=== PATIENT | male | born 1950 | race Caucasian/White ===

== ENCOUNTER 2017-12-15 16:32 | Inpatient (IN) | payer MEDICARE ==
--- NOTE | 2017-12-15 16:55 | Emergency Department Report ---
ED Shortness of Breath HPI - General Stated Complaint: YAW Time Seen by Provider: 12/15/17 16:33 Source: patient, EMS Mode of arrival: Stretcher Limitations: No Limitations - History of Present Illness Initial Comments: Patient is a 67 year-old mellitus emergency room with complaints of shortness of breath and cough that started 2 weeks ago. Patient states that over the last 24 hours the cough sputum production and shortness of breath have worsened. Patient states he's had a productive cough for one week with yellow sputum Patient was brought in by EMS. When EMS arrived at the patient's house they noted his sat was 89% placed him on 100% patient was 99% on his 100% nonrebreather. Patient has increased work to breathe. Patient denies fever chills. Patient denies chest pain. Patient denies diaphoresis. MD Complaint: shortness of breath, cough -: Sudden Consistency: constant Improves With: oxygen, rest, bronchodilators, upright position Worsens With: lying flat, exertion, movement Known History Of: diabetes Context: recent URI Associated Symptoms: cough, sputum production Treatments Prior to Arrival: oxygen, bronchodilator - Related Data Home Oxygen Therapy: No Allergies Allergy/AdvReac Type Severity Reaction Status Date / Time No Known Allergies Allergy Verified 12/15/17 17:22 ED Review of Systems ROS: Stated complaint: YAW Other details as noted in HPI Constitutional: denies: chills, fever Eyes: denies: eye pain, eye discharge, vision change ENT: denies: ear pain, throat pain Respiratory: cough, shortness of breath, wheezing Cardiovascular: denies: chest pain, palpitations Endocrine: no symptoms reported Gastrointestinal: denies: abdominal pain, nausea, diarrhea Genitourinary: denies: urgency, dysuria Musculoskeletal: denies: back pain, joint swelling, arthralgia Skin: denies: rash, lesions Neurological: denies: headache, weakness, paresthesias Psychiatric: denies: anxiety, depression Hematological/Lymphatic: denies: easy bleeding, easy bruising ED Past Medical Hx - Past Medical History Previous Medical History?: Yes Hx Diabetes: Yes Hx Asthma: No Hx COPD: No - Surgical History Past Surgical History?: No - Family History Family history: no significant - Social History Smoking Status: Never Smoker Substance Use Type: None ED Physical Exam - General Limitations: No Limitations General appearance: alert, in distress - Head Head exam: Present: atraumatic, normocephalic - Eye Eye exam: Present: normal appearance - ENT ENT exam: Present: mucous membranes moist - Neck Neck exam: Present: normal inspection - Respiratory Respiratory exam: Present: respiratory distress, wheezes, rhonchi, accessory muscle use, decreased breath sounds - Cardiovascular Cardiovascular Exam: Present: regular rate, normal rhythm. Absent: systolic murmur, diastolic murmur, rubs, gallop - GI/Abdominal GI/Abdominal exam: Present: soft, normal bowel sounds - Rectal Rectal exam: Present: deferred - Extremities Exam Extremities exam: Present: normal inspection - Back Exam Back exam: Present: normal inspection - Neurological Exam Neurological exam: Present: alert, oriented X3 - Psychiatric Psychiatric exam: Present: normal affect, normal mood - Skin Skin exam: Present: warm, dry, intact, other (jaundice appearance). Absent: rash ED Course Vital Signs 12/15/17 12/15/17 12/15/17 17:04 17:09 17:16 Temperature 97.5 F L Pulse Rate 97 H 96 H Pulse Rate [ Anterior Bilateral Throughout] Respiratory 24 22 Rate Respiratory Rate [Anterior Bilateral Throughout] Blood Pressure 152/79 Blood Pressure 152/79 [Right] O2 Sat by Pulse 100 100 Oximetry 12/15/17 12/15/17 12/15/17 17:30 17:43 17:46 Temperature Pulse Rate 95 H 92 H 89 Pulse Rate [ Anterior Bilateral Throughout] Respiratory 20 22 20 Rate Respiratory Rate [Anterior Bilateral Throughout] Blood Pressure 159/88 159/88 159/88 Blood Pressure [Right] O2 Sat by Pulse 100 100 100 Oximetry 12/15/17 12/15/17 12/15/17 17:49 17:56 18:34 Temperature Pulse Rate 96 H Pulse Rate [ 91 H 96 H Anterior Bilateral Throughout] Respiratory 22 Rate Respiratory 21 21 Rate [Anterior Bilateral Throughout] Blood Pressure 165/38 Blood Pressure [Right] O2 Sat by Pulse 100 Oximetry 12/15/17 18:37 Temperature Pulse Rate Pulse Rate [ Anterior Bilateral Throughout] Respiratory Rate Respiratory Rate [Anterior Bilateral Throughout] Blood Pressure Blood Pressure [Right] O2 Sat by Pulse 100 Oximetry - Reevaluation(s) Reevaluation #1: She is currently on BiPAP. 12/15/17 18:29 Is on BiPAP. Gas is improved. PH is 7.32. Patient work to breathe has decreased 12/15/17 18:51 - Consultations Consultation #1: Lennie consulted for admission. Hospitalist to admit patient to ICU. Dr. Best to assume care 12/15/17 18:40 ED Medical Decision Making - Lab Data Result diagrams: 12/15/17 17:16 12/15/17 17:16 - EKG Data -: EKG Interpreted by Me EKG shows normal: sinus rhythm, axis, intervals, QRS complexes, ST-T waves Rate: tachycardia - Radiology Data Radiology results: report reviewed FINAL REPORT EXAM: XR CHEST 1V AP HISTORY: Dyspnea TECHNIQUE: Frontal portable examination of the chest PRIORS: None FINDINGS: Nonspecific pleural thickening may be scar or effusion. Slight left lung base opacity may be pleural effusion or atelectasis. Patchy and interstitial opacities in both lungs may be edema and/or pneumonitis.. Cardiac silhouette size moderately enlarged. No acute displaced fracture. No pneumothorax IMPRESSION: Nonspecific pleural thickening may be scar or effusion. Slight left lung base opacity may be pleural effusion or atelectasis. Patchy and interstitial opacities in both lungs may be edema and/or pneumonitis. Cardiomegaly Transcribed By: BAL Dictated By: MAYTE RIZO MD Electronically Authenticated By: MAYTE RIZO MD Signed Date/Time: 12/15/17 180 - Medical Decision Making This 67-year-old male presents emergency room with shortness of breath 2 weeks. Patient also had cough and sputum production. Symptoms worsening over the last 24 hours. Patient is critically ill with admitted into the ICU and admitted to the hospitalist service for further evaluation and treatment. Patient's labs remarkable for elevated creatinine and elevated d-dimer, elevated troponin, anemia and elevated Wbc. Patient on chest x-ray found to have bilateral pneumonia. Patient will be treated accordingly and given packed red blood cells and antibiotics. Also noted to have cardiomegaly on x-ray. ABG and PH has improved on BiPAP. Lung sounds have improved after nebulizer., - Differential Diagnosis pna. chf. arf. hypoxia. sepsis. bronchitis, anemia. abd labs. Critical Care Time: Yes Critical care attestation.: If time is entered above; I have spent that time in minutes in the direct care of this critically ill patient, excluding procedure time. Critical Care Time: 45 minutes for cc time. ED Disposition Clinical Impression: Hypoxia, Metabolic acidosis, SOB (shortness of breath), Cough Respiratory failure Qualifiers: Chronicity: acute Respiratory failure complication: hypoxia Qualified Code(s): J96.01 - Acute respiratory failure with hypoxia Acute renal failure (ARF) Qualifiers: Acute renal failure type: unspecified Qualified Code(s): N17.9 - Acute kidney failure, unspecified Anemia Qualifiers: Anemia type: unspecified type Qualified Code(s): D64.9 - Anemia, unspecified Pneumonia Qualifiers: Pneumonia type: due to unspecified organism Laterality: unspecified laterality Lung location: unspecified part of lung Qualified Code(s): J18.9 - Pneumonia, unspecified organism Disposition: 09 OP ADMIT IP TO THIS HOSP Is pt being admited?: Yes Does the pt Need Aspirin: No Condition: Critical Time of Disposition: 18:36
[2017-12-15 17:30] LABS: Basophils # (Auto) 0.1 K/mm3 (0.0-0.1); Basophils % (Auto) 0.4 % (0.0-1.8); Eosinophils # (Auto) 0.1 K/mm3 (0.0-0.4); Eosinophils % (Auto) 0.7 % (0.0-4.3); Lymphocytes # (Auto) 1.9 K/mm3 (1.2-5.4); Lymphocytes % (Auto) 11.3 % (13.4-35.0); Mean Corpuscular HGB Conc 30 % (32-34); Mean Corpuscular Volume 76 fl (84-94); Monocytes # (Auto) 1.2 K/mm3 (0.0-0.8); Monocytes % (Auto) 7.4 % (0.0-7.3); Platelet Count 445 K/mm3 (140-440); Red Blood Count 2.12 M/mm3 (3.65-5.03); Red Cell Distribution Width 17.3 % (13.2-15.2)
[2017-12-15 17:33] LABS: Hemoglobin 4.9 gm/dl (11.8-15.2); Mean Corpuscular Hemoglobin 23 pg (28-32)
[2017-12-15] MEDS ORDERED: DUONEB *Not for PRN Use IH ONE ×2 (17:46→17:51)
--- NOTE | 2017-12-15 18:07 | XRay Report ---
FINAL REPORT EXAM: XR CHEST 1V AP HISTORY: Dyspnea TECHNIQUE: Frontal portable examination of the chest PRIORS: None FINDINGS: Nonspecific pleural thickening may be scar or effusion. Slight left lung base opacity may be pleural effusion or atelectasis. Patchy and interstitial opacities in both lungs may be edema and/or pneumonitis.. Cardiac silhouette size moderately enlarged. No acute displaced fracture. No pneumothorax IMPRESSION: Nonspecific pleural thickening may be scar or effusion. Slight left lung base opacity may be pleural effusion or atelectasis. Patchy and interstitial opacities in both lungs may be edema and/or pneumonitis. Cardiomegaly
[2017-12-15 18:20] LABS: Creatine Kinase MB 7.7 ng/mL (0.0-4.0)
[2017-12-15 18:22] LABS: Alanine Aminotransferase 13 units/L (7-56); Albumin 4.2 g/dL (3.9-5); BUN/Creatinine Ratio 11; Blood Urea Nitrogen 76 mg/dL (9-20); Calcium 8.2 mg/dL (8.4-10.2); Hemolysis Index 0
[2017-12-15 18:33] LABS: Chol/HDL Ratio 5.62 %; HDL Cholesterol 29 mg/dL (40-59); LDL Cholesterol,Direct 102 mg/dL (50-130)
[2017-12-15] MEDS ORDERED: NACL 0.9% 500 ML 500 ML IV ONE (18:52)
[2017-12-15] MEDS: ROCEPHIN/NS 1 GM/50 ML 1 GM/50 ML BAG IV ONE ×2 (19:30→20:00)
[2017-12-15] MEDS ORDERED: NACL 0.9% 1000 ML 1,000 ML ONE (20:19)
[2017-12-15] MEDS ORDERED: SODIUM CHLORIDE FLUSH SYRINGE 10 ML IV PRN (21:05)
[2017-12-15] MEDS ORDERED: ZOFRAN IV PRN (21:05)
[2017-12-15] MEDS ORDERED: MORPHINE IV PRN (21:05)
[2017-12-15] MEDS ORDERED: TYLENOL PO PRN (21:05)
--- NOTE | 2017-12-15 21:05 | History and Physical Report ---
History of Present Illness Date of examination: 12/15/17 Date of admission: 12/15/17 18:47 Chief complaint: CC Increasing SOB for 2 weeks History of present illness: History of Present Illness: 67 y/o male with Hx od Diabetes has been coughing and SOB for 2 weeks.Cough productive of Yellow sputum.Getting progressively SOB.EMS was called.His sats were low in 89 percent.patient was put on 100 percent NRB.No fever or chills. No fu with PCP. No hx of Renal disease. Worsening gradually over 2 weeks.No exacerbating or relieving factors. Past Medical History Previous Medical History?: Yes Diabetes: Yes Surgical History Past Surgical History?: No Family History Family history: no significant Social History Smoking Status: Never Smoker Substance Use Type: None Review of Systems ROS: Stated complaint: YAW Other details as noted in HPI Constitutional: denies: chills, fever Eyes: denies: eye pain, eye discharge, vision change ENT: denies: ear pain, throat pain Respiratory: cough, shortness of breath, wheezing Cardiovascular: denies: chest pain, palpitations Endocrine: no symptoms reported Gastrointestinal: denies: abdominal pain, nausea, diarrhea Genitourinary: denies: urgency, dysuria Musculoskeletal: denies: back pain, joint swelling, arthralgia Skin: denies: rash, lesions Neurological: denies: headache, weakness, paresthesias Psychiatric: denies: anxiety, depression Hematological/Lymphatic: denies: easy bleeding, easy bruising Medications and Allergies Allergies Allergy/AdvReac Type Severity Reaction Status Date / Time No Known Allergies Allergy Verified 12/15/17 17:22 Exam - Physical Exam Narrative exam: Severe Resp distress on Bipap - Constitutional Vitals: Temp Pulse Resp BP Pulse Ox 97.5 F L 99 H 16 162/86 100 12/15/17 17:09 12/15/17 20:00 12/15/17 20:00 12/15/17 20:00 12/15/17 20:00 General appearance: Present: no acute distress, severe distress, well-nourished - EENT Eyes: Present: PERRL ENT: hearing intact, clear oral mucosa - Neck Neck: Present: supple, normal ROM - Respiratory Respiratory effort: normal Respiratory: bilateral: CTA, rhonchi, wheezing - Cardiovascular Heart rate: 103 Rhythm: regular Heart Sounds: Present: S1 & S2. Absent: rub, click - Extremities Extremities: no ischemia, pulses intact, pulses symmetrical, No edema Peripheral Pulses: within normal limits - Abdominal General gastrointestinal: Present: soft, non-tender, non-distended, normal bowel sounds Male genitourinary: Present: normal - Rectal Rectal Exam: deferred - Integumentary Integumentary: Present: clear, warm, dry - Musculoskeletal Musculoskeletal: gait normal, strength equal bilaterally - Psychiatric Psychiatric: appropriate mood/affect, intact judgment & insight - Neurologic Neurologic: CNII-XII intact, moves all extremities - Allied Health Allied health notes reviewed: nursing, case management Results - Labs CBC & Chem 7: 12/16/17 03:43 12/16/17 03:43 Labs: Laboratory Last Values WBC 16.7 K/mm3 (4.5-11.0) H 12/15/17 17:16 RBC 2.12 M/mm3 (3.65-5.03) L 12/15/17 17:16 Hgb 4.9 gm/dl (11.8-15.2) L* 12/15/17 17:16 Hct 16.0 % (35.5-45.6) L* 12/15/17 17:16 MCV 76 fl (84-94) L 12/15/17 17:16 MCH 23 pg (28-32) L 12/15/17 17:16 MCHC 30 % (32-34) L 12/15/17 17:16 RDW 17.3 % (13.2-15.2) H 12/15/17 17:16 Plt Count 445 K/mm3 (140-440) H 12/15/17 17:16 Lymph % (Auto) 11.3 % (13.4-35.0) L 12/15/17 17:16 Ponce % (Auto) 7.4 % (0.0-7.3) H 12/15/17 17:16 Eos % (Auto) 0.7 % (0.0-4.3) 12/15/17 17:16 Baso % (Auto) 0.4 % (0.0-1.8) 12/15/17 17:16 Lymph # 1.9 K/mm3 (1.2-5.4) 12/15/17 17:16 Ponce # 1.2 K/mm3 (0.0-0.8) H 12/15/17 17:16 Eos # 0.1 K/mm3 (0.0-0.4) 12/15/17 17:16 Baso # 0.1 K/mm3 (0.0-0.1) 12/15/17 17:16 Seg Neutrophils % 80.2 % (40.0-70.0) H 12/15/17 17:16 Seg Neutrophils # 13.4 K/mm3 (1.8-7.7) H 12/15/17 17:16 D-Dimer 1108.83 ng/mlDDU (0-234) H 12/15/17 17:16 POC ABG pH 7.324 (7.35-7.45) L 12/15/17 18:32 POC ABG pCO2 33.6 (35-45) L 12/15/17 18:32 POC ABG pO2 110 (80-105) H 12/15/17 18:32 POC ABG HCO3 17.5 12/15/17 18:32 POC ABG Total CO2 19 12/15/17 18:32 POC ABG O2 Sat 98 12/15/17 18:32 POC ABG Base Excess -9 12/15/17 18:32 VBG pH 7.204 (7.320-7.420) L 12/15/17 18:01 FiO2 40 % 12/15/17 18:32 Sodium 138 mmol/L (137-145) 12/15/17 17:16 Potassium 5.1 mmol/L (3.6-5.0) H 12/15/17 17:16 Chloride 101.1 mmol/L (98-107) 12/15/17 17:16 Carbon Dioxide 18 mmol/L (22-30) L 12/15/17 17:16 Anion Gap 24 mmol/L 12/15/17 17:16 BUN 76 mg/dL (9-20) H 12/15/17 17:16 Creatinine 7.1 mg/dL (0.8-1.5) H 12/15/17 17:16 Estimated GFR 8 ml/min 12/15/17 17:16 BUN/Creatinine Ratio 11 % 12/15/17 17:16 Glucose 148 mg/dL (75-100) H 12/15/17 17:16 Lactic Acid 1.40 mmol/L (0.7-2.0) 12/15/17 17:16 Calcium 8.2 mg/dL (8.4-10.2) L 12/15/17 17:16 Total Bilirubin < 0.20 mg/dL (0.1-1.2) 12/15/17 17:16 AST 9 units/L (5-40) 12/15/17 17:16 ALT 13 units/L (7-56) 12/15/17 17:16 Alkaline Phosphatase 55 units/L (35-129) 12/15/17 17:16 Total Creatine Kinase 736 units/L (55-170) H 12/15/17 17:16 CK-MB (CK-2) 7.7 ng/mL (0.0-4.0) H 12/15/17 17:16 CK-MB (CK-2) Rel Index 1.0 (0-4) 12/15/17 17:16 Troponin T 0.067 ng/mL (0.00-0.029) H 12/15/17 17:16 NT-Pro-B Natriuret Pep 50795 pg/mL (0-900) H 12/15/17 17:16 Total Protein 7.4 g/dL (6.3-8.2) 12/15/17 17:16 Albumin 4.2 g/dL (3.9-5) 12/15/17 17:16 Albumin/Globulin Ratio 1.3 % 12/15/17 17:16 Triglycerides 206 mg/dL (2-149) H 12/15/17 17:16 Cholesterol 163 mg/dL (50-199) 12/15/17 17:16 LDL Cholesterol Direct 102 mg/dL (50-130) 12/15/17 17:16 HDL Cholesterol 29 mg/dL (40-59) L 12/15/17 17:16 Cholesterol/HDL Ratio 5.62 % 12/15/17 17:16 Blood Type A POSITIVE 12/15/17 17:45 Antibody Screen Negative 12/15/17 17:45 Crossmatch See Detail 12/15/17 17:45 Short CBC 12/15/17 12/16/17 Range/Units 17:16 03:43 WBC 16.7 H 16.3 H (4.5-11.0) K/mm3 Hgb 4.9 L* 7.5 L (11.8-15.2) gm/dl Hct 16.0 L* 24.3 L D (35.5-45.6) % Plt Count 445 H 399 (140-440) K/mm3 BMP 12/15/17 12/16/17 17:16 03:43 Sodium 138 140 Potassium 5.1 H 5.3 H Chloride 101.1 100.5 Carbon Dioxide 18 L 16 L BUN 76 H 76 H Creatinine 7.1 H 7.5 H Glucose 148 H 121 H Calcium 8.2 L 7.9 L Cardiac Enzymes 12/15/17 Range/Units 17:16 Total Creatine Kinase 736 H (55-170) units/L CK-MB (CK-2) 7.7 H (0.0-4.0) ng/mL Troponin T 0.067 H (0.00-0.029) ng/mL Liver Function 12/15/17 12/16/17 Range/Units 17:16 03:43 Total Bilirubin < 0.20 0.20 (0.1-1.2) mg/dL AST 9 20 (5-40) units/L ALT 13 15 (7-56) units/L Alkaline Phosphatase 55 51 (35-129) units/L Albumin 4.2 3.6 L (3.9-5) g/dL - Imaging and Cardiology EKG: report reviewed (Sinus Tachycardia) Imaging and Cardiology: CXR FINDINGS: Nonspecific pleural thickening may be scar or effusion. Slight left lung base opacity may be pleural effusion or atelectasis. Patchy and interstitial opacities in both lungs may be edema and/or pneumonitis.. Cardiac silhouette size moderately enlarged. No acute displaced fracture. No pneumothorax IMPRESSION: Nonspecific pleural thickening may be scar or effusion. Slight left lung base opacity may be pleural effusion or atelectasis. Patchy and interstitial opacities in both lungs may be edema and/or pneumonitis. Cardiomegaly Assessment and Plan Assessment and plan: Critical care Statement: The high probability of a clinically significant, sudden or life threatening deterioration of the [Pulmonary, cadiac, renal] system(s) required my full and direct attention, intervention and personal management. The aggregate critical care time was [45] minutes. This time is in addition to time spent performing reported procedures but includes the following: [x] Data Review and interpretation [x] Patient assessment and monitoring of vital signs [x] Documentation [x] Medication orders and management Advance Directives: Yes (Full code) VTE prophylaxis?: Chemical Plan of care discussed with patient/family: Yes - Patient Problems (1) Acute respiratory failure with hypoxia Current Visit: Yes Status: Acute Plan to address problem: Patientinitiated on BIPAP Duonebs and Albuterol Also IV solumedrol and IV Zosyn/Vanc Intubate if necessary (2) Bilateral pneumonia Current Visit: Yes Status: Acute Qualifiers: Lung location: lower lobe of lung Plan to address problem: OV Zosyn and Vanco (3) Sepsis Current Visit: Yes Status: Acute Qualifiers: Sepsis type: sepsis due to unspecified organism Qualified Code(s): A41.9 - Sepsis, unspecified organism Plan to address problem: Patient meets Sepsis criteria IV abx pressor support if necessary (4) BALDO (acute kidney injury) Current Visit: Yes Status: Acute Plan to address problem: Patients Kidney status is not known Possible BALDO on CKD Needs Emergent HD Neprology and Vascular surgery consulted (5) Severe anemia Current Visit: Yes Status: Chronic Plan to address problem: No active GI Bleed Probably sec to CKD/ESRD transfuse 2 to 4 units of PRBC (6) Acute exacerbation of CHF (congestive heart failure) Current Visit: Yes Status: Acute Qualifiers: Heart failure type: combined systolic and diastolic Qualified Code(s): I50.43 - Acute on chronic combined systolic (congestive) and diastolic ( congestive) heart failure Plan to address problem: Elevated BNP Check ECHO VOlume removal by increased Ultrafiltration (7) DVT prophylaxis Current Visit: Yes Status: Acute Plan to address problem: On Heparin GI prophylaxis initiated
[2017-12-15] MEDS ORDERED: VANCOMYCIN 1,500 MG in NACL 0.9% 500 ML 500 ML IV ONE (22:00)
[2017-12-15] MEDS ORDERED: NACL 0.9% 1000 ML 1,000 ML IV SCH (22:00)
[2017-12-15] MEDS ORDERED: VANCOMYCIN PHARMACY TO DOSE IV SCH (22:00)
[2017-12-15] MEDS ORDERED: PEPCID IV SCH (22:00)
[2017-12-15] MEDS: PROVENTIL IH PRN (22:09)
[2017-12-15] MEDS ORDERED: ATIVAN ONE (22:12)
[2017-12-15] MEDS ORDERED: LASIX ONE (22:12)
[2017-12-15] MEDS ORDERED: LASIX IV ONE (22:13)
[2017-12-15] MEDS: ATIVAN IV PRN (22:21)
[2017-12-15] MEDS ORDERED: PROVENTIL IH ONE (22:22)
[2017-12-15] MEDS ORDERED: DIPRIVAN 10 MG/ML 1,000 MG/100 ML BOTTLE IV ONE (22:53)
--- NOTE | 2017-12-15 22:56 | Emergency Department Report ---
HPI - General Chief Complaint: Dyspnea/Respdistress Time Seen by Provider: 12/15/17 16:33 - HPI HPI: I came to bedside. Patient was in distress. Patient was agitated and would not tolerate BiPAP. I was familiar with patient who has acute renal failure and pulmonary edema with discussion with my colleague Dr. Brody. ABG did improved on BiPAP. Patient was comfortable until he obtained blood products and IVF without urine output according to nurse. Patient immediately had severe desaturation to 45% without BIpap. He became foaming at the mouth. Nurse began chest compressions briefly. Patient did have strong pulse. With the assistance of respiratory therapist and nursing staff, we were able to ventilate patient using [id number]. Without induction medications, I was able intubate patient with 4-0 Izzy blade and 7.5 ETT to intubate the patient. I did see the tube pass through the vocal cords with positive color change with CO2 detector. Pulse ox was 96% after successful intubation. I reviewed CXR after intubation. ED Past Medical Hx - Past Medical History Previous Medical History?: Yes Hx Diabetes: Yes Hx Asthma: No Hx COPD: No - Surgical History Past Surgical History?: No - Social History Smoking Status: Never Smoker Substance Use Type: None ED Review of Systems ROS: Stated complaint: YAW Other details as noted in HPI Constitutional: denies: chills, fever Eyes: denies: eye pain, eye discharge, vision change ENT: denies: ear pain, throat pain Respiratory: cough, shortness of breath, wheezing Cardiovascular: denies: chest pain, palpitations Endocrine: no symptoms reported Gastrointestinal: denies: abdominal pain, nausea, diarrhea Genitourinary: denies: urgency, dysuria Musculoskeletal: denies: back pain, joint swelling, arthralgia Skin: denies: rash, lesions Neurological: denies: headache, weakness, paresthesias Psychiatric: denies: anxiety, depression Hematological/Lymphatic: denies: easy bleeding, easy bruising Physical Exam - Physical Exam Vital Signs: Vital Signs 12/15/17 12/15/17 12/15/17 17:04 17:09 17:16 Temperature 97.5 F L Pulse Rate 97 H 96 H Pulse Rate [ Anterior Bilateral Throughout] Respiratory 24 22 Rate Respiratory Rate [Anterior Bilateral Throughout] Blood Pressure 152/79 Blood Pressure 152/79 [Right] O2 Sat by Pulse 100 100 Oximetry 12/15/17 12/15/17 12/15/17 17:30 17:43 17:46 Temperature Pulse Rate 95 H 92 H 89 Pulse Rate [ Anterior Bilateral Throughout] Respiratory 20 22 20 Rate Respiratory Rate [Anterior Bilateral Throughout] Blood Pressure 159/88 159/88 159/88 Blood Pressure [Right] O2 Sat by Pulse 100 100 100 Oximetry 12/15/17 12/15/17 12/15/17 17:49 17:56 18:00 Temperature Pulse Rate 88 Pulse Rate [ 91 H 96 H Anterior Bilateral Throughout] Respiratory 19 Rate Respiratory 21 21 Rate [Anterior Bilateral Throughout] Blood Pressure 156/86 Blood Pressure [Right] O2 Sat by Pulse 100 Oximetry 12/15/17 12/15/17 12/15/17 18:10 18:20 18:30 Temperature Pulse Rate 88 95 H 94 H Pulse Rate [ Anterior Bilateral Throughout] Respiratory 18 20 21 Rate Respiratory Rate [Anterior Bilateral Throughout] Blood Pressure 156/86 156/86 163/88 Blood Pressure [Right] O2 Sat by Pulse 100 100 100 Oximetry 12/15/17 12/15/17 12/15/17 18:34 18:37 18:40 Temperature Pulse Rate 96 H 98 H Pulse Rate [ Anterior Bilateral Throughout] Respiratory 22 21 Rate Respiratory Rate [Anterior Bilateral Throughout] Blood Pressure 165/38 163/88 Blood Pressure [Right] O2 Sat by Pulse 100 100 100 Oximetry 12/15/17 12/15/17 12/15/17 18:50 19:00 19:10 Temperature Pulse Rate 91 H 96 H 102 H Pulse Rate [ Anterior Bilateral Throughout] Respiratory 19 19 21 Rate Respiratory Rate [Anterior Bilateral Throughout] Blood Pressure 163/88 163/88 163/88 Blood Pressure [Right] O2 Sat by Pulse Oximetry 12/15/17 12/15/17 12/15/17 19:20 19:30 19:40 Temperature Pulse Rate 92 H 93 H 100 H Pulse Rate [ Anterior Bilateral Throughout] Respiratory 14 16 17 Rate Respiratory Rate [Anterior Bilateral Throughout] Blood Pressure 163/88 162/86 162/86 Blood Pressure [Right] O2 Sat by Pulse Oximetry 12/15/17 12/15/17 12/15/17 19:45 19:50 20:00 Temperature Pulse Rate 98 H 99 H 99 H Pulse Rate [ Anterior Bilateral Throughout] Respiratory 25 H 17 16 Rate Respiratory Rate [Anterior Bilateral Throughout] Blood Pressure 162/86 162/86 Blood Pressure [Right] O2 Sat by Pulse 100 100 Oximetry 12/15/17 12/15/17 12/15/17 20:35 20:50 21:00 Temperature Pulse Rate 100 H 115 H 102 H Pulse Rate [ Anterior Bilateral Throughout] Respiratory 18 26 H 16 Rate Respiratory Rate [Anterior Bilateral Throughout] Blood Pressure 184/101 156/75 Blood Pressure [Right] O2 Sat by Pulse 100 92 100 Oximetry 12/15/17 12/15/17 12/15/17 21:20 21:30 21:40 Temperature Pulse Rate 100 H 99 H 98 H Pulse Rate [ Anterior Bilateral Throughout] Respiratory 20 19 20 Rate Respiratory Rate [Anterior Bilateral Throughout] Blood Pressure 181/100 180/101 180/101 Blood Pressure [Right] O2 Sat by Pulse 99 100 99 Oximetry 12/15/17 12/15/17 22:00 22:11 Temperature Pulse Rate Pulse Rate [ 110 H 112 H Anterior Bilateral Throughout] Respiratory Rate Respiratory 28 H 24 Rate [Anterior Bilateral Throughout] Blood Pressure Blood Pressure [Right] O2 Sat by Pulse Oximetry ED Course Vital Signs 12/15/17 12/15/17 12/15/17 17:04 17:09 17:16 Temperature 97.5 F L Pulse Rate 97 H 96 H Pulse Rate [ Anterior Bilateral Throughout] Respiratory 24 22 Rate Respiratory Rate [Anterior Bilateral Throughout] Blood Pressure 152/79 Blood Pressure 152/79 [Right] O2 Sat by Pulse 100 100 Oximetry 12/15/17 12/15/17 12/15/17 17:30 17:43 17:46 Temperature Pulse Rate 95 H 92 H 89 Pulse Rate [ Anterior Bilateral Throughout] Respiratory 20 22 20 Rate Respiratory Rate [Anterior Bilateral Throughout] Blood Pressure 159/88 159/88 159/88 Blood Pressure [Right] O2 Sat by Pulse 100 100 100 Oximetry 12/15/17 12/15/17 12/15/17 17:49 17:56 18:00 Temperature Pulse Rate 88 Pulse Rate [ 91 H 96 H Anterior Bilateral Throughout] Respiratory 19 Rate Respiratory 21 21 Rate [Anterior Bilateral Throughout] Blood Pressure 156/86 Blood Pressure [Right] O2 Sat by Pulse 100 Oximetry 12/15/17 12/15/17 12/15/17 18:10 18:20 18:30 Temperature Pulse Rate 88 95 H 94 H Pulse Rate [ Anterior Bilateral Throughout] Respiratory 18 20 21 Rate Respiratory Rate [Anterior Bilateral Throughout] Blood Pressure 156/86 156/86 163/88 Blood Pressure [Right] O2 Sat by Pulse 100 100 100 Oximetry 12/15/17 12/15/17 12/15/17 18:34 18:37 18:40 Temperature Pulse Rate 96 H 98 H Pulse Rate [ Anterior Bilateral Throughout] Respiratory 22 21 Rate Respiratory Rate [Anterior Bilateral Throughout] Blood Pressure 165/38 163/88 Blood Pressure [Right] O2 Sat by Pulse 100 100 100 Oximetry 12/15/17 12/15/17 12/15/17 18:50 19:00 19:10 Temperature Pulse Rate 91 H 96 H 102 H Pulse Rate [ Anterior Bilateral Throughout] Respiratory 19 19 21 Rate Respiratory Rate [Anterior Bilateral Throughout] Blood Pressure 163/88 163/88 163/88 Blood Pressure [Right] O2 Sat by Pulse Oximetry 12/15/17 12/15/17 12/15/17 19:20 19:30 19:40 Temperature Pulse Rate 92 H 93 H 100 H Pulse Rate [ Anterior Bilateral Throughout] Respiratory 14 16 17 Rate Respiratory Rate [Anterior Bilateral Throughout] Blood Pressure 163/88 162/86 162/86 Blood Pressure [Right] O2 Sat by Pulse Oximetry 12/15/17 12/15/17 12/15/17 19:45 19:50 20:00 Temperature Pulse Rate 98 H 99 H 99 H Pulse Rate [ Anterior Bilateral Throughout] Respiratory 25 H 17 16 Rate Respiratory Rate [Anterior Bilateral Throughout] Blood Pressure 162/86 162/86 Blood Pressure [Right] O2 Sat by Pulse 100 100 Oximetry 12/15/17 12/15/17 12/15/17 20:35 20:50 21:00 Temperature Pulse Rate 100 H 115 H 102 H Pulse Rate [ Anterior Bilateral Throughout] Respiratory 18 26 H 16 Rate Respiratory Rate [Anterior Bilateral Throughout] Blood Pressure 184/101 156/75 Blood Pressure [Right] O2 Sat by Pulse 100 92 100 Oximetry 12/15/17 12/15/17 12/15/17 21:20 21:30 21:40 Temperature Pulse Rate 100 H 99 H 98 H Pulse Rate [ Anterior Bilateral Throughout] Respiratory 20 19 20 Rate Respiratory Rate [Anterior Bilateral Throughout] Blood Pressure 181/100 180/101 180/101 Blood Pressure [Right] O2 Sat by Pulse 99 100 99 Oximetry 12/15/17 12/15/17 22:00 22:11 Temperature Pulse Rate Pulse Rate [ 110 H 112 H Anterior Bilateral Throughout] Respiratory Rate Respiratory 28 H 24 Rate [Anterior Bilateral Throughout] Blood Pressure Blood Pressure [Right] O2 Sat by Pulse Oximetry ED Medical Decision Making - Lab Data Result diagrams: 12/15/17 17:16 12/15/17 17:16 Critical care attestation.: If time is entered above; I have spent that time in minutes in the direct care of this critically ill patient, excluding procedure time. ED Disposition Clinical Impression: Metabolic acidosis, Hypoxia Respiratory failure Qualifiers: Chronicity: acute Respiratory failure complication: hypoxia Qualified Code(s): J96.01 - Acute respiratory failure with hypoxia Disposition: DC-09 OP ADMIT IP TO THIS HOSP Is pt being admited?: Yes Does the pt Need Aspirin: No Condition: Critical
[2017-12-15] MEDS ORDERED: ARTIFICIAL TEARS OPHTH OINT OU PRN (22:58)
[2017-12-15] MEDS ORDERED: VASELINE LIP THERAPY TP PRN (22:58)
[2017-12-15] MEDS: DIPRIVAN 10 MG/ML 1,000 MG/100 ML BOTTLE IV SCH (23:00)
--- NOTE | 2017-12-15 23:21 | XRay Report ---
FINAL REPORT PROCEDURE: XR CHEST 1V AP TECHNIQUE: Chest radiograph anteroposterior view. CPT 50896 HISTORY: ETT placement COMPARISON: 12/15/2017 FINDINGS: Heart: The heart size is slightly prominent but stable. Mediastinum/Vessels: Normal. Lungs/Pleural space: Mild vascular congestion with bilateral lower lung atelectasis. No effusion or pneumothorax. Bony thorax: No acute osseous abnormality. Life support devices: The endotracheal tube ends 5 centimeters above the tricia. A nasogastric tube ends below the hemidiaphragms. IMPRESSION: Vascular congestion with bilateral lower lung atelectasis. Mild cardiomegaly unchanged. The endotracheal tube and nasogastric tube are properly positioned..
[2017-12-15] MEDS: SODIUM CHLORIDE FLUSH SYRINGE 10 ML IV SCH (23:29)
[2017-12-15] MEDS: ZOSYN/NS 2.25 GM/50ML 2.25 GM/50 ML BAG IV SCH (23:30)
[2017-12-15] MEDS: SOLU-Medrol IV SCH (23:32)
[2017-12-15] MEDS: PEPCID IV SCH (23:32)
[2017-12-15] MEDS ORDERED: SOLU-Medrol ONE (23:35)
[2017-12-15] MEDS ORDERED: PEPCID IV ONE (23:36)
[2017-12-15] MEDS ORDERED: NACL 0.9% 100 ML IV PRN (23:58)
[2017-12-16] MEDS: PROVENTIL IH PRN (01:10)
[2017-12-16] MEDS ORDERED: PROVENTIL IH ONE (01:19)
--- NOTE | 2017-12-16 03:03 | Operative Report ---
Operative Report Operative Report: Exam: Ultrasound-guided placement of vas cath Clinical indication: Patient presenting with renal failure with volume overload requiring intubation Date: 12/16/2017 Procedure: Given the fact that the patient had no family members present and required emergency access, emergency consent was obtained. The procedure was performed at bedside in the ER. Initial ultrasound evaluation of the right groin demonstrated a patent right common femoral vein. The patient's right groin was prepped and draped in the usual sterile fashion. 1% lidocaine was used for anesthesia. Under ultrasound guidance, the right common femoral vein was cannulated with a 7 cm 18-gauge needle. A 0.035 guidewire was advanced centrally easily. The needle was removed and following serial dilation, a 30 cm dialysis catheter was placed over the guidewire and advanced centrally easily. Nonpulsatile blood return from all 3 ports. The ports were flushed and aspirated and locked with sterile saline. The catheter was securely fasten the skin surface using 2-0 nylon suture and a sterile dressing applied. The patient tolerated the procedure well. There were no immediate post procedure complications. Impression: Ultrasound guided placement of vas cath via the right common femoral vein.
[2017-12-16 03:14] LABS: Iron 37 ug/dL (49-181); Total Iron Binding Capacity 416 mcg/dL (250-450)
[2017-12-16] MEDS: DIPRIVAN 10 MG/ML 1,000 MG/100 ML BOTTLE IV SCH ×3 (03:57→19:20)
[2017-12-16 03:58] LABS: Basophils # (Auto) 0.1 K/mm3 (0.0-0.1); Basophils % (Auto) 0.5 % (0.0-1.8); Eosinophils % (Auto) 0.1 % (0.0-4.3); Hematocrit 24.3 % (35.5-45.6); Hemoglobin 7.5 gm/dl (11.8-15.2); Lymphocytes # (Auto) 1.3 K/mm3 (1.2-5.4); Lymphocytes % (Auto) 7.9 % (13.4-35.0); Mean Corpuscular HGB Conc 31 % (32-34); Mean Corpuscular Volume 81 fl (84-94); Monocytes # (Auto) 1.3 K/mm3 (0.0-0.8); Monocytes % (Auto) 7.8 % (0.0-7.3); Platelet Count 399 K/mm3 (140-440); Red Blood Count 3.01 M/mm3 (3.65-5.03); Red Cell Distribution Width 17.7 % (13.2-15.2)
[2017-12-16 04:02] LABS: Mean Corpuscular Hemoglobin 25 pg (28-32)
[2017-12-16] MEDS ORDERED: NACL 0.9% 100 ML IV PRN (04:33)
[2017-12-16 05:50] LABS: Albumin 3.6 g/dL (3.9-5); Calcium 7.9 mg/dL (8.4-10.2)
[2017-12-16 05:57] LABS: Hepatitis B Core IgM Non-Reactive (NonReactive); Hepatitis B Surface Antigen Non-Reactive (Negative); Hepatitis C Virus Antibody Non-Reactive (NonReactive)
--- NOTE | 2017-12-16 06:17 | Ultrasound Report ---
FINAL REPORT PROCEDURE: US RENAL BILAT TECHNIQUE: Real-time sonography in multiple planes of the kidneys, ureters and urinary bladder was performed with image documentation. CPT 25960 HISTORY: BALDO COMPARISON: No prior studies are available for comparison. FINDINGS: RIGHT kidney: There are few small cysts identified in the right renal cortex. These measure 14 and 13 millimeters. No hydronephrosis. Slightly echogenic renal parenchyma.. Length: 7.8 cm. LEFT kidney: There is slightly echogenic renal parenchyma. No hydronephrosis. No renal cysts are stones.. Length: 8.8cm. Bladder: Normal. IMPRESSION: There are few small cysts identified in the right renal cortex measuring up to 14 millimeters. No hydronephrosis is seen. Both kidneys have slightly echogenic renal parenchyma..
[2017-12-16] MEDS ORDERED: NACL 0.9% 500 ML 500 ML IV ONE ×2 (07:12→22:26)
[2017-12-16] MEDS: DUONEB *Not for PRN Use IH SCH ×3 (07:16→21:26)
[2017-12-16] MEDS: ZOSYN/NS 2.25 GM/50ML 2.25 GM/50 ML BAG IV SCH ×3 (07:54→22:48)
[2017-12-16] MEDS: SOLU-Medrol IV SCH (07:54)
[2017-12-16] MEDS: HumaLOG SUB-Q SCH ×2 (07:55→12:00)
[2017-12-16 10:28] LABS: Basophils # (Auto) 0.1 K/mm3 (0.0-0.1); Basophils % (Auto) 0.3 % (0.0-1.8); Eosinophils % (Auto) 0.1 % (0.0-4.3); Hematocrit 24.5 % (35.5-45.6); Hemoglobin 7.9 gm/dl (11.8-15.2); Lymphocytes # (Auto) 1.5 K/mm3 (1.2-5.4); Lymphocytes % (Auto) 8.6 % (13.4-35.0); Mean Corpuscular HGB Conc 32 % (32-34); Mean Corpuscular Volume 78 fl (84-94); Monocytes # (Auto) 1.3 K/mm3 (0.0-0.8); Monocytes % (Auto) 7.3 % (0.0-7.3); Platelet Count 393 K/mm3 (140-440); Red Blood Count 3.16 M/mm3 (3.65-5.03); Red Cell Distribution Width 17.7 % (13.2-15.2)
--- NOTE | 2017-12-16 10:39 | Consultation ---
History of Present Illness - Reason for Consult Consult date: 12/16/17 acute renal failure, chronic renal failure Requesting physician: DAVID RIVAS - History of Present Illness This is a 67 yo M with unknown past medical history, who was brought in to ER by EMS for progressive shortness of breath, associated with productive cough. As per EMS reports, when they arrived at patient's house O2sat was noted to be 89%, pt was placed on 100% nonrebreather and brought to the ER. CXR showed evidence of cardiomegaly and pulmonary edema, and since pt developed worsening respiratory failure with hypercapnia/hypoxia pt required intubation. Labs showed elevated WBC > 17, severe anemia with Hb as low as 4.9, elevated BUN /Cr at 76/7.1mg/dl along with hyperkalemia and metabolic acidosis. renal consult requested for management of Acute renal failure with volume overload, and for HD evaluation since pt required further blood transfusion. attempted to reach family members however all listed Tel Nrs not associated with Mr BURKETT's family. history obtained by chart review and by night attending Past History Past Medical History: hypertension, renal failure Past Surgical History: No surgical history Social history: no significant social history Family history: no significant family history Medications and Allergies Allergies Allergy/AdvReac Type Severity Reaction Status Date / Time No Known Allergies Allergy Verified 12/15/17 17:22 Active Meds: Active Medications Acetaminophen (Tylenol) 650 mg PO Q4H PRN PRN Reason: Pain MILD(1-3)/Fever >100.5/[place]AL[place] Albuterol (Proventil) 2.5 mg IH Q4HRT PRN PRN Reason: Shortness Of Breath Last Admin: 12/16/17 01:10 Dose: 2.5 mg Albuterol/Ipratropium (Duoneb *Not For Prn Use*) 1 ampul IH QIDRT [facility] Last Admin: 12/16/17 07:16 Dose: 1 ampul Famotidine (Pepcid) 20 mg IV QDAY [facility] Last Admin: 12/15/17 23:32 Dose: 20 mg Heparin Sodium (Porcine) (Heparin) 5,000 unit SUB-Q Q12HR [facility] Hydrophilic Ointment (Vaseline Lip Therapy) 1 applic TP Q2HR PRN PRN Reason: Dry Lips Sodium Chloride (Nacl 0.9% 1000 Ml) 1,000 mls @ 75 mls/hr IV DIRECT NIYA Piperacillin Sod/Tazobactam Sod (Zosyn/Ns 2.25 Gm/50ml) 2.25 gm in 50 mls @ 100 mls/hr IV Q8HR [facility]; Protocol Last Admin: 12/16/17 07:54 Dose: Not Given Propofol (Diprivan 10 Mg/Ml) 1,000 mg in 100 mls @ 2.313 mls/hr IV TITR [facility]; Protocol Last Admin: 12/16/17 08:38 Dose: 50 mcg/kg/min, 23.133 mls/hr Sodium Chloride (Nacl 0.9%) 100 mls @ 999 mls/hr IV MICHAELA PRN PRN Reason: Hypotension Insulin Human Lispro (Humalog) 0 unit SUB-Q ACHS [facility]; Protocol Last Admin: 12/16/17 07:55 Dose: Not Given Lorazepam (Ativan) 1 mg IV Q4H PRN PRN Reason: Agitation Last Admin: 12/15/17 22:21 Dose: 1 mg Methylprednisolone Sodium Succinate (Solu-Medrol) 125 mg IV Q8HR [facility] Last Admin: 12/16/17 07:54 Dose: Not Given Morphine Sulfate (Morphine) 2 mg IV Q4H PRN PRN Reason: Pain, Moderate (4-6) Multi-Ingred Cream/Lotion/Oil/Oint (Artificial Tears Ophth Oint) 1 applic OU Q4HR PRN PRN Reason: Dry Eye(s) Ondansetron HCl (Zofran) 4 mg IV Q8H PRN PRN Reason: Nausea And Vomiting Sodium Chloride (Sodium Chloride Flush Syringe 10 Ml) 10 ml IV BID [facility] Last Admin: 12/15/17 23:29 Dose: 10 ml Sodium Chloride (Sodium Chloride Flush Syringe 10 Ml) 10 ml IV PRN PRN PRN Reason: LINE FLUSH Review of Systems ROS unobtainable: due to endotracheal tube Exam - Vital Signs Vital signs: Vital Signs Pulse Ox 100 12/15/17 17:04 - General Appearance General appearance: well-developed, well-nourished, appears stated age, sedated on ventilator, intubated EENT: ATNC, PERRL, mucous membranes moist Neck: Present: neck supple Respiratory: Decreased Breath Sounds Heart: regular, S1S2 Gastrointestinal: Present: normoactive bowel sounds Integumentary: no rash, other (no edema ) Neurologic: other (intubated, sedated ) Results - Lab Results 12/16/17 10:11 12/16/17 03:43 Most recent lab results Calcium 7.9 mg/dL (8.4-10.2) L 12/16/17 03:43 Laboratory Tests 12/15/17 12/15/17 12/15/17 17:16 17:16 17:16 POC ABG pH POC ABG pCO2 POC ABG pO2 POC ABG HCO3 POC ABG Total CO2 POC ABG O2 Sat POC ABG Base Excess FiO2 Hemoglobin A1c Lactic Acid 1.40 Calcium Iron TIBC Ferritin Total Bilirubin AST ALT Alkaline Phosphatase Total Creatine Kinase 736 H CK-MB (CK-2) 7.7 H CK-MB (CK-2) Rel Index 1.0 Troponin T 0.067 H NT-Pro-B Natriuret Pep 96291 H Total Protein 7.4 Albumin 4.2 Albumin/Globulin Ratio 1.3 Triglycerides 206 H Cholesterol 163 LDL Cholesterol Direct 102 HDL Cholesterol 29 L Cholesterol/HDL Ratio 5.62 Vitamin B12 Folate Hepatitis A IgM Ab Hep Bs Antigen Hep B Core IgM Ab Hepatitis C Antibody 12/15/17 12/16/17 12/16/17 17:16 00:24 00:24 POC ABG pH POC ABG pCO2 POC ABG pO2 POC ABG HCO3 POC ABG Total CO2 POC ABG O2 Sat POC ABG Base Excess FiO2 Hemoglobin A1c < 4.2 Lactic Acid Calcium Iron 37 L TIBC 416 Ferritin 16.1 Total Bilirubin AST ALT Alkaline Phosphatase Total Creatine Kinase CK-MB (CK-2) CK-MB (CK-2) Rel Index Troponin T NT-Pro-B Natriuret Pep Total Protein Albumin Albumin/Globulin Ratio Triglycerides Cholesterol LDL Cholesterol Direct HDL Cholesterol Cholesterol/HDL Ratio Vitamin B12 Folate Hepatitis A IgM Ab Hep Bs Antigen Hep B Core IgM Ab Hepatitis C Antibody 12/16/17 12/16/17 12/16/17 00:24 00:24 03:41 POC ABG pH 7.211 L POC ABG pCO2 45.3 H POC ABG pO2 123 H POC ABG HCO3 18.2 POC ABG Total CO2 20 POC ABG O2 Sat 98 POC ABG Base Excess -10 FiO2 50 Hemoglobin A1c Lactic Acid Calcium Iron TIBC Ferritin Total Bilirubin AST ALT Alkaline Phosphatase Total Creatine Kinase CK-MB (CK-2) CK-MB (CK-2) Rel Index Troponin T NT-Pro-B Natriuret Pep Total Protein Albumin Albumin/Globulin Ratio Triglycerides Cholesterol LDL Cholesterol Direct HDL Cholesterol Cholesterol/HDL Ratio Vitamin B12 221.6 Folate 14.63 Hepatitis A IgM Ab Hep Bs Antigen Hep B Core IgM Ab Hepatitis C Antibody 12/16/17 12/16/17 03:43 04:47 POC ABG pH POC ABG pCO2 POC ABG pO2 POC ABG HCO3 POC ABG Total CO2 POC ABG O2 Sat POC ABG Base Excess FiO2 Hemoglobin A1c Lactic Acid Calcium 7.9 L Iron TIBC Ferritin Total Bilirubin 0.20 AST 20 ALT 15 Alkaline Phosphatase 51 Total Creatine Kinase CK-MB (CK-2) CK-MB (CK-2) Rel Index Troponin T NT-Pro-B Natriuret Pep Total Protein 6.4 Albumin 3.6 L Albumin/Globulin Ratio 1.3 Triglycerides Cholesterol LDL Cholesterol Direct HDL Cholesterol Cholesterol/HDL Ratio Vitamin B12 Folate Hepatitis A IgM Ab Pending Hep Bs Antigen Non-reactive Hep B Core IgM Ab Non-reactive Hepatitis C Antibody Non-reactive Assessment and Plan - Patient Problems (1) Acute renal failure (ARF) Current Visit: Yes Status: Acute Plan to address problem: etiology of BALDO is uncertain at present, possible acute on chronic cardio renal syndrome, ischemic ATN in the setting of severe anemia and sepsis may contribute to BALDO. Given echogenic kidneys on renal US suspect underlying CKD. Emergent HD initiated early this AM for volume control, correction of hyperkalemia/met acidosis. cont supportive care for BALDO/ATN avoid nephrotoxins, NSAIDs, IV contrast strict I/Os will monitor lytes renal parameters closely and make further recommendations. Total CCM time spent 51 min (2) Hyperkalemia Current Visit: Yes Status: Acute Plan to address problem: expect to correct with HD. cont 2g K renal diet. (3) Acute pulmonary edema Current Visit: Yes Status: Acute Plan to address problem: s/p HD with target UF 2Kg. will monitor volume status, i/Os and assess indications for further renal replacement therapy on a daily basis (4) Bilateral pneumonia Current Visit: Yes Status: Acute Qualifiers: Lung location: lower lobe of lung Plan to address problem: empiric ABXs started, dose renally adjusted (5) Acute respiratory failure with hypoxia Current Visit: Yes Status: Acute Plan to address problem: vent management as per pulm/CCM (6) Anemia Current Visit: Yes Status: Acute Plan to address problem: s/p 2PRBC transfusion. start EPO with HD. (7) Metabolic acidosis Current Visit: Yes Status: Acute Plan to address problem: combined respiratory/metabolic acidosis. expect to improve s/p intubation and on HD
[2017-12-16 10:40] LABS: Mean Corpuscular Hemoglobin 25 pg (28-32)
--- NOTE | 2017-12-16 11:27 | Progress Note ---
Assessment and Plan /Acute respiratory failure with hypoxia -s/p intubation -cont IV solumedrol and IV Zosyn/Vanc /Bilateral pneumonia - OV Zosyn and Vanco, follow Cx /Sepsis - likely from PNA, cont IV abx / BALDO (acute kidney injury) Patients Kidney status is not known Possible BALDO on CKD Needs Emergent HD Neprology and Vascular surgery consulted s/p vascath placement / Severe anemia No active GI Bleed Probably sec to CKD/ESRD transfused 2 out of 4 units of PRBC /Acute exacerbation of CHF (congestive heart failure), suspected Elevated BNP ordered 2d ECHO VOlume removal by increased Ultrafiltration / DVT prophylaxis On Heparin GI prophylaxis initiated Brief history: This is a 67 yo M with unknown past medical history, who was brought in to ER by EMS for progressive shortness of breath, associated with productive cough. As per EMS reports, Pt was placed on 100% nonrebreather and brought to the ER. CXR showed evidence of cardiomegaly and pulmonary edema, and since pt developed worsening respiratory failure with hypercapnia/hypoxia pt required intubation. Labs showed elevated WBC > 17, severe anemia with Hb as low as 4.9, elevated BUN/Cr at 76/7.1mg/dl along with hyperkalemia and metabolic acidosis. He was transfused and vascath placed for HD per renal. Hospitalist Physical exam: GENERAL: elderly male lying on bed, sedated. HEENT: Normocephalic. Atraumatic. No conjunctival congestion or icterus. Patient has moist mucous membranes. NECK: Supple. Trachea midline. CHEST/LUNGS: Clear to auscultated bilaterally, Intubated HEART/CARDIOVASCULAR: Regular in rate and rhythm. S1 and S2 positive. ABDOMEN: Abdomen is soft, nontender. Patient has normal bowel sounds. SKIN: There is no rash. Warm and dry. NEURO: seadted MUSCULOSKELETAL: No joint effusion or tenderness. EXTRIMITY: No edema, no cyanosis or clubbing. PSYCH: unable to assess Subjective Date of service: 12/16/17 Interval history: Patient seen and examined. Medical records and medication list reviewed. No acute event overnight noted by the RN. Patient currently intubated and sedated Objective - Constitutional Vitals: Vital Signs - 12hr 12/15/17 12/15/17 12/15/17 23:30 23:36 23:45 Temperature Pulse Rate 91 H 92 H 94 H Pulse Rate [ Anterior Bilateral Throughout] Respiratory 19 17 15 Rate Respiratory Rate [Anterior Bilateral Throughout] Blood Pressure 148/80 148/80 155/77 O2 Sat by Pulse 98 97 97 Oximetry O2 Sat by Pulse Oximetry [ Anterior Bilateral Throughout] 12/16/17 12/16/17 12/16/17 00:00 00:15 00:30 Temperature Pulse Rate 90 98 H 103 H Pulse Rate [ Anterior Bilateral Throughout] Respiratory 17 16 17 Rate Respiratory Rate [Anterior Bilateral Throughout] Blood Pressure 145/88 131/83 131/83 O2 Sat by Pulse 98 100 97 Oximetry O2 Sat by Pulse Oximetry [ Anterior Bilateral Throughout] 12/16/17 12/16/17 12/16/17 00:45 01:00 01:11 Temperature Pulse Rate 89 86 Pulse Rate [ 80 79 Anterior Bilateral Throughout] Respiratory 17 15 Rate Respiratory 22 20 Rate [Anterior Bilateral Throughout] Blood Pressure 137/78 140/86 O2 Sat by Pulse 99 94 Oximetry O2 Sat by Pulse Oximetry [ Anterior Bilateral Throughout] 12/16/17 12/16/17 12/16/17 01:15 01:30 01:46 Temperature Pulse Rate 80 82 83 Pulse Rate [ Anterior Bilateral Throughout] Respiratory 18 18 18 Rate Respiratory Rate [Anterior Bilateral Throughout] Blood Pressure 141/78 138/78 139/78 O2 Sat by Pulse 100 99 99 Oximetry O2 Sat by Pulse Oximetry [ Anterior Bilateral Throughout] 12/16/17 12/16/17 12/16/17 02:00 02:15 02:30 Temperature Pulse Rate 83 86 85 Pulse Rate [ Anterior Bilateral Throughout] Respiratory 19 21 21 Rate Respiratory Rate [Anterior Bilateral Throughout] Blood Pressure 139/78 153/89 146/80 O2 Sat by Pulse 98 97 99 Oximetry O2 Sat by Pulse Oximetry [ Anterior Bilateral Throughout] 12/16/17 12/16/17 12/16/17 02:45 03:00 03:15 Temperature Pulse Rate 85 84 84 Pulse Rate [ Anterior Bilateral Throughout] Respiratory 14 15 15 Rate Respiratory Rate [Anterior Bilateral Throughout] Blood Pressure 136/82 138/81 130/86 O2 Sat by Pulse 100 100 100 Oximetry O2 Sat by Pulse Oximetry [ Anterior Bilateral Throughout] 12/16/17 12/16/17 12/16/17 03:30 03:45 03:46 Temperature Pulse Rate 96 H 91 H 93 H Pulse Rate [ Anterior Bilateral Throughout] Respiratory 24 20 Rate Respiratory Rate [Anterior Bilateral Throughout] Blood Pressure 130/86 154/86 O2 Sat by Pulse 98 100 100 Oximetry O2 Sat by Pulse Oximetry [ Anterior Bilateral Throughout] 12/16/17 12/16/17 12/16/17 04:00 04:15 04:30 Temperature Pulse Rate 89 85 84 Pulse Rate [ Anterior Bilateral Throughout] Respiratory 19 20 22 Rate Respiratory Rate [Anterior Bilateral Throughout] Blood Pressure 127/78 119/77 141/76 O2 Sat by Pulse 97 99 98 Oximetry O2 Sat by Pulse Oximetry [ Anterior Bilateral Throughout] 12/16/17 12/16/17 12/16/17 04:45 05:00 05:15 Temperature Pulse Rate 80 84 85 Pulse Rate [ Anterior Bilateral Throughout] Respiratory 22 16 15 Rate Respiratory Rate [Anterior Bilateral Throughout] Blood Pressure 136/76 147/79 138/79 O2 Sat by Pulse 98 99 98 Oximetry O2 Sat by Pulse Oximetry [ Anterior Bilateral Throughout] 12/16/17 12/16/17 12/16/17 05:30 05:45 06:00 Temperature 98.8 F Pulse Rate 83 82 83 Pulse Rate [ Anterior Bilateral Throughout] Respiratory 22 22 Rate Respiratory Rate [Anterior Bilateral Throughout] Blood Pressure 141/80 136/77 139/80 O2 Sat by Pulse 99 Oximetry O2 Sat by Pulse 100 Oximetry [ Anterior Bilateral Throughout] 12/16/17 12/16/17 12/16/17 06:15 06:30 06:45 Temperature Pulse Rate 81 84 80 Pulse Rate [ Anterior Bilateral Throughout] Respiratory Rate Respiratory Rate [Anterior Bilateral Throughout] Blood Pressure 141/78 131/78 125/75 O2 Sat by Pulse Oximetry O2 Sat by Pulse Oximetry [ Anterior Bilateral Throughout] 12/16/17 12/16/17 12/16/17 07:00 07:07 07:15 Temperature Pulse Rate 76 83 84 Pulse Rate [ Anterior Bilateral Throughout] Respiratory Rate Respiratory Rate [Anterior Bilateral Throughout] Blood Pressure 128/73 128/73 113/68 O2 Sat by Pulse 99 Oximetry O2 Sat by Pulse Oximetry [ Anterior Bilateral Throughout] 12/16/17 12/16/17 12/16/17 07:16 07:30 07:45 Temperature Pulse Rate 78 80 Pulse Rate [ 89 Anterior Bilateral Throughout] Respiratory Rate Respiratory 23 Rate [Anterior Bilateral Throughout] Blood Pressure 119/73 121/74 O2 Sat by Pulse Oximetry O2 Sat by Pulse Oximetry [ Anterior Bilateral Throughout] 12/16/17 12/16/17 12/16/17 08:00 08:15 08:30 Temperature Pulse Rate 83 80 84 Pulse Rate [ Anterior Bilateral Throughout] Respiratory Rate Respiratory Rate [Anterior Bilateral Throughout] Blood Pressure 122/72 124/70 136/84 O2 Sat by Pulse Oximetry O2 Sat by Pulse Oximetry [ Anterior Bilateral Throughout] 12/16/17 12/16/17 12/16/17 08:45 09:00 11:10 Temperature 97.2 F L Pulse Rate 92 H 82 101 H Pulse Rate [ Anterior Bilateral Throughout] Respiratory 22 Rate Respiratory Rate [Anterior Bilateral Throughout] Blood Pressure 143/73 126/81 140/77 O2 Sat by Pulse 97 Oximetry O2 Sat by Pulse 99 Oximetry [ Anterior Bilateral Throughout] 12/16/17 11:19 Temperature Pulse Rate Pulse Rate [ 93 H Anterior Bilateral Throughout] Respiratory Rate Respiratory 22 Rate [Anterior Bilateral Throughout] Blood Pressure O2 Sat by Pulse Oximetry O2 Sat by Pulse Oximetry [ Anterior Bilateral Throughout] - Labs CBC & Chem 7: 12/17/17 00:11 12/16/17 03:43 Labs: Abnormal lab results 12/15/17 12/15/17 12/15/17 Range/Units 17:16 17:16 17:16 WBC 16.7 H (4.5-11.0) K/mm3 RBC 2.12 L (3.65-5.03) M/mm3 Hgb 4.9 L* (11.8-15.2) gm/dl Hct 16.0 L* (35.5-45.6) % MCV 76 L (84-94) fl MCH 23 L (28-32) pg MCHC 30 L (32-34) % RDW 17.3 H (13.2-15.2) % Plt Count 445 H (140-440) K/mm3 Lymph % (Auto) 11.3 L (13.4-35.0) % [place] % (Auto) 7.4 H (0.0-7.3) % [place] # 1.2 H (0.0-0.8) K/mm3 Seg Neutrophils % 80.2 H (40.0-70.0) % Seg Neutrophils # 13.4 H (1.8-7.7) K/mm3 D-Dimer 1108.83 H (0-234) ng/mlDDU POC ABG pH (7.35-7.45) POC ABG pCO2 (35-45) POC ABG pO2 (80-105) VBG pH (7.320-7.420) Potassium 5.1 H (3.6-5.0) mmol/L Carbon Dioxide 18 L (22-30) mmol/L BUN 76 H (9-20) mg/dL Creatinine 7.1 H (0.8-1.5) mg/dL Glucose 148 H (75-100) mg/dL Calcium 8.2 L (8.4-10.2) mg/dL Iron (49-181) ug/dL Total Creatine Kinase 736 H (55-170) units/L CK-MB (CK-2) 7.7 H (0.0-4.0) ng/mL Troponin T 0.067 H (0.00-0.029) ng/mL NT-Pro-B Natriuret Pep (0-900) pg/mL Albumin (3.9-5) g/dL Triglycerides 206 H (2-149) mg/dL HDL Cholesterol 29 L (40-59) mg/dL Crossmatch 12/15/17 12/15/17 12/15/17 Range/Units 17:16 17:45 18:01 WBC (4.5-11.0) K/mm3 RBC (3.65-5.03) M/mm3 Hgb (11.8-15.2) gm/dl Hct (35.5-45.6) % MCV (84-94) fl MCH (28-32) pg MCHC (32-34) % RDW (13.2-15.2) % Plt Count (140-440) K/mm3 Lymph % (Auto) (13.4-35.0) % [place] % (Auto) (0.0-7.3) % [place] # (0.0-0.8) K/mm3 Seg Neutrophils % (40.0-70.0) % Seg Neutrophils # (1.8-7.7) K/mm3 D-Dimer (0-234) ng/mlDDU POC ABG pH (7.35-7.45) POC ABG pCO2 (35-45) POC ABG pO2 (80-105) VBG pH 7.204 L (7.320-7.420) Potassium (3.6-5.0) mmol/L Carbon Dioxide (22-30) mmol/L BUN (9-20) mg/dL Creatinine (0.8-1.5) mg/dL Glucose (75-100) mg/dL Calcium (8.4-10.2) mg/dL Iron (49-181) ug/dL Total Creatine Kinase (55-170) units/L CK-MB (CK-2) (0.0-4.0) ng/mL Troponin T (0.00-0.029) ng/mL NT-Pro-B Natriuret Pep 89752 H (0-900) pg/mL Albumin (3.9-5) g/dL Triglycerides (2-149) mg/dL HDL Cholesterol (40-59) mg/dL Crossmatch See Detail 12/15/17 12/15/17 12/16/17 Range/Units 18:32 23:26 00:24 WBC (4.5-11.0) K/mm3 RBC (3.65-5.03) M/mm3 Hgb (11.8-15.2) gm/dl Hct (35.5-45.6) % MCV (84-94) fl MCH (28-32) pg MCHC (32-34) % RDW (13.2-15.2) % Plt Count (140-440) K/mm3 Lymph % (Auto) (13.4-35.0) % [place] % (Auto) (0.0-7.3) % [place] # (0.0-0.8) K/mm3 Seg Neutrophils % (40.0-70.0) % Seg Neutrophils # (1.8-7.7) K/mm3 D-Dimer (0-234) ng/mlDDU POC ABG pH 7.324 L 7.142 L (7.35-7.45) POC ABG pCO2 33.6 L 50.4 H (35-45) POC ABG pO2 110 H 107 H (80-105) VBG pH (7.320-7.420) Potassium (3.6-5.0) mmol/L Carbon Dioxide (22-30) mmol/L BUN (9-20) mg/dL Creatinine (0.8-1.5) mg/dL Glucose (75-100) mg/dL Calcium (8.4-10.2) mg/dL Iron 37 L (49-181) ug/dL Total Creatine Kinase (55-170) units/L CK-MB (CK-2) (0.0-4.0) ng/mL Troponin T (0.00-0.029) ng/mL NT-Pro-B Natriuret Pep (0-900) pg/mL Albumin (3.9-5) g/dL Triglycerides (2-149) mg/dL HDL Cholesterol (40-59) mg/dL Crossmatch 12/16/17 12/16/17 12/16/17 Range/Units 03:41 03:43 03:43 WBC 16.3 H (4.5-11.0) K/mm3 RBC 3.01 L (3.65-5.03) M/mm3 Hgb 7.5 L (11.8-15.2) gm/dl Hct 24.3 L D (35.5-45.6) % MCV 81 L (84-94) fl MCH 25 L (28-32) pg MCHC 31 L (32-34) % RDW 17.7 H (13.2-15.2) % Plt Count (140-440) K/mm3 Lymph % (Auto) 7.9 L (13.4-35.0) % [place] % (Auto) 7.8 H (0.0-7.3) % [place] # 1.3 H (0.0-0.8) K/mm3 Seg Neutrophils % 83.7 H (40.0-70.0) % Seg Neutrophils # 13.7 H (1.8-7.7) K/mm3 D-Dimer (0-234) ng/mlDDU POC ABG pH 7.211 L (7.35-7.45) POC ABG pCO2 45.3 H (35-45) POC ABG pO2 123 H (80-105) VBG pH (7.320-7.420) Potassium 5.3 H (3.6-5.0) mmol/L Carbon Dioxide 16 L (22-30) mmol/L BUN 76 H (9-20) mg/dL Creatinine 7.5 H (0.8-1.5) mg/dL Glucose 121 H (75-100) mg/dL Calcium 7.9 L (8.4-10.2) mg/dL Iron (49-181) ug/dL Total Creatine Kinase (55-170) units/L CK-MB (CK-2) (0.0-4.0) ng/mL Troponin T (0.00-0.029) ng/mL NT-Pro-B Natriuret Pep (0-900) pg/mL Albumin 3.6 L (3.9-5) g/dL Triglycerides (2-149) mg/dL HDL Cholesterol (40-59) mg/dL Crossmatch 12/16/17 Range/Units 10:11 WBC 17.6 H (4.5-11.0) K/mm3 RBC 3.16 L (3.65-5.03) M/mm3 Hgb 7.9 L (11.8-15.2) gm/dl Hct 24.5 L (35.5-45.6) % MCV 78 L (84-94) fl MCH 25 L (28-32) pg MCHC (32-34) % RDW 17.7 H (13.2-15.2) % Plt Count (140-440) K/mm3 Lymph % (Auto) 8.6 L (13.4-35.0) % [place] % (Auto) (0.0-7.3) % [place] # 1.3 H (0.0-0.8) K/mm3 Seg Neutrophils % 83.7 H (40.0-70.0) % Seg Neutrophils # 14.7 H (1.8-7.7) K/mm3 D-Dimer (0-234) ng/mlDDU POC ABG pH (7.35-7.45) POC ABG pCO2 (35-45) POC ABG pO2 (80-105) VBG pH (7.320-7.420) Potassium (3.6-5.0) mmol/L Carbon Dioxide (22-30) mmol/L BUN (9-20) mg/dL Creatinine (0.8-1.5) mg/dL Glucose (75-100) mg/dL Calcium (8.4-10.2) mg/dL Iron (49-181) ug/dL Total Creatine Kinase (55-170) units/L CK-MB (CK-2) (0.0-4.0) ng/mL Troponin T (0.00-0.029) ng/mL NT-Pro-B Natriuret Pep (0-900) pg/mL Albumin (3.9-5) g/dL Triglycerides (2-149) mg/dL HDL Cholesterol (40-59) mg/dL Crossmatch
--- NOTE | 2017-12-16 11:31 | Consultation ---
History of Present Illness Consult date: 12/16/17 Requesting physician: PAOLA JAY Reason for consult: hypoxemia History of present illness: 67 y/o male admitted with shortness of breath. Found to be in pulmonary edema and acute renal failure requiring emergent dialysis. Patient was also anemic and required blood transfusion. Patient was initially placed on bipap therapy and had some intitial improvement. During transfusion, per report patient became agitated and not tolerating bipap. Intubated by ED physician and placed on propofol. HD catheter placed last night and HD done emergently. Currently in unit, sedated on PEEP of 10 and FiO2 of 40%. No CXR done post HD. No family at bedside. Past History Past Medical History: hypertension, renal failure Past Surgical History: No surgical history Social history: no significant social history Family history: no significant family history Medications and Allergies Allergies Allergy/AdvReac Type Severity Reaction Status Date / Time No Known Allergies Allergy Verified 12/15/17 17:22 Active Meds: Active Medications Acetaminophen (Tylenol) 650 mg PO Q4H PRN PRN Reason: Pain MILD(1-3)/Fever >100.5/[place] Albuterol (Proventil) 2.5 mg IH Q4HRT PRN PRN Reason: Shortness Of Breath Last Admin: 12/16/17 01:10 Dose: 2.5 mg Albuterol/Ipratropium (Duoneb *Not For Prn Use*) 1 ampul IH TIDRT [facility] Famotidine (Pepcid) 20 mg IV QDAY NIYA Last Admin: 12/15/17 23:32 Dose: 20 mg Heparin Sodium (Porcine) (Heparin) 5,000 unit SUB-Q Q12HR NIYA Hydrophilic Ointment (Vaseline Lip Therapy) 1 applic TP Q2HR PRN PRN Reason: Dry Lips Sodium Chloride (Nacl 0.9% 1000 Ml) 1,000 mls @ 75 mls/hr IV DIRECT NIYA Piperacillin Sod/Tazobactam Sod (Zosyn/Ns 2.25 Gm/50ml) 2.25 gm in 50 mls @ 100 mls/hr IV Q8HR NIYA; Protocol Last Admin: 12/16/17 07:54 Dose: Not Given Propofol (Diprivan 10 Mg/Ml) 1,000 mg in 100 mls @ 2.313 mls/hr IV TITR NIYA; Protocol Last Admin: 12/16/17 08:38 Dose: 50 mcg/kg/min, 23.133 mls/hr Sodium Chloride (Nacl 0.9%) 100 mls @ 999 mls/hr IV MICHAELA PRN PRN Reason: Hypotension Insulin Human Lispro (Humalog) 0 unit SUB-Q ACHS [facility]; Protocol Last Admin: 12/16/17 07:55 Dose: Not Given Lorazepam (Ativan) 1 mg IV Q4H PRN PRN Reason: Agitation Last Admin: 12/15/17 22:21 Dose: 1 mg Methylprednisolone Sodium Succinate (Solu-Medrol) 125 mg IV Q8HR [facility] Last Admin: 12/16/17 07:54 Dose: Not Given Morphine Sulfate (Morphine) 2 mg IV Q4H PRN PRN Reason: Pain, Moderate (4-6) Multi-Ingred Cream/Lotion/Oil/Oint (Artificial Tears Ophth Oint) 1 applic OU Q4HR PRN PRN Reason: Dry Eye(s) Ondansetron HCl (Zofran) 4 mg IV Q8H PRN PRN Reason: Nausea And Vomiting Sodium Chloride (Sodium Chloride Flush Syringe 10 Ml) 10 ml IV BID [facility] Last Admin: 12/15/17 23:29 Dose: 10 ml Sodium Chloride (Sodium Chloride Flush Syringe 10 Ml) 10 ml IV PRN PRN PRN Reason: LINE FLUSH Review of Systems ROS unobtainable: due to endotracheal tube, due to mental status Physical Examination Vital signs: Vital Signs Pulse Ox 100 12/15/17 17:04 General appearance: no acute distress, other (sedated on Diprovan but will respond to tactile stimuli, does not follow commands) ENT: other (orally intubated and sedated, critically ill) Neck: supple Effort: normal Ascultation: Bilateral: diminished breath sounds, rales (right greater than left ) Percussion: Bilateral: not dull Cardiovascular: regular rate and rhythm Gastrointestinal: normoactive bowel sounds, soft, non-tender Integumentary: normal Extremities: no edema, pink and warm, pulses normal unable to assess Results - Laboratory Findings CBC and BMP: 12/16/17 10:11 12/16/17 03:43 ABG POC ABG pH 7.211 (7.35-7.45) L 12/16/17 03:41 POC ABG pCO2 45.3 (35-45) H 12/16/17 03:41 POC ABG pO2 123 (80-105) H 12/16/17 03:41 POC ABG HCO3 18.2 12/16/17 03:41 POC ABG Total CO2 20 12/16/17 03:41 POC ABG O2 Sat 98 12/16/17 03:41 PT/INR, D-dimer D-Dimer 1108.83 ng/mlDDU (0-234) H 12/15/17 17:16 Abnormal lab findings: Abnormal Labs 12/15/17 12/15/17 12/15/17 17:16 17:16 17:16 WBC 16.7 H RBC 2.12 L Hgb 4.9 L* Hct 16.0 L* MCV 76 L MCH 23 L MCHC 30 L RDW 17.3 H Plt Count 445 H Lymph % (Auto) 11.3 L [place] % (Auto) 7.4 H [place] # 1.2 H Seg Neutrophils % 80.2 H Seg Neutrophils # 13.4 H D-Dimer 1108.83 H POC ABG pH POC ABG pCO2 POC ABG pO2 VBG pH Potassium 5.1 H Carbon Dioxide 18 L BUN 76 H Creatinine 7.1 H Glucose 148 H Calcium 8.2 L Iron Total Creatine Kinase 736 H CK-MB (CK-2) 7.7 H Troponin T 0.067 H NT-Pro-B Natriuret Pep Albumin Triglycerides 206 H HDL Cholesterol 29 L Crossmatch 12/15/17 12/15/17 12/15/17 17:16 17:45 18:01 WBC RBC Hgb Hct MCV MCH MCHC RDW Plt Count Lymph % (Auto) [place] % (Auto) [place] # Seg Neutrophils % Seg Neutrophils # D-Dimer POC ABG pH POC ABG pCO2 POC ABG pO2 VBG pH 7.204 L Potassium Carbon Dioxide BUN Creatinine Glucose Calcium Iron Total Creatine Kinase CK-MB (CK-2) Troponin T NT-Pro-B Natriuret Pep 16784 H Albumin Triglycerides HDL Cholesterol Crossmatch See Detail 12/15/17 12/15/17 12/16/17 18:32 23:26 00:24 WBC RBC Hgb Hct MCV MCH MCHC RDW Plt Count Lymph % (Auto) [place] % (Auto) [place] # Seg Neutrophils % Seg Neutrophils # D-Dimer POC ABG pH 7.324 L 7.142 L POC ABG pCO2 33.6 L 50.4 H POC ABG pO2 110 H 107 H VBG pH Potassium Carbon Dioxide BUN Creatinine Glucose Calcium Iron 37 L Total Creatine Kinase CK-MB (CK-2) Troponin T NT-Pro-B Natriuret Pep Albumin Triglycerides HDL Cholesterol Crossmatch 12/16/17 12/16/17 12/16/17 03:41 03:43 03:43 WBC 16.3 H RBC 3.01 L Hgb 7.5 L Hct 24.3 L D MCV 81 L MCH 25 L MCHC 31 L RDW 17.7 H Plt Count Lymph % (Auto) 7.9 L [place] % (Auto) 7.8 H [place] # 1.3 H Seg Neutrophils % 83.7 H Seg Neutrophils # 13.7 H D-Dimer POC ABG pH 7.211 L POC ABG pCO2 45.3 H POC ABG pO2 123 H VBG pH Potassium 5.3 H Carbon Dioxide 16 L BUN 76 H Creatinine 7.5 H Glucose 121 H Calcium 7.9 L Iron Total Creatine Kinase CK-MB (CK-2) Troponin T NT-Pro-B Natriuret Pep Albumin 3.6 L Triglycerides HDL Cholesterol Crossmatch 12/16/17 10:11 WBC 17.6 H RBC 3.16 L Hgb 7.9 L Hct 24.5 L MCV 78 L MCH 25 L MCHC RDW 17.7 H Plt Count Lymph % (Auto) 8.6 L [place] % (Auto) [place] # 1.3 H Seg Neutrophils % 83.7 H Seg Neutrophils # 14.7 H D-Dimer POC ABG pH POC ABG pCO2 POC ABG pO2 VBG pH Potassium Carbon Dioxide BUN Creatinine Glucose Calcium Iron Total Creatine Kinase CK-MB (CK-2) Troponin T NT-Pro-B Natriuret Pep Albumin Triglycerides HDL Cholesterol Crossmatch - Diagnostic Findings Chest x-ray: image reviewed (From 12/15, bilateral alveolar filling, given history, most compatible with pulmonary edema, doubt alevolar hemorrhage or infection but they are on the differential) Assessment and Plan 67 y/o male with acute respiratory failure secondary to pulmonary edema, likely from acute renal failure and found to be profoundly anemic on admission. 1. Pulm- Continue increased levels of PEEP. Most recent PaO2 is at 56 with a sat of 97 on 40%. Continue PEEP for now. May have suffered from TRALI or TACO as his CXR did not show bilateral alveolar infiltrates on admission. There was only mild vascular congestion. Will monitor and continue supportive care. 2. Renal- HD per them, pending on review of CXR from today and tomorrow, may need more HD purely for volume removal to help wean ventilator if lasix cannot be given 3. Anemia-Etiology is unclear. Responded somewhat appropriate to 2 units transfused. Will check H/H every 6 hours for the next 24 hours. Transfuse for less than 7. Consider GI consult 4. Neuro- currently on Diprovan 20, continue Diprovan given renal failure. Could given some PRN fentanyl if pain is felt to be present 5. Will stop steroids, do not feel this is COPD exacerbation Overall prognosis is guarded. CCT 31 minutes.
[2017-12-16] MEDS: HEPARIN SUB-Q SCH ×2 (11:34→22:50)
[2017-12-16] MEDS: PEPCID IV SCH (11:34)
[2017-12-16 12:22] LABS: Amphetamine Screen,Urine PRESUMPTIVE NEGATIVE; Cannabinoid Screen,Urine PRESUMPTIVE NEGATIVE; Cocaine Screen,Urine PRESUMPTIVE NEGATIVE; Methadone Screen,Urine PRESUMPTIVE NEGATIVE; Opiate Screen,Urine PRESUMPTIVE NEGATIVE
[2017-12-16 12:25] LABS: Creatinine,Urine 81.7 mg/dL (0.1-20.0)
--- NOTE | 2017-12-16 12:32 | Consultation ---
History of Present Illness Consult date: 12/16/17 Consult reason: congestive heart failure History of present illness: 67 year old male presenting with a two-week history of shortness of breath. Patient's noticed to be hypoxemic and currently at the time of my evaluation is intubated on a mechanical ventilator. No foreign history is obtainable at this time Past History Past Medical History: hypertension, renal failure Past Surgical History: No surgical history Social history: no significant social history Family history: no significant family history Medications and Allergies Allergies Allergy/AdvReac Type Severity Reaction Status Date / Time No Known Allergies Allergy Verified 12/15/17 17:22 Active Meds: Active Medications Acetaminophen (Tylenol) 650 mg PO Q4H PRN PRN Reason: Pain MILD(1-3)/Fever >100.5/[place] Albuterol (Proventil) 2.5 mg IH Q4HRT PRN PRN Reason: Shortness Of Breath Last Admin: 12/16/17 01:10 Dose: 2.5 mg Albuterol/Ipratropium (Duoneb *Not For Prn Use*) 1 ampul IH TIDRT [facility] Famotidine (Pepcid) 20 mg IV QDAY NIYA Last Admin: 12/16/17 11:34 Dose: 20 mg Heparin Sodium (Porcine) (Heparin) 5,000 unit SUB-Q Q12HR NIYA Last Admin: 12/16/17 11:34 Dose: 5,000 unit Hydrophilic Ointment (Vaseline Lip Therapy) 1 applic TP Q2HR PRN PRN Reason: Dry Lips Sodium Chloride (Nacl 0.9% 1000 Ml) 1,000 mls @ 75 mls/hr IV DIRECT NIYA Piperacillin Sod/Tazobactam Sod (Zosyn/Ns 2.25 Gm/50ml) 2.25 gm in 50 mls @ 100 mls/hr IV Q8HR NIYA; Protocol Last Admin: 12/16/17 07:54 Dose: Not Given Propofol (Diprivan 10 Mg/Ml) 1,000 mg in 100 mls @ 2.313 mls/hr IV TITR NIYA; Protocol Last Admin: 12/16/17 08:38 Dose: 50 mcg/kg/min, 23.133 mls/hr Sodium Chloride (Nacl 0.9%) 100 mls @ 999 mls/hr IV MICHAELA PRN PRN Reason: Hypotension Insulin Human Lispro (Humalog) 0 unit SUB-Q ACHS [facility]; Protocol Last Admin: 12/16/17 07:55 Dose: Not Given Lorazepam (Ativan) 1 mg IV Q4H PRN PRN Reason: Agitation Last Admin: 12/15/17 22:21 Dose: 1 mg Morphine Sulfate (Morphine) 2 mg IV Q4H PRN PRN Reason: Pain, Moderate (4-6) Multi-Ingred Cream/Lotion/Oil/Oint (Artificial Tears Ophth Oint) 1 applic OU Q4HR PRN PRN Reason: Dry Eye(s) Ondansetron HCl (Zofran) 4 mg IV Q8H PRN PRN Reason: Nausea And Vomiting Sodium Chloride (Sodium Chloride Flush Syringe 10 Ml) 10 ml IV BID [facility] Last Admin: 12/15/17 23:29 Dose: 10 ml Sodium Chloride (Sodium Chloride Flush Syringe 10 Ml) 10 ml IV PRN PRN PRN Reason: LINE FLUSH Review of Systems ROS unobtainable: due to endotracheal tube Physical Examination Vital Signs Pulse Ox 100 12/15/17 17:04 General appearance: no acute distress HEENT: Positive: PERRL, Normocephaly, Mucus Membranes Moist. Negative: Jaundice Neck: Positive: neck supple, trachea midline, JVD/HJR Cardiac: Positive: Regular Rate, Regular Rhythm, S1/S2, S4, Laterally Displaced Lungs: Positive: clear to auscultation, No Wheeze, Rales, Rhonchi Neuro: Positive: Grossly Intact Abdomen: Positive: Unremarkable, Active Bowel Sounds Male genitourinary: Positive: normal Extremities: Present: edema Results 12/16/17 10:11 12/16/17 03:43 Cardiac Enzymes 12/15/17 12/16/17 Range/Units 17:16 03:43 AST 9 20 (5-40) units/L CK-MB (CK-2) 7.7 H (0.0-4.0) ng/mL Lipids 12/15/17 Range/Units 17:16 Triglycerides 206 H (2-149) mg/dL Cholesterol 163 (50-199) mg/dL HDL Cholesterol 29 L (40-59) mg/dL Cholesterol/HDL Ratio 5.62 % CBC 12/15/17 12/16/17 12/16/17 Range/Units 17:16 03:43 10:11 WBC 16.7 H 16.3 H 17.6 H (4.5-11.0) K/mm3 RBC 2.12 L 3.01 L 3.16 L (3.65-5.03) M/mm3 Hgb 4.9 L* 7.5 L 7.9 L (11.8-15.2) gm/dl Hct 16.0 L* 24.3 L D 24.5 L (35.5-45.6) % Plt Count 445 H 399 393 (140-440) K/mm3 Lymph # 1.9 1.3 1.5 (1.2-5.4) K/mm3 [place] # 1.2 H 1.3 H 1.3 H (0.0-0.8) K/mm3 Eos # 0.1 0.0 0.0 (0.0-0.4) K/mm3 Baso # 0.1 0.1 0.1 (0.0-0.1) K/mm3 Comprehensive Metabolic Panel 12/15/17 12/16/17 Range/Units 17:16 03:43 Sodium 138 140 (137-145) mmol/L Potassium 5.1 H 5.3 H (3.6-5.0) mmol/L Chloride 101.1 100.5 (98-107) mmol/L Carbon Dioxide 18 L 16 L (22-30) mmol/L BUN 76 H 76 H (9-20) mg/dL Creatinine 7.1 H 7.5 H (0.8-1.5) mg/dL Glucose 148 H 121 H (75-100) mg/dL Calcium 8.2 L 7.9 L (8.4-10.2) mg/dL AST 9 20 (5-40) units/L ALT 13 15 (7-56) units/L Alkaline Phosphatase 55 51 (35-129) units/L Total Protein 7.4 6.4 (6.3-8.2) g/dL Albumin 4.2 3.6 L (3.9-5) g/dL EKG interpretations - Telemetry EKG Rhythm: Sinus Rhythm Assessment and Plan 1. Congestive heart failure probably precipitated by end-stage renal disease 2. Bilateral interstitial infiltrates on CXR rule out comminuty acquired pneumonitis 2. End-stage renal disease 3. Respiratory failure currently intubated on mechanical ventilator 4. Essential hypertension Plan. Patient is currently intubated we shall start nitro paste for pre-and afterload reduction of the left ventricle. Fluid management would be aspirin hemodialysis initiated by nephrology. Echocardiogram will be done to assess global and regional LV function.
[2017-12-16 12:41] LABS: Benzodiazepines Screen,Urine PRESUMPTIVE POSITIVE
[2017-12-16 12:45] LABS: Bacteria,Urine 1+ /HPF (Negative); Bilirubin,Urine NEG (Negative); Blood,Urine MOD (Negative); Color,Urine Yellow (Yellow); Mucus,Urine 1+ /HPF; Urobilinogen,Urine < 2.0 mg/dL (<2.0)
[2017-12-16 12:49] LABS: Protein,Urine >500 mg/dL (Negative); WBC,Urine > 182.0 /HPF (0.0-6.0)
[2017-12-16 13:08] LABS: Hematocrit 22.8 % (35.5-45.6); Hemoglobin 7.4 gm/dl (11.8-15.2)
[2017-12-16] MEDS ORDERED: SIMPLE SYRUP FEEDTUBE PRN ×2 (17:32)
[2017-12-16] MEDS ORDERED: SODIUM BICARBONATE FEEDTUBE PRN (17:32)
[2017-12-16] MEDS ORDERED: PANCREAZE DR 10,500 UNIT FEEDTUBE PRN (17:32)
[2017-12-16 18:39] LABS: Hematocrit 20.6 % (35.5-45.6); Hemoglobin 6.6 gm/dl (11.8-15.2)
[2017-12-16] MEDS: SODIUM CHLORIDE FLUSH SYRINGE 10 ML IV SCH (22:50)
[2017-12-17 00:33] LABS: Hematocrit 20.8 % (35.5-45.6); Hemoglobin 6.9 gm/dl (11.8-15.2)
[2017-12-17] MEDS ORDERED: NACL 0.9% 500 ML 500 ML ONE (01:24)
--- NOTE | 2017-12-17 04:38 | XRay Report ---
FINAL REPORT PROCEDURE: XR CHEST 1V AP TECHNIQUE: Chest radiograph anteroposterior view. CPT 99393 HISTORY: follow up respiratory failure COMPARISON: 12/15/2017 FINDINGS: Heart: Normal. Mediastinum/Vessels: Normal. Lungs/Pleural space: Improved vascular congestion and lower lung atelectasis.. Bony thorax: No acute osseous abnormality. Life support devices: The endotracheal tube ends 4 centimeters above the tricia. A nasogastric tube ends below the hemidiaphragms.. IMPRESSION: Slightly improved vascular congestion and bilateral lower lung atelectasis..
[2017-12-17] MEDS: DUONEB *Not for PRN Use IH SCH ×3 (07:43→20:35)
[2017-12-17] MEDS ORDERED: NACL 0.9% 500 ML 500 ML IV ONE (08:00)
--- NOTE | 2017-12-17 08:11 | Progress Note ---
Assessment and Plan 67 y/o male with acute respiratory failure secondary to pulmonary edema, likely from acute renal failure and found to be profoundly anemic on admission. 1. Pulm- Continue increased levels of PEEP. PaO2 up to 90 now on 40% and sat is 100. needs more blood today and as stated on yesterday, unsure if patient suffered from TRALI or TACO as his CXR on admission was clear and did not show pulmonary edema until blood products were introduced. Spoke with Renal and given that we are giving blood they will dialyze again today. 2. Renal- HD again today. 3. Anemia-H/H continues to drop with distended abdomen. Stop tube feeds, place OG tube to suction and consult GI for possible GI bleed. Started BID PPI. Stopped heparin. 4. Neuro- currently on Diprovan 20, continue Diprovan given renal failure. Could given some PRN fentanyl if pain is felt to be present 5. Will stop steroids, do not feel this is COPD exacerbation Overall prognosis is guarded. CCT 31 minutes. Subjective Date of service: 12/17/17 Interval history: h/H dropped again to 6.6. No evidence of active bleeding. Abdomen is more distended today. No family at bedside. Remains on Diprovan. CXR done but unable to see the picture. Per report vascular congestion/edema has improved. Objective Vital Signs - 12hr 12/16/17 12/16/17 12/16/17 20:10 20:20 20:30 Temperature Pulse Rate 86 93 H 87 Pulse Rate [ Anterior Bilateral Throughout] Respiratory 22 22 22 Rate Respiratory Rate [Anterior Bilateral Throughout] Blood Pressure 102/78 102/78 102/78 O2 Sat by Pulse 100 100 98 Oximetry 12/16/17 12/16/17 12/16/17 20:40 20:50 21:00 Temperature Pulse Rate 88 85 87 Pulse Rate [ Anterior Bilateral Throughout] Respiratory 22 22 22 Rate Respiratory Rate [Anterior Bilateral Throughout] Blood Pressure 102/78 102/78 155/77 O2 Sat by Pulse 100 99 99 Oximetry 12/16/17 12/16/17 12/16/17 21:10 21:20 21:22 Temperature Pulse Rate 89 88 93 H Pulse Rate [ 86 Anterior Bilateral Throughout] Respiratory 22 22 Rate Respiratory 22 Rate [Anterior Bilateral Throughout] Blood Pressure 155/77 155/77 155/77 O2 Sat by Pulse 100 99 99 Oximetry 12/16/17 12/16/17 12/16/17 21:30 21:40 21:50 Temperature Pulse Rate 100 H 95 H 95 H Pulse Rate [ Anterior Bilateral Throughout] Respiratory 17 20 17 Rate Respiratory Rate [Anterior Bilateral Throughout] Blood Pressure 155/77 155/77 155/77 O2 Sat by Pulse 99 99 99 Oximetry 12/16/17 12/16/17 12/16/17 22:00 22:10 22:20 Temperature Pulse Rate 94 H 88 98 H Pulse Rate [ Anterior Bilateral Throughout] Respiratory 17 18 20 Rate Respiratory Rate [Anterior Bilateral Throughout] Blood Pressure 155/77 151/72 151/72 O2 Sat by Pulse 99 100 100 Oximetry 12/16/17 12/16/17 12/16/17 22:30 22:40 22:50 Temperature Pulse Rate 96 H 102 H 95 H Pulse Rate [ Anterior Bilateral Throughout] Respiratory 23 26 H 20 Rate Respiratory Rate [Anterior Bilateral Throughout] Blood Pressure 151/72 151/72 151/72 O2 Sat by Pulse 100 99 99 Oximetry 12/16/17 12/16/17 12/16/17 23:00 23:10 23:20 Temperature Pulse Rate 93 H 88 96 H Pulse Rate [ Anterior Bilateral Throughout] Respiratory 22 22 22 Rate Respiratory Rate [Anterior Bilateral Throughout] Blood Pressure 135/72 135/72 135/72 O2 Sat by Pulse 99 99 99 Oximetry 12/16/17 12/16/17 12/16/17 23:30 23:40 23:50 Temperature Pulse Rate 88 89 95 H Pulse Rate [ Anterior Bilateral Throughout] Respiratory 22 22 22 Rate Respiratory Rate [Anterior Bilateral Throughout] Blood Pressure 135/72 135/72 135/72 O2 Sat by Pulse 100 99 99 Oximetry 12/17/17 12/17/17 12/17/17 00:00 00:10 00:20 Temperature 99.5 F Pulse Rate 97 H 98 H 98 H Pulse Rate [ Anterior Bilateral Throughout] Respiratory 22 19 21 Rate Respiratory Rate [Anterior Bilateral Throughout] Blood Pressure 143/77 143/77 135/72 O2 Sat by Pulse 100 100 100 Oximetry 12/17/17 12/17/17 12/17/17 00:30 00:40 00:50 Temperature Pulse Rate 106 H 99 H 97 H Pulse Rate [ Anterior Bilateral Throughout] Respiratory 21 20 22 Rate Respiratory Rate [Anterior Bilateral Throughout] Blood Pressure 135/72 135/72 143/77 O2 Sat by Pulse 100 100 100 Oximetry 12/17/17 12/17/17 12/17/17 01:00 01:10 01:20 Temperature Pulse Rate 91 H 91 H 94 H Pulse Rate [ Anterior Bilateral Throughout] Respiratory 22 22 19 Rate Respiratory Rate [Anterior Bilateral Throughout] Blood Pressure 143/77 143/77 143/77 O2 Sat by Pulse 100 100 99 Oximetry 12/17/17 12/17/17 12/17/17 01:30 01:40 01:46 Temperature 99.8 F H Pulse Rate 95 H 90 87 Pulse Rate [ Anterior Bilateral Throughout] Respiratory 22 22 22 Rate Respiratory Rate [Anterior Bilateral Throughout] Blood Pressure 155/110 152/75 149/69 O2 Sat by Pulse 100 100 100 Oximetry 12/17/17 12/17/17 12/17/17 01:50 02:00 03:54 Temperature Pulse Rate 83 90 87 Pulse Rate [ Anterior Bilateral Throughout] Respiratory 22 22 Rate Respiratory Rate [Anterior Bilateral Throughout] Blood Pressure 149/69 149/69 142/83 O2 Sat by Pulse 100 100 100 Oximetry 12/17/17 12/17/17 12/17/17 07:09 07:44 07:52 Temperature Pulse Rate 95 H Pulse Rate [ 94 H 96 H Anterior Bilateral Throughout] Respiratory Rate Respiratory 18 23 Rate [Anterior Bilateral Throughout] Blood Pressure 78/64 O2 Sat by Pulse 100 Oximetry Constitutional: no acute distress, other (sedated on Diprovan but will respond to tactile stimuli, does not follow commands) ENT: other (orally intubated and sedated, critically ill) Neck: supple Effort: normal Ascultation: Bilateral: diminished breath sounds, rales (right greater than left ) Percussion: Bilateral: not dull Cardiovascular: regular rate and rhythm Gastrointestinal: normoactive bowel sounds, soft, non-tender Integumentary: normal Extremities: no edema, pink and warm, pulses normal Neurologic: unable to assess CBC and BMP: 12/17/17 00:11 12/16/17 03:43 ABG, PT/INR, D-dimer: ABG POC ABG pH 7.453 (7.35-7.45) H 12/17/17 04:03 POC ABG pCO2 33.6 (35-45) L 12/17/17 04:03 POC ABG pO2 90 (80-105) 12/17/17 04:03 POC ABG HCO3 23.5 12/17/17 04:03 POC ABG Total CO2 25 12/17/17 04:03 POC ABG O2 Sat 97 12/17/17 04:03 PT/INR, D-dimer D-Dimer 1108.83 ng/mlDDU (0-234) H 12/15/17 17:16 Abnormal lab findings: Abnormal Labs 12/15/17 12/15/17 12/15/17 17:16 17:16 17:16 WBC 16.7 H RBC 2.12 L Hgb 4.9 L* Hct 16.0 L* MCV 76 L MCH 23 L MCHC 30 L RDW 17.3 H Plt Count 445 H Lymph % (Auto) 11.3 L Page % (Auto) 7.4 H Page # 1.2 H Seg Neutrophils % 80.2 H Seg Neutrophils # 13.4 H D-Dimer 1108.83 H POC ABG pH POC ABG pCO2 POC ABG pO2 VBG pH Potassium 5.1 H Carbon Dioxide 18 L BUN 76 H Creatinine 7.1 H Glucose 148 H POC Glucose Calcium 8.2 L Iron Total Creatine Kinase 736 H CK-MB (CK-2) 7.7 H Troponin T 0.067 H NT-Pro-B Natriuret Pep Albumin Triglycerides 206 H HDL Cholesterol 29 L Urine WBC (Auto) Urine Creatinine Urine Total Protein Crossmatch 12/15/17 12/15/17 12/15/17 17:16 17:45 18:01 WBC RBC Hgb Hct MCV MCH MCHC RDW Plt Count Lymph % (Auto) Page % (Auto) Page # Seg Neutrophils % Seg Neutrophils # D-Dimer POC ABG pH POC ABG pCO2 POC ABG pO2 VBG pH 7.204 L Potassium Carbon Dioxide BUN Creatinine Glucose POC Glucose Calcium Iron Total Creatine Kinase CK-MB (CK-2) Troponin T NT-Pro-B Natriuret Pep 08057 H Albumin Triglycerides HDL Cholesterol Urine WBC (Auto) Urine Creatinine Urine Total Protein Crossmatch See Detail 12/15/17 12/15/17 12/16/17 18:32 23:26 00:24 WBC RBC Hgb Hct MCV MCH MCHC RDW Plt Count Lymph % (Auto) Page % (Auto) Page # Seg Neutrophils % Seg Neutrophils # D-Dimer POC ABG pH 7.324 L 7.142 L POC ABG pCO2 33.6 L 50.4 H POC ABG pO2 110 H 107 H VBG pH Potassium Carbon Dioxide BUN Creatinine Glucose POC Glucose Calcium Iron 37 L Total Creatine Kinase CK-MB (CK-2) Troponin T NT-Pro-B Natriuret Pep Albumin Triglycerides HDL Cholesterol Urine WBC (Auto) Urine Creatinine Urine Total Protein Crossmatch 12/16/17 12/16/17 12/16/17 03:41 03:43 03:43 WBC 16.3 H RBC 3.01 L Hgb 7.5 L Hct 24.3 L D MCV 81 L MCH 25 L MCHC 31 L RDW 17.7 H Plt Count Lymph % (Auto) 7.9 L Page % (Auto) 7.8 H Page # 1.3 H Seg Neutrophils % 83.7 H Seg Neutrophils # 13.7 H D-Dimer POC ABG pH 7.211 L POC ABG pCO2 45.3 H POC ABG pO2 123 H VBG pH Potassium 5.3 H Carbon Dioxide 16 L BUN 76 H Creatinine 7.5 H Glucose 121 H POC Glucose Calcium 7.9 L Iron Total Creatine Kinase CK-MB (CK-2) Troponin T NT-Pro-B Natriuret Pep Albumin 3.6 L Triglycerides HDL Cholesterol Urine WBC (Auto) Urine Creatinine Urine Total Protein Crossmatch 12/16/17 12/16/17 12/16/17 10:11 11:10 11:41 WBC 17.6 H RBC 3.16 L Hgb 7.9 L Hct 24.5 L MCV 78 L MCH 25 L MCHC RDW 17.7 H Plt Count Lymph % (Auto) 8.6 L Page % (Auto) Page # 1.3 H Seg Neutrophils % 83.7 H Seg Neutrophils # 14.7 H D-Dimer POC ABG pH 7.491 H POC ABG pCO2 POC ABG pO2 56 L VBG pH Potassium Carbon Dioxide BUN Creatinine Glucose POC Glucose 127 H Calcium Iron Total Creatine Kinase CK-MB (CK-2) Troponin T NT-Pro-B Natriuret Pep Albumin Triglycerides HDL Cholesterol Urine WBC (Auto) Urine Creatinine Urine Total Protein Crossmatch 12/16/17 12/16/17 12/16/17 12:05 12:05 12:15 WBC RBC Hgb 7.4 L Hct 22.8 L MCV MCH MCHC RDW Plt Count Lymph % (Auto) Page % (Auto) Page # Seg Neutrophils % Seg Neutrophils # D-Dimer POC ABG pH POC ABG pCO2 POC ABG pO2 VBG pH Potassium Carbon Dioxide BUN Creatinine Glucose POC Glucose Calcium Iron Total Creatine Kinase CK-MB (CK-2) Troponin T NT-Pro-B Natriuret Pep Albumin Triglycerides HDL Cholesterol Urine WBC (Auto) > 182.0 H Urine Creatinine 81.7 H Urine Total Protein 493 H Crossmatch 12/16/17 12/16/17 12/17/17 17:52 18:08 00:11 WBC RBC Hgb 6.6 L 6.9 L Hct 20.6 L 20.8 L MCV MCH MCHC RDW Plt Count Lymph % (Auto) Page % (Auto) Page # Seg Neutrophils % Seg Neutrophils # D-Dimer POC ABG pH POC ABG pCO2 POC ABG pO2 VBG pH Potassium Carbon Dioxide BUN Creatinine Glucose POC Glucose 127 H Calcium Iron Total Creatine Kinase CK-MB (CK-2) Troponin T NT-Pro-B Natriuret Pep Albumin Triglycerides HDL Cholesterol Urine WBC (Auto) Urine Creatinine Urine Total Protein Crossmatch 12/17/17 12/17/17 00:24 04:03 WBC RBC Hgb Hct MCV MCH MCHC RDW Plt Count Lymph % (Auto) Page % (Auto) Page # Seg Neutrophils % Seg Neutrophils # D-Dimer POC ABG pH 7.453 H POC ABG pCO2 33.6 L POC ABG pO2 VBG pH Potassium Carbon Dioxide BUN Creatinine Glucose POC Glucose 126 H Calcium Iron Total Creatine Kinase CK-MB (CK-2) Troponin T NT-Pro-B Natriuret Pep Albumin Triglycerides HDL Cholesterol Urine WBC (Auto) Urine Creatinine Urine Total Protein Crossmatch
--- NOTE | 2017-12-17 08:23 | Progress Note ---
Assessment and Plan - Patient Problems (1) Acute renal failure (ARF) Current Visit: Yes Status: Acute Plan to address problem: BALDO possibly 2/2 acute on chronic cardio renal syndrome, ischemic ATN in the setting of severe anemia and sepsis may contribute to BALDO. Given echogenic kidneys on renal US and significant proteinuria with urine protein/cr ratio of > 6g/g suspect underlying CKD. Pt with persistent anemia with Hb<7, awaiting 2 more PRBC transfusion. will arrange another HD today for volume control cont supportive care for BALDO/ATN avoid nephrotoxins, NSAIDs, IV contrast strict I/Os will monitor lytes renal parameters closely and make further recommendations. D/ w Dr Duarn (2) Hyperkalemia Current Visit: Yes Status: Acute Plan to address problem: expect to improve with HD. cont 2g K renal diet (3) Acute pulmonary edema Current Visit: Yes Status: Acute Plan to address problem: another HD with target UF 2L as tolerated (4) Bilateral pneumonia Current Visit: Yes Status: Acute Qualifiers: Lung location: lower lobe of lung Plan to address problem: empiric ABXs started, dose renally adjusted (5) Acute respiratory failure with hypoxia Current Visit: Yes Status: Acute Plan to address problem: vent management as per pulm/CCM (6) Anemia Current Visit: Yes Status: Acute Plan to address problem: awaiting additional 2PRBC transfusion. start EPO with HD. (7) Metabolic acidosis Current Visit: Yes Status: Acute Plan to address problem: combined respiratory/metabolic acidosis. improved s/p intubation and on HD Subjective Date of service: 12/17/17 Principal diagnosis: BALDO on CKD Interval history: Pt remains intubated, opening eyes on verbal stimuli, following simple commands. Objective - Vital Signs Vital signs: Vital Signs - 12hr 12/16/17 12/16/17 12/16/17 20:20 20:30 20:40 Temperature Pulse Rate 93 H 87 88 Pulse Rate [ Anterior Bilateral Throughout] Respiratory 22 22 22 Rate Respiratory Rate [Anterior Bilateral Throughout] Blood Pressure 102/78 102/78 102/78 O2 Sat by Pulse 100 98 100 Oximetry 12/16/17 12/16/17 12/16/17 20:50 21:00 21:10 Temperature Pulse Rate 85 87 89 Pulse Rate [ Anterior Bilateral Throughout] Respiratory 22 22 22 Rate Respiratory Rate [Anterior Bilateral Throughout] Blood Pressure 102/78 155/77 155/77 O2 Sat by Pulse 99 99 100 Oximetry 12/16/17 12/16/17 12/16/17 21:20 21:22 21:30 Temperature Pulse Rate 88 93 H 100 H Pulse Rate [ 86 Anterior Bilateral Throughout] Respiratory 22 17 Rate Respiratory 22 Rate [Anterior Bilateral Throughout] Blood Pressure 155/77 155/77 155/77 O2 Sat by Pulse 99 99 99 Oximetry 12/16/17 12/16/17 12/16/17 21:40 21:50 22:00 Temperature Pulse Rate 95 H 95 H 94 H Pulse Rate [ Anterior Bilateral Throughout] Respiratory 20 17 17 Rate Respiratory Rate [Anterior Bilateral Throughout] Blood Pressure 155/77 155/77 155/77 O2 Sat by Pulse 99 99 99 Oximetry 12/16/17 12/16/17 12/16/17 22:10 22:20 22:30 Temperature Pulse Rate 88 98 H 96 H Pulse Rate [ Anterior Bilateral Throughout] Respiratory 18 20 23 Rate Respiratory Rate [Anterior Bilateral Throughout] Blood Pressure 151/72 151/72 151/72 O2 Sat by Pulse 100 100 100 Oximetry 12/16/17 12/16/17 12/16/17 22:40 22:50 23:00 Temperature Pulse Rate 102 H 95 H 93 H Pulse Rate [ Anterior Bilateral Throughout] Respiratory 26 H 20 22 Rate Respiratory Rate [Anterior Bilateral Throughout] Blood Pressure 151/72 151/72 135/72 O2 Sat by Pulse 99 99 99 Oximetry 12/16/17 12/16/17 12/16/17 23:10 23:20 23:30 Temperature Pulse Rate 88 96 H 88 Pulse Rate [ Anterior Bilateral Throughout] Respiratory 22 22 22 Rate Respiratory Rate [Anterior Bilateral Throughout] Blood Pressure 135/72 135/72 135/72 O2 Sat by Pulse 99 99 100 Oximetry 12/16/17 12/16/17 12/17/17 23:40 23:50 00:00 Temperature 99.5 F Pulse Rate 89 95 H 97 H Pulse Rate [ Anterior Bilateral Throughout] Respiratory 22 22 22 Rate Respiratory Rate [Anterior Bilateral Throughout] Blood Pressure 135/72 135/72 143/77 O2 Sat by Pulse 99 99 100 Oximetry 12/17/17 12/17/17 12/17/17 00:10 00:20 00:30 Temperature Pulse Rate 98 H 98 H 106 H Pulse Rate [ Anterior Bilateral Throughout] Respiratory 19 21 21 Rate Respiratory Rate [Anterior Bilateral Throughout] Blood Pressure 143/77 135/72 135/72 O2 Sat by Pulse 100 100 100 Oximetry 12/17/17 12/17/17 12/17/17 00:40 00:50 01:00 Temperature Pulse Rate 99 H 97 H 91 H Pulse Rate [ Anterior Bilateral Throughout] Respiratory 20 22 22 Rate Respiratory Rate [Anterior Bilateral Throughout] Blood Pressure 135/72 143/77 143/77 O2 Sat by Pulse 100 100 100 Oximetry 12/17/17 12/17/17 12/17/17 01:10 01:20 01:30 Temperature Pulse Rate 91 H 94 H 95 H Pulse Rate [ Anterior Bilateral Throughout] Respiratory 22 19 22 Rate Respiratory Rate [Anterior Bilateral Throughout] Blood Pressure 143/77 143/77 155/110 O2 Sat by Pulse 100 99 100 Oximetry 12/17/17 12/17/17 12/17/17 01:40 01:46 01:50 Temperature 99.8 F H Pulse Rate 90 87 83 Pulse Rate [ Anterior Bilateral Throughout] Respiratory 22 22 22 Rate Respiratory Rate [Anterior Bilateral Throughout] Blood Pressure 152/75 149/69 149/69 O2 Sat by Pulse 100 100 100 Oximetry 12/17/17 12/17/17 12/17/17 02:00 03:54 07:09 Temperature Pulse Rate 90 87 95 H Pulse Rate [ Anterior Bilateral Throughout] Respiratory 22 Rate Respiratory Rate [Anterior Bilateral Throughout] Blood Pressure 149/69 142/83 78/64 O2 Sat by Pulse 100 100 100 Oximetry 12/17/17 12/17/17 07:44 07:52 Temperature Pulse Rate Pulse Rate [ 94 H 96 H Anterior Bilateral Throughout] Respiratory Rate Respiratory 18 23 Rate [Anterior Bilateral Throughout] Blood Pressure O2 Sat by Pulse Oximetry - General Appearance General appearance: well-developed, appears stated age, intubated EENT: ATNC, PERRL, mucous membranes moist Neck: no JVD Respiratory: Present: Decreased Breath Sounds Cardiology: regular, S1S2 Gastrointestinal: normoactive bowel sounds, distended Integumentary: no rash, other (no edema ) Neurologic: other (intubated ) - Lab 12/17/17 00:11 12/16/17 03:43 Most recent lab results Calcium 7.9 mg/dL (8.4-10.2) L 12/16/17 03:43 Urine Creatinine 81.7 mg/dL (0.1-20.0) H 12/16/17 12:05 Urine Sodium 62 mmol/L 12/16/17 12:05 Urine Total Protein 493 mg/dL (5-11.8) H 12/16/17 12:05
[2017-12-17 08:25] LABS: Basophils # (Auto) 0.1 K/mm3 (0.0-0.1); Basophils % (Auto) 0.5 % (0.0-1.8); Eosinophils # (Auto) 0.1 K/mm3 (0.0-0.4); Eosinophils % (Auto) 1.1 % (0.0-4.3); Hematocrit 24.3 % (35.5-45.6); Hemoglobin 8.1 gm/dl (11.8-15.2); Lymphocytes # (Auto) 1.6 K/mm3 (1.2-5.4); Lymphocytes % (Auto) 11.9 % (13.4-35.0); Mean Corpuscular HGB Conc 33 % (32-34); Mean Corpuscular Hemoglobin 26 pg (28-32); Mean Corpuscular Volume 79 fl (84-94); Monocytes # (Auto) 1.1 K/mm3 (0.0-0.8); Monocytes % (Auto) 8.6 % (0.0-7.3); Platelet Count 353 K/mm3 (140-440); Red Blood Count 3.06 M/mm3 (3.65-5.03); Red Cell Distribution Width 18.6 % (13.2-15.2)
[2017-12-17] MEDS: HumaLOG SUB-Q SCH ×5 (08:30→17:40)
[2017-12-17 08:33] LABS: Calcium 8.7 mg/dL (8.4-10.2)
[2017-12-17] MEDS: ZOSYN/NS 2.25 GM/50ML 2.25 GM/50 ML BAG IV SCH ×3 (09:46→22:39)
--- NOTE | 2017-12-17 09:55 | Progress Note ---
Assessment and Plan 1. Congestive heart failure probably precipitated by end-stage renal disease 2. Bilateral interstitial infiltrates on CXR rule out comminuty acquired pneumonitis 3. End-stage renal disease 4. Respiratory failure currently intubated on mechanical ventilator 5. Essential hypertension 6. Anemia Plan. Patient is currently intubated. Nitro paste for pre-and afterload reduction of the left ventricle. Fluid management would be as per hemodialysis initiated by Nephrology. Echocardiogram will be done to assess global and regional LV function. Subjective Date of service: 12/17/17 Principal diagnosis: BALDO on CKD Interval history: Intubated but alert responds to verbal commands Objective Vital Signs Temp Pulse Pulse Pulse Resp Resp BP 12/17/17 09:30 92 H 17 172/76 12/17/17 09:15 89 21 162/84 12/17/17 09:10 98.6 F 93 H 16 162/84 12/17/17 09:00 89 20 156/84 12/17/17 08:46 85 20 160/84 12/17/17 08:37 98.5 F 94 H 20 156/84 12/17/17 08:30 89 22 156/84 12/17/17 08:20 96 H 21 171/88 12/17/17 08:10 95 H 25 H 184/91 12/17/17 08:00 90 22 243/171 12/17/17 07:52 96 H 23 12/17/17 07:50 90 17 243/171 12/17/17 07:44 94 H 18 12/17/17 07:40 91 H 15 157/64 12/17/17 07:30 95 H 15 157/64 12/17/17 07:20 97 H 20 157/64 12/17/17 07:10 99 H 19 78/64 12/17/17 07:09 95 H 78/64 12/17/17 07:00 90 21 173/78 12/17/17 06:50 95 H 23 159/76 12/17/17 06:40 95 H 18 162/69 12/17/17 06:30 95 H 22 162/69 12/17/17 06:20 91 H 22 167/64 12/17/17 06:10 86 22 177/71 12/17/17 06:00 85 22 177/71 12/17/17 05:50 95 H 21 164/72 09/16/18 05:40 87 22 180/50 18 05:30 92 H 15 180/50 12/17/17 05:20 90 21 167/68 12/17/17 05:10 91 H 19 178/70 12/17/17 05:00 92 H 17 178/70 12/17/17 04:50 92 H 18 169/65 12/17/17 04:40 92 H 22 180/102 12/17/17 04:30 86 22 180/102 12/17/17 04:20 84 22 161/83 12/17/17 04:10 85 22 142/83 12/17/17 04:05 99.6 F 12/17/17 04:00 99.5 F 80 95 H 21 142/83 12/17/17 03:54 87 142/83 12/17/17 03:50 87 22 158/74 12/17/17 03:40 88 22 154/73 18 03:30 96 H 22 154/73 12/17/17 03:20 93 H 20 148/77 12/17/17 03:10 93 H 22 152/68 18 03:05 99.5 F 12/17/17 03:00 90 21 152/68 12/17/17 02:50 94 H 22 152/72 12/17/17 02:40 88 22 144/70 12/17/17 02:35 997 F H 12/17/17 02:30 97 H 21 144/70 12/17/17 02:20 102 H 19 149/69 12/17/17 02:10 85 22 155/78 12/17/17 02:05 99.5 F 12/17/17 02:00 90 22 149/69 12/17/17 01:50 83 22 149/69 12/17/17 01:46 99.8 F H 87 22 149/69 12/17/17 01:40 90 22 152/75 12/17/17 01:30 95 H 22 155/110 12/17/17 01:24 98.5 F 93 H 19 151/76 18 01:20 94 H 19 143/77 18 01:10 91 H 22 143/77 12/17/17 01:00 91 H 22 143/77 12/17/17 00:50 97 H 22 143/77 09/16/18 00:40 99 H 20 135/72 18 00:30 106 H 21 135/72 18 00:20 98 H 21 135/72 18 00:10 98 H 19 143/77 18 00:00 99.5 F 97 H 89 22 143/77 18 23:50 95 H 22 135/72 18 23:40 89 22 135/72 18 23:30 88 22 135/72 18 23:20 96 H 22 135/72 18 23:10 88 22 135/72 18 23:00 93 H 22 135/72 18 22:50 95 H 20 151/72 18 22:40 102 H 26 H 151/72 18 22:30 96 H 23 151/72 18 22:20 98 H 20 151/72 18 22:10 88 18 151/72 18 22:00 94 H 17 155/77 18 21:50 95 H 17 155/77 18 21:40 95 H 20 155/77 18 21:30 100 H 17 155/77 18 21:22 93 H 86 22 155/77 18 21:20 88 22 155/77 18 21:10 89 22 155/77 18 21:00 87 22 155/77 12/16/17 20:50 85 22 102/78 18 20:40 88 22 102/78 18 20:30 87 22 102/78 18 20:20 93 H 22 102/78 18 20:10 86 22 102/78 12/16/17 20:00 99.5 F 87 84 22 102/78 18 19:50 85 22 124/70 18 19:40 88 22 124/70 18 19:34 89 22 124/70 18 19:30 88 22 124/70 18 19:20 95 H 22 124/70 18 19:16 105 H 17 124/70 09/15/18 19:10 88 22 124/70 /15/18 19:03 85 22 124/70 //18 19:00 82 22 124/70 /15/18 18:50 90 21 137/75 /15/18 18:40 86 22 137/75 /15/18 18:30 87 20 137/75 //18 18:20 86 18 137/75 /18 18:10 87 22 137/75 /18 18:00 81 81 22 137/75 /15/18 17:50 87 18 149/72 18 17:40 85 22 149/72 18 17:30 83 22 149/72 18 17:20 86 22 149/72 18 17:10 84 22 149/72 18 17:00 85 22 149/72 18 16:50 89 22 135/70 18 16:40 87 22 135/70 18 16:38 83 138/72 18 16:30 88 23 135/70 18 16:20 90 23 135/70 18 16:10 86 22 135/70 18 16:00 99.6 F 90 90 22 135/70 18 15:50 99 H 21 141/71 18 15:40 89 22 141/71 15/18 15:30 84 22 141/71 18 15:20 85 22 141/71 18 15:10 79 22 141/71 18 15:00 83 22 135/70 18 14:50 82 22 141/71 18 14:40 81 22 141/71 18 14:30 90 21 141/71 18 14:20 80 21 141/71 18 14:10 85 22 141/71 18 14:00 79 79 22 141/71 18 13:50 82 22 125/73 1518 13:40 80 22 125/73 1518 13:30 84 22 125/73 09/15/18 13:20 89 22 125/73 /15/18 13:10 87 21 125/73 /15/18 13:00 88 23 125/73 15/18 12:50 85 21 142/79 12/16/18 12:40 92 H 22 142/79 15/18 12:30 90 20 142/79 15/18 12:20 98 H 27 H 142/79 15/18 12:10 88 22 142/79 18 12:00 98.4 F 89 89 22 142/79 12/16/18 11:50 90 22 134/76 18 11:40 91 H 23 134/76 12/16/18 11:30 94 H 26 H 134/76 18 11:28 93 H 23 18 11:20 92 H 22 140/77 18 11:19 93 H 22 18 11:10 99 H 19 140/77 18 11:00 86 22 140/77 12/16/17 10:50 88 22 18 10:47 87 22 134/76 18 10:00 87 22 Pulse Ox 12/17/17 09:30 100 12/17/17 09:15 100 12/17/17 09:10 100 12/17/17 09:00 99 12/17/17 08:46 99 12/17/17 08:37 99 12/17/17 08:30 99 18 08:20 98 12/17/17 08:10 99 12/17/17 08:00 99 12/17/17 07:52 12/17/17 07:50 100 12/17/17 07:44 12/17/17 07:40 100 18 07:30 100 18 07:20 99 12/17/17 07:10 99 12/17/17 07:09 100 12/17/17 07:00 99 12/17/17 06:50 100 18 06:40 100 18 06:30 99 18 06:20 99 12/17/17 06:10 100 12/17/17 06:00 100 12/17/17 05:50 100 12/17/17 05:40 100 12/17/17 05:30 100 12/17/17 05:20 100 12/17/17 05:10 100 12/17/17 05:00 99 12/17/17 04:50 98 12/17/17 04:40 100 12/17/17 04:30 99 12/17/17 04:20 99 12/17/17 04:10 100 12/17/17 04:05 12/17/17 04:00 100 12/17/17 03:54 100 12/17/17 03:50 100 12/17/17 03:40 100 12/17/17 03:30 99 12/17/17 03:20 100 12/17/17 03:10 100 12/17/17 03:05 12/17/17 03:00 100 12/17/17 02:50 99 12/17/17 02:40 100 12/17/17 02:35 12/17/17 02:30 100 12/17/17 02:20 98 12/17/17 02:10 99 12/17/17 02:05 12/17/17 02:00 100 12/17/17 01:50 100 12/17/17 01:46 100 12/17/17 01:40 100 12/17/17 01:30 100 12/17/17 01:24 99 12/17/17 01:20 99 12/17/17 01:10 100 12/17/17 01:00 100 12/17/17 00:50 100 12/17/17 00:40 100 12/17/17 00:30 100 12/17/17 00:20 100 12/17/17 00:10 100 12/17/17 00:00 99 12/16/17 23:50 99 12/16/17 23:40 99 12/16/17 23:30 100 12/16/17 23:20 99 12/16/17 23:10 99 12/16/17 23:00 99 12/16/17 22:50 99 12/16/17 22:40 99 12/16/17 22:30 100 12/16/17 22:20 100 12/16/17 22:10 100 12/16/17 22:00 99 12/16/17 21:50 99 12/16/17 21:40 99 12/16/17 21:30 99 09/15/18 21:22 99 12/16/17 21:20 99 18 21:10 100 12/16/17 21:00 99 18 20:50 99 18 20:40 100 18 20:30 98 18 20:20 100 12/16/17 20:10 100 18 20:00 99 12/16/17 19:50 100 18 19:40 100 12/16/17 19:34 100 12/16/17 19:30 100 12/16/17 19:20 100 12/16/17 19:16 99 12/16/17 19:10 100 12/16/17 19:03 99 12/16/17 19:00 98 12/16/17 18:50 99 12/16/17 18:40 99 12/16/17 18:30 100 12/16/17 18:20 98 12/16/17 18:10 99 12/16/17 18:00 99 12/16/17 17:50 98 12/16/17 17:40 100 12/16/17 17:30 99 12/16/17 17:20 100 12/16/17 17:10 99 12/16/17 17:00 99 12/16/17 16:50 99 12/16/17 16:40 100 12/16/17 16:38 100 18 16:30 100 12/16/17 16:20 100 18 16:10 99 12/16/17 16:00 100 18 15:50 99 18 15:40 98 18 15:30 100 18 15:20 100 18 15:10 100 18 15:00 100 18 14:50 100 18 14:40 100 18 14:30 98 12/16/17 14:20 100 12/16/17 14:10 100 12/16/17 14:00 100 12/16/17 13:50 100 18 13:40 99 18 13:30 99 12/16/17 13:20 99 12/16/17 13:10 99 12/16/17 13:00 98 12/16/17 12:50 100 12/16/17 12:40 99 12/16/17 12:30 99 12/16/17 12:20 97 12/16/17 12:10 100 12/16/17 12:00 99 12/16/17 11:50 100 12/16/17 11:40 96 12/16/17 11:30 98 12/16/17 11:28 12/16/17 11:20 99 12/16/17 11:19 12/16/17 11:10 99 12/16/17 11:00 100 12/16/17 10:50 100 12/16/17 10:47 100 12/16/17 10:00 98 - Physical Examination General: Other (intubtaed on mechanical ventilator) HEENT: Positive: PERRL, Normocephaly, Mucus Membranes Moist. Negative: Jaundice Neck: Positive: neck supple, trachea midline, JVD/HJR Cardiac: Positive: Reg Rate and Rhythm, S1/S2, S3, PMI, Laterally Displaced Lungs: Positive: clear to auscultation, No Wheeze, Rales, Rhonchi Neuro: Positive: Grossly Intact Abdomen: Positive: Unremarkable, Active Bowel Sounds Extremities: Present: edema - Labs and Meds CBC 12/16/17 12/16/17 12/16/17 Range/Units 10:11 12:15 18:08 WBC 17.6 H (4.5-11.0) K/mm3 RBC 3.16 L (3.65-5.03) M/mm3 Hgb 7.9 L 7.4 L 6.6 L (11.8-15.2) gm/dl Hct 24.5 L 22.8 L 20.6 L (35.5-45.6) % Plt Count 393 (140-440) K/mm3 Lymph # 1.5 (1.2-5.4) K/mm3 [place] # 1.3 H (0.0-0.8) K/mm3 Eos # 0.0 (0.0-0.4) K/mm3 Baso # 0.1 (0.0-0.1) K/mm3 12/17/17 12/17/17 Range/Units 00:11 07:54 WBC 13.1 H (4.5-11.0) K/mm3 RBC 3.06 L (3.65-5.03) M/mm3 Hgb 6.9 L 8.1 L (11.8-15.2) gm/dl Hct 20.8 L 24.3 L (35.5-45.6) % Plt Count 353 (140-440) K/mm3 Lymph # 1.6 (1.2-5.4) K/mm3 [place] # 1.1 H (0.0-0.8) K/mm3 Eos # 0.1 (0.0-0.4) K/mm3 Baso # 0.1 (0.0-0.1) K/mm3 Comprehensive Metabolic Panel 12/17/17 Range/Units 07:54 Sodium 142 (137-145) mmol/L Potassium 3.4 L D (3.6-5.0) mmol/L Chloride 99.8 (98-107) mmol/L Carbon Dioxide 21 L (22-30) mmol/L BUN 65 H (9-20) mg/dL Creatinine 6.4 H (0.8-1.5) mg/dL Glucose 133 H (75-100) mg/dL Calcium 8.7 (8.4-10.2) mg/dL - Imaging and Cardiology EKG: report reviewed (Sinus Tachycardia) - Telemetry EKG Rhythm: Sinus Rhythm
[2017-12-17] MEDS ORDERED: PANCREAZE DR 10,500 UNIT FEEDTUBE PRN (09:59)
[2017-12-17] MEDS ORDERED: SIMPLE SYRUP FEEDTUBE PRN ×2 (09:59)
[2017-12-17] MEDS ORDERED: SODIUM BICARBONATE FEEDTUBE PRN (09:59)
[2017-12-17] MEDS: PROTONIX IV SCH ×2 (10:03→22:39)
[2017-12-17] MEDS: SODIUM CHLORIDE FLUSH SYRINGE 10 ML IV SCH ×2 (10:03→22:40)
--- NOTE | 2017-12-17 12:24 | Progress Note ---
Assessment and Plan Assessment and plan: Acute respiratory failure with hypoxia -s/p intubation, on MV -Off steroids -ABG improved -pulmonology following Sepsis likely from PNA -cont IV abx -blood cultures negative so far Bilateral pneumonia -on IV Zosyn and Vanco -blood and sputum culture neg BALDO 2/2 acute on chronic cardio renal syndrome, ischemic ATN in the setting of severe anemia and sepsis -H/O CKD suspected -on HD s/p vascath placement -Neprology following Severe anemia, probably sec to CKD/ESRD -s/p blood transfusion with 2 units of PRBC -Patient is to receive additional 2u of PRBC today -will do CT abdomen and pelvis to assess for acute bleed -We will monitor posttransfusion H&H Acute exacerbation of CHF (congestive heart failure), suspected -2d ECHO report pending -cont volume removal by increased Ultrafiltration Elevated troponin probably secondary to demand ischemia -Echocardiogram report pending -Cardiology following DVT prophylaxis on Heparin and GI prophylaxis on Protonix Disposition: Patient remains in critical condition, continue current management History Interval history: pt able to follow commands but still intubated. Per his nurse, his H/H trended down again overnight and he is receiving additional 2 units of packed red blood cells Hospitalist Physical - Constitutional Vitals: Temp Pulse Resp BP Pulse Ox 99.1 F 92 H 22 153/83 99 12/17/17 10:13 12/17/17 11:04 12/17/17 10:13 12/17/17 11:04 12/17/17 11:04 General appearance: Present: no acute distress - EENT Eyes: Present: PERRL, EOM intact ENT: hearing intact, other (the patient is intubated and sedated but awake) - Neck Neck: Present: supple, normal ROM - Respiratory Respiratory effort: normal Respiratory: right: rales, left: CTA - Cardiovascular Rhythm: regular Heart Sounds: Present: S1 & S2 - Extremities Extremities: pulses symmetrical, No edema - Abdominal General gastrointestinal: soft, non-tender, distended, normal bowel sounds - Neurologic Neurologic: other (the patient is intubated and sedated but awake) Results - Labs CBC & Chem 7: 12/17/17 07:54 12/17/17 07:54 Labs: Laboratory Last Values WBC 13.1 K/mm3 (4.5-11.0) H 12/17/17 07:54 RBC 3.06 M/mm3 (3.65-5.03) L 12/17/17 07:54 Hgb 8.1 gm/dl (11.8-15.2) L 12/17/17 07:54 Hct 24.3 % (35.5-45.6) L 12/17/17 07:54 MCV 79 fl (84-94) L 12/17/17 07:54 MCH 26 pg (28-32) L 12/17/17 07:54 MCHC 33 % (32-34) 12/17/17 07:54 RDW 18.6 % (13.2-15.2) H 12/17/17 07:54 Plt Count 353 K/mm3 (140-440) 12/17/17 07:54 Lymph % (Auto) 11.9 % (13.4-35.0) L 12/17/17 07:54 [place] % (Auto) 8.6 % (0.0-7.3) H 12/17/17 07:54 Eos % (Auto) 1.1 % (0.0-4.3) 12/17/17 07:54 Baso % (Auto) 0.5 % (0.0-1.8) 12/17/17 07:54 Lymph # 1.6 K/mm3 (1.2-5.4) 12/17/17 07:54 [place] # 1.1 K/mm3 (0.0-0.8) H 12/17/17 07:54 Eos # 0.1 K/mm3 (0.0-0.4) 12/17/17 07:54 Baso # 0.1 K/mm3 (0.0-0.1) 12/17/17 07:54 Seg Neutrophils % 77.9 % (40.0-70.0) H 12/17/17 07:54 Seg Neutrophils # 10.2 K/mm3 (1.8-7.7) H 12/17/17 07:54 D-Dimer 1108.83 ng/mlDDU (0-234) H 12/15/17 17:16 POC ABG pH 7.453 (7.35-7.45) H 12/17/17 04:03 POC ABG pCO2 33.6 (35-45) L 12/17/17 04:03 POC ABG pO2 90 (80-105) 12/17/17 04:03 POC ABG HCO3 23.5 12/17/17 04:03 POC ABG Total CO2 25 12/17/17 04:03 POC ABG O2 Sat 97 12/17/17 04:03 POC ABG Base Excess 0 12/17/17 04:03 VBG pH 7.204 (7.320-7.420) L 12/15/17 18:01 FiO2 40 % 12/17/17 04:03 Sodium 142 mmol/L (137-145) 12/17/17 07:54 Potassium 3.4 mmol/L (3.6-5.0) L D 12/17/17 07:54 Chloride 99.8 mmol/L (98-107) 12/17/17 07:54 Carbon Dioxide 21 mmol/L (22-30) L 12/17/17 07:54 Anion Gap 25 mmol/L 12/17/17 07:54 BUN 65 mg/dL (9-20) H 12/17/17 07:54 Creatinine 6.4 mg/dL (0.8-1.5) H 12/17/17 07:54 Estimated GFR 9 ml/min 12/17/17 07:54 BUN/Creatinine Ratio 10 % 12/17/17 07:54 Glucose 133 mg/dL (75-100) H 12/17/17 07:54 POC Glucose 119 (70-105) H 12/17/17 11:55 Hemoglobin A1c < 4.2 % (4-6) 12/15/17 17:16 Lactic Acid 1.40 mmol/L (0.7-2.0) 12/15/17 17:16 Calcium 8.7 mg/dL (8.4-10.2) 12/17/17 07:54 Iron 37 ug/dL (49-181) L 12/16/17 00:24 TIBC 416 mcg/dL (250-450) 12/16/17 00:24 Ferritin 16.1 ng/mL (13.0-400.0) 12/16/17 00:24 Total Bilirubin 0.20 mg/dL (0.1-1.2) 12/16/17 03:43 AST 20 units/L (5-40) 12/16/17 03:43 ALT 15 units/L (7-56) 12/16/17 03:43 Alkaline Phosphatase 51 units/L (35-129) 12/16/17 03:43 Total Creatine Kinase 736 units/L (55-170) H 12/15/17 17:16 CK-MB (CK-2) 7.7 ng/mL (0.0-4.0) H 12/15/17 17:16 CK-MB (CK-2) Rel Index 1.0 (0-4) 12/15/17 17:16 Troponin T 0.067 ng/mL (0.00-0.029) H 12/15/17 17:16 NT-Pro-B Natriuret Pep 06296 pg/mL (0-900) H 12/15/17 17:16 Total Protein 6.4 g/dL (6.3-8.2) 12/16/17 03:43 Albumin 3.6 g/dL (3.9-5) L 12/16/17 03:43 Albumin/Globulin Ratio 1.3 % 12/16/17 03:43 Triglycerides 206 mg/dL (2-149) H 12/15/17 17:16 Cholesterol 163 mg/dL (50-199) 12/15/17 17:16 LDL Cholesterol Direct 102 mg/dL (50-130) 12/15/17 17:16 HDL Cholesterol 29 mg/dL (40-59) L 12/15/17 17:16 Cholesterol/HDL Ratio 5.62 % 12/15/17 17:16 Vitamin B12 221.6 pg/mL (211-911) 12/16/17 00:24 Folate 14.63 ng/mL (7.3-26.0) 12/16/17 00:24 Urine Color Yellow (Yellow) 12/16/17 12:05 Urine Turbidity Cloudy (Clear) 12/16/17 12:05 Urine pH 5.0 (5.0-7.0) 12/16/17 12:05 Ur Specific [place] 1.012 (1.003-1.030) 12/16/17 12:05 Urine Protein >500 mg/dL (Negative) 12/16/17 12:05 Urine Glucose (UA) 50 mg/dL (Negative) 12/16/17 12:05 Urine Ketones Neg mg/dL (Negative) 12/16/17 12:05 Urine Blood Mod (Negative) 12/16/17 12:05 Urine Nitrite Neg (Negative) 12/16/17 12:05 Urine Bilirubin Neg (Negative) 12/16/17 12:05 Urine Urobilinogen < 2.0 mg/dL (<2.0) 12/16/17 12:05 Ur Leukocyte Esterase Lg (Negative) 12/16/17 12:05 Urine WBC (Auto) > 182.0 /HPF (0.0-6.0) H 12/16/17 12:05 Urine RBC (Auto) 30.0 /HPF (0.0-6.0) 12/16/17 12:05 U Epithel Cells (Auto) 1.0 /HPF (0-13.0) 12/16/17 12:05 Urine Bacteria (Auto) 1+ /HPF (Negative) 12/16/17 12:05 Urine WBC Clumps 3+ /HPF 12/16/17 12:05 Urine Mucus 1+ /HPF 12/16/17 12:05 Urine Creatinine 81.7 mg/dL (0.1-20.0) H 12/16/17 12:05 Urine Sodium 62 mmol/L 12/16/17 12:05 Urine Total Protein 493 mg/dL (5-11.8) H 12/16/17 12:05 Urine Opiates Screen Presumptive negative 12/16/17 12:05 Urine Methadone Screen Presumptive negative 12/16/17 12:05 Ur Barbiturates Screen Presumptive negative 12/16/17 12:05 Ur Phencyclidine Scrn Presumptive negative 12/16/17 12:05 Ur Amphetamines Screen Presumptive negative 12/16/17 12:05 U Benzodiazepines Scrn Presumptive positive 12/16/17 12:05 Urine Cocaine Screen Presumptive negative 12/16/17 12:05 U Marijuana (THC) Screen Presumptive negative 12/16/17 12:05 Drugs of Abuse Note Disclamer 12/16/17 12:05 Hep Bs Antigen Non-reactive (Negative) 12/16/17 04:47 Hep B Core IgM Ab Non-reactive (NonReactive) 12/16/17 04:47 Hepatitis C Antibody Non-reactive (NonReactive) 12/16/17 04:47 Blood Type A POSITIVE 12/15/17 17:45 Antibody Screen Negative 12/15/17 17:45 Crossmatch See Detail 12/15/17 17:45
[2017-12-17 13:27] LABS: Hematocrit 27.9 % (35.5-45.6); Hemoglobin 9.3 gm/dl (11.8-15.2)
--- NOTE | 2017-12-17 13:36 | Cat Scan Report ---
FINAL REPORT EXAM: CT ABDOMEN PELVIS WO CON HISTORY: ACUTE ANEMIA, ASSESS FOR BLEED COMPARISON: None. TECHNIQUE: Multiple contiguous axial images were obtained from the lung bases to the pubic symphysis without administration of IV contrast. Reformatted sagittal and coronal images were available for review. FINDINGS: Lung bases: Small bilateral pleural effusions of low-density. Associated atelectasis at the bilateral lung bases. Visualized heart and mediastinum: Mild cardiomegaly. Liver: 1 centimeter low-density lesion in the medial left hepatic lobe (series 3, image 40), incompletely characterized on this noncontrast study but may represent a cyst. Spleen: Normal noncontrast appearance. Pancreas: Normal noncontrast appearance. Gallbladder and Biliary Tree: No calcified gallstones. No biliary ductal dilatation. Adrenal glands: Normal. Kidneys: Small bilateral kidneys. No hydronephrosis. Simple appearing cysts of the bilateral kidneys measuring up to 1.3 centimeters on the right and 1.2 centimeters on the left. Bladder: Membreno catheter within a decompressed bladder. Pelvic organs: Mild enlargement of the prostate gland, which measures approximately 4.9 x 4.4 centimeters. Bowel: Enteric tube with tip in the stomach. No focal wall thickening. No evidence of obstruction. The appendix is not clearly identified, but there are no pericecal inflammatory changes. Peritoneum: No significant mesenteric adenopathy. No free air or free fluid. Vasculature: Abdominal aorta is normal in caliber without evidence of aneurysm. Scattered atherosclerotic calcifications. There is a right femoral PICC line with its tip in the inferior vena cava. Normal noncontrast appearance of the portal venous system . Bones and soft tissues: No suspicious osseous lesions. No acute fracture or dislocation. Soft tissues are normal. IMPRESSION: 1. No intra-abdominal bleed. 2. Small bilateral pleural effusions with associated atelectasis at the lung bases. 3. 1 centimeter low-density lesion in the medial left hepatic lobe, incompletely characterized on this noncontrast study, but may represent a cyst. 4. Small atrophic kidneys with simple appearing cysts.
[2017-12-17] MEDS: NITRO-BID 2% TP SCH (14:36)
[2017-12-17] MEDS: APRESOLINE IV PRN (14:43)
[2017-12-17] MEDS: COREG PO SCH ×2 (14:44→22:39)
[2017-12-17] MEDS ORDERED: NACL 0.9% 100 ML IV PRN (17:02)
[2017-12-17] MEDS: DIPRIVAN 10 MG/ML 1,000 MG/100 ML BOTTLE IV SCH (17:38)
[2017-12-17 17:42] LABS: Hematocrit 29.8 % (35.5-45.6); Hemoglobin 9.8 gm/dl (11.8-15.2)
[2017-12-17] MEDS: ATIVAN IV PRN (19:41)
[2017-12-18 00:50] LABS: Hematocrit 29.9 % (35.5-45.6); Hemoglobin 9.9 gm/dl (11.8-15.2)
--- NOTE | 2017-12-18 02:56 | XRay Report ---
FINAL REPORT PROCEDURE: XR CHEST 1V AP TECHNIQUE: Chest radiograph anteroposterior view. CPT 13756 HISTORY: follow up respiratory failure COMPARISON: 12/17/2017 FINDINGS: Heart: The heart size is slightly prominent. Mediastinum/Vessels: Normal. Lungs/Pleural space: Mild vascular congestion. Slight atelectasis left lower lung. Bony thorax: No acute osseous abnormality. Life support devices: The endotracheal tube ends 5 centimeter above the tricia. A nasogastric tube ends below the hemidiaphragms.. IMPRESSION: Mild vascular congestion with slight atelectasis left lower lung. Mild cardiomegaly..
[2017-12-18 05:43] LABS: Basophils # (Auto) 0.1 K/mm3 (0.0-0.1); Basophils % (Auto) 0.5 % (0.0-1.8); Eosinophils # (Auto) 0.3 K/mm3 (0.0-0.4); Eosinophils % (Auto) 2.3 % (0.0-4.3); Hematocrit 29.7 % (35.5-45.6); Hemoglobin 9.8 gm/dl (11.8-15.2); Lymphocytes # (Auto) 1.7 K/mm3 (1.2-5.4); Lymphocytes % (Auto) 12.3 % (13.4-35.0); Mean Corpuscular HGB Conc 33 % (32-34); Mean Corpuscular Hemoglobin 27 pg (28-32); Mean Corpuscular Volume 81 fl (84-94); Monocytes # (Auto) 1.3 K/mm3 (0.0-0.8); Monocytes % (Auto) 9.4 % (0.0-7.3); Platelet Count 357 K/mm3 (140-440); Red Blood Count 3.67 M/mm3 (3.65-5.03); Red Cell Distribution Width 18.8 % (13.2-15.2)
[2017-12-18 05:57] LABS: Calcium 9.3 mg/dL (8.4-10.2)
[2017-12-18] MEDS: ZOSYN/NS 2.25 GM/50ML 2.25 GM/50 ML BAG IV SCH (06:35)
[2017-12-18] MEDS: HumaLOG SUB-Q SCH ×5 (06:36→21:58)
[2017-12-18] MEDS: NITRO-BID 2% TP SCH ×2 (06:50→13:55)
[2017-12-18] MEDS: DUONEB *Not for PRN Use IH SCH ×3 (08:05→20:53)
[2017-12-18] MEDS: SODIUM CHLORIDE FLUSH SYRINGE 10 ML IV SCH ×2 (08:18→11:48)
[2017-12-18] MEDS: HEPARIN SUB-Q SCH (08:19)
[2017-12-18] MEDS: DIPRIVAN 10 MG/ML 1,000 MG/100 ML BOTTLE IV SCH ×2 (08:42→17:59)
--- NOTE | 2017-12-18 09:13 | Progress Note ---
Assessment and Plan Acute respiratory failure secondary to pulmonary edema. Controlled per last chest x-ray Pulmonary edema likely from acute renal failure Endstage renal disease Hyperkalemia Anemia. Currently off heparin pending GI reevaluation Recommendations GI evaluation, monitor abdominal findings closely No bleeding clinically, H&H appears to be stable. Off heparin pending GI evaluation Monitor electrolytes SBT if appropriate in the morning DVT prophylaxis. Currently off heparin Renal care, hemodialysis per nephrology. Critical care time was 31 minutes of [id number] evaluation and coordination of care Subjective Date of service: 12/18/17 Principal diagnosis: BALDO on CKD Interval history: Sedated and intubated Objective Vital Signs - 12hr 12/17/17 12/17/17 12/17/17 21:15 21:31 21:45 Temperature Pulse Rate 96 H 99 H 98 H Pulse Rate [ Anterior Bilateral Throughout] Pulse Rate [ From Monitor] Respiratory 22 22 22 Rate Respiratory Rate [Anterior Bilateral Throughout] Blood Pressure 149/89 128/57 128/57 O2 Sat by Pulse 99 99 98 Oximetry 12/17/17 12/17/17 12/17/17 22:00 22:15 22:31 Temperature Pulse Rate 100 H 97 H 97 H Pulse Rate [ Anterior Bilateral Throughout] Pulse Rate [ From Monitor] Respiratory 22 22 22 Rate Respiratory Rate [Anterior Bilateral Throughout] Blood Pressure 137/74 130/73 129/77 O2 Sat by Pulse 99 99 99 Oximetry 12/17/17 12/17/17 12/17/17 22:39 22:45 23:00 Temperature Pulse Rate 95 H 94 H 95 H Pulse Rate [ Anterior Bilateral Throughout] Pulse Rate [ From Monitor] Respiratory 22 22 Rate Respiratory Rate [Anterior Bilateral Throughout] Blood Pressure 129/77 133/83 133/83 O2 Sat by Pulse 99 99 Oximetry 12/17/17 12/17/17 12/17/17 23:15 23:19 23:31 Temperature Pulse Rate 97 H 96 H 98 H Pulse Rate [ Anterior Bilateral Throughout] Pulse Rate [ From Monitor] Respiratory 26 H 22 18 Rate Respiratory Rate [Anterior Bilateral Throughout] Blood Pressure 132/72 103/62 104/56 O2 Sat by Pulse 100 100 100 Oximetry 12/17/17 12/17/17 12/18/17 23:40 23:45 00:01 Temperature 98.9 F Pulse Rate 98 H 95 H Pulse Rate [ Anterior Bilateral Throughout] Pulse Rate [ From Monitor] Respiratory 22 22 Rate Respiratory Rate [Anterior Bilateral Throughout] Blood Pressure 100/64 108/48 O2 Sat by Pulse 99 99 Oximetry 12/18/17 12/18/17 12/18/17 00:06 00:15 00:30 Temperature Pulse Rate 97 H 97 H 92 H Pulse Rate [ Anterior Bilateral Throughout] Pulse Rate [ From Monitor] Respiratory 22 22 Rate Respiratory Rate [Anterior Bilateral Throughout] Blood Pressure 108/48 119/66 138/83 O2 Sat by Pulse 98 99 99 Oximetry 12/18/17 12/18/17 12/18/17 00:45 00:49 01:00 Temperature Pulse Rate 91 H 95 H Pulse Rate [ Anterior Bilateral Throughout] Pulse Rate [ 95 H From Monitor] Respiratory 22 22 22 Rate Respiratory Rate [Anterior Bilateral Throughout] Blood Pressure 135/75 120/68 O2 Sat by Pulse 98 100 98 Oximetry 12/18/17 12/18/17 12/18/17 01:15 01:30 01:45 Temperature Pulse Rate 96 H 93 H 92 H Pulse Rate [ Anterior Bilateral Throughout] Pulse Rate [ From Monitor] Respiratory 22 22 22 Rate Respiratory Rate [Anterior Bilateral Throughout] Blood Pressure 127/75 131/79 113/64 O2 Sat by Pulse 98 99 98 Oximetry 12/18/17 12/18/17 12/18/17 02:00 02:15 02:30 Temperature Pulse Rate 93 H 91 H 93 H Pulse Rate [ Anterior Bilateral Throughout] Pulse Rate [ From Monitor] Respiratory 22 22 22 Rate Respiratory Rate [Anterior Bilateral Throughout] Blood Pressure 133/70 122/80 126/68 O2 Sat by Pulse 99 99 98 Oximetry 12/18/17 12/18/17 12/18/17 02:45 03:00 03:10 Temperature 98.7 F Pulse Rate 96 H 91 H Pulse Rate [ Anterior Bilateral Throughout] Pulse Rate [ From Monitor] Respiratory 22 22 Rate Respiratory Rate [Anterior Bilateral Throughout] Blood Pressure 121/70 115/80 O2 Sat by Pulse 99 99 Oximetry 12/18/17 12/18/17 12/18/17 03:15 03:30 03:45 Temperature Pulse Rate 90 91 H 91 H Pulse Rate [ Anterior Bilateral Throughout] Pulse Rate [ From Monitor] Respiratory 22 22 22 Rate Respiratory Rate [Anterior Bilateral Throughout] Blood Pressure 120/73 112/67 120/65 O2 Sat by Pulse 99 99 99 Oximetry 12/18/17 12/18/17 12/18/17 04:00 04:15 04:30 Temperature Pulse Rate 85 90 91 H Pulse Rate [ Anterior Bilateral Throughout] Pulse Rate [ From Monitor] Respiratory 22 22 22 Rate Respiratory Rate [Anterior Bilateral Throughout] Blood Pressure 121/58 115/76 123/77 O2 Sat by Pulse 99 99 99 Oximetry 12/18/17 12/18/17 12/18/17 04:44 04:45 05:00 Temperature Pulse Rate 87 85 88 Pulse Rate [ Anterior Bilateral Throughout] Pulse Rate [ From Monitor] Respiratory 22 22 Rate Respiratory Rate [Anterior Bilateral Throughout] Blood Pressure 135/73 135/73 121/76 O2 Sat by Pulse 99 99 99 Oximetry 12/18/17 12/18/17 12/18/17 05:15 05:31 05:45 Temperature Pulse Rate 84 85 88 Pulse Rate [ Anterior Bilateral Throughout] Pulse Rate [ From Monitor] Respiratory 22 22 22 Rate Respiratory Rate [Anterior Bilateral Throughout] Blood Pressure 146/84 130/68 116/68 O2 Sat by Pulse 100 100 100 Oximetry 12/18/17 12/18/17 12/18/17 06:00 06:15 06:30 Temperature Pulse Rate 87 88 87 Pulse Rate [ Anterior Bilateral Throughout] Pulse Rate [ From Monitor] Respiratory 22 22 22 Rate Respiratory Rate [Anterior Bilateral Throughout] Blood Pressure 120/74 123/71 141/87 O2 Sat by Pulse 100 99 Oximetry 12/18/17 12/18/17 12/18/17 06:45 06:50 07:00 Temperature Pulse Rate 87 87 87 Pulse Rate [ Anterior Bilateral Throughout] Pulse Rate [ From Monitor] Respiratory 22 22 Rate Respiratory Rate [Anterior Bilateral Throughout] Blood Pressure 125/74 125/74 124/83 O2 Sat by Pulse Oximetry 12/18/17 12/18/17 12/18/17 07:10 07:15 07:30 Temperature Pulse Rate 86 93 H 86 Pulse Rate [ Anterior Bilateral Throughout] Pulse Rate [ From Monitor] Respiratory 21 22 Rate Respiratory Rate [Anterior Bilateral Throughout] Blood Pressure 116/74 116/74 136/71 O2 Sat by Pulse 99 99 Oximetry 12/18/17 12/18/17 12/18/17 07:45 08:00 08:15 Temperature 99.1 F Pulse Rate 81 84 85 Pulse Rate [ 83 Anterior Bilateral Throughout] Pulse Rate [ 99 H From Monitor] Respiratory 22 22 22 Rate Respiratory 22 Rate [Anterior Bilateral Throughout] Blood Pressure 133/77 129/84 142/86 O2 Sat by Pulse 99 99 99 Oximetry 12/18/17 08:20 Temperature Pulse Rate Pulse Rate [ 88 Anterior Bilateral Throughout] Pulse Rate [ From Monitor] Respiratory Rate Respiratory 22 Rate [Anterior Bilateral Throughout] Blood Pressure O2 Sat by Pulse Oximetry Constitutional: no acute distress, other (sedated ) ENT: other (orally intubated and sedated, critically ill. Right central in position) Neck: supple Effort: normal Ascultation: Bilateral: clear, diminished breath sounds Percussion: Bilateral: not dull Cardiovascular: regular rate and rhythm Gastrointestinal: normoactive bowel sounds, soft, tender, other (no rebound tenderness, bowel sounds present) Integumentary: normal Extremities: no edema, pink and warm, pulses normal Neurologic: other (sedated but responsive with stimulated. ROS -2) CBC and BMP: 12/18/17 05:12 12/18/17 05:12 ABG, PT/INR, D-dimer: ABG POC ABG pH 7.497 (7.35-7.45) H 12/18/17 04:44 POC ABG pCO2 27.0 (35-45) L 12/18/17 04:44 POC ABG pO2 136 (80-105) H 12/18/17 04:44 POC ABG HCO3 20.9 12/18/17 04:44 POC ABG Total CO2 22 12/18/17 04:44 POC ABG O2 Sat 99 12/18/17 04:44 PT/INR, D-dimer D-Dimer 1108.83 ng/mlDDU (0-234) H 12/15/17 17:16 Abnormal lab findings: Abnormal Labs 12/15/17 12/15/17 12/15/17 17:16 17:16 17:16 WBC 16.7 H RBC 2.12 L Hgb 4.9 L* Hct 16.0 L* MCV 76 L MCH 23 L MCHC 30 L RDW 17.3 H Plt Count 445 H Lymph % (Auto) 11.3 L [place] % (Auto) 7.4 H [place] # 1.2 H Seg Neutrophils % 80.2 H Seg Neutrophils # 13.4 H D-Dimer 1108.83 H POC ABG pH POC ABG pCO2 POC ABG pO2 VBG pH Potassium 5.1 H Carbon Dioxide 18 L BUN 76 H Creatinine 7.1 H Glucose 148 H POC Glucose Calcium 8.2 L Iron Total Creatine Kinase 736 H CK-MB (CK-2) 7.7 H Troponin T 0.067 H NT-Pro-B Natriuret Pep Albumin Triglycerides 206 H HDL Cholesterol 29 L Urine WBC (Auto) Urine Creatinine Urine Total Protein Crossmatch 12/15/17 12/15/17 12/15/17 17:16 17:45 18:01 WBC RBC Hgb Hct MCV MCH MCHC RDW Plt Count Lymph % (Auto) [place] % (Auto) [place] # Seg Neutrophils % Seg Neutrophils # D-Dimer POC ABG pH POC ABG pCO2 POC ABG pO2 VBG pH 7.204 L Potassium Carbon Dioxide BUN Creatinine Glucose POC Glucose Calcium Iron Total Creatine Kinase CK-MB (CK-2) Troponin T NT-Pro-B Natriuret Pep 99151 H Albumin Triglycerides HDL Cholesterol Urine WBC (Auto) Urine Creatinine Urine Total Protein Crossmatch See Detail 12/15/17 12/15/17 12/16/17 18:32 23:26 00:24 WBC RBC Hgb Hct MCV MCH MCHC RDW Plt Count Lymph % (Auto) [place] % (Auto) [place] # Seg Neutrophils % Seg Neutrophils # D-Dimer POC ABG pH 7.324 L 7.142 L POC ABG pCO2 33.6 L 50.4 H POC ABG pO2 110 H 107 H VBG pH Potassium Carbon Dioxide BUN Creatinine Glucose POC Glucose Calcium Iron 37 L Total Creatine Kinase CK-MB (CK-2) Troponin T NT-Pro-B Natriuret Pep Albumin Triglycerides HDL Cholesterol Urine WBC (Auto) Urine Creatinine Urine Total Protein Crossmatch 12/16/17 12/16/17 12/16/17 03:41 03:43 03:43 WBC 16.3 H RBC 3.01 L Hgb 7.5 L Hct 24.3 L D MCV 81 L MCH 25 L MCHC 31 L RDW 17.7 H Plt Count Lymph % (Auto) 7.9 L [place] % (Auto) 7.8 H [place] # 1.3 H Seg Neutrophils % 83.7 H Seg Neutrophils # 13.7 H D-Dimer POC ABG pH 7.211 L POC ABG pCO2 45.3 H POC ABG pO2 123 H VBG pH Potassium 5.3 H Carbon Dioxide 16 L BUN 76 H Creatinine 7.5 H Glucose 121 H POC Glucose Calcium 7.9 L Iron Total Creatine Kinase CK-MB (CK-2) Troponin T NT-Pro-B Natriuret Pep Albumin 3.6 L Triglycerides HDL Cholesterol Urine WBC (Auto) Urine Creatinine Urine Total Protein Crossmatch 12/16/17 12/16/17 12/16/17 10:11 11:10 11:41 WBC 17.6 H RBC 3.16 L Hgb 7.9 L Hct 24.5 L MCV 78 L MCH 25 L MCHC RDW 17.7 H Plt Count Lymph % (Auto) 8.6 L [place] % (Auto) [place] # 1.3 H Seg Neutrophils % 83.7 H Seg Neutrophils # 14.7 H D-Dimer POC ABG pH 7.491 H POC ABG pCO2 POC ABG pO2 56 L VBG pH Potassium Carbon Dioxide BUN Creatinine Glucose POC Glucose 127 H Calcium Iron Total Creatine Kinase CK-MB (CK-2) Troponin T NT-Pro-B Natriuret Pep Albumin Triglycerides HDL Cholesterol Urine WBC (Auto) Urine Creatinine Urine Total Protein Crossmatch 12/16/17 12/16/17 12/16/17 12:05 12:05 12:15 WBC RBC Hgb 7.4 L Hct 22.8 L MCV MCH MCHC RDW Plt Count Lymph % (Auto) [place] % (Auto) [place] # Seg Neutrophils % Seg Neutrophils # D-Dimer POC ABG pH POC ABG pCO2 POC ABG pO2 VBG pH Potassium Carbon Dioxide BUN Creatinine Glucose POC Glucose Calcium Iron Total Creatine Kinase CK-MB (CK-2) Troponin T NT-Pro-B Natriuret Pep Albumin Triglycerides HDL Cholesterol Urine WBC (Auto) > 182.0 H Urine Creatinine 81.7 H Urine Total Protein 493 H Crossmatch 12/16/17 12/16/17 12/17/17 17:52 18:08 00:11 WBC RBC Hgb 6.6 L 6.9 L Hct 20.6 L 20.8 L MCV MCH MCHC RDW Plt Count Lymph % (Auto) [place] % (Auto) [place] # Seg Neutrophils % Seg Neutrophils # D-Dimer POC ABG pH POC ABG pCO2 POC ABG pO2 VBG pH Potassium Carbon Dioxide BUN Creatinine Glucose POC Glucose 127 H Calcium Iron Total Creatine Kinase CK-MB (CK-2) Troponin T NT-Pro-B Natriuret Pep Albumin Triglycerides HDL Cholesterol Urine WBC (Auto) Urine Creatinine Urine Total Protein Crossmatch 12/17/17 12/17/17 12/17/17 00:24 04:03 07:54 WBC 13.1 H RBC 3.06 L Hgb 8.1 L Hct 24.3 L MCV 79 L MCH 26 L MCHC RDW 18.6 H Plt Count Lymph % (Auto) 11.9 L [place] % (Auto) 8.6 H [place] # 1.1 H Seg Neutrophils % 77.9 H Seg Neutrophils # 10.2 H D-Dimer POC ABG pH 7.453 H POC ABG pCO2 33.6 L POC ABG pO2 VBG pH Potassium Carbon Dioxide BUN Creatinine Glucose POC Glucose 126 H Calcium Iron Total Creatine Kinase CK-MB (CK-2) Troponin T NT-Pro-B Natriuret Pep Albumin Triglycerides HDL Cholesterol Urine WBC (Auto) Urine Creatinine Urine Total Protein Crossmatch 12/17/17 12/17/17 12/17/17 07:54 09:22 11:55 WBC RBC Hgb Hct MCV MCH MCHC RDW Plt Count Lymph % (Auto) [place] % (Auto) [place] # Seg Neutrophils % Seg Neutrophils # D-Dimer POC ABG pH POC ABG pCO2 POC ABG pO2 VBG pH Potassium 3.4 L D Carbon Dioxide 21 L BUN 65 H Creatinine 6.4 H Glucose 133 H POC Glucose 112 H 119 H Calcium Iron Total Creatine Kinase CK-MB (CK-2) Troponin T NT-Pro-B Natriuret Pep Albumin Triglycerides HDL Cholesterol Urine WBC (Auto) Urine Creatinine Urine Total Protein Crossmatch 12/17/17 12/17/17 12/17/17 13:07 17:15 17:29 WBC RBC Hgb 9.3 L 9.8 L Hct 27.9 L 29.8 L MCV MCH MCHC RDW Plt Count Lymph % (Auto) [place] % (Auto) [place] # Seg Neutrophils % Seg Neutrophils # D-Dimer POC ABG pH POC ABG pCO2 POC ABG pO2 VBG pH Potassium Carbon Dioxide BUN Creatinine Glucose POC Glucose 158 H Calcium Iron Total Creatine Kinase CK-MB (CK-2) Troponin T NT-Pro-B Natriuret Pep Albumin Triglycerides HDL Cholesterol Urine WBC (Auto) Urine Creatinine Urine Total Protein Crossmatch 12/18/17 12/18/17 12/18/17 00:03 00:28 04:44 WBC RBC Hgb 9.9 L Hct 29.9 L MCV MCH MCHC RDW Plt Count Lymph % (Auto) [place] % (Auto) [place] # Seg Neutrophils % Seg Neutrophils # D-Dimer POC ABG pH 7.497 H POC ABG pCO2 27.0 L POC ABG pO2 136 H VBG pH Potassium Carbon Dioxide BUN Creatinine Glucose POC Glucose 109 H Calcium Iron Total Creatine Kinase CK-MB (CK-2) Troponin T NT-Pro-B Natriuret Pep Albumin Triglycerides HDL Cholesterol Urine WBC (Auto) Urine Creatinine Urine Total Protein Crossmatch 12/18/17 12/18/17 05:12 05:12 WBC 14.2 H RBC Hgb 9.8 L Hct 29.7 L MCV 81 L MCH 27 L MCHC RDW 18.8 H Plt Count Lymph % (Auto) 12.3 L [place] % (Auto) 9.4 H [place] # 1.3 H Seg Neutrophils % 75.5 H Seg Neutrophils # 10.7 H D-Dimer POC ABG pH POC ABG pCO2 POC ABG pO2 VBG pH Potassium Carbon Dioxide 19 L BUN 55 H Creatinine 6.0 H Glucose 112 H POC Glucose Calcium Iron Total Creatine Kinase CK-MB (CK-2) Troponin T NT-Pro-B Natriuret Pep Albumin Triglycerides HDL Cholesterol Urine WBC (Auto) Urine Creatinine Urine Total Protein Crossmatch
--- NOTE | 2017-12-18 09:15 | Progress Note ---
Assessment and Plan - Patient Problems (1) Acute kidney injury superimposed on chronic kidney disease Current Visit: Yes Status: Acute Plan to address problem: Patient presumably has chronic kidney disease given the echogenic kidneys and nephrotic range proteinuria. Question chronic Glomerulonephritis. Acute kidney injury probably acute tubular necrosis versus acute on chronic cardiorenal syndrome. Patient tolerated dialysis with improvement in volume status. Hold dialysis today and reevaluate need for dialysis tomorrow. Start making arrangements for outpatient dialysis (2) Acute heart failure Current Visit: Yes Status: Acute Plan to address problem: Volume status improved with dialysis. Follow 2-D echo (3) Hypertensive chronic kidney disease with stage 5 chronic kidney disease or end stage renal disease Current Visit: Yes Status: Acute Plan to address problem: Follow-up blood pressure on current medications (4) Acidosis, metabolic Current Visit: Yes Status: Acute Plan to address problem: Improving with dialysis (5) Severe anemia Current Visit: Yes Status: Chronic Plan to address problem: Hemoglobin improved with packed Red blood cell transfusions. Follow-up hemoglobin (6) Acute respiratory failure with hypoxia Current Visit: Yes Status: Acute Plan to address problem: Weaning per pulmonary. Subjective Date of service: 12/18/17 Principal diagnosis: BALDO on CKD Interval history: Patient seen lying in bed in intensive care unit. He is intubated on ventilator. He is not on any vasopressors. Objective - Exam Narrative Exam: Elderly male lying in bed intubated on ventilator HEENT: NCAT, endotracheal tube intact Neck: Supple, no venous distention CVS: S1S2 RRR with no murmur, rub or gallop Chest: Clear to auscultation Abdomen: Protuberant, soft, nontender, no organomegaly, bowel sounds are present Extremities: No edema Skin warm and dry, no rash Neuro: Sedated, intubated - Vital Signs Vital signs: Vital Signs - 12hr 12/17/17 12/17/17 12/17/17 21:15 21:31 21:45 Temperature Pulse Rate 96 H 99 H 98 H Pulse Rate [ Anterior Bilateral Throughout] Pulse Rate [ From Monitor] Respiratory 22 22 22 Rate Respiratory Rate [Anterior Bilateral Throughout] Blood Pressure 149/89 128/57 128/57 O2 Sat by Pulse 99 99 98 Oximetry 12/17/17 12/17/17 12/17/17 22:00 22:15 22:31 Temperature Pulse Rate 100 H 97 H 97 H Pulse Rate [ Anterior Bilateral Throughout] Pulse Rate [ From Monitor] Respiratory 22 22 22 Rate Respiratory Rate [Anterior Bilateral Throughout] Blood Pressure 137/74 130/73 129/77 O2 Sat by Pulse 99 99 99 Oximetry 12/17/17 12/17/17 12/17/17 22:39 22:45 23:00 Temperature Pulse Rate 95 H 94 H 95 H Pulse Rate [ Anterior Bilateral Throughout] Pulse Rate [ From Monitor] Respiratory 22 22 Rate Respiratory Rate [Anterior Bilateral Throughout] Blood Pressure 129/77 133/83 133/83 O2 Sat by Pulse 99 99 Oximetry 12/17/17 12/17/17 12/17/17 23:15 23:19 23:31 Temperature Pulse Rate 97 H 96 H 98 H Pulse Rate [ Anterior Bilateral Throughout] Pulse Rate [ From Monitor] Respiratory 26 H 22 18 Rate Respiratory Rate [Anterior Bilateral Throughout] Blood Pressure 132/72 103/62 104/56 O2 Sat by Pulse 100 100 100 Oximetry 12/17/17 12/17/17 12/18/17 23:40 23:45 00:01 Temperature 98.9 F Pulse Rate 98 H 95 H Pulse Rate [ Anterior Bilateral Throughout] Pulse Rate [ From Monitor] Respiratory 22 22 Rate Respiratory Rate [Anterior Bilateral Throughout] Blood Pressure 100/64 108/48 O2 Sat by Pulse 99 99 Oximetry 12/18/17 12/18/17 12/18/17 00:06 00:15 00:30 Temperature Pulse Rate 97 H 97 H 92 H Pulse Rate [ Anterior Bilateral Throughout] Pulse Rate [ From Monitor] Respiratory 22 22 Rate Respiratory Rate [Anterior Bilateral Throughout] Blood Pressure 108/48 119/66 138/83 O2 Sat by Pulse 98 99 99 Oximetry 12/18/17 12/18/17 12/18/17 00:45 00:49 01:00 Temperature Pulse Rate 91 H 95 H Pulse Rate [ Anterior Bilateral Throughout] Pulse Rate [ 95 H From Monitor] Respiratory 22 22 22 Rate Respiratory Rate [Anterior Bilateral Throughout] Blood Pressure 135/75 120/68 O2 Sat by Pulse 98 100 98 Oximetry 12/18/17 12/18/17 12/18/17 01:15 01:30 01:45 Temperature Pulse Rate 96 H 93 H 92 H Pulse Rate [ Anterior Bilateral Throughout] Pulse Rate [ From Monitor] Respiratory 22 22 22 Rate Respiratory Rate [Anterior Bilateral Throughout] Blood Pressure 127/75 131/79 113/64 O2 Sat by Pulse 98 99 98 Oximetry 12/18/17 12/18/17 12/18/17 02:00 02:15 02:30 Temperature Pulse Rate 93 H 91 H 93 H Pulse Rate [ Anterior Bilateral Throughout] Pulse Rate [ From Monitor] Respiratory 22 22 Rate Respiratory Rate [Anterior Bilateral Throughout] Blood Pressure 133/70 122/80 126/68 O2 Sat by Pulse 99 99 98 Oximetry 12/18/17 12/18/17 12/18/17 02:45 03:00 03:10 Temperature 98.7 F Pulse Rate 96 H 91 H Pulse Rate [ Anterior Bilateral Throughout] Pulse Rate [ From Monitor] Respiratory 22 22 Rate Respiratory Rate [Anterior Bilateral Throughout] Blood Pressure 121/70 115/80 O2 Sat by Pulse 99 99 Oximetry 12/18/17 12/18/17 12/18/17 03:15 03:30 03:45 Temperature Pulse Rate 90 91 H 91 H Pulse Rate [ Anterior Bilateral Throughout] Pulse Rate [ From Monitor] Respiratory 22 22 Rate Respiratory Rate [Anterior Bilateral Throughout] Blood Pressure 120/73 112/67 120/65 O2 Sat by Pulse 99 99 99 Oximetry 12/18/17 12/18/17 12/18/17 04:00 04:15 04:30 Temperature Pulse Rate 85 90 91 H Pulse Rate [ Anterior Bilateral Throughout] Pulse Rate [ From Monitor] Respiratory 22 22 Rate Respiratory Rate [Anterior Bilateral Throughout] Blood Pressure 121/58 115/76 123/77 O2 Sat by Pulse 99 99 99 Oximetry 12/18/17 12/18/17 12/18/17 04:44 04:45 05:00 Temperature Pulse Rate 87 85 88 Pulse Rate [ Anterior Bilateral Throughout] Pulse Rate [ From Monitor] Respiratory 22 22 Rate Respiratory Rate [Anterior Bilateral Throughout] Blood Pressure 135/73 135/73 121/76 O2 Sat by Pulse 99 99 99 Oximetry 12/18/17 12/18/17 12/18/17 05:15 05:31 05:45 Temperature Pulse Rate 84 85 88 Pulse Rate [ Anterior Bilateral Throughout] Pulse Rate [ From Monitor] Respiratory 22 22 22 Rate Respiratory Rate [Anterior Bilateral Throughout] Blood Pressure 146/84 130/68 116/68 O2 Sat by Pulse 100 100 100 Oximetry 12/18/17 12/18/17 12/18/17 06:00 06:15 06:30 Temperature Pulse Rate 87 88 87 Pulse Rate [ Anterior Bilateral Throughout] Pulse Rate [ From Monitor] Respiratory 22 22 22 Rate Respiratory Rate [Anterior Bilateral Throughout] Blood Pressure 120/74 123/71 141/87 O2 Sat by Pulse 100 99 Oximetry 12/18/17 12/18/17 12/18/17 06:45 06:50 07:00 Temperature Pulse Rate 87 87 87 Pulse Rate [ Anterior Bilateral Throughout] Pulse Rate [ From Monitor] Respiratory 22 22 Rate Respiratory Rate [Anterior Bilateral Throughout] Blood Pressure 125/74 125/74 124/83 O2 Sat by Pulse Oximetry 12/18/17 12/18/17 12/18/17 07:10 07:15 07:30 Temperature Pulse Rate 86 93 H 86 Pulse Rate [ Anterior Bilateral Throughout] Pulse Rate [ From Monitor] Respiratory 21 22 Rate Respiratory Rate [Anterior Bilateral Throughout] Blood Pressure 116/74 116/74 136/71 O2 Sat by Pulse 99 99 Oximetry 12/18/17 12/18/17 12/18/17 07:45 08:00 08:15 Temperature 99.1 F Pulse Rate 81 84 85 Pulse Rate [ 83 Anterior Bilateral Throughout] Pulse Rate [ 99 H From Monitor] Respiratory 22 22 22 Rate Respiratory 22 Rate [Anterior Bilateral Throughout] Blood Pressure 133/77 129/84 142/86 O2 Sat by Pulse 99 99 99 Oximetry 12/18/17 08:20 Temperature Pulse Rate Pulse Rate [ 88 Anterior Bilateral Throughout] Pulse Rate [ From Monitor] Respiratory Rate Respiratory 22 Rate [Anterior Bilateral Throughout] Blood Pressure O2 Sat by Pulse Oximetry - Lab 12/18/17 05:12 12/18/17 05:12 Most recent lab results Calcium 9.3 mg/dL (8.4-10.2) 12/18/17 05:12 Urine Creatinine 81.7 mg/dL (0.1-20.0) H 12/16/17 12:05 Urine Sodium 62 mmol/L 12/16/17 12:05 Urine Total Protein 493 mg/dL (5-11.8) H 12/16/17 12:05
[2017-12-18] MEDS: COREG PO SCH ×2 (11:47→21:57)
[2017-12-18] MEDS: PROTONIX IV SCH ×2 (11:47→21:58)
--- NOTE | 2017-12-18 12:20 | Progress Note ---
Assessment and Plan - Patient Problems (1) Acute exacerbation of CHF (congestive heart failure) Current Visit: Yes Status: Acute Qualifiers: Heart failure type: combined systolic and diastolic Qualified Code(s): I50.43 - Acute on chronic combined systolic (congestive) and diastolic ( congestive) heart failure (2) Acute kidney injury superimposed on chronic kidney disease Current Visit: Yes Status: Acute (3) Acute pulmonary edema Current Visit: Yes Status: Acute (4) Acute renal failure (ARF) Current Visit: Yes Status: Acute (5) Anemia Current Visit: Yes Status: Acute (6) Respiratory failure Current Visit: Yes Status: Acute Qualifiers: Chronicity: acute Respiratory failure complication: hypoxia Qualified Code(s): J96.01 - Acute respiratory failure with hypoxia (7) Severe anemia Current Visit: Yes Status: Chronic Subjective Date of service: 12/18/17 Principal diagnosis: BALDO on CKD Interval history: VENT' Objective Vital Signs Temp Pulse Pulse Pulse Resp Resp BP 12/18/17 12:00 97.7 F 92 H 92 H 22 108/70 12/18/17 11:47 93 H 140/89 12/18/17 11:45 93 H 22 140/89 12/18/17 11:30 93 H 22 125/90 12/18/17 11:15 92 H 22 117/87 12/18/17 11:00 92 H 22 122/85 12/18/17 10:45 95 H 22 128/87 12/18/17 10:30 95 H 22 106/67 12/18/17 10:15 95 H 22 117/75 12/18/17 10:00 97 H 22 115/74 12/18/17 09:45 96 H 22 119/78 12/18/17 09:30 97 H 22 117/76 12/18/17 09:15 96 H 22 120/76 12/18/17 09:00 93 H 21 132/86 12/18/17 08:45 91 H 22 132/86 12/18/17 08:30 91 H 21 145/89 12/18/17 08:20 88 22 12/18/17 08:15 85 22 142/86 12/18/17 08:00 99.1 F 84 83 99 H 22 22 129/84 12/18/17 07:45 81 22 133/77 12/18/17 07:30 86 22 136/71 09/17/18 07:15 93 H 21 116/74 17/18 07:10 86 116/74 18 07:00 87 22 124/83 18 06:50 87 125/74 18 06:45 87 22 125/74 18 06:30 87 22 141/87 18 06:15 88 22 123/71 18 06:00 87 22 120/74 18 05:45 88 22 116/68 18 05:31 85 22 130/68 18 05:15 84 22 146/84 12/18/17 05:00 88 22 121/76 12/18/17 04:45 85 22 135/73 18 04:44 87 135/73 18 04:30 91 H 22 123/77 18 04:15 90 22 115/76 18 04:00 85 22 121/58 18 03:45 91 H 22 120/65 18 03:30 91 H 22 112/67 18 03:15 90 22 120/73 12/18/18 03:10 98.7 F 12/18/17 03:00 91 H 22 115/80 18 02:45 96 H 22 121/70 18 02:30 93 H 22 126/68 18 02:15 91 H 22 122/80 18 02:00 93 H 22 133/70 18 01:45 92 H 22 113/64 18 01:30 93 H 22 131/79 18 01:15 96 H 22 127/75 18 01:00 95 H 22 120/68 18 00:49 95 H 22 18 00:45 91 H 22 135/75 18 00:30 92 H 22 138/83 18 00:15 97 H 22 119/66 18 00:06 97 H 108/48 18 00:01 95 H 22 108/48 18 23:45 98 H 22 100/64 18 23:40 98.9 F 09/16/18 23:31 98 H 18 104/56 12/17/17 23:19 96 H 22 103/62 12/17/17 23:15 97 H 26 H 132/72 12/17/17 23:00 95 H 22 133/83 12/17/17 22:45 94 H 22 133/83 12/17/17 22:39 95 H 129/77 12/17/17 22:31 97 H 22 129/77 12/17/17 22:15 97 H 22 130/73 12/17/17 22:00 100 H 22 137/74 12/17/17 21:45 98 H 22 128/57 12/17/17 21:31 99 H 22 128/57 12/17/17 21:15 96 H 22 149/89 12/17/17 21:01 103 H 26 H 149/89 12/17/17 21:00 102 H 23 12/17/17 20:45 100 H 22 130/59 12/17/17 20:37 103 H 94 H 19 130/59 12/17/17 20:30 105 H 92 H 22 130/74 12/17/17 20:20 98.8 F 95 H 21 125/83 12/17/17 20:15 96 H 22 130/74 12/17/17 20:01 109 H 25 H 104/54 12/17/17 20:00 103 H 104/54 12/17/17 19:54 99.6 F 12/17/17 19:45 98 H 24 121/79 12/17/17 19:30 100 H 23 119/73 12/17/17 19:15 102 H 19 125/73 12/17/17 19:00 97 H 22 146/95 12/17/17 18:46 91 H 21 146/95 12/17/17 18:45 96 H 146/95 12/17/17 18:30 88 22 147/86 12/17/17 18:15 84 22 138/80 12/17/17 18:00 89 89 22 147/62 12/17/17 17:45 89 22 159/84 12/17/17 17:30 88 19 160/73 12/17/17 17:15 82 19 159/75 12/17/17 17:00 86 23 151/68 12/17/17 16:55 98.6 F 77 19 151/70 12/17/17 16:46 147/71 12/17/17 16:40 80 176/81 12/17/17 16:30 176/81 12/17/17 16:16 84 17 156/85 12/17/17 16:00 98.6 F 85 85 22 160/67 12/17/17 15:46 90 22 145/79 12/17/17 15:30 90 22 146/84 12/17/17 15:24 88 22 12/17/17 15:16 93 H 94 H 21 22 173/86 12/17/17 15:15 94 H 154/83 12/17/17 15:00 88 22 154/83 12/17/17 14:46 84 22 168/92 12/17/17 14:44 91 H 173/86 12/17/17 14:43 95 H 173/86 12/17/17 14:36 81 173/86 12/17/17 14:30 86 22 173/85 12/17/17 14:16 89 22 177/95 12/17/17 14:00 88 88 23 164/88 12/17/17 13:46 81 25 H 164/88 12/17/17 13:30 87 21 171/83 12/17/17 13:16 88 22 171/78 12/17/17 13:00 94 H 22 173/91 12/17/17 12:52 95 H 22 167/75 Pulse Ox Pulse Ox 12/18/17 12:00 98 12/18/17 11:47 12/18/17 11:45 99 12/18/17 11:30 100 12/18/17 11:15 99 12/18/17 11:00 99 12/18/17 10:45 99 12/18/17 10:30 98 12/18/17 10:15 99 12/18/17 10:00 99 12/18/17 09:45 99 12/18/17 09:30 99 12/18/17 09:15 99 12/18/17 09:00 100 12/18/17 08:45 99 12/18/17 08:30 99 12/18/17 08:20 12/18/17 08:15 99 12/18/17 08:00 99 12/18/17 07:45 99 12/18/17 07:30 99 18 07:15 18 07:10 99 18 07:00 18 06:50 12/18/17 06:45 12/18/17 06:30 18 06:15 99 18 06:00 100 18 05:45 100 18 05:31 100 18 05:15 100 18 05:00 99 18 04:45 99 18 04:44 99 18 04:30 99 18 04:15 99 18 04:00 99 12/18/17 03:45 99 18 03:30 99 18 03:15 99 18 03:10 12/18/17 03:00 99 12/18/17 02:45 99 18 02:30 98 18 02:15 99 18 02:00 99 18 01:45 98 18 01:30 99 18 01:15 98 18 01:00 98 18 00:49 100 18 00:45 98 18 00:30 99 18 00:15 99 18 00:06 98 18 00:01 99 18 23:45 99 18 23:40 18 23:31 100 18 23:19 100 18 23:15 100 18 23:00 99 18 22:45 99 18 22:39 18 22:31 99 18 22:15 99 18 22:00 99 18 21:45 98 18 21:31 99 1618 21:15 99 18 21:01 97 18 21:00 18 20:45 97 18 20:37 97 18 20:30 99 18 20:20 98 09/16/18 20:15 99 12/17/17 20:01 94 12/17/17 20:00 12/17/17 19:54 12/17/17 19:45 98 12/17/17 19:30 98 12/17/17 19:15 99 12/17/17 19:00 100 12/17/17 18:46 98 12/17/17 18:45 12/17/17 18:30 99 12/17/17 18:15 100 12/17/17 18:00 99 12/17/17 17:45 99 12/17/17 17:30 99 12/17/17 17:15 99 12/17/17 17:00 99 12/17/17 16:55 99 12/17/17 16:46 99 12/17/17 16:40 99 12/17/17 16:30 99 12/17/17 16:16 99 12/17/17 16:00 99 12/17/17 15:46 99 12/17/17 15:30 99 12/17/17 15:24 12/17/17 15:16 100 12/17/17 15:15 100 12/17/17 15:00 99 12/17/17 14:46 100 12/17/17 14:44 12/17/17 14:43 12/17/17 14:36 12/17/17 14:30 100 12/17/17 14:16 99 12/17/17 14:00 99 12/17/17 13:46 99 12/17/17 13:30 100 12/17/17 13:16 100 12/17/17 13:00 100 12/17/17 12:52 100 - Physical Examination General: Other (intubtaed on mechanical ventilator) HEENT: Positive: PERRL, Normocephaly, Mucus Membranes Moist. Negative: Jaundice Neck: Positive: neck supple, trachea midline, JVD/HJR Cardiac: Positive: Reg Rate and Rhythm Lungs: Positive: Rhonchi (MILD) Neuro: Positive: Grossly Intact Abdomen: Positive: Unremarkable, Active Bowel Sounds Extremities: Present: edema (TR) - Labs and Meds CBC 12/17/17 12/17/17 12/18/17 Range/Units 13:07 17:29 00:28 WBC (4.5-11.0) K/mm3 RBC (3.65-5.03) M/mm3 Hgb 9.3 L 9.8 L 9.9 L (11.8-15.2) gm/dl Hct 27.9 L 29.8 L 29.9 L (35.5-45.6) % Plt Count (140-440) K/mm3 Lymph # (1.2-5.4) K/mm3 [place] # (0.0-0.8) K/mm3 Eos # (0.0-0.4) K/mm3 Baso # (0.0-0.1) K/mm3 12/18/17 Range/Units 05:12 WBC 14.2 H (4.5-11.0) K/mm3 RBC 3.67 (3.65-5.03) M/mm3 Hgb 9.8 L (11.8-15.2) gm/dl Hct 29.7 L (35.5-45.6) % Plt Count 357 (140-440) K/mm3 Lymph # 1.7 (1.2-5.4) K/mm3 [place] # 1.3 H (0.0-0.8) K/mm3 Eos # 0.3 (0.0-0.4) K/mm3 Baso # 0.1 (0.0-0.1) K/mm3 Comprehensive Metabolic Panel 12/18/17 Range/Units 05:12 Sodium 145 (137-145) mmol/L Potassium 4.1 D (3.6-5.0) mmol/L Chloride 102.8 (98-107) mmol/L Carbon Dioxide 19 L (22-30) mmol/L BUN 55 H (9-20) mg/dL Creatinine 6.0 H (0.8-1.5) mg/dL Glucose 112 H (75-100) mg/dL Calcium 9.3 (8.4-10.2) mg/dL - Imaging and Cardiology EKG: report reviewed (Sinus Tachycardia)
--- NOTE | 2017-12-18 13:42 | Gastroenterology Consultation ---
History of Present Illness - Reason for Consult Consult date: 12/18/17 anemia Requesting physician: PAOLA JAY - History of Present Illness Patient is a 67 y/o male with PMH of DM who was brought to ED by EMS for progressive SOB with associated cough. Upon admission he was found to have respiratory failure, cardiomegaly, pulmonary edema, sepsis 2/2 pneumonia, acute renal failure, and severe anemia. He was intubated, transfused with PRBCs, transferred to ICU, and underwent a vascath placement for HD. GI has been consulted for anemia. This morning, patient remains intubated and sedated on vent. Unable to provide history and no family at bedside. History obtained via chart review. No active signs of bleeding per nursing with no hematemesis, melena, or hematochezia. OG tube with non-bloody bilious drainage. Abd CT negative for intra-abdominal bleed. No evidence of abd pain or N/V. Previous GI hx unknown. Past History Past Medical History: diabetes, hypertension, renal failure Past Surgical History: No surgical history Social history: no significant social history Family history: no significant family history Medications and Allergies Allergies Allergy/AdvReac Type Severity Reaction Status Date / Time No Known Allergies Allergy Verified 12/15/17 17:22 Active Meds: Active Medications Acetaminophen (Tylenol) 650 mg PO Q4H PRN PRN Reason: Pain MILD(1-3)/Fever >100.5/[place]ALDAÑA Albuterol (Proventil) 2.5 mg IH Q4HRT PRN PRN Reason: Shortness Of Breath Last Admin: 12/16/17 01:10 Dose: 2.5 mg Albuterol/Ipratropium (Duoneb *Not For Prn Use*) 1 ampul IH TIDRT [facility] Last Admin: 12/18/17 13:37 Dose: 1 ampul Lipase/Protease/Amylase (Pancreaze Dr 10,500 Unit) 1 each FEEDTUBE PRN PRN PRN Reason: For Clogged Feeding Tube Carvedilol (Coreg) 25 mg PO BID [facility] Last Admin: 12/18/17 11:47 Dose: Not Given Hydralazine HCl (Apresoline) 10 mg IV Q6HR PRN PRN Reason: Blood Pressure Last Admin: 12/17/17 14:43 Dose: 10 mg Hydrophilic Ointment (Vaseline Lip Therapy) 1 applic TP Q2HR PRN PRN Reason: Dry Lips Sodium Chloride (Nacl 0.9% 1000 Ml) 1,000 mls @ 75 mls/hr IV DIRECT NIYA Propofol (Diprivan 10 Mg/Ml) 1,000 mg in 100 mls @ 2.313 mls/hr IV TITR [facility]; Protocol Last Admin: 12/18/17 08:42 Dose: 30 mcg/kg/min, 13.88 mls/hr Sodium Chloride (Nacl 0.9%) 100 mls @ 999 mls/hr IV MICHAELA PRN PRN Reason: Hypotension Sodium Chloride (Nacl 0.9%) 100 mls @ 999 mls/hr IV MICHAELA PRN PRN Reason: Hypotension during HD Insulin Human Lispro (Humalog) 0 unit SUB-Q ACHS [facility]; Protocol Last Admin: 12/18/17 11:49 Dose: Not Given Lorazepam (Ativan) 1 mg IV Q4H PRN PRN Reason: Agitation Last Admin: 12/17/17 19:41 Dose: 1 mg Morphine Sulfate (Morphine) 2 mg IV Q4H PRN PRN Reason: Pain, Moderate (4-6) Multi-Ingred Cream/Lotion/Oil/Oint (Artificial Tears Ophth Oint) 1 applic OU Q4HR PRN PRN Reason: Dry Eye(s) Nitroglycerin (Nitro-Bid 2%) 0.5 inch TP BIDNTG [facility]; Protocol Last Admin: 12/18/17 06:50 Dose: 0.5 inch Ondansetron HCl (Zofran) 4 mg IV Q8H PRN PRN Reason: Nausea And Vomiting Pantoprazole Sodium (Protonix) 40 mg IV BID [facility] Last Admin: 12/18/17 11:47 Dose: 40 mg Simple Syrup (Simple Syrup) 15 ml FEEDTUBE PRN PRN PRN Reason: Hypoglycemia Simple Syrup (Simple Syrup) 30 ml FEEDTUBE PRN PRN PRN Reason: Hypoglycemia Sodium Bicarbonate (Sodium Bicarbonate) 325 mg FEEDTUBE PRN PRN PRN Reason: For Clogged Feeding Tube Sodium Chloride (Sodium Chloride Flush Syringe 10 Ml) 10 ml IV BID [facility] Last Admin: 12/18/17 11:48 Dose: 10 ml Sodium Chloride (Sodium Chloride Flush Syringe 10 Ml) 10 ml IV PRN PRN PRN Reason: LINE FLUSH Review of Systems - Review of Systems ROS unobtainable: due to endotracheal tube, due to mental status Exam - Constitutional Vital Signs: Temp Pulse Resp BP Pulse Ox 97.7 F 91 H 22 108/70 99 12/18/17 12:00 12/18/17 13:37 12/18/17 13:37 12/18/17 12:00 12/18/17 12:00 General appearance: no acute distress, other (intubated and sedated on vent) - EENT ENT: other (+OG tube (bilious drainage)) - Respiratory Respiratory: bilateral: diminished - Cardiovascular Rhythm: regular Heart Sounds: Present: S1 & S2 - Gastrointestinal General gastrointestinal: Present: soft, distended (slightly), normal bowel sounds - Labs CBC & Chem 7: 12/18/17 05:12 12/18/17 05:12 Lab Results: Laboratory Results - last 24 hr 12/17/1718 12/18/17 17:15 17:29 00:03 WBC RBC Hgb 9.8 L Hct 29.8 L MCV MCH MCHC RDW Plt Count Lymph % (Auto) [place] % (Auto) Eos % (Auto) Baso % (Auto) Lymph # [place] # Eos # Baso # Seg Neutrophils % Seg Neutrophils # POC ABG pH POC ABG pCO2 POC ABG pO2 POC ABG HCO3 POC ABG Total CO2 POC ABG O2 Sat POC ABG Base Excess FiO2 Sodium Potassium Chloride Carbon Dioxide Anion Gap BUN Creatinine Estimated GFR BUN/Creatinine Ratio Glucose POC Glucose 158 H 109 H Calcium 12/18/17 12/18/17 12/18/17 00:28 04:44 05:12 WBC 14.2 H RBC 3.67 Hgb 9.9 L 9.8 L Hct 29.9 L 29.7 L MCV 81 L MCH 27 L MCHC 33 RDW 18.8 H Plt Count 357 Lymph % (Auto) 12.3 L [place] % (Auto) 9.4 H Eos % (Auto) 2.3 Baso % (Auto) 0.5 Lymph # 1.7 [place] # 1.3 H Eos # 0.3 Baso # 0.1 Seg Neutrophils % 75.5 H Seg Neutrophils # 10.7 H POC ABG pH 7.497 H POC ABG pCO2 27.0 L POC ABG pO2 136 H POC ABG HCO3 20.9 POC ABG Total CO2 22 POC ABG O2 Sat 99 POC ABG Base Excess -2 FiO2 40 Sodium Potassium Chloride Carbon Dioxide Anion Gap BUN Creatinine Estimated GFR BUN/Creatinine Ratio Glucose POC Glucose Calcium 12/18/17 12/18/17 05:12 05:15 WBC RBC Hgb Hct MCV MCH MCHC RDW Plt Count Lymph % (Auto) [place] % (Auto) Eos % (Auto) Baso % (Auto) Lymph # [place] # Eos # Baso # Seg Neutrophils % Seg Neutrophils # POC ABG pH POC ABG pCO2 POC ABG pO2 POC ABG HCO3 POC ABG Total CO2 POC ABG O2 Sat POC ABG Base Excess FiO2 Sodium 145 Potassium 4.1 D Chloride 102.8 Carbon Dioxide 19 L Anion Gap 27 BUN 55 H Creatinine 6.0 H Estimated GFR 9 BUN/Creatinine Ratio 9 Glucose 112 H POC Glucose 100 Calcium 9.3 Assessment and Plan 1.anemia -CT negative for intra-abdominal bleed -iron 37 (TIBC, ferritin, folate, and B12-WNL) -HGB 4.9/16.0 on admission now 9.8/29.7 s/p transfusions- stable -continue to monitor H/H and transfuse as needed -no active signs of bleeding -etiology unclear -will most likely need endoscopic evaluation with EGD/colonoscopy in the future once medically stable (no plans for scope at this time, unless overt bleeding develops) -will order stool for occult blood -continue PPI -avoid NSAIDs -okay to start feedings -continue supportive care -will follow
--- NOTE | 2017-12-18 14:57 | Progress Note ---
Assessment and Plan Acute respiratory failure with hypoxia -s/p intubation, on MV -Off steroids -ABG improved -pulmonology following Sepsis likely from PNA -cont IV abx -blood cultures negative so far Bilateral pneumonia -on IV Zosyn and Vanco -blood and sputum culture neg BALDO 2/2 acute on chronic cardio renal syndrome, ischemic ATN in the setting of severe anemia and sepsis -H/O CKD suspected -on HD s/p vascath placement -Neprology following Hyperkalemia, now hypokalemia -will monitor level and replete as needed Elevated d-dimer -VQ scan pending Severe anemia, probably sec to CKD/ESRD -s/p blood transfusion with 4 units of PRBC -Patient is to receive additional 2u of PRBC today -s/p CT abdomen and pelvis to assess for acute bleed, but no active source per GI -We will cont to monitor posttransfusion H&H Acute exacerbation of CHF (congestive heart failure), suspected -2d ECHO report showed EF 40-45% -cont volume removal by increased Ultrafiltration Elevated troponin probably secondary to demand ischemia -Cardiology following HTN -Coreg and PRN hydralazine started -monitor and adjust med as needed DVT prophylaxis on Heparin and GI prophylaxis on Protonix Disposition: Patient remains in critical condition, continue current management Brief history: This is a 67 yo M with unknown past medical history, who was brought in to ER by EMS for progressive shortness of breath, associated with productive cough. As per EMS reports, Pt was placed on 100% nonrebreather and brought to the ER. CXR showed evidence of cardiomegaly and pulmonary edema, and since pt developed worsening respiratory failure with hypercapnia/hypoxia pt required intubation. Labs showed elevated WBC > 17, severe anemia with Hb as low as 4.9, elevated BUN/Cr at 76/7.1mg/dl along with hyperkalemia and metabolic acidosis. He was transfused and vascath placed for HD per renal. Hospitalist Physical exam: GENERAL: elderly male lying on bed, sedated. HEENT: Normocephalic. Atraumatic. No conjunctival congestion or icterus. Patient has moist mucous membranes. NECK: Supple. Trachea midline. CHEST/LUNGS: Clear to auscultated bilaterally, Intubated HEART/CARDIOVASCULAR: Regular in rate and rhythm. S1 and S2 positive. ABDOMEN: Abdomen is soft, nontender. Patient has normal bowel sounds. SKIN: There is no rash. Warm and dry. NEURO: sedated MUSCULOSKELETAL: No joint effusion or tenderness. EXTRIMITY: No edema, no cyanosis or clubbing. PSYCH: unable to assess Subjective Date of service: 12/18/17 Principal diagnosis: BALDO on CKD Interval history: Patient seen and examined. Medical records and medication list reviewed. No acute event overnight noted by the RN. Patient currently intubated and sedated Objective - Constitutional Vitals: Vital Signs - 12hr 12/18/17 12/18/17 12/18/17 03:00 03:10 03:15 Temperature 98.7 F Pulse Rate 91 H 90 Pulse Rate [ Anterior Bilateral Throughout] Pulse Rate [ From Monitor] Respiratory 22 22 Rate Respiratory Rate [Anterior Bilateral Throughout] Blood Pressure 115/80 120/73 O2 Sat by Pulse 99 99 Oximetry 12/18/17 12/18/17 12/18/17 03:30 03:45 04:00 Temperature Pulse Rate 91 H 91 H 85 Pulse Rate [ Anterior Bilateral Throughout] Pulse Rate [ From Monitor] Respiratory 22 22 22 Rate Respiratory Rate [Anterior Bilateral Throughout] Blood Pressure 112/67 120/65 121/58 O2 Sat by Pulse 99 99 99 Oximetry 12/18/17 12/18/17 12/18/17 04:15 04:30 04:44 Temperature Pulse Rate 90 91 H 87 Pulse Rate [ Anterior Bilateral Throughout] Pulse Rate [ From Monitor] Respiratory 22 22 Rate Respiratory Rate [Anterior Bilateral Throughout] Blood Pressure 115/76 123/77 135/73 O2 Sat by Pulse 99 99 99 Oximetry 12/18/17 12/18/17 12/18/17 04:45 05:00 05:15 Temperature Pulse Rate 85 88 84 Pulse Rate [ Anterior Bilateral Throughout] Pulse Rate [ From Monitor] Respiratory 22 22 22 Rate Respiratory Rate [Anterior Bilateral Throughout] Blood Pressure 135/73 121/76 146/84 O2 Sat by Pulse 99 99 100 Oximetry 12/18/17 12/18/17 12/18/17 05:31 05:45 06:00 Temperature Pulse Rate 85 88 87 Pulse Rate [ Anterior Bilateral Throughout] Pulse Rate [ From Monitor] Respiratory 22 22 22 Rate Respiratory Rate [Anterior Bilateral Throughout] Blood Pressure 130/68 116/68 120/74 O2 Sat by Pulse 100 100 100 Oximetry 12/18/17 12/18/17 12/18/17 06:15 06:30 06:45 Temperature Pulse Rate 88 87 87 Pulse Rate [ Anterior Bilateral Throughout] Pulse Rate [ From Monitor] Respiratory 22 22 22 Rate Respiratory Rate [Anterior Bilateral Throughout] Blood Pressure 123/71 141/87 125/74 O2 Sat by Pulse 99 Oximetry 12/18/17 12/18/17 12/18/17 06:50 07:00 07:10 Temperature Pulse Rate 87 87 86 Pulse Rate [ Anterior Bilateral Throughout] Pulse Rate [ From Monitor] Respiratory 22 Rate Respiratory Rate [Anterior Bilateral Throughout] Blood Pressure 125/74 124/83 116/74 O2 Sat by Pulse 99 Oximetry 12/18/17 12/18/17 12/18/17 07:15 07:30 07:45 Temperature Pulse Rate 93 H 86 81 Pulse Rate [ Anterior Bilateral Throughout] Pulse Rate [ From Monitor] Respiratory 21 22 22 Rate Respiratory Rate [Anterior Bilateral Throughout] Blood Pressure 116/74 136/71 133/77 O2 Sat by Pulse 99 99 Oximetry 12/18/17 12/18/17 12/18/17 08:00 08:15 08:20 Temperature 99.1 F Pulse Rate 84 85 Pulse Rate [ 83 88 Anterior Bilateral Throughout] Pulse Rate [ 99 H From Monitor] Respiratory 22 22 Rate Respiratory 22 22 Rate [Anterior Bilateral Throughout] Blood Pressure 129/84 142/86 O2 Sat by Pulse 99 99 Oximetry 12/18/17 12/18/17 12/18/17 08:30 08:45 09:00 Temperature Pulse Rate 91 H 91 H 93 H Pulse Rate [ Anterior Bilateral Throughout] Pulse Rate [ From Monitor] Respiratory 21 22 21 Rate Respiratory Rate [Anterior Bilateral Throughout] Blood Pressure 145/89 132/86 132/86 O2 Sat by Pulse 99 99 100 Oximetry 12/18/17 12/18/17 12/18/17 09:15 09:30 09:45 Temperature Pulse Rate 96 H 97 H 96 H Pulse Rate [ Anterior Bilateral Throughout] Pulse Rate [ From Monitor] Respiratory 22 22 22 Rate Respiratory Rate [Anterior Bilateral Throughout] Blood Pressure 120/76 117/76 119/78 O2 Sat by Pulse 99 99 99 Oximetry 12/18/17 12/18/17 12/18/17 10:00 10:15 10:30 Temperature Pulse Rate 97 H 95 H 95 H Pulse Rate [ Anterior Bilateral Throughout] Pulse Rate [ From Monitor] Respiratory 22 22 22 Rate Respiratory Rate [Anterior Bilateral Throughout] Blood Pressure 115/74 117/75 106/67 O2 Sat by Pulse 99 99 98 Oximetry 12/18/17 12/18/17 12/18/17 10:45 11:00 11:15 Temperature Pulse Rate 95 H 92 H 92 H Pulse Rate [ Anterior Bilateral Throughout] Pulse Rate [ From Monitor] Respiratory 22 22 22 Rate Respiratory Rate [Anterior Bilateral Throughout] Blood Pressure 128/87 122/85 117/87 O2 Sat by Pulse 99 99 99 Oximetry 12/18/17 12/18/17 12/18/17 11:30 11:45 11:47 Temperature Pulse Rate 93 H 93 H 93 H Pulse Rate [ Anterior Bilateral Throughout] Pulse Rate [ From Monitor] Respiratory 22 22 Rate Respiratory Rate [Anterior Bilateral Throughout] Blood Pressure 125/90 140/89 140/89 O2 Sat by Pulse 100 99 Oximetry 12/18/17 12/18/17 12/18/17 12:00 12:15 12:30 Temperature 97.7 F Pulse Rate 92 H 92 H 87 Pulse Rate [ Anterior Bilateral Throughout] Pulse Rate [ 92 H From Monitor] Respiratory 22 22 18 Rate Respiratory Rate [Anterior Bilateral Throughout] Blood Pressure 108/70 122/77 122/59 O2 Sat by Pulse 98 99 98 Oximetry 12/18/17 12/18/17 12/18/17 12:45 13:00 13:15 Temperature Pulse Rate 90 88 91 H Pulse Rate [ Anterior Bilateral Throughout] Pulse Rate [ From Monitor] Respiratory 22 22 22 Rate Respiratory Rate [Anterior Bilateral Throughout] Blood Pressure 116/77 116/77 132/84 O2 Sat by Pulse 99 99 100 Oximetry 12/18/17 12/18/17 12/18/17 13:30 13:37 13:45 Temperature Pulse Rate 90 91 H Pulse Rate [ 91 H Anterior Bilateral Throughout] Pulse Rate [ From Monitor] Respiratory 22 22 Rate Respiratory 22 Rate [Anterior Bilateral Throughout] Blood Pressure 129/75 129/74 O2 Sat by Pulse 99 99 Oximetry 12/18/17 12/18/17 12/18/17 13:51 13:55 14:00 Temperature Pulse Rate 88 88 Pulse Rate [ 91 H Anterior Bilateral Throughout] Pulse Rate [ From Monitor] Respiratory 22 Rate Respiratory 22 Rate [Anterior Bilateral Throughout] Blood Pressure 129/74 141/84 O2 Sat by Pulse 100 Oximetry - Labs CBC & Chem 7: 12/19/17 05:10 12/19/17 05:10 Labs: Abnormal lab results 12/17/17 12/17/17 12/18/17 Range/Units 17:15 17:29 00:03 WBC (4.5-11.0) K/mm3 Hgb 9.8 L (11.8-15.2) gm/dl Hct 29.8 L (35.5-45.6) % MCV (84-94) fl MCH (28-32) pg RDW (13.2-15.2) % Lymph % (Auto) (13.4-35.0) % [place] % (Auto) (0.0-7.3) % [place] # (0.0-0.8) K/mm3 Seg Neutrophils % (40.0-70.0) % Seg Neutrophils # (1.8-7.7) K/mm3 POC ABG pH (7.35-7.45) POC ABG pCO2 (35-45) POC ABG pO2 (80-105) Carbon Dioxide (22-30) mmol/L BUN (9-20) mg/dL Creatinine (0.8-1.5) mg/dL Glucose (75-100) mg/dL POC Glucose 158 H 109 H (70-105) 12/18/17 12/18/17 12/18/17 Range/Units 00:28 04:44 05:12 WBC 14.2 H (4.5-11.0) K/mm3 Hgb 9.9 L 9.8 L (11.8-15.2) gm/dl Hct 29.9 L 29.7 L (35.5-45.6) % MCV 81 L (84-94) fl MCH 27 L (28-32) pg RDW 18.8 H (13.2-15.2) % Lymph % (Auto) 12.3 L (13.4-35.0) % [place] % (Auto) 9.4 H (0.0-7.3) % [place] # 1.3 H (0.0-0.8) K/mm3 Seg Neutrophils % 75.5 H (40.0-70.0) % Seg Neutrophils # 10.7 H (1.8-7.7) K/mm3 POC ABG pH 7.497 H (7.35-7.45) POC ABG pCO2 27.0 L (35-45) POC ABG pO2 136 H (80-105) Carbon Dioxide (22-30) mmol/L BUN (9-20) mg/dL Creatinine (0.8-1.5) mg/dL Glucose (75-100) mg/dL POC Glucose (70-105) 12/18/17 Range/Units 05:12 WBC (4.5-11.0) K/mm3 Hgb (11.8-15.2) gm/dl Hct (35.5-45.6) % MCV (84-94) fl MCH (28-32) pg RDW (13.2-15.2) % Lymph % (Auto) (13.4-35.0) % [place] % (Auto) (0.0-7.3) % [place] # (0.0-0.8) K/mm3 Seg Neutrophils % (40.0-70.0) % Seg Neutrophils # (1.8-7.7) K/mm3 POC ABG pH (7.35-7.45) POC ABG pCO2 (35-45) POC ABG pO2 (80-105) Carbon Dioxide 19 L (22-30) mmol/L BUN 55 H (9-20) mg/dL Creatinine 6.0 H (0.8-1.5) mg/dL Glucose 112 H (75-100) mg/dL POC Glucose (70-105)
[2017-12-19] MEDS: SODIUM CHLORIDE FLUSH SYRINGE 10 ML IV SCH ×2 (00:58→09:54)
[2017-12-19] MEDS: DIPRIVAN 10 MG/ML 1,000 MG/100 ML BOTTLE IV SCH (01:24)
--- NOTE | 2017-12-19 04:08 | XRay Report ---
FINAL REPORT PROCEDURE: XR CHEST 1V AP TECHNIQUE: Chest radiograph anteroposterior view. CPT 29111 HISTORY: follow up respiratory failure COMPARISON: No prior studies are available for comparison. FINDINGS: Heart: The heart size is normal to slightly enlarged Mediastinum/Vessels: Normal. Lungs/Pleural space: Lungs are expanded. There are no infiltrates, effusions or pneumothoraces.. Bony thorax: No acute osseous abnormality. Life support devices: Endotracheal tube is the mid trachea. NG tube is in the stomach.. IMPRESSION: The heart size is normal to slightly enlarged Lungs are expanded. There are no infiltrates, effusions or pneumothoraces.. Endotracheal tube is the mid trachea. NG tube is in the stomach.. .
[2017-12-19] MEDS: APRESOLINE IV PRN ×2 (04:42→17:01)
[2017-12-19 05:54] LABS: Hematocrit 30.1 % (35.5-45.6); Hemoglobin 9.5 gm/dl (11.8-15.2); Mean Corpuscular HGB Conc 32 % (32-34); Mean Corpuscular Hemoglobin 26 pg (28-32); Mean Corpuscular Volume 82 fl (84-94); Platelet Count 354 K/mm3 (140-440); Red Blood Count 3.66 M/mm3 (3.65-5.03)
[2017-12-19 06:21] LABS: Calcium 9.3 mg/dL (8.4-10.2)
[2017-12-19] MEDS: NITRO-BID 2% TP SCH ×2 (06:47→14:49)
[2017-12-19] MEDS: HumaLOG SUB-Q SCH ×4 (08:04→23:08)
[2017-12-19] MEDS: DUONEB *Not for PRN Use IH SCH ×3 (08:15→20:02)
--- NOTE | 2017-12-19 08:38 | Progress Note ---
Assessment and Plan - Patient Problems (1) Acute kidney injury superimposed on chronic kidney disease Current Visit: Yes Status: Acute Plan to address problem: Patient presumably has chronic kidney disease given the echogenic kidneys and nephrotic range proteinuria. Question chronic Glomerulonephritis. Acute kidney injury probably acute tubular necrosis versus acute on chronic cardiorenal syndrome. Patient tolerated dialysis with improvement in volume status. Hemodialysis today and possibly again tomorrow if azotemia still significant. Arrangements for outpatient dialysis ongoing (2) Acute heart failure Current Visit: Yes Status: Acute Plan to address problem: Volume status improved with dialysis. Ejection fraction 40-45% on 2-D echo (3) Hypertensive chronic kidney disease with stage 5 chronic kidney disease or end stage renal disease Current Visit: Yes Status: Acute Plan to address problem: Follow-up blood pressure on current medications (4) Acidosis, metabolic Current Visit: Yes Status: Acute Plan to address problem: Improving with dialysis (5) Severe anemia Current Visit: Yes Status: Chronic Plan to address problem: Hemoglobin improved with packed Red blood cell transfusions. Follow-up hemoglobin (6) Acute respiratory failure with hypoxia Current Visit: Yes Status: Acute Plan to address problem: Weaning per pulmonary. Subjective Date of service: 12/19/17 Principal diagnosis: BALDO on CKD Interval history: Patient seen lying in bed in intensive care unit. He is intubated on ventilator. He is not on any vasopressors. He is on Diprivan Objective - Exam Narrative Exam: Elderly male lying in bed intubated on ventilator HEENT: NCAT, endotracheal tube intact Neck: Supple, no venous distention CVS: S1S2 RRR with no murmur, rub or gallop Chest: Clear to auscultation Abdomen: Protuberant, soft, nontender, no organomegaly, bowel sounds are present Extremities: No edema Skin warm and dry, no rash Neuro: Sedated, intubated - Vital Signs Vital signs: Vital Signs - 12hr 12/18/17 12/18/17 12/18/17 20:45 21:00 21:15 Temperature Pulse Rate 88 86 85 Pulse Rate [ Anterior Bilateral Throughout] Respiratory 20 22 22 Rate Respiratory Rate [Anterior Bilateral Throughout] Blood Pressure 127/86 133/81 138/86 O2 Sat by Pulse 99 99 99 Oximetry 12/18/17 12/18/17 12/18/17 21:31 21:45 21:57 Temperature Pulse Rate 91 H 90 86 Pulse Rate [ Anterior Bilateral Throughout] Respiratory 22 24 Rate Respiratory Rate [Anterior Bilateral Throughout] Blood Pressure 120/78 133/81 139/86 O2 Sat by Pulse 100 99 Oximetry 12/18/17 12/18/17 12/18/17 22:00 22:15 22:30 Temperature Pulse Rate 82 84 86 Pulse Rate [ Anterior Bilateral Throughout] Respiratory 22 22 22 Rate Respiratory Rate [Anterior Bilateral Throughout] Blood Pressure 143/91 149/82 142/85 O2 Sat by Pulse 99 100 100 Oximetry 12/18/17 12/18/17 12/18/17 22:45 22:58 23:00 Temperature Pulse Rate 87 83 84 Pulse Rate [ Anterior Bilateral Throughout] Respiratory 22 22 22 Rate Respiratory Rate [Anterior Bilateral Throughout] Blood Pressure 133/76 133/76 132/79 O2 Sat by Pulse 100 100 99 Oximetry 12/18/17 12/18/17 12/18/17 23:01 23:08 23:15 Temperature Pulse Rate 85 84 81 Pulse Rate [ Anterior Bilateral Throughout] Respiratory 22 22 Rate Respiratory Rate [Anterior Bilateral Throughout] Blood Pressure 132/79 132/79 132/78 O2 Sat by Pulse 100 100 99 Oximetry 12/18/17 12/18/17 12/19/17 23:30 23:45 00:00 Temperature 97.6 F Pulse Rate 79 77 73 Pulse Rate [ Anterior Bilateral Throughout] Respiratory 22 21 22 Rate Respiratory Rate [Anterior Bilateral Throughout] Blood Pressure 135/79 133/66 120/65 O2 Sat by Pulse 99 99 99 Oximetry 12/19/17 12/19/17 12/19/17 00:15 00:30 00:45 Temperature Pulse Rate 71 72 67 Pulse Rate [ Anterior Bilateral Throughout] Respiratory 22 22 22 Rate Respiratory Rate [Anterior Bilateral Throughout] Blood Pressure 120/71 119/74 116/71 O2 Sat by Pulse 100 100 100 Oximetry 12/19/17 12/19/17 12/19/17 01:00 01:15 01:30 Temperature Pulse Rate 71 72 70 Pulse Rate [ Anterior Bilateral Throughout] Respiratory 22 22 22 Rate Respiratory Rate [Anterior Bilateral Throughout] Blood Pressure 134/67 143/68 133/77 O2 Sat by Pulse 100 99 100 Oximetry 12/19/17 12/19/17 12/19/17 01:45 02:00 02:15 Temperature Pulse Rate 71 70 76 Pulse Rate [ Anterior Bilateral Throughout] Respiratory 22 22 22 Rate Respiratory Rate [Anterior Bilateral Throughout] Blood Pressure 146/84 152/77 136/77 O2 Sat by Pulse 100 99 100 Oximetry 12/19/17 12/19/17 12/19/17 02:30 02:45 03:00 Temperature Pulse Rate 76 72 71 Pulse Rate [ Anterior Bilateral Throughout] Respiratory 22 17 22 Rate Respiratory Rate [Anterior Bilateral Throughout] Blood Pressure 141/74 141/74 148/77 O2 Sat by Pulse 98 100 99 Oximetry 12/19/17 12/19/17 12/19/17 03:15 03:30 03:45 Temperature Pulse Rate 68 73 70 Pulse Rate [ Anterior Bilateral Throughout] Respiratory 22 22 22 Rate Respiratory Rate [Anterior Bilateral Throughout] Blood Pressure 166/76 152/83 154/73 O2 Sat by Pulse 99 98 99 Oximetry 12/19/17 12/19/17 12/19/17 04:00 04:15 04:30 Temperature 98.4 F Pulse Rate 70 68 71 Pulse Rate [ Anterior Bilateral Throughout] Respiratory 22 22 22 Rate Respiratory Rate [Anterior Bilateral Throughout] Blood Pressure 160/83 156/76 161/73 O2 Sat by Pulse 99 100 100 Oximetry 12/19/17 12/19/17 12/19/17 04:45 04:59 05:00 Temperature Pulse Rate 73 73 72 Pulse Rate [ Anterior Bilateral Throughout] Respiratory 22 21 Rate Respiratory Rate [Anterior Bilateral Throughout] Blood Pressure 144/78 138/69 138/68 O2 Sat by Pulse 99 99 99 Oximetry 12/19/17 12/19/17 12/19/17 05:15 05:30 05:45 Temperature Pulse Rate 77 84 84 Pulse Rate [ Anterior Bilateral Throughout] Respiratory 14 21 15 Rate Respiratory Rate [Anterior Bilateral Throughout] Blood Pressure 150/67 146/77 150/69 O2 Sat by Pulse 99 99 100 Oximetry 12/19/17 12/19/17 12/19/17 06:00 06:15 06:30 Temperature Pulse Rate 77 80 82 Pulse Rate [ Anterior Bilateral Throughout] Respiratory 21 23 22 Rate Respiratory Rate [Anterior Bilateral Throughout] Blood Pressure 159/75 159/77 151/71 O2 Sat by Pulse 99 100 99 Oximetry 12/19/17 12/19/17 12/19/17 06:45 06:47 07:00 Temperature Pulse Rate 88 87 90 Pulse Rate [ Anterior Bilateral Throughout] Respiratory 17 15 Rate Respiratory Rate [Anterior Bilateral Throughout] Blood Pressure 144/71 144/71 144/71 O2 Sat by Pulse 99 99 Oximetry 12/19/17 12/19/17 12/19/17 07:15 07:30 07:36 Temperature Pulse Rate 93 H 94 H Pulse Rate [ Anterior Bilateral Throughout] Respiratory 17 17 Rate Respiratory Rate [Anterior Bilateral Throughout] Blood Pressure 145/72 136/75 O2 Sat by Pulse 99 97 99 Oximetry 12/19/17 12/19/17 12/19/17 08:00 08:12 08:16 Temperature 98.7 F Pulse Rate 90 Pulse Rate [ 88 Anterior Bilateral Throughout] Respiratory Rate Respiratory 22 Rate [Anterior Bilateral Throughout] Blood Pressure 108/63 O2 Sat by Pulse 99 Oximetry 12/19/17 08:27 Temperature Pulse Rate Pulse Rate [ 88 Anterior Bilateral Throughout] Respiratory Rate Respiratory 22 Rate [Anterior Bilateral Throughout] Blood Pressure O2 Sat by Pulse Oximetry - Lab 12/19/17 05:10 12/19/17 05:10 Most recent lab results Calcium 9.3 mg/dL (8.4-10.2) 12/19/17 05:10 Phosphorus 11.90 mg/dL (2.5-4.5) H 12/19/17 05:10 Urine Creatinine 81.7 mg/dL (0.1-20.0) H 12/16/17 12:05 Urine Sodium 62 mmol/L 12/16/17 12:05 Urine Total Protein 493 mg/dL (5-11.8) H 12/16/17 12:05
--- NOTE | 2017-12-19 09:13 | Progress Note ---
Assessment and Plan Acute respiratory failure secondary to pulmonary edema. Controlled per last chest x-ray Pulmonary edema likely from acute renal failure Endstage renal disease Hyperkalemia. Controlled Anemia. Currently off heparin, see GI reevaluation Recommendations GI evaluation appreciated, monitor abdominal findings closely. Abdominal scan without major findings PPI therapy Decrease PEEP level as tolerated, consider to move to SBT next Monitor electrolytes DVT prophylaxis. Renal care, hemodialysis as needed per nephrology. Critical care time was 31 minutes of [id number] evaluation and coordination of care Subjective Date of service: 12/19/17 Principal diagnosis: BALDO on CKD Interval history: Sedated and intubated Objective Vital Signs - 12hr 12/18/17 12/18/17 12/18/17 21:15 21:31 21:45 Temperature Pulse Rate 85 91 H 90 Pulse Rate [ Anterior Bilateral Throughout] Respiratory 22 22 24 Rate Respiratory Rate [Anterior Bilateral Throughout] Blood Pressure 138/86 120/78 133/81 O2 Sat by Pulse 99 100 99 Oximetry 12/18/17 12/18/17 12/18/17 21:57 22:00 22:15 Temperature Pulse Rate 86 82 84 Pulse Rate [ Anterior Bilateral Throughout] Respiratory 22 22 Rate Respiratory Rate [Anterior Bilateral Throughout] Blood Pressure 139/86 143/91 149/82 O2 Sat by Pulse 99 100 Oximetry 12/18/17 12/18/17 12/18/17 22:30 22:45 22:58 Temperature Pulse Rate 86 87 83 Pulse Rate [ Anterior Bilateral Throughout] Respiratory 22 22 22 Rate Respiratory Rate [Anterior Bilateral Throughout] Blood Pressure 142/85 133/76 133/76 O2 Sat by Pulse 100 100 100 Oximetry 12/18/17 12/18/17 12/18/17 23:00 23:01 23:08 Temperature Pulse Rate 84 85 84 Pulse Rate [ Anterior Bilateral Throughout] Respiratory 22 22 Rate Respiratory Rate [Anterior Bilateral Throughout] Blood Pressure 132/79 132/79 132/79 O2 Sat by Pulse 99 100 100 Oximetry 12/18/17 12/18/17 12/18/17 23:15 23:30 23:45 Temperature Pulse Rate 81 79 77 Pulse Rate [ Anterior Bilateral Throughout] Respiratory 22 22 21 Rate Respiratory Rate [Anterior Bilateral Throughout] Blood Pressure 132/78 135/79 133/66 O2 Sat by Pulse 99 99 99 Oximetry 12/19/17 12/19/17 12/19/17 00:00 00:15 00:30 Temperature 97.6 F Pulse Rate 73 71 72 Pulse Rate [ Anterior Bilateral Throughout] Respiratory 22 22 22 Rate Respiratory Rate [Anterior Bilateral Throughout] Blood Pressure 120/65 120/71 119/74 O2 Sat by Pulse 99 100 100 Oximetry 12/19/17 12/19/17 12/19/17 00:45 01:00 01:15 Temperature Pulse Rate 67 71 72 Pulse Rate [ Anterior Bilateral Throughout] Respiratory 22 22 22 Rate Respiratory Rate [Anterior Bilateral Throughout] Blood Pressure 116/71 134/67 143/68 O2 Sat by Pulse 100 100 99 Oximetry 12/19/17 12/19/17 12/19/17 01:30 01:45 02:00 Temperature Pulse Rate 70 71 70 Pulse Rate [ Anterior Bilateral Throughout] Respiratory 22 22 22 Rate Respiratory Rate [Anterior Bilateral Throughout] Blood Pressure 133/77 146/84 152/77 O2 Sat by Pulse 100 100 99 Oximetry 12/19/17 12/19/17 12/19/17 02:15 02:30 02:45 Temperature Pulse Rate 76 76 72 Pulse Rate [ Anterior Bilateral Throughout] Respiratory 22 22 17 Rate Respiratory Rate [Anterior Bilateral Throughout] Blood Pressure 136/77 141/74 141/74 O2 Sat by Pulse 100 98 100 Oximetry 12/19/17 12/19/17 12/19/17 03:00 03:15 03:30 Temperature Pulse Rate 71 68 73 Pulse Rate [ Anterior Bilateral Throughout] Respiratory 22 22 22 Rate Respiratory Rate [Anterior Bilateral Throughout] Blood Pressure 148/77 166/76 152/83 O2 Sat by Pulse 99 99 98 Oximetry 12/19/17 12/19/17 12/19/17 03:45 04:00 04:15 Temperature 98.4 F Pulse Rate 70 70 68 Pulse Rate [ Anterior Bilateral Throughout] Respiratory 22 22 22 Rate Respiratory Rate [Anterior Bilateral Throughout] Blood Pressure 154/73 160/83 156/76 O2 Sat by Pulse 99 99 100 Oximetry 12/19/17 12/19/17 12/19/17 04:30 04:45 04:59 Temperature Pulse Rate 71 73 73 Pulse Rate [ Anterior Bilateral Throughout] Respiratory 22 22 Rate Respiratory Rate [Anterior Bilateral Throughout] Blood Pressure 161/73 144/78 138/69 O2 Sat by Pulse 100 99 99 Oximetry 12/19/17 12/19/17 12/19/17 05:00 05:15 05:30 Temperature Pulse Rate 72 77 84 Pulse Rate [ Anterior Bilateral Throughout] Respiratory 21 14 21 Rate Respiratory Rate [Anterior Bilateral Throughout] Blood Pressure 138/68 150/67 146/77 O2 Sat by Pulse 99 99 99 Oximetry 12/19/17 12/19/17 12/19/17 05:45 06:00 06:15 Temperature Pulse Rate 84 77 80 Pulse Rate [ Anterior Bilateral Throughout] Respiratory 15 21 23 Rate Respiratory Rate [Anterior Bilateral Throughout] Blood Pressure 150/69 159/75 159/77 O2 Sat by Pulse 100 99 100 Oximetry 12/19/17 12/19/17 12/19/17 06:30 06:45 06:47 Temperature Pulse Rate 82 88 87 Pulse Rate [ Anterior Bilateral Throughout] Respiratory 22 17 Rate Respiratory Rate [Anterior Bilateral Throughout] Blood Pressure 151/71 144/71 144/71 O2 Sat by Pulse 99 99 Oximetry 12/19/17 12/19/17 12/19/17 07:00 07:15 07:30 Temperature Pulse Rate 90 93 H 94 H Pulse Rate [ Anterior Bilateral Throughout] Respiratory 15 17 17 Rate Respiratory Rate [Anterior Bilateral Throughout] Blood Pressure 144/71 145/72 136/75 O2 Sat by Pulse 99 99 97 Oximetry 12/19/17 12/19/17 12/19/17 07:36 07:45 08:00 Temperature 98.7 F Pulse Rate 93 H Pulse Rate [ Anterior Bilateral Throughout] Respiratory 22 Rate Respiratory Rate [Anterior Bilateral Throughout] Blood Pressure 122/73 O2 Sat by Pulse 99 98 Oximetry 12/19/17 12/19/17 12/19/17 08:01 08:12 08:15 Temperature Pulse Rate 94 H 90 89 Pulse Rate [ Anterior Bilateral Throughout] Respiratory 22 22 Rate Respiratory Rate [Anterior Bilateral Throughout] Blood Pressure 108/63 108/63 119/70 O2 Sat by Pulse 97 99 98 Oximetry 12/19/17 12/19/17 12/19/17 08:16 08:27 08:30 Temperature Pulse Rate 88 Pulse Rate [ 88 88 Anterior Bilateral Throughout] Respiratory 22 Rate Respiratory 22 22 Rate [Anterior Bilateral Throughout] Blood Pressure 116/73 O2 Sat by Pulse 98 Oximetry 12/19/17 08:45 Temperature Pulse Rate 89 Pulse Rate [ Anterior Bilateral Throughout] Respiratory 22 Rate Respiratory Rate [Anterior Bilateral Throughout] Blood Pressure 125/79 O2 Sat by Pulse 98 Oximetry Constitutional: no acute distress, other (sedated ) ENT: other (orally intubated and sedated, critically ill. Right central in position) Neck: supple Effort: normal Ascultation: Bilateral: clear, diminished breath sounds, rales (right greater than left) Percussion: Bilateral: not dull Cardiovascular: regular rate and rhythm Gastrointestinal: normoactive bowel sounds, soft, tender, other (no rebound tenderness, bowel sounds present) Integumentary: normal Extremities: no edema, pink and warm, pulses normal Neurologic: non-focal exam, pupils equal and round, other (sedated but responsive with stimulated. ROSS -1 -2) CBC and BMP: 12/19/17 05:10 12/19/17 05:10 ABG, PT/INR, D-dimer: ABG POC ABG pH 7.433 (7.35-7.45) 12/19/17 05:01 POC ABG pCO2 29.8 (35-45) L 12/19/17 05:01 POC ABG pO2 116 (80-105) H 12/19/17 05:01 POC ABG HCO3 19.9 12/19/17 05:01 POC ABG Total CO2 21 12/19/17 05:01 POC ABG O2 Sat 99 12/19/17 05:01 PT/INR, D-dimer D-Dimer 1108.83 ng/mlDDU (0-234) H 12/15/17 17:16 Abnormal lab findings: Abnormal Labs 12/15/17 12/15/17 12/15/17 17:16 17:16 17:16 WBC 16.7 H RBC 2.12 L Hgb 4.9 L* Hct 16.0 L* MCV 76 L MCH 23 L MCHC 30 L RDW 17.3 H Plt Count 445 H Lymph % (Auto) 11.3 L Garza % (Auto) 7.4 H Garza # 1.2 H Seg Neutrophils % 80.2 H Seg Neutrophils # 13.4 H D-Dimer 1108.83 H POC ABG pH POC ABG pCO2 POC ABG pO2 VBG pH Potassium 5.1 H Chloride Carbon Dioxide 18 L BUN 76 H Creatinine 7.1 H Glucose 148 H POC Glucose Calcium 8.2 L Phosphorus Iron Total Creatine Kinase 736 H CK-MB (CK-2) 7.7 H Troponin T 0.067 H NT-Pro-B Natriuret Pep Albumin Triglycerides 206 H HDL Cholesterol 29 L Urine WBC (Auto) Urine Creatinine Urine Total Protein Crossmatch 12/15/17 12/15/17 12/15/17 17:16 17:45 18:01 WBC RBC Hgb Hct MCV MCH MCHC RDW Plt Count Lymph % (Auto) Garza % (Auto) Garza # Seg Neutrophils % Seg Neutrophils # D-Dimer POC ABG pH POC ABG pCO2 POC ABG pO2 VBG pH 7.204 L Potassium Chloride Carbon Dioxide BUN Creatinine Glucose POC Glucose Calcium Phosphorus Iron Total Creatine Kinase CK-MB (CK-2) Troponin T NT-Pro-B Natriuret Pep 55677 H Albumin Triglycerides HDL Cholesterol Urine WBC (Auto) Urine Creatinine Urine Total Protein Crossmatch See Detail 12/15/17 12/15/17 12/16/17 18:32 23:26 00:24 WBC RBC Hgb Hct MCV MCH MCHC RDW Plt Count Lymph % (Auto) Garza % (Auto) Garza # Seg Neutrophils % Seg Neutrophils # D-Dimer POC ABG pH 7.324 L 7.142 L POC ABG pCO2 33.6 L 50.4 H POC ABG pO2 110 H 107 H VBG pH Potassium Chloride Carbon Dioxide BUN Creatinine Glucose POC Glucose Calcium Phosphorus Iron 37 L Total Creatine Kinase CK-MB (CK-2) Troponin T NT-Pro-B Natriuret Pep Albumin Triglycerides HDL Cholesterol Urine WBC (Auto) Urine Creatinine Urine Total Protein Crossmatch 12/16/17 12/16/17 12/16/17 03:41 03:43 03:43 WBC 16.3 H RBC 3.01 L Hgb 7.5 L Hct 24.3 L D MCV 81 L MCH 25 L MCHC 31 L RDW 17.7 H Plt Count Lymph % (Auto) 7.9 L Garza % (Auto) 7.8 H Garza # 1.3 H Seg Neutrophils % 83.7 H Seg Neutrophils # 13.7 H D-Dimer POC ABG pH 7.211 L POC ABG pCO2 45.3 H POC ABG pO2 123 H VBG pH Potassium 5.3 H Chloride Carbon Dioxide 16 L BUN 76 H Creatinine 7.5 H Glucose 121 H POC Glucose Calcium 7.9 L Phosphorus Iron Total Creatine Kinase CK-MB (CK-2) Troponin T NT-Pro-B Natriuret Pep Albumin 3.6 L Triglycerides HDL Cholesterol Urine WBC (Auto) Urine Creatinine Urine Total Protein Crossmatch 12/16/17 12/16/1718 10:11 11:10 11:41 WBC 17.6 H RBC 3.16 L Hgb 7.9 L Hct 24.5 L MCV 78 L MCH 25 L MCHC RDW 17.7 H Plt Count Lymph % (Auto) 8.6 L Garza % (Auto) Garza # 1.3 H Seg Neutrophils % 83.7 H Seg Neutrophils # 14.7 H D-Dimer POC ABG pH 7.491 H POC ABG pCO2 POC ABG pO2 56 L VBG pH Potassium Chloride Carbon Dioxide BUN Creatinine Glucose POC Glucose 127 H Calcium Phosphorus Iron Total Creatine Kinase CK-MB (CK-2) Troponin T NT-Pro-B Natriuret Pep Albumin Triglycerides HDL Cholesterol Urine WBC (Auto) Urine Creatinine Urine Total Protein Crossmatch 12/16/17 12/16/17 12/16/17 12:05 12:05 12:15 WBC RBC Hgb 7.4 L Hct 22.8 L MCV MCH MCHC RDW Plt Count Lymph % (Auto) Garza % (Auto) Garza # Seg Neutrophils % Seg Neutrophils # D-Dimer POC ABG pH POC ABG pCO2 POC ABG pO2 VBG pH Potassium Chloride Carbon Dioxide BUN Creatinine Glucose POC Glucose Calcium Phosphorus Iron Total Creatine Kinase CK-MB (CK-2) Troponin T NT-Pro-B Natriuret Pep Albumin Triglycerides HDL Cholesterol Urine WBC (Auto) > 182.0 H Urine Creatinine 81.7 H Urine Total Protein 493 H Crossmatch 12/16/17 12/16/17 12/17/17 17:52 18:08 00:11 WBC RBC Hgb 6.6 L 6.9 L Hct 20.6 L 20.8 L MCV MCH MCHC RDW Plt Count Lymph % (Auto) Garza % (Auto) Garza # Seg Neutrophils % Seg Neutrophils # D-Dimer POC ABG pH POC ABG pCO2 POC ABG pO2 VBG pH Potassium Chloride Carbon Dioxide BUN Creatinine Glucose POC Glucose 127 H Calcium Phosphorus Iron Total Creatine Kinase CK-MB (CK-2) Troponin T NT-Pro-B Natriuret Pep Albumin Triglycerides HDL Cholesterol Urine WBC (Auto) Urine Creatinine Urine Total Protein Crossmatch 12/17/17 12/17/17 12/17/17 00:24 04:03 07:54 WBC 13.1 H RBC 3.06 L Hgb 8.1 L Hct 24.3 L MCV 79 L MCH 26 L MCHC RDW 18.6 H Plt Count Lymph % (Auto) 11.9 L Garza % (Auto) 8.6 H Garza # 1.1 H Seg Neutrophils % 77.9 H Seg Neutrophils # 10.2 H D-Dimer POC ABG pH 7.453 H POC ABG pCO2 33.6 L POC ABG pO2 VBG pH Potassium Chloride Carbon Dioxide BUN Creatinine Glucose POC Glucose 126 H Calcium Phosphorus Iron Total Creatine Kinase CK-MB (CK-2) Troponin T NT-Pro-B Natriuret Pep Albumin Triglycerides HDL Cholesterol Urine WBC (Auto) Urine Creatinine Urine Total Protein Crossmatch 12/17/17 12/17/17 12/17/17 07:54 09:22 11:55 WBC RBC Hgb Hct MCV MCH MCHC RDW Plt Count Lymph % (Auto) Garza % (Auto) Garza # Seg Neutrophils % Seg Neutrophils # D-Dimer POC ABG pH POC ABG pCO2 POC ABG pO2 VBG pH Potassium 3.4 L D Chloride Carbon Dioxide 21 L BUN 65 H Creatinine 6.4 H Glucose 133 H POC Glucose 112 H 119 H Calcium Phosphorus Iron Total Creatine Kinase CK-MB (CK-2) Troponin T NT-Pro-B Natriuret Pep Albumin Triglycerides HDL Cholesterol Urine WBC (Auto) Urine Creatinine Urine Total Protein Crossmatch 12/17/17 12/17/17 12/17/17 13:07 17:15 17:29 WBC RBC Hgb 9.3 L 9.8 L Hct 27.9 L 29.8 L MCV MCH MCHC RDW Plt Count Lymph % (Auto) Garza % (Auto) Garza # Seg Neutrophils % Seg Neutrophils # D-Dimer POC ABG pH POC ABG pCO2 POC ABG pO2 VBG pH Potassium Chloride Carbon Dioxide BUN Creatinine Glucose POC Glucose 158 H Calcium Phosphorus Iron Total Creatine Kinase CK-MB (CK-2) Troponin T NT-Pro-B Natriuret Pep Albumin Triglycerides HDL Cholesterol Urine WBC (Auto) Urine Creatinine Urine Total Protein Crossmatch 12/18/17 12/18/17 12/18/17 00:03 00:28 04:44 WBC RBC Hgb 9.9 L Hct 29.9 L MCV MCH MCHC RDW Plt Count Lymph % (Auto) Garza % (Auto) Garza # Seg Neutrophils % Seg Neutrophils # D-Dimer POC ABG pH 7.497 H POC ABG pCO2 27.0 L POC ABG pO2 136 H VBG pH Potassium Chloride Carbon Dioxide BUN Creatinine Glucose POC Glucose 109 H Calcium Phosphorus Iron Total Creatine Kinase CK-MB (CK-2) Troponin T NT-Pro-B Natriuret Pep Albumin Triglycerides HDL Cholesterol Urine WBC (Auto) Urine Creatinine Urine Total Protein Crossmatch 12/18/17 12/18/17 12/18/17 05:12 05:12 11:55 WBC 14.2 H RBC Hgb 9.8 L Hct 29.7 L MCV 81 L MCH 27 L MCHC RDW 18.8 H Plt Count Lymph % (Auto) 12.3 L Garza % (Auto) 9.4 H Garza # 1.3 H Seg Neutrophils % 75.5 H Seg Neutrophils # 10.7 H D-Dimer POC ABG pH POC ABG pCO2 POC ABG pO2 VBG pH Potassium Chloride Carbon Dioxide 19 L BUN 55 H Creatinine 6.0 H Glucose 112 H POC Glucose 126 H Calcium Phosphorus Iron Total Creatine Kinase CK-MB (CK-2) Troponin T NT-Pro-B Natriuret Pep Albumin Triglycerides HDL Cholesterol Urine WBC (Auto) Urine Creatinine Urine Total Protein Crossmatch 12/18/17 12/19/17 12/19/17 21:34 05:01 05:10 WBC 11.9 H RBC Hgb 9.5 L Hct 30.1 L MCV 82 L MCH 26 L MCHC RDW 19.0 H Plt Count Lymph % (Auto) Garza % (Auto) Garza # Seg Neutrophils % Seg Neutrophils # D-Dimer POC ABG pH POC ABG pCO2 29.8 L POC ABG pO2 116 H VBG pH Potassium Chloride Carbon Dioxide BUN Creatinine Glucose POC Glucose 120 H Calcium Phosphorus Iron Total Creatine Kinase CK-MB (CK-2) Troponin T NT-Pro-B Natriuret Pep Albumin Triglycerides HDL Cholesterol Urine WBC (Auto) Urine Creatinine Urine Total Protein Crossmatch 12/19/17 12/19/17 12/19/17 05:10 05:10 07:15 WBC RBC Hgb Hct MCV MCH MCHC RDW Plt Count Lymph % (Auto) Garza % (Auto) Garza # Seg Neutrophils % Seg Neutrophils # D-Dimer POC ABG pH POC ABG pCO2 POC ABG pO2 VBG pH Potassium Chloride 95.9 L Carbon Dioxide 18 L BUN 90 H Creatinine 9.2 H D Glucose 140 H POC Glucose 130 H Calcium Phosphorus 11.90 H Iron Total Creatine Kinase CK-MB (CK-2) Troponin T NT-Pro-B Natriuret Pep Albumin Triglycerides 440 H HDL Cholesterol Urine WBC (Auto) Urine Creatinine Urine Total Protein Crossmatch
[2017-12-19] MEDS: COREG PO SCH ×2 (09:53→23:01)
[2017-12-19] MEDS: PROTONIX IV SCH (09:54)
--- NOTE | 2017-12-19 10:03 | Gastroenterology Progress Note ---
Assessment and Plan 1.iron deficiency anemia -CT negative for intra-abdominal bleed -iron 37 (TIBC, ferritin, folate, and B12-WNL) -stool occult pending -HGB 9.5-stable -continue to monitor H/H and transfuse as needed -no active signs of bleeding -etiology unclear -no plans for scopes at this time unless overt bleeding develops (patient w/ multiple comorbids) -will need endoscopic evaluation with EGD/colonoscopy in the future once medically stable based on renal/cardiac disease -avoid NSAIDs -continue PPI and supportive care -will follow at a distance Subjective Date of service: 12/19/17 Principal diagnosis: anemia Interval history: No active signs of bleeding overnight or this am per nursing. Objective - Constitutional Vitals: Temp Pulse Resp BP Pulse Ox 98.7 F 98 H 19 129/90 96 12/19/17 08:00 12/19/17 09:53 12/19/17 09:31 12/19/17 09:53 12/19/17 09:31 General appearance: no acute distress, other (intubated and sedated on vent) - Respiratory Respiratory: bilateral: CTA (anterior) - Cardiovascular Rhythm: regular Heart Sounds: Present: S1 & S2 - Gastrointestinal General gastrointestinal: Present: soft, distended, normal bowel sounds - Neurologic Neurological: other (unable to assess) - Labs CBC & Chem 7: 12/19/17 05:10 12/19/17 05:10 Labs: Laboratory Results - last 24 hr 12/15/17 12/18/17 12/18/17 17:45 11:55 18:04 WBC RBC Hgb Hct MCV MCH MCHC RDW Plt Count POC ABG pH POC ABG pCO2 POC ABG pO2 POC ABG HCO3 POC ABG Total CO2 POC ABG O2 Sat POC ABG Base Excess FiO2 Sodium Potassium Chloride Carbon Dioxide Anion Gap BUN Creatinine Estimated GFR BUN/Creatinine Ratio Glucose POC Glucose 126 H 103 Calcium Phosphorus Triglycerides Crossmatch See Detail 12/18/17 12/19/17 12/19/17 21:34 05:01 05:10 WBC 11.9 H RBC 3.66 Hgb 9.5 L Hct 30.1 L MCV 82 L MCH 26 L MCHC 32 RDW 19.0 H Plt Count 354 POC ABG pH 7.433 POC ABG pCO2 29.8 L POC ABG pO2 116 H POC ABG HCO3 19.9 POC ABG Total CO2 21 POC ABG O2 Sat 99 POC ABG Base Excess -4 FiO2 40 Sodium Potassium Chloride Carbon Dioxide Anion Gap BUN Creatinine Estimated GFR BUN/Creatinine Ratio Glucose POC Glucose 120 H Calcium Phosphorus Triglycerides Crossmatch 12/19/17 12/19/17 12/19/17 05:10 05:10 07:15 WBC RBC Hgb Hct MCV MCH MCHC RDW Plt Count POC ABG pH POC ABG pCO2 POC ABG pO2 POC ABG HCO3 POC ABG Total CO2 POC ABG O2 Sat POC ABG Base Excess FiO2 Sodium 144 Potassium 4.0 Chloride 95.9 L Carbon Dioxide 18 L Anion Gap 34 BUN 90 H Creatinine 9.2 H D Estimated GFR 6 BUN/Creatinine Ratio 10 Glucose 140 H POC Glucose 130 H Calcium 9.3 Phosphorus 11.90 H Triglycerides 440 H Crossmatch
[2017-12-19] MEDS ORDERED: fentaNYL DRIP Premix 2,000 MCG/100 ML BAG IV SCH (11:00)
--- NOTE | 2017-12-19 11:52 | Progress Note ---
Assessment and Plan Acute respiratory failure intubated on the vent Acute on chronic renal failure s/p urgent dialysis Anemia s/p transfusion of PRBCs Acute systolic heart failure EF 40-45% by echo Hypertension Subjective Date of service: 12/19/17 Principal diagnosis: BALDO on CKD Interval history: Remains intubated on the vent. Objective Vital Signs Temp Pulse Pulse Pulse Resp Resp BP 12/19/17 11:35 91 H 147/87 12/19/17 09:53 98 H 129/90 12/19/17 09:31 97 H 19 154/84 12/19/17 09:15 93 H 23 137/81 12/19/17 09:00 93 H 22 137/81 12/19/17 08:45 89 22 125/79 12/19/17 08:30 88 22 116/73 12/19/17 08:27 88 22 12/19/17 08:16 88 22 12/19/17 08:15 89 22 119/70 12/19/17 08:12 90 108/63 12/19/17 08:01 94 H 22 108/63 12/19/17 08:00 98.7 F 12/19/17 07:45 93 H 22 122/73 12/19/17 07:36 12/19/17 07:30 94 H 17 136/75 12/19/17 07:15 93 H 17 145/72 12/19/17 07:00 90 15 144/71 12/19/17 06:47 87 144/71 12/19/17 06:45 88 17 144/71 12/19/17 06:30 82 22 151/71 12/19/17 06:15 80 23 159/77 12/19/17 06:00 77 21 159/75 12/19/17 05:45 84 15 150/69 12/19/17 05:30 84 21 146/77 12/19/17 05:15 77 14 150/67 12/19/17 05:00 72 21 138/68 12/19/17 04:59 73 138/69 12/19/17 04:45 73 22 144/78 12/19/17 04:30 71 22 161/73 12/19/17 04:15 68 22 156/76 12/19/17 04:00 98.4 F 70 22 160/83 12/19/17 03:45 70 22 154/73 09/18/18 03:30 73 22 152/83 18/18 03:15 68 22 166/76 18/18 03:00 71 22 148/77 1818 02:45 72 17 141/74 18/18 02:30 76 22 141/74 18/18 02:15 76 22 136/77 18/18 02:00 70 22 152/77 18/18 01:45 71 22 146/84 1818 01:30 70 22 133/77 18/18 01:15 72 22 143/68 18 01:00 71 22 134/67 18/18 00:45 67 22 116/71 18 00:30 72 22 119/74 1818 00:15 71 22 120/71 1818 00:00 97.6 F 73 22 120/65 17/18 23:45 77 21 133/66 12/18/18 23:30 79 22 135/79 18 23:15 81 22 132/78 12/18/18 23:08 84 132/79 12/18/18 23:01 85 22 132/79 12/18/18 23:00 84 22 132/79 12/18/18 22:58 83 22 133/76 12/18/18 22:45 87 22 133/76 12/18/18 22:30 86 22 142/85 18 22:15 84 22 149/82 12/18/18 22:00 82 22 143/91 18 21:57 86 139/86 18 21:45 90 24 133/81 17/18 21:31 91 H 22 120/78 12/18/18 21:15 85 22 138/86 12/18/18 21:00 86 22 133/81 12/18/18 20:45 88 20 127/86 18 20:37 87 127/86 12/18/18 20:30 87 22 129/78 17/18 20:15 86 22 122/80 17/18 20:00 98.2 F 85 22 140/87 12/18/18 19:45 87 22 140/87 12/18/18 19:30 85 22 146/87 12/18/17 19:15 86 22 148/90 12/18/17 19:00 88 22 148/89 18 18:45 87 22 139/91 18 18:30 89 22 141/87 18 18:15 89 22 139/88 12/18/17 18:00 88 23 142/81 18 17:45 89 22 120/82 12/18/17 17:31 94 H 21 122/79 12/18/17 17:15 91 H 22 151/82 12/18/17 17:00 90 22 153/90 12/18/17 16:45 91 H 22 129/86 12/18/17 16:30 92 H 22 147/84 12/18/17 16:15 88 22 135/78 12/18/17 16:00 98.0 F 87 94 H 22 135/78 12/18/17 15:45 86 22 139/79 12/18/17 15:30 88 22 146/82 12/18/17 15:28 99 H 142/89 12/18/17 15:15 86 22 142/89 12/18/17 15:01 85 22 164/87 12/18/17 14:45 89 22 127/83 12/18/17 14:30 87 22 141/84 12/18/17 14:15 87 22 137/88 12/18/17 14:00 88 22 141/84 12/18/17 13:55 88 129/74 12/18/17 13:51 91 H 22 12/18/17 13:45 91 H 22 129/74 12/18/17 13:37 91 H 22 12/18/17 13:30 90 22 129/75 12/18/17 13:15 91 H 22 132/84 12/18/17 13:00 88 22 116/77 12/18/17 12:45 90 22 116/77 12/18/17 12:30 87 18 122/59 12/18/17 12:15 92 H 22 122/77 12/18/17 12:00 97.7 F 92 H 92 H 22 108/70 Pulse Ox 12/19/17 11:35 98 12/19/17 09:53 12/19/17 09:31 96 12/19/17 09:15 99 09/18/18 09:00 98 18/18 08:45 98 /18/18 08:30 98 18/18 08:27 18/18 08:16 18/18 08:15 98 18/18 08:12 99 18/18 08:01 97 18/18 08:00 1818 07:45 98 18/18 07:36 99 18/18 07:30 97 1818 07:15 99 1818 07:00 99 18/18 06:47 1818 06:45 99 18/18 06:30 99 18/18 06:15 100 18/18 06:00 99 18/18 05:45 100 1818 05:30 99 18/18 05:15 99 1818 05:00 99 18/18 04:59 99 18/18 04:45 99 18/18 04:30 100 1818 04:15 100 18/18 04:00 99 18/18 03:45 99 18/18 03:30 98 18/18 03:15 99 18/18 03:00 99 18/18 02:45 100 18/18 02:30 98 18/18 02:15 100 18/18 02:00 99 18/18 01:45 100 18/18 01:30 100 18/18 01:15 99 18/18 01:00 100 18/18 00:45 100 18/18 00:30 100 18/18 00:15 100 18/18 00:00 99 17/18 23:45 99 17/18 23:30 99 17/18 23:15 99 17/18 23:08 100 17/18 23:01 100 17/18 23:00 99 17/18 22:58 100 17/18 22:45 100 17/18 22:30 100 17/18 22:15 100 17/18 22:00 99 17/18 21:57 17/18 21:45 99 12/18/17 21:31 100 18 21:15 99 18 21:00 99 18 20:45 99 18 20:37 99 18 20:30 99 18 20:15 100 18 20:00 100 18 19:45 99 18 19:30 99 18 19:15 99 18 19:00 99 18 18:45 99 18 18:30 99 18 18:15 99 18 18:00 98 18 17:45 99 18 17:31 98 18 17:15 99 18 17:00 99 18 16:45 99 18 16:30 99 18 16:15 100 12/18/17 16:00 99 18 15:45 99 18 15:30 99 18 15:28 99 18 15:15 100 18 15:01 100 18 14:45 99 18 14:30 100 18 14:15 100 12/18/17 14:00 100 18 13:55 18 13:51 18 13:45 99 18 13:37 12/18/17 13:30 99 12/18/17 13:15 100 12/18/17 13:00 99 12/18/17 12:45 99 18 12:30 98 12/18/17 12:15 99 12/18/17 12:00 98 - Physical Examination General: Other (intubtaed on mechanical ventilator) Cardiac: Positive: Reg Rate and Rhythm - Labs and Meds Lipids 12/19/17 Range/Units 05:10 Triglycerides 440 H (2-149) mg/dL CBC 12/19/17 Range/Units 05:10 WBC 11.9 H (4.5-11.0) K/mm3 RBC 3.66 (3.65-5.03) M/mm3 Hgb 9.5 L (11.8-15.2) gm/dl Hct 30.1 L (35.5-45.6) % Plt Count 354 (140-440) K/mm3 Comprehensive Metabolic Panel 12/19/17 Range/Units 05:10 Sodium 144 (137-145) mmol/L Potassium 4.0 (3.6-5.0) mmol/L Chloride 95.9 L (98-107) mmol/L Carbon Dioxide 18 L (22-30) mmol/L BUN 90 H (9-20) mg/dL Creatinine 9.2 H D (0.8-1.5) mg/dL Glucose 140 H (75-100) mg/dL Calcium 9.3 (8.4-10.2) mg/dL
[2017-12-19] MEDS: SUBLIMAZE IV PRN ×3 (14:51→22:03)
--- NOTE | 2017-12-19 16:26 | Progress Note ---
Assessment and Plan Right LE DVT -start on heparin drip - monitor h and h Acute respiratory failure with hypoxia -s/p intubation, on MV -Off steroids -ABG improved -pulmonology following Sepsis likely from PNA -cont IV abx -blood cultures negative so far Bilateral pneumonia -on IV Zosyn and Vanco -blood and sputum culture neg BALDO 2/2 acute on chronic cardio renal syndrome, ischemic ATN in the setting of severe anemia and sepsis -H/O CKD suspected -on HD s/p vascath placement -Neprology following Hyperkalemia, now hypokalemia -will monitor level and replete as needed Elevated d-dimer -VQ scan pending Severe anemia, probably sec to CKD/ESRD -s/p blood transfusion with 4 units of PRBC -Patient is to receive additional 2u of PRBC today -s/p CT abdomen and pelvis to assess for acute bleed, but no active source per GI -We will cont to monitor posttransfusion H&H Acute exacerbation of CHF (congestive heart failure), suspected -2d ECHO report showed EF 40-45% -cont volume removal by increased Ultrafiltration Elevated troponin probably secondary to demand ischemia -Cardiology following HTN -Coreg and PRN hydralazine started -monitor and adjust med as needed DVT prophylaxis on Heparin and GI prophylaxis on Protonix Disposition: Patient remains in critical condition, continue current management Brief history: This is a 67 yo M with unknown past medical history, who was brought in to ER by EMS for progressive shortness of breath, associated with productive cough. As per EMS reports, Pt was placed on 100% nonrebreather and brought to the ER. CXR showed evidence of cardiomegaly and pulmonary edema, and since pt developed worsening respiratory failure with hypercapnia/hypoxia pt required intubation. Labs showed elevated WBC > 17, severe anemia with Hb as low as 4.9, elevated BUN/Cr at 76/7.1mg/dl along with hyperkalemia and metabolic acidosis. He was transfused and vascath placed for HD per renal. Hospitalist Physical exam: GENERAL: elderly male lying on bed, sedated. HEENT: Normocephalic. Atraumatic. No conjunctival congestion or icterus. Patient has moist mucous membranes. NECK: Supple. Trachea midline. CHEST/LUNGS: Clear to auscultated bilaterally, Intubated HEART/CARDIOVASCULAR: Regular in rate and rhythm. S1 and S2 positive. ABDOMEN: Abdomen is soft, nontender. Patient has normal bowel sounds. SKIN: There is no rash. Warm and dry. NEURO: sedated MUSCULOSKELETAL: No joint effusion or tenderness. EXTRIMITY: No edema, no cyanosis or clubbing. PSYCH: unable to assess Subjective Date of service: 12/19/17 Principal diagnosis: BALDO on CKD Interval history: Patient seen and examined. Medical records and medication list reviewed. No acute event overnight noted by the RN. Patient currently intubated and sedated RLE doppler positive for acute DVT Objective - Constitutional Vitals: Vital Signs - 12hr 12/19/17 12/19/17 12/19/17 04:30 04:45 04:59 Temperature Pulse Rate 71 73 73 Pulse Rate [ Anterior Bilateral Throughout] Respiratory 22 22 Rate Respiratory Rate [Anterior Bilateral Throughout] Blood Pressure 161/73 144/78 138/69 O2 Sat by Pulse 100 99 99 Oximetry 12/19/17 12/19/17 12/19/17 05:00 05:15 05:30 Temperature Pulse Rate 72 77 84 Pulse Rate [ Anterior Bilateral Throughout] Respiratory 21 14 21 Rate Respiratory Rate [Anterior Bilateral Throughout] Blood Pressure 138/68 150/67 146/77 O2 Sat by Pulse 99 99 99 Oximetry 12/19/17 12/19/17 12/19/17 05:45 06:00 06:15 Temperature Pulse Rate 84 77 80 Pulse Rate [ Anterior Bilateral Throughout] Respiratory 15 21 23 Rate Respiratory Rate [Anterior Bilateral Throughout] Blood Pressure 150/69 159/75 159/77 O2 Sat by Pulse 100 99 100 Oximetry 12/19/17 12/19/17 12/19/17 06:30 06:45 06:47 Temperature Pulse Rate 82 88 87 Pulse Rate [ Anterior Bilateral Throughout] Respiratory 22 17 Rate Respiratory Rate [Anterior Bilateral Throughout] Blood Pressure 151/71 144/71 144/71 O2 Sat by Pulse 99 99 Oximetry 12/19/17 12/19/17 12/19/17 07:00 07:15 07:30 Temperature Pulse Rate 90 93 H 94 H Pulse Rate [ Anterior Bilateral Throughout] Respiratory 15 17 17 Rate Respiratory Rate [Anterior Bilateral Throughout] Blood Pressure 144/71 145/72 136/75 O2 Sat by Pulse 99 99 97 Oximetry 12/19/17 12/19/17 12/19/17 07:36 07:45 08:00 Temperature 98.7 F Pulse Rate 93 H Pulse Rate [ Anterior Bilateral Throughout] Respiratory 22 Rate Respiratory Rate [Anterior Bilateral Throughout] Blood Pressure 122/73 O2 Sat by Pulse 99 98 Oximetry 12/19/17 12/19/17 12/19/17 08:01 08:12 08:15 Temperature Pulse Rate 94 H 90 89 Pulse Rate [ Anterior Bilateral Throughout] Respiratory 22 22 Rate Respiratory Rate [Anterior Bilateral Throughout] Blood Pressure 108/63 108/63 119/70 O2 Sat by Pulse 97 99 98 Oximetry 12/19/17 12/19/17 12/19/17 08:16 08:27 08:30 Temperature Pulse Rate 88 Pulse Rate [ 88 88 Anterior Bilateral Throughout] Respiratory 22 Rate Respiratory 22 22 Rate [Anterior Bilateral Throughout] Blood Pressure 116/73 O2 Sat by Pulse 98 Oximetry 12/19/17 12/19/17 12/19/17 08:45 09:00 09:15 Temperature Pulse Rate 89 93 H 93 H Pulse Rate [ Anterior Bilateral Throughout] Respiratory 22 22 23 Rate Respiratory Rate [Anterior Bilateral Throughout] Blood Pressure 125/79 137/81 137/81 O2 Sat by Pulse 98 98 99 Oximetry 12/19/17 12/19/17 12/19/17 09:31 09:45 09:53 Temperature Pulse Rate 97 H 100 H 98 H Pulse Rate [ Anterior Bilateral Throughout] Respiratory 19 22 Rate Respiratory Rate [Anterior Bilateral Throughout] Blood Pressure 154/84 129/90 129/90 O2 Sat by Pulse 96 Oximetry 12/19/17 12/19/17 12/19/17 10:00 10:15 10:30 Temperature Pulse Rate 96 H 92 H 98 H Pulse Rate [ Anterior Bilateral Throughout] Respiratory 22 22 20 Rate Respiratory Rate [Anterior Bilateral Throughout] Blood Pressure 153/93 154/93 159/94 O2 Sat by Pulse 96 92 95 Oximetry 12/19/17 12/19/17 12/19/17 10:45 11:00 11:15 Temperature Pulse Rate 95 H 93 H 92 H Pulse Rate [ Anterior Bilateral Throughout] Respiratory 22 22 22 Rate Respiratory Rate [Anterior Bilateral Throughout] Blood Pressure 145/83 143/87 135/83 O2 Sat by Pulse 98 94 96 Oximetry 12/19/17 12/19/17 12/19/17 11:30 11:35 11:45 Temperature Pulse Rate 92 H 91 H 93 H Pulse Rate [ Anterior Bilateral Throughout] Respiratory 22 22 Rate Respiratory Rate [Anterior Bilateral Throughout] Blood Pressure 147/87 147/87 147/87 O2 Sat by Pulse 95 98 95 Oximetry 12/19/17 12/19/17 12/19/17 12:00 12:15 12:30 Temperature 98.5 F Pulse Rate 88 89 84 Pulse Rate [ Anterior Bilateral Throughout] Respiratory 22 22 22 Rate Respiratory Rate [Anterior Bilateral Throughout] Blood Pressure 136/93 139/82 132/72 O2 Sat by Pulse 97 95 96 Oximetry 12/19/17 12/19/17 12/19/17 12:45 13:00 13:15 Temperature Pulse Rate 91 H 93 H 90 Pulse Rate [ Anterior Bilateral Throughout] Respiratory 22 22 22 Rate Respiratory Rate [Anterior Bilateral Throughout] Blood Pressure 123/78 125/79 129/80 O2 Sat by Pulse 95 Oximetry 12/19/17 12/19/17 12/19/17 13:30 13:45 14:00 Temperature Pulse Rate 88 81 85 Pulse Rate [ Anterior Bilateral Throughout] Respiratory 22 22 22 Rate Respiratory Rate [Anterior Bilateral Throughout] Blood Pressure 108/71 103/68 111/75 O2 Sat by Pulse 98 100 98 Oximetry 12/19/17 12/19/17 12/19/17 14:10 14:13 14:15 Temperature Pulse Rate 84 84 Pulse Rate [ 86 Anterior Bilateral Throughout] Respiratory 22 18 Rate Respiratory 22 Rate [Anterior Bilateral Throughout] Blood Pressure 111/75 111/75 O2 Sat by Pulse 99 98 Oximetry 12/19/17 12/19/17 12/19/17 14:23 14:31 14:45 Temperature Pulse Rate 99 H 89 Pulse Rate [ 93 H Anterior Bilateral Throughout] Respiratory 17 16 Rate Respiratory 20 Rate [Anterior Bilateral Throughout] Blood Pressure 135/87 135/90 O2 Sat by Pulse 94 Oximetry 12/19/17 12/19/17 12/19/17 14:49 15:00 15:15 Temperature Pulse Rate 89 95 H 91 H Pulse Rate [ Anterior Bilateral Throughout] Respiratory 25 H 12 Rate Respiratory Rate [Anterior Bilateral Throughout] Blood Pressure 135/90 144/90 144/90 O2 Sat by Pulse 97 98 Oximetry 12/19/17 12/19/17 12/19/17 15:30 15:45 15:58 Temperature 98.6 F Pulse Rate 87 88 Pulse Rate [ Anterior Bilateral Throughout] Respiratory 14 12 Rate Respiratory Rate [Anterior Bilateral Throughout] Blood Pressure 140/87 146/90 O2 Sat by Pulse 98 99 Oximetry 12/19/17 12/19/17 16:00 16:15 Temperature Pulse Rate 95 H 91 H Pulse Rate [ Anterior Bilateral Throughout] Respiratory 16 15 Rate Respiratory Rate [Anterior Bilateral Throughout] Blood Pressure 149/99 148/91 O2 Sat by Pulse 99 99 Oximetry - Labs CBC & Chem 7: 12/19/17 19:17 12/19/17 05:10 Labs: Abnormal lab results 12/15/17 12/18/17 12/18/17 Range/Units 17:45 11:55 21:34 WBC (4.5-11.0) K/mm3 Hgb (11.8-15.2) gm/dl Hct (35.5-45.6) % MCV (84-94) fl MCH (28-32) pg RDW (13.2-15.2) % POC ABG pCO2 (35-45) POC ABG pO2 (80-105) Chloride (98-107) mmol/L Carbon Dioxide (22-30) mmol/L BUN (9-20) mg/dL Creatinine (0.8-1.5) mg/dL Glucose (75-100) mg/dL POC Glucose 126 H 120 H (70-105) Phosphorus (2.5-4.5) mg/dL Triglycerides (2-149) mg/dL Crossmatch See Detail 12/19/17 12/19/17 12/19/17 Range/Units 05:01 05:10 05:10 WBC 11.9 H (4.5-11.0) K/mm3 Hgb 9.5 L (11.8-15.2) gm/dl Hct 30.1 L (35.5-45.6) % MCV 82 L (84-94) fl MCH 26 L (28-32) pg RDW 19.0 H (13.2-15.2) % POC ABG pCO2 29.8 L (35-45) POC ABG pO2 116 H (80-105) Chloride 95.9 L (98-107) mmol/L Carbon Dioxide 18 L (22-30) mmol/L BUN 90 H (9-20) mg/dL Creatinine 9.2 H D (0.8-1.5) mg/dL Glucose 140 H (75-100) mg/dL POC Glucose (70-105) Phosphorus 11.90 H (2.5-4.5) mg/dL Triglycerides (2-149) mg/dL Crossmatch 12/19/17 12/19/17 12/19/17 Range/Units 05:10 07:15 11:52 WBC (4.5-11.0) K/mm3 Hgb (11.8-15.2) gm/dl Hct (35.5-45.6) % MCV (84-94) fl MCH (28-32) pg RDW (13.2-15.2) % POC ABG pCO2 (35-45) POC ABG pO2 (80-105) Chloride (98-107) mmol/L Carbon Dioxide (22-30) mmol/L BUN (9-20) mg/dL Creatinine (0.8-1.5) mg/dL Glucose (75-100) mg/dL POC Glucose 130 H 148 H (70-105) Phosphorus (2.5-4.5) mg/dL Triglycerides 440 H (2-149) mg/dL Crossmatch 12/19/17 Range/Units 15:36 WBC (4.5-11.0) K/mm3 Hgb (11.8-15.2) gm/dl Hct (35.5-45.6) % MCV (84-94) fl MCH (28-32) pg RDW (13.2-15.2) % POC ABG pCO2 (35-45) POC ABG pO2 (80-105) Chloride (98-107) mmol/L Carbon Dioxide (22-30) mmol/L BUN (9-20) mg/dL Creatinine (0.8-1.5) mg/dL Glucose (75-100) mg/dL POC Glucose 127 H (70-105) Phosphorus (2.5-4.5) mg/dL Triglycerides (2-149) mg/dL Crossmatch
[2017-12-19] MEDS ORDERED: HEPARIN 10,000 UNITS/10 ML IV ONE (18:30)
[2017-12-19 19:42] LABS: Hematocrit 31.1 % (35.5-45.6); Hemoglobin 10.3 gm/dl (11.8-15.2)
[2017-12-19 19:51] LABS: INR 1.05 (0.87-1.13)
[2017-12-19 19:52] LABS: Partial Thromboplastin Time 27.9 Sec. (24.2-36.6)
[2017-12-19] MEDS: HEPARIN/ 0.45% NACL-25,000 UNIT/500 ML 25,000 UNIT/500 ML BAG IV SCH (20:10)
--- NOTE | 2017-12-19 23:10 | XRay Report ---
FINAL REPORT PROCEDURE: XR ABDOMEN 1V AP TECHNIQUE: Abdominal radiograph, single supine AP view. HISTORY: verification of NG TUBE COMPARISON: No prior studies are available for comparison. FINDINGS: Bowel gas pattern:Nonobstructive. Masses or calcifications:None. Bony structures:No significant abnormality. Other:NG tube is in the stomach.. IMPRESSION: No acute abnormality. The NG tube is in the stomach.
[2017-12-19] MEDS: PROTONIX (nf) FEEDTUBE SCH (23:46)
[2017-12-20] MEDS: APRESOLINE IV PRN ×3 (02:14→13:00)
[2017-12-20] MEDS: HEPARIN/ 0.45% NACL-25,000 UNIT/500 ML 25,000 UNIT/500 ML BAG IV SCH ×2 (02:58→19:25)
[2017-12-20 03:32] LABS: Calcium 9.9 mg/dL (8.4-10.2)
--- NOTE | 2017-12-20 03:58 | XRay Report ---
FINAL REPORT PROCEDURE: XR CHEST 1V AP TECHNIQUE: Chest radiograph anteroposterior view. CPT 35939 HISTORY: follow up respiratory failure COMPARISON: 12/19/2017 FINDINGS: Heart: Heart is enlarged. Mediastinum/Vessels: Normal. Lungs/Pleural space: There is suboptimal inspiration. There are no infiltrates, effusions or pneumothoraces.. Bony thorax: No acute osseous abnormality. Life support devices: Endotracheal tube is the mid trachea. NG tube is in the stomach.. IMPRESSION: Heart is enlarged. There is suboptimal inspiration. There are no infiltrates, effusions or pneumothoraces.. Endotracheal tube is the mid trachea. NG tube is in the stomach.. .
[2017-12-20] MEDS: NITRO-BID 2% TP SCH ×2 (05:51→12:59)
[2017-12-20] MEDS ORDERED: APRESOLINE ONE (06:45)
[2017-12-20] MEDS: DUONEB *Not for PRN Use IH SCH ×3 (07:28→19:41)
--- NOTE | 2017-12-20 08:55 | Progress Note ---
Assessment and Plan Acute respiratory failure secondary to pulmonary edema. Controlled DVT right lower extremity. IV heparin initiated Pulmonary edema likely from acute renal failure End stage renal disease.May need further HD, nephrology following Hyperkalemia. Controlled Anemia. Recommendations Continue SBT. May extubate if tolerated,but acidotic Continue IV heparin Monitor H&H Worsening acidosis and creatinine. We'll refer nephrology input regarding hemodialysis. Also, review if patient will need permanent vascular access for HD Monitor acidosis. No indication for acute bicarbonate at this point, but needs to be followed Monitor electrolytes DVT prophylaxis. Renal care, hemodialysis as needed per nephrology. Critical care time was 31 minutes of [id number] evaluation and coordination of care Subjective Date of service: 12/20/17 Principal diagnosis: BALDO on CKD Interval history: on SBT,intubated.Awake Objective Vital Signs - 12hr 12/19/17 12/19/17 12/19/17 21:00 22:00 23:00 Temperature Pulse Rate 97 H 95 H 96 H Pulse Rate [ Anterior Bilateral Throughout] Respiratory 22 22 22 Rate Respiratory Rate [Anterior Bilateral Throughout] Blood Pressure 127/86 147/89 144/87 O2 Sat by Pulse 99 99 100 Oximetry 12/19/17 12/19/17 12/19/17 23:01 23:27 23:32 Temperature Pulse Rate 95 H 95 H 93 H Pulse Rate [ Anterior Bilateral Throughout] Respiratory 22 Rate Respiratory Rate [Anterior Bilateral Throughout] Blood Pressure 144/87 162/91 157/96 O2 Sat by Pulse 99 99 Oximetry 12/20/17 12/20/17 12/20/17 00:00 01:00 02:00 Temperature 98.9 F Pulse Rate 94 H 100 H 95 H Pulse Rate [ Anterior Bilateral Throughout] Respiratory 22 22 22 Rate Respiratory Rate [Anterior Bilateral Throughout] Blood Pressure 163/91 156/96 172/108 O2 Sat by Pulse 99 99 100 Oximetry 12/20/17 12/20/17 12/20/17 02:14 02:32 03:00 Temperature Pulse Rate 96 H 96 H 103 H Pulse Rate [ Anterior Bilateral Throughout] Respiratory 22 Rate Respiratory Rate [Anterior Bilateral Throughout] Blood Pressure 172/108 156/90 O2 Sat by Pulse 99 Oximetry 12/20/17 12/20/17 12/20/17 04:00 04:02 05:00 Temperature 98.8 F Pulse Rate 105 H 105 H 100 H Pulse Rate [ Anterior Bilateral Throughout] Respiratory 24 22 Rate Respiratory Rate [Anterior Bilateral Throughout] Blood Pressure 170/92 170/92 153/93 O2 Sat by Pulse 99 98 98 Oximetry 12/20/17 12/20/17 12/20/17 05:51 06:00 06:45 Temperature Pulse Rate 101 H 103 H 103 H Pulse Rate [ Anterior Bilateral Throughout] Respiratory 22 Rate Respiratory Rate [Anterior Bilateral Throughout] Blood Pressure 174/95 174/93 187/82 O2 Sat by Pulse 98 Oximetry 12/20/17 12/20/17 12/20/17 07:40 07:55 08:00 Temperature 99.1 F Pulse Rate 110 H Pulse Rate [ 110 H 110 H Anterior Bilateral Throughout] Respiratory 17 Rate Respiratory 16 16 Rate [Anterior Bilateral Throughout] Blood Pressure 150/80 O2 Sat by Pulse 98 Oximetry Constitutional: no acute distress, alert ENT: other (orally intubated .Right central in position) Neck: supple Effort: normal Ascultation: Bilateral: clear, diminished breath sounds, rales (right greater than left) Percussion: Bilateral: not dull Cardiovascular: regular rate and rhythm Gastrointestinal: normoactive bowel sounds, soft, tender, other (no rebound tenderness, bowel sounds present) Integumentary: normal Extremities: no edema, pink and warm, pulses normal Neurologic: normal mental status, non-focal exam, pupils equal and round CBC and BMP: 12/19/17 19:17 12/20/17 02:09 ABG, PT/INR, D-dimer: ABG POC ABG pH 7.308 (7.35-7.45) L 12/20/17 04:03 POC ABG pCO2 31.1 (35-45) L 12/20/17 04:03 POC ABG pO2 133 (80-105) H 12/20/17 04:03 POC ABG HCO3 15.6 12/20/17 04:03 POC ABG Total CO2 17 12/20/17 04:03 POC ABG O2 Sat 99 12/20/17 04:03 PT/INR, D-dimer PT 14.3 Sec. (12.2-14.9) 12/19/17 19:17 INR 1.05 (0.87-1.13) 12/19/17 19:17 D-Dimer 1108.83 ng/mlDDU (0-234) H 12/15/17 17:16 Abnormal lab findings: Abnormal Labs 12/15/17 12/15/17 12/15/17 17:16 17:16 17:16 WBC 16.7 H RBC 2.12 L Hgb 4.9 L* Hct 16.0 L* MCV 76 L MCH 23 L MCHC 30 L RDW 17.3 H Plt Count 445 H Lymph % (Auto) 11.3 L [place] % (Auto) 7.4 H [place] # 1.2 H Seg Neutrophils % 80.2 H Seg Neutrophils # 13.4 H D-Dimer 1108.83 H Heparin Anti-Xa Level POC ABG pH POC ABG pCO2 POC ABG pO2 VBG pH Sodium Potassium 5.1 H Chloride Carbon Dioxide 18 L BUN 76 H Creatinine 7.1 H Glucose 148 H POC Glucose Calcium 8.2 L Phosphorus Iron Total Creatine Kinase 736 H CK-MB (CK-2) 7.7 H Troponin T 0.067 H NT-Pro-B Natriuret Pep Albumin Triglycerides 206 H HDL Cholesterol 29 L Urine WBC (Auto) Urine Creatinine Urine Total Protein Crossmatch 12/15/17 12/15/17 12/15/17 17:16 17:45 18:01 WBC RBC Hgb Hct MCV MCH MCHC RDW Plt Count Lymph % (Auto) [place] % (Auto) [place] # Seg Neutrophils % Seg Neutrophils # D-Dimer Heparin Anti-Xa Level POC ABG pH POC ABG pCO2 POC ABG pO2 VBG pH 7.204 L Sodium Potassium Chloride Carbon Dioxide BUN Creatinine Glucose POC Glucose Calcium Phosphorus Iron Total Creatine Kinase CK-MB (CK-2) Troponin T NT-Pro-B Natriuret Pep 82658 H Albumin Triglycerides HDL Cholesterol Urine WBC (Auto) Urine Creatinine Urine Total Protein Crossmatch See Detail 12/15/17 12/15/17 12/16/17 18:32 23:26 00:24 WBC RBC Hgb Hct MCV MCH MCHC RDW Plt Count Lymph % (Auto) [place] % (Auto) [place] # Seg Neutrophils % Seg Neutrophils # D-Dimer Heparin Anti-Xa Level POC ABG pH 7.324 L 7.142 L POC ABG pCO2 33.6 L 50.4 H POC ABG pO2 110 H 107 H VBG pH Sodium Potassium Chloride Carbon Dioxide BUN Creatinine Glucose POC Glucose Calcium Phosphorus Iron 37 L Total Creatine Kinase CK-MB (CK-2) Troponin T NT-Pro-B Natriuret Pep Albumin Triglycerides HDL Cholesterol Urine WBC (Auto) Urine Creatinine Urine Total Protein Crossmatch 12/16/17 12/16/17 12/16/17 03:41 03:43 03:43 WBC 16.3 H RBC 3.01 L Hgb 7.5 L Hct 24.3 L D MCV 81 L MCH 25 L MCHC 31 L RDW 17.7 H Plt Count Lymph % (Auto) 7.9 L [place] % (Auto) 7.8 H [place] # 1.3 H Seg Neutrophils % 83.7 H Seg Neutrophils # 13.7 H D-Dimer Heparin Anti-Xa Level POC ABG pH 7.211 L POC ABG pCO2 45.3 H POC ABG pO2 123 H VBG pH Sodium Potassium 5.3 H Chloride Carbon Dioxide 16 L BUN 76 H Creatinine 7.5 H Glucose 121 H POC Glucose Calcium 7.9 L Phosphorus Iron Total Creatine Kinase CK-MB (CK-2) Troponin T NT-Pro-B Natriuret Pep Albumin 3.6 L Triglycerides HDL Cholesterol Urine WBC (Auto) Urine Creatinine Urine Total Protein Crossmatch 12/16/17 12/16/17 12/16/17 10:11 11:10 11:41 WBC 17.6 H RBC 3.16 L Hgb 7.9 L Hct 24.5 L MCV 78 L MCH 25 L MCHC RDW 17.7 H Plt Count Lymph % (Auto) 8.6 L [place] % (Auto) [place] # 1.3 H Seg Neutrophils % 83.7 H Seg Neutrophils # 14.7 H D-Dimer Heparin Anti-Xa Level POC ABG pH 7.491 H POC ABG pCO2 POC ABG pO2 56 L VBG pH Sodium Potassium Chloride Carbon Dioxide BUN Creatinine Glucose POC Glucose 127 H Calcium Phosphorus Iron Total Creatine Kinase CK-MB (CK-2) Troponin T NT-Pro-B Natriuret Pep Albumin Triglycerides HDL Cholesterol Urine WBC (Auto) Urine Creatinine Urine Total Protein Crossmatch 12/16/17 12/16/17 12/16/17 12:05 12:05 12:15 WBC RBC Hgb 7.4 L Hct 22.8 L MCV MCH MCHC RDW Plt Count Lymph % (Auto) [place] % (Auto) [place] # Seg Neutrophils % Seg Neutrophils # D-Dimer Heparin Anti-Xa Level POC ABG pH POC ABG pCO2 POC ABG pO2 VBG pH Sodium Potassium Chloride Carbon Dioxide BUN Creatinine Glucose POC Glucose Calcium Phosphorus Iron Total Creatine Kinase CK-MB (CK-2) Troponin T NT-Pro-B Natriuret Pep Albumin Triglycerides HDL Cholesterol Urine WBC (Auto) > 182.0 H Urine Creatinine 81.7 H Urine Total Protein 493 H Crossmatch 12/16/17 12/16/17 12/17/17 17:52 18:08 00:11 WBC RBC Hgb 6.6 L 6.9 L Hct 20.6 L 20.8 L MCV MCH MCHC RDW Plt Count Lymph % (Auto) [place] % (Auto) [place] # Seg Neutrophils % Seg Neutrophils # D-Dimer Heparin Anti-Xa Level POC ABG pH POC ABG pCO2 POC ABG pO2 VBG pH Sodium Potassium Chloride Carbon Dioxide BUN Creatinine Glucose POC Glucose 127 H Calcium Phosphorus Iron Total Creatine Kinase CK-MB (CK-2) Troponin T NT-Pro-B Natriuret Pep Albumin Triglycerides HDL Cholesterol Urine WBC (Auto) Urine Creatinine Urine Total Protein Crossmatch 12/17/17 12/17/17 12/17/17 00:24 04:03 07:54 WBC 13.1 H RBC 3.06 L Hgb 8.1 L Hct 24.3 L MCV 79 L MCH 26 L MCHC RDW 18.6 H Plt Count Lymph % (Auto) 11.9 L [place] % (Auto) 8.6 H [place] # 1.1 H Seg Neutrophils % 77.9 H Seg Neutrophils # 10.2 H D-Dimer Heparin Anti-Xa Level POC ABG pH 7.453 H POC ABG pCO2 33.6 L POC ABG pO2 VBG pH Sodium Potassium Chloride Carbon Dioxide BUN Creatinine Glucose POC Glucose 126 H Calcium Phosphorus Iron Total Creatine Kinase CK-MB (CK-2) Troponin T NT-Pro-B Natriuret Pep Albumin Triglycerides HDL Cholesterol Urine WBC (Auto) Urine Creatinine Urine Total Protein Crossmatch 12/17/17 12/17/17 12/17/17 07:54 09:22 11:55 WBC RBC Hgb Hct MCV MCH MCHC RDW Plt Count Lymph % (Auto) [place] % (Auto) [place] # Seg Neutrophils % Seg Neutrophils # D-Dimer Heparin Anti-Xa Level POC ABG pH POC ABG pCO2 POC ABG pO2 VBG pH Sodium Potassium 3.4 L D Chloride Carbon Dioxide 21 L BUN 65 H Creatinine 6.4 H Glucose 133 H POC Glucose 112 H 119 H Calcium Phosphorus Iron Total Creatine Kinase CK-MB (CK-2) Troponin T NT-Pro-B Natriuret Pep Albumin Triglycerides HDL Cholesterol Urine WBC (Auto) Urine Creatinine Urine Total Protein Crossmatch 12/17/17 12/17/17 12/17/17 13:07 17:15 17:29 WBC RBC Hgb 9.3 L 9.8 L Hct 27.9 L 29.8 L MCV MCH MCHC RDW Plt Count Lymph % (Auto) [place] % (Auto) [place] # Seg Neutrophils % Seg Neutrophils # D-Dimer Heparin Anti-Xa Level POC ABG pH POC ABG pCO2 POC ABG pO2 VBG pH Sodium Potassium Chloride Carbon Dioxide BUN Creatinine Glucose POC Glucose 158 H Calcium Phosphorus Iron Total Creatine Kinase CK-MB (CK-2) Troponin T NT-Pro-B Natriuret Pep Albumin Triglycerides HDL Cholesterol Urine WBC (Auto) Urine Creatinine Urine Total Protein Crossmatch 12/18/17 12/18/17 12/18/17 00:03 00:28 04:44 WBC RBC Hgb 9.9 L Hct 29.9 L MCV MCH MCHC RDW Plt Count Lymph % (Auto) [place] % (Auto) [place] # Seg Neutrophils % Seg Neutrophils # D-Dimer Heparin Anti-Xa Level POC ABG pH 7.497 H POC ABG pCO2 27.0 L POC ABG pO2 136 H VBG pH Sodium Potassium Chloride Carbon Dioxide BUN Creatinine Glucose POC Glucose 109 H Calcium Phosphorus Iron Total Creatine Kinase CK-MB (CK-2) Troponin T NT-Pro-B Natriuret Pep Albumin Triglycerides HDL Cholesterol Urine WBC (Auto) Urine Creatinine Urine Total Protein Crossmatch 12/18/17 12/18/17 12/18/17 05:12 05:12 11:55 WBC 14.2 H RBC Hgb 9.8 L Hct 29.7 L MCV 81 L MCH 27 L MCHC RDW 18.8 H Plt Count Lymph % (Auto) 12.3 L [place] % (Auto) 9.4 H [place] # 1.3 H Seg Neutrophils % 75.5 H Seg Neutrophils # 10.7 H D-Dimer Heparin Anti-Xa Level POC ABG pH POC ABG pCO2 POC ABG pO2 VBG pH Sodium Potassium Chloride Carbon Dioxide 19 L BUN 55 H Creatinine 6.0 H Glucose 112 H POC Glucose 126 H Calcium Phosphorus Iron Total Creatine Kinase CK-MB (CK-2) Troponin T NT-Pro-B Natriuret Pep Albumin Triglycerides HDL Cholesterol Urine WBC (Auto) Urine Creatinine Urine Total Protein Crossmatch 12/18/17 12/19/17 12/19/17 21:34 05:01 05:10 WBC 11.9 H RBC Hgb 9.5 L Hct 30.1 L MCV 82 L MCH 26 L MCHC RDW 19.0 H Plt Count Lymph % (Auto) [place] % (Auto) [place] # Seg Neutrophils % Seg Neutrophils # D-Dimer Heparin Anti-Xa Level POC ABG pH POC ABG pCO2 29.8 L POC ABG pO2 116 H VBG pH Sodium Potassium Chloride Carbon Dioxide BUN Creatinine Glucose POC Glucose 120 H Calcium Phosphorus Iron Total Creatine Kinase CK-MB (CK-2) Troponin T NT-Pro-B Natriuret Pep Albumin Triglycerides HDL Cholesterol Urine WBC (Auto) Urine Creatinine Urine Total Protein Crossmatch 12/19/17 12/19/17 12/19/17 05:10 05:10 07:15 WBC RBC Hgb Hct MCV MCH MCHC RDW Plt Count Lymph % (Auto) [place] % (Auto) [place] # Seg Neutrophils % Seg Neutrophils # D-Dimer Heparin Anti-Xa Level POC ABG pH POC ABG pCO2 POC ABG pO2 VBG pH Sodium Potassium Chloride 95.9 L Carbon Dioxide 18 L BUN 90 H Creatinine 9.2 H D Glucose 140 H POC Glucose 130 H Calcium Phosphorus 11.90 H Iron Total Creatine Kinase CK-MB (CK-2) Troponin T NT-Pro-B Natriuret Pep Albumin Triglycerides 440 H HDL Cholesterol Urine WBC (Auto) Urine Creatinine Urine Total Protein Crossmatch 12/19/17 12/19/17 12/19/17 11:52 15:36 19:17 WBC RBC Hgb 10.3 L Hct 31.1 L MCV MCH MCHC RDW Plt Count Lymph % (Auto) [place] % (Auto) [place] # Seg Neutrophils % Seg Neutrophils # D-Dimer Heparin Anti-Xa Level POC ABG pH POC ABG pCO2 POC ABG pO2 VBG pH Sodium Potassium Chloride Carbon Dioxide BUN Creatinine Glucose POC Glucose 148 H 127 H Calcium Phosphorus Iron Total Creatine Kinase CK-MB (CK-2) Troponin T NT-Pro-B Natriuret Pep Albumin Triglycerides HDL Cholesterol Urine WBC (Auto) Urine Creatinine Urine Total Protein Crossmatch 12/19/17 12/19/17 12/20/17 19:17 23:01 02:07 WBC RBC Hgb Hct MCV MCH MCHC RDW Plt Count Lymph % (Auto) [place] % (Auto) [place] # Seg Neutrophils % Seg Neutrophils # D-Dimer Heparin Anti-Xa Level < 0.10 L 0.77 H POC ABG pH POC ABG pCO2 POC ABG pO2 VBG pH Sodium Potassium Chloride Carbon Dioxide BUN Creatinine Glucose POC Glucose 151 H Calcium Phosphorus Iron Total Creatine Kinase CK-MB (CK-2) Troponin T NT-Pro-B Natriuret Pep Albumin Triglycerides HDL Cholesterol Urine WBC (Auto) Urine Creatinine Urine Total Protein Crossmatch 12/20/17 12/20/17 02:09 04:03 WBC RBC Hgb Hct MCV MCH MCHC RDW Plt Count Lymph % (Auto) [place] % (Auto) [place] # Seg Neutrophils % Seg Neutrophils # D-Dimer Heparin Anti-Xa Level POC ABG pH 7.308 L POC ABG pCO2 31.1 L POC ABG pO2 133 H VBG pH Sodium 147 H Potassium Chloride 96.9 L Carbon Dioxide 14 L BUN 116 H Creatinine 11.6 H Glucose 109 H POC Glucose Calcium Phosphorus Iron Total Creatine Kinase CK-MB (CK-2) Troponin T NT-Pro-B Natriuret Pep Albumin Triglycerides HDL Cholesterol Urine WBC (Auto) Urine Creatinine Urine Total Protein Crossmatch
--- NOTE | 2017-12-20 09:16 | Progress Note ---
Assessment and Plan Acute respiratory failure intubated on the vent Acute on chronic renal failure s/p urgent dialysis Anemia s/p transfusion of PRBCs Acute systolic heart failure EF 40-45% by echo Hypertension Conservative cardiac management. Subjective Date of service: 12/20/17 Principal diagnosis: BALDO on CKD Interval history: Remains intubated on the vent. Objective Vital Signs Temp Pulse Pulse Resp Resp BP Pulse Ox 12/20/17 08:00 99.1 F 12/20/17 07:55 110 H 16 12/20/17 07:40 110 H 110 H 17 16 150/80 98 12/20/17 06:45 103 H 187/82 12/20/17 06:00 103 H 22 174/93 98 12/20/17 05:51 101 H 174/95 12/20/17 05:00 100 H 22 153/93 98 12/20/17 04:02 105 H 170/92 98 12/20/17 04:00 98.8 F 105 H 24 170/92 99 12/20/17 03:00 103 H 22 156/90 99 12/20/17 02:32 96 H 12/20/17 02:14 96 H 172/108 12/20/17 02:00 95 H 22 172/108 100 12/20/17 01:00 100 H 22 156/96 99 12/20/17 00:00 98.9 F 94 H 22 163/91 99 12/19/17 23:32 93 H 22 157/96 99 12/19/17 23:27 95 H 162/91 99 12/19/17 23:01 95 H 144/87 12/19/17 23:00 96 H 22 144/87 100 12/19/17 22:00 95 H 22 147/89 99 12/19/17 21:00 97 H 22 127/86 99 12/19/17 20:18 99 H 21 12/19/17 20:03 100 H 97 H 22 21 131/85 99 12/19/17 20:00 98.5 F 97 H 13 131/85 99 12/19/17 19:00 100 H 12 132/88 99 12/19/17 18:00 98 H 16 123/81 97 12/19/17 17:45 92 H 11 L 123/81 97 12/19/17 17:30 93 H 12 122/72 96 09/18/18 17:15 93 H 14 154/94 96 09/18/18 17:01 91 H 166/92 09/18/18 17:00 91 H 14 166/92 99 /18/18 16:45 92 H 13 166/92 97 18/18 16:30 91 H 17 144/88 98 18/18 16:15 91 H 15 148/91 99 /18/18 16:00 95 H 16 149/99 99 18/18 15:58 98.6 F 1818 15:45 88 12 146/90 99 18/18 15:30 87 14 140/87 98 18/18 15:15 91 H 12 144/90 98 18/18 15:00 95 H 25 H 144/90 97 18/18 14:49 89 135/90 18/18 14:45 89 16 135/90 18/18 14:31 99 H 17 135/87 94 18/18 14:23 93 H 20 18/18 14:15 84 18 111/75 98 18/18 14:13 86 22 18/18 14:10 84 22 111/75 99 /18/18 14:00 85 22 111/75 98 18/18 13:45 81 22 103/68 100 18/18 13:30 88 22 108/71 98 18/18 13:15 90 22 129/80 18/18 13:00 93 H 22 125/79 /18/18 12:45 91 H 22 123/78 95 18/18 12:30 84 22 132/72 96 18/18 12:15 89 22 139/82 95 18/18 12:00 98.5 F 88 22 136/93 97 /18/18 11:45 93 H 22 147/87 95 /18/18 11:35 91 H 147/87 98 /18/18 11:30 92 H 22 147/87 95 /18/18 11:15 92 H 22 135/83 96 18/18 11:00 93 H 22 143/87 94 /18/18 10:45 95 H 22 145/83 98 /18/18 10:30 98 H 20 159/94 95 18/18 10:15 92 H 22 154/93 92 12/19/17 10:00 96 H 22 153/93 96 12/19/17 09:53 98 H 129/90 12/19/17 09:45 100 H 22 129/90 12/19/17 09:31 97 H 19 154/84 96 - Physical Examination General: Other (intubtaed on mechanical ventilator) Cardiac: Positive: Reg Rate and Rhythm - Labs and Meds Coagulation 12/19/17 Range/Units 19:17 PT 14.3 (12.2-14.9) Sec. INR 1.05 (0.87-1.13) APTT 27.9 (24.2-36.6) Sec. CBC 12/19/17 Range/Units 19:17 Hgb 10.3 L (11.8-15.2) gm/dl Hct 31.1 L (35.5-45.6) % Plt Count 382 (140-440) K/mm3 Comprehensive Metabolic Panel 12/20/17 Range/Units 02:09 Sodium 147 H (137-145) mmol/L Potassium 4.4 (3.6-5.0) mmol/L Chloride 96.9 L (98-107) mmol/L Carbon Dioxide 14 L (22-30) mmol/L BUN 116 H (9-20) mg/dL Creatinine 11.6 H (0.8-1.5) mg/dL Glucose 109 H (75-100) mg/dL Calcium 9.9 (8.4-10.2) mg/dL
[2017-12-20] MEDS: COREG PO SCH ×2 (09:22→21:54)
[2017-12-20 09:53] LABS: Hepatitis A Antibody IgM NonReactive (NonReactive)
[2017-12-20] MEDS ORDERED: NACL 0.9% 100 ML IV PRN (11:19)
[2017-12-20] MEDS: HumaLOG SUB-Q SCH ×2 (12:17→18:05)
[2017-12-20] MEDS: PROTONIX (nf) FEEDTUBE SCH ×2 (12:19→21:53)
[2017-12-20] MEDS: SODIUM CHLORIDE FLUSH SYRINGE 10 ML IV SCH (12:21)
--- NOTE | 2017-12-20 12:54 | Gastroenterology Progress Note ---
Assessment and Plan 1.iron deficiency anemia -CT negative for intra-abdominal bleed -KUB negative -HGB 10.3-s/p transfusion -continue to monitor H/H and transfuse as needed -etiology unclear -patient now with right LE DVT on heparin drip w/ no active signs of bleeding overnight or this am -okay to continue anticoagulation as needed -will plan endoscopic evaluation with EGD/colonoscopy electively when stable, unless overt bleeding develops -continue PPI and supportive care -will follow Subjective Date of service: 12/20/17 Principal diagnosis: anemia Interval history: No active signs of bleeding overnight or this am per nursing. Objective - Constitutional Vitals: Temp Pulse Resp BP Pulse Ox 98.7 F 104 H 19 164/95 97 12/20/17 12:00 12/20/17 12:00 12/20/17 12:00 12/20/17 12:00 12/20/17 12:00 General appearance: no acute distress, other (intubaed on vent) - Respiratory Respiratory: bilateral: CTA (anterior) - Cardiovascular Rhythm: other (tachycardia) - Gastrointestinal General gastrointestinal: Present: soft, distended, normal bowel sounds - Labs CBC & Chem 7: 12/19/17 19:17 12/20/17 02:09 Labs: Laboratory Results - last 24 hr 12/16/17 12/19/17 12/19/17 04:47 15:36 19:17 Hgb 10.3 L Hct 31.1 L Plt Count 382 PT INR APTT Heparin Anti-Xa Level POC ABG pH POC ABG pCO2 POC ABG pO2 POC ABG HCO3 POC ABG Total CO2 POC ABG O2 Sat POC ABG Base Excess FiO2 Sodium Potassium Chloride Carbon Dioxide Anion Gap BUN Creatinine Estimated GFR BUN/Creatinine Ratio Glucose POC Glucose 127 H Calcium Hepatitis A IgM Ab Nonreactive 12/19/17 12/19/17 12/19/17 19:17 19:17 23:01 Hgb Hct Plt Count PT 14.3 INR 1.05 APTT 27.9 Heparin Anti-Xa Level < 0.10 L POC ABG pH POC ABG pCO2 POC ABG pO2 POC ABG HCO3 POC ABG Total CO2 POC ABG O2 Sat POC ABG Base Excess FiO2 Sodium Potassium Chloride Carbon Dioxide Anion Gap BUN Creatinine Estimated GFR BUN/Creatinine Ratio Glucose POC Glucose 151 H Calcium Hepatitis A IgM Ab 12/20/17 12/20/17 12/20/17 02:07 02:09 04:03 Hgb Hct Plt Count PT INR APTT Heparin Anti-Xa Level 0.77 H POC ABG pH 7.308 L POC ABG pCO2 31.1 L POC ABG pO2 133 H POC ABG HCO3 15.6 POC ABG Total CO2 17 POC ABG O2 Sat 99 POC ABG Base Excess -11 FiO2 40 Sodium 147 H Potassium 4.4 Chloride 96.9 L Carbon Dioxide 14 L Anion Gap 41 BUN 116 H Creatinine 11.6 H Estimated GFR 4 BUN/Creatinine Ratio 10 Glucose 109 H POC Glucose Calcium 9.9 Hepatitis A IgM Ab 12/20/17 12/20/17 12/20/17 09:55 11:11 11:43 Hgb Hct Plt Count PT INR APTT Heparin Anti-Xa Level 0.48 POC ABG pH 7.266 L POC ABG pCO2 32.6 L POC ABG pO2 99 POC ABG HCO3 14.8 POC ABG Total CO2 16 POC ABG O2 Sat 97 POC ABG Base Excess -12 FiO2 30 Sodium Potassium Chloride Carbon Dioxide Anion Gap BUN Creatinine Estimated GFR BUN/Creatinine Ratio Glucose POC Glucose 143 H Calcium Hepatitis A IgM Ab
--- NOTE | 2017-12-20 14:35 | Progress Note ---
Assessment and Plan - Patient Problems (1) Acute kidney injury superimposed on chronic kidney disease Current Visit: Yes Status: Acute Plan to address problem: Patient presumably has chronic kidney disease given the echogenic kidneys and nephrotic range proteinuria. Question chronic Glomerulonephritis. Acute kidney injury probably acute tubular necrosis versus acute on chronic cardiorenal syndrome. Patient tolerated dialysis with improvement in volume status. Patient did not receive dialysis yesterday. Worsening azotemia and acidosis noted. We'll arrange for dialysis today. Also return to vascular surgeon to change that is currently permacath. We'll dialyze again tomorrow and then follow-up. Arrangements for outpatient dialysis ongoing (2) Acute heart failure Current Visit: Yes Status: Acute Plan to address problem: Volume status improved with dialysis. Ejection fraction 40-45% on 2-D echo (3) Hypertensive chronic kidney disease with stage 5 chronic kidney disease or end stage renal disease Current Visit: Yes Status: Acute Plan to address problem: Follow-up blood pressure on current medications (4) Acidosis, metabolic Current Visit: Yes Status: Acute Plan to address problem: Improving with dialysis (5) Severe anemia Current Visit: Yes Status: Chronic Plan to address problem: Hemoglobin improved with packed Red blood cell transfusions. Follow-up hemoglobin (6) Acute respiratory failure with hypoxia Current Visit: Yes Status: Acute Plan to address problem: Weaning per pulmonary. Subjective Date of service: 12/20/17 Principal diagnosis: anemia Interval history: Patient seen lying in bed in intensive care unit. He is intubated on ventilator. He is not on any vasopressors. He is off of sedation. He opens his eyes to stimuli. Objective - Exam Narrative Exam: Elderly male lying in bed intubated on ventilator HEENT: NCAT, endotracheal tube intact Neck: Supple, no venous distention CVS: S1S2 RRR with no murmur, rub or gallop Chest: Clear to auscultation Abdomen: Protuberant, soft, nontender, no organomegaly, bowel sounds are present Extremities: No edema Skin warm and dry, no rash Neuro: Sedated, intubated - Vital Signs Vital signs: Vital Signs - 12hr 12/20/17 12/20/17 12/20/17 03:00 04:00 04:02 Temperature 98.8 F Pulse Rate 103 H 105 H 105 H Pulse Rate [ Anterior Bilateral Throughout] Respiratory 22 24 Rate Respiratory Rate [Anterior Bilateral Throughout] Blood Pressure 156/90 170/92 170/92 O2 Sat by Pulse 99 99 98 Oximetry O2 Sat by Pulse Oximetry [ Anterior Bilateral Throughout] 12/20/17 12/20/17 12/20/17 05:00 05:51 06:00 Temperature Pulse Rate 100 H 101 H 103 H Pulse Rate [ Anterior Bilateral Throughout] Respiratory 22 22 Rate Respiratory Rate [Anterior Bilateral Throughout] Blood Pressure 153/93 174/95 174/93 O2 Sat by Pulse 98 98 Oximetry O2 Sat by Pulse Oximetry [ Anterior Bilateral Throughout] 12/20/17 12/20/17 12/20/17 06:45 07:00 07:40 Temperature Pulse Rate 103 H 108 H 110 H Pulse Rate [ 110 H Anterior Bilateral Throughout] Respiratory 22 17 Rate Respiratory 16 Rate [Anterior Bilateral Throughout] Blood Pressure 187/82 157/89 150/80 O2 Sat by Pulse 97 98 Oximetry O2 Sat by Pulse Oximetry [ Anterior Bilateral Throughout] 12/20/17 12/20/17 12/20/17 07:55 08:00 09:00 Temperature 99.1 F Pulse Rate 112 H 111 H Pulse Rate [ 110 H Anterior Bilateral Throughout] Respiratory 17 15 Rate Respiratory 16 Rate [Anterior Bilateral Throughout] Blood Pressure 173/85 159/86 O2 Sat by Pulse 97 97 Oximetry O2 Sat by Pulse Oximetry [ Anterior Bilateral Throughout] 12/20/17 12/20/17 12/20/17 09:22 10:00 11:00 Temperature Pulse Rate 111 H 106 H 108 H Pulse Rate [ Anterior Bilateral Throughout] Respiratory 15 14 Rate Respiratory Rate [Anterior Bilateral Throughout] Blood Pressure 154/84 160/78 141/90 O2 Sat by Pulse 97 97 Oximetry O2 Sat by Pulse Oximetry [ Anterior Bilateral Throughout] 12/20/17 12/20/17 12/20/17 11:25 12:00 12:59 Temperature 98.7 F Pulse Rate 107 H 104 H 103 H Pulse Rate [ Anterior Bilateral Throughout] Respiratory 19 Rate Respiratory Rate [Anterior Bilateral Throughout] Blood Pressure 157/93 164/95 173/95 O2 Sat by Pulse 97 97 Oximetry O2 Sat by Pulse Oximetry [ Anterior Bilateral Throughout] 12/20/17 12/20/17 12/20/17 13:00 13:38 13:42 Temperature 98.7 F Pulse Rate 102 H 108 H 109 H Pulse Rate [ Anterior Bilateral Throughout] Respiratory 22 17 Rate Respiratory Rate [Anterior Bilateral Throughout] Blood Pressure 180/91 140/77 140/77 O2 Sat by Pulse 98 Oximetry O2 Sat by Pulse 97 Oximetry [ Anterior Bilateral Throughout] 12/20/17 12/20/17 12/20/17 14:00 14:03 14:15 Temperature Pulse Rate 107 H 115 H Pulse Rate [ 116 H Anterior Bilateral Throughout] Respiratory Rate Respiratory 24 Rate [Anterior Bilateral Throughout] Blood Pressure 129/78 132/77 O2 Sat by Pulse Oximetry O2 Sat by Pulse Oximetry [ Anterior Bilateral Throughout] - Lab 12/19/17 19:17 12/20/17 02:09 Most recent lab results Calcium 9.9 mg/dL (8.4-10.2) 12/20/17 02:09 Phosphorus 11.90 mg/dL (2.5-4.5) H 12/19/17 05:10 Urine Creatinine 81.7 mg/dL (0.1-20.0) H 12/16/17 12:05 Urine Sodium 62 mmol/L 12/16/17 12:05 Urine Total Protein 493 mg/dL (5-11.8) H 12/16/17 12:05
--- NOTE | 2017-12-20 16:17 | Progress Note ---
Assessment and Plan Right LE DVT -cont on heparin drip - monitor h and h Acute respiratory failure with hypoxia -likely due to pulmonary edema from renal failure -s/p intubation, on MV -Off steroids -ABG improved -pulmonology following - plan for extubation soon Sepsis likely from PNA -cont IV abx -blood cultures negative so far Bilateral pneumonia -on IV Zosyn and Vanco -blood and sputum culture neg BALDO 2/2 acute on chronic cardio renal syndrome, ischemic ATN in the setting of severe anemia and sepsis -H/O CKD suspected -on HD s/p vascath placement -Neprology following Hyperkalemia, now hypokalemia -will monitor level and replete as needed Elevated d-dimer -VQ scan pending Severe anemia, probably sec to CKD/ESRD -s/p blood transfusion with 4 units of PRBC -Patient is to receive additional 2u of PRBC today -s/p CT abdomen and pelvis to assess for acute bleed, but no active source per GI -We will cont to monitor posttransfusion H&H Acute exacerbation of CHF (congestive heart failure), suspected -2d ECHO report showed EF 40-45% -cont volume removal by increased Ultrafiltration Elevated troponin probably secondary to demand ischemia -Cardiology following HTN -Coreg and PRN hydralazine started -monitor and adjust med as needed DVT prophylaxis on Heparin and GI prophylaxis on Protonix Disposition: Patient remains in critical condition, continue current management The high probability of a clinically significant, sudden or life threatening deterioration of the [multiple] system(s) required my full and direct attention , intervention and personal management. The aggregate critical care time was [] minutes. This time is in addition to time spent performing reported procedures but includes the following: [x] Data Review and interpretation [x] Patient assessment and monitoring of vital signs [x] Documentation [x] Medication orders and management Brief history: This is a 67 yo M with unknown past medical history, who was brought in to ER by EMS for progressive shortness of breath, associated with productive cough. As per EMS reports, Pt was placed on 100% nonrebreather and brought to the ER. CXR showed evidence of cardiomegaly and pulmonary edema, and since pt developed worsening respiratory failure with hypercapnia/hypoxia pt required intubation. Labs showed elevated WBC > 17, severe anemia with Hb as low as 4.9, elevated BUN/Cr at 76/7.1mg/dl along with hyperkalemia and metabolic acidosis. He was transfused and vascath placed for HD per renal. Hospitalist Physical exam: GENERAL: elderly male lying on bed, sedated. HEENT: Normocephalic. Atraumatic. No conjunctival congestion or icterus. Patient has moist mucous membranes. NECK: Supple. Trachea midline. CHEST/LUNGS: Clear to auscultated bilaterally, Intubated HEART/CARDIOVASCULAR: Regular in rate and rhythm. S1 and S2 positive. ABDOMEN: Abdomen is soft, nontender. Patient has normal bowel sounds. SKIN: There is no rash. Warm and dry. NEURO: sedated MUSCULOSKELETAL: No joint effusion or tenderness. EXTRIMITY: No edema, no cyanosis or clubbing. PSYCH: unable to assess Subjective Date of service: 12/20/17 Principal diagnosis: BALDO on CKD Interval history: Patient seen and examined. Medical records and medication list reviewed. No acute event overnight noted by the RN. getting HD at bedside Patient currently intubated and sedated Objective - Constitutional Vitals: Vital Signs - 12hr 12/20/17 12/20/17 12/20/17 05:00 05:51 06:00 Temperature Pulse Rate 100 H 101 H 103 H Pulse Rate [ Anterior Bilateral Throughout] Respiratory 22 22 Rate Respiratory Rate [Anterior Bilateral Throughout] Blood Pressure 153/93 174/95 174/93 O2 Sat by Pulse 98 98 Oximetry O2 Sat by Pulse Oximetry [ Anterior Bilateral Throughout] 12/20/17 12/20/17 12/20/17 06:45 07:00 07:40 Temperature Pulse Rate 103 H 108 H 110 H Pulse Rate [ 110 H Anterior Bilateral Throughout] Respiratory 22 17 Rate Respiratory 16 Rate [Anterior Bilateral Throughout] Blood Pressure 187/82 157/89 150/80 O2 Sat by Pulse 97 98 Oximetry O2 Sat by Pulse Oximetry [ Anterior Bilateral Throughout] 12/20/17 12/20/17 12/20/17 07:55 08:00 09:00 Temperature 99.1 F Pulse Rate 112 H 111 H Pulse Rate [ 110 H Anterior Bilateral Throughout] Respiratory 17 15 Rate Respiratory 16 Rate [Anterior Bilateral Throughout] Blood Pressure 173/85 159/86 O2 Sat by Pulse 97 97 Oximetry O2 Sat by Pulse Oximetry [ Anterior Bilateral Throughout] 12/20/17 12/20/17 12/20/17 09:22 10:00 11:00 Temperature Pulse Rate 111 H 106 H 108 H Pulse Rate [ Anterior Bilateral Throughout] Respiratory 15 14 Rate Respiratory Rate [Anterior Bilateral Throughout] Blood Pressure 154/84 160/78 141/90 O2 Sat by Pulse 97 97 Oximetry O2 Sat by Pulse Oximetry [ Anterior Bilateral Throughout] 12/20/17 12/20/17 12/20/17 11:25 12:00 12:59 Temperature 98.7 F Pulse Rate 107 H 104 H 103 H Pulse Rate [ Anterior Bilateral Throughout] Respiratory 19 Rate Respiratory Rate [Anterior Bilateral Throughout] Blood Pressure 157/93 164/95 173/95 O2 Sat by Pulse 97 97 Oximetry O2 Sat by Pulse Oximetry [ Anterior Bilateral Throughout] 12/20/17 12/20/17 12/20/17 13:00 13:38 13:42 Temperature 98.7 F Pulse Rate 102 H 108 H 109 H Pulse Rate [ Anterior Bilateral Throughout] Respiratory 22 17 Rate Respiratory Rate [Anterior Bilateral Throughout] Blood Pressure 180/91 140/77 140/77 O2 Sat by Pulse 98 Oximetry O2 Sat by Pulse 97 Oximetry [ Anterior Bilateral Throughout] 12/20/17 12/20/17 12/20/17 14:00 14:03 14:15 Temperature Pulse Rate 107 H 115 H Pulse Rate [ 116 H Anterior Bilateral Throughout] Respiratory Rate Respiratory 24 Rate [Anterior Bilateral Throughout] Blood Pressure 129/78 132/77 O2 Sat by Pulse Oximetry O2 Sat by Pulse Oximetry [ Anterior Bilateral Throughout] 12/20/17 12/20/17 12/20/17 14:30 14:43 14:45 Temperature Pulse Rate 117 H 106 H Pulse Rate [ 111 H Anterior Bilateral Throughout] Respiratory Rate Respiratory 23 Rate [Anterior Bilateral Throughout] Blood Pressure 126/72 119/78 O2 Sat by Pulse Oximetry O2 Sat by Pulse Oximetry [ Anterior Bilateral Throughout] 12/20/17 12/20/17 12/20/17 15:00 15:15 15:30 Temperature Pulse Rate 125 H 115 H 116 H Pulse Rate [ Anterior Bilateral Throughout] Respiratory Rate Respiratory Rate [Anterior Bilateral Throughout] Blood Pressure 128/85 144/76 136/82 O2 Sat by Pulse Oximetry O2 Sat by Pulse Oximetry [ Anterior Bilateral Throughout] 12/20/17 12/20/17 15:45 16:00 Temperature Pulse Rate 122 H 121 H Pulse Rate [ Anterior Bilateral Throughout] Respiratory Rate Respiratory Rate [Anterior Bilateral Throughout] Blood Pressure 127/92 114/78 O2 Sat by Pulse 98 Oximetry O2 Sat by Pulse Oximetry [ Anterior Bilateral Throughout] - Labs CBC & Chem 7: 12/19/17 19:17 12/20/17 02:09 Labs: Abnormal lab results 12/19/17 12/19/17 12/19/17 Range/Units 19:17 19:17 23:01 Hgb 10.3 L (11.8-15.2) gm/dl Hct 31.1 L (35.5-45.6) % Heparin Anti-Xa Level < 0.10 L (0.3-0.7) U.I./ml POC ABG pH (7.35-7.45) POC ABG pCO2 (35-45) POC ABG pO2 (80-105) Sodium (137-145) mmol/L Chloride (98-107) mmol/L Carbon Dioxide (22-30) mmol/L BUN (9-20) mg/dL Creatinine (0.8-1.5) mg/dL Glucose (75-100) mg/dL POC Glucose 151 H (70-105) 12/20/17 12/20/17 12/20/17 Range/Units 02:07 02:09 04:03 Hgb (11.8-15.2) gm/dl Hct (35.5-45.6) % Heparin Anti-Xa Level 0.77 H (0.3-0.7) U.I./ml POC ABG pH 7.308 L (7.35-7.45) POC ABG pCO2 31.1 L (35-45) POC ABG pO2 133 H (80-105) Sodium 147 H (137-145) mmol/L Chloride 96.9 L (98-107) mmol/L Carbon Dioxide 14 L (22-30) mmol/L BUN 116 H (9-20) mg/dL Creatinine 11.6 H (0.8-1.5) mg/dL Glucose 109 H (75-100) mg/dL POC Glucose (70-105) 12/20/17 12/20/17 12/20/17 Range/Units 11:11 11:43 16:08 Hgb (11.8-15.2) gm/dl Hct (35.5-45.6) % Heparin Anti-Xa Level (0.3-0.7) U.I./ml POC ABG pH 7.266 L (7.35-7.45) POC ABG pCO2 32.6 L (35-45) POC ABG pO2 (80-105) Sodium (137-145) mmol/L Chloride (98-107) mmol/L Carbon Dioxide (22-30) mmol/L BUN (9-20) mg/dL Creatinine (0.8-1.5) mg/dL Glucose (75-100) mg/dL POC Glucose 143 H 159 H (70-105)
[2017-12-20] MEDS: ATIVAN IV PRN (21:55)
--- NOTE | 2017-12-21 05:05 | XRay Report ---
FINAL REPORT PROCEDURE: XR CHEST 1V AP TECHNIQUE: Chest radiograph anteroposterior view. CPT 95311 HISTORY: follow up respiratory failure COMPARISON: 12/20/2017 FINDINGS: Heart is enlarged. There are no infiltrates, effusions or pneumothoraces. The endotracheal tube is in the mid trachea. The NG tube is in the stomach. The bony and soft tissue structures are normal. IMPRESSION: Heart is enlarged. There are no infiltrates, effusions or pneumothoraces. The endotracheal tube is in the mid trachea. The NG tube is in the stomach. .
[2017-12-21 05:25] LABS: Hematocrit 33.8 % (35.5-45.6); Hemoglobin 10.8 gm/dl (11.8-15.2); Mean Corpuscular HGB Conc 32 % (32-34); Mean Corpuscular Hemoglobin 26 pg (28-32); Mean Corpuscular Volume 81 fl (84-94); Platelet Count 436 K/mm3 (140-440); Red Blood Count 4.15 M/mm3 (3.65-5.03); Red Cell Distribution Width 19.4 % (13.2-15.2)
[2017-12-21 06:08] LABS: Calcium 8.8 mg/dL (8.4-10.2)
[2017-12-21] MEDS: NITRO-BID 2% TP SCH ×2 (06:15→20:12)
[2017-12-21] MEDS: SUBLIMAZE IV PRN (06:15)
--- NOTE | 2017-12-21 07:07 | Progress Note ---
Assessment and Plan Acute respiratory failure secondary to pulmonary edema. extubated.Stable on [place] oxygen DVT right lower extremity. IV heparin initiated Pulmonary edema likely from acute renal failure End stage renal disease.Had HD, nephrology following Hyperkalemia. Controlled Anemia. Recommendations Continue [place] oxygen. Monitor Continue IV heparin Monitor H&H hemodialysis per nephrology Monitor acidosis. 's adequate IS q 1-2 hr If residual are adequate, consider removal to NGT,laxative trial? No BM's last night Discussed with patient and staff in detail Critical care time was 31 minutes of [id number] evaluation and coordination of care Subjective Date of service: 12/21/17 Principal diagnosis: BALDO on CKD Interval history: Self extubated during SBT,intubated. Awake,following commands. Denies SOB or abdominal pain Objective Vital Signs - 12hr 12/20/17 12/20/17 12/20/17 19:41 19:56 20:00 Temperature 98.0 F Pulse Rate 117 H 117 H Pulse Rate [ 116 H 118 H Anterior Bilateral Throughout] Respiratory 22 Rate Respiratory 23 23 Rate [Anterior Bilateral Throughout] Blood Pressure 117/88 142/88 O2 Sat by Pulse 99 96 Oximetry 12/20/17 12/20/17 12/20/17 21:00 21:32 21:54 Temperature Pulse Rate 118 H 109 H 110 H Pulse Rate [ Anterior Bilateral Throughout] Respiratory 24 21 Rate Respiratory Rate [Anterior Bilateral Throughout] Blood Pressure 161/104 165/96 169/94 O2 Sat by Pulse 95 97 Oximetry 12/20/17 12/20/17 12/20/17 22:00 23:00 23:30 Temperature Pulse Rate 109 H 116 H 106 H Pulse Rate [ Anterior Bilateral Throughout] Respiratory 22 19 Rate Respiratory Rate [Anterior Bilateral Throughout] Blood Pressure 160/96 161/86 156/92 O2 Sat by Pulse 97 94 96 Oximetry 12/21/17 12/21/17 12/21/17 00:00 01:00 02:00 Temperature 98.8 F Pulse Rate 101 H 92 H 92 H Pulse Rate [ Anterior Bilateral Throughout] Respiratory 22 22 22 Rate Respiratory Rate [Anterior Bilateral Throughout] Blood Pressure 157/78 123/75 116/69 O2 Sat by Pulse 96 96 96 Oximetry 12/21/17 12/21/17 12/21/17 03:00 03:43 04:00 Temperature 98.5 F Pulse Rate 87 89 84 Pulse Rate [ Anterior Bilateral Throughout] Respiratory 22 22 Rate Respiratory Rate [Anterior Bilateral Throughout] Blood Pressure 129/80 134/79 144/81 O2 Sat by Pulse 98 98 99 Oximetry 12/21/17 12/21/17 12/21/17 05:00 06:00 06:15 Temperature Pulse Rate 88 83 84 Pulse Rate [ Anterior Bilateral Throughout] Respiratory 22 22 Rate Respiratory Rate [Anterior Bilateral Throughout] Blood Pressure 130/77 131/77 131/77 O2 Sat by Pulse 97 99 Oximetry Constitutional: no acute distress, alert Neck: supple Effort: normal Ascultation: Bilateral: clear, wheezes (faint, otherwise CTA) Percussion: Bilateral: not dull Cardiovascular: regular rate and rhythm Gastrointestinal: normoactive bowel sounds, soft, non-tender, other (no rebound tenderness, bowel sounds present,still looks somewhat distended) Integumentary: normal Extremities: no edema, pink and warm, pulses normal Neurologic: normal mental status, non-focal exam, pupils equal and round CBC and BMP: 12/21/17 04:45 12/21/17 04:45 ABG, PT/INR, D-dimer: ABG POC ABG pH 7.446 (7.35-7.45) 12/21/17 03:44 POC ABG pCO2 27.6 (35-45) L 12/21/17 03:44 POC ABG pO2 90 (80-105) 12/21/17 03:44 POC ABG HCO3 19.0 12/21/17 03:44 POC ABG Total CO2 20 12/21/17 03:44 POC ABG O2 Sat 97 12/21/17 03:44 PT/INR, D-dimer PT 14.3 Sec. (12.2-14.9) 12/19/17 19:17 INR 1.05 (0.87-1.13) 12/19/17 19:17 D-Dimer 1108.83 ng/mlDDU (0-234) H 12/15/17 17:16 Abnormal lab findings: Abnormal Labs 12/15/17 12/15/17 12/15/17 17:16 17:16 17:16 WBC 16.7 H RBC 2.12 L Hgb 4.9 L* Hct 16.0 L* MCV 76 L MCH 23 L MCHC 30 L RDW 17.3 H Plt Count 445 H Lymph % (Auto) 11.3 L Glenn % (Auto) 7.4 H Glenn # 1.2 H Seg Neutrophils % 80.2 H Seg Neutrophils # 13.4 H D-Dimer 1108.83 H Heparin Anti-Xa Level POC ABG pH POC ABG pCO2 POC ABG pO2 VBG pH Sodium Potassium 5.1 H Chloride Carbon Dioxide 18 L BUN 76 H Creatinine 7.1 H Glucose 148 H POC Glucose Calcium 8.2 L Phosphorus Iron Total Creatine Kinase 736 H CK-MB (CK-2) 7.7 H Troponin T 0.067 H NT-Pro-B Natriuret Pep Albumin Triglycerides 206 H HDL Cholesterol 29 L Urine WBC (Auto) Urine Creatinine Urine Total Protein Crossmatch 12/15/17 12/15/17 12/15/17 17:16 17:45 18:01 WBC RBC Hgb Hct MCV MCH MCHC RDW Plt Count Lymph % (Auto) Glenn % (Auto) Glenn # Seg Neutrophils % Seg Neutrophils # D-Dimer Heparin Anti-Xa Level POC ABG pH POC ABG pCO2 POC ABG pO2 VBG pH 7.204 L Sodium Potassium Chloride Carbon Dioxide BUN Creatinine Glucose POC Glucose Calcium Phosphorus Iron Total Creatine Kinase CK-MB (CK-2) Troponin T NT-Pro-B Natriuret Pep 21126 H Albumin Triglycerides HDL Cholesterol Urine WBC (Auto) Urine Creatinine Urine Total Protein Crossmatch See Detail 12/15/17 12/15/17 12/16/17 18:32 23:26 00:24 WBC RBC Hgb Hct MCV MCH MCHC RDW Plt Count Lymph % (Auto) Glenn % (Auto) Glenn # Seg Neutrophils % Seg Neutrophils # D-Dimer Heparin Anti-Xa Level POC ABG pH 7.324 L 7.142 L POC ABG pCO2 33.6 L 50.4 H POC ABG pO2 110 H 107 H VBG pH Sodium Potassium Chloride Carbon Dioxide BUN Creatinine Glucose POC Glucose Calcium Phosphorus Iron 37 L Total Creatine Kinase CK-MB (CK-2) Troponin T NT-Pro-B Natriuret Pep Albumin Triglycerides HDL Cholesterol Urine WBC (Auto) Urine Creatinine Urine Total Protein Crossmatch 12/16/17 12/16/17 12/16/17 03:41 03:43 03:43 WBC 16.3 H RBC 3.01 L Hgb 7.5 L Hct 24.3 L D MCV 81 L MCH 25 L MCHC 31 L RDW 17.7 H Plt Count Lymph % (Auto) 7.9 L Glenn % (Auto) 7.8 H Glenn # 1.3 H Seg Neutrophils % 83.7 H Seg Neutrophils # 13.7 H D-Dimer Heparin Anti-Xa Level POC ABG pH 7.211 L POC ABG pCO2 45.3 H POC ABG pO2 123 H VBG pH Sodium Potassium 5.3 H Chloride Carbon Dioxide 16 L BUN 76 H Creatinine 7.5 H Glucose 121 H POC Glucose Calcium 7.9 L Phosphorus Iron Total Creatine Kinase CK-MB (CK-2) Troponin T NT-Pro-B Natriuret Pep Albumin 3.6 L Triglycerides HDL Cholesterol Urine WBC (Auto) Urine Creatinine Urine Total Protein Crossmatch 12/16/17 12/16/17 12/16/17 10:11 11:10 11:41 WBC 17.6 H RBC 3.16 L Hgb 7.9 L Hct 24.5 L MCV 78 L MCH 25 L MCHC RDW 17.7 H Plt Count Lymph % (Auto) 8.6 L Glenn % (Auto) Glenn # 1.3 H Seg Neutrophils % 83.7 H Seg Neutrophils # 14.7 H D-Dimer Heparin Anti-Xa Level POC ABG pH 7.491 H POC ABG pCO2 POC ABG pO2 56 L VBG pH Sodium Potassium Chloride Carbon Dioxide BUN Creatinine Glucose POC Glucose 127 H Calcium Phosphorus Iron Total Creatine Kinase CK-MB (CK-2) Troponin T NT-Pro-B Natriuret Pep Albumin Triglycerides HDL Cholesterol Urine WBC (Auto) Urine Creatinine Urine Total Protein Crossmatch 12/16/17 12/16/17 12/16/17 12:05 12:05 12:15 WBC RBC Hgb 7.4 L Hct 22.8 L MCV MCH MCHC RDW Plt Count Lymph % (Auto) Glenn % (Auto) Glenn # Seg Neutrophils % Seg Neutrophils # D-Dimer Heparin Anti-Xa Level POC ABG pH POC ABG pCO2 POC ABG pO2 VBG pH Sodium Potassium Chloride Carbon Dioxide BUN Creatinine Glucose POC Glucose Calcium Phosphorus Iron Total Creatine Kinase CK-MB (CK-2) Troponin T NT-Pro-B Natriuret Pep Albumin Triglycerides HDL Cholesterol Urine WBC (Auto) > 182.0 H Urine Creatinine 81.7 H Urine Total Protein 493 H Crossmatch 12/16/17 12/16/17 12/17/17 17:52 18:08 00:11 WBC RBC Hgb 6.6 L 6.9 L Hct 20.6 L 20.8 L MCV MCH MCHC RDW Plt Count Lymph % (Auto) Glenn % (Auto) Glenn # Seg Neutrophils % Seg Neutrophils # D-Dimer Heparin Anti-Xa Level POC ABG pH POC ABG pCO2 POC ABG pO2 VBG pH Sodium Potassium Chloride Carbon Dioxide BUN Creatinine Glucose POC Glucose 127 H Calcium Phosphorus Iron Total Creatine Kinase CK-MB (CK-2) Troponin T NT-Pro-B Natriuret Pep Albumin Triglycerides HDL Cholesterol Urine WBC (Auto) Urine Creatinine Urine Total Protein Crossmatch 12/17/17 12/17/17 12/17/17 00:24 04:03 07:54 WBC 13.1 H RBC 3.06 L Hgb 8.1 L Hct 24.3 L MCV 79 L MCH 26 L MCHC RDW 18.6 H Plt Count Lymph % (Auto) 11.9 L Glenn % (Auto) 8.6 H Glenn # 1.1 H Seg Neutrophils % 77.9 H Seg Neutrophils # 10.2 H D-Dimer Heparin Anti-Xa Level POC ABG pH 7.453 H POC ABG pCO2 33.6 L POC ABG pO2 VBG pH Sodium Potassium Chloride Carbon Dioxide BUN Creatinine Glucose POC Glucose 126 H Calcium Phosphorus Iron Total Creatine Kinase CK-MB (CK-2) Troponin T NT-Pro-B Natriuret Pep Albumin Triglycerides HDL Cholesterol Urine WBC (Auto) Urine Creatinine Urine Total Protein Crossmatch 12/17/17 12/17/17 12/17/17 07:54 09:22 11:55 WBC RBC Hgb Hct MCV MCH MCHC RDW Plt Count Lymph % (Auto) Glenn % (Auto) Glenn # Seg Neutrophils % Seg Neutrophils # D-Dimer Heparin Anti-Xa Level POC ABG pH POC ABG pCO2 POC ABG pO2 VBG pH Sodium Potassium 3.4 L D Chloride Carbon Dioxide 21 L BUN 65 H Creatinine 6.4 H Glucose 133 H POC Glucose 112 H 119 H Calcium Phosphorus Iron Total Creatine Kinase CK-MB (CK-2) Troponin T NT-Pro-B Natriuret Pep Albumin Triglycerides HDL Cholesterol Urine WBC (Auto) Urine Creatinine Urine Total Protein Crossmatch 12/17/17 12/17/17 12/17/17 13:07 17:15 17:29 WBC RBC Hgb 9.3 L 9.8 L Hct 27.9 L 29.8 L MCV MCH MCHC RDW Plt Count Lymph % (Auto) Glenn % (Auto) Glenn # Seg Neutrophils % Seg Neutrophils # D-Dimer Heparin Anti-Xa Level POC ABG pH POC ABG pCO2 POC ABG pO2 VBG pH Sodium Potassium Chloride Carbon Dioxide BUN Creatinine Glucose POC Glucose 158 H Calcium Phosphorus Iron Total Creatine Kinase CK-MB (CK-2) Troponin T NT-Pro-B Natriuret Pep Albumin Triglycerides HDL Cholesterol Urine WBC (Auto) Urine Creatinine Urine Total Protein Crossmatch 12/18/17 12/18/17 12/18/17 00:03 00:28 04:44 WBC RBC Hgb 9.9 L Hct 29.9 L MCV MCH MCHC RDW Plt Count Lymph % (Auto) Glenn % (Auto) Glenn # Seg Neutrophils % Seg Neutrophils # D-Dimer Heparin Anti-Xa Level POC ABG pH 7.497 H POC ABG pCO2 27.0 L POC ABG pO2 136 H VBG pH Sodium Potassium Chloride Carbon Dioxide BUN Creatinine Glucose POC Glucose 109 H Calcium Phosphorus Iron Total Creatine Kinase CK-MB (CK-2) Troponin T NT-Pro-B Natriuret Pep Albumin Triglycerides HDL Cholesterol Urine WBC (Auto) Urine Creatinine Urine Total Protein Crossmatch 12/18/17 12/18/17 12/18/17 05:12 05:12 11:55 WBC 14.2 H RBC Hgb 9.8 L Hct 29.7 L MCV 81 L MCH 27 L MCHC RDW 18.8 H Plt Count Lymph % (Auto) 12.3 L Glenn % (Auto) 9.4 H Glenn # 1.3 H Seg Neutrophils % 75.5 H Seg Neutrophils # 10.7 H D-Dimer Heparin Anti-Xa Level POC ABG pH POC ABG pCO2 POC ABG pO2 VBG pH Sodium Potassium Chloride Carbon Dioxide 19 L BUN 55 H Creatinine 6.0 H Glucose 112 H POC Glucose 126 H Calcium Phosphorus Iron Total Creatine Kinase CK-MB (CK-2) Troponin T NT-Pro-B Natriuret Pep Albumin Triglycerides HDL Cholesterol Urine WBC (Auto) Urine Creatinine Urine Total Protein Crossmatch 12/18/17 12/19/17 12/19/17 21:34 05:01 05:10 WBC 11.9 H RBC Hgb 9.5 L Hct 30.1 L MCV 82 L MCH 26 L MCHC RDW 19.0 H Plt Count Lymph % (Auto) Glenn % (Auto) Glenn # Seg Neutrophils % Seg Neutrophils # D-Dimer Heparin Anti-Xa Level POC ABG pH POC ABG pCO2 29.8 L POC ABG pO2 116 H VBG pH Sodium Potassium Chloride Carbon Dioxide BUN Creatinine Glucose POC Glucose 120 H Calcium Phosphorus Iron Total Creatine Kinase CK-MB (CK-2) Troponin T NT-Pro-B Natriuret Pep Albumin Triglycerides HDL Cholesterol Urine WBC (Auto) Urine Creatinine Urine Total Protein Crossmatch 12/19/17 12/19/17 12/19/17 05:10 05:10 07:15 WBC RBC Hgb Hct MCV MCH MCHC RDW Plt Count Lymph % (Auto) Glenn % (Auto) Glenn # Seg Neutrophils % Seg Neutrophils # D-Dimer Heparin Anti-Xa Level POC ABG pH POC ABG pCO2 POC ABG pO2 VBG pH Sodium Potassium Chloride 95.9 L Carbon Dioxide 18 L BUN 90 H Creatinine 9.2 H D Glucose 140 H POC Glucose 130 H Calcium Phosphorus 11.90 H Iron Total Creatine Kinase CK-MB (CK-2) Troponin T NT-Pro-B Natriuret Pep Albumin Triglycerides 440 H HDL Cholesterol Urine WBC (Auto) Urine Creatinine Urine Total Protein Crossmatch 12/19/17 12/19/17 12/19/17 11:52 15:36 19:17 WBC RBC Hgb 10.3 L Hct 31.1 L MCV MCH MCHC RDW Plt Count Lymph % (Auto) Glenn % (Auto) Glenn # Seg Neutrophils % Seg Neutrophils # D-Dimer Heparin Anti-Xa Level POC ABG pH POC ABG pCO2 POC ABG pO2 VBG pH Sodium Potassium Chloride Carbon Dioxide BUN Creatinine Glucose POC Glucose 148 H 127 H Calcium Phosphorus Iron Total Creatine Kinase CK-MB (CK-2) Troponin T NT-Pro-B Natriuret Pep Albumin Triglycerides HDL Cholesterol Urine WBC (Auto) Urine Creatinine Urine Total Protein Crossmatch 12/19/17 12/19/17 12/20/17 19:17 23:01 02:07 WBC RBC Hgb Hct MCV MCH MCHC RDW Plt Count Lymph % (Auto) Glenn % (Auto) Glenn # Seg Neutrophils % Seg Neutrophils # D-Dimer Heparin Anti-Xa Level < 0.10 L 0.77 H POC ABG pH POC ABG pCO2 POC ABG pO2 VBG pH Sodium Potassium Chloride Carbon Dioxide BUN Creatinine Glucose POC Glucose 151 H Calcium Phosphorus Iron Total Creatine Kinase CK-MB (CK-2) Troponin T NT-Pro-B Natriuret Pep Albumin Triglycerides HDL Cholesterol Urine WBC (Auto) Urine Creatinine Urine Total Protein Crossmatch 12/20/17 12/20/17 12/20/17 02:09 04:03 07:52 WBC RBC Hgb Hct MCV MCH MCHC RDW Plt Count Lymph % (Auto) Glenn % (Auto) Glenn # Seg Neutrophils % Seg Neutrophils # D-Dimer Heparin Anti-Xa Level POC ABG pH 7.308 L POC ABG pCO2 31.1 L POC ABG pO2 133 H VBG pH Sodium 147 H Potassium Chloride 96.9 L Carbon Dioxide 14 L BUN 116 H Creatinine 11.6 H Glucose 109 H POC Glucose 131 H Calcium Phosphorus Iron Total Creatine Kinase CK-MB (CK-2) Troponin T NT-Pro-B Natriuret Pep Albumin Triglycerides HDL Cholesterol Urine WBC (Auto) Urine Creatinine Urine Total Protein Crossmatch 12/20/17 12/20/17 12/20/17 11:11 11:43 16:08 WBC RBC Hgb Hct MCV MCH MCHC RDW Plt Count Lymph % (Auto) Glenn % (Auto) Glenn # Seg Neutrophils % Seg Neutrophils # D-Dimer Heparin Anti-Xa Level POC ABG pH 7.266 L POC ABG pCO2 32.6 L POC ABG pO2 VBG pH Sodium Potassium Chloride Carbon Dioxide BUN Creatinine Glucose POC Glucose 143 H 159 H Calcium Phosphorus Iron Total Creatine Kinase CK-MB (CK-2) Troponin T NT-Pro-B Natriuret Pep Albumin Triglycerides HDL Cholesterol Urine WBC (Auto) Urine Creatinine Urine Total Protein Crossmatch 12/21/17 12/21/17 12/21/17 03:44 04:45 04:45 WBC 13.7 H RBC Hgb 10.8 L Hct 33.8 L MCV 81 L MCH 26 L MCHC RDW 19.4 H Plt Count Lymph % (Auto) Glenn % (Auto) Glenn # Seg Neutrophils % Seg Neutrophils # D-Dimer Heparin Anti-Xa Level POC ABG pH POC ABG pCO2 27.6 L POC ABG pO2 VBG pH Sodium Potassium Chloride 93.9 L Carbon Dioxide 19 L BUN 82 H Creatinine 8.2 H Glucose 113 H POC Glucose Calcium Phosphorus Iron Total Creatine Kinase CK-MB (CK-2) Troponin T NT-Pro-B Natriuret Pep Albumin Triglycerides HDL Cholesterol Urine WBC (Auto) Urine Creatinine Urine Total Protein Crossmatch Chest x-ray: report reviewed, image reviewed
[2017-12-21 07:53] LABS: Basophils % (Manual) 0 % (0.0-1.8); Total Cells Counted 100
[2017-12-21 07:54] LABS: Anisocytosis 2+; Platelet Estimate Consistent w Auto
[2017-12-21 07:56] LABS: Poikilocytosis Few
[2017-12-21] MEDS: DUONEB *Not for PRN Use IH SCH ×3 (08:54→22:06)
[2017-12-21] MEDS: HumaLOG SUB-Q SCH ×5 (09:36→20:17)
--- NOTE | 2017-12-21 09:44 | Progress Note ---
Assessment and Plan Acute respiratory failure intubated on the vent Acute on chronic renal failure s/p urgent dialysis Anemia s/p transfusion of PRBCs Acute systolic heart failure EF 40-45% by echo Hypertension Subjective Date of service: 12/21/17 Principal diagnosis: BALDO on CKD Interval history: Patient is now extubated. No distress noted. Objective Vital Signs Temp Pulse Pulse Pulse Resp Resp BP 12/21/17 09:00 99 H 19 182/87 12/21/17 08:01 97 H 27 H 178/85 12/21/17 08:00 98.3 F 85 18 12/21/17 07:00 83 22 132/76 12/21/17 06:15 84 131/77 12/21/17 06:00 83 22 131/77 12/21/17 05:00 88 22 130/77 12/21/17 04:00 98.5 F 84 22 144/81 12/21/17 03:43 89 134/79 12/21/17 03:00 87 22 129/80 12/21/17 02:00 92 H 22 116/69 12/21/17 01:00 92 H 22 123/75 12/21/17 00:00 98.8 F 101 H 22 157/78 12/20/17 23:30 106 H 156/92 12/20/17 23:00 116 H 19 161/86 12/20/17 22:00 109 H 22 160/96 12/20/17 21:54 110 H 169/94 12/20/17 21:32 109 H 21 165/96 12/20/17 21:00 118 H 24 161/104 12/20/17 20:00 98.0 F 117 H 22 142/88 12/20/17 19:56 118 H 23 12/20/17 19:41 117 H 116 H 23 117/88 12/20/17 19:00 111 H 15 137/90 12/20/17 18:00 109 H 22 129/81 12/20/17 17:36 97.5 F L 112 H 22 154/77 12/20/17 17:30 112 H 154/77 12/20/17 17:14 120 H 126/70 12/20/17 17:00 122 H 20 131/80 12/20/17 16:45 122 H 131/80 12/20/17 16:30 120 H 133/62 12/20/17 16:15 121 H 123/84 12/20/17 16:00 97.5 F L 119 H 23 114/78 12/20/17 15:45 122 H 127/92 12/20/17 15:30 116 H 136/82 12/20/17 15:15 115 H 144/76 12/20/17 15:00 119 H 19 119/78 12/20/17 14:45 106 H 119/78 12/20/17 14:43 111 H 23 12/20/17 14:30 117 H 126/72 12/20/17 14:15 115 H 132/77 12/20/17 14:03 107 H 129/78 12/20/17 14:00 106 H 116 H 22 24 124/76 12/20/17 13:42 109 H 140/77 12/20/17 13:38 98.7 F 108 H 17 140/77 12/20/17 13:00 102 H 22 180/91 12/20/17 12:59 103 H 173/95 12/20/17 12:00 98.7 F 104 H 19 164/95 12/20/17 11:25 107 H 157/93 12/20/17 11:00 108 H 14 141/90 12/20/17 10:00 106 H 15 160/78 Pulse Ox Pulse Ox 12/21/17 09:00 83 L 12/21/17 08:01 98 12/21/17 08:00 99 12/21/17 07:00 100 12/21/17 06:15 12/21/17 06:00 99 12/21/17 05:00 97 12/21/17 04:00 99 12/21/17 03:43 98 12/21/17 03:00 98 12/21/17 02:00 96 12/21/17 01:00 96 12/21/17 00:00 96 12/20/17 23:30 96 12/20/17 23:00 94 12/20/17 22:00 97 12/20/17 21:54 12/20/17 21:32 97 12/20/17 21:00 95 12/20/17 20:00 96 12/20/17 19:56 12/20/17 19:41 99 12/20/17 19:00 98 12/20/17 18:00 99 12/20/17 17:36 98 12/20/17 17:30 12/20/17 17:14 12/20/17 17:00 99 12/20/17 16:45 12/20/17 16:30 12/20/17 16:15 12/20/17 16:00 98 12/20/17 15:45 12/20/17 15:30 12/20/17 15:15 12/20/17 15:00 98 12/20/17 14:45 12/20/17 14:43 12/20/17 14:30 12/20/17 14:15 12/20/17 14:03 12/20/17 14:00 98 12/20/17 13:42 12/20/17 13:38 97 12/20/17 13:00 98 12/20/17 12:59 12/20/17 12:00 97 12/20/17 11:25 97 12/20/17 11:00 97 12/20/17 10:00 97 - Physical Examination General: No Apparent Distress HEENT: Positive: PERRL Neck: Positive: trachea midline Cardiac: Positive: Reg Rate and Rhythm Neuro: Positive: Grossly Intact Extremities: Absent: edema - Labs and Meds CBC 12/21/17 Range/Units 04:45 WBC 13.7 H (4.5-11.0) K/mm3 RBC 4.15 (3.65-5.03) M/mm3 Hgb 10.8 L (11.8-15.2) gm/dl Hct 33.8 L (35.5-45.6) % Plt Count 436 (140-440) K/mm3 Comprehensive Metabolic Panel 12/21/17 Range/Units 04:45 Sodium 142 (137-145) mmol/L Potassium 4.1 (3.6-5.0) mmol/L Chloride 93.9 L (98-107) mmol/L Carbon Dioxide 19 L (22-30) mmol/L BUN 82 H (9-20) mg/dL Creatinine 8.2 H (0.8-1.5) mg/dL Glucose 113 H (75-100) mg/dL Calcium 8.8 (8.4-10.2) mg/dL
[2017-12-21] MEDS ORDERED: NACL 0.9% 100 ML IV PRN (09:48)
[2017-12-21] MEDS: SODIUM CHLORIDE FLUSH SYRINGE 10 ML IV SCH ×4 (10:00→23:32)
[2017-12-21] MEDS: COREG PO SCH ×2 (10:29→23:32)
[2017-12-21] MEDS: PROTONIX (nf) FEEDTUBE SCH (10:29)
[2017-12-21] MEDS: HALDOL IV PRN (10:30)
--- NOTE | 2017-12-21 10:44 | Progress Note ---
Assessment and Plan - Patient Problems (1) Acute kidney injury superimposed on chronic kidney disease Current Visit: Yes Status: Acute Plan to address problem: Patient presumably has chronic kidney disease given the echogenic kidneys and nephrotic range proteinuria. Question chronic Glomerulonephritis. Acute kidney injury probably acute tubular necrosis versus acute on chronic cardiorenal syndrome. Patient tolerated dialysis with improvement in volume status. Patient did receive dialysis yesterday with improved azotemia and acid base status. We'll dialyze again tomorrow and then follow-up. Arrangements for outpatient dialysis ongoing. Awaiting vascular follow-up for permacath placement (2) Acute heart failure Current Visit: Yes Status: Acute Plan to address problem: Volume status improved with dialysis. Ejection fraction 40-45% on 2-D echo (3) Hypertensive chronic kidney disease with stage 5 chronic kidney disease or end stage renal disease Current Visit: Yes Status: Acute Plan to address problem: Follow-up blood pressure on current medications (4) Acidosis, metabolic Current Visit: Yes Status: Acute Plan to address problem: Improving with dialysis (5) Severe anemia Current Visit: Yes Status: Chronic Plan to address problem: Hemoglobin improved with packed Red blood cell transfusions. Follow-up hemoglobin (6) Acute respiratory failure with hypoxia Current Visit: Yes Status: Acute Plan to address problem: Status post extubation. Continue monitoring by pulmonary Subjective Date of service: 12/21/17 Principal diagnosis: BALDO on CKD Interval history: Patient seen lying in bed in intensive care unit. He is extubated. He has no complaints. Denies pain. On oxygen via Ventimask Objective - Exam Narrative Exam: Elderly male lying in bed on oxygen via Ventimask HEENT: NCAT, pink oral mucous membranes Neck: Supple, no venous distention CVS: S1S2 RRR with no murmur, rub or gallop Chest: Clear to auscultation Abdomen: Protuberant, soft, nontender, no organomegaly, bowel sounds are present Extremities: No edema Skin warm and dry, no rash Neuro: Awake, looks dull, moving extremities - Vital Signs Vital signs: Vital Signs - 12hr 12/20/17 12/20/17 12/21/17 23:00 23:30 00:00 Temperature 98.8 F Pulse Rate 116 H 106 H 101 H Pulse Rate [ From Monitor] Respiratory 19 22 Rate Blood Pressure 161/86 156/92 157/78 O2 Sat by Pulse 94 96 96 Oximetry 12/21/17 12/21/17 12/21/17 01:00 02:00 03:00 Temperature Pulse Rate 92 H 92 H 87 Pulse Rate [ From Monitor] Respiratory 22 22 22 Rate Blood Pressure 123/75 116/69 129/80 O2 Sat by Pulse 96 96 98 Oximetry 12/21/17 12/21/17 12/21/17 03:43 04:00 05:00 Temperature 98.5 F Pulse Rate 89 84 88 Pulse Rate [ From Monitor] Respiratory 22 22 Rate Blood Pressure 134/79 144/81 130/77 O2 Sat by Pulse 98 99 97 Oximetry 12/21/17 12/21/17 12/21/17 06:00 06:15 07:00 Temperature Pulse Rate 83 84 83 Pulse Rate [ From Monitor] Respiratory 22 22 Rate Blood Pressure 131/77 131/77 132/76 O2 Sat by Pulse 99 100 Oximetry 12/21/17 12/21/17 12/21/17 08:00 08:01 09:00 Temperature 98.3 F Pulse Rate 97 H 99 H Pulse Rate [ 85 From Monitor] Respiratory 18 27 H 19 Rate Blood Pressure 178/85 182/87 O2 Sat by Pulse 99 98 83 L Oximetry 12/21/17 10:29 Temperature Pulse Rate 91 H Pulse Rate [ From Monitor] Respiratory Rate Blood Pressure 147/86 O2 Sat by Pulse Oximetry - Lab 12/21/17 04:45 12/21/17 04:45 Most recent lab results Calcium 8.8 mg/dL (8.4-10.2) 12/21/17 04:45 Phosphorus 11.90 mg/dL (2.5-4.5) H 12/19/17 05:10 Urine Creatinine 81.7 mg/dL (0.1-20.0) H 12/16/17 12:05 Urine Sodium 62 mmol/L 12/16/17 12:05 Urine Total Protein 493 mg/dL (5-11.8) H 12/16/17 12:05
--- NOTE | 2017-12-21 11:31 | Gastroenterology Progress Note ---
Assessment and Plan - Patient Problems (1) Iron deficiency anemia Current Visit: Yes Status: Acute Plan to address problem: - Will get EGD and colonoscopy when clinically improved (doubt could take prep at present given bowel disetention). (2) Nausea & vomiting Current Visit: Yes Status: Acute Plan to address problem: - Though KUB and CT in last 4 days not impressive, on physical exam, he is distended with a moderate amount of air (without pain). - Will re-check the KUB, and continue NG to LIS for now. Subjective Date of service: 12/21/17 Principal diagnosis: Anemia Interval history: The patient has been extubated. He has had no BM today, but no melena with BM yesterday (by report). He has had no hematemesis, but had poor tolerance of PO feeds, and had to have an NG to LIS for the last 3 days. Objective - Constitutional Vitals: Temp Pulse Resp BP Pulse Ox 98.3 F 91 H 15 147/86 83 L 12/21/17 08:00 12/21/17 11:21 12/21/17 11:21 12/21/17 10:29 12/21/17 09:00 General appearance: no acute distress - EENT ENT: other (NG with minimal brown output/no blood) - Respiratory Respiratory effort: normal Respiratory: bilateral: CTA - Cardiovascular Rhythm: regular Heart Sounds: Present: S1 & S2 - Gastrointestinal General gastrointestinal: Present: soft, non-tender, distended (Moderate air present) - Labs CBC & Chem 7: 12/21/17 04:45 12/21/17 04:45 Labs: Laboratory Results - last 24 hr 12/20/17 12/20/17 12/20/17 07:52 11:43 16:08 WBC RBC Hgb Hct MCV MCH MCHC RDW Plt Count [place] % (Auto) Add Manual Diff Total Counted Seg Neuts % (Manual) Band Neutrophils % Lymphocytes % (Manual) Reactive Lymphs % (Man) Monocytes % (Manual) Eosinophils % (Manual) Basophils % (Manual) Metamyelocytes % Myelocytes % Promyelocytes % Blast Cells % Nucleated RBC % Seg Neutrophils # Man Band Neutrophils # Lymphocytes # (Manual) Abs React Lymphs (Man) Monocytes # (Manual) Eosinophils # (Manual) Basophils # (Manual) Metamyelocytes # Myelocytes # Promyelocytes # Blast Cells # WBC Morphology Hypersegmented Neuts Hyposegmented Neuts Hypogranular Neuts Smudge Cells Toxic Granulation Toxic Vacuolation Dohle Bodies Pelger-Huet Anomaly Td Rods Platelet Estimate Clumped Platelets Plt Clumps, EDTA Large Platelets Giant Platelets Platelet Satelliting Plt Morphology Comment RBC Morphology Dimorphic RBCs Polychromasia Hypochromasia Poikilocytosis Anisocytosis Microcytosis Macrocytosis Spherocytes Pappenheimer Bodies Sickle Cells Target Cells Tear Drop Cells Ovalocytes Helmet Cells [place] Bodies Leggett Rings [place] Cells Bite Cells Crenated Cell Elliptocytes Acanthocytes (Spur) Rouleaux Hemoglobin C Crystals Schistocytes Malaria parasites [place] Bodies Hem Pathologist Commnt Heparin Anti-Xa Level POC ABG pH POC ABG pCO2 POC ABG pO2 POC ABG HCO3 POC ABG Total CO2 POC ABG O2 Sat POC ABG Base Excess FiO2 Sodium Potassium Chloride Carbon Dioxide Anion Gap BUN Creatinine Estimated GFR BUN/Creatinine Ratio Glucose POC Glucose 131 H 143 H 159 H Calcium 12/20/17 12/21/17 12/21/17 21:32 03:44 04:45 WBC 13.7 H RBC 4.15 Hgb 10.8 L Hct 33.8 L MCV 81 L MCH 26 L MCHC 32 RDW 19.4 H Plt Count 436 [place] % (Auto) Associate Producer Add Manual Diff Complete Total Counted 100 Seg Neuts % (Manual) 84.0 H Band Neutrophils % 0 Lymphocytes % (Manual) 6.0 L Reactive Lymphs % (Man) 0 Monocytes % (Manual) 9.0 H Eosinophils % (Manual) 1.0 Basophils % (Manual) 0 Metamyelocytes % 0 Myelocytes % 0 Promyelocytes % 0 Blast Cells % 0 Nucleated RBC % Not Reportable Seg Neutrophils # Man 11.5 H Band Neutrophils # 0.0 Lymphocytes # (Manual) 0.8 L Abs React Lymphs (Man) 0.0 Monocytes # (Manual) 1.2 H Eosinophils # (Manual) 0.1 Basophils # (Manual) 0.0 Metamyelocytes # 0.0 Myelocytes # 0.0 Promyelocytes # 0.0 Blast Cells # 0.0 WBC Morphology Not Reportable Hypersegmented Neuts Not Reportable Hyposegmented Neuts Not Reportable Hypogranular Neuts Not Reportable Smudge Cells Not Reportable Toxic Granulation Not Reportable Toxic Vacuolation Not Reportable Dohle Bodies Not Reportable Pelger-Huet Anomaly Not Reportable Td Rods Not Reportable Platelet Estimate Consistent w auto Clumped Platelets Not Reportable Plt Clumps, EDTA Not Reportable Large Platelets Not Reportable Giant Platelets Not Reportable Platelet Satelliting Not Reportable Plt Morphology Comment Not Reportable RBC Morphology Not Reportable Dimorphic RBCs Not Reportable Polychromasia Not Reportable Hypochromasia Not Reportable Poikilocytosis Few Anisocytosis 2+ Microcytosis 1+ Macrocytosis Not Reportable Spherocytes Not Reportable Pappenheimer Bodies Not Reportable Sickle Cells Not Reportable Target Cells Not Reportable Tear Drop Cells Not Reportable Ovalocytes Not Reportable Helmet Cells Not Reportable [place] Bodies Not Reportable [place] Rings Not Reportable [place] Cells Not Reportable Bite Cells Not Reportable Crenated Cell Not Reportable Elliptocytes Not Reportable Acanthocytes (Spur) Not Reportable Rouleaux Not Reportable Hemoglobin C Crystals Not Reportable Schistocytes Not Reportable Malaria parasites Not Reportable [place] Bodies Not Reportable Hem Pathologist Commnt No Heparin Anti-Xa Level POC ABG pH 7.446 POC ABG pCO2 27.6 L POC ABG pO2 90 POC ABG HCO3 19.0 POC ABG Total CO2 20 POC ABG O2 Sat 97 POC ABG Base Excess -5 FiO2 30 Sodium Potassium Chloride Carbon Dioxide Anion Gap BUN Creatinine Estimated GFR BUN/Creatinine Ratio Glucose POC Glucose 100 Calcium 12/21/17 12/21/17 12/21/17 04:45 08:08 09:35 WBC RBC Hgb Hct MCV MCH MCHC RDW Plt Count [place] % (Auto) Add Manual Diff Total Counted Seg Neuts % (Manual) Band Neutrophils % Lymphocytes % (Manual) Reactive Lymphs % (Man) Monocytes % (Manual) Eosinophils % (Manual) Basophils % (Manual) Metamyelocytes % Myelocytes % Promyelocytes % Blast Cells % Nucleated RBC % Seg Neutrophils # Man Band Neutrophils # Lymphocytes # (Manual) Abs React Lymphs (Man) Monocytes # (Manual) Eosinophils # (Manual) Basophils # (Manual) Metamyelocytes # Myelocytes # Promyelocytes # Blast Cells # WBC Morphology Hypersegmented Neuts Hyposegmented Neuts Hypogranular Neuts Smudge Cells Toxic Granulation Toxic Vacuolation Dohle Bodies Pelger-Huet Anomaly Td Rods Platelet Estimate Clumped Platelets Plt Clumps, EDTA Large Platelets Giant Platelets Platelet Satelliting Plt Morphology Comment RBC Morphology Dimorphic RBCs Polychromasia Hypochromasia Poikilocytosis Anisocytosis Microcytosis Macrocytosis Spherocytes Pappenheimer Bodies Sickle Cells Target Cells Tear Drop Cells Ovalocytes Helmet Cells [place] Bodies [place] Rings [place] Cells Bite Cells Crenated Cell Elliptocytes Acanthocytes (Spur) Rouleaux Hemoglobin C Crystals Schistocytes Malaria parasites [place] Bodies Hem Pathologist Commnt Heparin Anti-Xa Level 0.80 H POC ABG pH POC ABG pCO2 POC ABG pO2 POC ABG HCO3 POC ABG Total CO2 POC ABG O2 Sat POC ABG Base Excess FiO2 Sodium 142 Potassium 4.1 Chloride 93.9 L Carbon Dioxide 19 L Anion Gap 33 BUN 82 H Creatinine 8.2 H Estimated GFR 7 BUN/Creatinine Ratio 10 Glucose 113 H POC Glucose 123 H Calcium 8.8
--- NOTE | 2017-12-21 12:31 | XRay Report ---
AP ABDOMEN: HISTORY: Nausea and vomiting. The nasogastric tube terminates in the distal stomach or just within the duodenum. There is moderate gaseous distention of small and large bowel loops throughout the abdomen. The overall pattern is most consistent with an ileus. No large free air or space occupying mass is identified. Mild cardiomegaly and small pleural effusions are noted. IMPRESSION: Finding suggestive of an ileus.
--- NOTE | 2017-12-21 13:18 | Progress Note ---
Assessment and Plan Right LE DVT -cont on heparin drip - monitor h and h Acute respiratory failure with hypoxia -likely due to pulmonary edema from renal failure - required intubation with MV - Off steroids - ABG improved - pulmonology following - s/p extubation today - cont nebs and supplemental O2 Sepsis likely from PNA -cont IV abx -blood cultures negative so far Bilateral pneumonia -on IV Zosyn and Vanco -blood and sputum culture neg BALDO 2/2 acute on chronic cardio renal syndrome, ischemic ATN in the setting of severe anemia and sepsis -H/O CKD suspected -on HD s/p vascath placement -Neprology following Paralytic ilius - seen on todays abdominal xry - on NG suction, NPO - placed o D5NS @ 30ml/hr Hyperkalemia, now hypokalemia -will monitor level and replete as needed Elevated d-dimer -VQ scan pending Severe anemia, probably sec to CKD/ESRD -s/p blood transfusion with 4 units of PRBC -Patient is to receive additional 2u of PRBC today -s/p CT abdomen and pelvis to assess for acute bleed, but no active source per GI -We will cont to monitor posttransfusion H&H Acute exacerbation of CHF (congestive heart failure), suspected -2d ECHO report showed EF 40-45% -cont volume removal by increased Ultrafiltration Elevated troponin probably secondary to demand ischemia -Cardiology following HTN -Coreg and PRN hydralazine started -monitor and adjust med as needed DVT prophylaxis on Heparin and GI prophylaxis on Protonix Disposition: Patient remains in critical condition, continue current management Brief history: This is a 67 yo M with unknown past medical history, who was brought in to ER by EMS for progressive shortness of breath, associated with productive cough. As per EMS reports, Pt was placed on 100% nonrebreather and brought to the ER. CXR showed evidence of cardiomegaly and pulmonary edema, and since pt developed worsening respiratory failure with hypercapnia/hypoxia pt required intubation. Labs showed elevated WBC > 17, severe anemia with Hb as low as 4.9, elevated BUN/Cr at 76/7.1 mg/dl along with hyperkalemia and metabolic acidosis. He was transfused and vascath placed for HD per renal. Hospitalist Physical exam: GENERAL: elderly male lying on bed, alert awake HEENT: Normocephalic. Atraumatic. No conjunctival congestion or icterus. Patient has moist mucous membranes. NECK: Supple. Trachea midline. CHEST/LUNGS: Clear to auscultated bilaterally, HEART/CARDIOVASCULAR: Regular in rate and rhythm. S1 and S2 positive. ABDOMEN: Abdomen is distended, nontender. Patient has normal bowel sounds. SKIN: There is no rash. Warm and dry. NEURO: AAOx3, no focal deficit MUSCULOSKELETAL: No joint effusion or tenderness. EXTRIMITY: No edema, no cyanosis or clubbing. PSYCH: cooperative Subjective Date of service: 12/21/17 Principal diagnosis: Anemia Interval history: Patient seen and examined. Medical records and medication list reviewed. No acute event overnight noted by the RN. Patient self extubated himself Objective - Constitutional Vitals: Vital Signs - 12hr 12/21/17 12/21/17 12/21/17 02:00 03:00 03:43 Temperature Pulse Rate 92 H 87 89 Pulse Rate [ Anterior Bilateral Throughout] Pulse Rate [ From Monitor] Respiratory 22 22 Rate Respiratory Rate [Anterior Bilateral Throughout] Blood Pressure 116/69 129/80 134/79 O2 Sat by Pulse 96 98 98 Oximetry 12/21/17 12/21/17 12/21/17 04:00 05:00 06:00 Temperature 98.5 F Pulse Rate 84 88 83 Pulse Rate [ Anterior Bilateral Throughout] Pulse Rate [ From Monitor] Respiratory 22 22 22 Rate Respiratory Rate [Anterior Bilateral Throughout] Blood Pressure 144/81 130/77 131/77 O2 Sat by Pulse 99 97 99 Oximetry 12/21/17 12/21/17 12/21/17 06:15 07:00 07:45 Temperature Pulse Rate 84 83 Pulse Rate [ Anterior Bilateral Throughout] Pulse Rate [ From Monitor] Respiratory 22 Rate Respiratory Rate [Anterior Bilateral Throughout] Blood Pressure 131/77 132/76 O2 Sat by Pulse 100 98 Oximetry 12/21/17 12/21/17 12/21/17 08:00 08:01 08:50 Temperature 98.3 F Pulse Rate 97 H Pulse Rate [ 97 H Anterior Bilateral Throughout] Pulse Rate [ 85 From Monitor] Respiratory 18 27 H Rate Respiratory 21 Rate [Anterior Bilateral Throughout] Blood Pressure 178/85 O2 Sat by Pulse 99 98 Oximetry 12/21/17 12/21/17 12/21/17 09:00 10:00 10:29 Temperature Pulse Rate 99 H 96 H 91 H Pulse Rate [ Anterior Bilateral Throughout] Pulse Rate [ From Monitor] Respiratory 19 16 Rate Respiratory Rate [Anterior Bilateral Throughout] Blood Pressure 182/87 147/86 147/86 O2 Sat by Pulse 83 L 98 Oximetry 12/21/17 12/21/17 11:00 11:21 Temperature Pulse Rate 87 Pulse Rate [ 91 H Anterior Bilateral Throughout] Pulse Rate [ From Monitor] Respiratory 12 Rate Respiratory 15 Rate [Anterior Bilateral Throughout] Blood Pressure 118/72 O2 Sat by Pulse 96 Oximetry - Labs CBC & Chem 7: 12/21/17 04:45 12/21/17 04:45 Labs: Abnormal lab results 12/20/17 12/20/17 12/21/17 Range/Units 07:52 16:08 03:44 WBC (4.5-11.0) K/mm3 Hgb (11.8-15.2) gm/dl Hct (35.5-45.6) % MCV (84-94) fl MCH (28-32) pg RDW (13.2-15.2) % Seg Neuts % (Manual) (40.0-70.0) % Lymphocytes % (Manual) (13.4-35.0) % Monocytes % (Manual) (0.0-7.3) % Seg Neutrophils # Man (1.8-7.7) K/mm3 Lymphocytes # (Manual) (1.2-5.4) K/mm3 Monocytes # (Manual) (0.0-0.8) K/mm3 Heparin Anti-Xa Level (0.3-0.7) U.I./ml POC ABG pCO2 27.6 L (35-45) Chloride (98-107) mmol/L Carbon Dioxide (22-30) mmol/L BUN (9-20) mg/dL Creatinine (0.8-1.5) mg/dL Glucose (75-100) mg/dL POC Glucose 131 H 159 H (70-105) 12/21/17 12/21/17 12/21/17 Range/Units 04:45 04:45 08:08 WBC 13.7 H (4.5-11.0) K/mm3 Hgb 10.8 L (11.8-15.2) gm/dl Hct 33.8 L (35.5-45.6) % MCV 81 L (84-94) fl MCH 26 L (28-32) pg RDW 19.4 H (13.2-15.2) % Seg Neuts % (Manual) 84.0 H (40.0-70.0) % Lymphocytes % (Manual) 6.0 L (13.4-35.0) % Monocytes % (Manual) 9.0 H (0.0-7.3) % Seg Neutrophils # Man 11.5 H (1.8-7.7) K/mm3 Lymphocytes # (Manual) 0.8 L (1.2-5.4) K/mm3 Monocytes # (Manual) 1.2 H (0.0-0.8) K/mm3 Heparin Anti-Xa Level (0.3-0.7) U.I./ml POC ABG pCO2 (35-45) Chloride 93.9 L (98-107) mmol/L Carbon Dioxide 19 L (22-30) mmol/L BUN 82 H (9-20) mg/dL Creatinine 8.2 H (0.8-1.5) mg/dL Glucose 113 H (75-100) mg/dL POC Glucose 123 H (70-105) 12/21/17 12/21/17 Range/Units 09:35 12:11 WBC (4.5-11.0) K/mm3 Hgb (11.8-15.2) gm/dl Hct (35.5-45.6) % MCV (84-94) fl MCH (28-32) pg RDW (13.2-15.2) % Seg Neuts % (Manual) (40.0-70.0) % Lymphocytes % (Manual) (13.4-35.0) % Monocytes % (Manual) (0.0-7.3) % Seg Neutrophils # Man (1.8-7.7) K/mm3 Lymphocytes # (Manual) (1.2-5.4) K/mm3 Monocytes # (Manual) (0.0-0.8) K/mm3 Heparin Anti-Xa Level 0.80 H (0.3-0.7) U.I./ml POC ABG pCO2 (35-45) Chloride (98-107) mmol/L Carbon Dioxide (22-30) mmol/L BUN (9-20) mg/dL Creatinine (0.8-1.5) mg/dL Glucose (75-100) mg/dL POC Glucose 139 H (70-105)
--- NOTE | 2017-12-21 17:35 | Event Note ---
Date: 12/21/17 With improved mental status following self extubation. We'll plan on converting patient's right femoral PermCath into a right internal jugular vein tunneled hemodialysis catheter tomorrow area
[2017-12-21] MEDS: HEPARIN/ 0.45% NACL-25,000 UNIT/500 ML 25,000 UNIT/500 ML BAG IV SCH ×2 (18:35→20:28)
[2017-12-21] MEDS: PREVACID SOLUTAB FEEDTUBE SCH (23:32)
[2017-12-22] MEDS: HumaLOG SUB-Q SCH ×3 (00:04→07:26)
--- NOTE | 2017-12-22 03:45 | XRay Report ---
FINAL REPORT EXAM: XR CHEST 1V AP HISTORY: follow up respiratory failure TECHNIQUE: AP portable view of the chest. PRIORS: 12/20/2017 FINDINGS: The endotracheal tube has been removed. There is an NG tube in place which courses below the diaphragm and below the lower margin of the film. The cardiomediastinal silhouette appears normal. The lungs are hypoaerated but clear. The bones and soft tissues are unremarkable. IMPRESSION: Status post extubation. Hypo aerated lungs. No acute findings
[2017-12-22] MEDS: NITRO-BID 2% TP SCH ×2 (07:31→18:57)
[2017-12-22] MEDS ORDERED: ANCEF/STERILE WATER 2 GM/20 ML 2 GM/20 ML SYRINGE IV NR (08:00)
[2017-12-22] MEDS: DUONEB *Not for PRN Use IH SCH ×2 (08:51→15:12)
--- NOTE | 2017-12-22 10:53 | Progress Note ---
Assessment and Plan 67 y/o male with acute respiratory failure secondary to pulmonary edema, likely from acute renal failure and found to be profoundly anemic on admission. 1. Heme-positive DVT in right leg. GI seen and evaluated, ok with heparin so will continue. Once ileus resolves will need to be switched to oral therapy 2. GI-ileus, likely secondary to narcotics and lack of movement. Stopped all narcs and continue NGT with LIS. Daily KUB until resolution. Continue NPO status 3. Wean FiO2 as tolerated 4. Will monitor one more day in ICU, can likely transition out first thing in the am or sooner if bed is needed. Subjective Date of service: 12/22/17 Principal diagnosis: Anemia Interval history: Despite self extubation, patient maintained on Fentanyl drip. Stopped this am. Patient has evidence of ileus on KUB. NG tube to low intermittent suction. No family present. patient sleepy. Per PT, got up to bathroom yesterday and had a large amount of flatus but no stool. Reviewed GI note, they suggested starting heparin for DVT found in right lower ext given stable H/H. Remainder is negative. Objective Vital Signs - 12hr 12/21/17 12/22/17 12/22/17 23:00 00:00 00:07 Temperature 98.7 F Pulse Rate 93 H 96 H 97 H Pulse Rate [ 78 From Monitor] Respiratory 30 H 45 H 35 H Rate Blood Pressure 124/91 138/86 138/86 O2 Sat by Pulse 99 99 98 Oximetry 12/22/17 12/22/17 12/22/17 01:01 02:00 03:01 Temperature Pulse Rate 94 H 86 88 Pulse Rate [ From Monitor] Respiratory 37 H 24 19 Rate Blood Pressure 125/80 134/77 122/77 O2 Sat by Pulse 100 98 97 Oximetry 12/22/17 12/22/17 12/22/17 04:00 05:00 06:00 Temperature 98.7 F Pulse Rate 89 88 92 H Pulse Rate [ 78 From Monitor] Respiratory 34 H 30 H 31 H Rate Blood Pressure 152/96 130/87 153/96 O2 Sat by Pulse 97 98 98 Oximetry 12/22/17 12/22/17 12/22/17 07:00 08:00 09:00 Temperature Pulse Rate 93 H 81 Pulse Rate [ From Monitor] Respiratory Rate Blood Pressure 147/94 155/86 138/93 O2 Sat by Pulse 99 100 Oximetry Constitutional: no acute distress, alert ENT: other (orally intubated .Right central in position) Neck: supple Effort: normal Ascultation: Bilateral: clear, diminished breath sounds Percussion: Bilateral: not dull Cardiovascular: regular rate and rhythm Gastrointestinal: normoactive bowel sounds, soft, non-tender, other (no rebound tenderness, bowel sounds present,still looks somewhat distended) Integumentary: normal Extremities: no edema, pink and warm, pulses normal Neurologic: normal mental status, non-focal exam, pupils equal and round CBC and BMP: 12/21/17 04:45 12/21/17 04:45 ABG, PT/INR, D-dimer: ABG POC ABG pH 7.446 (7.35-7.45) 12/21/17 03:44 POC ABG pCO2 27.6 (35-45) L 12/21/17 03:44 POC ABG pO2 90 (80-105) 12/21/17 03:44 POC ABG HCO3 19.0 12/21/17 03:44 POC ABG Total CO2 20 12/21/17 03:44 POC ABG O2 Sat 97 12/21/17 03:44 PT/INR, D-dimer PT 14.3 Sec. (12.2-14.9) 12/19/17 19:17 INR 1.05 (0.87-1.13) 12/19/17 19:17 D-Dimer 1108.83 ng/mlDDU (0-234) H 12/15/17 17:16 Abnormal lab findings: Abnormal Labs 12/15/17 12/15/17 12/15/17 17:16 17:16 17:16 WBC 16.7 H RBC 2.12 L Hgb 4.9 L* Hct 16.0 L* MCV 76 L MCH 23 L MCHC 30 L RDW 17.3 H Plt Count 445 H Lymph % (Auto) 11.3 L [place] % (Auto) 7.4 H [place] # 1.2 H Seg Neutrophils % 80.2 H Seg Neuts % (Manual) Lymphocytes % (Manual) Monocytes % (Manual) Seg Neutrophils # 13.4 H Seg Neutrophils # Man Lymphocytes # (Manual) Monocytes # (Manual) D-Dimer 1108.83 H Heparin Anti-Xa Level POC ABG pH POC ABG pCO2 POC ABG pO2 VBG pH Sodium Potassium 5.1 H Chloride Carbon Dioxide 18 L BUN 76 H Creatinine 7.1 H Glucose 148 H POC Glucose Calcium 8.2 L Phosphorus Iron Total Creatine Kinase 736 H CK-MB (CK-2) 7.7 H Troponin T 0.067 H NT-Pro-B Natriuret Pep Albumin Triglycerides 206 H HDL Cholesterol 29 L Urine WBC (Auto) Urine Creatinine Urine Total Protein Crossmatch 12/15/17 12/15/17 12/15/17 17:16 17:45 18:01 WBC RBC Hgb Hct MCV MCH MCHC RDW Plt Count Lymph % (Auto) [place] % (Auto) [place] # Seg Neutrophils % Seg Neuts % (Manual) Lymphocytes % (Manual) Monocytes % (Manual) Seg Neutrophils # Seg Neutrophils # Man Lymphocytes # (Manual) Monocytes # (Manual) D-Dimer Heparin Anti-Xa Level POC ABG pH POC ABG pCO2 POC ABG pO2 VBG pH 7.204 L Sodium Potassium Chloride Carbon Dioxide BUN Creatinine Glucose POC Glucose Calcium Phosphorus Iron Total Creatine Kinase CK-MB (CK-2) Troponin T NT-Pro-B Natriuret Pep 73779 H Albumin Triglycerides HDL Cholesterol Urine WBC (Auto) Urine Creatinine Urine Total Protein Crossmatch See Detail 12/15/17 12/15/17 12/16/17 18:32 23:26 00:24 WBC RBC Hgb Hct MCV MCH MCHC RDW Plt Count Lymph % (Auto) [place] % (Auto) [place] # Seg Neutrophils % Seg Neuts % (Manual) Lymphocytes % (Manual) Monocytes % (Manual) Seg Neutrophils # Seg Neutrophils # Man Lymphocytes # (Manual) Monocytes # (Manual) D-Dimer Heparin Anti-Xa Level POC ABG pH 7.324 L 7.142 L POC ABG pCO2 33.6 L 50.4 H POC ABG pO2 110 H 107 H VBG pH Sodium Potassium Chloride Carbon Dioxide BUN Creatinine Glucose POC Glucose Calcium Phosphorus Iron 37 L Total Creatine Kinase CK-MB (CK-2) Troponin T NT-Pro-B Natriuret Pep Albumin Triglycerides HDL Cholesterol Urine WBC (Auto) Urine Creatinine Urine Total Protein Crossmatch 12/16/17 12/16/17 12/16/17 03:41 03:43 03:43 WBC 16.3 H RBC 3.01 L Hgb 7.5 L Hct 24.3 L D MCV 81 L MCH 25 L MCHC 31 L RDW 17.7 H Plt Count Lymph % (Auto) 7.9 L [place] % (Auto) 7.8 H [place] # 1.3 H Seg Neutrophils % 83.7 H Seg Neuts % (Manual) Lymphocytes % (Manual) Monocytes % (Manual) Seg Neutrophils # 13.7 H Seg Neutrophils # Man Lymphocytes # (Manual) Monocytes # (Manual) D-Dimer Heparin Anti-Xa Level POC ABG pH 7.211 L POC ABG pCO2 45.3 H POC ABG pO2 123 H VBG pH Sodium Potassium 5.3 H Chloride Carbon Dioxide 16 L BUN 76 H Creatinine 7.5 H Glucose 121 H POC Glucose Calcium 7.9 L Phosphorus Iron Total Creatine Kinase CK-MB (CK-2) Troponin T NT-Pro-B Natriuret Pep Albumin 3.6 L Triglycerides HDL Cholesterol Urine WBC (Auto) Urine Creatinine Urine Total Protein Crossmatch 12/16/17 12/16/17 12/16/17 10:11 11:10 11:41 WBC 17.6 H RBC 3.16 L Hgb 7.9 L Hct 24.5 L MCV 78 L MCH 25 L MCHC RDW 17.7 H Plt Count Lymph % (Auto) 8.6 L [place] % (Auto) [place] # 1.3 H Seg Neutrophils % 83.7 H Seg Neuts % (Manual) Lymphocytes % (Manual) Monocytes % (Manual) Seg Neutrophils # 14.7 H Seg Neutrophils # Man Lymphocytes # (Manual) Monocytes # (Manual) D-Dimer Heparin Anti-Xa Level POC ABG pH 7.491 H POC ABG pCO2 POC ABG pO2 56 L VBG pH Sodium Potassium Chloride Carbon Dioxide BUN Creatinine Glucose POC Glucose 127 H Calcium Phosphorus Iron Total Creatine Kinase CK-MB (CK-2) Troponin T NT-Pro-B Natriuret Pep Albumin Triglycerides HDL Cholesterol Urine WBC (Auto) Urine Creatinine Urine Total Protein Crossmatch 12/16/17 12/16/17 12/16/17 12:05 12:05 12:15 WBC RBC Hgb 7.4 L Hct 22.8 L MCV MCH MCHC RDW Plt Count Lymph % (Auto) [place] % (Auto) [place] # Seg Neutrophils % Seg Neuts % (Manual) Lymphocytes % (Manual) Monocytes % (Manual) Seg Neutrophils # Seg Neutrophils # Man Lymphocytes # (Manual) Monocytes # (Manual) D-Dimer Heparin Anti-Xa Level POC ABG pH POC ABG pCO2 POC ABG pO2 VBG pH Sodium Potassium Chloride Carbon Dioxide BUN Creatinine Glucose POC Glucose Calcium Phosphorus Iron Total Creatine Kinase CK-MB (CK-2) Troponin T NT-Pro-B Natriuret Pep Albumin Triglycerides HDL Cholesterol Urine WBC (Auto) > 182.0 H Urine Creatinine 81.7 H Urine Total Protein 493 H Crossmatch 12/16/17 12/16/17 12/17/17 17:52 18:08 00:11 WBC RBC Hgb 6.6 L 6.9 L Hct 20.6 L 20.8 L MCV MCH MCHC RDW Plt Count Lymph % (Auto) [place] % (Auto) [place] # Seg Neutrophils % Seg Neuts % (Manual) Lymphocytes % (Manual) Monocytes % (Manual) Seg Neutrophils # Seg Neutrophils # Man Lymphocytes # (Manual) Monocytes # (Manual) D-Dimer Heparin Anti-Xa Level POC ABG pH POC ABG pCO2 POC ABG pO2 VBG pH Sodium Potassium Chloride Carbon Dioxide BUN Creatinine Glucose POC Glucose 127 H Calcium Phosphorus Iron Total Creatine Kinase CK-MB (CK-2) Troponin T NT-Pro-B Natriuret Pep Albumin Triglycerides HDL Cholesterol Urine WBC (Auto) Urine Creatinine Urine Total Protein Crossmatch 12/17/17 12/17/17 12/17/17 00:24 04:03 07:54 WBC 13.1 H RBC 3.06 L Hgb 8.1 L Hct 24.3 L MCV 79 L MCH 26 L MCHC RDW 18.6 H Plt Count Lymph % (Auto) 11.9 L [place] % (Auto) 8.6 H [place] # 1.1 H Seg Neutrophils % 77.9 H Seg Neuts % (Manual) Lymphocytes % (Manual) Monocytes % (Manual) Seg Neutrophils # 10.2 H Seg Neutrophils # Man Lymphocytes # (Manual) Monocytes # (Manual) D-Dimer Heparin Anti-Xa Level POC ABG pH 7.453 H POC ABG pCO2 33.6 L POC ABG pO2 VBG pH Sodium Potassium Chloride Carbon Dioxide BUN Creatinine Glucose POC Glucose 126 H Calcium Phosphorus Iron Total Creatine Kinase CK-MB (CK-2) Troponin T NT-Pro-B Natriuret Pep Albumin Triglycerides HDL Cholesterol Urine WBC (Auto) Urine Creatinine Urine Total Protein Crossmatch 12/17/17 12/17/17 12/17/17 07:54 09:22 11:55 WBC RBC Hgb Hct MCV MCH MCHC RDW Plt Count Lymph % (Auto) [place] % (Auto) [place] # Seg Neutrophils % Seg Neuts % (Manual) Lymphocytes % (Manual) Monocytes % (Manual) Seg Neutrophils # Seg Neutrophils # Man Lymphocytes # (Manual) Monocytes # (Manual) D-Dimer Heparin Anti-Xa Level POC ABG pH POC ABG pCO2 POC ABG pO2 VBG pH Sodium Potassium 3.4 L D Chloride Carbon Dioxide 21 L BUN 65 H Creatinine 6.4 H Glucose 133 H POC Glucose 112 H 119 H Calcium Phosphorus Iron Total Creatine Kinase CK-MB (CK-2) Troponin T NT-Pro-B Natriuret Pep Albumin Triglycerides HDL Cholesterol Urine WBC (Auto) Urine Creatinine Urine Total Protein Crossmatch 12/17/17 12/17/17 12/17/17 13:07 17:15 17:29 WBC RBC Hgb 9.3 L 9.8 L Hct 27.9 L 29.8 L MCV MCH MCHC RDW Plt Count Lymph % (Auto) [place] % (Auto) [place] # Seg Neutrophils % Seg Neuts % (Manual) Lymphocytes % (Manual) Monocytes % (Manual) Seg Neutrophils # Seg Neutrophils # Man Lymphocytes # (Manual) Monocytes # (Manual) D-Dimer Heparin Anti-Xa Level POC ABG pH POC ABG pCO2 POC ABG pO2 VBG pH Sodium Potassium Chloride Carbon Dioxide BUN Creatinine Glucose POC Glucose 158 H Calcium Phosphorus Iron Total Creatine Kinase CK-MB (CK-2) Troponin T NT-Pro-B Natriuret Pep Albumin Triglycerides HDL Cholesterol Urine WBC (Auto) Urine Creatinine Urine Total Protein Crossmatch 12/18/17 12/18/17 12/18/17 00:03 00:28 04:44 WBC RBC Hgb 9.9 L Hct 29.9 L MCV MCH MCHC RDW Plt Count Lymph % (Auto) [place] % (Auto) [place] # Seg Neutrophils % Seg Neuts % (Manual) Lymphocytes % (Manual) Monocytes % (Manual) Seg Neutrophils # Seg Neutrophils # Man Lymphocytes # (Manual) Monocytes # (Manual) D-Dimer Heparin Anti-Xa Level POC ABG pH 7.497 H POC ABG pCO2 27.0 L POC ABG pO2 136 H VBG pH Sodium Potassium Chloride Carbon Dioxide BUN Creatinine Glucose POC Glucose 109 H Calcium Phosphorus Iron Total Creatine Kinase CK-MB (CK-2) Troponin T NT-Pro-B Natriuret Pep Albumin Triglycerides HDL Cholesterol Urine WBC (Auto) Urine Creatinine Urine Total Protein Crossmatch 12/18/17 12/18/17 12/18/17 05:12 05:12 11:55 WBC 14.2 H RBC Hgb 9.8 L Hct 29.7 L MCV 81 L MCH 27 L MCHC RDW 18.8 H Plt Count Lymph % (Auto) 12.3 L [place] % (Auto) 9.4 H [place] # 1.3 H Seg Neutrophils % 75.5 H Seg Neuts % (Manual) Lymphocytes % (Manual) Monocytes % (Manual) Seg Neutrophils # 10.7 H Seg Neutrophils # Man Lymphocytes # (Manual) Monocytes # (Manual) D-Dimer Heparin Anti-Xa Level POC ABG pH POC ABG pCO2 POC ABG pO2 VBG pH Sodium Potassium Chloride Carbon Dioxide 19 L BUN 55 H Creatinine 6.0 H Glucose 112 H POC Glucose 126 H Calcium Phosphorus Iron Total Creatine Kinase CK-MB (CK-2) Troponin T NT-Pro-B Natriuret Pep Albumin Triglycerides HDL Cholesterol Urine WBC (Auto) Urine Creatinine Urine Total Protein Crossmatch 12/18/17 12/19/17 12/19/17 21:34 05:01 05:10 WBC 11.9 H RBC Hgb 9.5 L Hct 30.1 L MCV 82 L MCH 26 L MCHC RDW 19.0 H Plt Count Lymph % (Auto) [place] % (Auto) [place] # Seg Neutrophils % Seg Neuts % (Manual) Lymphocytes % (Manual) Monocytes % (Manual) Seg Neutrophils # Seg Neutrophils # Man Lymphocytes # (Manual) Monocytes # (Manual) D-Dimer Heparin Anti-Xa Level POC ABG pH POC ABG pCO2 29.8 L POC ABG pO2 116 H VBG pH Sodium Potassium Chloride Carbon Dioxide BUN Creatinine Glucose POC Glucose 120 H Calcium Phosphorus Iron Total Creatine Kinase CK-MB (CK-2) Troponin T NT-Pro-B Natriuret Pep Albumin Triglycerides HDL Cholesterol Urine WBC (Auto) Urine Creatinine Urine Total Protein Crossmatch 12/19/17 12/19/17 12/19/17 05:10 05:10 07:15 WBC RBC Hgb Hct MCV MCH MCHC RDW Plt Count Lymph % (Auto) [place] % (Auto) [place] # Seg Neutrophils % Seg Neuts % (Manual) Lymphocytes % (Manual) Monocytes % (Manual) Seg Neutrophils # Seg Neutrophils # Man Lymphocytes # (Manual) Monocytes # (Manual) D-Dimer Heparin Anti-Xa Level POC ABG pH POC ABG pCO2 POC ABG pO2 VBG pH Sodium Potassium Chloride 95.9 L Carbon Dioxide 18 L BUN 90 H Creatinine 9.2 H D Glucose 140 H POC Glucose 130 H Calcium Phosphorus 11.90 H Iron Total Creatine Kinase CK-MB (CK-2) Troponin T NT-Pro-B Natriuret Pep Albumin Triglycerides 440 H HDL Cholesterol Urine WBC (Auto) Urine Creatinine Urine Total Protein Crossmatch 12/19/17 12/19/17 12/19/17 11:52 15:36 19:17 WBC RBC Hgb 10.3 L Hct 31.1 L MCV MCH MCHC RDW Plt Count Lymph % (Auto) [place] % (Auto) [place] # Seg Neutrophils % Seg Neuts % (Manual) Lymphocytes % (Manual) Monocytes % (Manual) Seg Neutrophils # Seg Neutrophils # Man Lymphocytes # (Manual) Monocytes # (Manual) D-Dimer Heparin Anti-Xa Level POC ABG pH POC ABG pCO2 POC ABG pO2 VBG pH Sodium Potassium Chloride Carbon Dioxide BUN Creatinine Glucose POC Glucose 148 H 127 H Calcium Phosphorus Iron Total Creatine Kinase CK-MB (CK-2) Troponin T NT-Pro-B Natriuret Pep Albumin Triglycerides HDL Cholesterol Urine WBC (Auto) Urine Creatinine Urine Total Protein Crossmatch 12/19/17 12/19/17 12/20/17 19:17 23:01 02:07 WBC RBC Hgb Hct MCV MCH MCHC RDW Plt Count Lymph % (Auto) [place] % (Auto) [place] # Seg Neutrophils % Seg Neuts % (Manual) Lymphocytes % (Manual) Monocytes % (Manual) Seg Neutrophils # Seg Neutrophils # Man Lymphocytes # (Manual) Monocytes # (Manual) D-Dimer Heparin Anti-Xa Level < 0.10 L 0.77 H POC ABG pH POC ABG pCO2 POC ABG pO2 VBG pH Sodium Potassium Chloride Carbon Dioxide BUN Creatinine Glucose POC Glucose 151 H Calcium Phosphorus Iron Total Creatine Kinase CK-MB (CK-2) Troponin T NT-Pro-B Natriuret Pep Albumin Triglycerides HDL Cholesterol Urine WBC (Auto) Urine Creatinine Urine Total Protein Crossmatch 12/20/17 12/20/17 12/20/17 02:09 04:03 07:52 WBC RBC Hgb Hct MCV MCH MCHC RDW Plt Count Lymph % (Auto) [place] % (Auto) [place] # Seg Neutrophils % Seg Neuts % (Manual) Lymphocytes % (Manual) Monocytes % (Manual) Seg Neutrophils # Seg Neutrophils # Man Lymphocytes # (Manual) Monocytes # (Manual) D-Dimer Heparin Anti-Xa Level POC ABG pH 7.308 L POC ABG pCO2 31.1 L POC ABG pO2 133 H VBG pH Sodium 147 H Potassium Chloride 96.9 L Carbon Dioxide 14 L BUN 116 H Creatinine 11.6 H Glucose 109 H POC Glucose 131 H Calcium Phosphorus Iron Total Creatine Kinase CK-MB (CK-2) Troponin T NT-Pro-B Natriuret Pep Albumin Triglycerides HDL Cholesterol Urine WBC (Auto) Urine Creatinine Urine Total Protein Crossmatch 12/20/17 12/20/17 12/20/17 11:11 11:43 16:08 WBC RBC Hgb Hct MCV MCH MCHC RDW Plt Count Lymph % (Auto) [place] % (Auto) [place] # Seg Neutrophils % Seg Neuts % (Manual) Lymphocytes % (Manual) Monocytes % (Manual) Seg Neutrophils # Seg Neutrophils # Man Lymphocytes # (Manual) Monocytes # (Manual) D-Dimer Heparin Anti-Xa Level POC ABG pH 7.266 L POC ABG pCO2 32.6 L POC ABG pO2 VBG pH Sodium Potassium Chloride Carbon Dioxide BUN Creatinine Glucose POC Glucose 143 H 159 H Calcium Phosphorus Iron Total Creatine Kinase CK-MB (CK-2) Troponin T NT-Pro-B Natriuret Pep Albumin Triglycerides HDL Cholesterol Urine WBC (Auto) Urine Creatinine Urine Total Protein Crossmatch 12/21/17 12/21/17 12/21/17 03:44 04:45 04:45 WBC 13.7 H RBC Hgb 10.8 L Hct 33.8 L MCV 81 L MCH 26 L MCHC RDW 19.4 H Plt Count Lymph % (Auto) [place] % (Auto) [place] # Seg Neutrophils % Seg Neuts % (Manual) 84.0 H Lymphocytes % (Manual) 6.0 L Monocytes % (Manual) 9.0 H Seg Neutrophils # Seg Neutrophils # Man 11.5 H Lymphocytes # (Manual) 0.8 L Monocytes # (Manual) 1.2 H D-Dimer Heparin Anti-Xa Level POC ABG pH POC ABG pCO2 27.6 L POC ABG pO2 VBG pH Sodium Potassium Chloride 93.9 L Carbon Dioxide 19 L BUN 82 H Creatinine 8.2 H Glucose 113 H POC Glucose Calcium Phosphorus Iron Total Creatine Kinase CK-MB (CK-2) Troponin T NT-Pro-B Natriuret Pep Albumin Triglycerides HDL Cholesterol Urine WBC (Auto) Urine Creatinine Urine Total Protein Crossmatch 12/21/17 12/21/17 12/21/17 08:08 09:35 12:11 WBC RBC Hgb Hct MCV MCH MCHC RDW Plt Count Lymph % (Auto) [place] % (Auto) [place] # Seg Neutrophils % Seg Neuts % (Manual) Lymphocytes % (Manual) Monocytes % (Manual) Seg Neutrophils # Seg Neutrophils # Man Lymphocytes # (Manual) Monocytes # (Manual) D-Dimer Heparin Anti-Xa Level 0.80 H POC ABG pH POC ABG pCO2 POC ABG pO2 VBG pH Sodium Potassium Chloride Carbon Dioxide BUN Creatinine Glucose POC Glucose 123 H 139 H Calcium Phosphorus Iron Total Creatine Kinase CK-MB (CK-2) Troponin T NT-Pro-B Natriuret Pep Albumin Triglycerides HDL Cholesterol Urine WBC (Auto) Urine Creatinine Urine Total Protein Crossmatch 12/21/17 12/21/17 12/21/17 15:51 17:12 23:18 WBC RBC Hgb Hct MCV MCH MCHC RDW Plt Count Lymph % (Auto) [place] % (Auto) [place] # Seg Neutrophils % Seg Neuts % (Manual) Lymphocytes % (Manual) Monocytes % (Manual) Seg Neutrophils # Seg Neutrophils # Man Lymphocytes # (Manual) Monocytes # (Manual) D-Dimer Heparin Anti-Xa Level 1.17 H POC ABG pH POC ABG pCO2 POC ABG pO2 VBG pH Sodium Potassium Chloride Carbon Dioxide BUN Creatinine Glucose POC Glucose 169 H 115 H Calcium Phosphorus Iron Total Creatine Kinase CK-MB (CK-2) Troponin T NT-Pro-B Natriuret Pep Albumin Triglycerides HDL Cholesterol Urine WBC (Auto) Urine Creatinine Urine Total Protein Crossmatch Chest x-ray: image reviewed (improvement in bilateral alveolar filling patterns from the weekend.)
[2017-12-22] MEDS: COREG PO SCH ×2 (11:32→22:25)
[2017-12-22] MEDS: PREVACID SOLUTAB FEEDTUBE SCH ×2 (11:32→22:25)
[2017-12-22] MEDS: SODIUM CHLORIDE FLUSH SYRINGE 10 ML IV SCH ×2 (11:33→22:25)
--- NOTE | 2017-12-22 13:03 | Progress Note ---
Assessment and Plan - Patient Problems (1) Acute renal failure (ARF) Current Visit: Yes Status: Acute Plan to address problem: Patient presumably has chronic kidney disease given the echogenic kidneys and nephrotic range proteinuria.Acute kidney injury probably acute tubular necrosis versus acute on chronic cardiorenal syndrome. HD led to improvement in volume status, cont HD on TTS schedule. Arrangements for outpatient dialysis ongoing. Awaiting vascular follow-up for permacath placement (2) Acute heart failure Current Visit: Yes Status: Acute Plan to address problem: Volume status improved with dialysis. Ejection fraction 40-45% on 2-D echo (3) Acidosis, metabolic Current Visit: Yes Status: Acute Plan to address problem: Improving with dialysis (4) Acute respiratory failure with hypoxia Current Visit: Yes Status: Acute Plan to address problem: Status post extubation. Continue monitoring by pulmonary (5) Anemia Current Visit: Yes Status: Acute Plan to address problem: Hemoglobin improved with packed Red blood cell transfusions. Follow-up hemoglobin Subjective Date of service: 12/22/17 Principal diagnosis: Anemia Interval history: Pt is extubated, in no acute resp distress. Awake, alert, in NAD Objective - Vital Signs Vital signs: Vital Signs - 12hr 12/22/17 12/22/17 12/22/17 01:01 02:00 03:01 Temperature Pulse Rate 94 H 86 88 Pulse Rate [ From Monitor] Respiratory 37 H 24 19 Rate Blood Pressure 125/80 134/77 122/77 O2 Sat by Pulse 100 98 97 Oximetry 12/22/17 12/22/17 12/22/17 04:00 05:00 06:00 Temperature 98.7 F Pulse Rate 89 88 92 H Pulse Rate [ 78 From Monitor] Respiratory 34 H 30 H 31 H Rate Blood Pressure 152/96 130/87 153/96 O2 Sat by Pulse 97 98 98 Oximetry 12/22/17 12/22/17 12/22/17 07:00 08:00 09:00 Temperature Pulse Rate 93 H 81 Pulse Rate [ From Monitor] Respiratory Rate Blood Pressure 147/94 155/86 138/93 O2 Sat by Pulse 99 100 Oximetry 12/22/17 11:32 Temperature Pulse Rate 96 H Pulse Rate [ From Monitor] Respiratory Rate Blood Pressure 145/90 O2 Sat by Pulse Oximetry - General Appearance General appearance: well-developed, well-nourished, appears stated age EENT: ATNC, PERRL, mucous membranes moist Neck: no JVD Respiratory: Present: Clear to Ascultation Cardiology: regular, S1S2 Gastrointestinal: normoactive bowel sounds Integumentary: no rash, other (no edema ) Neurologic: no focal deficit, alert and oriented x3, strength 5/5, CN 3-12 intact Psychiatric: mood/affect appropriate, cooperative - Lab 12/21/17 04:45 12/21/17 04:45 Most recent lab results Calcium 8.8 mg/dL (8.4-10.2) 12/21/17 04:45 Phosphorus 11.90 mg/dL (2.5-4.5) H 12/19/17 05:10 Urine Creatinine 81.7 mg/dL (0.1-20.0) H 12/16/17 12:05 Urine Sodium 62 mmol/L 12/16/17 12:05 Urine Total Protein 493 mg/dL (5-11.8) H 12/16/17 12:05
--- NOTE | 2017-12-22 13:08 | Progress Note ---
Assessment and Plan Acute respiratory failure extubated Acute on chronic renal failure s/p urgent dialysis Anemia s/p transfusion of PRBCs Acute right iliac DVT on IV heparin Acute systolic heart failure EF 40-45% by echo Systemic Hypertension Ileus Recommendations: Continue IV heparin while closely monitoring H/H No further cardiac work-up is planned Subjective Date of service: 12/22/17 Principal diagnosis: Anemia Interval history: Patient is extubated. No distress Objective Vital Signs Temp Pulse Pulse Pulse Resp Resp BP 12/22/17 11:32 96 H 145/90 12/22/17 09:00 138/93 12/22/17 08:00 81 155/86 12/22/17 07:00 93 H 147/94 12/22/17 06:00 92 H 31 H 153/96 12/22/17 05:00 88 30 H 130/87 12/22/17 04:00 98.7 F 89 78 34 H 152/96 12/22/17 03:01 88 19 122/77 12/22/17 02:00 86 24 134/77 12/22/17 01:01 94 H 37 H 125/80 12/22/17 00:07 97 H 35 H 138/86 12/22/17 00:00 98.7 F 96 H 78 45 H 138/86 12/21/17 23:00 93 H 30 H 124/91 12/21/17 22:16 87 18 12/21/17 22:06 91 H 18 12/21/17 22:00 93 H 39 H 143/89 12/21/17 21:00 93 H 14 158/86 12/21/17 20:00 98.9 F 91 H 78 13 155/95 12/21/17 19:00 95 H 14 144/93 12/21/17 18:16 98.1 F 97 H 15 117/93 12/21/17 18:00 103 H 13 121/87 12/21/17 17:45 103 H 132/88 12/21/17 17:30 102 H 133/88 12/21/17 17:15 98 H 131/79 12/21/17 17:00 97 H 13 128/77 12/21/17 16:45 94 H 125/89 12/21/17 16:30 93 H 108/72 12/21/17 16:15 94 H 122/82 12/21/17 16:09 96 H 12/21/17 16:00 98.1 F 96 H 11 L 123/74 12/21/17 15:45 88 115/83 12/21/17 15:30 91 H 106/80 12/21/17 15:15 94 H 99/61 12/21/17 15:01 91 H 14 102/69 12/21/17 15:00 91 H 102/69 12/21/17 14:45 82 120/70 12/21/17 14:30 79 111/81 12/21/17 14:25 98.2 F 79 15 116/76 12/21/17 14:00 77 11 L 116/74 12/21/17 13:46 78 12 12/21/17 13:29 76 12 Pulse Ox 12/22/17 11:32 12/22/17 09:00 100 12/22/17 08:00 99 12/22/17 07:00 12/22/17 06:00 98 12/22/17 05:00 98 12/22/17 04:00 97 12/22/17 03:01 97 12/22/17 02:00 98 12/22/17 01:01 100 12/22/17 00:07 98 12/22/17 00:00 99 12/21/17 23:00 99 12/21/17 22:16 12/21/17 22:06 12/21/17 22:00 99 12/21/17 21:00 100 12/21/17 20:00 98 12/21/17 19:00 99 12/21/17 18:16 12/21/17 18:00 99 12/21/17 17:45 12/21/17 17:30 12/21/17 17:15 12/21/17 17:00 98 12/21/17 16:45 12/21/17 16:30 12/21/17 16:15 12/21/17 16:09 12/21/17 16:00 98 12/21/17 15:45 12/21/17 15:30 12/21/17 15:15 12/21/17 15:01 96 12/21/17 15:00 12/21/17 14:45 12/21/17 14:30 12/21/17 14:25 12/21/17 14:00 98 12/21/17 13:46 12/21/17 13:29 - Physical Examination General: No Apparent Distress HEENT: Positive: PERRL Neck: Positive: trachea midline Cardiac: Positive: Reg Rate and Rhythm Lungs: Positive: Normal Exam Neuro: Positive: Grossly Intact Abdomen: Positive: Unremarkable, Active Bowel Sounds, Distended Extremities: Absent: edema - Imaging and Cardiology EKG: report reviewed (Sinus Tachycardia)
--- NOTE | 2017-12-22 13:55 | Gastroenterology Progress Note ---
Assessment and Plan 1.iron deficiency anemia -CT negative for intra-abdominal bleed -HGB 10.8-stable -continue to monitor H/H and transfuse as needed -currently on heparin drip for right LE DVT-no active signs of bleeding -etiology unclear -will get EGD/colonoscopy for further evaluation prior to discharge once medically stable and able to tolerate colon prep due to need for anticoagulation -continue PPI and supportive care 2.abdominal distention -KUB revealed ileus -clinically, patient's abd remains distended w/o BM or flatus overnight or this am. Denies pain or N/V. -Keep NPO -continue NG tube to LIS -encourage OOB -limit narcotics -repeat KUB in am -continue supportive care -will follow Subjective Date of service: 12/22/17 Principal diagnosis: Anemia Interval history: Patient resting in bed w/o acute distress. Now on venimask. No active signs of bleeding. Abdomen remains distended w/ no BM or flatus overnight. Objective - Constitutional Vitals: Temp Pulse Resp BP Pulse Ox 98.6 F 96 H 17 164/94 98 12/22/17 08:00 12/22/17 13:00 12/22/17 13:00 12/22/17 13:00 12/22/17 13:00 General appearance: no acute distress - Respiratory Respiratory: bilateral: diminished - Cardiovascular Rhythm: regular Heart Sounds: Present: S1 & S2 - Gastrointestinal General gastrointestinal: Present: soft, non-tender, distended, hypoactive bowel sounds - Labs CBC & Chem 7: 12/21/17 04:45 12/21/17 04:45 Labs: Laboratory Results - last 24 hr 12/21/17 12/21/17 12/21/17 15:51 17:12 23:18 Heparin Anti-Xa Level 1.17 H POC Glucose 169 H 115 H 12/22/17 04:52 Heparin Anti-Xa Level 0.56 POC Glucose
[2017-12-22] MEDS ORDERED: HEPARIN 10,000 UNITS/10 ML ONE (15:37)
[2017-12-22] MEDS ORDERED: XYLOCAINE 2% INFILTRATI ONE (15:37)
[2017-12-22] MEDS ORDERED: HEPARIN/NS 5000 UNIT/500ML(CATH LAB) 500 ML IR ONE (15:37)
[2017-12-22] MEDS ORDERED: NACL 0.9% 250ML 250 ML ONE (15:42)
[2017-12-22] MEDS ORDERED: SUBLIMAZE ONE (16:35)
[2017-12-22] MEDS ORDERED: VERSED ONE (16:35)
--- NOTE | 2017-12-22 17:16 | Operative Report ---
Operative Report Operative Report: Operative note: Date: 12/22/2017 Preoperative diagnosis: Renal failure Postoperative diagnosis: Same. Operation: Right internal jugular PermCath insertion Surgeon: Jessica Palomares. Asst.: None Anesthesia: Gen. EBL: Minimal Indications: Renal failure requiring dialysis. Patient was discussed risks and benefits of procedure and chose to proceed, signed informed consent. Operative details: Patient was brought to the operating room and placed in supine position. His right neck was prepped and draped in sterile fashion. Timeout was performed and all team members in agreement. Under ultrasound guidance right IJ was accessed with micropuncture needle, and exchanged to micropuncture catheter. J-wire was inserted under fluoroscopy guidance to SVC proximally. Small yusuf was created with 11 blade around the wire and at the intended exit site for the catheter after infiltrating with 2% lidocaine. Intended tunnel for the catheter was also infiltrated with lidocaine. A clamp was used to dilate tract at the incisions. 23 cm PermCath catheter was tunneled toward the access site positioning the cuff just inside the exit incision. We dilated the access IJ site with 8 Albanian and 12 Albanian dilators followed by the peel-away sheath. Wire and the introducer were removed and catheter was inserted in the peel-away sheath which was removed keeping the catheter in place. Fluoroscopy pictures showed good positioning with smooth turn over the catheter. Ports were flushed with heparinized saline and showed good flow followed by full strength heparin lock with 1.8 mL in each port. Patient tolerated procedure well. The was transferred to PACU in stable condition.
--- NOTE | 2017-12-22 18:26 | Progress Note ---
Assessment and Plan Right LE DVT -cont on heparin drip - monitor h and h Acute respiratory failure with hypoxia -likely due to pulmonary edema from renal failure - required intubation with MV - Off steroids - ABG improved - pulmonology following - s/p extubation 12/21/17 - cont nebs and supplemental O2 Sepsis likely from PNA -treated with IV abx, off abx today -blood cultures negative so far Bilateral pneumonia -treated with abx -blood and sputum culture neg BALDO 2/2 acute on chronic cardio renal syndrome, ischemic ATN in the setting of severe anemia and sepsis -H/O CKD suspected -on HD since admission -Neprology following - s/p perm cath placed today Paralytic ilius - seen on abdominal xry 12/21/17 - on NG suction, NPO - placed o D5NS @ 30ml/hr Hyperkalemia, now hypokalemia -will monitor level and replete as needed Elevated d-dimer -VQ scan pending Severe anemia, probably sec to CKD/ESRD -s/p blood transfusion with 4 units of PRBC -s/p CT abdomen and pelvis to assess for acute bleed, but no active source per GI -stable H&H post transfusion Acute exacerbation of CHF (congestive heart failure), suspected -2d ECHO report showed EF 40-45% -cont volume removal by increased Ultrafiltration Elevated troponin probably secondary to demand ischemia -Cardiology following HTN -Coreg and PRN hydralazine started -monitor and adjust med as needed DVT prophylaxis on Heparin and GI prophylaxis on Protonix Disposition: Patient remains in critical condition, continue current management Brief history: This is a 67 yo M with unknown past medical history, who was brought in to ER by EMS for progressive shortness of breath, associated with productive cough. As per EMS reports, Pt was placed on 100% nonrebreather and brought to the ER. CXR showed evidence of cardiomegaly and pulmonary edema, and since pt developed worsening respiratory failure with hypercapnia/hypoxia pt required intubation. Labs showed elevated WBC > 17, severe anemia with Hb as low as 4.9, elevated BUN/Cr at 76/7.1 mg/dl along with hyperkalemia and metabolic acidosis. He was transfused and vascath placed for HD per renal. Hospitalist Physical exam: GENERAL: elderly male lying on bed, alert awake HEENT: Normocephalic. Atraumatic. No conjunctival congestion or icterus. Patient has moist mucous membranes. NECK: Supple. Trachea midline. CHEST/LUNGS: Clear to auscultated bilaterally, HEART/CARDIOVASCULAR: Regular in rate and rhythm. S1 and S2 positive. ABDOMEN: Abdomen is distended, nontender. Patient has normal bowel sounds. SKIN: There is no rash. Warm and dry. NEURO: AAOx3, no focal deficit MUSCULOSKELETAL: No joint effusion or tenderness. EXTRIMITY: No edema, no cyanosis or clubbing. PSYCH: restraint Subjective Date of service: 12/22/17 Principal diagnosis: Anemia Interval history: Patient seen and examined. Medical records and medication list reviewed. No acute event overnight noted by the RN. on N/c with restraint Objective - Constitutional Vitals: Vital Signs - 12hr 12/22/17 12/22/17 12/22/17 07:00 08:00 09:00 Temperature 98.6 F Pulse Rate 93 H 81 Respiratory Rate Blood Pressure 147/94 155/86 138/93 O2 Sat by Pulse 99 97 Oximetry 12/22/17 12/22/17 12/22/17 10:00 11:00 11:32 Temperature Pulse Rate 96 H 92 H 96 H Respiratory 13 Rate Blood Pressure 151/92 151/85 145/90 O2 Sat by Pulse 94 98 Oximetry 12/22/17 12/22/17 12/22/17 12:00 13:00 14:25 Temperature Pulse Rate 95 H 96 H Respiratory 15 17 Rate Blood Pressure 140/89 164/94 O2 Sat by Pulse 96 98 95 Oximetry - Labs CBC & Chem 7: 12/23/17 04:35 12/23/17 04:35 Labs: Abnormal lab results 12/21/17 12/21/17 Range/Units 17:12 23:18 Heparin Anti-Xa Level 1.17 H (0.3-0.7) U.I./ml POC Glucose 115 H (70-105)
[2017-12-23] MEDS: D5NS 1,000 ML IV SCH ×2 (00:25→22:41)
[2017-12-23] MEDS: HEPARIN/ 0.45% NACL-25,000 UNIT/500 ML 25,000 UNIT/500 ML BAG IV SCH (04:39)
[2017-12-23 05:43] LABS: Basophils # (Auto) 0.1 K/mm3 (0.0-0.1); Basophils % (Auto) 0.6 % (0.0-1.8); Eosinophils # (Auto) 0.2 K/mm3 (0.0-0.4); Eosinophils % (Auto) 1.3 % (0.0-4.3); Hemoglobin 9.8 gm/dl (11.8-15.2); Lymphocytes # (Auto) 1.3 K/mm3 (1.2-5.4); Lymphocytes % (Auto) 10.3 % (13.4-35.0); Mean Corpuscular HGB Conc 33 % (32-34); Mean Corpuscular Hemoglobin 27 pg (28-32); Mean Corpuscular Volume 83 fl (84-94); Monocytes # (Auto) 1.3 K/mm3 (0.0-0.8); Monocytes % (Auto) 10.3 % (0.0-7.3); Platelet Count 418 K/mm3 (140-440); Red Blood Count 3.64 M/mm3 (3.65-5.03); Red Cell Distribution Width 18.9 % (13.2-15.2)
[2017-12-23 05:55] LABS: Calcium 8.9 mg/dL (8.4-10.2)
[2017-12-23] MEDS: HumaLOG SUB-Q SCH (06:31)
[2017-12-23] MEDS: NITRO-BID 2% TP SCH ×2 (06:32→14:26)
--- NOTE | 2017-12-23 09:17 | Progress Note ---
Assessment and Plan - Patient Problems (1) DVT (deep venous thrombosis) Current Visit: Yes Status: Acute (2) BALDO (acute kidney injury) Current Visit: Yes Status: Acute (3) Acidosis, metabolic Current Visit: Yes Status: Acute (4) Acute heart failure Current Visit: Yes Status: Acute (5) Acute pulmonary edema Current Visit: Yes Status: Acute (6) Bilateral pneumonia Current Visit: Yes Status: Acute Qualifiers: Lung location: lower lobe of lung Subjective Principal diagnosis: Anemia Interval history: on o2. Dobhoff noted sp vas cath placement Objective Vital Signs - 12hr 12/22/17 12/22/17 12/22/17 22:01 22:25 22:27 Temperature 97.6 F Pulse Rate 98 H 95 H Pulse Rate [ From Monitor] Respiratory 15 Rate Blood Pressure 140/90 146/92 O2 Sat by Pulse 93 Oximetry 12/22/17 12/23/17 12/23/17 23:00 00:00 00:23 Temperature 98.3 F Pulse Rate 97 H 97 H 95 H Pulse Rate [ From Monitor] Respiratory 14 21 Rate Blood Pressure 149/86 146/83 O2 Sat by Pulse 96 99 Oximetry 12/23/17 12/23/17 12/23/17 01:00 02:00 03:00 Temperature Pulse Rate 92 H 88 92 H Pulse Rate [ From Monitor] Respiratory 14 14 16 Rate Blood Pressure 124/78 127/80 127/76 O2 Sat by Pulse 97 98 97 Oximetry 12/23/17 12/23/17 12/23/17 04:00 05:00 06:00 Temperature 98.0 F Pulse Rate 87 86 86 Pulse Rate [ From Monitor] Respiratory 21 12 17 Rate Blood Pressure 119/87 131/70 130/77 O2 Sat by Pulse 99 97 96 Oximetry 12/23/17 12/23/17 12/23/17 06:32 07:00 08:00 Temperature 98.7 F Pulse Rate 89 89 86 Pulse Rate [ 86 From Monitor] Respiratory 13 14 Rate Blood Pressure 135/88 144/79 139/86 O2 Sat by Pulse 97 97 Oximetry 12/23/17 09:01 Temperature Pulse Rate 89 Pulse Rate [ From Monitor] Respiratory 14 Rate Blood Pressure 150/96 O2 Sat by Pulse 96 Oximetry Constitutional: no acute distress, alert ENT: other (dobhoff noted) Neck: supple Effort: normal Ascultation: Bilateral: diminished breath sounds, rales (right greater than left , mild) Percussion: Bilateral: not dull Cardiovascular: regular rate and rhythm Gastrointestinal: normoactive bowel sounds, soft, non-tender, other (no rebound tenderness, bowel sounds present,still looks somewhat distended) Integumentary: normal Extremities: no edema, pink and warm, pulses normal Neurologic: normal mental status, non-focal exam, pupils equal and round CBC and BMP: 12/23/17 04:35 12/23/17 04:35 ABG, PT/INR, D-dimer: ABG POC ABG pH 7.446 (7.35-7.45) 12/21/17 03:44 POC ABG pCO2 27.6 (35-45) L 12/21/17 03:44 POC ABG pO2 90 (80-105) 12/21/17 03:44 POC ABG HCO3 19.0 12/21/17 03:44 POC ABG Total CO2 20 12/21/17 03:44 POC ABG O2 Sat 97 12/21/17 03:44 PT/INR, D-dimer PT 14.3 Sec. (12.2-14.9) 12/19/17 19:17 INR 1.05 (0.87-1.13) 12/19/17 19:17 D-Dimer 1108.83 ng/mlDDU (0-234) H 12/15/17 17:16 Abnormal lab findings: Abnormal Labs 12/15/17 12/15/17 12/15/17 17:16 17:16 17:16 WBC 16.7 H RBC 2.12 L Hgb 4.9 L* Hct 16.0 L* MCV 76 L MCH 23 L MCHC 30 L RDW 17.3 H Plt Count 445 H Lymph % (Auto) 11.3 L [place] % (Auto) 7.4 H [place] # 1.2 H Seg Neutrophils % 80.2 H Seg Neuts % (Manual) Lymphocytes % (Manual) Monocytes % (Manual) Seg Neutrophils # 13.4 H Seg Neutrophils # Man Lymphocytes # (Manual) Monocytes # (Manual) D-Dimer 1108.83 H Heparin Anti-Xa Level POC ABG pH POC ABG pCO2 POC ABG pO2 VBG pH Sodium Potassium 5.1 H Chloride Carbon Dioxide 18 L BUN 76 H Creatinine 7.1 H Glucose 148 H POC Glucose Calcium 8.2 L Phosphorus Iron Total Creatine Kinase 736 H CK-MB (CK-2) 7.7 H Troponin T 0.067 H NT-Pro-B Natriuret Pep Albumin Triglycerides 206 H HDL Cholesterol 29 L Urine WBC (Auto) Urine Creatinine Urine Total Protein Crossmatch 12/15/17 12/15/17 12/15/17 17:16 17:45 18:01 WBC RBC Hgb Hct MCV MCH MCHC RDW Plt Count Lymph % (Auto) [place] % (Auto) [place] # Seg Neutrophils % Seg Neuts % (Manual) Lymphocytes % (Manual) Monocytes % (Manual) Seg Neutrophils # Seg Neutrophils # Man Lymphocytes # (Manual) Monocytes # (Manual) D-Dimer Heparin Anti-Xa Level POC ABG pH POC ABG pCO2 POC ABG pO2 VBG pH 7.204 L Sodium Potassium Chloride Carbon Dioxide BUN Creatinine Glucose POC Glucose Calcium Phosphorus Iron Total Creatine Kinase CK-MB (CK-2) Troponin T NT-Pro-B Natriuret Pep 21977 H Albumin Triglycerides HDL Cholesterol Urine WBC (Auto) Urine Creatinine Urine Total Protein Crossmatch See Detail 12/15/17 12/15/17 12/16/17 18:32 23:26 00:24 WBC RBC Hgb Hct MCV MCH MCHC RDW Plt Count Lymph % (Auto) [place] % (Auto) [place] # Seg Neutrophils % Seg Neuts % (Manual) Lymphocytes % (Manual) Monocytes % (Manual) Seg Neutrophils # Seg Neutrophils # Man Lymphocytes # (Manual) Monocytes # (Manual) D-Dimer Heparin Anti-Xa Level POC ABG pH 7.324 L 7.142 L POC ABG pCO2 33.6 L 50.4 H POC ABG pO2 110 H 107 H VBG pH Sodium Potassium Chloride Carbon Dioxide BUN Creatinine Glucose POC Glucose Calcium Phosphorus Iron 37 L Total Creatine Kinase CK-MB (CK-2) Troponin T NT-Pro-B Natriuret Pep Albumin Triglycerides HDL Cholesterol Urine WBC (Auto) Urine Creatinine Urine Total Protein Crossmatch 12/16/17 12/16/17 12/16/17 03:41 03:43 03:43 WBC 16.3 H RBC 3.01 L Hgb 7.5 L Hct 24.3 L D MCV 81 L MCH 25 L MCHC 31 L RDW 17.7 H Plt Count Lymph % (Auto) 7.9 L [place] % (Auto) 7.8 H [place] # 1.3 H Seg Neutrophils % 83.7 H Seg Neuts % (Manual) Lymphocytes % (Manual) Monocytes % (Manual) Seg Neutrophils # 13.7 H Seg Neutrophils # Man Lymphocytes # (Manual) Monocytes # (Manual) D-Dimer Heparin Anti-Xa Level POC ABG pH 7.211 L POC ABG pCO2 45.3 H POC ABG pO2 123 H VBG pH Sodium Potassium 5.3 H Chloride Carbon Dioxide 16 L BUN 76 H Creatinine 7.5 H Glucose 121 H POC Glucose Calcium 7.9 L Phosphorus Iron Total Creatine Kinase CK-MB (CK-2) Troponin T NT-Pro-B Natriuret Pep Albumin 3.6 L Triglycerides HDL Cholesterol Urine WBC (Auto) Urine Creatinine Urine Total Protein Crossmatch 12/16/17 12/16/17 12/16/17 10:11 11:10 11:41 WBC 17.6 H RBC 3.16 L Hgb 7.9 L Hct 24.5 L MCV 78 L MCH 25 L MCHC RDW 17.7 H Plt Count Lymph % (Auto) 8.6 L [place] % (Auto) [place] # 1.3 H Seg Neutrophils % 83.7 H Seg Neuts % (Manual) Lymphocytes % (Manual) Monocytes % (Manual) Seg Neutrophils # 14.7 H Seg Neutrophils # Man Lymphocytes # (Manual) Monocytes # (Manual) D-Dimer Heparin Anti-Xa Level POC ABG pH 7.491 H POC ABG pCO2 POC ABG pO2 56 L VBG pH Sodium Potassium Chloride Carbon Dioxide BUN Creatinine Glucose POC Glucose 127 H Calcium Phosphorus Iron Total Creatine Kinase CK-MB (CK-2) Troponin T NT-Pro-B Natriuret Pep Albumin Triglycerides HDL Cholesterol Urine WBC (Auto) Urine Creatinine Urine Total Protein Crossmatch 12/16/17 12/16/17 12/16/17 12:05 12:05 12:15 WBC RBC Hgb 7.4 L Hct 22.8 L MCV MCH MCHC RDW Plt Count Lymph % (Auto) [place] % (Auto) [place] # Seg Neutrophils % Seg Neuts % (Manual) Lymphocytes % (Manual) Monocytes % (Manual) Seg Neutrophils # Seg Neutrophils # Man Lymphocytes # (Manual) Monocytes # (Manual) D-Dimer Heparin Anti-Xa Level POC ABG pH POC ABG pCO2 POC ABG pO2 VBG pH Sodium Potassium Chloride Carbon Dioxide BUN Creatinine Glucose POC Glucose Calcium Phosphorus Iron Total Creatine Kinase CK-MB (CK-2) Troponin T NT-Pro-B Natriuret Pep Albumin Triglycerides HDL Cholesterol Urine WBC (Auto) > 182.0 H Urine Creatinine 81.7 H Urine Total Protein 493 H Crossmatch 12/16/17 12/16/17 12/17/17 17:52 18:08 00:11 WBC RBC Hgb 6.6 L 6.9 L Hct 20.6 L 20.8 L MCV MCH MCHC RDW Plt Count Lymph % (Auto) [place] % (Auto) [place] # Seg Neutrophils % Seg Neuts % (Manual) Lymphocytes % (Manual) Monocytes % (Manual) Seg Neutrophils # Seg Neutrophils # Man Lymphocytes # (Manual) Monocytes # (Manual) D-Dimer Heparin Anti-Xa Level POC ABG pH POC ABG pCO2 POC ABG pO2 VBG pH Sodium Potassium Chloride Carbon Dioxide BUN Creatinine Glucose POC Glucose 127 H Calcium Phosphorus Iron Total Creatine Kinase CK-MB (CK-2) Troponin T NT-Pro-B Natriuret Pep Albumin Triglycerides HDL Cholesterol Urine WBC (Auto) Urine Creatinine Urine Total Protein Crossmatch 12/17/17 12/17/17 12/17/17 00:24 04:03 07:54 WBC 13.1 H RBC 3.06 L Hgb 8.1 L Hct 24.3 L MCV 79 L MCH 26 L MCHC RDW 18.6 H Plt Count Lymph % (Auto) 11.9 L [place] % (Auto) 8.6 H [place] # 1.1 H Seg Neutrophils % 77.9 H Seg Neuts % (Manual) Lymphocytes % (Manual) Monocytes % (Manual) Seg Neutrophils # 10.2 H Seg Neutrophils # Man Lymphocytes # (Manual) Monocytes # (Manual) D-Dimer Heparin Anti-Xa Level POC ABG pH 7.453 H POC ABG pCO2 33.6 L POC ABG pO2 VBG pH Sodium Potassium Chloride Carbon Dioxide BUN Creatinine Glucose POC Glucose 126 H Calcium Phosphorus Iron Total Creatine Kinase CK-MB (CK-2) Troponin T NT-Pro-B Natriuret Pep Albumin Triglycerides HDL Cholesterol Urine WBC (Auto) Urine Creatinine Urine Total Protein Crossmatch 12/17/17 12/17/17 12/17/17 07:54 09:22 11:55 WBC RBC Hgb Hct MCV MCH MCHC RDW Plt Count Lymph % (Auto) [place] % (Auto) [place] # Seg Neutrophils % Seg Neuts % (Manual) Lymphocytes % (Manual) Monocytes % (Manual) Seg Neutrophils # Seg Neutrophils # Man Lymphocytes # (Manual) Monocytes # (Manual) D-Dimer Heparin Anti-Xa Level POC ABG pH POC ABG pCO2 POC ABG pO2 VBG pH Sodium Potassium 3.4 L D Chloride Carbon Dioxide 21 L BUN 65 H Creatinine 6.4 H Glucose 133 H POC Glucose 112 H 119 H Calcium Phosphorus Iron Total Creatine Kinase CK-MB (CK-2) Troponin T NT-Pro-B Natriuret Pep Albumin Triglycerides HDL Cholesterol Urine WBC (Auto) Urine Creatinine Urine Total Protein Crossmatch 12/17/17 12/17/17 12/17/17 13:07 17:15 17:29 WBC RBC Hgb 9.3 L 9.8 L Hct 27.9 L 29.8 L MCV MCH MCHC RDW Plt Count Lymph % (Auto) [place] % (Auto) [place] # Seg Neutrophils % Seg Neuts % (Manual) Lymphocytes % (Manual) Monocytes % (Manual) Seg Neutrophils # Seg Neutrophils # Man Lymphocytes # (Manual) Monocytes # (Manual) D-Dimer Heparin Anti-Xa Level POC ABG pH POC ABG pCO2 POC ABG pO2 VBG pH Sodium Potassium Chloride Carbon Dioxide BUN Creatinine Glucose POC Glucose 158 H Calcium Phosphorus Iron Total Creatine Kinase CK-MB (CK-2) Troponin T NT-Pro-B Natriuret Pep Albumin Triglycerides HDL Cholesterol Urine WBC (Auto) Urine Creatinine Urine Total Protein Crossmatch 12/18/17 12/18/17 12/18/17 00:03 00:28 04:44 WBC RBC Hgb 9.9 L Hct 29.9 L MCV MCH MCHC RDW Plt Count Lymph % (Auto) [place] % (Auto) [place] # Seg Neutrophils % Seg Neuts % (Manual) Lymphocytes % (Manual) Monocytes % (Manual) Seg Neutrophils # Seg Neutrophils # Man Lymphocytes # (Manual) Monocytes # (Manual) D-Dimer Heparin Anti-Xa Level POC ABG pH 7.497 H POC ABG pCO2 27.0 L POC ABG pO2 136 H VBG pH Sodium Potassium Chloride Carbon Dioxide BUN Creatinine Glucose POC Glucose 109 H Calcium Phosphorus Iron Total Creatine Kinase CK-MB (CK-2) Troponin T NT-Pro-B Natriuret Pep Albumin Triglycerides HDL Cholesterol Urine WBC (Auto) Urine Creatinine Urine Total Protein Crossmatch 12/18/17 12/18/17 12/18/17 05:12 05:12 11:55 WBC 14.2 H RBC Hgb 9.8 L Hct 29.7 L MCV 81 L MCH 27 L MCHC RDW 18.8 H Plt Count Lymph % (Auto) 12.3 L [place] % (Auto) 9.4 H [place] # 1.3 H Seg Neutrophils % 75.5 H Seg Neuts % (Manual) Lymphocytes % (Manual) Monocytes % (Manual) Seg Neutrophils # 10.7 H Seg Neutrophils # Man Lymphocytes # (Manual) Monocytes # (Manual) D-Dimer Heparin Anti-Xa Level POC ABG pH POC ABG pCO2 POC ABG pO2 VBG pH Sodium Potassium Chloride Carbon Dioxide 19 L BUN 55 H Creatinine 6.0 H Glucose 112 H POC Glucose 126 H Calcium Phosphorus Iron Total Creatine Kinase CK-MB (CK-2) Troponin T NT-Pro-B Natriuret Pep Albumin Triglycerides HDL Cholesterol Urine WBC (Auto) Urine Creatinine Urine Total Protein Crossmatch 12/18/17 12/19/17 12/19/17 21:34 05:01 05:10 WBC 11.9 H RBC Hgb 9.5 L Hct 30.1 L MCV 82 L MCH 26 L MCHC RDW 19.0 H Plt Count Lymph % (Auto) [place] % (Auto) [place] # Seg Neutrophils % Seg Neuts % (Manual) Lymphocytes % (Manual) Monocytes % (Manual) Seg Neutrophils # Seg Neutrophils # Man Lymphocytes # (Manual) Monocytes # (Manual) D-Dimer Heparin Anti-Xa Level POC ABG pH POC ABG pCO2 29.8 L POC ABG pO2 116 H VBG pH Sodium Potassium Chloride Carbon Dioxide BUN Creatinine Glucose POC Glucose 120 H Calcium Phosphorus Iron Total Creatine Kinase CK-MB (CK-2) Troponin T NT-Pro-B Natriuret Pep Albumin Triglycerides HDL Cholesterol Urine WBC (Auto) Urine Creatinine Urine Total Protein Crossmatch 12/19/17 12/19/17 12/19/17 05:10 05:10 07:15 WBC RBC Hgb Hct MCV MCH MCHC RDW Plt Count Lymph % (Auto) [place] % (Auto) [place] # Seg Neutrophils % Seg Neuts % (Manual) Lymphocytes % (Manual) Monocytes % (Manual) Seg Neutrophils # Seg Neutrophils # Man Lymphocytes # (Manual) Monocytes # (Manual) D-Dimer Heparin Anti-Xa Level POC ABG pH POC ABG pCO2 POC ABG pO2 VBG pH Sodium Potassium Chloride 95.9 L Carbon Dioxide 18 L BUN 90 H Creatinine 9.2 H D Glucose 140 H POC Glucose 130 H Calcium Phosphorus 11.90 H Iron Total Creatine Kinase CK-MB (CK-2) Troponin T NT-Pro-B Natriuret Pep Albumin Triglycerides 440 H HDL Cholesterol Urine WBC (Auto) Urine Creatinine Urine Total Protein Crossmatch 12/19/17 12/19/17 12/19/17 11:52 15:36 19:17 WBC RBC Hgb 10.3 L Hct 31.1 L MCV MCH MCHC RDW Plt Count Lymph % (Auto) [place] % (Auto) [place] # Seg Neutrophils % Seg Neuts % (Manual) Lymphocytes % (Manual) Monocytes % (Manual) Seg Neutrophils # Seg Neutrophils # Man Lymphocytes # (Manual) Monocytes # (Manual) D-Dimer Heparin Anti-Xa Level POC ABG pH POC ABG pCO2 POC ABG pO2 VBG pH Sodium Potassium Chloride Carbon Dioxide BUN Creatinine Glucose POC Glucose 148 H 127 H Calcium Phosphorus Iron Total Creatine Kinase CK-MB (CK-2) Troponin T NT-Pro-B Natriuret Pep Albumin Triglycerides HDL Cholesterol Urine WBC (Auto) Urine Creatinine Urine Total Protein Crossmatch 12/19/17 12/19/17 12/20/17 19:17 23:01 02:07 WBC RBC Hgb Hct MCV MCH MCHC RDW Plt Count Lymph % (Auto) [place] % (Auto) [place] # Seg Neutrophils % Seg Neuts % (Manual) Lymphocytes % (Manual) Monocytes % (Manual) Seg Neutrophils # Seg Neutrophils # Man Lymphocytes # (Manual) Monocytes # (Manual) D-Dimer Heparin Anti-Xa Level < 0.10 L 0.77 H POC ABG pH POC ABG pCO2 POC ABG pO2 VBG pH Sodium Potassium Chloride Carbon Dioxide BUN Creatinine Glucose POC Glucose 151 H Calcium Phosphorus Iron Total Creatine Kinase CK-MB (CK-2) Troponin T NT-Pro-B Natriuret Pep Albumin Triglycerides HDL Cholesterol Urine WBC (Auto) Urine Creatinine Urine Total Protein Crossmatch 12/20/17 12/20/17 12/20/17 02:09 04:03 07:52 WBC RBC Hgb Hct MCV MCH MCHC RDW Plt Count Lymph % (Auto) [place] % (Auto) [place] # Seg Neutrophils % Seg Neuts % (Manual) Lymphocytes % (Manual) Monocytes % (Manual) Seg Neutrophils # Seg Neutrophils # Man Lymphocytes # (Manual) Monocytes # (Manual) D-Dimer Heparin Anti-Xa Level POC ABG pH 7.308 L POC ABG pCO2 31.1 L POC ABG pO2 133 H VBG pH Sodium 147 H Potassium Chloride 96.9 L Carbon Dioxide 14 L BUN 116 H Creatinine 11.6 H Glucose 109 H POC Glucose 131 H Calcium Phosphorus Iron Total Creatine Kinase CK-MB (CK-2) Troponin T NT-Pro-B Natriuret Pep Albumin Triglycerides HDL Cholesterol Urine WBC (Auto) Urine Creatinine Urine Total Protein Crossmatch 12/20/17 12/20/17 12/20/17 11:11 11:43 16:08 WBC RBC Hgb Hct MCV MCH MCHC RDW Plt Count Lymph % (Auto) [place] % (Auto) [place] # Seg Neutrophils % Seg Neuts % (Manual) Lymphocytes % (Manual) Monocytes % (Manual) Seg Neutrophils # Seg Neutrophils # Man Lymphocytes # (Manual) Monocytes # (Manual) D-Dimer Heparin Anti-Xa Level POC ABG pH 7.266 L POC ABG pCO2 32.6 L POC ABG pO2 VBG pH Sodium Potassium Chloride Carbon Dioxide BUN Creatinine Glucose POC Glucose 143 H 159 H Calcium Phosphorus Iron Total Creatine Kinase CK-MB (CK-2) Troponin T NT-Pro-B Natriuret Pep Albumin Triglycerides HDL Cholesterol Urine WBC (Auto) Urine Creatinine Urine Total Protein Crossmatch 12/21/17 12/21/17 12/21/17 03:44 04:45 04:45 WBC 13.7 H RBC Hgb 10.8 L Hct 33.8 L MCV 81 L MCH 26 L MCHC RDW 19.4 H Plt Count Lymph % (Auto) [place] % (Auto) [place] # Seg Neutrophils % Seg Neuts % (Manual) 84.0 H Lymphocytes % (Manual) 6.0 L Monocytes % (Manual) 9.0 H Seg Neutrophils # Seg Neutrophils # Man 11.5 H Lymphocytes # (Manual) 0.8 L Monocytes # (Manual) 1.2 H D-Dimer Heparin Anti-Xa Level POC ABG pH POC ABG pCO2 27.6 L POC ABG pO2 VBG pH Sodium Potassium Chloride 93.9 L Carbon Dioxide 19 L BUN 82 H Creatinine 8.2 H Glucose 113 H POC Glucose Calcium Phosphorus Iron Total Creatine Kinase CK-MB (CK-2) Troponin T NT-Pro-B Natriuret Pep Albumin Triglycerides HDL Cholesterol Urine WBC (Auto) Urine Creatinine Urine Total Protein Crossmatch 12/21/17 12/21/1712/21/18 08:08 09:35 12:11 WBC RBC Hgb Hct MCV MCH MCHC RDW Plt Count Lymph % (Auto) [place] % (Auto) [place] # Seg Neutrophils % Seg Neuts % (Manual) Lymphocytes % (Manual) Monocytes % (Manual) Seg Neutrophils # Seg Neutrophils # Man Lymphocytes # (Manual) Monocytes # (Manual) D-Dimer Heparin Anti-Xa Level 0.80 H POC ABG pH POC ABG pCO2 POC ABG pO2 VBG pH Sodium Potassium Chloride Carbon Dioxide BUN Creatinine Glucose POC Glucose 123 H 139 H Calcium Phosphorus Iron Total Creatine Kinase CK-MB (CK-2) Troponin T NT-Pro-B Natriuret Pep Albumin Triglycerides HDL Cholesterol Urine WBC (Auto) Urine Creatinine Urine Total Protein Crossmatch 12/21/17 12/21/17 12/21/17 15:51 17:12 23:18 WBC RBC Hgb Hct MCV MCH MCHC RDW Plt Count Lymph % (Auto) [place] % (Auto) [place] # Seg Neutrophils % Seg Neuts % (Manual) Lymphocytes % (Manual) Monocytes % (Manual) Seg Neutrophils # Seg Neutrophils # Man Lymphocytes # (Manual) Monocytes # (Manual) D-Dimer Heparin Anti-Xa Level 1.17 H POC ABG pH POC ABG pCO2 POC ABG pO2 VBG pH Sodium Potassium Chloride Carbon Dioxide BUN Creatinine Glucose POC Glucose 169 H 115 H Calcium Phosphorus Iron Total Creatine Kinase CK-MB (CK-2) Troponin T NT-Pro-B Natriuret Pep Albumin Triglycerides HDL Cholesterol Urine WBC (Auto) Urine Creatinine Urine Total Protein Crossmatch 12/22/17 12/23/17 12/23/17 18:55 00:05 04:35 WBC 12.7 H RBC 3.64 L Hgb 9.8 L Hct 30.0 L MCV 83 L MCH 27 L MCHC RDW 18.9 H Plt Count Lymph % (Auto) 10.3 L [place] % (Auto) 10.3 H [place] # 1.3 H Seg Neutrophils % 77.5 H Seg Neuts % (Manual) Lymphocytes % (Manual) Monocytes % (Manual) Seg Neutrophils # 9.9 H Seg Neutrophils # Man Lymphocytes # (Manual) Monocytes # (Manual) D-Dimer Heparin Anti-Xa Level POC ABG pH POC ABG pCO2 POC ABG pO2 VBG pH Sodium Potassium Chloride Carbon Dioxide BUN Creatinine Glucose POC Glucose 120 H 108 H Calcium Phosphorus Iron Total Creatine Kinase CK-MB (CK-2) Troponin T NT-Pro-B Natriuret Pep Albumin Triglycerides HDL Cholesterol Urine WBC (Auto) Urine Creatinine Urine Total Protein Crossmatch 12/23/17 12/23/17 12/23/17 04:35 04:35 06:27 WBC RBC Hgb Hct MCV MCH MCHC RDW Plt Count Lymph % (Auto) [place] % (Auto) [place] # Seg Neutrophils % Seg Neuts % (Manual) Lymphocytes % (Manual) Monocytes % (Manual) Seg Neutrophils # Seg Neutrophils # Man Lymphocytes # (Manual) Monocytes # (Manual) D-Dimer Heparin Anti-Xa Level 0.24 L POC ABG pH POC ABG pCO2 POC ABG pO2 VBG pH Sodium Potassium Chloride 88.9 L Carbon Dioxide 16 L BUN 107 H Creatinine 9.8 H Glucose 140 H POC Glucose 143 H Calcium Phosphorus Iron Total Creatine Kinase CK-MB (CK-2) Troponin T NT-Pro-B Natriuret Pep Albumin Triglycerides HDL Cholesterol Urine WBC (Auto) Urine Creatinine Urine Total Protein Crossmatch
--- NOTE | 2017-12-23 09:42 | Progress Note ---
Assessment and Plan Acute respiratory failure extubated Acute on chronic renal failure s/p urgent dialysis Anemia s/p transfusion of PRBCs Acute right iliac DVT on IV heparin Acute systolic heart failure EF 40-45% by echo Systemic Hypertension Ileus GI planning EGD and colonoscopy once medically stable Recommendations: Continue IV heparin while closely monitoring H/H No further cardiac work-up is planned Subjective Date of service: 12/23/17 Principal diagnosis: Anemia Interval history: Patient lying in bed, lethargic SR on tele Objective Vital Signs Temp Pulse Pulse Pulse Resp Resp BP 12/23/17 09:01 89 14 150/96 12/23/17 08:00 98.7 F 86 86 14 139/86 12/23/17 07:00 89 13 144/79 12/23/17 06:32 89 135/88 12/23/17 06:00 86 17 130/77 12/23/17 05:00 86 12 131/70 12/23/17 04:00 98.0 F 87 21 119/87 12/23/17 03:00 92 H 16 127/76 12/23/17 02:00 88 14 127/80 12/23/17 01:00 92 H 14 124/78 12/23/17 00:23 95 H 12/23/17 00:00 98.3 F 97 H 21 146/83 12/22/17 23:00 97 H 14 149/86 12/22/17 22:27 97.6 F 12/22/17 22:25 95 H 146/92 12/22/17 22:01 98 H 15 140/90 12/22/17 21:00 95 H 16 159/94 12/22/17 20:00 90 14 137/89 12/22/17 19:13 89 14 153/87 12/22/17 19:00 91 H 13 153/87 12/22/17 18:57 92 H 144/86 12/22/17 18:00 89 15 161/89 12/22/17 17:23 89 13 141/82 12/22/17 16:00 99.0 F 87 86 17 141/88 12/22/17 15:25 94 H 20 12/22/17 15:05 98 H 18 12/22/17 15:00 97 H 16 148/88 12/22/17 14:25 12/22/17 14:01 106 H 22 148/89 12/22/17 13:00 96 H 17 164/94 12/22/17 12:00 98.8 F 95 H 88 22 140/89 12/22/17 11:32 96 H 145/90 12/22/17 11:00 92 H 13 151/85 12/22/17 10:00 96 H 151/92 Pulse Ox 12/23/17 09:01 96 12/23/17 08:00 97 12/23/17 07:00 97 12/23/17 06:32 12/23/17 06:00 96 12/23/17 05:00 97 12/23/17 04:00 99 12/23/17 03:00 97 12/23/17 02:00 98 12/23/17 01:00 97 12/23/17 00:23 12/23/17 00:00 99 12/22/17 23:00 96 12/22/17 22:27 12/22/17 22:25 12/22/17 22:01 93 12/22/17 21:00 96 12/22/17 20:00 97 12/22/17 19:13 98 12/22/17 19:00 96 12/22/17 18:57 12/22/17 18:00 97 12/22/17 17:23 96 12/22/17 16:00 95 12/22/17 15:25 12/22/17 15:05 12/22/17 15:00 97 12/22/17 14:25 95 12/22/17 14:01 93 12/22/17 13:00 98 12/22/17 12:00 99 12/22/17 11:32 12/22/17 11:00 98 12/22/17 10:00 94 - Physical Examination General: No Apparent Distress HEENT: Positive: PERRL Neck: Positive: trachea midline Cardiac: Positive: Reg Rate and Rhythm Lungs: Positive: Normal Exam Neuro: Positive: Grossly Intact Abdomen: Positive: Unremarkable, Active Bowel Sounds, Distended Extremities: Absent: edema - Labs and Meds CBC 12/23/17 Range/Units 04:35 WBC 12.7 H (4.5-11.0) K/mm3 RBC 3.64 L (3.65-5.03) M/mm3 Hgb 9.8 L (11.8-15.2) gm/dl Hct 30.0 L (35.5-45.6) % Plt Count 418 (140-440) K/mm3 Lymph # 1.3 (1.2-5.4) K/mm3 [place] # 1.3 H (0.0-0.8) K/mm3 Eos # 0.2 (0.0-0.4) K/mm3 Baso # 0.1 (0.0-0.1) K/mm3 Comprehensive Metabolic Panel 12/23/17 Range/Units 04:35 Sodium 137 (137-145) mmol/L Potassium 4.4 (3.6-5.0) mmol/L Chloride 88.9 L (98-107) mmol/L Carbon Dioxide 16 L (22-30) mmol/L BUN 107 H (9-20) mg/dL Creatinine 9.8 H (0.8-1.5) mg/dL Glucose 140 H (75-100) mg/dL Calcium 8.9 (8.4-10.2) mg/dL - Imaging and Cardiology EKG: report reviewed (Sinus Tachycardia)
--- NOTE | 2017-12-23 10:33 | Progress Note ---
Assessment and Plan - Patient Problems (1) BALDO (acute kidney injury) Current Visit: Yes Status: Acute Plan to address problem: Likely in the setting of acure cardiorenal syndrome. No signs of renal recovery at this time and patient remains on dialysis, on TTS schedule He has had permcath placed and awaiting outpatient dialysis to be set up. Dialysis today, orders written. (2) Acute exacerbation of CHF (congestive heart failure) Current Visit: Yes Status: Acute Qualifiers: Heart failure type: combined systolic and diastolic Qualified Code(s): I50.43 - Acute on chronic combined systolic (congestive) and diastolic ( congestive) heart failure Plan to address problem: Volume status improved with dialysis. (3) Acidosis, metabolic Current Visit: Yes Status: Acute Plan to address problem: Improved with dialysis. Will continue to monitor. (4) Hyperkalemia Current Visit: Yes Status: Acute Plan to address problem: Improved with clearance provided with dialysis. He is NPO at present. He should be on a low K renal diet when not NPO. Will continue to monitor. (5) Respiratory failure Current Visit: Yes Status: Acute Qualifiers: Chronicity: acute Respiratory failure complication: hypoxia Qualified Code(s): J96.01 - Acute respiratory failure with hypoxia Plan to address problem: Tolerating well with adequate O2 sats on O2 via NC. (6) Severe anemia Current Visit: Yes Status: Chronic Plan to address problem: improved with transfusions. Will closely monitor. Per primary notes, possible plan for EGD/colonoscopy when stable. Will follow up. Subjective Date of service: 12/23/17 Principal diagnosis: Anemia Interval history: Had permcath placed. Plan for HD today per his TTS schedule. Will need his femoral shiley removed. Objective - Vital Signs Vital signs: Vital Signs - 12hr 12/22/17 12/23/17 12/23/17 23:00 00:00 00:23 Temperature 98.3 F Pulse Rate 97 H 97 H 95 H Pulse Rate [ From Monitor] Respiratory 14 21 Rate Blood Pressure 149/86 146/83 O2 Sat by Pulse 96 99 Oximetry 12/23/17 12/23/17 12/23/17 01:00 02:00 03:00 Temperature Pulse Rate 92 H 88 92 H Pulse Rate [ From Monitor] Respiratory 14 14 16 Rate Blood Pressure 124/78 127/80 127/76 O2 Sat by Pulse 97 98 97 Oximetry 12/23/17 12/23/17 12/23/17 04:00 05:00 06:00 Temperature 98.0 F Pulse Rate 87 86 86 Pulse Rate [ From Monitor] Respiratory 21 12 17 Rate Blood Pressure 119/87 131/70 130/77 O2 Sat by Pulse 99 97 96 Oximetry 12/23/17 12/23/17 12/23/17 06:32 07:00 08:00 Temperature 98.1 F Pulse Rate 89 89 86 Pulse Rate [ 86 From Monitor] Respiratory 13 14 Rate Blood Pressure 135/88 144/79 139/86 O2 Sat by Pulse 97 97 Oximetry 12/23/17 09:01 Temperature Pulse Rate 89 Pulse Rate [ From Monitor] Respiratory 14 Rate Blood Pressure 150/96 O2 Sat by Pulse 96 Oximetry - General Appearance General appearance: well-nourished, appears stated age EENT: ATNC Neck: no JVD, supple Respiratory: Present: Clear to Ascultation Cardiology: regular, S1S2 Gastrointestinal: normal, normoactive bowel sounds Integumentary: no rash, warm and dry Neurologic: no focal deficit Musculoskeletal: other (-edema) Psychiatric: cooperative - Lab 12/23/17 04:35 12/23/17 04:35 Most recent lab results Calcium 8.9 mg/dL (8.4-10.2) 12/23/17 04:35 Phosphorus 11.90 mg/dL (2.5-4.5) H 12/19/17 05:10 Urine Creatinine 81.7 mg/dL (0.1-20.0) H 12/16/17 12:05 Urine Sodium 62 mmol/L 12/16/17 12:05 Urine Total Protein 493 mg/dL (5-11.8) H 12/16/17 12:05 - Imaging Other: pending - Allied health notes Allied health notes reviewed: nursing
[2017-12-23] MEDS: DUONEB *Not for PRN Use IH SCH ×4 (10:51→20:06)
[2017-12-23] MEDS: PREVACID SOLUTAB FEEDTUBE SCH (11:08)
[2017-12-23] MEDS: COREG PO SCH ×2 (11:08→22:16)
[2017-12-23] MEDS: SODIUM CHLORIDE FLUSH SYRINGE 10 ML IV SCH (11:09)
--- NOTE | 2017-12-23 15:10 | Progress Note ---
Assessment and Plan Right LE DVT -cont on heparin drip - monitor h and h Acute respiratory failure with hypoxia -likely due to pulmonary edema from renal failure - required intubation with MV - Off steroids - ABG improved - pulmonology following - s/p extubation 12/21/17 - cont nebs and supplemental O2 Sepsis likely from PNA, resolved -treated with IV abx, -blood cultures negative so far Bilateral pneumonia -treated with abx -blood and sputum culture neg BALDO 2/2 acute on chronic cardio renal syndrome, ischemic ATN in the setting of severe anemia and sepsis -H/O CKD suspected -on HD since admission -Neprology following - s/p perm cath placed Paralytic ilius - seen on abdominal xry 12/21/17 - s/p NG suction, resolved now - tolerating TF Hyperkalemia, now hypokalemia -will monitor level and replete as needed Elevated d-dimer -VQ scan pending, on heparin drip now Severe anemia, probably sec to CKD/ESRD -s/p blood transfusion with 4 units of PRBC -s/p CT abdomen and pelvis to assess for acute bleed, but no active source per GI -stable H&H post transfusion Acute exacerbation of CHF (congestive heart failure), suspected -2d ECHO report showed EF 40-45% -cont volume removal by increased Ultrafiltration Elevated troponin probably secondary to demand ischemia -Cardiology following HTN -Coreg and PRN hydralazine started -monitor and adjust med as needed DVT prophylaxis on Heparin and GI prophylaxis on Protonix Disposition: Patient remains in critical condition, continue current management Brief history: This is a 67 yo M with unknown past medical history, who was brought in to ER by EMS for progressive shortness of breath, associated with productive cough. As per EMS reports, Pt was placed on 100% nonrebreather and brought to the ER. CXR showed evidence of cardiomegaly and pulmonary edema, and since pt developed worsening respiratory failure with hypercapnia/hypoxia pt required intubation. Labs showed elevated WBC > 17, severe anemia with Hb as low as 4.9, elevated BUN/Cr at 76/7.1 mg/dl along with hyperkalemia and metabolic acidosis. He was transfused and vascath placed for HD per renal. Hospitalist Physical exam: GENERAL: elderly male lying on bed, alert awake HEENT: Normocephalic. Atraumatic. No conjunctival congestion or icterus. Patient has moist mucous membranes. NECK: Supple. Trachea midline. CHEST/LUNGS: Clear to auscultated bilaterally, HEART/CARDIOVASCULAR: Regular in rate and rhythm. S1 and S2 positive. ABDOMEN: Abdomen is remained distended, nontender. Patient has normal bowel sounds. SKIN: There is no rash. Warm and dry. NEURO: AAOx3, no focal deficit MUSCULOSKELETAL: No joint effusion or tenderness. EXTRIMITY: No edema, no cyanosis or clubbing. PSYCH: restraint Subjective Date of service: 12/23/17 Principal diagnosis: Anemia Interval history: Patient seen and examined. Medical records and medication list reviewed. No acute event overnight noted by the RN. on N/c with restraint Started on TF Objective - Constitutional Vitals: Vital Signs - 12hr 12/23/17 12/23/17 12/23/17 04:00 05:00 06:00 Temperature 98.0 F Pulse Rate 87 86 86 Pulse Rate [ Anterior Bilateral Throughout] Pulse Rate [ From Monitor] Respiratory 21 12 17 Rate Respiratory Rate [Anterior Bilateral Throughout] Blood Pressure 119/87 131/70 130/77 O2 Sat by Pulse 99 97 96 Oximetry O2 Sat by Pulse Oximetry [ Anterior Bilateral Throughout] 12/23/17 12/23/17 12/23/17 06:32 07:00 08:00 Temperature 98.1 F Pulse Rate 89 89 86 Pulse Rate [ Anterior Bilateral Throughout] Pulse Rate [ 86 From Monitor] Respiratory 13 14 Rate Respiratory Rate [Anterior Bilateral Throughout] Blood Pressure 135/88 144/79 139/86 O2 Sat by Pulse 97 97 Oximetry O2 Sat by Pulse Oximetry [ Anterior Bilateral Throughout] 12/23/17 12/23/17 12/23/17 09:01 09:15 09:30 Temperature Pulse Rate 89 88 89 Pulse Rate [ Anterior Bilateral Throughout] Pulse Rate [ From Monitor] Respiratory 14 13 13 Rate Respiratory Rate [Anterior Bilateral Throughout] Blood Pressure 150/96 150/97 162/91 O2 Sat by Pulse 96 94 93 Oximetry O2 Sat by Pulse Oximetry [ Anterior Bilateral Throughout] 12/23/17 12/23/17 12/23/17 09:45 10:00 10:15 Temperature Pulse Rate 90 94 H 94 H Pulse Rate [ Anterior Bilateral Throughout] Pulse Rate [ From Monitor] Respiratory 13 20 16 Rate Respiratory Rate [Anterior Bilateral Throughout] Blood Pressure 148/90 146/83 150/90 O2 Sat by Pulse 90 90 89 Oximetry O2 Sat by Pulse Oximetry [ Anterior Bilateral Throughout] 12/23/17 12/23/17 12/23/17 10:31 10:45 10:50 Temperature Pulse Rate 96 H 91 H Pulse Rate [ 89 Anterior Bilateral Throughout] Pulse Rate [ From Monitor] Respiratory 15 14 Rate Respiratory 12 Rate [Anterior Bilateral Throughout] Blood Pressure 146/83 143/80 O2 Sat by Pulse 90 94 Oximetry O2 Sat by Pulse Oximetry [ Anterior Bilateral Throughout] 12/23/17 12/23/17 12/23/17 11:00 11:08 11:15 Temperature Pulse Rate 90 93 H 92 H Pulse Rate [ 79 Anterior Bilateral Throughout] Pulse Rate [ From Monitor] Respiratory 13 14 Rate Respiratory 18 Rate [Anterior Bilateral Throughout] Blood Pressure 145/80 145/80 147/83 O2 Sat by Pulse 93 91 Oximetry O2 Sat by Pulse Oximetry [ Anterior Bilateral Throughout] 12/23/17 12/23/17 12/23/17 11:30 11:45 12:00 Temperature 97.9 F 97.9 F Pulse Rate 89 89 90 Pulse Rate [ Anterior Bilateral Throughout] Pulse Rate [ From Monitor] Respiratory 12 15 12 Rate Respiratory Rate [Anterior Bilateral Throughout] Blood Pressure 144/82 151/80 144/85 O2 Sat by Pulse 91 91 95 Oximetry O2 Sat by Pulse 94 Oximetry [ Anterior Bilateral Throughout] 12/23/17 12/23/17 12/23/17 12:15 12:30 12:45 Temperature Pulse Rate 102 H 106 H 105 H Pulse Rate [ Anterior Bilateral Throughout] Pulse Rate [ From Monitor] Respiratory 14 15 15 Rate Respiratory Rate [Anterior Bilateral Throughout] Blood Pressure 133/78 132/75 122/84 O2 Sat by Pulse 94 97 96 Oximetry O2 Sat by Pulse Oximetry [ Anterior Bilateral Throughout] 12/23/17 12/23/17 12/23/17 13:00 13:01 13:15 Temperature Pulse Rate 110 H 118 H 109 H Pulse Rate [ Anterior Bilateral Throughout] Pulse Rate [ From Monitor] Respiratory 15 15 Rate Respiratory Rate [Anterior Bilateral Throughout] Blood Pressure 112/71 112/71 117/84 O2 Sat by Pulse 90 95 Oximetry O2 Sat by Pulse Oximetry [ Anterior Bilateral Throughout] 12/23/17 12/23/17 12/23/17 13:30 13:45 14:00 Temperature Pulse Rate 108 H 105 H 109 H Pulse Rate [ Anterior Bilateral Throughout] Pulse Rate [ From Monitor] Respiratory 16 15 15 Rate Respiratory Rate [Anterior Bilateral Throughout] Blood Pressure 127/85 138/91 132/89 O2 Sat by Pulse 94 96 97 Oximetry O2 Sat by Pulse Oximetry [ Anterior Bilateral Throughout] 12/23/17 12/23/17 12/23/17 14:15 14:30 14:45 Temperature Pulse Rate 107 H 103 H 109 H Pulse Rate [ Anterior Bilateral Throughout] Pulse Rate [ From Monitor] Respiratory 17 16 16 Rate Respiratory Rate [Anterior Bilateral Throughout] Blood Pressure 139/84 140/93 138/93 O2 Sat by Pulse 97 97 Oximetry O2 Sat by Pulse Oximetry [ Anterior Bilateral Throughout] 12/23/17 12/23/17 14:55 15:00 Temperature Pulse Rate 109 H 110 H Pulse Rate [ Anterior Bilateral Throughout] Pulse Rate [ From Monitor] Respiratory 16 Rate Respiratory Rate [Anterior Bilateral Throughout] Blood Pressure 138/93 127/90 O2 Sat by Pulse 96 Oximetry O2 Sat by Pulse Oximetry [ Anterior Bilateral Throughout] - Labs CBC & Chem 7: 12/24/17 04:40 12/24/17 04:40 Labs: Abnormal lab results 12/22/17 12/23/17 12/23/17 Range/Units 18:55 00:05 04:35 WBC 12.7 H (4.5-11.0) K/mm3 RBC 3.64 L (3.65-5.03) M/mm3 Hgb 9.8 L (11.8-15.2) gm/dl Hct 30.0 L (35.5-45.6) % MCV 83 L (84-94) fl MCH 27 L (28-32) pg RDW 18.9 H (13.2-15.2) % Lymph % (Auto) 10.3 L (13.4-35.0) % Nelson % (Auto) 10.3 H (0.0-7.3) % Nelson # 1.3 H (0.0-0.8) K/mm3 Seg Neutrophils % 77.5 H (40.0-70.0) % Seg Neutrophils # 9.9 H (1.8-7.7) K/mm3 Heparin Anti-Xa Level (0.3-0.7) U.I./ml Chloride (98-107) mmol/L Carbon Dioxide (22-30) mmol/L BUN (9-20) mg/dL Creatinine (0.8-1.5) mg/dL Glucose (75-100) mg/dL POC Glucose 120 H 108 H (70-105) 12/23/17 12/23/17 12/23/17 Range/Units 04:35 04:35 06:27 WBC (4.5-11.0) K/mm3 RBC (3.65-5.03) M/mm3 Hgb (11.8-15.2) gm/dl Hct (35.5-45.6) % MCV (84-94) fl MCH (28-32) pg RDW (13.2-15.2) % Lymph % (Auto) (13.4-35.0) % Nelson % (Auto) (0.0-7.3) % Nelson # (0.0-0.8) K/mm3 Seg Neutrophils % (40.0-70.0) % Seg Neutrophils # (1.8-7.7) K/mm3 Heparin Anti-Xa Level 0.24 L (0.3-0.7) U.I./ml Chloride 88.9 L (98-107) mmol/L Carbon Dioxide 16 L (22-30) mmol/L BUN 107 H (9-20) mg/dL Creatinine 9.8 H (0.8-1.5) mg/dL Glucose 140 H (75-100) mg/dL POC Glucose 143 H (70-105) 12/23/17 Range/Units 11:55 WBC (4.5-11.0) K/mm3 RBC (3.65-5.03) M/mm3 Hgb (11.8-15.2) gm/dl Hct (35.5-45.6) % MCV (84-94) fl MCH (28-32) pg RDW (13.2-15.2) % Lymph % (Auto) (13.4-35.0) % Nelson % (Auto) (0.0-7.3) % Nelson # (0.0-0.8) K/mm3 Seg Neutrophils % (40.0-70.0) % Seg Neutrophils # (1.8-7.7) K/mm3 Heparin Anti-Xa Level (0.3-0.7) U.I./ml Chloride (98-107) mmol/L Carbon Dioxide (22-30) mmol/L BUN (9-20) mg/dL Creatinine (0.8-1.5) mg/dL Glucose (75-100) mg/dL POC Glucose 161 H (70-105)
[2017-12-23] MEDS ORDERED: NACL 0.9 (PRIMING MACHINE ONLY DIALYSIS) MC ONE (16:50)
--- NOTE | 2017-12-23 19:28 | Vascular Lab Report ---
LOWER EXTREMITY VENOUS DUPLEX: REASON FOR EXAM: Elevated d-dimer. COMMENTS ON THE RIGHT: There is acute partially occluding thrombus associated with a catheter in the right femoral vein. The remaining veins visualized are freely compressible without evidence of internal echogenicity. Spontaneous and phasic flow is absent proximally. COMMENTS ON THE LEFT: All veins visualized are freely compressible without evidence of internal echogenicity. Flow is spontaneous and phasic throughout. IMPRESSION: Acute deep venous thrombosis of the right common femoral vein associated with a indwelling catheter. No evidence of acute deep venous thrombosis in the left lower extremity.
[2017-12-23] MEDS: ATIVAN IV PRN (22:15)
[2017-12-24] MEDS: HALDOL IV PRN (00:01)
[2017-12-24] MEDS: SODIUM CHLORIDE FLUSH SYRINGE 10 ML IV SCH ×2 (00:06→09:48)
[2017-12-24] MEDS: HumaLOG SUB-Q SCH ×4 (00:08→16:42)
[2017-12-24 05:14] LABS: Basophils # (Auto) 0.1 K/mm3 (0.0-0.1); Basophils % (Auto) 0.9 % (0.0-1.8); Eosinophils # (Auto) 0.2 K/mm3 (0.0-0.4); Eosinophils % (Auto) 1.2 % (0.0-4.3); Hematocrit 30.4 % (35.5-45.6); Hemoglobin 9.8 gm/dl (11.8-15.2); Lymphocytes # (Auto) 1.5 K/mm3 (1.2-5.4); Lymphocytes % (Auto) 10.7 % (13.4-35.0); Mean Corpuscular HGB Conc 32 % (32-34); Mean Corpuscular Hemoglobin 26 pg (28-32); Mean Corpuscular Volume 81 fl (84-94); Monocytes # (Auto) 1.7 K/mm3 (0.0-0.8); Monocytes % (Auto) 12.2 % (0.0-7.3); Platelet Count 424 K/mm3 (140-440); Red Blood Count 3.76 M/mm3 (3.65-5.03); Red Cell Distribution Width 19.1 % (13.2-15.2)
[2017-12-24 05:39] LABS: Calcium 8.8 mg/dL (8.4-10.2)
[2017-12-24] MEDS: HEPARIN/ 0.45% NACL-25,000 UNIT/500 ML 25,000 UNIT/500 ML BAG IV SCH (05:46)
[2017-12-24] MEDS: PREVACID SOLUTAB FEEDTUBE SCH ×2 (06:13→09:47)
--- NOTE | 2017-12-24 08:04 | Progress Note ---
Assessment and Plan - Patient Problems (1) BALDO (acute kidney injury) Current Visit: Yes Status: Acute Plan to address problem: Likely in the setting of acure cardiorenal syndrome. No signs of renal recovery at this time and patient remains on dialysis, on TTS schedule He has had permcath placed and awaiting outpatient dialysis to be set up. Will need femoral vasc cath removed. Next dialysis Monday, (2) Acute exacerbation of CHF (congestive heart failure) Current Visit: Yes Status: Acute Qualifiers: Heart failure type: combined systolic and diastolic Qualified Code(s): I50.43 - Acute on chronic combined systolic (congestive) and diastolic ( congestive) heart failure Plan to address problem: Volume status improved with dialysis. 1L UF removed with last HD (3) Acidosis, metabolic Current Visit: Yes Status: Acute Plan to address problem: Improved with dialysis. Will continue to monitor. (4) Hyperkalemia Current Visit: Yes Status: Acute Plan to address problem: Improved with clearance provided with dialysis. He is NPO at present. He should be on a low K renal diet when not NPO. Will continue to monitor. (5) Respiratory failure Current Visit: Yes Status: Acute Qualifiers: Chronicity: acute Respiratory failure complication: hypoxia Qualified Code(s): J96.01 - Acute respiratory failure with hypoxia Plan to address problem: Tolerating well with adequate O2 sats on O2 via NC. (6) Severe anemia Current Visit: Yes Status: Chronic Plan to address problem: improved with transfusions. Will closely monitor. Per primary notes, possible plan for EGD/colonoscopy when stable. Will follow up. Subjective Principal diagnosis: Anemia Interval history: No acute events overnight. HD session yesterday per TTS schedule. Next HD session is Monday. Labs noted. Objective - Vital Signs Vital signs: Vital Signs - 12hr 12/23/17 12/23/17 12/23/17 20:00 20:06 20:15 Temperature 97.6 F Pulse Rate 104 H 99 H Pulse Rate [ 104 H Anterior Bilateral Throughout] Pulse Rate [ 86 From Monitor] Respiratory 20 15 Rate Respiratory 18 Rate [Anterior Bilateral Throughout] Blood Pressure 152/90 140/89 O2 Sat by Pulse 97 97 100 Oximetry 12/23/17 12/23/17 12/23/17 20:16 20:30 20:45 Temperature Pulse Rate 100 H 98 H Pulse Rate [ 100 H Anterior Bilateral Throughout] Pulse Rate [ From Monitor] Respiratory 14 15 Rate Respiratory 18 Rate [Anterior Bilateral Throughout] Blood Pressure 141/86 153/86 O2 Sat by Pulse 98 98 Oximetry 12/23/17 12/23/17 12/23/17 20:49 21:00 21:15 Temperature Pulse Rate 105 H 104 H 106 H Pulse Rate [ Anterior Bilateral Throughout] Pulse Rate [ From Monitor] Respiratory 15 15 16 Rate Respiratory Rate [Anterior Bilateral Throughout] Blood Pressure 153/86 152/83 153/93 O2 Sat by Pulse 99 99 96 Oximetry 12/23/17 12/23/17 12/23/17 21:30 21:45 22:00 Temperature Pulse Rate 105 H 106 H 99 H Pulse Rate [ Anterior Bilateral Throughout] Pulse Rate [ From Monitor] Respiratory 17 17 18 Rate Respiratory Rate [Anterior Bilateral Throughout] Blood Pressure 152/84 163/89 142/87 O2 Sat by Pulse 97 97 98 Oximetry 12/23/17 12/23/17 12/23/17 22:15 22:30 22:45 Temperature Pulse Rate 104 H 102 H 106 H Pulse Rate [ Anterior Bilateral Throughout] Pulse Rate [ From Monitor] Respiratory 19 16 26 H Rate Respiratory Rate [Anterior Bilateral Throughout] Blood Pressure 143/89 155/92 155/92 O2 Sat by Pulse 96 97 97 Oximetry 12/23/17 12/23/17 12/23/17 23:01 23:15 23:31 Temperature Pulse Rate 120 H 126 H 113 H Pulse Rate [ Anterior Bilateral Throughout] Pulse Rate [ From Monitor] Respiratory 21 24 17 Rate Respiratory Rate [Anterior Bilateral Throughout] Blood Pressure 146/95 146/95 179/67 O2 Sat by Pulse 97 94 Oximetry 12/23/17 12/24/17 12/24/17 23:45 00:00 00:15 Temperature 98.4 F Pulse Rate 109 H 110 H 114 H Pulse Rate [ Anterior Bilateral Throughout] Pulse Rate [ 86 From Monitor] Respiratory 19 20 22 Rate Respiratory Rate [Anterior Bilateral Throughout] Blood Pressure 179/67 145/88 163/88 O2 Sat by Pulse 96 97 Oximetry 12/24/17 12/24/17 12/24/17 00:31 00:45 01:01 Temperature Pulse Rate 110 H 109 H 107 H Pulse Rate [ Anterior Bilateral Throughout] Pulse Rate [ From Monitor] Respiratory 21 20 17 Rate Respiratory Rate [Anterior Bilateral Throughout] Blood Pressure 149/88 168/104 190/75 O2 Sat by Pulse 96 95 Oximetry 09/23/18 09/23/18 09/23/18 01:15 01:30 01:45 Temperature Pulse Rate 111 H 108 H 107 H Pulse Rate [ Anterior Bilateral Throughout] Pulse Rate [ From Monitor] Respiratory 17 20 19 Rate Respiratory Rate [Anterior Bilateral Throughout] Blood Pressure 180/99 168/91 175/78 O2 Sat by Pulse 95 94 95 Oximetry 12/24/17 12/24/17 12/24/17 02:01 02:15 02:31 Temperature Pulse Rate 104 H 101 H 109 H Pulse Rate [ Anterior Bilateral Throughout] Pulse Rate [ From Monitor] Respiratory 16 15 21 Rate Respiratory Rate [Anterior Bilateral Throughout] Blood Pressure 144/72 149/79 149/79 O2 Sat by Pulse 96 98 94 Oximetry 12/24/17 12/24/17 12/24/17 02:45 03:00 03:15 Temperature Pulse Rate 109 H 110 H 113 H Pulse Rate [ Anterior Bilateral Throughout] Pulse Rate [ From Monitor] Respiratory 21 20 20 Rate Respiratory Rate [Anterior Bilateral Throughout] Blood Pressure 149/79 189/95 192/101 O2 Sat by Pulse 96 96 95 Oximetry 12/24/17 12/24/17 12/24/17 03:31 03:45 04:00 Temperature 97.6 F Pulse Rate 109 H 107 H 108 H Pulse Rate [ Anterior Bilateral Throughout] Pulse Rate [ 86 From Monitor] Respiratory 18 16 21 Rate Respiratory Rate [Anterior Bilateral Throughout] Blood Pressure 158/82 174/87 174/87 O2 Sat by Pulse 95 96 95 Oximetry 12/24/17 12/24/17 12/24/17 04:15 04:30 04:45 Temperature Pulse Rate 105 H 105 H 112 H Pulse Rate [ Anterior Bilateral Throughout] Pulse Rate [ From Monitor] Respiratory 16 17 21 Rate Respiratory Rate [Anterior Bilateral Throughout] Blood Pressure 158/82 154/78 157/79 O2 Sat by Pulse 97 98 98 Oximetry 12/24/17 12/24/17 12/24/17 05:01 05:15 05:30 Temperature Pulse Rate 114 H 106 H 108 H Pulse Rate [ Anterior Bilateral Throughout] Pulse Rate [ From Monitor] Respiratory 21 18 17 Rate Respiratory Rate [Anterior Bilateral Throughout] Blood Pressure 140/69 150/88 154/87 O2 Sat by Pulse 96 95 95 Oximetry 12/24/17 12/24/17 12/24/17 05:45 06:01 06:15 Temperature Pulse Rate 105 H 106 H 99 H Pulse Rate [ Anterior Bilateral Throughout] Pulse Rate [ From Monitor] Respiratory 18 18 15 Rate Respiratory Rate [Anterior Bilateral Throughout] Blood Pressure 140/69 135/93 141/76 O2 Sat by Pulse 97 98 Oximetry 12/24/17 12/24/17 12/24/17 06:31 06:45 07:01 Temperature Pulse Rate 100 H 102 H 102 H Pulse Rate [ Anterior Bilateral Throughout] Pulse Rate [ From Monitor] Respiratory 15 18 19 Rate Respiratory Rate [Anterior Bilateral Throughout] Blood Pressure 141/76 141/76 145/88 O2 Sat by Pulse 92 97 99 Oximetry - General Appearance General appearance: well-developed, well-nourished EENT: ATNC Neck: no JVD, supple Respiratory: Present: Clear to Ascultation Cardiology: regular, other ([facility]J permcath ) Gastrointestinal: normal, normoactive bowel sounds Integumentary: no rash Neurologic: no focal deficit, confused Musculoskeletal: other (-edema ) - Lab 12/24/17 04:40 12/24/17 04:40 Most recent lab results Calcium 8.8 mg/dL (8.4-10.2) 12/24/17 04:40 Phosphorus 11.90 mg/dL (2.5-4.5) H 12/19/17 05:10 Urine Creatinine 81.7 mg/dL (0.1-20.0) H 12/16/17 12:05 Urine Sodium 62 mmol/L 12/16/17 12:05 Urine Total Protein 493 mg/dL (5-11.8) H 12/16/17 12:05 - Allied health notes Allied health notes reviewed: nursing
[2017-12-24] MEDS: DUONEB *Not for PRN Use IH SCH ×4 (08:44→20:19)
[2017-12-24] MEDS: COREG PO SCH (09:47)
--- NOTE | 2017-12-24 09:53 | Progress Note ---
Assessment and Plan - Patient Problems (1) DVT (deep venous thrombosis) Current Visit: Yes Status: Acute (2) BALDO (acute kidney injury) Current Visit: Yes Status: Acute (3) Acidosis, metabolic Current Visit: Yes Status: Acute (4) Acute heart failure Current Visit: Yes Status: Acute (5) Acute pulmonary edema Current Visit: Yes Status: Acute (6) Bilateral pneumonia Current Visit: Yes Status: Acute Qualifiers: Lung location: lower lobe of lung Subjective Principal diagnosis: Anemia Interval history: eyes open, om o2 at 2lpm sat 97% Objective Vital Signs - 12hr 12/23/17 12/23/17 12/23/17 22:00 22:15 22:30 Temperature Pulse Rate 99 H 104 H 102 H Pulse Rate [ Anterior Bilateral Throughout] Pulse Rate [ From Monitor] Respiratory 18 19 16 Rate Respiratory Rate [Anterior Bilateral Throughout] Blood Pressure 142/87 143/89 155/92 O2 Sat by Pulse 98 96 97 Oximetry 12/23/17 12/23/17 12/23/17 22:45 23:01 23:15 Temperature Pulse Rate 106 H 120 H 126 H Pulse Rate [ Anterior Bilateral Throughout] Pulse Rate [ From Monitor] Respiratory 26 H 21 24 Rate Respiratory Rate [Anterior Bilateral Throughout] Blood Pressure 155/92 146/95 146/95 O2 Sat by Pulse 97 97 Oximetry 12/23/17 12/23/17 12/24/17 23:31 23:45 00:00 Temperature 98.4 F Pulse Rate 113 H 109 H 110 H Pulse Rate [ Anterior Bilateral Throughout] Pulse Rate [ 86 From Monitor] Respiratory 17 19 20 Rate Respiratory Rate [Anterior Bilateral Throughout] Blood Pressure 179/67 179/67 145/88 O2 Sat by Pulse 94 96 97 Oximetry 12/24/17 12/24/17 12/24/17 00:15 00:31 00:45 Temperature Pulse Rate 114 H 110 H 109 H Pulse Rate [ Anterior Bilateral Throughout] Pulse Rate [ From Monitor] Respiratory 22 21 20 Rate Respiratory Rate [Anterior Bilateral Throughout] Blood Pressure 163/88 149/88 168/104 O2 Sat by Pulse 96 Oximetry 12/24/17 12/24/17 12/24/17 01:01 01:15 01:30 Temperature Pulse Rate 107 H 111 H 108 H Pulse Rate [ Anterior Bilateral Throughout] Pulse Rate [ From Monitor] Respiratory 17 17 20 Rate Respiratory Rate [Anterior Bilateral Throughout] Blood Pressure 190/75 180/99 168/91 O2 Sat by Pulse 95 95 94 Oximetry 12/24/17 12/24/17 12/24/17 01:45 02:01 02:15 Temperature Pulse Rate 107 H 104 H 101 H Pulse Rate [ Anterior Bilateral Throughout] Pulse Rate [ From Monitor] Respiratory 19 16 15 Rate Respiratory Rate [Anterior Bilateral Throughout] Blood Pressure 175/78 144/72 149/79 O2 Sat by Pulse 95 96 98 Oximetry 12/24/17 12/24/17 12/24/17 02:31 02:45 03:00 Temperature Pulse Rate 109 H 109 H 110 H Pulse Rate [ Anterior Bilateral Throughout] Pulse Rate [ From Monitor] Respiratory 21 21 20 Rate Respiratory Rate [Anterior Bilateral Throughout] Blood Pressure 149/79 149/79 189/95 O2 Sat by Pulse 94 96 96 Oximetry 12/24/17 12/24/17 12/24/17 03:15 03:31 03:45 Temperature Pulse Rate 113 H 109 H 107 H Pulse Rate [ Anterior Bilateral Throughout] Pulse Rate [ From Monitor] Respiratory 20 18 16 Rate Respiratory Rate [Anterior Bilateral Throughout] Blood Pressure 192/101 158/82 174/87 O2 Sat by Pulse 95 95 96 Oximetry 12/24/17 12/24/17 12/24/17 04:00 04:15 04:30 Temperature 97.6 F Pulse Rate 108 H 105 H 105 H Pulse Rate [ Anterior Bilateral Throughout] Pulse Rate [ 86 From Monitor] Respiratory 21 16 17 Rate Respiratory Rate [Anterior Bilateral Throughout] Blood Pressure 174/87 158/82 154/78 O2 Sat by Pulse 95 97 98 Oximetry 12/24/17 12/24/17 12/24/17 04:45 05:01 05:15 Temperature Pulse Rate 112 H 114 H 106 H Pulse Rate [ Anterior Bilateral Throughout] Pulse Rate [ From Monitor] Respiratory 21 21 18 Rate Respiratory Rate [Anterior Bilateral Throughout] Blood Pressure 157/79 140/69 150/88 O2 Sat by Pulse 98 96 95 Oximetry 12/24/17 12/24/17 12/24/17 05:30 05:45 06:01 Temperature Pulse Rate 108 H 105 H 106 H Pulse Rate [ Anterior Bilateral Throughout] Pulse Rate [ From Monitor] Respiratory 17 18 18 Rate Respiratory Rate [Anterior Bilateral Throughout] Blood Pressure 154/87 140/69 135/93 O2 Sat by Pulse 95 97 Oximetry 12/24/17 12/24/17 12/24/17 06:15 06:31 06:45 Temperature Pulse Rate 99 H 100 H 102 H Pulse Rate [ Anterior Bilateral Throughout] Pulse Rate [ From Monitor] Respiratory 15 15 18 Rate Respiratory Rate [Anterior Bilateral Throughout] Blood Pressure 141/76 141/76 141/76 O2 Sat by Pulse 98 92 97 Oximetry 12/24/17 12/24/17 12/24/17 07:01 07:15 07:31 Temperature Pulse Rate 102 H 98 H 96 H Pulse Rate [ Anterior Bilateral Throughout] Pulse Rate [ From Monitor] Respiratory 19 21 14 Rate Respiratory Rate [Anterior Bilateral Throughout] Blood Pressure 145/88 145/88 145/88 O2 Sat by Pulse 99 96 97 Oximetry 12/24/17 12/24/17 12/24/17 07:45 08:00 08:15 Temperature 98.3 F Pulse Rate 103 H 96 H 99 H Pulse Rate [ Anterior Bilateral Throughout] Pulse Rate [ From Monitor] Respiratory 16 15 18 Rate Respiratory Rate [Anterior Bilateral Throughout] Blood Pressure 145/88 139/79 139/79 O2 Sat by Pulse 98 97 99 Oximetry 12/24/17 12/24/17 12/24/17 08:31 08:44 08:45 Temperature Pulse Rate 102 H 106 H Pulse Rate [ 107 H Anterior Bilateral Throughout] Pulse Rate [ From Monitor] Respiratory 31 H 18 Rate Respiratory 16 Rate [Anterior Bilateral Throughout] Blood Pressure 139/79 139/79 O2 Sat by Pulse 98 97 Oximetry 12/24/17 12/24/17 12/24/17 08:50 08:57 09:00 Temperature Pulse Rate 99 H Pulse Rate [ 99 H Anterior Bilateral Throughout] Pulse Rate [ From Monitor] Respiratory 15 Rate Respiratory 16 Rate [Anterior Bilateral Throughout] Blood Pressure 147/69 O2 Sat by Pulse 98 100 Oximetry 12/24/17 12/24/17 09:15 09:47 Temperature Pulse Rate 103 H 97 H Pulse Rate [ Anterior Bilateral Throughout] Pulse Rate [ From Monitor] Respiratory 22 Rate Respiratory Rate [Anterior Bilateral Throughout] Blood Pressure 139/79 147/69 O2 Sat by Pulse 96 Oximetry Constitutional: no acute distress, alert ENT: other (dobhoff noted) Neck: supple Effort: normal Ascultation: Bilateral: rhonchi (rare) Percussion: Bilateral: not dull Cardiovascular: regular rate and rhythm Gastrointestinal: normoactive bowel sounds, soft, non-tender, other (no rebound tenderness, bowel sounds present,still looks somewhat distended) Integumentary: normal Extremities: no edema, pink and warm, pulses normal Neurologic: normal mental status, non-focal exam, pupils equal and round CBC and BMP: 12/24/17 04:40 12/24/17 04:40 ABG, PT/INR, D-dimer: ABG POC ABG pH 7.446 (7.35-7.45) 12/21/17 03:44 POC ABG pCO2 27.6 (35-45) L 12/21/17 03:44 POC ABG pO2 90 (80-105) 12/21/17 03:44 POC ABG HCO3 19.0 12/21/17 03:44 POC ABG Total CO2 20 12/21/17 03:44 POC ABG O2 Sat 97 12/21/17 03:44 PT/INR, D-dimer PT 14.3 Sec. (12.2-14.9) 12/19/17 19:17 INR 1.05 (0.87-1.13) 12/19/17 19:17 D-Dimer 1108.83 ng/mlDDU (0-234) H 12/15/17 17:16 Abnormal lab findings: Abnormal Labs 12/15/17 12/15/17 12/15/17 17:16 17:16 17:16 WBC 16.7 H RBC 2.12 L Hgb 4.9 L* Hct 16.0 L* MCV 76 L MCH 23 L MCHC 30 L RDW 17.3 H Plt Count 445 H Lymph % (Auto) 11.3 L Green % (Auto) 7.4 H Green # 1.2 H Seg Neutrophils % 80.2 H Seg Neuts % (Manual) Lymphocytes % (Manual) Monocytes % (Manual) Seg Neutrophils # 13.4 H Seg Neutrophils # Man Lymphocytes # (Manual) Monocytes # (Manual) D-Dimer 1108.83 H Heparin Anti-Xa Level POC ABG pH POC ABG pCO2 POC ABG pO2 VBG pH Sodium Potassium 5.1 H Chloride Carbon Dioxide 18 L BUN 76 H Creatinine 7.1 H Glucose 148 H POC Glucose Calcium 8.2 L Phosphorus Iron Total Creatine Kinase 736 H CK-MB (CK-2) 7.7 H Troponin T 0.067 H NT-Pro-B Natriuret Pep Albumin Triglycerides 206 H HDL Cholesterol 29 L Urine WBC (Auto) Urine Creatinine Urine Total Protein Crossmatch 12/15/17 12/15/17 12/15/17 17:16 17:45 18:01 WBC RBC Hgb Hct MCV MCH MCHC RDW Plt Count Lymph % (Auto) Green % (Auto) Green # Seg Neutrophils % Seg Neuts % (Manual) Lymphocytes % (Manual) Monocytes % (Manual) Seg Neutrophils # Seg Neutrophils # Man Lymphocytes # (Manual) Monocytes # (Manual) D-Dimer Heparin Anti-Xa Level POC ABG pH POC ABG pCO2 POC ABG pO2 VBG pH 7.204 L Sodium Potassium Chloride Carbon Dioxide BUN Creatinine Glucose POC Glucose Calcium Phosphorus Iron Total Creatine Kinase CK-MB (CK-2) Troponin T NT-Pro-B Natriuret Pep 67845 H Albumin Triglycerides HDL Cholesterol Urine WBC (Auto) Urine Creatinine Urine Total Protein Crossmatch See Detail 12/15/17 12/15/17 12/16/17 18:32 23:26 00:24 WBC RBC Hgb Hct MCV MCH MCHC RDW Plt Count Lymph % (Auto) Green % (Auto) Green # Seg Neutrophils % Seg Neuts % (Manual) Lymphocytes % (Manual) Monocytes % (Manual) Seg Neutrophils # Seg Neutrophils # Man Lymphocytes # (Manual) Monocytes # (Manual) D-Dimer Heparin Anti-Xa Level POC ABG pH 7.324 L 7.142 L POC ABG pCO2 33.6 L 50.4 H POC ABG pO2 110 H 107 H VBG pH Sodium Potassium Chloride Carbon Dioxide BUN Creatinine Glucose POC Glucose Calcium Phosphorus Iron 37 L Total Creatine Kinase CK-MB (CK-2) Troponin T NT-Pro-B Natriuret Pep Albumin Triglycerides HDL Cholesterol Urine WBC (Auto) Urine Creatinine Urine Total Protein Crossmatch 12/16/17 12/16/17 12/16/17 03:41 03:43 03:43 WBC 16.3 H RBC 3.01 L Hgb 7.5 L Hct 24.3 L D MCV 81 L MCH 25 L MCHC 31 L RDW 17.7 H Plt Count Lymph % (Auto) 7.9 L Green % (Auto) 7.8 H Green # 1.3 H Seg Neutrophils % 83.7 H Seg Neuts % (Manual) Lymphocytes % (Manual) Monocytes % (Manual) Seg Neutrophils # 13.7 H Seg Neutrophils # Man Lymphocytes # (Manual) Monocytes # (Manual) D-Dimer Heparin Anti-Xa Level POC ABG pH 7.211 L POC ABG pCO2 45.3 H POC ABG pO2 123 H VBG pH Sodium Potassium 5.3 H Chloride Carbon Dioxide 16 L BUN 76 H Creatinine 7.5 H Glucose 121 H POC Glucose Calcium 7.9 L Phosphorus Iron Total Creatine Kinase CK-MB (CK-2) Troponin T NT-Pro-B Natriuret Pep Albumin 3.6 L Triglycerides HDL Cholesterol Urine WBC (Auto) Urine Creatinine Urine Total Protein Crossmatch 12/16/17 12/16/17 12/16/17 10:11 11:10 11:41 WBC 17.6 H RBC 3.16 L Hgb 7.9 L Hct 24.5 L MCV 78 L MCH 25 L MCHC RDW 17.7 H Plt Count Lymph % (Auto) 8.6 L Green % (Auto) Green # 1.3 H Seg Neutrophils % 83.7 H Seg Neuts % (Manual) Lymphocytes % (Manual) Monocytes % (Manual) Seg Neutrophils # 14.7 H Seg Neutrophils # Man Lymphocytes # (Manual) Monocytes # (Manual) D-Dimer Heparin Anti-Xa Level POC ABG pH 7.491 H POC ABG pCO2 POC ABG pO2 56 L VBG pH Sodium Potassium Chloride Carbon Dioxide BUN Creatinine Glucose POC Glucose 127 H Calcium Phosphorus Iron Total Creatine Kinase CK-MB (CK-2) Troponin T NT-Pro-B Natriuret Pep Albumin Triglycerides HDL Cholesterol Urine WBC (Auto) Urine Creatinine Urine Total Protein Crossmatch 12/16/17 12/16/17 12/16/17 12:05 12:05 12:15 WBC RBC Hgb 7.4 L Hct 22.8 L MCV MCH MCHC RDW Plt Count Lymph % (Auto) Green % (Auto) Green # Seg Neutrophils % Seg Neuts % (Manual) Lymphocytes % (Manual) Monocytes % (Manual) Seg Neutrophils # Seg Neutrophils # Man Lymphocytes # (Manual) Monocytes # (Manual) D-Dimer Heparin Anti-Xa Level POC ABG pH POC ABG pCO2 POC ABG pO2 VBG pH Sodium Potassium Chloride Carbon Dioxide BUN Creatinine Glucose POC Glucose Calcium Phosphorus Iron Total Creatine Kinase CK-MB (CK-2) Troponin T NT-Pro-B Natriuret Pep Albumin Triglycerides HDL Cholesterol Urine WBC (Auto) > 182.0 H Urine Creatinine 81.7 H Urine Total Protein 493 H Crossmatch 0912/16/17 12/17/17 17:52 18:08 00:11 WBC RBC Hgb 6.6 L 6.9 L Hct 20.6 L 20.8 L MCV MCH MCHC RDW Plt Count Lymph % (Auto) Green % (Auto) Green # Seg Neutrophils % Seg Neuts % (Manual) Lymphocytes % (Manual) Monocytes % (Manual) Seg Neutrophils # Seg Neutrophils # Man Lymphocytes # (Manual) Monocytes # (Manual) D-Dimer Heparin Anti-Xa Level POC ABG pH POC ABG pCO2 POC ABG pO2 VBG pH Sodium Potassium Chloride Carbon Dioxide BUN Creatinine Glucose POC Glucose 127 H Calcium Phosphorus Iron Total Creatine Kinase CK-MB (CK-2) Troponin T NT-Pro-B Natriuret Pep Albumin Triglycerides HDL Cholesterol Urine WBC (Auto) Urine Creatinine Urine Total Protein Crossmatch 12/17/17 12/17/17 12/17/17 00:24 04:03 07:54 WBC 13.1 H RBC 3.06 L Hgb 8.1 L Hct 24.3 L MCV 79 L MCH 26 L MCHC RDW 18.6 H Plt Count Lymph % (Auto) 11.9 L Green % (Auto) 8.6 H Green # 1.1 H Seg Neutrophils % 77.9 H Seg Neuts % (Manual) Lymphocytes % (Manual) Monocytes % (Manual) Seg Neutrophils # 10.2 H Seg Neutrophils # Man Lymphocytes # (Manual) Monocytes # (Manual) D-Dimer Heparin Anti-Xa Level POC ABG pH 7.453 H POC ABG pCO2 33.6 L POC ABG pO2 VBG pH Sodium Potassium Chloride Carbon Dioxide BUN Creatinine Glucose POC Glucose 126 H Calcium Phosphorus Iron Total Creatine Kinase CK-MB (CK-2) Troponin T NT-Pro-B Natriuret Pep Albumin Triglycerides HDL Cholesterol Urine WBC (Auto) Urine Creatinine Urine Total Protein Crossmatch 12/17/17 12/17/17 12/17/17 07:54 09:22 11:55 WBC RBC Hgb Hct MCV MCH MCHC RDW Plt Count Lymph % (Auto) Green % (Auto) Green # Seg Neutrophils % Seg Neuts % (Manual) Lymphocytes % (Manual) Monocytes % (Manual) Seg Neutrophils # Seg Neutrophils # Man Lymphocytes # (Manual) Monocytes # (Manual) D-Dimer Heparin Anti-Xa Level POC ABG pH POC ABG pCO2 POC ABG pO2 VBG pH Sodium Potassium 3.4 L D Chloride Carbon Dioxide 21 L BUN 65 H Creatinine 6.4 H Glucose 133 H POC Glucose 112 H 119 H Calcium Phosphorus Iron Total Creatine Kinase CK-MB (CK-2) Troponin T NT-Pro-B Natriuret Pep Albumin Triglycerides HDL Cholesterol Urine WBC (Auto) Urine Creatinine Urine Total Protein Crossmatch 12/17/17 12/17/17 12/17/17 13:07 17:15 17:29 WBC RBC Hgb 9.3 L 9.8 L Hct 27.9 L 29.8 L MCV MCH MCHC RDW Plt Count Lymph % (Auto) Green % (Auto) Green # Seg Neutrophils % Seg Neuts % (Manual) Lymphocytes % (Manual) Monocytes % (Manual) Seg Neutrophils # Seg Neutrophils # Man Lymphocytes # (Manual) Monocytes # (Manual) D-Dimer Heparin Anti-Xa Level POC ABG pH POC ABG pCO2 POC ABG pO2 VBG pH Sodium Potassium Chloride Carbon Dioxide BUN Creatinine Glucose POC Glucose 158 H Calcium Phosphorus Iron Total Creatine Kinase CK-MB (CK-2) Troponin T NT-Pro-B Natriuret Pep Albumin Triglycerides HDL Cholesterol Urine WBC (Auto) Urine Creatinine Urine Total Protein Crossmatch 12/18/17 12/18/17 12/18/17 00:03 00:28 04:44 WBC RBC Hgb 9.9 L Hct 29.9 L MCV MCH MCHC RDW Plt Count Lymph % (Auto) Green % (Auto) Green # Seg Neutrophils % Seg Neuts % (Manual) Lymphocytes % (Manual) Monocytes % (Manual) Seg Neutrophils # Seg Neutrophils # Man Lymphocytes # (Manual) Monocytes # (Manual) D-Dimer Heparin Anti-Xa Level POC ABG pH 7.497 H POC ABG pCO2 27.0 L POC ABG pO2 136 H VBG pH Sodium Potassium Chloride Carbon Dioxide BUN Creatinine Glucose POC Glucose 109 H Calcium Phosphorus Iron Total Creatine Kinase CK-MB (CK-2) Troponin T NT-Pro-B Natriuret Pep Albumin Triglycerides HDL Cholesterol Urine WBC (Auto) Urine Creatinine Urine Total Protein Crossmatch 12/18/17 12/18/17 12/18/17 05:12 05:12 11:55 WBC 14.2 H RBC Hgb 9.8 L Hct 29.7 L MCV 81 L MCH 27 L MCHC RDW 18.8 H Plt Count Lymph % (Auto) 12.3 L Green % (Auto) 9.4 H Green # 1.3 H Seg Neutrophils % 75.5 H Seg Neuts % (Manual) Lymphocytes % (Manual) Monocytes % (Manual) Seg Neutrophils # 10.7 H Seg Neutrophils # Man Lymphocytes # (Manual) Monocytes # (Manual) D-Dimer Heparin Anti-Xa Level POC ABG pH POC ABG pCO2 POC ABG pO2 VBG pH Sodium Potassium Chloride Carbon Dioxide 19 L BUN 55 H Creatinine 6.0 H Glucose 112 H POC Glucose 126 H Calcium Phosphorus Iron Total Creatine Kinase CK-MB (CK-2) Troponin T NT-Pro-B Natriuret Pep Albumin Triglycerides HDL Cholesterol Urine WBC (Auto) Urine Creatinine Urine Total Protein Crossmatch 12/18/17 12/19/17 12/19/17 21:34 05:01 05:10 WBC 11.9 H RBC Hgb 9.5 L Hct 30.1 L MCV 82 L MCH 26 L MCHC RDW 19.0 H Plt Count Lymph % (Auto) Green % (Auto) Green # Seg Neutrophils % Seg Neuts % (Manual) Lymphocytes % (Manual) Monocytes % (Manual) Seg Neutrophils # Seg Neutrophils # Man Lymphocytes # (Manual) Monocytes # (Manual) D-Dimer Heparin Anti-Xa Level POC ABG pH POC ABG pCO2 29.8 L POC ABG pO2 116 H VBG pH Sodium Potassium Chloride Carbon Dioxide BUN Creatinine Glucose POC Glucose 120 H Calcium Phosphorus Iron Total Creatine Kinase CK-MB (CK-2) Troponin T NT-Pro-B Natriuret Pep Albumin Triglycerides HDL Cholesterol Urine WBC (Auto) Urine Creatinine Urine Total Protein Crossmatch 12/19/17 12/19/17 12/19/17 05:10 05:10 07:15 WBC RBC Hgb Hct MCV MCH MCHC RDW Plt Count Lymph % (Auto) Green % (Auto) Green # Seg Neutrophils % Seg Neuts % (Manual) Lymphocytes % (Manual) Monocytes % (Manual) Seg Neutrophils # Seg Neutrophils # Man Lymphocytes # (Manual) Monocytes # (Manual) D-Dimer Heparin Anti-Xa Level POC ABG pH POC ABG pCO2 POC ABG pO2 VBG pH Sodium Potassium Chloride 95.9 L Carbon Dioxide 18 L BUN 90 H Creatinine 9.2 H D Glucose 140 H POC Glucose 130 H Calcium Phosphorus 11.90 H Iron Total Creatine Kinase CK-MB (CK-2) Troponin T NT-Pro-B Natriuret Pep Albumin Triglycerides 440 H HDL Cholesterol Urine WBC (Auto) Urine Creatinine Urine Total Protein Crossmatch 12/19/17 12/19/17 12/19/17 11:52 15:36 19:17 WBC RBC Hgb 10.3 L Hct 31.1 L MCV MCH MCHC RDW Plt Count Lymph % (Auto) Green % (Auto) Green # Seg Neutrophils % Seg Neuts % (Manual) Lymphocytes % (Manual) Monocytes % (Manual) Seg Neutrophils # Seg Neutrophils # Man Lymphocytes # (Manual) Monocytes # (Manual) D-Dimer Heparin Anti-Xa Level POC ABG pH POC ABG pCO2 POC ABG pO2 VBG pH Sodium Potassium Chloride Carbon Dioxide BUN Creatinine Glucose POC Glucose 148 H 127 H Calcium Phosphorus Iron Total Creatine Kinase CK-MB (CK-2) Troponin T NT-Pro-B Natriuret Pep Albumin Triglycerides HDL Cholesterol Urine WBC (Auto) Urine Creatinine Urine Total Protein Crossmatch 12/19/17 12/19/17 12/20/17 19:17 23:01 02:07 WBC RBC Hgb Hct MCV MCH MCHC RDW Plt Count Lymph % (Auto) Green % (Auto) Green # Seg Neutrophils % Seg Neuts % (Manual) Lymphocytes % (Manual) Monocytes % (Manual) Seg Neutrophils # Seg Neutrophils # Man Lymphocytes # (Manual) Monocytes # (Manual) D-Dimer Heparin Anti-Xa Level < 0.10 L 0.77 H POC ABG pH POC ABG pCO2 POC ABG pO2 VBG pH Sodium Potassium Chloride Carbon Dioxide BUN Creatinine Glucose POC Glucose 151 H Calcium Phosphorus Iron Total Creatine Kinase CK-MB (CK-2) Troponin T NT-Pro-B Natriuret Pep Albumin Triglycerides HDL Cholesterol Urine WBC (Auto) Urine Creatinine Urine Total Protein Crossmatch 12/20/17 12/20/17 12/20/17 02:09 04:03 07:52 WBC RBC Hgb Hct MCV MCH MCHC RDW Plt Count Lymph % (Auto) Green % (Auto) Green # Seg Neutrophils % Seg Neuts % (Manual) Lymphocytes % (Manual) Monocytes % (Manual) Seg Neutrophils # Seg Neutrophils # Man Lymphocytes # (Manual) Monocytes # (Manual) D-Dimer Heparin Anti-Xa Level POC ABG pH 7.308 L POC ABG pCO2 31.1 L POC ABG pO2 133 H VBG pH Sodium 147 H Potassium Chloride 96.9 L Carbon Dioxide 14 L BUN 116 H Creatinine 11.6 H Glucose 109 H POC Glucose 131 H Calcium Phosphorus Iron Total Creatine Kinase CK-MB (CK-2) Troponin T NT-Pro-B Natriuret Pep Albumin Triglycerides HDL Cholesterol Urine WBC (Auto) Urine Creatinine Urine Total Protein Crossmatch 12/20/17 12/20/17 12/20/17 11:11 11:43 16:08 WBC RBC Hgb Hct MCV MCH MCHC RDW Plt Count Lymph % (Auto) Green % (Auto) Green # Seg Neutrophils % Seg Neuts % (Manual) Lymphocytes % (Manual) Monocytes % (Manual) Seg Neutrophils # Seg Neutrophils # Man Lymphocytes # (Manual) Monocytes # (Manual) D-Dimer Heparin Anti-Xa Level POC ABG pH 7.266 L POC ABG pCO2 32.6 L POC ABG pO2 VBG pH Sodium Potassium Chloride Carbon Dioxide BUN Creatinine Glucose POC Glucose 143 H 159 H Calcium Phosphorus Iron Total Creatine Kinase CK-MB (CK-2) Troponin T NT-Pro-B Natriuret Pep Albumin Triglycerides HDL Cholesterol Urine WBC (Auto) Urine Creatinine Urine Total Protein Crossmatch 12/21/17 12/21/17 12/21/17 03:44 04:45 04:45 WBC 13.7 H RBC Hgb 10.8 L Hct 33.8 L MCV 81 L MCH 26 L MCHC RDW 19.4 H Plt Count Lymph % (Auto) Green % (Auto) Green # Seg Neutrophils % Seg Neuts % (Manual) 84.0 H Lymphocytes % (Manual) 6.0 L Monocytes % (Manual) 9.0 H Seg Neutrophils # Seg Neutrophils # Man 11.5 H Lymphocytes # (Manual) 0.8 L Monocytes # (Manual) 1.2 H D-Dimer Heparin Anti-Xa Level POC ABG pH POC ABG pCO2 27.6 L POC ABG pO2 VBG pH Sodium Potassium Chloride 93.9 L Carbon Dioxide 19 L BUN 82 H Creatinine 8.2 H Glucose 113 H POC Glucose Calcium Phosphorus Iron Total Creatine Kinase CK-MB (CK-2) Troponin T NT-Pro-B Natriuret Pep Albumin Triglycerides HDL Cholesterol Urine WBC (Auto) Urine Creatinine Urine Total Protein Crossmatch 12/21/17 12/21/17 12/21/17 08:08 09:35 12:11 WBC RBC Hgb Hct MCV MCH MCHC RDW Plt Count Lymph % (Auto) Green % (Auto) Green # Seg Neutrophils % Seg Neuts % (Manual) Lymphocytes % (Manual) Monocytes % (Manual) Seg Neutrophils # Seg Neutrophils # Man Lymphocytes # (Manual) Monocytes # (Manual) D-Dimer Heparin Anti-Xa Level 0.80 H POC ABG pH POC ABG pCO2 POC ABG pO2 VBG pH Sodium Potassium Chloride Carbon Dioxide BUN Creatinine Glucose POC Glucose 123 H 139 H Calcium Phosphorus Iron Total Creatine Kinase CK-MB (CK-2) Troponin T NT-Pro-B Natriuret Pep Albumin Triglycerides HDL Cholesterol Urine WBC (Auto) Urine Creatinine Urine Total Protein Crossmatch 12/21/17 12/21/17 12/21/17 15:51 17:12 23:18 WBC RBC Hgb Hct MCV MCH MCHC RDW Plt Count Lymph % (Auto) Green % (Auto) Green # Seg Neutrophils % Seg Neuts % (Manual) Lymphocytes % (Manual) Monocytes % (Manual) Seg Neutrophils # Seg Neutrophils # Man Lymphocytes # (Manual) Monocytes # (Manual) D-Dimer Heparin Anti-Xa Level 1.17 H POC ABG pH POC ABG pCO2 POC ABG pO2 VBG pH Sodium Potassium Chloride Carbon Dioxide BUN Creatinine Glucose POC Glucose 169 H 115 H Calcium Phosphorus Iron Total Creatine Kinase CK-MB (CK-2) Troponin T NT-Pro-B Natriuret Pep Albumin Triglycerides HDL Cholesterol Urine WBC (Auto) Urine Creatinine Urine Total Protein Crossmatch 12/22/17 12/23/17 12/23/17 18:55 00:05 04:35 WBC 12.7 H RBC 3.64 L Hgb 9.8 L Hct 30.0 L MCV 83 L MCH 27 L MCHC RDW 18.9 H Plt Count Lymph % (Auto) 10.3 L Green % (Auto) 10.3 H Green # 1.3 H Seg Neutrophils % 77.5 H Seg Neuts % (Manual) Lymphocytes % (Manual) Monocytes % (Manual) Seg Neutrophils # 9.9 H Seg Neutrophils # Man Lymphocytes # (Manual) Monocytes # (Manual) D-Dimer Heparin Anti-Xa Level POC ABG pH POC ABG pCO2 POC ABG pO2 VBG pH Sodium Potassium Chloride Carbon Dioxide BUN Creatinine Glucose POC Glucose 120 H 108 H Calcium Phosphorus Iron Total Creatine Kinase CK-MB (CK-2) Troponin T NT-Pro-B Natriuret Pep Albumin Triglycerides HDL Cholesterol Urine WBC (Auto) Urine Creatinine Urine Total Protein Crossmatch 12/23/17 12/23/1718 04:35 04:35 06:27 WBC RBC Hgb Hct MCV MCH MCHC RDW Plt Count Lymph % (Auto) Green % (Auto) Green # Seg Neutrophils % Seg Neuts % (Manual) Lymphocytes % (Manual) Monocytes % (Manual) Seg Neutrophils # Seg Neutrophils # Man Lymphocytes # (Manual) Monocytes # (Manual) D-Dimer Heparin Anti-Xa Level 0.24 L POC ABG pH POC ABG pCO2 POC ABG pO2 VBG pH Sodium Potassium Chloride 88.9 L Carbon Dioxide 16 L BUN 107 H Creatinine 9.8 H Glucose 140 H POC Glucose 143 H Calcium Phosphorus Iron Total Creatine Kinase CK-MB (CK-2) Troponin T NT-Pro-B Natriuret Pep Albumin Triglycerides HDL Cholesterol Urine WBC (Auto) Urine Creatinine Urine Total Protein Crossmatch 12/23/17 12/24/17 12/24/17 11:55 00:00 04:40 WBC 13.7 H RBC Hgb 9.8 L Hct 30.4 L MCV 81 L MCH 26 L MCHC RDW 19.1 H Plt Count Lymph % (Auto) 10.7 L Green % (Auto) 12.2 H Green # 1.7 H Seg Neutrophils % 75.0 H Seg Neuts % (Manual) Lymphocytes % (Manual) Monocytes % (Manual) Seg Neutrophils # 10.3 H Seg Neutrophils # Man Lymphocytes # (Manual) Monocytes # (Manual) D-Dimer Heparin Anti-Xa Level POC ABG pH POC ABG pCO2 POC ABG pO2 VBG pH Sodium Potassium Chloride Carbon Dioxide BUN Creatinine Glucose POC Glucose 161 H 143 H Calcium Phosphorus Iron Total Creatine Kinase CK-MB (CK-2) Troponin T NT-Pro-B Natriuret Pep Albumin Triglycerides HDL Cholesterol Urine WBC (Auto) Urine Creatinine Urine Total Protein Crossmatch 12/24/17 12/24/17 04:40 08:16 WBC RBC Hgb Hct MCV MCH MCHC RDW Plt Count Lymph % (Auto) Green % (Auto) Green # Seg Neutrophils % Seg Neuts % (Manual) Lymphocytes % (Manual) Monocytes % (Manual) Seg Neutrophils # Seg Neutrophils # Man Lymphocytes # (Manual) Monocytes # (Manual) D-Dimer Heparin Anti-Xa Level POC ABG pH POC ABG pCO2 POC ABG pO2 VBG pH Sodium Potassium 3.5 L D Chloride 96.8 L Carbon Dioxide 21 L BUN 52 H Creatinine 6.0 H Glucose 131 H POC Glucose 120 H Calcium Phosphorus Iron Total Creatine Kinase CK-MB (CK-2) Troponin T NT-Pro-B Natriuret Pep Albumin Triglycerides HDL Cholesterol Urine WBC (Auto) Urine Creatinine Urine Total Protein Crossmatch Allied health notes reviewed: nursing
--- NOTE | 2017-12-24 10:39 | Progress Note ---
Assessment and Plan Acute respiratory failure extubated Acute on chronic renal failure s/p urgent dialysis Anemia s/p transfusion of PRBCs Acute right iliac DVT on IV heparin Acute systolic heart failure EF 40-45% by echo Systemic Hypertension Ileus GI planning EGD and colonoscopy once medically stable Recommendations: Continue IV heparin while closely monitoring H/H Change po coreg to IV metoprolol until patient is able gain to take po and absorb meds No further cardiac work-up is planned Subjective Date of service: 12/24/17 Principal diagnosis: Anemia Interval history: No cardiac events overnight RN states that patient has high NG residual and is likely not absorbing his po meds Objective Vital Signs Temp Pulse Pulse Pulse Resp Resp BP 12/24/17 09:47 97 H 147/69 12/24/17 09:15 103 H 22 139/79 12/24/17 09:00 99 H 15 147/69 12/24/17 08:57 99 H 16 12/24/17 08:50 12/24/17 08:45 106 H 18 139/79 12/24/17 08:44 107 H 16 12/24/17 08:31 102 H 31 H 139/79 12/24/17 08:15 99 H 18 139/79 12/24/17 08:00 98.3 F 96 H 15 139/79 12/24/17 07:45 103 H 16 145/88 12/24/17 07:31 96 H 14 145/88 12/24/17 07:15 98 H 21 145/88 12/24/17 07:01 102 H 19 145/88 12/24/17 06:45 102 H 18 141/76 12/24/17 06:31 100 H 15 141/76 12/24/17 06:15 99 H 15 141/76 12/24/17 06:01 106 H 18 135/93 12/24/17 05:45 105 H 18 140/69 12/24/17 05:30 108 H 17 154/87 12/24/17 05:15 106 H 18 150/88 12/24/17 05:01 114 H 21 140/69 12/24/17 04:45 112 H 21 157/79 12/24/17 04:30 105 H 17 154/78 12/24/17 04:15 105 H 16 158/82 12/24/17 04:00 97.6 F 108 H 86 21 174/87 12/24/17 03:45 107 H 16 174/87 18 03:31 109 H 18 158/82 12/24/17 03:15 113 H 20 192/101 12/24/17 03:00 110 H 20 189/95 12/24/17 02:45 109 H 21 149/79 18 02:31 109 H 21 149/79 18 02:15 101 H 15 149/79 12/24/17 02:01 104 H 16 144/72 12/24/17 01:45 107 H 19 175/78 12/24/17 01:30 108 H 20 168/91 12/24/17 01:15 111 H 17 180/99 12/24/17 01:01 107 H 17 190/75 12/24/17 00:45 109 H 20 168/104 12/24/17 00:31 110 H 21 149/88 12/24/17 00:15 114 H 22 163/88 12/24/17 00:00 98.4 F 110 H 86 20 145/88 12/23/17 23:45 109 H 19 179/67 18 23:31 113 H 17 179/67 12/23/17 23:15 126 H 24 146/95 12/23/17 23:01 120 H 21 146/95 12/23/17 22:45 106 H 26 H 155/92 18 22:30 102 H 16 155/92 12/23/17 22:15 104 H 19 143/89 12/23/17 22:00 99 H 18 142/87 12/23/17 21:45 106 H 17 163/89 12/23/17 21:30 105 H 17 152/84 12/23/17 21:15 106 H 16 153/93 12/23/17 21:00 104 H 15 152/83 12/23/17 20:49 105 H 15 153/86 12/23/17 20:45 98 H 15 153/86 12/23/17 20:30 100 H 14 141/86 18 20:16 100 H 18 12/23/17 20:15 99 H 15 140/89 12/23/17 20:06 104 H 18 12/23/17 20:00 97.6 F 104 H 86 20 152/90 12/23/17 19:45 104 H 16 152/90 12/23/17 19:31 107 H 17 159/92 12/23/17 19:15 107 H 22 161/106 12/23/17 19:00 103 H 16 152/93 12/23/17 18:45 109 H 18 158/89 12/23/17 18:30 106 H 18 171/93 12/23/17 18:15 106 H 18 162/98 12/23/17 18:00 107 H 16 163/94 12/23/17 17:45 110 H 17 159/95 12/23/17 17:30 105 H 16 159/96 12/23/17 17:15 112 H 17 147/82 12/23/17 17:00 115 H 16 148/88 12/23/17 16:45 110 H 15 144/86 12/23/17 16:30 112 H 13 144/86 12/23/17 16:15 112 H 15 144/96 12/23/17 16:00 98.9 F 110 H 86 20 158/99 12/23/17 15:45 108 H 17 149/92 12/23/17 15:39 97.9 F 106 H 16 149/89 12/23/17 15:31 106 H 78 13 18 149/89 12/23/17 15:25 75 18 12/23/17 15:15 110 H 16 123/93 12/23/17 15:00 110 H 16 127/90 12/23/17 14:55 109 H 138/93 12/23/17 14:45 109 H 16 138/93 12/23/17 14:30 103 H 16 140/93 12/23/17 14:15 107 H 17 139/84 12/23/17 14:00 109 H 15 132/89 12/23/17 13:45 105 H 15 138/91 12/23/17 13:30 108 H 16 127/85 12/23/17 13:15 109 H 15 117/84 12/23/17 13:01 118 H 15 112/71 12/23/17 13:00 110 H 112/71 12/23/17 12:45 105 H 15 122/84 12/23/17 12:30 106 H 15 132/75 12/23/17 12:15 102 H 14 133/78 12/23/17 12:00 97.9 F 90 86 20 144/85 12/23/17 11:45 89 15 151/80 12/23/17 11:30 97.9 F 89 12 144/82 12/23/17 11:15 92 H 14 147/83 12/23/17 11:08 93 H 145/80 12/23/17 11:00 90 79 13 18 145/80 12/23/17 10:50 89 12 12/23/17 10:45 91 H 14 143/80 Pulse Ox Pulse Ox 12/24/17 09:47 12/24/17 09:15 96 12/24/17 09:00 100 12/24/17 08:57 12/24/17 08:50 98 12/24/17 08:45 97 12/24/17 08:44 12/24/17 08:31 98 12/24/17 08:15 99 12/24/17 08:00 97 12/24/17 07:45 98 12/24/17 07:31 97 12/24/17 07:15 96 12/24/17 07:01 99 12/24/17 06:45 97 12/24/17 06:31 92 12/24/17 06:15 98 12/24/17 06:01 12/24/17 05:45 97 12/24/17 05:30 95 12/24/17 05:15 95 12/24/17 05:01 96 12/24/17 04:45 98 12/24/17 04:30 98 12/24/17 04:15 97 12/24/17 04:00 95 12/24/17 03:45 96 12/24/17 03:31 95 12/24/17 03:15 95 12/24/17 03:00 96 12/24/17 02:45 96 12/24/17 02:31 94 12/24/17 02:15 98 12/24/17 02:01 96 12/24/17 01:45 95 12/24/17 01:30 94 12/24/17 01:15 95 12/24/17 01:01 95 12/24/17 00:45 96 12/24/17 00:31 12/24/17 00:15 12/24/17 00:00 97 12/23/17 23:45 96 12/23/17 23:31 94 12/23/17 23:15 12/23/17 23:01 97 12/23/17 22:45 97 12/23/17 22:30 97 12/23/17 22:15 96 12/23/17 22:00 98 12/23/17 21:45 97 12/23/17 21:30 97 12/23/17 21:15 96 12/23/17 21:00 99 12/23/17 20:49 99 12/23/17 20:45 98 12/23/17 20:30 98 12/23/17 20:16 12/23/17 20:15 100 12/23/17 20:06 97 12/23/17 20:00 97 12/23/17 19:45 96 12/23/17 19:31 12/23/17 19:15 96 12/23/17 19:00 91 12/23/17 18:45 91 12/23/17 18:30 93 12/23/17 18:15 94 12/23/17 18:00 97 12/23/17 17:45 96 12/23/17 17:30 97 12/23/17 17:15 12/23/17 17:00 89 12/23/17 16:45 94 12/23/17 16:30 92 12/23/17 16:15 91 12/23/17 16:00 97 12/23/17 15:45 96 12/23/17 15:39 96 12/23/17 15:31 96 12/23/17 15:25 12/23/17 15:15 97 12/23/17 15:00 96 12/23/17 14:55 12/23/17 14:45 97 12/23/17 14:30 12/23/17 14:15 97 12/23/17 14:00 97 12/23/17 13:45 96 12/23/17 13:30 94 12/23/17 13:15 95 12/23/17 13:01 90 12/23/17 13:00 12/23/17 12:45 96 12/23/17 12:30 97 12/23/17 12:15 94 12/23/17 12:00 97 12/23/17 11:45 91 12/23/17 11:30 91 94 12/23/17 11:15 91 12/23/17 11:08 12/23/17 11:00 93 12/23/17 10:50 12/23/17 10:45 94 - Physical Examination General: No Apparent Distress HEENT: Positive: PERRL Neck: Positive: trachea midline Cardiac: Positive: Reg Rate and Rhythm Lungs: Positive: Normal Exam Neuro: Positive: Grossly Intact Abdomen: Positive: Unremarkable, Active Bowel Sounds, Distended Extremities: Absent: edema - Labs and Meds CBC 12/24/17 Range/Units 04:40 WBC 13.7 H (4.5-11.0) K/mm3 RBC 3.76 (3.65-5.03) M/mm3 Hgb 9.8 L (11.8-15.2) gm/dl Hct 30.4 L (35.5-45.6) % Plt Count 424 (140-440) K/mm3 Lymph # 1.5 (1.2-5.4) K/mm3 [place] # 1.7 H (0.0-0.8) K/mm3 Eos # 0.2 (0.0-0.4) K/mm3 Baso # 0.1 (0.0-0.1) K/mm3 Comprehensive Metabolic Panel 12/24/17 Range/Units 04:40 Sodium 139 (137-145) mmol/L Potassium 3.5 L D (3.6-5.0) mmol/L Chloride 96.8 L (98-107) mmol/L Carbon Dioxide 21 L (22-30) mmol/L BUN 52 H (9-20) mg/dL Creatinine 6.0 H (0.8-1.5) mg/dL Glucose 131 H (75-100) mg/dL Calcium 8.8 (8.4-10.2) mg/dL - Imaging and Cardiology EKG: report reviewed (Sinus Tachycardia) - Allied health notes Allied health notes reviewed: nursing
[2017-12-24] MEDS: NITRO-BID 2% TP SCH ×2 (14:00→15:25)
--- NOTE | 2017-12-24 14:19 | Gastroenterology Progress Note ---
Assessment and Plan 1. Anemia - H/H stable. will need eventual gi work-up, however given events/ mental status and current abdominal exam, will hold off on prep 2. Abdominal distention - ileus on prior imaging; had n/v earlier. will repeat KUB. NG in place Subjective Date of service: 12/24/17 Principal diagnosis: Anemia Interval history: pt seen and examined. pt with ams overnight receiving haldol. currently sedated. ng in place. one bm reported overnight. had n/v this morning with ng currently in place. Objective - Exam Narrative Exam: Gen: sedated, nad Hent: + NG tube CV: tachycardic, s1 and s2 Abd: + mod distention, hypoactive bs Lungs: ctab, mild labored respirations - Constitutional Vitals: Temp Pulse Resp BP Pulse Ox 98.5 F 97 H 14 145/83 93 12/24/17 11:52 12/24/17 11:15 12/24/17 11:15 12/24/17 11:15 12/24/17 11:15 - Labs CBC & Chem 7: 12/24/17 04:40 12/24/17 04:40 Labs: Laboratory Results - last 24 hr 12/23/17 12/24/17 12/24/17 13:39 00:00 04:40 WBC 13.7 H RBC 3.76 Hgb 9.8 L Hct 30.4 L MCV 81 L MCH 26 L MCHC 32 RDW 19.1 H Plt Count 424 Lymph % (Auto) 10.7 L [place] % (Auto) 12.2 H Eos % (Auto) 1.2 Baso % (Auto) 0.9 Lymph # 1.5 [place] # 1.7 H Eos # 0.2 Baso # 0.1 Seg Neutrophils % 75.0 H Seg Neutrophils # 10.3 H Heparin Anti-Xa Level 0.49 Sodium Potassium Chloride Carbon Dioxide Anion Gap BUN Creatinine Estimated GFR BUN/Creatinine Ratio Glucose POC Glucose 143 H Calcium 12/24/17 12/24/17 12/24/17 04:40 08:16 11:11 WBC RBC Hgb Hct MCV MCH MCHC RDW Plt Count Lymph % (Auto) [place] % (Auto) Eos % (Auto) Baso % (Auto) Lymph # [place] # Eos # Baso # Seg Neutrophils % Seg Neutrophils # Heparin Anti-Xa Level Sodium 139 Potassium 3.5 L D Chloride 96.8 L Carbon Dioxide 21 L Anion Gap 25 BUN 52 H Creatinine 6.0 H Estimated GFR 9 BUN/Creatinine Ratio 9 Glucose 131 H POC Glucose 120 H 120 H Calcium 8.8 12/24/17 12/24/17 12:50 13:33 WBC RBC Hgb Hct MCV MCH MCHC RDW Plt Count Lymph % (Auto) [place] % (Auto) Eos % (Auto) Baso % (Auto) Lymph # [place] # Eos # Baso # Seg Neutrophils % Seg Neutrophils # Heparin Anti-Xa Level 0.34 Sodium Potassium Chloride Carbon Dioxide Anion Gap BUN Creatinine Estimated GFR BUN/Creatinine Ratio Glucose POC Glucose 125 H Calcium
[2017-12-24] MEDS: LOPRESSOR IV SCH ×2 (15:24→20:59)
--- NOTE | 2017-12-24 17:10 | XRay Report ---
FINAL REPORT PROCEDURE: XR ABDOMEN 1V AP TECHNIQUE: AP views of the abdomen HISTORY: abdominal distention/DOBHOFF REPOSITIONING COMPARISON: No prior studies are available for comparison. FINDINGS: Small bowel loops are diffusely, up to 3.8 centimeters in caliber. Air is also seen within large bowel loops. Findings are concerning for ileus or early or partial obstruction. Nasogastric tube tip is at the gastroesophageal junction with the side hole in the distal esophagus. Recommend advancement by at least 6 centimeters. There is a catheter in the right lower abdomen. IMPRESSION: Findings are compatible with ileus pattern or early or partial obstruction. Nasogastric tube side-hole is in the distal esophagus. Recommend advancement by at least 6 centimeters
[2017-12-24] MEDS: D5NS 1,000 ML IV SCH (23:03)
[2017-12-25] MEDS: HumaLOG SUB-Q SCH ×4 (00:30→13:20)
[2017-12-25] MEDS: PREVACID SOLUTAB FEEDTUBE SCH ×2 (03:28→09:30)
[2017-12-25] MEDS: SODIUM CHLORIDE FLUSH SYRINGE 10 ML IV SCH ×2 (03:28→13:19)
[2017-12-25 04:40] LABS: Basophils # (Auto) 0.1 K/mm3 (0.0-0.1); Basophils % (Auto) 0.7 % (0.0-1.8); Eosinophils # (Auto) 0.1 K/mm3 (0.0-0.4); Eosinophils % (Auto) 0.9 % (0.0-4.3); Hematocrit 31.2 % (35.5-45.6); Hemoglobin 9.8 gm/dl (11.8-15.2); Lymphocytes # (Auto) 1.3 K/mm3 (1.2-5.4); Lymphocytes % (Auto) 10.5 % (13.4-35.0); Mean Corpuscular HGB Conc 31 % (32-34); Mean Corpuscular Volume 82 fl (84-94); Monocytes # (Auto) 1.5 K/mm3 (0.0-0.8); Monocytes % (Auto) 12.1 % (0.0-7.3); Platelet Count 395 K/mm3 (140-440); Red Blood Count 3.79 M/mm3 (3.65-5.03); Red Cell Distribution Width 19.3 % (13.2-15.2)
[2017-12-25 04:50] LABS: Mean Corpuscular Hemoglobin 26 pg (28-32)
[2017-12-25 05:03] LABS: Calcium 8.7 mg/dL (8.4-10.2)
[2017-12-25] MEDS: HEPARIN/ 0.45% NACL-25,000 UNIT/500 ML 25,000 UNIT/500 ML BAG IV SCH (05:26)
[2017-12-25] MEDS: LOPRESSOR IV SCH ×3 (05:31→22:15)
--- NOTE | 2017-12-25 06:15 | Progress Note ---
Assessment and Plan - Patient Problems (1) BALDO (acute kidney injury) Current Visit: Yes Status: Acute Plan to address problem: Likely in the setting of acure cardiorenal syndrome. No signs of renal recovery at this time and patient remains on dialysis, on TTS schedule He has had permcath placed and awaiting outpatient dialysis to be set up. Will need femoral vasc cath removed. Next dialysis Monday, (2) Acute exacerbation of CHF (congestive heart failure) Current Visit: Yes Status: Acute Qualifiers: Heart failure type: combined systolic and diastolic Qualified Code(s): I50.43 - Acute on chronic combined systolic (congestive) and diastolic ( congestive) heart failure Plan to address problem: Volume status improved with dialysis. 1L UF removed with last HD session on Monday. (3) Acidosis, metabolic Current Visit: Yes Status: Acute Plan to address problem: Improved with dialysis. Will continue to monitor. (4) Hyperkalemia Current Visit: Yes Status: Acute Plan to address problem: Improved with clearance provided with dialysis. He is NPO at present. He should be on a low K renal diet when not NPO. Will continue to monitor. (5) Respiratory failure Current Visit: Yes Status: Acute Qualifiers: Chronicity: acute Respiratory failure complication: hypoxia Qualified Code(s): J96.01 - Acute respiratory failure with hypoxia Plan to address problem: Tolerating well with adequate O2 sats on O2 via NC. Further management per respiratory team. (6) Severe anemia Current Visit: Yes Status: Chronic Plan to address problem: improved with transfusions. Will closely monitor. Per primary notes, possible plan for EGD/colonoscopy when stable. Will follow up. Subjective Date of service: 12/25/17 Principal diagnosis: Anemia Interval history: Events overnight noted. Labs noted. Last HD session on Monday. Objective - Vital Signs Vital signs: Vital Signs - 12hr 12/24/17 12/24/17 12/24/17 18:15 18:30 18:45 Temperature Pulse Rate 97 H 99 H 95 H Pulse Rate [ Anterior Bilateral Throughout] Pulse Rate [ From Monitor] Respiratory 13 13 12 Rate Respiratory Rate [Anterior Bilateral Throughout] Blood Pressure 141/81 140/77 140/77 O2 Sat by Pulse 99 98 97 Oximetry 12/24/17 12/24/17 12/24/17 19:00 19:15 19:30 Temperature Pulse Rate 102 H 101 H 102 H Pulse Rate [ Anterior Bilateral Throughout] Pulse Rate [ From Monitor] Respiratory 17 18 14 Rate Respiratory Rate [Anterior Bilateral Throughout] Blood Pressure 140/77 135/83 146/85 O2 Sat by Pulse 96 97 95 Oximetry 12/24/17 12/24/17 12/24/17 19:45 20:00 20:15 Temperature 97.4 F L Pulse Rate 96 H 97 H 102 H Pulse Rate [ 87 Anterior Bilateral Throughout] Pulse Rate [ 87 From Monitor] Respiratory 13 20 14 Rate Respiratory 20 Rate [Anterior Bilateral Throughout] Blood Pressure 146/85 132/88 132/88 O2 Sat by Pulse 96 98 94 Oximetry 12/24/17 12/24/17 12/24/17 20:19 20:29 20:30 Temperature Pulse Rate 98 H Pulse Rate [ 103 H 97 H Anterior Bilateral Throughout] Pulse Rate [ From Monitor] Respiratory 14 Rate Respiratory 18 18 Rate [Anterior Bilateral Throughout] Blood Pressure 138/84 O2 Sat by Pulse 97 99 Oximetry 12/24/17 12/24/17 12/24/17 20:35 20:45 20:47 Temperature Pulse Rate 95 H 100 H 98 H Pulse Rate [ Anterior Bilateral Throughout] Pulse Rate [ From Monitor] Respiratory 14 14 14 Rate Respiratory Rate [Anterior Bilateral Throughout] Blood Pressure 138/84 138/84 138/84 O2 Sat by Pulse 98 95 94 Oximetry 12/24/17 12/24/17 12/24/17 20:59 21:00 21:15 Temperature Pulse Rate 87 101 H 100 H Pulse Rate [ Anterior Bilateral Throughout] Pulse Rate [ From Monitor] Respiratory 12 10 L Rate Respiratory Rate [Anterior Bilateral Throughout] Blood Pressure 128/76 136/82 136/82 O2 Sat by Pulse 95 96 Oximetry 12/24/17 12/24/17 12/24/17 21:30 21:45 22:00 Temperature Pulse Rate 101 H 98 H 98 H Pulse Rate [ Anterior Bilateral Throughout] Pulse Rate [ From Monitor] Respiratory 12 14 11 L Rate Respiratory Rate [Anterior Bilateral Throughout] Blood Pressure 138/77 138/77 140/80 O2 Sat by Pulse 97 97 97 Oximetry 12/24/17 12/24/17 12/24/17 22:15 22:30 22:45 Temperature Pulse Rate 102 H 105 H 105 H Pulse Rate [ Anterior Bilateral Throughout] Pulse Rate [ From Monitor] Respiratory 14 15 13 Rate Respiratory Rate [Anterior Bilateral Throughout] Blood Pressure 140/80 134/93 134/93 O2 Sat by Pulse 94 97 97 Oximetry 12/24/17 12/24/17 12/24/17 23:00 23:15 23:30 Temperature Pulse Rate 103 H 105 H 103 H Pulse Rate [ Anterior Bilateral Throughout] Pulse Rate [ From Monitor] Respiratory 13 15 14 Rate Respiratory Rate [Anterior Bilateral Throughout] Blood Pressure 140/95 140/95 152/93 O2 Sat by Pulse 98 99 98 Oximetry 12/24/17 12/25/17 12/25/17 23:45 00:00 00:15 Temperature 97.8 F Pulse Rate 101 H 101 H 103 H Pulse Rate [ Anterior Bilateral Throughout] Pulse Rate [ 89 From Monitor] Respiratory 13 12 15 Rate Respiratory Rate [Anterior Bilateral Throughout] Blood Pressure 152/93 135/95 140/95 O2 Sat by Pulse 98 97 99 Oximetry 12/25/17 12/25/17 12/25/17 00:30 00:45 01:00 Temperature Pulse Rate 105 H 107 H 105 H Pulse Rate [ Anterior Bilateral Throughout] Pulse Rate [ From Monitor] Respiratory 17 15 16 Rate Respiratory Rate [Anterior Bilateral Throughout] Blood Pressure 138/87 152/93 138/87 O2 Sat by Pulse 94 97 95 Oximetry 12/25/17 12/25/17 12/25/17 01:15 01:31 01:45 Temperature Pulse Rate 108 H 110 H 110 H Pulse Rate [ Anterior Bilateral Throughout] Pulse Rate [ From Monitor] Respiratory 17 23 16 Rate Respiratory Rate [Anterior Bilateral Throughout] Blood Pressure 138/87 138/87 147/88 O2 Sat by Pulse 95 97 98 Oximetry 12/25/17 12/25/17 12/25/17 02:00 02:15 02:31 Temperature Pulse Rate 103 H 105 H 110 H Pulse Rate [ Anterior Bilateral Throughout] Pulse Rate [ From Monitor] Respiratory 25 H 13 16 Rate Respiratory Rate [Anterior Bilateral Throughout] Blood Pressure 138/91 147/88 147/88 O2 Sat by Pulse 95 97 96 Oximetry 12/25/17 12/25/17 12/25/17 02:45 03:00 03:15 Temperature Pulse Rate 106 H 105 H 102 H Pulse Rate [ Anterior Bilateral Throughout] Pulse Rate [ From Monitor] Respiratory 14 13 14 Rate Respiratory Rate [Anterior Bilateral Throughout] Blood Pressure 138/91 138/91 134/88 O2 Sat by Pulse 96 90 91 Oximetry 12/25/17 12/25/17 12/25/17 03:31 03:45 04:00 Temperature 97.3 F L Pulse Rate 109 H 108 H 106 H Pulse Rate [ Anterior Bilateral Throughout] Pulse Rate [ 92 H From Monitor] Respiratory 15 12 15 Rate Respiratory Rate [Anterior Bilateral Throughout] Blood Pressure 134/88 134/88 129/90 O2 Sat by Pulse 98 95 97 Oximetry 12/25/17 12/25/17 12/25/17 04:15 05:00 05:31 Temperature Pulse Rate 106 H 106 H 89 Pulse Rate [ Anterior Bilateral Throughout] Pulse Rate [ From Monitor] Respiratory 14 13 Rate Respiratory Rate [Anterior Bilateral Throughout] Blood Pressure 134/88 143/95 O2 Sat by Pulse 97 97 Oximetry 12/25/17 06:00 Temperature Pulse Rate 107 H Pulse Rate [ Anterior Bilateral Throughout] Pulse Rate [ From Monitor] Respiratory 23 Rate Respiratory Rate [Anterior Bilateral Throughout] Blood Pressure 146/94 O2 Sat by Pulse 100 Oximetry - General Appearance General appearance: well-developed, well-nourished, appears stated age EENT: ATNC Neck: no JVD, no thyromegaly, supple Respiratory: Present: Clear to Ascultation Cardiology: regular, S1S2 Gastrointestinal: normal Integumentary: no rash, warm and dry Neurologic: no focal deficit Musculoskeletal: other (-edema) Psychiatric: mood/affect appropriate, cooperative - Lab 12/25/17 04:29 12/25/17 04:29 Most recent lab results Calcium 8.7 mg/dL (8.4-10.2) 12/25/17 04:29 Phosphorus 11.90 mg/dL (2.5-4.5) H 12/19/17 05:10 Urine Creatinine 81.7 mg/dL (0.1-20.0) H 12/16/17 12:05 Urine Sodium 62 mmol/L 12/16/17 12:05 Urine Total Protein 493 mg/dL (5-11.8) H 12/16/17 12:05 - Allied health notes Allied health notes reviewed: nursing
[2017-12-25] MEDS: DUONEB *Not for PRN Use IH SCH (07:26)
--- NOTE | 2017-12-25 08:12 | XRay Report ---
AP ABDOMEN: HISTORY: Small bowel obstruction. The nasogastric tube has been advanced and now terminates in the distal stomach or just within the duodenal bulb. No significant change is demonstrated in multiple dilated small bowel loops throughout the abdomen. There appears to be normal gas and stool in the colon. No large free air is identified on supine view. Right femoral catheter is unchanged. IMPRESSION: No significant change in the partial small bowel obstruction pattern since yesterday's exam.
--- NOTE | 2017-12-25 08:41 | Progress Note ---
Assessment and Plan Paralytic ilius vs Partial SBO - seen on abdominal xry Since 12/21/17 - resumed diet following NG suction but developed N/V last night - hold TF now, repeat abdominal xry in the am - if symptom persisted then will consult surgery Right LE DVT -cont on heparin drip - monitor h and h Acute respiratory failure with hypoxia -likely due to pulmonary edema from renal failure - required intubation with MV - Off steroids - ABG improved - pulmonology following - s/p extubation 12/21/17 - cont nebs and supplemental O2 Sepsis likely from PNA, resolved -treated with IV abx, -blood cultures negative so far Bilateral pneumonia -treated with abx -blood and sputum culture neg BALDO 2/2 acute on chronic cardio renal syndrome, ischemic ATN in the setting of severe anemia and sepsis -H/O CKD suspected -on HD since admission -Neprology following - s/p perm cath placed Hyperkalemia, now hypokalemia -will monitor level and replete as needed Elevated d-dimer -VQ scan pending, on heparin drip now Severe anemia, probably sec to CKD/ESRD -s/p blood transfusion with 4 units of PRBC -s/p CT abdomen and pelvis to assess for acute bleed, but no active source per GI -stable H&H post transfusion Acute exacerbation of CHF (congestive heart failure), suspected -2d ECHO report showed EF 40-45% -cont volume removal by increased Ultrafiltration Elevated troponin probably secondary to demand ischemia -Cardiology following HTN -Coreg and PRN hydralazine started -monitor and adjust med as needed DVT prophylaxis on Heparin and GI prophylaxis on Protonix Disposition: Patient remains in critical condition, continue current management Brief history: This is a 67 yo M with unknown past medical history, who was brought in to ER by EMS for progressive shortness of breath, associated with productive cough. As per EMS reports, Pt was placed on 100% nonrebreather and brought to the ER. CXR showed evidence of cardiomegaly and pulmonary edema, and since pt developed worsening respiratory failure with hypercapnia/hypoxia pt required intubation. Labs showed elevated WBC > 17, severe anemia with Hb as low as 4.9, elevated BUN/Cr at 76/7.1 mg/dl along with hyperkalemia and metabolic acidosis. He was transfused and vascath placed for HD per renal. Hospitalist Physical exam: GENERAL: elderly male lying on bed, drowsy HEENT: Normocephalic. Atraumatic. No conjunctival congestion or icterus. Patient has moist mucous membranes. NECK: Supple. Trachea midline. CHEST/LUNGS: Clear to auscultated bilaterally, HEART/CARDIOVASCULAR: Regular in rate and rhythm. S1 and S2 positive. ABDOMEN: Abdomen is remained distended, nontender. Patient has normal bowel sounds. SKIN: There is no rash. Warm and dry. NEURO: no focal deficit MUSCULOSKELETAL: No joint effusion or tenderness. EXTRIMITY: No edema, no cyanosis or clubbing. PSYCH: restraint Subjective Date of service: 12/24/17 Principal diagnosis: Anemia Interval history: Patient seen and examined. Medical records and medication list reviewed. had N/v last night and was agitated given haldol and continued restraint Objective - Constitutional Vitals: Vital Signs - 12hr 12/24/17 12/24/17 12/24/17 20:45 20:47 20:59 Temperature Pulse Rate 100 H 98 H 87 Pulse Rate [ Anterior Bilateral Throughout] Pulse Rate [ From Monitor] Respiratory 14 14 Rate Respiratory Rate [Anterior Bilateral Throughout] Blood Pressure 138/84 138/84 128/76 O2 Sat by Pulse 95 94 Oximetry 12/24/17 12/24/17 12/24/17 21:00 21:15 21:30 Temperature Pulse Rate 101 H 100 H 101 H Pulse Rate [ Anterior Bilateral Throughout] Pulse Rate [ From Monitor] Respiratory 12 10 L 12 Rate Respiratory Rate [Anterior Bilateral Throughout] Blood Pressure 136/82 136/82 138/77 O2 Sat by Pulse 95 96 97 Oximetry 12/24/17 12/24/17 12/24/17 21:45 22:00 22:15 Temperature Pulse Rate 98 H 98 H 102 H Pulse Rate [ Anterior Bilateral Throughout] Pulse Rate [ From Monitor] Respiratory 14 11 L 14 Rate Respiratory Rate [Anterior Bilateral Throughout] Blood Pressure 138/77 140/80 140/80 O2 Sat by Pulse 97 97 94 Oximetry 12/24/17 12/24/17 12/24/17 22:30 22:45 23:00 Temperature Pulse Rate 105 H 105 H 103 H Pulse Rate [ Anterior Bilateral Throughout] Pulse Rate [ From Monitor] Respiratory 15 13 13 Rate Respiratory Rate [Anterior Bilateral Throughout] Blood Pressure 134/93 134/93 140/95 O2 Sat by Pulse 97 97 98 Oximetry 12/24/17 12/24/1712/24/18 23:15 23:30 23:45 Temperature Pulse Rate 105 H 103 H 101 H Pulse Rate [ Anterior Bilateral Throughout] Pulse Rate [ From Monitor] Respiratory 15 14 13 Rate Respiratory Rate [Anterior Bilateral Throughout] Blood Pressure 140/95 152/93 152/93 O2 Sat by Pulse 99 98 98 Oximetry 12/25/17 12/25/17 12/25/17 00:00 00:15 00:30 Temperature 97.8 F Pulse Rate 101 H 103 H 105 H Pulse Rate [ Anterior Bilateral Throughout] Pulse Rate [ 89 From Monitor] Respiratory 12 15 17 Rate Respiratory Rate [Anterior Bilateral Throughout] Blood Pressure 135/95 140/95 138/87 O2 Sat by Pulse 97 99 94 Oximetry 12/25/17 12/25/17 12/25/17 00:45 01:00 01:15 Temperature Pulse Rate 107 H 105 H 108 H Pulse Rate [ Anterior Bilateral Throughout] Pulse Rate [ From Monitor] Respiratory 15 16 17 Rate Respiratory Rate [Anterior Bilateral Throughout] Blood Pressure 152/93 138/87 138/87 O2 Sat by Pulse 97 95 95 Oximetry 12/25/17 12/25/17 12/25/17 01:31 01:45 02:00 Temperature Pulse Rate 110 H 110 H 103 H Pulse Rate [ Anterior Bilateral Throughout] Pulse Rate [ From Monitor] Respiratory 23 16 25 H Rate Respiratory Rate [Anterior Bilateral Throughout] Blood Pressure 138/87 147/88 138/91 O2 Sat by Pulse 97 98 95 Oximetry 12/25/17 12/25/17 12/25/17 02:15 02:31 02:45 Temperature Pulse Rate 105 H 110 H 106 H Pulse Rate [ Anterior Bilateral Throughout] Pulse Rate [ From Monitor] Respiratory 13 16 14 Rate Respiratory Rate [Anterior Bilateral Throughout] Blood Pressure 147/88 147/88 138/91 O2 Sat by Pulse 97 96 96 Oximetry 12/25/17 12/25/17 12/25/17 03:00 03:15 03:31 Temperature Pulse Rate 105 H 102 H 109 H Pulse Rate [ Anterior Bilateral Throughout] Pulse Rate [ From Monitor] Respiratory 13 14 15 Rate Respiratory Rate [Anterior Bilateral Throughout] Blood Pressure 138/91 134/88 134/88 O2 Sat by Pulse 90 91 98 Oximetry 12/25/17 12/25/17 12/25/17 03:45 04:00 04:15 Temperature 97.3 F L Pulse Rate 108 H 106 H 106 H Pulse Rate [ Anterior Bilateral Throughout] Pulse Rate [ 92 H From Monitor] Respiratory 12 15 14 Rate Respiratory Rate [Anterior Bilateral Throughout] Blood Pressure 134/88 129/90 134/88 O2 Sat by Pulse 95 97 97 Oximetry 12/25/17 12/25/17 12/25/17 05:00 05:31 06:00 Temperature Pulse Rate 106 H 89 107 H Pulse Rate [ Anterior Bilateral Throughout] Pulse Rate [ From Monitor] Respiratory 13 23 Rate Respiratory Rate [Anterior Bilateral Throughout] Blood Pressure 143/95 146/94 O2 Sat by Pulse 97 100 Oximetry 12/25/17 12/25/17 07:27 07:50 Temperature Pulse Rate Pulse Rate [ 107 H 101 H Anterior Bilateral Throughout] Pulse Rate [ From Monitor] Respiratory Rate Respiratory 18 18 Rate [Anterior Bilateral Throughout] Blood Pressure O2 Sat by Pulse Oximetry - Labs CBC & Chem 7: 12/25/17 04:29 12/25/17 04:29 Labs: Abnormal lab results 12/24/17 12/24/17 12/24/17 Range/Units 11:11 13:33 16:07 WBC (4.5-11.0) K/mm3 Hgb (11.8-15.2) gm/dl Hct (35.5-45.6) % MCV (84-94) fl MCH (28-32) pg MCHC (32-34) % RDW (13.2-15.2) % Lymph % (Auto) (13.4-35.0) % [place] % (Auto) (0.0-7.3) % [place] # (0.0-0.8) K/mm3 Seg Neutrophils % (40.0-70.0) % Seg Neutrophils # (1.8-7.7) K/mm3 Chloride (98-107) mmol/L Carbon Dioxide (22-30) mmol/L BUN (9-20) mg/dL Creatinine (0.8-1.5) mg/dL Glucose (75-100) mg/dL POC Glucose 120 H 125 H 122 H (70-105) 12/25/17 12/25/17 12/25/17 Range/Units 00:45 04:29 04:29 WBC 12.2 H (4.5-11.0) K/mm3 Hgb 9.8 L (11.8-15.2) gm/dl Hct 31.2 L (35.5-45.6) % MCV 82 L (84-94) fl MCH 26 L (28-32) pg MCHC 31 L (32-34) % RDW 19.3 H (13.2-15.2) % Lymph % (Auto) 10.5 L (13.4-35.0) % [place] % (Auto) 12.1 H (0.0-7.3) % [place] # 1.5 H (0.0-0.8) K/mm3 Seg Neutrophils % 75.8 H (40.0-70.0) % Seg Neutrophils # 9.3 H (1.8-7.7) K/mm3 Chloride 96.1 L (98-107) mmol/L Carbon Dioxide 19 L (22-30) mmol/L BUN 75 H (9-20) mg/dL Creatinine 8.5 H (0.8-1.5) mg/dL Glucose 143 H (75-100) mg/dL POC Glucose 155 H (70-105)
[2017-12-25] MEDS: NITRO-BID 2% TP SCH ×2 (09:07→13:20)
--- NOTE | 2017-12-25 10:20 | Gastroenterology Progress Note ---
<EDUARD RODRIGUEZ - Last Filed: 12/25/17 10:20> Assessment and Plan 1.iron deficiency anemia -H/H stable -no active signs of bleeding (on heparin drip) -will need eventual GI workup once medically stable and able to tolerate colon prep (given current abdominal exam will hold for now) 2.abdominal distention -KUB shows ileus vs partial small bowel obstruction- no improvement this am -will order SBFT for further evaluation -clinically, patient denies abd pain or N/V. BM x 1 this am per nursing -continue NG tube to LIS -limit narcotics -encourage OOB -continue supportive care -will follow Subjective Date of service: 12/25/17 Principal diagnosis: Anemia Interval history: No acute distress. Abdomen remains distended. NG tube to LIS. No active signs of bleeding. Denies abd pain or N/V. Objective - Constitutional Vitals: Temp Pulse Resp BP Pulse Ox 98.4 F 103 H 16 136/79 94 12/25/17 08:00 12/25/17 09:00 12/25/17 09:00 12/25/17 09:00 12/25/17 09:00 General appearance: no acute distress - Respiratory Respiratory: bilateral: CTA (anterior) - Cardiovascular Rhythm: other (tachycardia) - Gastrointestinal General gastrointestinal: Present: soft, distended, normal bowel sounds - Labs CBC & Chem 7: 12/25/17 04:29 12/25/17 04:29 Labs: Laboratory Results - last 24 hr 12/24/17 12/24/17 12/24/17 11:11 12:50 13:33 WBC RBC Hgb Hct MCV MCH MCHC RDW Plt Count Lymph % (Auto) [place] % (Auto) Eos % (Auto) Baso % (Auto) Lymph # [place] # Eos # Baso # Seg Neutrophils % Seg Neutrophils # Heparin Anti-Xa Level 0.34 Sodium Potassium Chloride Carbon Dioxide Anion Gap BUN Creatinine Estimated GFR BUN/Creatinine Ratio Glucose POC Glucose 120 H 125 H Calcium 12/24/17 12/25/17 12/25/17 16:07 00:45 04:29 WBC 12.2 H RBC 3.79 Hgb 9.8 L Hct 31.2 L MCV 82 L MCH 26 L MCHC 31 L RDW 19.3 H Plt Count 395 Lymph % (Auto) 10.5 L [place] % (Auto) 12.1 H Eos % (Auto) 0.9 Baso % (Auto) 0.7 Lymph # 1.3 [place] # 1.5 H Eos # 0.1 Baso # 0.1 Seg Neutrophils % 75.8 H Seg Neutrophils # 9.3 H Heparin Anti-Xa Level Sodium Potassium Chloride Carbon Dioxide Anion Gap BUN Creatinine Estimated GFR BUN/Creatinine Ratio Glucose POC Glucose 122 H 155 H Calcium 12/25/17 04:29 WBC RBC Hgb Hct MCV MCH MCHC RDW Plt Count Lymph % (Auto) [place] % (Auto) Eos % (Auto) Baso % (Auto) Lymph # [place] # Eos # Baso # Seg Neutrophils % Seg Neutrophils # Heparin Anti-Xa Level Sodium 141 Potassium 3.9 Chloride 96.1 L Carbon Dioxide 19 L Anion Gap 30 BUN 75 H Creatinine 8.5 H Estimated GFR 6 BUN/Creatinine Ratio 9 Glucose 143 H POC Glucose Calcium 8.7 <LYSSA LEARY - Last Filed: 12/25/17 15:03> Assessment and Plan Pt seen and examined. Agree with note above. Abdomen still distended. Will obtain UGI with SBFT to rule out SB obstruction or other path. will need eventual egd/colonoscopy for anemia work-up but will hold off on prep given abdominal exam at present time. Objective - Constitutional Vitals: Temp Pulse Resp BP Pulse Ox 98.1 F 104 H 19 127/82 106 H 12/25/17 12:00 12/25/17 13:23 12/25/17 11:00 12/25/17 13:23 12/25/17 12:00 - Labs CBC & Chem 7: 12/25/17 04:29 12/25/17 04:29 Labs: Laboratory Results - last 24 hr 12/24/17 12/25/17 12/25/17 16:07 00:45 04:29 WBC 12.2 H RBC 3.79 Hgb 9.8 L Hct 31.2 L MCV 82 L MCH 26 L MCHC 31 L RDW 19.3 H Plt Count 395 Lymph % (Auto) 10.5 L [place] % (Auto) 12.1 H Eos % (Auto) 0.9 Baso % (Auto) 0.7 Lymph # 1.3 [place] # 1.5 H Eos # 0.1 Baso # 0.1 Seg Neutrophils % 75.8 H Seg Neutrophils # 9.3 H Heparin Anti-Xa Level Sodium Potassium Chloride Carbon Dioxide Anion Gap BUN Creatinine Estimated GFR BUN/Creatinine Ratio Glucose POC Glucose 122 H 155 H Calcium 12/25/17 12/25/17 04:29 13:02 WBC RBC Hgb Hct MCV MCH MCHC RDW Plt Count Lymph % (Auto) [place] % (Auto) Eos % (Auto) Baso % (Auto) Lymph # [place] # Eos # Baso # Seg Neutrophils % Seg Neutrophils # Heparin Anti-Xa Level 0.46 Sodium 141 Potassium 3.9 Chloride 96.1 L Carbon Dioxide 19 L Anion Gap 30 BUN 75 H Creatinine 8.5 H Estimated GFR 6 BUN/Creatinine Ratio 9 Glucose 143 H POC Glucose Calcium 8.7
--- NOTE | 2017-12-25 10:51 | Progress Note ---
Assessment and Plan 67 y/o male with acute respiratory failure secondary to pulmonary edema, likely from acute renal failure and found to be profoundly anemic on admission. 1. Heme-positive DVT in right leg. GI seen and evaluated, ok with heparin so will continue. Once ileus resolves will need to be switched to oral therapy 2. GI-ileus, likely secondary to narcotics and lack of movement. Stopped all narcs and continue NGT with LIS. Now patient is having BM's. Will add scheduled reglan for 48 hours and have speech evaluate. If able, would like to attempt clear liquid diet. Hold suction on NGT for now. Output per report only 300. 3. Wean FiO2 as tolerated 4. Will transfer to [facility] floor today. If ileus/partial SBO does not resolve soon, may need surgical consult. If does not tolerate clears or not cleared by speech, will need nutrition evaluation as well for parental supplements. Subjective Date of service: 12/25/17 Principal diagnosis: Anemia Interval history: Awake and alert, sitting up in chair. ABdomen remains distended, but soft. No pain. Patient states that he is not hungry. documented 2 BM's. KUB still shows partial SBO. Pulm status is stable Objective Vital Signs - 12hr 12/24/17 12/24/17 12/24/17 23:00 23:15 23:30 Temperature Pulse Rate 103 H 105 H 103 H Pulse Rate [ Anterior Bilateral Throughout] Pulse Rate [ From Monitor] Respiratory 13 15 14 Rate Respiratory Rate [Anterior Bilateral Throughout] Blood Pressure 140/95 140/95 152/93 O2 Sat by Pulse 98 99 98 Oximetry 12/24/17 12/25/17 12/25/17 23:45 00:00 00:15 Temperature 97.8 F Pulse Rate 101 H 101 H 103 H Pulse Rate [ Anterior Bilateral Throughout] Pulse Rate [ 89 From Monitor] Respiratory 13 12 15 Rate Respiratory Rate [Anterior Bilateral Throughout] Blood Pressure 152/93 135/95 140/95 O2 Sat by Pulse 98 97 99 Oximetry 12/25/17 12/25/17 12/25/17 00:30 00:45 01:00 Temperature Pulse Rate 105 H 107 H 105 H Pulse Rate [ Anterior Bilateral Throughout] Pulse Rate [ From Monitor] Respiratory 17 15 16 Rate Respiratory Rate [Anterior Bilateral Throughout] Blood Pressure 138/87 152/93 138/87 O2 Sat by Pulse 94 97 95 Oximetry 12/25/17 12/25/17 12/25/17 01:15 01:31 01:45 Temperature Pulse Rate 108 H 110 H 110 H Pulse Rate [ Anterior Bilateral Throughout] Pulse Rate [ From Monitor] Respiratory 17 23 16 Rate Respiratory Rate [Anterior Bilateral Throughout] Blood Pressure 138/87 138/87 147/88 O2 Sat by Pulse 95 97 98 Oximetry 12/25/17 12/25/17 12/25/17 02:00 02:15 02:31 Temperature Pulse Rate 103 H 105 H 110 H Pulse Rate [ Anterior Bilateral Throughout] Pulse Rate [ From Monitor] Respiratory 25 H 13 16 Rate Respiratory Rate [Anterior Bilateral Throughout] Blood Pressure 138/91 147/88 147/88 O2 Sat by Pulse 95 97 96 Oximetry 12/25/17 12/25/17 12/25/17 02:45 03:00 03:15 Temperature Pulse Rate 106 H 105 H 102 H Pulse Rate [ Anterior Bilateral Throughout] Pulse Rate [ From Monitor] Respiratory 14 13 14 Rate Respiratory Rate [Anterior Bilateral Throughout] Blood Pressure 138/91 138/91 134/88 O2 Sat by Pulse 96 90 91 Oximetry 12/25/17 12/25/17 12/25/17 03:31 03:45 04:00 Temperature 97.3 F L Pulse Rate 109 H 108 H 106 H Pulse Rate [ Anterior Bilateral Throughout] Pulse Rate [ 92 H From Monitor] Respiratory 15 12 15 Rate Respiratory Rate [Anterior Bilateral Throughout] Blood Pressure 134/88 134/88 129/90 O2 Sat by Pulse 98 95 97 Oximetry 12/25/17 12/25/17 12/25/17 04:15 05:00 05:31 Temperature Pulse Rate 106 H 106 H 89 Pulse Rate [ Anterior Bilateral Throughout] Pulse Rate [ From Monitor] Respiratory 14 13 Rate Respiratory Rate [Anterior Bilateral Throughout] Blood Pressure 134/88 143/95 O2 Sat by Pulse 97 97 Oximetry 12/25/17 12/25/17 12/25/17 06:00 07:00 07:27 Temperature Pulse Rate 107 H 98 H Pulse Rate [ 107 H Anterior Bilateral Throughout] Pulse Rate [ From Monitor] Respiratory 23 11 L Rate Respiratory 18 Rate [Anterior Bilateral Throughout] Blood Pressure 146/94 146/94 O2 Sat by Pulse 100 98 Oximetry 12/25/17 12/25/17 12/25/17 07:50 08:00 09:00 Temperature 98.4 F Pulse Rate 101 H 103 H Pulse Rate [ 101 H Anterior Bilateral Throughout] Pulse Rate [ From Monitor] Respiratory 13 16 Rate Respiratory 18 Rate [Anterior Bilateral Throughout] Blood Pressure 131/86 136/79 O2 Sat by Pulse 95 94 Oximetry Constitutional: no acute distress, alert ENT: other (NG tube in place) Neck: supple Effort: normal Ascultation: Bilateral: clear, diminished breath sounds Percussion: Bilateral: not dull Cardiovascular: regular rate and rhythm Gastrointestinal: normoactive bowel sounds, soft, non-tender, other (no rebound tenderness, bowel sounds present,still looks somewhat distended) Integumentary: normal Extremities: no edema, pink and warm, pulses normal Neurologic: normal mental status, non-focal exam, pupils equal and round CBC and BMP: 12/25/17 04:29 12/25/17 04:29 ABG, PT/INR, D-dimer: ABG POC ABG pH 7.446 (7.35-7.45) 12/21/17 03:44 POC ABG pCO2 27.6 (35-45) L 12/21/17 03:44 POC ABG pO2 90 (80-105) 12/21/17 03:44 POC ABG HCO3 19.0 12/21/17 03:44 POC ABG Total CO2 20 12/21/17 03:44 POC ABG O2 Sat 97 12/21/17 03:44 PT/INR, D-dimer PT 14.3 Sec. (12.2-14.9) 12/19/17 19:17 INR 1.05 (0.87-1.13) 12/19/17 19:17 D-Dimer 1108.83 ng/mlDDU (0-234) H 12/15/17 17:16 Abnormal lab findings: Abnormal Labs 12/15/17 12/15/17 12/15/17 17:16 17:16 17:16 WBC 16.7 H RBC 2.12 L Hgb 4.9 L* Hct 16.0 L* MCV 76 L MCH 23 L MCHC 30 L RDW 17.3 H Plt Count 445 H Lymph % (Auto) 11.3 L Bee % (Auto) 7.4 H Bee # 1.2 H Seg Neutrophils % 80.2 H Seg Neuts % (Manual) Lymphocytes % (Manual) Monocytes % (Manual) Seg Neutrophils # 13.4 H Seg Neutrophils # Man Lymphocytes # (Manual) Monocytes # (Manual) D-Dimer 1108.83 H Heparin Anti-Xa Level POC ABG pH POC ABG pCO2 POC ABG pO2 VBG pH Sodium Potassium 5.1 H Chloride Carbon Dioxide 18 L BUN 76 H Creatinine 7.1 H Glucose 148 H POC Glucose Calcium 8.2 L Phosphorus Iron Total Creatine Kinase 736 H CK-MB (CK-2) 7.7 H Troponin T 0.067 H NT-Pro-B Natriuret Pep Albumin Triglycerides 206 H HDL Cholesterol 29 L Urine WBC (Auto) Urine Creatinine Urine Total Protein Crossmatch 12/15/17 12/15/17 12/15/17 17:16 17:45 18:01 WBC RBC Hgb Hct MCV MCH MCHC RDW Plt Count Lymph % (Auto) Bee % (Auto) Bee # Seg Neutrophils % Seg Neuts % (Manual) Lymphocytes % (Manual) Monocytes % (Manual) Seg Neutrophils # Seg Neutrophils # Man Lymphocytes # (Manual) Monocytes # (Manual) D-Dimer Heparin Anti-Xa Level POC ABG pH POC ABG pCO2 POC ABG pO2 VBG pH 7.204 L Sodium Potassium Chloride Carbon Dioxide BUN Creatinine Glucose POC Glucose Calcium Phosphorus Iron Total Creatine Kinase CK-MB (CK-2) Troponin T NT-Pro-B Natriuret Pep 33016 H Albumin Triglycerides HDL Cholesterol Urine WBC (Auto) Urine Creatinine Urine Total Protein Crossmatch See Detail 12/15/17 12/15/17 12/16/17 18:32 23:26 00:24 WBC RBC Hgb Hct MCV MCH MCHC RDW Plt Count Lymph % (Auto) Bee % (Auto) Bee # Seg Neutrophils % Seg Neuts % (Manual) Lymphocytes % (Manual) Monocytes % (Manual) Seg Neutrophils # Seg Neutrophils # Man Lymphocytes # (Manual) Monocytes # (Manual) D-Dimer Heparin Anti-Xa Level POC ABG pH 7.324 L 7.142 L POC ABG pCO2 33.6 L 50.4 H POC ABG pO2 110 H 107 H VBG pH Sodium Potassium Chloride Carbon Dioxide BUN Creatinine Glucose POC Glucose Calcium Phosphorus Iron 37 L Total Creatine Kinase CK-MB (CK-2) Troponin T NT-Pro-B Natriuret Pep Albumin Triglycerides HDL Cholesterol Urine WBC (Auto) Urine Creatinine Urine Total Protein Crossmatch 12/16/17 12/16/17 12/16/17 03:41 03:43 03:43 WBC 16.3 H RBC 3.01 L Hgb 7.5 L Hct 24.3 L D MCV 81 L MCH 25 L MCHC 31 L RDW 17.7 H Plt Count Lymph % (Auto) 7.9 L Bee % (Auto) 7.8 H Bee # 1.3 H Seg Neutrophils % 83.7 H Seg Neuts % (Manual) Lymphocytes % (Manual) Monocytes % (Manual) Seg Neutrophils # 13.7 H Seg Neutrophils # Man Lymphocytes # (Manual) Monocytes # (Manual) D-Dimer Heparin Anti-Xa Level POC ABG pH 7.211 L POC ABG pCO2 45.3 H POC ABG pO2 123 H VBG pH Sodium Potassium 5.3 H Chloride Carbon Dioxide 16 L BUN 76 H Creatinine 7.5 H Glucose 121 H POC Glucose Calcium 7.9 L Phosphorus Iron Total Creatine Kinase CK-MB (CK-2) Troponin T NT-Pro-B Natriuret Pep Albumin 3.6 L Triglycerides HDL Cholesterol Urine WBC (Auto) Urine Creatinine Urine Total Protein Crossmatch 12/16/17 12/16/17 12/16/17 10:11 11:10 11:41 WBC 17.6 H RBC 3.16 L Hgb 7.9 L Hct 24.5 L MCV 78 L MCH 25 L MCHC RDW 17.7 H Plt Count Lymph % (Auto) 8.6 L Bee % (Auto) Bee # 1.3 H Seg Neutrophils % 83.7 H Seg Neuts % (Manual) Lymphocytes % (Manual) Monocytes % (Manual) Seg Neutrophils # 14.7 H Seg Neutrophils # Man Lymphocytes # (Manual) Monocytes # (Manual) D-Dimer Heparin Anti-Xa Level POC ABG pH 7.491 H POC ABG pCO2 POC ABG pO2 56 L VBG pH Sodium Potassium Chloride Carbon Dioxide BUN Creatinine Glucose POC Glucose 127 H Calcium Phosphorus Iron Total Creatine Kinase CK-MB (CK-2) Troponin T NT-Pro-B Natriuret Pep Albumin Triglycerides HDL Cholesterol Urine WBC (Auto) Urine Creatinine Urine Total Protein Crossmatch 12/16/17 12/16/17 12/16/17 12:05 12:05 12:15 WBC RBC Hgb 7.4 L Hct 22.8 L MCV MCH MCHC RDW Plt Count Lymph % (Auto) Bee % (Auto) Bee # Seg Neutrophils % Seg Neuts % (Manual) Lymphocytes % (Manual) Monocytes % (Manual) Seg Neutrophils # Seg Neutrophils # Man Lymphocytes # (Manual) Monocytes # (Manual) D-Dimer Heparin Anti-Xa Level POC ABG pH POC ABG pCO2 POC ABG pO2 VBG pH Sodium Potassium Chloride Carbon Dioxide BUN Creatinine Glucose POC Glucose Calcium Phosphorus Iron Total Creatine Kinase CK-MB (CK-2) Troponin T NT-Pro-B Natriuret Pep Albumin Triglycerides HDL Cholesterol Urine WBC (Auto) > 182.0 H Urine Creatinine 81.7 H Urine Total Protein 493 H Crossmatch 12/16/17 12/16/17 12/17/17 17:52 18:08 00:11 WBC RBC Hgb 6.6 L 6.9 L Hct 20.6 L 20.8 L MCV MCH MCHC RDW Plt Count Lymph % (Auto) Bee % (Auto) Bee # Seg Neutrophils % Seg Neuts % (Manual) Lymphocytes % (Manual) Monocytes % (Manual) Seg Neutrophils # Seg Neutrophils # Man Lymphocytes # (Manual) Monocytes # (Manual) D-Dimer Heparin Anti-Xa Level POC ABG pH POC ABG pCO2 POC ABG pO2 VBG pH Sodium Potassium Chloride Carbon Dioxide BUN Creatinine Glucose POC Glucose 127 H Calcium Phosphorus Iron Total Creatine Kinase CK-MB (CK-2) Troponin T NT-Pro-B Natriuret Pep Albumin Triglycerides HDL Cholesterol Urine WBC (Auto) Urine Creatinine Urine Total Protein Crossmatch 12/17/17 12/17/17 12/17/17 00:24 04:03 07:54 WBC 13.1 H RBC 3.06 L Hgb 8.1 L Hct 24.3 L MCV 79 L MCH 26 L MCHC RDW 18.6 H Plt Count Lymph % (Auto) 11.9 L Bee % (Auto) 8.6 H Bee # 1.1 H Seg Neutrophils % 77.9 H Seg Neuts % (Manual) Lymphocytes % (Manual) Monocytes % (Manual) Seg Neutrophils # 10.2 H Seg Neutrophils # Man Lymphocytes # (Manual) Monocytes # (Manual) D-Dimer Heparin Anti-Xa Level POC ABG pH 7.453 H POC ABG pCO2 33.6 L POC ABG pO2 VBG pH Sodium Potassium Chloride Carbon Dioxide BUN Creatinine Glucose POC Glucose 126 H Calcium Phosphorus Iron Total Creatine Kinase CK-MB (CK-2) Troponin T NT-Pro-B Natriuret Pep Albumin Triglycerides HDL Cholesterol Urine WBC (Auto) Urine Creatinine Urine Total Protein Crossmatch 12/17/17 12/17/17 12/17/17 07:54 09:22 11:55 WBC RBC Hgb Hct MCV MCH MCHC RDW Plt Count Lymph % (Auto) Bee % (Auto) Bee # Seg Neutrophils % Seg Neuts % (Manual) Lymphocytes % (Manual) Monocytes % (Manual) Seg Neutrophils # Seg Neutrophils # Man Lymphocytes # (Manual) Monocytes # (Manual) D-Dimer Heparin Anti-Xa Level POC ABG pH POC ABG pCO2 POC ABG pO2 VBG pH Sodium Potassium 3.4 L D Chloride Carbon Dioxide 21 L BUN 65 H Creatinine 6.4 H Glucose 133 H POC Glucose 112 H 119 H Calcium Phosphorus Iron Total Creatine Kinase CK-MB (CK-2) Troponin T NT-Pro-B Natriuret Pep Albumin Triglycerides HDL Cholesterol Urine WBC (Auto) Urine Creatinine Urine Total Protein Crossmatch 12/17/17 12/17/17 12/17/17 13:07 17:15 17:29 WBC RBC Hgb 9.3 L 9.8 L Hct 27.9 L 29.8 L MCV MCH MCHC RDW Plt Count Lymph % (Auto) Bee % (Auto) Bee # Seg Neutrophils % Seg Neuts % (Manual) Lymphocytes % (Manual) Monocytes % (Manual) Seg Neutrophils # Seg Neutrophils # Man Lymphocytes # (Manual) Monocytes # (Manual) D-Dimer Heparin Anti-Xa Level POC ABG pH POC ABG pCO2 POC ABG pO2 VBG pH Sodium Potassium Chloride Carbon Dioxide BUN Creatinine Glucose POC Glucose 158 H Calcium Phosphorus Iron Total Creatine Kinase CK-MB (CK-2) Troponin T NT-Pro-B Natriuret Pep Albumin Triglycerides HDL Cholesterol Urine WBC (Auto) Urine Creatinine Urine Total Protein Crossmatch 12/18/17 12/18/17 12/18/17 00:03 00:28 04:44 WBC RBC Hgb 9.9 L Hct 29.9 L MCV MCH MCHC RDW Plt Count Lymph % (Auto) Bee % (Auto) Bee # Seg Neutrophils % Seg Neuts % (Manual) Lymphocytes % (Manual) Monocytes % (Manual) Seg Neutrophils # Seg Neutrophils # Man Lymphocytes # (Manual) Monocytes # (Manual) D-Dimer Heparin Anti-Xa Level POC ABG pH 7.497 H POC ABG pCO2 27.0 L POC ABG pO2 136 H VBG pH Sodium Potassium Chloride Carbon Dioxide BUN Creatinine Glucose POC Glucose 109 H Calcium Phosphorus Iron Total Creatine Kinase CK-MB (CK-2) Troponin T NT-Pro-B Natriuret Pep Albumin Triglycerides HDL Cholesterol Urine WBC (Auto) Urine Creatinine Urine Total Protein Crossmatch 12/18/17 12/18/17 12/18/17 05:12 05:12 11:55 WBC 14.2 H RBC Hgb 9.8 L Hct 29.7 L MCV 81 L MCH 27 L MCHC RDW 18.8 H Plt Count Lymph % (Auto) 12.3 L Bee % (Auto) 9.4 H Bee # 1.3 H Seg Neutrophils % 75.5 H Seg Neuts % (Manual) Lymphocytes % (Manual) Monocytes % (Manual) Seg Neutrophils # 10.7 H Seg Neutrophils # Man Lymphocytes # (Manual) Monocytes # (Manual) D-Dimer Heparin Anti-Xa Level POC ABG pH POC ABG pCO2 POC ABG pO2 VBG pH Sodium Potassium Chloride Carbon Dioxide 19 L BUN 55 H Creatinine 6.0 H Glucose 112 H POC Glucose 126 H Calcium Phosphorus Iron Total Creatine Kinase CK-MB (CK-2) Troponin T NT-Pro-B Natriuret Pep Albumin Triglycerides HDL Cholesterol Urine WBC (Auto) Urine Creatinine Urine Total Protein Crossmatch 12/18/17 12/19/17 12/19/17 21:34 05:01 05:10 WBC 11.9 H RBC Hgb 9.5 L Hct 30.1 L MCV 82 L MCH 26 L MCHC RDW 19.0 H Plt Count Lymph % (Auto) Bee % (Auto) Bee # Seg Neutrophils % Seg Neuts % (Manual) Lymphocytes % (Manual) Monocytes % (Manual) Seg Neutrophils # Seg Neutrophils # Man Lymphocytes # (Manual) Monocytes # (Manual) D-Dimer Heparin Anti-Xa Level POC ABG pH POC ABG pCO2 29.8 L POC ABG pO2 116 H VBG pH Sodium Potassium Chloride Carbon Dioxide BUN Creatinine Glucose POC Glucose 120 H Calcium Phosphorus Iron Total Creatine Kinase CK-MB (CK-2) Troponin T NT-Pro-B Natriuret Pep Albumin Triglycerides HDL Cholesterol Urine WBC (Auto) Urine Creatinine Urine Total Protein Crossmatch 12/19/17 12/19/17 12/19/17 05:10 05:10 07:15 WBC RBC Hgb Hct MCV MCH MCHC RDW Plt Count Lymph % (Auto) Bee % (Auto) Bee # Seg Neutrophils % Seg Neuts % (Manual) Lymphocytes % (Manual) Monocytes % (Manual) Seg Neutrophils # Seg Neutrophils # Man Lymphocytes # (Manual) Monocytes # (Manual) D-Dimer Heparin Anti-Xa Level POC ABG pH POC ABG pCO2 POC ABG pO2 VBG pH Sodium Potassium Chloride 95.9 L Carbon Dioxide 18 L BUN 90 H Creatinine 9.2 H D Glucose 140 H POC Glucose 130 H Calcium Phosphorus 11.90 H Iron Total Creatine Kinase CK-MB (CK-2) Troponin T NT-Pro-B Natriuret Pep Albumin Triglycerides 440 H HDL Cholesterol Urine WBC (Auto) Urine Creatinine Urine Total Protein Crossmatch 12/19/17 12/19/17 12/19/17 11:52 15:36 19:17 WBC RBC Hgb 10.3 L Hct 31.1 L MCV MCH MCHC RDW Plt Count Lymph % (Auto) Bee % (Auto) Bee # Seg Neutrophils % Seg Neuts % (Manual) Lymphocytes % (Manual) Monocytes % (Manual) Seg Neutrophils # Seg Neutrophils # Man Lymphocytes # (Manual) Monocytes # (Manual) D-Dimer Heparin Anti-Xa Level POC ABG pH POC ABG pCO2 POC ABG pO2 VBG pH Sodium Potassium Chloride Carbon Dioxide BUN Creatinine Glucose POC Glucose 148 H 127 H Calcium Phosphorus Iron Total Creatine Kinase CK-MB (CK-2) Troponin T NT-Pro-B Natriuret Pep Albumin Triglycerides HDL Cholesterol Urine WBC (Auto) Urine Creatinine Urine Total Protein Crossmatch 12/19/17 12/19/17 12/20/17 19:17 23:01 02:07 WBC RBC Hgb Hct MCV MCH MCHC RDW Plt Count Lymph % (Auto) Bee % (Auto) Bee # Seg Neutrophils % Seg Neuts % (Manual) Lymphocytes % (Manual) Monocytes % (Manual) Seg Neutrophils # Seg Neutrophils # Man Lymphocytes # (Manual) Monocytes # (Manual) D-Dimer Heparin Anti-Xa Level < 0.10 L 0.77 H POC ABG pH POC ABG pCO2 POC ABG pO2 VBG pH Sodium Potassium Chloride Carbon Dioxide BUN Creatinine Glucose POC Glucose 151 H Calcium Phosphorus Iron Total Creatine Kinase CK-MB (CK-2) Troponin T NT-Pro-B Natriuret Pep Albumin Triglycerides HDL Cholesterol Urine WBC (Auto) Urine Creatinine Urine Total Protein Crossmatch 12/20/17 12/20/17 12/20/17 02:09 04:03 07:52 WBC RBC Hgb Hct MCV MCH MCHC RDW Plt Count Lymph % (Auto) Bee % (Auto) Bee # Seg Neutrophils % Seg Neuts % (Manual) Lymphocytes % (Manual) Monocytes % (Manual) Seg Neutrophils # Seg Neutrophils # Man Lymphocytes # (Manual) Monocytes # (Manual) D-Dimer Heparin Anti-Xa Level POC ABG pH 7.308 L POC ABG pCO2 31.1 L POC ABG pO2 133 H VBG pH Sodium 147 H Potassium Chloride 96.9 L Carbon Dioxide 14 L BUN 116 H Creatinine 11.6 H Glucose 109 H POC Glucose 131 H Calcium Phosphorus Iron Total Creatine Kinase CK-MB (CK-2) Troponin T NT-Pro-B Natriuret Pep Albumin Triglycerides HDL Cholesterol Urine WBC (Auto) Urine Creatinine Urine Total Protein Crossmatch 12/20/17 12/20/17 12/20/17 11:11 11:43 16:08 WBC RBC Hgb Hct MCV MCH MCHC RDW Plt Count Lymph % (Auto) Bee % (Auto) Bee # Seg Neutrophils % Seg Neuts % (Manual) Lymphocytes % (Manual) Monocytes % (Manual) Seg Neutrophils # Seg Neutrophils # Man Lymphocytes # (Manual) Monocytes # (Manual) D-Dimer Heparin Anti-Xa Level POC ABG pH 7.266 L POC ABG pCO2 32.6 L POC ABG pO2 VBG pH Sodium Potassium Chloride Carbon Dioxide BUN Creatinine Glucose POC Glucose 143 H 159 H Calcium Phosphorus Iron Total Creatine Kinase CK-MB (CK-2) Troponin T NT-Pro-B Natriuret Pep Albumin Triglycerides HDL Cholesterol Urine WBC (Auto) Urine Creatinine Urine Total Protein Crossmatch 12/21/17 12/21/17 12/21/17 03:44 04:45 04:45 WBC 13.7 H RBC Hgb 10.8 L Hct 33.8 L MCV 81 L MCH 26 L MCHC RDW 19.4 H Plt Count Lymph % (Auto) Bee % (Auto) Bee # Seg Neutrophils % Seg Neuts % (Manual) 84.0 H Lymphocytes % (Manual) 6.0 L Monocytes % (Manual) 9.0 H Seg Neutrophils # Seg Neutrophils # Man 11.5 H Lymphocytes # (Manual) 0.8 L Monocytes # (Manual) 1.2 H D-Dimer Heparin Anti-Xa Level POC ABG pH POC ABG pCO2 27.6 L POC ABG pO2 VBG pH Sodium Potassium Chloride 93.9 L Carbon Dioxide 19 L BUN 82 H Creatinine 8.2 H Glucose 113 H POC Glucose Calcium Phosphorus Iron Total Creatine Kinase CK-MB (CK-2) Troponin T NT-Pro-B Natriuret Pep Albumin Triglycerides HDL Cholesterol Urine WBC (Auto) Urine Creatinine Urine Total Protein Crossmatch 12/21/17 12/21/17 12/21/17 08:08 09:35 12:11 WBC RBC Hgb Hct MCV MCH MCHC RDW Plt Count Lymph % (Auto) Bee % (Auto) Bee # Seg Neutrophils % Seg Neuts % (Manual) Lymphocytes % (Manual) Monocytes % (Manual) Seg Neutrophils # Seg Neutrophils # Man Lymphocytes # (Manual) Monocytes # (Manual) D-Dimer Heparin Anti-Xa Level 0.80 H POC ABG pH POC ABG pCO2 POC ABG pO2 VBG pH Sodium Potassium Chloride Carbon Dioxide BUN Creatinine Glucose POC Glucose 123 H 139 H Calcium Phosphorus Iron Total Creatine Kinase CK-MB (CK-2) Troponin T NT-Pro-B Natriuret Pep Albumin Triglycerides HDL Cholesterol Urine WBC (Auto) Urine Creatinine Urine Total Protein Crossmatch 12/21/17 12/21/17 12/21/17 15:51 17:12 23:18 WBC RBC Hgb Hct MCV MCH MCHC RDW Plt Count Lymph % (Auto) Bee % (Auto) Bee # Seg Neutrophils % Seg Neuts % (Manual) Lymphocytes % (Manual) Monocytes % (Manual) Seg Neutrophils # Seg Neutrophils # Man Lymphocytes # (Manual) Monocytes # (Manual) D-Dimer Heparin Anti-Xa Level 1.17 H POC ABG pH POC ABG pCO2 POC ABG pO2 VBG pH Sodium Potassium Chloride Carbon Dioxide BUN Creatinine Glucose POC Glucose 169 H 115 H Calcium Phosphorus Iron Total Creatine Kinase CK-MB (CK-2) Troponin T NT-Pro-B Natriuret Pep Albumin Triglycerides HDL Cholesterol Urine WBC (Auto) Urine Creatinine Urine Total Protein Crossmatch 12/22/17 12/23/17 12/23/17 18:55 00:05 04:35 WBC 12.7 H RBC 3.64 L Hgb 9.8 L Hct 30.0 L MCV 83 L MCH 27 L MCHC RDW 18.9 H Plt Count Lymph % (Auto) 10.3 L Bee % (Auto) 10.3 H Bee # 1.3 H Seg Neutrophils % 77.5 H Seg Neuts % (Manual) Lymphocytes % (Manual) Monocytes % (Manual) Seg Neutrophils # 9.9 H Seg Neutrophils # Man Lymphocytes # (Manual) Monocytes # (Manual) D-Dimer Heparin Anti-Xa Level POC ABG pH POC ABG pCO2 POC ABG pO2 VBG pH Sodium Potassium Chloride Carbon Dioxide BUN Creatinine Glucose POC Glucose 120 H 108 H Calcium Phosphorus Iron Total Creatine Kinase CK-MB (CK-2) Troponin T NT-Pro-B Natriuret Pep Albumin Triglycerides HDL Cholesterol Urine WBC (Auto) Urine Creatinine Urine Total Protein Crossmatch 12/23/17 12/23/17 12/23/17 04:35 04:35 06:27 WBC RBC Hgb Hct MCV MCH MCHC RDW Plt Count Lymph % (Auto) Bee % (Auto) Bee # Seg Neutrophils % Seg Neuts % (Manual) Lymphocytes % (Manual) Monocytes % (Manual) Seg Neutrophils # Seg Neutrophils # Man Lymphocytes # (Manual) Monocytes # (Manual) D-Dimer Heparin Anti-Xa Level 0.24 L POC ABG pH POC ABG pCO2 POC ABG pO2 VBG pH Sodium Potassium Chloride 88.9 L Carbon Dioxide 16 L BUN 107 H Creatinine 9.8 H Glucose 140 H POC Glucose 143 H Calcium Phosphorus Iron Total Creatine Kinase CK-MB (CK-2) Troponin T NT-Pro-B Natriuret Pep Albumin Triglycerides HDL Cholesterol Urine WBC (Auto) Urine Creatinine Urine Total Protein Crossmatch 12/23/17 12/24/17 12/24/17 11:55 00:00 04:40 WBC 13.7 H RBC Hgb 9.8 L Hct 30.4 L MCV 81 L MCH 26 L MCHC RDW 19.1 H Plt Count Lymph % (Auto) 10.7 L Bee % (Auto) 12.2 H Bee # 1.7 H Seg Neutrophils % 75.0 H Seg Neuts % (Manual) Lymphocytes % (Manual) Monocytes % (Manual) Seg Neutrophils # 10.3 H Seg Neutrophils # Man Lymphocytes # (Manual) Monocytes # (Manual) D-Dimer Heparin Anti-Xa Level POC ABG pH POC ABG pCO2 POC ABG pO2 VBG pH Sodium Potassium Chloride Carbon Dioxide BUN Creatinine Glucose POC Glucose 161 H 143 H Calcium Phosphorus Iron Total Creatine Kinase CK-MB (CK-2) Troponin T NT-Pro-B Natriuret Pep Albumin Triglycerides HDL Cholesterol Urine WBC (Auto) Urine Creatinine Urine Total Protein Crossmatch 12/24/17 12/24/17 12/24/17 04:40 08:16 11:11 WBC RBC Hgb Hct MCV MCH MCHC RDW Plt Count Lymph % (Auto) Bee % (Auto) Bee # Seg Neutrophils % Seg Neuts % (Manual) Lymphocytes % (Manual) Monocytes % (Manual) Seg Neutrophils # Seg Neutrophils # Man Lymphocytes # (Manual) Monocytes # (Manual) D-Dimer Heparin Anti-Xa Level POC ABG pH POC ABG pCO2 POC ABG pO2 VBG pH Sodium Potassium 3.5 L D Chloride 96.8 L Carbon Dioxide 21 L BUN 52 H Creatinine 6.0 H Glucose 131 H POC Glucose 120 H 120 H Calcium Phosphorus Iron Total Creatine Kinase CK-MB (CK-2) Troponin T NT-Pro-B Natriuret Pep Albumin Triglycerides HDL Cholesterol Urine WBC (Auto) Urine Creatinine Urine Total Protein Crossmatch 12/24/17 12/24/17 12/25/17 13:33 16:07 00:45 WBC RBC Hgb Hct MCV MCH MCHC RDW Plt Count Lymph % (Auto) Bee % (Auto) Bee # Seg Neutrophils % Seg Neuts % (Manual) Lymphocytes % (Manual) Monocytes % (Manual) Seg Neutrophils # Seg Neutrophils # Man Lymphocytes # (Manual) Monocytes # (Manual) D-Dimer Heparin Anti-Xa Level POC ABG pH POC ABG pCO2 POC ABG pO2 VBG pH Sodium Potassium Chloride Carbon Dioxide BUN Creatinine Glucose POC Glucose 125 H 122 H 155 H Calcium Phosphorus Iron Total Creatine Kinase CK-MB (CK-2) Troponin T NT-Pro-B Natriuret Pep Albumin Triglycerides HDL Cholesterol Urine WBC (Auto) Urine Creatinine Urine Total Protein Crossmatch 12/25/17 12/25/17 04:29 04:29 WBC 12.2 H RBC Hgb 9.8 L Hct 31.2 L MCV 82 L MCH 26 L MCHC 31 L RDW 19.3 H Plt Count Lymph % (Auto) 10.5 L Bee % (Auto) 12.1 H Bee # 1.5 H Seg Neutrophils % 75.8 H Seg Neuts % (Manual) Lymphocytes % (Manual) Monocytes % (Manual) Seg Neutrophils # 9.3 H Seg Neutrophils # Man Lymphocytes # (Manual) Monocytes # (Manual) D-Dimer Heparin Anti-Xa Level POC ABG pH POC ABG pCO2 POC ABG pO2 VBG pH Sodium Potassium Chloride 96.1 L Carbon Dioxide 19 L BUN 75 H Creatinine 8.5 H Glucose 143 H POC Glucose Calcium Phosphorus Iron Total Creatine Kinase CK-MB (CK-2) Troponin T NT-Pro-B Natriuret Pep Albumin Triglycerides HDL Cholesterol Urine WBC (Auto) Urine Creatinine Urine Total Protein Crossmatch Allied health notes reviewed: nursing
--- NOTE | 2017-12-25 11:12 | Progress Note ---
Assessment and Plan Acute respiratory failure now extrubated Acute on chronic renal failure s/p urgent dialysis Anemia s/p transfusion of PRBCs Acute systolic heart failure EF 40-45% by echo Hypertension Acute right iliac DVT on IV heparin Ileus vs partial small bowel obstruction GI is following Conservative cardiac management. Subjective Date of service: 12/25/17 Principal diagnosis: Anemia Interval history: Patient is sitting up in the chair. He has no cardiac complaints. Objective Vital Signs Temp Pulse Pulse Pulse Resp Resp BP 12/25/17 09:00 103 H 16 136/79 12/25/17 08:00 98.4 F 101 H 13 131/86 12/25/17 07:50 101 H 18 12/25/17 07:27 107 H 18 12/25/17 07:00 98 H 11 L 146/94 12/25/17 06:00 107 H 23 146/94 12/25/17 05:31 89 12/25/17 05:00 106 H 13 143/95 12/25/17 04:15 106 H 14 134/88 12/25/17 04:00 97.3 F L 106 H 92 H 15 129/90 12/25/17 03:45 108 H 12 134/88 12/25/17 03:31 109 H 15 134/88 12/25/17 03:15 102 H 14 134/88 12/25/17 03:00 105 H 13 138/91 12/25/17 02:45 106 H 14 138/91 12/25/17 02:31 110 H 16 147/88 12/25/17 02:15 105 H 13 147/88 12/25/17 02:00 103 H 25 H 138/91 12/25/17 01:45 110 H 16 147/88 12/25/17 01:31 110 H 23 138/87 12/25/17 01:15 108 H 17 138/87 12/25/17 01:00 105 H 16 138/87 12/25/17 00:45 107 H 15 152/93 12/25/17 00:30 105 H 17 138/87 12/25/17 00:15 103 H 15 140/95 12/25/17 00:00 97.8 F 101 H 89 12 135/95 12/24/17 23:45 101 H 13 152/93 12/24/17 23:30 103 H 14 152/93 09/23/18 23:15 105 H 15 140/95 09/23/18 23:00 103 H 13 140/95 09//18 22:45 105 H 13 134/93 09/23/18 22:30 105 H 15 134/93 09//18 22:15 102 H 14 140/80 09/18 22:00 98 H 11 L 140/80 12/24/18 21:45 98 H 14 138/77 09//18 21:30 101 H 12 138/77 09//18 21:15 100 H 10 L 136/82 09/23/18 21:00 101 H 12 136/82 09//18 20:59 87 128/76 //18 20:47 98 H 14 138/84 12/24/18 20:45 100 H 14 138/84 12/24/18 20:35 95 H 14 138/84 18 20:30 98 H 14 138/84 12/24/18 20:29 97 H 18 18 20:19 103 H 18 18 20:15 102 H 14 132/88 12/24/18 20:00 97.4 F L 97 H 87 87 20 20 132/88 18 19:45 96 H 13 146/85 12/24/18 19:30 102 H 14 146/85 18 19:15 101 H 18 135/83 18 19:00 102 H 17 140/77 12/24/18 18:45 95 H 12 140/77 12/24/18 18:30 99 H 13 140/77 12/24/18 18:15 97 H 13 141/81 09/18 18:00 108 H 17 141/81 12/24/18 17:45 97 H 13 129/85 09/23/18 17:31 98 H 14 129/85 09/23/18 17:15 99 H 13 134/83 09/18 17:00 93 H 13 134/83 //18 16:45 93 H 14 123/81 //18 16:30 96 H 16 123/81 09/18 16:15 95 H 16 134/84 12/24/18 16:00 98.9 F 93 H 100 H 14 134/84 09/23/18 15:45 86 14 137/78 12/24/17 15:30 83 14 137/78 12/24/17 15:25 101 H 154/86 12/24/17 15:24 101 H 154/86 12/24/17 15:15 97 H 12 154/86 12/24/17 15:00 105 H 12 154/86 12/24/17 14:52 97 H 17 12/24/17 14:45 99 H 15 152/87 12/24/17 14:44 96 H 16 12/24/17 14:30 96 H 14 152/87 12/24/17 14:15 101 H 14 147/85 12/24/17 14:00 94 H 14 147/85 12/24/17 13:45 94 H 20 150/84 12/24/17 13:30 99 H 14 150/84 12/24/17 13:15 103 H 19 152/80 12/24/17 13:00 98 H 16 152/83 12/24/17 12:45 107 H 19 152/80 12/24/17 12:30 94 H 15 152/80 12/24/17 12:15 100 H 14 154/88 12/24/17 12:01 110 H 16 154/88 12/24/17 12:00 100 F H 100 H 22 12/24/17 11:52 98.5 F 12/24/17 11:45 96 H 15 134/89 12/24/17 11:30 100 H 15 134/89 12/24/17 11:15 97 H 14 145/83 Pulse Ox 12/25/17 09:00 94 12/25/17 08:00 95 12/25/17 07:50 12/25/17 07:27 12/25/17 07:00 98 12/25/17 06:00 100 12/25/17 05:31 12/25/17 05:00 97 12/25/17 04:15 97 12/25/17 04:00 97 12/25/17 03:45 95 12/25/17 03:31 98 12/25/17 03:15 91 12/25/17 03:00 90 12/25/17 02:45 96 12/25/17 02:31 96 12/25/17 02:15 97 12/25/17 02:00 95 12/25/17 01:45 98 12/25/17 01:31 97 18 01:15 95 12/25/17 01:00 95 12/25/17 00:45 97 12/25/17 00:30 94 12/25/17 00:15 99 12/25/17 00:00 97 12/24/17 23:45 98 12/24/17 23:30 98 12/24/17 23:15 99 12/24/17 23:00 98 12/24/17 22:45 97 12/24/17 22:30 97 12/24/17 22:15 94 12/24/17 22:00 97 12/24/17 21:45 97 12/24/17 21:30 97 12/24/17 21:15 96 12/24/17 21:00 95 12/24/17 20:59 12/24/17 20:47 94 12/24/17 20:45 95 12/24/17 20:35 98 12/24/17 20:30 99 12/24/17 20:29 12/24/17 20:19 97 12/24/17 20:15 94 12/24/17 20:00 98 12/24/17 19:45 96 12/24/17 19:30 95 12/24/17 19:15 97 12/24/17 19:00 96 12/24/17 18:45 97 12/24/17 18:30 98 12/24/17 18:15 99 12/24/17 18:00 97 12/24/17 17:45 99 12/24/17 17:31 99 12/24/17 17:15 90 12/24/17 17:00 98 12/24/17 16:45 98 12/24/17 16:30 96 12/24/17 16:15 95 12/24/17 16:00 95 12/24/17 15:45 97 12/24/17 15:30 95 12/24/17 15:25 12/24/17 15:24 12/24/17 15:15 97 12/24/17 15:00 97 12/24/17 14:52 12/24/17 14:45 91 12/24/17 14:44 12/24/17 14:30 96 12/24/17 14:15 93 09/23/18 14:00 99 12/24/17 13:45 98 12/24/17 13:30 92 12/24/17 13:15 92 12/24/17 13:00 96 12/24/17 12:45 92 12/24/17 12:30 99 12/24/17 12:15 100 12/24/17 12:01 79 L 12/24/17 12:00 96 12/24/17 11:52 12/24/17 11:45 86 12/24/17 11:30 96 12/24/17 11:15 93 - Physical Examination General: No Apparent Distress HEENT: Positive: PERRL Cardiac: Positive: Tachycardia Neuro: Positive: Grossly Intact Abdomen: Positive: Distended Extremities: Absent: edema - Labs and Meds CBC 12/25/17 Range/Units 04:29 WBC 12.2 H (4.5-11.0) K/mm3 RBC 3.79 (3.65-5.03) M/mm3 Hgb 9.8 L (11.8-15.2) gm/dl Hct 31.2 L (35.5-45.6) % Plt Count 395 (140-440) K/mm3 Lymph # 1.3 (1.2-5.4) K/mm3 [place] # 1.5 H (0.0-0.8) K/mm3 Eos # 0.1 (0.0-0.4) K/mm3 Baso # 0.1 (0.0-0.1) K/mm3 Comprehensive Metabolic Panel 12/25/17 Range/Units 04:29 Sodium 141 (137-145) mmol/L Potassium 3.9 (3.6-5.0) mmol/L Chloride 96.1 L (98-107) mmol/L Carbon Dioxide 19 L (22-30) mmol/L BUN 75 H (9-20) mg/dL Creatinine 8.5 H (0.8-1.5) mg/dL Glucose 143 H (75-100) mg/dL Calcium 8.7 (8.4-10.2) mg/dL - Allied health notes Allied health notes reviewed: nursing
[2017-12-25] MEDS: REGLAN IV SCH ×2 (13:20→22:13)
--- NOTE | 2017-12-25 17:11 | Progress Note ---
Assessment and Plan Paralytic ilius vs Partial SBO - seen on abdominal xry Since 12/21/17 - held TF, had BM today, but abdomen still distended - Consulted surgery, cont to monitor clinically Right LE DVT -cont on heparin drip - monitor h and h Acute respiratory failure with hypoxia -likely due to pulmonary edema from renal failure - required intubation with MV - Off steroids - ABG improved - pulmonology following - s/p extubation 12/21/17 - cont nebs and supplemental O2 Sepsis likely from PNA, resolved -treated with IV abx, -blood cultures negative so far Bilateral pneumonia -treated with abx -blood and sputum culture neg BALDO 2/2 acute on chronic cardio renal syndrome, ischemic ATN in the setting of severe anemia and sepsis -H/O CKD suspected -on HD since admission -Neprology following - s/p perm cath placed Hyperkalemia, now hypokalemia -will monitor level and replete as needed Elevated d-dimer -VQ scan pending, on heparin drip now Severe anemia, probably sec to CKD/ESRD -s/p blood transfusion with 4 units of PRBC -s/p CT abdomen and pelvis to assess for acute bleed, but no active source per GI -stable H&H post transfusion Acute exacerbation of CHF (congestive heart failure), suspected -2d ECHO report showed EF 40-45% -cont volume removal by increased Ultrafiltration Elevated troponin probably secondary to demand ischemia -Cardiology following HTN -Coreg and PRN hydralazine started -monitor and adjust med as needed DVT prophylaxis on Heparin and GI prophylaxis on Protonix Disposition: Patient remains in critical condition, continue current management Brief history: This is a 67 yo M with unknown past medical history, who was brought in to ER by EMS for progressive shortness of breath, associated with productive cough. As per EMS reports, Pt was placed on 100% nonrebreather and brought to the ER. CXR showed evidence of cardiomegaly and pulmonary edema, and since pt developed worsening respiratory failure with hypercapnia/hypoxia pt required intubation. Labs showed elevated WBC > 17, severe anemia with Hb as low as 4.9, elevated BUN/Cr at 76/7.1 mg/dl along with hyperkalemia and metabolic acidosis. He was transfused and vascath placed for HD per renal. Hospitalist Physical exam: GENERAL: elderly male, NAD HEENT: Normocephalic. Atraumatic. No conjunctival congestion or icterus. Patient has moist mucous membranes. NECK: Supple. Trachea midline. CHEST/LUNGS: Clear to auscultated bilaterally, HEART/CARDIOVASCULAR: Regular in rate and rhythm. S1 and S2 positive. ABDOMEN: Abdomen is remained distended, nontender. Patient has normal bowel sounds. SKIN: There is no rash. Warm and dry. NEURO: no focal deficit MUSCULOSKELETAL: No joint effusion or tenderness. EXTRIMITY: No edema, no cyanosis or clubbing. PSYCH: cooperative Subjective Date of service: 12/25/17 Principal diagnosis: Anemia Interval history: Patient seen and examined. Medical records and medication list reviewed. off restraint today, off NG suction transfer to surgical floor today Had BM today, but abdomen still distended Objective - Constitutional Vitals: Vital Signs - 12hr 12/25/17 12/25/17 12/25/17 05:31 06:00 07:00 Temperature Pulse Rate 89 107 H 98 H Pulse Rate [ Anterior Bilateral Throughout] Respiratory 23 11 L Rate Respiratory Rate [Anterior Bilateral Throughout] Blood Pressure 146/94 146/94 O2 Sat by Pulse 100 98 Oximetry 12/25/17 12/25/17 12/25/17 07:27 07:50 08:00 Temperature 98.4 F Pulse Rate 108 H Pulse Rate [ 107 H 101 H Anterior Bilateral Throughout] Respiratory 13 Rate Respiratory 18 18 Rate [Anterior Bilateral Throughout] Blood Pressure 131/86 O2 Sat by Pulse 95 Oximetry 12/25/17 12/25/17 12/25/17 09:00 10:01 11:00 Temperature Pulse Rate 103 H 121 H 109 H Pulse Rate [ Anterior Bilateral Throughout] Respiratory 16 17 19 Rate Respiratory Rate [Anterior Bilateral Throughout] Blood Pressure 136/79 136/79 126/90 O2 Sat by Pulse 94 97 Oximetry 12/25/17 12/25/17 12/25/17 12:00 12:20 12:30 Temperature 98.1 F Pulse Rate 114 H 111 H 108 H Pulse Rate [ Anterior Bilateral Throughout] Respiratory Rate Respiratory Rate [Anterior Bilateral Throughout] Blood Pressure 152/122 123/85 123/85 O2 Sat by Pulse 106 H 98 98 Oximetry 12/25/17 12/25/17 12/25/17 12:40 12:50 13:00 Temperature Pulse Rate 108 H 177 H 103 H Pulse Rate [ Anterior Bilateral Throughout] Respiratory Rate Respiratory Rate [Anterior Bilateral Throughout] Blood Pressure 123/85 123/85 127/82 O2 Sat by Pulse 97 97 99 Oximetry 12/25/17 12/25/17 12/25/17 13:10 13:20 13:23 Temperature Pulse Rate 106 H 108 H 104 H Pulse Rate [ Anterior Bilateral Throughout] Respiratory Rate Respiratory Rate [Anterior Bilateral Throughout] Blood Pressure 127/82 127/82 127/82 O2 Sat by Pulse 98 95 Oximetry 12/25/17 12/25/17 12/25/17 13:30 13:40 13:50 Temperature Pulse Rate 105 H 86 86 Pulse Rate [ Anterior Bilateral Throughout] Respiratory Rate Respiratory Rate [Anterior Bilateral Throughout] Blood Pressure 127/82 123/83 123/83 O2 Sat by Pulse 99 99 Oximetry 12/25/17 12/25/17 12/25/17 14:00 14:10 14:20 Temperature Pulse Rate 88 88 88 Pulse Rate [ Anterior Bilateral Throughout] Respiratory Rate Respiratory Rate [Anterior Bilateral Throughout] Blood Pressure 132/83 132/83 132/83 O2 Sat by Pulse 98 98 99 Oximetry 12/25/17 12/25/17 12/25/17 14:30 14:40 14:50 Temperature Pulse Rate 89 91 H 94 H Pulse Rate [ Anterior Bilateral Throughout] Respiratory Rate Respiratory Rate [Anterior Bilateral Throughout] Blood Pressure 132/83 132/83 132/83 O2 Sat by Pulse 97 99 99 Oximetry 12/25/17 12/25/17 12/25/17 15:00 15:10 15:20 Temperature Pulse Rate 94 H 91 H 90 Pulse Rate [ Anterior Bilateral Throughout] Respiratory Rate Respiratory Rate [Anterior Bilateral Throughout] Blood Pressure 123/102 123/102 123/102 O2 Sat by Pulse 97 99 99 Oximetry 12/25/17 12/25/17 12/25/17 15:30 15:40 15:50 Temperature Pulse Rate 88 87 90 Pulse Rate [ Anterior Bilateral Throughout] Respiratory Rate Respiratory Rate [Anterior Bilateral Throughout] Blood Pressure 123/102 123/102 123/102 O2 Sat by Pulse 99 99 98 Oximetry 12/25/17 16:34 Temperature 98.1 F Pulse Rate 91 H Pulse Rate [ Anterior Bilateral Throughout] Respiratory 18 Rate Respiratory Rate [Anterior Bilateral Throughout] Blood Pressure 131/80 O2 Sat by Pulse 98 Oximetry - Labs CBC & Chem 7: 12/25/17 04:29 12/25/17 04:29 Labs: Abnormal lab results 09/12/25/17 12/25/17 Range/Units 00:45 04:29 04:29 WBC 12.2 H (4.5-11.0) K/mm3 Hgb 9.8 L (11.8-15.2) gm/dl Hct 31.2 L (35.5-45.6) % MCV 82 L (84-94) fl MCH 26 L (28-32) pg MCHC 31 L (32-34) % RDW 19.3 H (13.2-15.2) % Lymph % (Auto) 10.5 L (13.4-35.0) % [place] % (Auto) 12.1 H (0.0-7.3) % [place] # 1.5 H (0.0-0.8) K/mm3 Seg Neutrophils % 75.8 H (40.0-70.0) % Seg Neutrophils # 9.3 H (1.8-7.7) K/mm3 Chloride 96.1 L (98-107) mmol/L Carbon Dioxide 19 L (22-30) mmol/L BUN 75 H (9-20) mg/dL Creatinine 8.5 H (0.8-1.5) mg/dL Glucose 143 H (75-100) mg/dL POC Glucose 155 H (70-105)
--- NOTE | 2017-12-25 17:59 | Consultation ---
History of Present Illness Consult date: 12/25/17 Reason for consult: other (SBO) Requesting physician: PAOLA JAY Chief complaint: abdominal distention - History of present illness History of present illness: 67yo M presented emergency department recently with shortness of breath. He is identified to have bilateral pneumonias. Interviews conducted with the aid of an spanish medical interpreter ([id number]). During this hospitalization, he developed abdominal distention. He reports that has been there for about a week. It is getting better. He has had 2 bowel movements this morning. He has been passing gas. Denies any pain. Denies any nausea vomiting. General surgery has been asked to evaluate for possible bowel obstruction versus ileus. Abdomen is a little larger than normal. Past History Past Medical History: diabetes, hypertension, renal failure Past Surgical History: No surgical history Social history: no significant social history Family history: no significant family history Medications and Allergies Allergies Allergy/AdvReac Type Severity Reaction Status Date / Time No Known Allergies Allergy Verified 12/15/17 17:22 Active Meds: Active Medications Acetaminophen (Tylenol) 650 mg PO Q4H PRN PRN Reason: Pain MILD(1-3)/Fever >100.5/[place] Albuterol (Proventil) 2.5 mg IH Q4HRT PRN PRN Reason: Shortness Of Breath Last Admin: 12/16/17 01:10 Dose: 2.5 mg Albuterol/Ipratropium (Duoneb *Not For Prn Use*) 1 ampul IH TIDRT NIYA Last Admin: 12/25/17 07:26 Dose: 1 ampul Lipase/Protease/Amylase (Char [place] 10,500 Unit) 1 each FEEDTUBE PRN PRN PRN Reason: For Clogged Feeding Tube Haloperidol Lactate (Haldol) 5 mg IV Q6H PRN PRN Reason: Agitation Last Admin: 12/24/17 00:01 Dose: 5 mg Hydralazine HCl (Apresoline) 20 mg IV Q6HR PRN PRN Reason: Hypertension Last Admin: 12/20/17 13:00 Dose: 20 mg Hydrophilic Ointment (Vaseline Lip Therapy) 1 applic TP Q2HR PRN PRN Reason: Dry Lips Heparin Sodium/Sodium Chloride (Heparin/ 0.45% Nacl-25,000 Unit/500 Ml) 25,000 unit in 500 mls @ 23 mls/hr IV TITR [facility]; Protocol Last Titration: 12/25/17 16:39 Dose: 1,050 units/hr, 21 mls/hr Sodium Chloride (Nacl 0.9%) 100 mls @ 999 mls/hr IV MICHAELA PRN PRN Reason: Hypotension Dextrose/Sodium Chloride (D5ns) 1,000 mls @ 42 mls/hr IV DIRECT [facility] Last Admin: 12/24/17 23:03 Dose: 42 mls/hr Insulin Human Lispro (Humalog) 0 unit SUB-Q Q6HR [facility]; Protocol Last Admin: 12/25/17 13:20 Dose: 2 unit Lansoprazole (Prevacid Solutab) 30 mg FEEDTUBE BID [facility] Last Admin: 12/25/17 09:30 Dose: Not Given Metoclopramide HCl (Reglan) 5 mg IV Q6HR [facility] Stop: 12/27/17 06:01 Last Admin: 12/25/17 13:20 Dose: 5 mg Metoprolol Tartrate (Lopressor) 5 mg IV Q8H [facility] Last Admin: 12/25/17 13:23 Dose: 5 mg Multi-Ingred Cream/Lotion/Oil/Oint (Artificial Tears Ophth Oint) 1 applic OU Q4HR PRN PRN Reason: Dry Eye(s) Nitroglycerin (Nitro-Bid 2%) 0.5 inch TP BIDNTG [facility]; Protocol Last Admin: 12/25/17 13:20 Dose: 0.5 inch Ondansetron HCl (Zofran) 4 mg IV Q8H PRN PRN Reason: Nausea And Vomiting Simple Syrup (Simple Syrup) 15 ml FEEDTUBE PRN PRN PRN Reason: Hypoglycemia Simple Syrup (Simple Syrup) 30 ml FEEDTUBE PRN PRN PRN Reason: Hypoglycemia Sodium Bicarbonate (Sodium Bicarbonate) 325 mg FEEDTUBE PRN PRN PRN Reason: For Clogged Feeding Tube Sodium Chloride (Sodium Chloride Flush Syringe 10 Ml) 10 ml IV BID [facility] Last Admin: 12/25/17 13:19 Dose: 10 ml Sodium Chloride (Sodium Chloride Flush Syringe 10 Ml) 10 ml IV PRN PRN PRN Reason: LINE FLUSH Review of Systems - Constitutional no fever, no chills, no chronic pain - Cardiovascular no chest pain - Respiratory no shortness of breath - Gastrointestinal dyspepsia/bloating, no abdominal pain, no nausea, no vomiting, no diarrhea, no constipation, no hematemesis, no coffee ground emesis, no BRBPR, no melena, no hematochezia - Muskuloskeletal no low back pain Exam Vital Signs Pulse Ox 100 12/15/17 17:04 - General physical appearance Positive: no distress, no pain, other (elderly gentleman. NAD. speaks very little. Slight slur in the speech. Appears tired. ) - Respiratory Positive: normal expansion, normal respiratory effort - Cardiovascular Rhythm: regular - Abdomen Abdomen: Present: soft, bowel sounds hypoactive (fluid filled sounds. ), distended. Absent: tender, guarding, rigid, wound, surgical scars - Integumentary no rash, no growths, no abnormal pigmentation - Psychiatric Psychiatric: appropriate mood/affect, intact judgment & insight Results - Labs 12/25/17 04:29 12/25/17 04:29 Abnormal lab results 12/25/17 12/25/17 12/25/17 Range/Units 00:45 04:29 04:29 WBC 12.2 H (4.5-11.0) K/mm3 Hgb 9.8 L (11.8-15.2) gm/dl Hct 31.2 L (35.5-45.6) % MCV 82 L (84-94) fl MCH 26 L (28-32) pg MCHC 31 L (32-34) % RDW 19.3 H (13.2-15.2) % Lymph % (Auto) 10.5 L (13.4-35.0) % [place] % (Auto) 12.1 H (0.0-7.3) % [place] # 1.5 H (0.0-0.8) K/mm3 Seg Neutrophils % 75.8 H (40.0-70.0) % Seg Neutrophils # 9.3 H (1.8-7.7) K/mm3 Chloride 96.1 L (98-107) mmol/L Carbon Dioxide 19 L (22-30) mmol/L BUN 75 H (9-20) mg/dL Creatinine 8.5 H (0.8-1.5) mg/dL Glucose 143 H (75-100) mg/dL POC Glucose 155 H (70-105) Diabetes panel 12/25/17 Range/Units 04:29 Sodium 141 (137-145) mmol/L Potassium 3.9 (3.6-5.0) mmol/L Chloride 96.1 L (98-107) mmol/L Carbon Dioxide 19 L (22-30) mmol/L BUN 75 H (9-20) mg/dL Creatinine 8.5 H (0.8-1.5) mg/dL Glucose 143 H (75-100) mg/dL Calcium 8.7 (8.4-10.2) mg/dL Calcium panel 12/25/17 Range/Units 04:29 Calcium 8.7 (8.4-10.2) mg/dL Pituitary panel 12/25/17 Range/Units 04:29 Sodium 141 (137-145) mmol/L Potassium 3.9 (3.6-5.0) mmol/L Chloride 96.1 L (98-107) mmol/L Carbon Dioxide 19 L (22-30) mmol/L BUN 75 H (9-20) mg/dL Creatinine 8.5 H (0.8-1.5) mg/dL Glucose 143 H (75-100) mg/dL Calcium 8.7 (8.4-10.2) mg/dL Adrenal panel 12/25/17 Range/Units 04:29 Sodium 141 (137-145) mmol/L Potassium 3.9 (3.6-5.0) mmol/L Chloride 96.1 L (98-107) mmol/L Carbon Dioxide 19 L (22-30) mmol/L BUN 75 H (9-20) mg/dL Creatinine 8.5 H (0.8-1.5) mg/dL Glucose 143 H (75-100) mg/dL Calcium 8.7 (8.4-10.2) mg/dL - Imaging Abdominal x-ray: report reviewed, image reviewed CT scan - abdomen: report reviewed, image reviewed CT scan - pelvis: report reviewed, image reviewed Assessment and Plan - Patient Problems (1) Ileus Current Visit: Yes Status: Acute Plan to address problem: Patient is stable. He has no abdominal surgical history. This is most likely reaction to his pneumonias. It appears as though he has been having bowel function and he reports that he is getting better. I agree with the plan for the small bowel follow-through. I would continue with the NG tube decompression. His abdomen is completely benign. We will follow along in his care. Please call if there are any questions. time=40min
[2017-12-26] MEDS: REGLAN IV SCH ×5 (00:49→23:03)
[2017-12-26 04:15] LABS: Hematocrit 28.6 % (35.5-45.6); Hemoglobin 9.3 gm/dl (11.8-15.2); Mean Corpuscular HGB Conc 33 % (32-34); Mean Corpuscular Hemoglobin 27 pg (28-32); Mean Corpuscular Volume 83 fl (84-94); Red Blood Count 3.47 M/mm3 (3.65-5.03); Red Cell Distribution Width 19.5 % (13.2-15.2)
[2017-12-26 04:16] LABS: Basophils # (Auto) 0.1 K/mm3 (0.0-0.1); Eosinophils # (Auto) 0.2 K/mm3 (0.0-0.4); Eosinophils % (Auto) 1.6 % (0.0-4.3); Lymphocytes # (Auto) 1.4 K/mm3 (1.2-5.4); Lymphocytes % (Auto) 11.8 % (13.4-35.0); Monocytes # (Auto) 1.3 K/mm3 (0.0-0.8); Monocytes % (Auto) 10.3 % (0.0-7.3); Platelet Count 380 K/mm3 (140-440)
[2017-12-26] MEDS: LOPRESSOR IV SCH ×3 (05:04→22:58)
[2017-12-26] MEDS: DUONEB *Not for PRN Use IH SCH ×5 (07:05→20:28)
--- NOTE | 2017-12-26 08:42 | Progress Note ---
Assessment and Plan - Patient Problems (1) BALDO (acute kidney injury) Current Visit: Yes Status: Acute Plan to address problem: Likely in the setting of acure cardiorenal syndrome. No signs of renal recovery at this time and patient remains on dialysis, on TTS schedule He has had permcath placed and awaiting outpatient dialysis to be set up. Femoral vascath removed. (2) Acute exacerbation of CHF (congestive heart failure) Current Visit: Yes Status: Acute Qualifiers: Heart failure type: combined systolic and diastolic Qualified Code(s): I50.43 - Acute on chronic combined systolic (congestive) and diastolic ( congestive) heart failure Plan to address problem: Volume status improved with dialysis. 1L UF removed with last HD session on Monday. Plan for HD today. (3) Acidosis, metabolic Current Visit: Yes Status: Acute Plan to address problem: Improved with dialysis. Will continue to monitor. (4) Hyperkalemia Current Visit: Yes Status: Acute Plan to address problem: Improved with clearance provided with dialysis. He is NPO at present. He should be on a low K renal diet when not NPO. Will continue to monitor. (5) Respiratory failure Current Visit: Yes Status: Acute Qualifiers: Chronicity: acute Respiratory failure complication: hypoxia Qualified Code(s): J96.01 - Acute respiratory failure with hypoxia Plan to address problem: Tolerating well with adequate O2 sats on O2 via NC. Further management per respiratory team. (6) Severe anemia Current Visit: Yes Status: Chronic Plan to address problem: improved with transfusions. Will closely monitor. Per primary notes, possible plan for EGD/colonoscopy when stable. Will follow up. Subjective Date of service: 12/26/17 Principal diagnosis: Anemia Interval history: No acute issues overnight. Right femoral cath removed per charts last night. Labs noted. Plan for HD today. Objective - Vital Signs Vital signs: Vital Signs - 12hr 12/25/17 12/26/17 12/26/17 22:15 02:05 05:04 Temperature 97.6 F Pulse Rate 92 H 85 85 Pulse Rate [ Anterior Bilateral Throughout] Respiratory 18 Rate Respiratory Rate [Anterior Bilateral Throughout] Blood Pressure 117/85 160/93 160/93 O2 Sat by Pulse 96 Oximetry 12/26/17 12/26/17 07:07 08:00 Temperature Pulse Rate 88 Pulse Rate [ 94 H Anterior Bilateral Throughout] Respiratory Rate Respiratory 18 Rate [Anterior Bilateral Throughout] Blood Pressure O2 Sat by Pulse 96 Oximetry - General Appearance General appearance: well-developed, well-nourished, appears stated age, chronically ill EENT: ATNC, PERRL Neck: no JVD, no thyromegaly, supple Respiratory: Present: Clear to Ascultation Cardiology: regular, S1S2 Gastrointestinal: normal Integumentary: no rash, warm and dry Neurologic: no focal deficit Musculoskeletal: other (-edema ) Psychiatric: cooperative - Lab 12/26/17 03:29 12/26/17 03:29 Most recent lab results Calcium 9.0 mg/dL (8.4-10.2) 12/26/17 03:29 Phosphorus 11.90 mg/dL (2.5-4.5) H 12/19/17 05:10 Urine Creatinine 81.7 mg/dL (0.1-20.0) H 12/16/17 12:05 Urine Sodium 62 mmol/L 12/16/17 12:05 Urine Total Protein 493 mg/dL (5-11.8) H 12/16/17 12:05 - Allied health notes Allied health notes reviewed: nursing
--- NOTE | 2017-12-26 09:21 | Progress Note ---
Assessment and Plan - Patient Problems (1) Ileus Current Visit: Yes Status: Acute Plan to address problem: Patient is stable. He has no abdominal surgical history. This is most likely reaction to his pneumonias. Await results of SBFT today. I would continue with the NG tube decompression. His abdomen is completely benign. We will follow along in his care. Please call if there are any questions. time=10min Subjective Date of service: 12/26/17 Patient Reports: Positive: no new complaints, no bowel movement, other (Pt denies pain. Staff reports no pain meds given. Scheduled for SBFT this AM. ) Objective Vital Signs - 12hr 12/25/17 12/26/17 12/26/17 22:15 02:05 05:04 Temperature 97.6 F Pulse Rate 92 H 85 85 Pulse Rate [ Anterior Bilateral Throughout] Respiratory 18 Rate Respiratory Rate [Anterior Bilateral Throughout] Blood Pressure 117/85 160/93 160/93 O2 Sat by Pulse 96 Oximetry 12/26/17 12/26/17 12/26/17 07:07 07:59 08:00 Temperature 98.4 F Pulse Rate 87 88 Pulse Rate [ 94 H Anterior Bilateral Throughout] Respiratory 20 Rate Respiratory 18 Rate [Anterior Bilateral Throughout] Blood Pressure 137/84 O2 Sat by Pulse 96 97 Oximetry - General physical appearance no distress, no pain, other (resting comfortably) - Respiratory normal expansion, normal respiratory effort - Abdomen soft, not tender, distended, other (NGT clamped) - Labs 12/26/17 03:29 12/26/17 03:29 Diabetes panel 12/26/17 Range/Units 03:29 Sodium 140 (137-145) mmol/L Potassium 3.7 (3.6-5.0) mmol/L Chloride 92.7 L (98-107) mmol/L Carbon Dioxide 18 L (22-30) mmol/L BUN 90 H (9-20) mg/dL Creatinine 10.2 H (0.8-1.5) mg/dL Glucose 104 H (75-100) mg/dL Calcium 9.0 (8.4-10.2) mg/dL Calcium panel 12/26/17 Range/Units 03:29 Calcium 9.0 (8.4-10.2) mg/dL Pituitary panel 12/26/17 Range/Units 03:29 Sodium 140 (137-145) mmol/L Potassium 3.7 (3.6-5.0) mmol/L Chloride 92.7 L (98-107) mmol/L Carbon Dioxide 18 L (22-30) mmol/L BUN 90 H (9-20) mg/dL Creatinine 10.2 H (0.8-1.5) mg/dL Glucose 104 H (75-100) mg/dL Calcium 9.0 (8.4-10.2) mg/dL Adrenal panel 12/26/17 Range/Units 03:29 Sodium 140 (137-145) mmol/L Potassium 3.7 (3.6-5.0) mmol/L Chloride 92.7 L (98-107) mmol/L Carbon Dioxide 18 L (22-30) mmol/L BUN 90 H (9-20) mg/dL Creatinine 10.2 H (0.8-1.5) mg/dL Glucose 104 H (75-100) mg/dL Calcium 9.0 (8.4-10.2) mg/dL
--- NOTE | 2017-12-26 09:23 | Progress Note ---
Assessment and Plan Acute respiratory failure now extubated Acute on chronic renal failure s/p urgent dialysis Anemia s/p transfusion of PRBCs Acute systolic heart failure EF 40-45% by echo Hypertension Acute right iliac DVT on IV heparin Ileus vs partial small bowel obstruction Conservative cardiac management. Subjective Date of service: 12/26/17 Principal diagnosis: Anemia Interval history: Patient is resting in bed comfortably. He denies chest pain. No distress noted. Objective Vital Signs Temp Pulse Pulse Pulse Resp Resp BP 12/26/17 08:00 88 12/26/17 07:59 98.4 F 87 20 137/84 12/26/17 07:07 94 H 18 12/26/17 05:04 85 160/93 12/26/17 02:05 97.6 F 85 18 160/93 12/25/17 22:15 92 H 117/85 12/25/17 20:00 92 H 92 H 16 12/25/17 19:13 98.3 F 92 H 16 117/85 12/25/17 16:34 98.1 F 91 H 18 131/80 12/25/17 16:00 98.6 F 12/25/17 15:50 90 123/102 12/25/17 15:40 87 123/102 12/25/17 15:30 88 123/102 12/25/17 15:20 90 123/102 12/25/17 15:10 91 H 123/102 12/25/17 15:00 94 H 123/102 12/25/17 14:50 94 H 132/83 12/25/17 14:40 91 H 132/83 12/25/17 14:30 89 132/83 12/25/17 14:20 88 132/83 12/25/17 14:10 88 132/83 12/25/17 14:00 88 132/83 12/25/17 13:50 86 123/83 12/25/17 13:40 86 123/83 12/25/17 13:30 105 H 127/82 12/25/17 13:23 104 H 127/82 12/25/17 13:20 108 H 127/82 12/25/17 13:10 106 H 127/82 12/25/17 13:00 103 H 127/82 12/25/17 12:50 177 H 123/85 12/25/17 12:40 108 H 123/85 12/25/17 12:30 108 H 123/85 12/25/17 12:20 111 H 123/85 12/25/17 12:00 98.1 F 114 H 152/122 12/25/17 11:00 109 H 19 126/90 12/25/17 10:01 121 H 17 136/79 Pulse Ox 12/26/17 08:00 12/26/17 07:59 97 12/26/17 07:07 96 12/26/17 05:04 12/26/17 02:05 96 12/25/17 22:15 12/25/17 20:00 97 12/25/17 19:13 97 12/25/17 16:34 98 12/25/17 16:00 12/25/17 15:50 98 12/25/17 15:40 99 12/25/17 15:30 99 12/25/17 15:20 99 12/25/17 15:10 99 12/25/17 15:00 97 12/25/17 14:50 99 12/25/17 14:40 99 12/25/17 14:30 97 12/25/17 14:20 99 12/25/17 14:10 98 12/25/17 14:00 98 12/25/17 13:50 99 12/25/17 13:40 99 12/25/17 13:30 12/25/17 13:23 12/25/17 13:20 95 12/25/17 13:10 98 12/25/17 13:00 99 12/25/17 12:50 97 12/25/17 12:40 97 12/25/17 12:30 98 12/25/17 12:20 98 12/25/17 12:00 106 H 12/25/17 11:00 97 12/25/17 10:01 - Physical Examination General: No Apparent Distress HEENT: Positive: PERRL Cardiac: Positive: Reg Rate and Rhythm Lungs: Positive: Decreased Breath Sounds Extremities: Absent: edema - Labs and Meds CBC 12/26/17 Range/Units 03:29 WBC 12.2 H (4.5-11.0) K/mm3 RBC 3.47 L (3.65-5.03) M/mm3 Hgb 9.3 L (11.8-15.2) gm/dl Hct 28.6 L (35.5-45.6) % Plt Count 380 (140-440) K/mm3 Lymph # 1.4 (1.2-5.4) K/mm3 [place] # 1.3 H (0.0-0.8) K/mm3 Eos # 0.2 (0.0-0.4) K/mm3 Baso # 0.1 (0.0-0.1) K/mm3 Comprehensive Metabolic Panel 12/26/17 Range/Units 03:29 Sodium 140 (137-145) mmol/L Potassium 3.7 (3.6-5.0) mmol/L Chloride 92.7 L (98-107) mmol/L Carbon Dioxide 18 L (22-30) mmol/L BUN 90 H (9-20) mg/dL Creatinine 10.2 H (0.8-1.5) mg/dL Glucose 104 H (75-100) mg/dL Calcium 9.0 (8.4-10.2) mg/dL - Allied health notes Allied health notes reviewed: nursing
[2017-12-26] MEDS: HEPARIN/ 0.45% NACL-25,000 UNIT/500 ML 25,000 UNIT/500 ML BAG IV SCH (09:46)
--- NOTE | 2017-12-26 14:10 | Gastroenterology Progress Note ---
<EDUARD RODRIGUEZ - Last Filed: 12/26/17 14:12> Assessment and Plan 1.iron deficiency anemia -H/H stable -no active signs of bleeding (on heparin drip) -will need eventual GI workup once medically stable and able to tolerate colon prep (given current abdominal exam will hold for now) 2.abdominal distention -KUB shows ileus vs partial small bowel obstruction -SBFT pending for today for further evaluation -surgery following with no surgical intervention recommended at this time -clinically, patient denies abd pain or N/V. BM x 2 yesterday -continue NG tube to LIS -limit narcotics -encourage OOB -continue supportive care -further recommendations to follow Subjective Date of service: 12/26/17 Principal diagnosis: Anemia Interval history: No acute distress. Abdomen remains distended. NG tube in place. No active signs of bleeding. Denies abd pain or N/V. Objective - Constitutional Vitals: Temp Pulse Resp BP Pulse Ox 98.4 F 88 20 137/84 97 12/26/17 07:59 12/26/17 08:00 12/26/17 07:59 12/26/17 07:59 12/26/17 07:59 General appearance: no acute distress - Respiratory Respiratory: bilateral: diminished - Cardiovascular Rhythm: regular Heart Sounds: Present: S1 & S2 - Gastrointestinal General gastrointestinal: Present: soft, non-tender, distended, hypoactive bowel sounds - Labs CBC & Chem 7: 12/26/17 03:29 12/26/17 03:29 Labs: Laboratory Results - last 24 hr 12/25/17 12/25/17 12/25/17 05:19 12:02 15:54 WBC RBC Hgb Hct MCV MCH MCHC RDW Plt Count Lymph % (Auto) [place] % (Auto) Eos % (Auto) Baso % (Auto) Lymph # [place] # Eos # Baso # Seg Neutrophils % Seg Neutrophils # Heparin Anti-Xa Level 0.30 Sodium Potassium Chloride Carbon Dioxide Anion Gap BUN Creatinine Estimated GFR BUN/Creatinine Ratio Glucose POC Glucose 145 H 189 H Calcium 12/25/17 12/26/17 12/26/17 22:36 00:08 03:29 WBC 12.2 H RBC 3.47 L Hgb 9.3 L Hct 28.6 L MCV 83 L MCH 27 L MCHC 33 RDW 19.5 H Plt Count 380 Lymph % (Auto) 11.8 L [place] % (Auto) 10.3 H Eos % (Auto) 1.6 Baso % (Auto) 1.0 Lymph # 1.4 [place] # 1.3 H Eos # 0.2 Baso # 0.1 Seg Neutrophils % 75.3 H Seg Neutrophils # 9.2 H Heparin Anti-Xa Level 1.29 H Sodium Potassium Chloride Carbon Dioxide Anion Gap BUN Creatinine Estimated GFR BUN/Creatinine Ratio Glucose POC Glucose 115 H Calcium 12/26/17 12/26/17 03:29 07:48 WBC RBC Hgb Hct MCV MCH MCHC RDW Plt Count Lymph % (Auto) [place] % (Auto) Eos % (Auto) Baso % (Auto) Lymph # [place] # Eos # Baso # Seg Neutrophils % Seg Neutrophils # Heparin Anti-Xa Level 0.42 Sodium 140 Potassium 3.7 Chloride 92.7 L Carbon Dioxide 18 L Anion Gap 33 BUN 90 H Creatinine 10.2 H Estimated GFR 5 BUN/Creatinine Ratio 9 Glucose 104 H POC Glucose Calcium 9.0 <LYSSA LEARY - Last Filed: 12/26/17 15:53> Assessment and Plan Pt seen and examined. His abd exam is less distended today. will await SBFT. If no significant findings, restart po trial Objective - Constitutional Vitals: Temp Pulse Resp BP Pulse Ox 97.1 F L 77 20 156/87 98 12/26/17 13:34 12/26/17 13:34 12/26/17 13:34 12/26/17 13:34 12/26/17 13:34 - Labs CBC & Chem 7: 12/26/17 03:29 12/26/17 03:29 Labs: Laboratory Results - last 24 hr 12/25/17 12/25/17 12/25/17 05:19 12:02 15:54 WBC RBC Hgb Hct MCV MCH MCHC RDW Plt Count Lymph % (Auto) [place] % (Auto) Eos % (Auto) Baso % (Auto) Lymph # [place] # Eos # Baso # Seg Neutrophils % Seg Neutrophils # Heparin Anti-Xa Level 0.30 Sodium Potassium Chloride Carbon Dioxide Anion Gap BUN Creatinine Estimated GFR BUN/Creatinine Ratio Glucose POC Glucose 145 H 189 H Calcium 12/25/17 12/26/17 12/26/17 22:36 00:08 03:29 WBC 12.2 H RBC 3.47 L Hgb 9.3 L Hct 28.6 L MCV 83 L MCH 27 L MCHC 33 RDW 19.5 H Plt Count 380 Lymph % (Auto) 11.8 L [place] % (Auto) 10.3 H Eos % (Auto) 1.6 Baso % (Auto) 1.0 Lymph # 1.4 [place] # 1.3 H Eos # 0.2 Baso # 0.1 Seg Neutrophils % 75.3 H Seg Neutrophils # 9.2 H Heparin Anti-Xa Level 1.29 H Sodium Potassium Chloride Carbon Dioxide Anion Gap BUN Creatinine Estimated GFR BUN/Creatinine Ratio Glucose POC Glucose 115 H Calcium 12/26/17 12/26/17 03:29 07:48 WBC RBC Hgb Hct MCV MCH MCHC RDW Plt Count Lymph % (Auto) [place] % (Auto) Eos % (Auto) Baso % (Auto) Lymph # [place] # Eos # Baso # Seg Neutrophils % Seg Neutrophils # Heparin Anti-Xa Level 0.42 Sodium 140 Potassium 3.7 Chloride 92.7 L Carbon Dioxide 18 L Anion Gap 33 BUN 90 H Creatinine 10.2 H Estimated GFR 5 BUN/Creatinine Ratio 9 Glucose 104 H POC Glucose Calcium 9.0
--- NOTE | 2017-12-26 17:49 | Progress Note ---
Assessment and Plan Assessment and plan: Ileus -No surgical intervention per surgery team -We'll monitor clinically Acute Right LE DVT -cont on heparin drip - monitor h and h Acute respiratory failure with hypoxia -likely due to pulmonary edema from renal failure - required intubation with MV - Off steroids - ABG improved - pulmonology following - s/p extubation on 12/21/17 - cont nebs and supplemental O2 Sepsis likely from PNA, resolved -treated with IV abx, -blood cultures negative so far Bilateral pneumonia -treated with abx -blood and sputum culture neg BALDO 2/2 acute on chronic cardio renal syndrome, ischemic ATN in the setting of severe anemia and sepsis -H/O CKD suspected -on HD since admission -Neprology following - s/p perm cath placed Hyperkalemia/hypokalemia -Resolved Severe anemia, probably sec to CKD/ESRD -s/p blood transfusion with 4 units of PRBC -s/p CT abdomen and pelvis to assess for acute bleed, but no active source per GI -stable H&H post transfusion -Small bowel follow through completed, report pending Acute exacerbation of CHF (congestive heart failure), suspected -2d ECHO report showed EF 40-45% -cont volume removal by increased Ultrafiltration Elevated troponin probably secondary to demand ischemia -On medical management -Cardiology following HTN -Controlled on meds. GI prophylaxis on Protonix Disposition: For discharge when medically stable History Interval history: Patient has no complaints. He denied chest pain, shortness of breath or abdominal pain. Hospitalist Physical - Constitutional Vitals: Temp Pulse Resp BP Pulse Ox 97.1 F L 90 18 135/80 98 12/26/17 15:10 12/26/17 16:00 12/26/17 15:10 12/26/17 16:00 12/26/17 13:34 General appearance: Present: no acute distress - EENT Eyes: Present: PERRL, EOM intact ENT: hearing intact, clear oral mucosa - Neck Neck: Present: supple - Respiratory Respiratory effort: normal Respiratory: bilateral: diminished - Cardiovascular Rhythm: regular Heart Sounds: Present: S1 & S2 - Extremities Extremities: No edema - Abdominal General gastrointestinal: soft, non-tender, normal bowel sounds - Neurologic Neurologic: CNII-XII intact Results - Labs CBC & Chem 7: 12/26/17 03:29 12/26/17 03:29 Labs: Laboratory Last Values WBC 12.2 K/mm3 (4.5-11.0) H 12/26/17 03:29 RBC 3.47 M/mm3 (3.65-5.03) L 12/26/17 03:29 Hgb 9.3 gm/dl (11.8-15.2) L 12/26/17 03:29 Hct 28.6 % (35.5-45.6) L 12/26/17 03: MCV 83 fl (84-94) L 12/26/17 03: MCH 27 pg (28-32) L 12/26/17 03: MCHC 33 % (32-34) 12/26/17 03: RDW 19.5 % (13.2-15.2) H 12/26/17 03:29 Plt Count 380 K/mm3 (140-440) 12/26/17 03:29 Lymph % (Auto) 11.8 % (13.4-35.0) L 12/26/17 03: [place] % (Auto) 10.3 % (0.0-7.3) H 12/26/17 03:29 Eos % (Auto) 1.6 % (0.0-4.3) 12/26/17 03: Baso % (Auto) 1.0 % (0.0-1.8) 12/26/17 03: Lymph # 1.4 K/mm3 (1.2-5.4) 12/26/17 03:29 [place] # 1.3 K/mm3 (0.0-0.8) H 12/26/17 03:29 Eos # 0.2 K/mm3 (0.0-0.4) 12/26/17 03:29 Baso # 0.1 K/mm3 (0.0-0.1) 12/26/17 03:29 Add Manual Diff Complete 12/21/17 04:45 Total Counted 100 12/21/17 04:45 Seg Neutrophils % 75.3 % (40.0-70.0) H 12/26/17 03:29 Seg Neuts % (Manual) 84.0 % (40.0-70.0) H 12/21/17 04:45 Band Neutrophils % 0 % 12/21/17 04:45 Lymphocytes % (Manual) 6.0 % (13.4-35.0) L 12/21/17 04:45 Reactive Lymphs % (Man) 0 % 12/21/17 04:45 Monocytes % (Manual) 9.0 % (0.0-7.3) H 12/21/17 04:45 Eosinophils % (Manual) 1.0 % (0.0-4.3) 12/21/17 04:45 Basophils % (Manual) 0 % (0.0-1.8) 12/21/17 04:45 Metamyelocytes % 0 % 12/21/17 04:45 Myelocytes % 0 % 12/21/17 04:45 Promyelocytes % 0 % 12/21/17 04:45 Blast Cells % 0 % 12/21/17 04:45 Nucleated RBC % Not Reportable 12/21/17 04:45 Seg Neutrophils # 9.2 K/mm3 (1.8-7.7) H 12/26/17 03:29 Seg Neutrophils # Man 11.5 K/mm3 (1.8-7.7) H 12/21/17 04:45 Band Neutrophils # 0.0 K/mm3 12/21/17 04:45 Lymphocytes # (Manual) 0.8 K/mm3 (1.2-5.4) L 12/21/17 04:45 Abs React Lymphs (Man) 0.0 K/mm3 12/21/17 04:45 Monocytes # (Manual) 1.2 K/mm3 (0.0-0.8) H 12/21/17 04:45 Eosinophils # (Manual) 0.1 K/mm3 (0.0-0.4) 12/21/17 04:45 Basophils # (Manual) 0.0 K/mm3 (0.0-0.1) 12/21/17 04:45 Metamyelocytes # 0.0 K/mm3 12/21/17 04:45 Myelocytes # 0.0 K/mm3 12/21/17 04:45 Promyelocytes # 0.0 K/mm3 12/21/17 04:45 Blast Cells # 0.0 K/mm3 12/21/17 04:45 WBC Morphology Not Reportable 12/21/17 04:45 Hypersegmented Neuts Not Reportable 12/21/17 04:45 Hyposegmented Neuts Not Reportable 12/21/17 04:45 Hypogranular Neuts Not Reportable 12/21/17 04:45 Smudge Cells Not Reportable 12/21/17 04:45 Toxic Granulation Not Reportable 12/21/17 04:45 Toxic Vacuolation Not Reportable 12/21/17 04:45 Dohle Bodies Not Reportable 12/21/17 04:45 Pelger-Huet Anomaly Not Reportable 12/21/17 04:45 Td Rods Not Reportable 12/21/17 04:45 Platelet Estimate Consistent w auto 12/21/17 04:45 Clumped Platelets Not Reportable 12/21/17 04:45 Plt Clumps, EDTA Not Reportable 12/21/17 04:45 Large Platelets Not Reportable 12/21/17 04:45 Giant Platelets Not Reportable 12/21/17 04:45 Platelet Satelliting Not Reportable 12/21/17 04:45 Plt Morphology Comment Not Reportable 12/21/17 04:45 RBC Morphology Not Reportable 12/21/17 04:45 Dimorphic RBCs Not Reportable 12/21/17 04:45 Polychromasia Not Reportable 12/21/17 04:45 Hypochromasia Not Reportable 12/21/17 04:45 Poikilocytosis Few 12/21/17 04:45 Anisocytosis 2+ 12/21/17 04:45 Microcytosis 1+ 12/21/17 04:45 Macrocytosis Not Reportable 12/21/17 04:45 Spherocytes Not Reportable 12/21/17 04:45 Pappenheimer Bodies Not Reportable 12/21/17 04:45 Sickle Cells Not Reportable 12/21/17 04:45 Target Cells Not Reportable 12/21/17 04:45 Tear Drop Cells Not Reportable 12/21/17 04:45 Ovalocytes Not Reportable 12/21/17 04:45 Helmet Cells Not Reportable 12/21/17 04:45 Araiza-Amo Bodies Not Reportable 12/21/17 04:45 Rippey Rings Not Reportable 12/21/17 04:45 Rudolph Cells Not Reportable 12/21/17 04:45 Bite Cells Not Reportable 12/21/17 04:45 Crenated Cell Not Reportable 12/21/17 04:45 Elliptocytes Not Reportable 12/21/17 04:45 Acanthocytes (Spur) Not Reportable 12/21/17 04:45 Rouleaux Not Reportable 12/21/17 04:45 Hemoglobin C Crystals Not Reportable 12/21/17 04:45 Schistocytes Not Reportable 12/21/17 04:45 Malaria parasites Not Reportable 12/21/17 04:45 [place] Bodies Not Reportable 12/21/17 04:45 Hem Pathologist Commnt No 12/21/17 04:45 PT 14.3 Sec. (12.2-14.9) 12/19/17 19:17 INR 1.05 (0.87-1.13) 12/19/17 19:17 APTT 27.9 Sec. (24.2-36.6) 12/19/17 19:17 D-Dimer 1108.83 ng/mlDDU (0-234) H 12/15/17 17:16 Heparin Anti-Xa Level 0.42 U.I./ml (0.3-0.7) 12/26/17 07:48 POC ABG pH 7.446 (7.35-7.45) 12/21/17 03:44 POC ABG pCO2 27.6 (35-45) L 12/21/17 03:44 POC ABG pO2 90 (80-105) 12/21/17 03:44 POC ABG HCO3 19.0 12/21/17 03:44 POC ABG Total CO2 20 12/21/17 03:44 POC ABG O2 Sat 97 12/21/17 03:44 POC ABG Base Excess -5 12/21/17 03:44 VBG pH 7.204 (7.320-7.420) L 12/15/17 18:01 FiO2 30 % 12/21/17 03:44 Sodium 140 mmol/L (137-145) 12/26/17 03:29 Potassium 3.7 mmol/L (3.6-5.0) 12/26/17 03:29 Chloride 92.7 mmol/L (98-107) L 12/26/17 03:29 Carbon Dioxide 18 mmol/L (22-30) L 12/26/17 03:29 Anion Gap 33 mmol/L 12/26/17 03:29 BUN 90 mg/dL (9-20) H 12/26/17 03:29 Creatinine 10.2 mg/dL (0.8-1.5) H 12/26/17 03:29 Estimated GFR 5 ml/min 12/26/17 03:29 BUN/Creatinine Ratio 9 % 12/26/17 03:29 Glucose 104 mg/dL (75-100) H 12/26/17 03:29 POC Glucose 115 (70-105) H 12/26/17 00:08 Hemoglobin A1c < 4.2 % (4-6) 12/15/17 17:16 Lactic Acid 1.40 mmol/L (0.7-2.0) 12/15/17 17:16 Calcium 9.0 mg/dL (8.4-10.2) 12/26/17 03:29 Phosphorus 11.90 mg/dL (2.5-4.5) H 12/19/17 05:10 Iron 37 ug/dL (49-181) L 12/16/17 00:24 TIBC 416 mcg/dL (250-450) 12/16/17 00:24 Ferritin 16.1 ng/mL (13.0-400.0) 12/16/17 00:24 Total Bilirubin 0.20 mg/dL (0.1-1.2) 12/16/17 03:43 AST 20 units/L (5-40) 12/16/17 03:43 ALT 15 units/L (7-56) 12/16/17 03:43 Alkaline Phosphatase 51 units/L (35-129) 12/16/17 03:43 Total Creatine Kinase 736 units/L (55-170) H 12/15/17 17:16 CK-MB (CK-2) 7.7 ng/mL (0.0-4.0) H 12/15/17 17:16 CK-MB (CK-2) Rel Index 1.0 (0-4) 12/15/17 17:16 Troponin T 0.067 ng/mL (0.00-0.029) H 12/15/17 17:16 NT-Pro-B Natriuret Pep 41800 pg/mL (0-900) H 12/15/17 17:16 Total Protein 6.4 g/dL (6.3-8.2) 12/16/17 03:43 Albumin 3.6 g/dL (3.9-5) L 12/16/17 03:43 Albumin/Globulin Ratio 1.3 % 12/16/17 03:43 Triglycerides 440 mg/dL (2-149) H 12/19/17 05:10 Cholesterol 163 mg/dL (50-199) 12/15/17 17:16 LDL Cholesterol Direct 102 mg/dL (50-130) 12/15/17 17:16 HDL Cholesterol 29 mg/dL (40-59) L 12/15/17 17:16 Cholesterol/HDL Ratio 5.62 % 12/15/17 17:16 Vitamin B12 221.6 pg/mL (211-911) 12/16/17 00:24 Folate 14.63 ng/mL (7.3-26.0) 12/16/17 00:24 Urine Color Yellow (Yellow) 12/16/17 12:05 Urine Turbidity Cloudy (Clear) 12/16/17 12:05 Urine pH 5.0 (5.0-7.0) 12/16/17 12:05 Ur Specific [place] 1.012 (1.003-1.030) 12/16/17 12:05 Urine Protein >500 mg/dL (Negative) 12/16/17 12:05 Urine Glucose (UA) 50 mg/dL (Negative) 12/16/17 12:05 Urine Ketones Neg mg/dL (Negative) 12/16/17 12:05 Urine Blood Mod (Negative) 12/16/17 12:05 Urine Nitrite Neg (Negative) 12/16/17 12:05 Urine Bilirubin Neg (Negative) 12/16/17 12:05 Urine Urobilinogen < 2.0 mg/dL (<2.0) 12/16/17 12:05 Ur Leukocyte Esterase Lg (Negative) 12/16/17 12:05 Urine WBC (Auto) > 182.0 /HPF (0.0-6.0) H 12/16/17 12:05 Urine RBC (Auto) 30.0 /HPF (0.0-6.0) 12/16/17 12:05 U Epithel Cells (Auto) 1.0 /HPF (0-13.0) 12/16/17 12:05 Urine Bacteria (Auto) 1+ /HPF (Negative) 12/16/17 12:05 Urine WBC Clumps 3+ /HPF 12/16/17 12:05 Urine Mucus 1+ /HPF 12/16/17 12:05 Urine Creatinine 81.7 mg/dL (0.1-20.0) H 12/16/17 12:05 Urine Sodium 62 mmol/L 12/16/17 12:05 Urine Total Protein 493 mg/dL (5-11.8) H 12/16/17 12:05 Urine Opiates Screen Presumptive negative 12/16/17 12:05 Urine Methadone Screen Presumptive negative 12/16/17 12:05 Ur Barbiturates Screen Presumptive negative 12/16/17 12:05 Ur Phencyclidine Scrn Presumptive negative 12/16/17 12:05 Ur Amphetamines Screen Presumptive negative 12/16/17 12:05 U Benzodiazepines Scrn Presumptive positive 12/16/17 12:05 Urine Cocaine Screen Presumptive negative 12/16/17 12:05 U Marijuana (THC) Screen Presumptive negative 12/16/17 12:05 Drugs of Abuse Note Disclamer 12/16/17 12:05 Hepatitis A IgM Ab Nonreactive (NonReactive) 12/16/17 04:47 Hep Bs Antigen Non-reactive (Negative) 12/16/17 04:47 Hep B Core IgM Ab Non-reactive (NonReactive) 12/16/17 04:47 Hepatitis C Antibody Non-reactive (NonReactive) 12/16/17 04:47 Blood Type A POSITIVE 12/15/17 17:45 Antibody Screen Negative 12/15/17 17:45 Crossmatch See Detail 12/15/17 17:45
--- NOTE | 2017-12-26 17:53 | Progress Note ---
Assessment and Plan 67 y/o male with acute respiratory failure secondary to pulmonary edema, likely from acute renal failure and found to be profoundly anemic on admission. 1. Pulm status stable. Will see as needed. Subjective Date of service: 12/26/17 Principal diagnosis: Anemia Interval history: Successful transfer out of ICU. Pulm status stable. Sat is 96 on 2 Liters. Still with SBO vs Ileus. Objective Vital Signs - 12hr 12/26/17 12/26/17 12/26/17 07:07 07:59 08:00 Temperature 98.4 F Pulse Rate 87 88 Pulse Rate [ 94 H Anterior Bilateral Throughout] Respiratory 20 Rate Respiratory 18 Rate [Anterior Bilateral Throughout] Blood Pressure 137/84 O2 Sat by Pulse 96 97 Oximetry 12/26/17 12/26/17 12/26/17 13:34 15:10 15:15 Temperature 97.1 F L 97.1 F L Pulse Rate 77 74 81 Pulse Rate [ Anterior Bilateral Throughout] Respiratory 20 18 Rate Respiratory Rate [Anterior Bilateral Throughout] Blood Pressure 156/87 144/82 146/88 O2 Sat by Pulse 98 Oximetry 12/26/17 12/26/17 12/26/17 15:30 15:45 16:00 Temperature Pulse Rate 82 79 90 Pulse Rate [ Anterior Bilateral Throughout] Respiratory Rate Respiratory Rate [Anterior Bilateral Throughout] Blood Pressure 118/83 140/79 135/80 O2 Sat by Pulse Oximetry Constitutional: no acute distress, alert ENT: other (NG tube in place) Neck: supple Effort: normal Ascultation: Bilateral: clear, diminished breath sounds Percussion: Bilateral: not dull Cardiovascular: regular rate and rhythm Gastrointestinal: normoactive bowel sounds, soft, non-tender, other (no rebound tenderness, bowel sounds present,still looks somewhat distended) Integumentary: normal Extremities: no edema, pink and warm, pulses normal Neurologic: normal mental status, non-focal exam, pupils equal and round CBC and BMP: 12/26/17 03:29 12/26/17 03:29 ABG, PT/INR, D-dimer: ABG POC ABG pH 7.446 (7.35-7.45) 12/21/17 03:44 POC ABG pCO2 27.6 (35-45) L 12/21/17 03:44 POC ABG pO2 90 (80-105) 12/21/17 03:44 POC ABG HCO3 19.0 12/21/17 03:44 POC ABG Total CO2 20 12/21/17 03:44 POC ABG O2 Sat 97 12/21/17 03:44 PT/INR, D-dimer PT 14.3 Sec. (12.2-14.9) 12/19/17 19:17 INR 1.05 (0.87-1.13) 12/19/17 19:17 D-Dimer 1108.83 ng/mlDDU (0-234) H 12/15/17 17:16 Abnormal lab findings: Abnormal Labs 12/15/17 12/15/17 12/15/17 17:16 17:16 17:16 WBC 16.7 H RBC 2.12 L Hgb 4.9 L* Hct 16.0 L* MCV 76 L MCH 23 L MCHC 30 L RDW 17.3 H Plt Count 445 H Lymph % (Auto) 11.3 L [place] % (Auto) 7.4 H [place] # 1.2 H Seg Neutrophils % 80.2 H Seg Neuts % (Manual) Lymphocytes % (Manual) Monocytes % (Manual) Seg Neutrophils # 13.4 H Seg Neutrophils # Man Lymphocytes # (Manual) Monocytes # (Manual) D-Dimer 1108.83 H Heparin Anti-Xa Level POC ABG pH POC ABG pCO2 POC ABG pO2 VBG pH Sodium Potassium 5.1 H Chloride Carbon Dioxide 18 L BUN 76 H Creatinine 7.1 H Glucose 148 H POC Glucose Calcium 8.2 L Phosphorus Iron Total Creatine Kinase 736 H CK-MB (CK-2) 7.7 H Troponin T 0.067 H NT-Pro-B Natriuret Pep Albumin Triglycerides 206 H HDL Cholesterol 29 L Urine WBC (Auto) Urine Creatinine Urine Total Protein Crossmatch 12/15/17 12/15/17 12/15/17 17:16 17:45 18:01 WBC RBC Hgb Hct MCV MCH MCHC RDW Plt Count Lymph % (Auto) [place] % (Auto) [place] # Seg Neutrophils % Seg Neuts % (Manual) Lymphocytes % (Manual) Monocytes % (Manual) Seg Neutrophils # Seg Neutrophils # Man Lymphocytes # (Manual) Monocytes # (Manual) D-Dimer Heparin Anti-Xa Level POC ABG pH POC ABG pCO2 POC ABG pO2 VBG pH 7.204 L Sodium Potassium Chloride Carbon Dioxide BUN Creatinine Glucose POC Glucose Calcium Phosphorus Iron Total Creatine Kinase CK-MB (CK-2) Troponin T NT-Pro-B Natriuret Pep 98404 H Albumin Triglycerides HDL Cholesterol Urine WBC (Auto) Urine Creatinine Urine Total Protein Crossmatch See Detail 12/15/17 12/15/17 12/16/17 18:32 23:26 00:24 WBC RBC Hgb Hct MCV MCH MCHC RDW Plt Count Lymph % (Auto) [place] % (Auto) [place] # Seg Neutrophils % Seg Neuts % (Manual) Lymphocytes % (Manual) Monocytes % (Manual) Seg Neutrophils # Seg Neutrophils # Man Lymphocytes # (Manual) Monocytes # (Manual) D-Dimer Heparin Anti-Xa Level POC ABG pH 7.324 L 7.142 L POC ABG pCO2 33.6 L 50.4 H POC ABG pO2 110 H 107 H VBG pH Sodium Potassium Chloride Carbon Dioxide BUN Creatinine Glucose POC Glucose Calcium Phosphorus Iron 37 L Total Creatine Kinase CK-MB (CK-2) Troponin T NT-Pro-B Natriuret Pep Albumin Triglycerides HDL Cholesterol Urine WBC (Auto) Urine Creatinine Urine Total Protein Crossmatch 12/16/17 12/16/17 12/16/17 03:41 03:43 03:43 WBC 16.3 H RBC 3.01 L Hgb 7.5 L Hct 24.3 L D MCV 81 L MCH 25 L MCHC 31 L RDW 17.7 H Plt Count Lymph % (Auto) 7.9 L [place] % (Auto) 7.8 H [place] # 1.3 H Seg Neutrophils % 83.7 H Seg Neuts % (Manual) Lymphocytes % (Manual) Monocytes % (Manual) Seg Neutrophils # 13.7 H Seg Neutrophils # Man Lymphocytes # (Manual) Monocytes # (Manual) D-Dimer Heparin Anti-Xa Level POC ABG pH 7.211 L POC ABG pCO2 45.3 H POC ABG pO2 123 H VBG pH Sodium Potassium 5.3 H Chloride Carbon Dioxide 16 L BUN 76 H Creatinine 7.5 H Glucose 121 H POC Glucose Calcium 7.9 L Phosphorus Iron Total Creatine Kinase CK-MB (CK-2) Troponin T NT-Pro-B Natriuret Pep Albumin 3.6 L Triglycerides HDL Cholesterol Urine WBC (Auto) Urine Creatinine Urine Total Protein Crossmatch 12/16/17 12/16/17 12/16/17 10:11 11:10 11:41 WBC 17.6 H RBC 3.16 L Hgb 7.9 L Hct 24.5 L MCV 78 L MCH 25 L MCHC RDW 17.7 H Plt Count Lymph % (Auto) 8.6 L [place] % (Auto) [place] # 1.3 H Seg Neutrophils % 83.7 H Seg Neuts % (Manual) Lymphocytes % (Manual) Monocytes % (Manual) Seg Neutrophils # 14.7 H Seg Neutrophils # Man Lymphocytes # (Manual) Monocytes # (Manual) D-Dimer Heparin Anti-Xa Level POC ABG pH 7.491 H POC ABG pCO2 POC ABG pO2 56 L VBG pH Sodium Potassium Chloride Carbon Dioxide BUN Creatinine Glucose POC Glucose 127 H Calcium Phosphorus Iron Total Creatine Kinase CK-MB (CK-2) Troponin T NT-Pro-B Natriuret Pep Albumin Triglycerides HDL Cholesterol Urine WBC (Auto) Urine Creatinine Urine Total Protein Crossmatch 12/16/17 12/16/17 12/16/17 12:05 12:05 12:15 WBC RBC Hgb 7.4 L Hct 22.8 L MCV MCH MCHC RDW Plt Count Lymph % (Auto) [place] % (Auto) [place] # Seg Neutrophils % Seg Neuts % (Manual) Lymphocytes % (Manual) Monocytes % (Manual) Seg Neutrophils # Seg Neutrophils # Man Lymphocytes # (Manual) Monocytes # (Manual) D-Dimer Heparin Anti-Xa Level POC ABG pH POC ABG pCO2 POC ABG pO2 VBG pH Sodium Potassium Chloride Carbon Dioxide BUN Creatinine Glucose POC Glucose Calcium Phosphorus Iron Total Creatine Kinase CK-MB (CK-2) Troponin T NT-Pro-B Natriuret Pep Albumin Triglycerides HDL Cholesterol Urine WBC (Auto) > 182.0 H Urine Creatinine 81.7 H Urine Total Protein 493 H Crossmatch 12/16/17 12/16/17 12/17/17 17:52 18:08 00:11 WBC RBC Hgb 6.6 L 6.9 L Hct 20.6 L 20.8 L MCV MCH MCHC RDW Plt Count Lymph % (Auto) [place] % (Auto) [place] # Seg Neutrophils % Seg Neuts % (Manual) Lymphocytes % (Manual) Monocytes % (Manual) Seg Neutrophils # Seg Neutrophils # Man Lymphocytes # (Manual) Monocytes # (Manual) D-Dimer Heparin Anti-Xa Level POC ABG pH POC ABG pCO2 POC ABG pO2 VBG pH Sodium Potassium Chloride Carbon Dioxide BUN Creatinine Glucose POC Glucose 127 H Calcium Phosphorus Iron Total Creatine Kinase CK-MB (CK-2) Troponin T NT-Pro-B Natriuret Pep Albumin Triglycerides HDL Cholesterol Urine WBC (Auto) Urine Creatinine Urine Total Protein Crossmatch 12/17/17 12/17/17 12/17/17 00:24 04:03 07:54 WBC 13.1 H RBC 3.06 L Hgb 8.1 L Hct 24.3 L MCV 79 L MCH 26 L MCHC RDW 18.6 H Plt Count Lymph % (Auto) 11.9 L [place] % (Auto) 8.6 H [place] # 1.1 H Seg Neutrophils % 77.9 H Seg Neuts % (Manual) Lymphocytes % (Manual) Monocytes % (Manual) Seg Neutrophils # 10.2 H Seg Neutrophils # Man Lymphocytes # (Manual) Monocytes # (Manual) D-Dimer Heparin Anti-Xa Level POC ABG pH 7.453 H POC ABG pCO2 33.6 L POC ABG pO2 VBG pH Sodium Potassium Chloride Carbon Dioxide BUN Creatinine Glucose POC Glucose 126 H Calcium Phosphorus Iron Total Creatine Kinase CK-MB (CK-2) Troponin T NT-Pro-B Natriuret Pep Albumin Triglycerides HDL Cholesterol Urine WBC (Auto) Urine Creatinine Urine Total Protein Crossmatch 12/17/17 12/17/17 12/17/17 07:54 09:22 11:55 WBC RBC Hgb Hct MCV MCH MCHC RDW Plt Count Lymph % (Auto) [place] % (Auto) [place] # Seg Neutrophils % Seg Neuts % (Manual) Lymphocytes % (Manual) Monocytes % (Manual) Seg Neutrophils # Seg Neutrophils # Man Lymphocytes # (Manual) Monocytes # (Manual) D-Dimer Heparin Anti-Xa Level POC ABG pH POC ABG pCO2 POC ABG pO2 VBG pH Sodium Potassium 3.4 L D Chloride Carbon Dioxide 21 L BUN 65 H Creatinine 6.4 H Glucose 133 H POC Glucose 112 H 119 H Calcium Phosphorus Iron Total Creatine Kinase CK-MB (CK-2) Troponin T NT-Pro-B Natriuret Pep Albumin Triglycerides HDL Cholesterol Urine WBC (Auto) Urine Creatinine Urine Total Protein Crossmatch 12/17/17 12/17/17 12/17/17 13:07 17:15 17:29 WBC RBC Hgb 9.3 L 9.8 L Hct 27.9 L 29.8 L MCV MCH MCHC RDW Plt Count Lymph % (Auto) [place] % (Auto) [place] # Seg Neutrophils % Seg Neuts % (Manual) Lymphocytes % (Manual) Monocytes % (Manual) Seg Neutrophils # Seg Neutrophils # Man Lymphocytes # (Manual) Monocytes # (Manual) D-Dimer Heparin Anti-Xa Level POC ABG pH POC ABG pCO2 POC ABG pO2 VBG pH Sodium Potassium Chloride Carbon Dioxide BUN Creatinine Glucose POC Glucose 158 H Calcium Phosphorus Iron Total Creatine Kinase CK-MB (CK-2) Troponin T NT-Pro-B Natriuret Pep Albumin Triglycerides HDL Cholesterol Urine WBC (Auto) Urine Creatinine Urine Total Protein Crossmatch 12/18/17 12/18/17 12/18/17 00:03 00:28 04:44 WBC RBC Hgb 9.9 L Hct 29.9 L MCV MCH MCHC RDW Plt Count Lymph % (Auto) [place] % (Auto) [place] # Seg Neutrophils % Seg Neuts % (Manual) Lymphocytes % (Manual) Monocytes % (Manual) Seg Neutrophils # Seg Neutrophils # Man Lymphocytes # (Manual) Monocytes # (Manual) D-Dimer Heparin Anti-Xa Level POC ABG pH 7.497 H POC ABG pCO2 27.0 L POC ABG pO2 136 H VBG pH Sodium Potassium Chloride Carbon Dioxide BUN Creatinine Glucose POC Glucose 109 H Calcium Phosphorus Iron Total Creatine Kinase CK-MB (CK-2) Troponin T NT-Pro-B Natriuret Pep Albumin Triglycerides HDL Cholesterol Urine WBC (Auto) Urine Creatinine Urine Total Protein Crossmatch 12/18/17 12/18/17 12/18/17 05:12 05:12 11:55 WBC 14.2 H RBC Hgb 9.8 L Hct 29.7 L MCV 81 L MCH 27 L MCHC RDW 18.8 H Plt Count Lymph % (Auto) 12.3 L [place] % (Auto) 9.4 H [place] # 1.3 H Seg Neutrophils % 75.5 H Seg Neuts % (Manual) Lymphocytes % (Manual) Monocytes % (Manual) Seg Neutrophils # 10.7 H Seg Neutrophils # Man Lymphocytes # (Manual) Monocytes # (Manual) D-Dimer Heparin Anti-Xa Level POC ABG pH POC ABG pCO2 POC ABG pO2 VBG pH Sodium Potassium Chloride Carbon Dioxide 19 L BUN 55 H Creatinine 6.0 H Glucose 112 H POC Glucose 126 H Calcium Phosphorus Iron Total Creatine Kinase CK-MB (CK-2) Troponin T NT-Pro-B Natriuret Pep Albumin Triglycerides HDL Cholesterol Urine WBC (Auto) Urine Creatinine Urine Total Protein Crossmatch 12/18/17 12/19/17 12/19/17 21:34 05:01 05:10 WBC 11.9 H RBC Hgb 9.5 L Hct 30.1 L MCV 82 L MCH 26 L MCHC RDW 19.0 H Plt Count Lymph % (Auto) [place] % (Auto) [place] # Seg Neutrophils % Seg Neuts % (Manual) Lymphocytes % (Manual) Monocytes % (Manual) Seg Neutrophils # Seg Neutrophils # Man Lymphocytes # (Manual) Monocytes # (Manual) D-Dimer Heparin Anti-Xa Level POC ABG pH POC ABG pCO2 29.8 L POC ABG pO2 116 H VBG pH Sodium Potassium Chloride Carbon Dioxide BUN Creatinine Glucose POC Glucose 120 H Calcium Phosphorus Iron Total Creatine Kinase CK-MB (CK-2) Troponin T NT-Pro-B Natriuret Pep Albumin Triglycerides HDL Cholesterol Urine WBC (Auto) Urine Creatinine Urine Total Protein Crossmatch 12/19/17 12/19/17 12/19/17 05:10 05:10 07:15 WBC RBC Hgb Hct MCV MCH MCHC RDW Plt Count Lymph % (Auto) [place] % (Auto) [place] # Seg Neutrophils % Seg Neuts % (Manual) Lymphocytes % (Manual) Monocytes % (Manual) Seg Neutrophils # Seg Neutrophils # Man Lymphocytes # (Manual) Monocytes # (Manual) D-Dimer Heparin Anti-Xa Level POC ABG pH POC ABG pCO2 POC ABG pO2 VBG pH Sodium Potassium Chloride 95.9 L Carbon Dioxide 18 L BUN 90 H Creatinine 9.2 H D Glucose 140 H POC Glucose 130 H Calcium Phosphorus 11.90 H Iron Total Creatine Kinase CK-MB (CK-2) Troponin T NT-Pro-B Natriuret Pep Albumin Triglycerides 440 H HDL Cholesterol Urine WBC (Auto) Urine Creatinine Urine Total Protein Crossmatch 12/19/17 12/19/17 12/19/17 11:52 15:36 19:17 WBC RBC Hgb 10.3 L Hct 31.1 L MCV MCH MCHC RDW Plt Count Lymph % (Auto) [place] % (Auto) [place] # Seg Neutrophils % Seg Neuts % (Manual) Lymphocytes % (Manual) Monocytes % (Manual) Seg Neutrophils # Seg Neutrophils # Man Lymphocytes # (Manual) Monocytes # (Manual) D-Dimer Heparin Anti-Xa Level POC ABG pH POC ABG pCO2 POC ABG pO2 VBG pH Sodium Potassium Chloride Carbon Dioxide BUN Creatinine Glucose POC Glucose 148 H 127 H Calcium Phosphorus Iron Total Creatine Kinase CK-MB (CK-2) Troponin T NT-Pro-B Natriuret Pep Albumin Triglycerides HDL Cholesterol Urine WBC (Auto) Urine Creatinine Urine Total Protein Crossmatch 12/19/17 12/19/17 12/20/17 19:17 23:01 02:07 WBC RBC Hgb Hct MCV MCH MCHC RDW Plt Count Lymph % (Auto) [place] % (Auto) [place] # Seg Neutrophils % Seg Neuts % (Manual) Lymphocytes % (Manual) Monocytes % (Manual) Seg Neutrophils # Seg Neutrophils # Man Lymphocytes # (Manual) Monocytes # (Manual) D-Dimer Heparin Anti-Xa Level < 0.10 L 0.77 H POC ABG pH POC ABG pCO2 POC ABG pO2 VBG pH Sodium Potassium Chloride Carbon Dioxide BUN Creatinine Glucose POC Glucose 151 H Calcium Phosphorus Iron Total Creatine Kinase CK-MB (CK-2) Troponin T NT-Pro-B Natriuret Pep Albumin Triglycerides HDL Cholesterol Urine WBC (Auto) Urine Creatinine Urine Total Protein Crossmatch 12/20/17 12/20/17 12/20/17 02:09 04:03 07:52 WBC RBC Hgb Hct MCV MCH MCHC RDW Plt Count Lymph % (Auto) [place] % (Auto) [place] # Seg Neutrophils % Seg Neuts % (Manual) Lymphocytes % (Manual) Monocytes % (Manual) Seg Neutrophils # Seg Neutrophils # Man Lymphocytes # (Manual) Monocytes # (Manual) D-Dimer Heparin Anti-Xa Level POC ABG pH 7.308 L POC ABG pCO2 31.1 L POC ABG pO2 133 H VBG pH Sodium 147 H Potassium Chloride 96.9 L Carbon Dioxide 14 L BUN 116 H Creatinine 11.6 H Glucose 109 H POC Glucose 131 H Calcium Phosphorus Iron Total Creatine Kinase CK-MB (CK-2) Troponin T NT-Pro-B Natriuret Pep Albumin Triglycerides HDL Cholesterol Urine WBC (Auto) Urine Creatinine Urine Total Protein Crossmatch 12/20/17 12/20/17 12/20/17 11:11 11:43 16:08 WBC RBC Hgb Hct MCV MCH MCHC RDW Plt Count Lymph % (Auto) [place] % (Auto) [place] # Seg Neutrophils % Seg Neuts % (Manual) Lymphocytes % (Manual) Monocytes % (Manual) Seg Neutrophils # Seg Neutrophils # Man Lymphocytes # (Manual) Monocytes # (Manual) D-Dimer Heparin Anti-Xa Level POC ABG pH 7.266 L POC ABG pCO2 32.6 L POC ABG pO2 VBG pH Sodium Potassium Chloride Carbon Dioxide BUN Creatinine Glucose POC Glucose 143 H 159 H Calcium Phosphorus Iron Total Creatine Kinase CK-MB (CK-2) Troponin T NT-Pro-B Natriuret Pep Albumin Triglycerides HDL Cholesterol Urine WBC (Auto) Urine Creatinine Urine Total Protein Crossmatch 12/21/17 12/21/17 12/21/17 03:44 04:45 04:45 WBC 13.7 H RBC Hgb 10.8 L Hct 33.8 L MCV 81 L MCH 26 L MCHC RDW 19.4 H Plt Count Lymph % (Auto) [place] % (Auto) [place] # Seg Neutrophils % Seg Neuts % (Manual) 84.0 H Lymphocytes % (Manual) 6.0 L Monocytes % (Manual) 9.0 H Seg Neutrophils # Seg Neutrophils # Man 11.5 H Lymphocytes # (Manual) 0.8 L Monocytes # (Manual) 1.2 H D-Dimer Heparin Anti-Xa Level POC ABG pH POC ABG pCO2 27.6 L POC ABG pO2 VBG pH Sodium Potassium Chloride 93.9 L Carbon Dioxide 19 L BUN 82 H Creatinine 8.2 H Glucose 113 H POC Glucose Calcium Phosphorus Iron Total Creatine Kinase CK-MB (CK-2) Troponin T NT-Pro-B Natriuret Pep Albumin Triglycerides HDL Cholesterol Urine WBC (Auto) Urine Creatinine Urine Total Protein Crossmatch 12/21/17 12/21/17 12/21/17 08:08 09:35 12:11 WBC RBC Hgb Hct MCV MCH MCHC RDW Plt Count Lymph % (Auto) [place] % (Auto) [place] # Seg Neutrophils % Seg Neuts % (Manual) Lymphocytes % (Manual) Monocytes % (Manual) Seg Neutrophils # Seg Neutrophils # Man Lymphocytes # (Manual) Monocytes # (Manual) D-Dimer Heparin Anti-Xa Level 0.80 H POC ABG pH POC ABG pCO2 POC ABG pO2 VBG pH Sodium Potassium Chloride Carbon Dioxide BUN Creatinine Glucose POC Glucose 123 H 139 H Calcium Phosphorus Iron Total Creatine Kinase CK-MB (CK-2) Troponin T NT-Pro-B Natriuret Pep Albumin Triglycerides HDL Cholesterol Urine WBC (Auto) Urine Creatinine Urine Total Protein Crossmatch 12/21/17 12/21/17 12/21/17 15:51 17:12 23:18 WBC RBC Hgb Hct MCV MCH MCHC RDW Plt Count Lymph % (Auto) [place] % (Auto) [place] # Seg Neutrophils % Seg Neuts % (Manual) Lymphocytes % (Manual) Monocytes % (Manual) Seg Neutrophils # Seg Neutrophils # Man Lymphocytes # (Manual) Monocytes # (Manual) D-Dimer Heparin Anti-Xa Level 1.17 H POC ABG pH POC ABG pCO2 POC ABG pO2 VBG pH Sodium Potassium Chloride Carbon Dioxide BUN Creatinine Glucose POC Glucose 169 H 115 H Calcium Phosphorus Iron Total Creatine Kinase CK-MB (CK-2) Troponin T NT-Pro-B Natriuret Pep Albumin Triglycerides HDL Cholesterol Urine WBC (Auto) Urine Creatinine Urine Total Protein Crossmatch 12/22/17 12/23/17 12/23/17 18:55 00:05 04:35 WBC 12.7 H RBC 3.64 L Hgb 9.8 L Hct 30.0 L MCV 83 L MCH 27 L MCHC RDW 18.9 H Plt Count Lymph % (Auto) 10.3 L [place] % (Auto) 10.3 H [place] # 1.3 H Seg Neutrophils % 77.5 H Seg Neuts % (Manual) Lymphocytes % (Manual) Monocytes % (Manual) Seg Neutrophils # 9.9 H Seg Neutrophils # Man Lymphocytes # (Manual) Monocytes # (Manual) D-Dimer Heparin Anti-Xa Level POC ABG pH POC ABG pCO2 POC ABG pO2 VBG pH Sodium Potassium Chloride Carbon Dioxide BUN Creatinine Glucose POC Glucose 120 H 108 H Calcium Phosphorus Iron Total Creatine Kinase CK-MB (CK-2) Troponin T NT-Pro-B Natriuret Pep Albumin Triglycerides HDL Cholesterol Urine WBC (Auto) Urine Creatinine Urine Total Protein Crossmatch 12/23/17 12/23/17 12/23/17 04:35 04:35 06:27 WBC RBC Hgb Hct MCV MCH MCHC RDW Plt Count Lymph % (Auto) [place] % (Auto) [place] # Seg Neutrophils % Seg Neuts % (Manual) Lymphocytes % (Manual) Monocytes % (Manual) Seg Neutrophils # Seg Neutrophils # Man Lymphocytes # (Manual) Monocytes # (Manual) D-Dimer Heparin Anti-Xa Level 0.24 L POC ABG pH POC ABG pCO2 POC ABG pO2 VBG pH Sodium Potassium Chloride 88.9 L Carbon Dioxide 16 L BUN 107 H Creatinine 9.8 H Glucose 140 H POC Glucose 143 H Calcium Phosphorus Iron Total Creatine Kinase CK-MB (CK-2) Troponin T NT-Pro-B Natriuret Pep Albumin Triglycerides HDL Cholesterol Urine WBC (Auto) Urine Creatinine Urine Total Protein Crossmatch 12/23/17 12/24/17 12/24/17 11:55 00:00 04:40 WBC 13.7 H RBC Hgb 9.8 L Hct 30.4 L MCV 81 L MCH 26 L MCHC RDW 19.1 H Plt Count Lymph % (Auto) 10.7 L [place] % (Auto) 12.2 H [place] # 1.7 H Seg Neutrophils % 75.0 H Seg Neuts % (Manual) Lymphocytes % (Manual) Monocytes % (Manual) Seg Neutrophils # 10.3 H Seg Neutrophils # Man Lymphocytes # (Manual) Monocytes # (Manual) D-Dimer Heparin Anti-Xa Level POC ABG pH POC ABG pCO2 POC ABG pO2 VBG pH Sodium Potassium Chloride Carbon Dioxide BUN Creatinine Glucose POC Glucose 161 H 143 H Calcium Phosphorus Iron Total Creatine Kinase CK-MB (CK-2) Troponin T NT-Pro-B Natriuret Pep Albumin Triglycerides HDL Cholesterol Urine WBC (Auto) Urine Creatinine Urine Total Protein Crossmatch 12/24/17 12/24/17 12/24/17 04:40 08:16 11:11 WBC RBC Hgb Hct MCV MCH MCHC RDW Plt Count Lymph % (Auto) [place] % (Auto) [place] # Seg Neutrophils % Seg Neuts % (Manual) Lymphocytes % (Manual) Monocytes % (Manual) Seg Neutrophils # Seg Neutrophils # Man Lymphocytes # (Manual) Monocytes # (Manual) D-Dimer Heparin Anti-Xa Level POC ABG pH POC ABG pCO2 POC ABG pO2 VBG pH Sodium Potassium 3.5 L D Chloride 96.8 L Carbon Dioxide 21 L BUN 52 H Creatinine 6.0 H Glucose 131 H POC Glucose 120 H 120 H Calcium Phosphorus Iron Total Creatine Kinase CK-MB (CK-2) Troponin T NT-Pro-B Natriuret Pep Albumin Triglycerides HDL Cholesterol Urine WBC (Auto) Urine Creatinine Urine Total Protein Crossmatch 12/24/17 12/24/17 12/25/17 13:33 16:07 00:45 WBC RBC Hgb Hct MCV MCH MCHC RDW Plt Count Lymph % (Auto) [place] % (Auto) [place] # Seg Neutrophils % Seg Neuts % (Manual) Lymphocytes % (Manual) Monocytes % (Manual) Seg Neutrophils # Seg Neutrophils # Man Lymphocytes # (Manual) Monocytes # (Manual) D-Dimer Heparin Anti-Xa Level POC ABG pH POC ABG pCO2 POC ABG pO2 VBG pH Sodium Potassium Chloride Carbon Dioxide BUN Creatinine Glucose POC Glucose 125 H 122 H 155 H Calcium Phosphorus Iron Total Creatine Kinase CK-MB (CK-2) Troponin T NT-Pro-B Natriuret Pep Albumin Triglycerides HDL Cholesterol Urine WBC (Auto) Urine Creatinine Urine Total Protein Crossmatch 12/25/17 12/25/17 12/25/17 04:29 04:29 05:19 WBC 12.2 H RBC Hgb 9.8 L Hct 31.2 L MCV 82 L MCH 26 L MCHC 31 L RDW 19.3 H Plt Count Lymph % (Auto) 10.5 L [place] % (Auto) 12.1 H [place] # 1.5 H Seg Neutrophils % 75.8 H Seg Neuts % (Manual) Lymphocytes % (Manual) Monocytes % (Manual) Seg Neutrophils # 9.3 H Seg Neutrophils # Man Lymphocytes # (Manual) Monocytes # (Manual) D-Dimer Heparin Anti-Xa Level POC ABG pH POC ABG pCO2 POC ABG pO2 VBG pH Sodium Potassium Chloride 96.1 L Carbon Dioxide 19 L BUN 75 H Creatinine 8.5 H Glucose 143 H POC Glucose 145 H Calcium Phosphorus Iron Total Creatine Kinase CK-MB (CK-2) Troponin T NT-Pro-B Natriuret Pep Albumin Triglycerides HDL Cholesterol Urine WBC (Auto) Urine Creatinine Urine Total Protein Crossmatch 12/25/17 12/25/17 12/26/17 12:02 22:36 00:08 WBC RBC Hgb Hct MCV MCH MCHC RDW Plt Count Lymph % (Auto) [place] % (Auto) [place] # Seg Neutrophils % Seg Neuts % (Manual) Lymphocytes % (Manual) Monocytes % (Manual) Seg Neutrophils # Seg Neutrophils # Man Lymphocytes # (Manual) Monocytes # (Manual) D-Dimer Heparin Anti-Xa Level 1.29 H POC ABG pH POC ABG pCO2 POC ABG pO2 VBG pH Sodium Potassium Chloride Carbon Dioxide BUN Creatinine Glucose POC Glucose 189 H 115 H Calcium Phosphorus Iron Total Creatine Kinase CK-MB (CK-2) Troponin T NT-Pro-B Natriuret Pep Albumin Triglycerides HDL Cholesterol Urine WBC (Auto) Urine Creatinine Urine Total Protein Crossmatch 12/26/17 12/26/17 03:29 03:29 WBC 12.2 H RBC 3.47 L Hgb 9.3 L Hct 28.6 L MCV 83 L MCH 27 L MCHC RDW 19.5 H Plt Count Lymph % (Auto) 11.8 L [place] % (Auto) 10.3 H [place] # 1.3 H Seg Neutrophils % 75.3 H Seg Neuts % (Manual) Lymphocytes % (Manual) Monocytes % (Manual) Seg Neutrophils # 9.2 H Seg Neutrophils # Man Lymphocytes # (Manual) Monocytes # (Manual) D-Dimer Heparin Anti-Xa Level POC ABG pH POC ABG pCO2 POC ABG pO2 VBG pH Sodium Potassium Chloride 92.7 L Carbon Dioxide 18 L BUN 90 H Creatinine 10.2 H Glucose 104 H POC Glucose Calcium Phosphorus Iron Total Creatine Kinase CK-MB (CK-2) Troponin T NT-Pro-B Natriuret Pep Albumin Triglycerides HDL Cholesterol Urine WBC (Auto) Urine Creatinine Urine Total Protein Crossmatch Allied health notes reviewed: nursing
[2017-12-27] MEDS: LOPRESSOR IV SCH ×3 (04:02→21:18)
[2017-12-27] MEDS: REGLAN IV SCH (06:07)
[2017-12-27 06:25] LABS: Basophils # (Auto) 0.1 K/mm3 (0.0-0.1); Basophils % (Auto) 0.6 % (0.0-1.8); Eosinophils # (Auto) 0.1 K/mm3 (0.0-0.4); Eosinophils % (Auto) 1.1 % (0.0-4.3); Hematocrit 26.2 % (35.5-45.6); Hemoglobin 8.7 gm/dl (11.8-15.2); Lymphocytes # (Auto) 1.2 K/mm3 (1.2-5.4); Lymphocytes % (Auto) 10.1 % (13.4-35.0); Mean Corpuscular HGB Conc 33 % (32-34); Mean Corpuscular Hemoglobin 27 pg (28-32); Mean Corpuscular Volume 80 fl (84-94); Monocytes # (Auto) 0.9 K/mm3 (0.0-0.8); Monocytes % (Auto) 7.7 % (0.0-7.3); Platelet Count 291 K/mm3 (140-440); Red Blood Count 3.27 M/mm3 (3.65-5.03); Red Cell Distribution Width 19.6 % (13.2-15.2)
[2017-12-27 06:54] LABS: Calcium 8.7 mg/dL (8.4-10.2)
--- NOTE | 2017-12-27 07:00 | Progress Note ---
Assessment and Plan - Patient Problems (1) BALDO (acute kidney injury) Current Visit: Yes Status: Acute Plan to address problem: Likely in the setting of acure cardiorenal syndrome. No signs of renal recovery at this time and patient remains on dialysis, on TTS schedule He has had permcath placed and awaiting outpatient dialysis to be set up. Femoral vascath removed. Next HD session tommorow. (2) Acute exacerbation of CHF (congestive heart failure) Current Visit: Yes Status: Acute Qualifiers: Heart failure type: combined systolic and diastolic Qualified Code(s): I50.43 - Acute on chronic combined systolic (congestive) and diastolic ( congestive) heart failure Plan to address problem: Volume status improved with dialysis. (3) Acidosis, metabolic Current Visit: Yes Status: Acute Plan to address problem: Improved with dialysis. Will continue to monitor. (4) Hyperkalemia Current Visit: Yes Status: Acute Plan to address problem: Improved with clearance provided with dialysis. He is NPO at present. He should be on a low K renal diet when not NPO. Will continue to monitor. Morning K noted to be 3.1. Will change his potassium bath to 3K on future HD sessions. (5) Respiratory failure Current Visit: Yes Status: Acute Qualifiers: Chronicity: acute Respiratory failure complication: hypoxia Qualified Code(s): J96.01 - Acute respiratory failure with hypoxia Plan to address problem: Tolerating well with adequate O2 sats on O2 via NC. Further management per respiratory team. (6) Severe anemia Current Visit: Yes Status: Chronic Plan to address problem: improved with transfusions. Will closely monitor. Per primary notes, possible plan for EGD/colonoscopy when stable. Will follow up. Subjective Date of service: 12/27/17 Principal diagnosis: Anemia Interval history: No acute changes overnight. Resting in bed in no acute distress. Had HD session yesterday. Objective - Vital Signs Vital signs: Vital Signs - 12hr 12/26/17 12/26/17 12/26/17 20:00 20:03 20:29 Temperature 98.7 F Pulse Rate 97 H Pulse Rate [ 96 H Anterior Bilateral Throughout] Pulse Rate [ From Monitor] Respiratory 22 Rate Respiratory 18 Rate [Anterior Bilateral Throughout] Blood Pressure 142/89 O2 Sat by Pulse 96 97 Oximetry 12/26/17 12/26/17 12/27/17 22:00 22:58 01:53 Temperature 98.6 F Pulse Rate 97 H 88 Pulse Rate [ Anterior Bilateral Throughout] Pulse Rate [ 88 From Monitor] Respiratory 22 22 Rate Respiratory Rate [Anterior Bilateral Throughout] Blood Pressure 142/89 124/60 O2 Sat by Pulse 90 90 Oximetry 12/27/17 04:02 Temperature Pulse Rate 88 Pulse Rate [ Anterior Bilateral Throughout] Pulse Rate [ From Monitor] Respiratory Rate Respiratory Rate [Anterior Bilateral Throughout] Blood Pressure 124/81 O2 Sat by Pulse Oximetry - General Appearance General appearance: well-developed, appears stated age, chronically ill EENT: ATNC, PERRL Neck: no JVD, no thyromegaly Respiratory: Present: Clear to Ascultation Cardiology: regular, S1S2 Gastrointestinal: normal Integumentary: no rash, warm and dry Neurologic: no focal deficit Musculoskeletal: other (-edema) Psychiatric: cooperative - Lab 12/27/17 05:28 12/27/17 05:28 Most recent lab results Calcium 8.7 mg/dL (8.4-10.2) 12/27/17 05:28 Phosphorus 11.90 mg/dL (2.5-4.5) H 12/19/17 05:10 Urine Creatinine 81.7 mg/dL (0.1-20.0) H 12/16/17 12:05 Urine Sodium 62 mmol/L 12/16/17 12:05 Urine Total Protein 493 mg/dL (5-11.8) H 12/16/17 12:05 - Allied health notes Allied health notes reviewed: nursing
[2017-12-27] MEDS: DUONEB *Not for PRN Use IH SCH ×3 (07:55→19:55)
--- NOTE | 2017-12-27 08:22 | Progress Note ---
Assessment and Plan Assessment and plan: A/P Acute Hypokalemia, replete and recheck s/p Severe Chronic blood loss anemia -s/p blood transfusion with 4 units of PRBC monitor H/H closely. GI team following Acute kidney Injury/ATN - will need outpt HD clinic -on HD per renal -Neprology following Acute Right LE DVT -cont on heparin drip - monitor h and h - risk of bleeding -when stable enough will transition to oral anticoagulant. - bleeding precautions at all times Acute respiratory failure with hypoxia. -likely due to pulmonary edema from renal failure - pulmonology following - s/p extubation on 12/21/17 - cont nebs and supplemental O2. -Monitor closely. HFrEF -2d ECHO EF 40-45% -cont volume removal by increased Ultrafiltration -Cardio following' - Strict I/Os - Fluid restriction Sepsis likely from PNA, resolved -treated with IV abx, -blood cultures negative so far Elevated troponin 2/2 decreased renal clearance vs demand ischemia ( Type II MS) -On medical management -Cardiology following. -Monitor closely Bilateral pneumonia -treated with abx -blood and sputum culture neg HTN -Controlled on meds. GI prophylaxis on Protonix. Further pt mgt will depend solely on the hospital course. 30 mins History Interval history: Admitted with Acute Resp failure, BALDO/ATN on HD, Acute combined systolic HF, abdominal distention. NG tube discontinued, started on diet. Hospitalist Physical - Constitutional Vitals: Temp Pulse Resp BP Pulse Ox 98.6 F 91 H 22 124/81 92 12/27/17 01:53 12/27/17 08:00 12/27/17 01:53 12/27/17 04:02 12/27/17 07:57 General appearance: Present: no acute distress, other (ill appearing. able to complete sentences. ) - EENT Eyes: Present: PERRL, EOM intact (sclera Icterus. ) ENT: hearing intact, clear oral mucosa - Neck Neck: Present: supple, normal ROM - Respiratory Respiratory: negative: other (Fair AE bilaterally, no wheezes or crackles.) - Cardiovascular Rhythm: regular Heart Sounds: Present: S1 & S2 - Extremities Extremities: no ischemia, pulses intact, pulses symmetrical - Abdominal General gastrointestinal: soft, non-tender, distended, normal bowel sounds - Integumentary Integumentary: Present: clear, warm, dry, jaundice - Psychiatric Psychiatric: appropriate mood/affect, intact judgment & insight, memory intact, cooperative - Neurologic Neurologic: CNII-XII intact, focal deficits, moves all extremities Results - Labs CBC & Chem 7: 12/27/17 05:28 12/27/17 05:28 Labs: Laboratory Last Values WBC 11.8 K/mm3 (4.5-11.0) H 12/27/17 05:28 RBC 3.27 M/mm3 (3.65-5.03) L 12/27/17 05:28 Hgb 8.7 gm/dl (11.8-15.2) L 12/27/17 05:28 Hct 26.2 % (35.5-45.6) L 12/27/17 05:28 MCV 80 fl (84-94) L 12/27/17 05:28 MCH 27 pg (28-32) L 12/27/17 05:28 MCHC 33 % (32-34) 12/27/17 05:28 RDW 19.6 % (13.2-15.2) H 12/27/17 05:28 Plt Count 291 K/mm3 (140-440) 12/27/17 05:28 Lymph % (Auto) 10.1 % (13.4-35.0) L 12/27/17 05:28 [place] % (Auto) 7.7 % (0.0-7.3) H 12/27/17 05:28 Eos % (Auto) 1.1 % (0.0-4.3) 12/27/17 05:28 Baso % (Auto) 0.6 % (0.0-1.8) 12/27/17 05:28 Lymph # 1.2 K/mm3 (1.2-5.4) 12/27/17 05:28 [place] # 0.9 K/mm3 (0.0-0.8) H 12/27/17 05:28 Eos # 0.1 K/mm3 (0.0-0.4) 12/27/17 05:28 Baso # 0.1 K/mm3 (0.0-0.1) 12/27/17 05:28 Add Manual Diff Complete 12/21/17 04:45 Total Counted 100 12/21/17 04:45 Seg Neutrophils % 80.5 % (40.0-70.0) H 12/27/17 05:28 Seg Neuts % (Manual) 84.0 % (40.0-70.0) H 12/21/17 04:45 Band Neutrophils % 0 % 12/21/17 04:45 Lymphocytes % (Manual) 6.0 % (13.4-35.0) L 12/21/17 04:45 Reactive Lymphs % (Man) 0 % 12/21/17 04:45 Monocytes % (Manual) 9.0 % (0.0-7.3) H 12/21/17 04:45 Eosinophils % (Manual) 1.0 % (0.0-4.3) 12/21/17 04:45 Basophils % (Manual) 0 % (0.0-1.8) 12/21/17 04:45 Metamyelocytes % 0 % 12/21/17 04:45 Myelocytes % 0 % 12/21/17 04:45 Promyelocytes % 0 % 12/21/17 04:45 Blast Cells % 0 % 12/21/17 04:45 Nucleated RBC % Not Reportable 12/21/17 04:45 Seg Neutrophils # 9.5 K/mm3 (1.8-7.7) H 12/27/17 05:28 Seg Neutrophils # Man 11.5 K/mm3 (1.8-7.7) H 12/21/17 04:45 Band Neutrophils # 0.0 K/mm3 12/21/17 04:45 Lymphocytes # (Manual) 0.8 K/mm3 (1.2-5.4) L 12/21/17 04:45 Abs React Lymphs (Man) 0.0 K/mm3 12/21/17 04:45 Monocytes # (Manual) 1.2 K/mm3 (0.0-0.8) H 12/21/17 04:45 Eosinophils # (Manual) 0.1 K/mm3 (0.0-0.4) 12/21/17 04:45 Basophils # (Manual) 0.0 K/mm3 (0.0-0.1) 12/21/17 04:45 Metamyelocytes # 0.0 K/mm3 12/21/17 04:45 Myelocytes # 0.0 K/mm3 12/21/17 04:45 Promyelocytes # 0.0 K/mm3 12/21/17 04:45 Blast Cells # 0.0 K/mm3 12/21/17 04:45 WBC Morphology Not Reportable 12/21/17 04:45 Hypersegmented Neuts Not Reportable 12/21/17 04:45 Hyposegmented Neuts Not Reportable 12/21/17 04:45 Hypogranular Neuts Not Reportable 12/21/17 04:45 Smudge Cells Not Reportable 12/21/17 04:45 Toxic Granulation Not Reportable 12/21/17 04:45 Toxic Vacuolation Not Reportable 12/21/17 04:45 Dohle Bodies Not Reportable 12/21/17 04:45 Pelger-Huet Anomaly Not Reportable 12/21/17 04:45 Td Rods Not Reportable 12/21/17 04:45 Platelet Estimate Consistent w auto 12/21/17 04:45 Clumped Platelets Not Reportable 12/21/17 04:45 Plt Clumps, EDTA Not Reportable 12/21/17 04:45 Large Platelets Not Reportable 12/21/17 04:45 Giant Platelets Not Reportable 12/21/17 04:45 Platelet Satelliting Not Reportable 12/21/17 04:45 Plt Morphology Comment Not Reportable 12/21/17 04:45 RBC Morphology Not Reportable 12/21/17 04:45 Dimorphic RBCs Not Reportable 12/21/17 04:45 Polychromasia Not Reportable 12/21/17 04:45 Hypochromasia Not Reportable 12/21/17 04:45 Poikilocytosis Few 12/21/17 04:45 Anisocytosis 2+ 12/21/17 04:45 Microcytosis 1+ 12/21/17 04:45 Macrocytosis Not Reportable 12/21/17 04:45 Spherocytes Not Reportable 12/21/17 04:45 Pappenheimer Bodies Not Reportable 12/21/17 04:45 Sickle Cells Not Reportable 12/21/17 04:45 Target Cells Not Reportable 12/21/17 04:45 Tear Drop Cells Not Reportable 12/21/17 04:45 Ovalocytes Not Reportable 12/21/17 04:45 Helmet Cells Not Reportable 12/21/17 04:45 [place] Bodies Not Reportable 12/21/17 04:45 [place] Rings Not Reportable 12/21/17 04:45 [place] Cells Not Reportable 12/21/17 04:45 Bite Cells Not Reportable 12/21/17 04:45 Crenated Cell Not Reportable 12/21/17 04:45 Elliptocytes Not Reportable 12/21/17 04:45 Acanthocytes (Spur) Not Reportable 12/21/17 04:45 Rouleaux Not Reportable 12/21/17 04:45 Hemoglobin C Crystals Not Reportable 12/21/17 04:45 Schistocytes Not Reportable 12/21/17 04:45 Malaria parasites Not Reportable 12/21/17 04:45 [place] Bodies Not Reportable 12/21/17 04:45 Hem Pathologist Commnt No 12/21/17 04:45 PT 14.3 Sec. (12.2-14.9) 12/19/17 19:17 INR 1.05 (0.87-1.13) 12/19/17 19:17 APTT 27.9 Sec. (24.2-36.6) 12/19/17 19:17 D-Dimer 1108.83 ng/mlDDU (0-234) H 12/15/17 17:16 Heparin Anti-Xa Level 0.42 U.I./ml (0.3-0.7) 12/26/17 07:48 POC ABG pH 7.446 (7.35-7.45) 12/21/17 03:44 POC ABG pCO2 27.6 (35-45) L 12/21/17 03:44 POC ABG pO2 90 (80-105) 12/21/17 03:44 POC ABG HCO3 19.0 12/21/17 03:44 POC ABG Total CO2 20 12/21/17 03:44 POC ABG O2 Sat 97 12/21/17 03:44 POC ABG Base Excess -5 12/21/17 03:44 VBG pH 7.204 (7.320-7.420) L 12/15/17 18:01 FiO2 30 % 12/21/17 03:44 Sodium 141 mmol/L (137-145) 12/27/17 05:28 Potassium 3.1 mmol/L (3.6-5.0) L 12/27/17 05:28 Chloride 95.0 mmol/L (98-107) L 12/27/17 05:28 Carbon Dioxide 22 mmol/L (22-30) 12/27/17 05:28 Anion Gap 27 mmol/L 12/27/17 05:28 BUN 64 mg/dL (9-20) H 12/27/17 05:28 Creatinine 7.0 mg/dL (0.8-1.5) H 12/27/17 05:28 Estimated GFR 8 ml/min 12/27/17 05:28 BUN/Creatinine Ratio 9 % 12/27/17 05:28 Glucose 96 mg/dL (75-100) 12/27/17 05:28 POC Glucose 93 (70-105) 12/27/17 00:29 Hemoglobin A1c < 4.2 % (4-6) 12/15/17 17:16 Lactic Acid 1.40 mmol/L (0.7-2.0) 12/15/17 17:16 Calcium 8.7 mg/dL (8.4-10.2) 12/27/17 05:28 Phosphorus 11.90 mg/dL (2.5-4.5) H 12/19/17 05:10 Iron 37 ug/dL (49-181) L 12/16/17 00:24 TIBC 416 mcg/dL (250-450) 12/16/17 00:24 Ferritin 16.1 ng/mL (13.0-400.0) 12/16/17 00:24 Total Bilirubin 0.20 mg/dL (0.1-1.2) 12/16/17 03:43 AST 20 units/L (5-40) 12/16/17 03:43 ALT 15 units/L (7-56) 12/16/17 03:43 Alkaline Phosphatase 51 units/L (35-129) 12/16/17 03:43 Total Creatine Kinase 736 units/L (55-170) H 12/15/17 17:16 CK-MB (CK-2) 7.7 ng/mL (0.0-4.0) H 12/15/17 17:16 CK-MB (CK-2) Rel Index 1.0 (0-4) 12/15/17 17:16 Troponin T 0.067 ng/mL (0.00-0.029) H 12/15/17 17:16 NT-Pro-B Natriuret Pep 32069 pg/mL (0-900) H 12/15/17 17:16 Total Protein 6.4 g/dL (6.3-8.2) 12/16/17 03:43 Albumin 3.6 g/dL (3.9-5) L 12/16/17 03:43 Albumin/Globulin Ratio 1.3 % 12/16/17 03:43 Triglycerides 440 mg/dL (2-149) H 12/19/17 05:10 Cholesterol 163 mg/dL (50-199) 12/15/17 17:16 LDL Cholesterol Direct 102 mg/dL (50-130) 12/15/17 17:16 HDL Cholesterol 29 mg/dL (40-59) L 12/15/17 17:16 Cholesterol/HDL Ratio 5.62 % 12/15/17 17:16 Vitamin B12 221.6 pg/mL (211-911) 12/16/17 00:24 Folate 14.63 ng/mL (7.3-26.0) 12/16/17 00:24 Urine Color Yellow (Yellow) 12/16/17 12:05 Urine Turbidity Cloudy (Clear) 12/16/17 12:05 Urine pH 5.0 (5.0-7.0) 12/16/17 12:05 Ur Specific [place] 1.012 (1.003-1.030) 12/16/17 12:05 Urine Protein >500 mg/dL (Negative) 12/16/17 12:05 Urine Glucose (UA) 50 mg/dL (Negative) 12/16/17 12:05 Urine Ketones Neg mg/dL (Negative) 12/16/17 12:05 Urine Blood Mod (Negative) 12/16/17 12:05 Urine Nitrite Neg (Negative) 12/16/17 12:05 Urine Bilirubin Neg (Negative) 12/16/17 12:05 Urine Urobilinogen < 2.0 mg/dL (<2.0) 12/16/17 12:05 Ur Leukocyte Esterase Lg (Negative) 12/16/17 12:05 Urine WBC (Auto) > 182.0 /HPF (0.0-6.0) H 12/16/17 12:05 Urine RBC (Auto) 30.0 /HPF (0.0-6.0) 12/16/17 12:05 U Epithel Cells (Auto) 1.0 /HPF (0-13.0) 12/16/17 12:05 Urine Bacteria (Auto) 1+ /HPF (Negative) 12/16/17 12:05 Urine WBC Clumps 3+ /HPF 12/16/17 12:05 Urine Mucus 1+ /HPF 12/16/17 12:05 Urine Creatinine 81.7 mg/dL (0.1-20.0) H 12/16/17 12:05 Urine Sodium 62 mmol/L 12/16/17 12:05 Urine Total Protein 493 mg/dL (5-11.8) H 12/16/17 12:05 Urine Opiates Screen Presumptive negative 12/16/17 12:05 Urine Methadone Screen Presumptive negative 12/16/17 12:05 Ur Barbiturates Screen Presumptive negative 12/16/17 12:05 Ur Phencyclidine Scrn Presumptive negative 12/16/17 12:05 Ur Amphetamines Screen Presumptive negative 12/16/17 12:05 U Benzodiazepines Scrn Presumptive positive 12/16/17 12:05 Urine Cocaine Screen Presumptive negative 12/16/17 12:05 U Marijuana (THC) Screen Presumptive negative 12/16/17 12:05 Drugs of Abuse Note Disclamer 12/16/17 12:05 Hepatitis A IgM Ab Nonreactive (NonReactive) 12/16/17 04:47 Hep Bs Antigen Non-reactive (Negative) 12/16/17 04:47 Hep B Core IgM Ab Non-reactive (NonReactive) 12/16/17 04:47 Hepatitis C Antibody Non-reactive (NonReactive) 12/16/17 04:47 Blood Type A POSITIVE 12/15/17 17:45 Antibody Screen Negative 12/15/17 17:45 Crossmatch See Detail 12/15/17 17:45 - Imaging and Cardiology EKG: report reviewed, image reviewed Imaging and Cardiology: 2D Echocardiogram.
--- NOTE | 2017-12-27 09:05 | Progress Note ---
Assessment and Plan Acute respiratory failure now extubated Acute on chronic renal failure s/p urgent dialysis Anemia s/p transfusion of PRBCs Acute systolic heart failure EF 40-45% by echo Hypertension Acute right iliac DVT on IV heparin Ileus vs partial small bowel obstruction Conservative cardiac management. Subjective Date of service: 12/27/17 Principal diagnosis: Anemia Interval history: Patient is resting in bed comfortably. He has no complaints. No distress noted. Objective Vital Signs Temp Pulse Pulse Pulse Resp Resp BP 12/27/17 08:19 96.0 F L 93 H 18 139/75 12/27/17 08:00 91 H 12/27/17 07:57 12/27/17 04:02 88 124/81 12/27/17 01:53 98.6 F 88 22 124/60 12/26/17 22:58 97 H 142/89 12/26/17 22:00 88 22 12/26/17 20:29 12/26/17 20:03 98.7 F 97 H 22 142/89 12/26/17 20:00 96 H 18 12/26/17 18:50 98.0 F 100 H 18 149/89 12/26/17 18:40 96 H 120/86 12/26/17 18:30 94 H 120/84 12/26/17 18:15 96 H 121/85 12/26/17 18:00 101 H 136/91 12/26/17 17:45 100 H 129/80 12/26/17 17:30 96 H 132/80 12/26/17 17:15 93 H 149/92 12/26/17 17:00 98 H 150/87 12/26/17 16:50 98 H 142/85 12/26/17 16:45 103 H 109/79 12/26/17 16:30 99 H 123/85 12/26/17 16:15 96 H 118/91 12/26/17 16:00 90 135/80 12/26/17 15:45 79 140/79 12/26/17 15:30 82 118/83 12/26/17 15:15 81 146/88 12/26/17 15:10 97.1 F L 74 18 144/82 12/26/17 13:34 97.1 F L 77 20 156/87 12/26/17 10:00 88 18 Pulse Ox 12/27/17 08:19 89 12/27/17 08:00 12/27/17 07:57 92 12/27/17 04:02 12/27/17 01:53 90 12/26/17 22:58 12/26/17 22:00 90 12/26/17 20:29 97 12/26/17 20:03 96 12/26/17 20:00 12/26/17 18:50 12/26/17 18:40 12/26/17 18:30 12/26/17 18:15 12/26/17 18:00 12/26/17 17:45 12/26/17 17:30 12/26/17 17:15 12/26/17 17:00 12/26/17 16:50 12/26/17 16:45 12/26/17 16:30 12/26/17 16:15 12/26/17 16:00 12/26/17 15:45 12/26/17 15:30 12/26/17 15:15 12/26/17 15:10 12/26/17 13:34 98 12/26/17 10:00 99 - Physical Examination General: No Apparent Distress HEENT: Positive: PERRL Cardiac: Positive: Reg Rate and Rhythm Lungs: Positive: Decreased Breath Sounds Neuro: Positive: Grossly Intact Abdomen: Positive: Distended Extremities: Absent: edema - Labs and Meds CBC 12/27/17 Range/Units 05:28 WBC 11.8 H (4.5-11.0) K/mm3 RBC 3.27 L (3.65-5.03) M/mm3 Hgb 8.7 L (11.8-15.2) gm/dl Hct 26.2 L (35.5-45.6) % Plt Count 291 (140-440) K/mm3 Lymph # 1.2 (1.2-5.4) K/mm3 [place] # 0.9 H (0.0-0.8) K/mm3 Eos # 0.1 (0.0-0.4) K/mm3 Baso # 0.1 (0.0-0.1) K/mm3 Comprehensive Metabolic Panel 12/27/17 Range/Units 05:28 Sodium 141 (137-145) mmol/L Potassium 3.1 L (3.6-5.0) mmol/L Chloride 95.0 L (98-107) mmol/L Carbon Dioxide 22 (22-30) mmol/L BUN 64 H (9-20) mg/dL Creatinine 7.0 H (0.8-1.5) mg/dL Glucose 96 (75-100) mg/dL Calcium 8.7 (8.4-10.2) mg/dL - Allied health notes Allied health notes reviewed: nursing
--- NOTE | 2017-12-27 09:33 | Progress Note ---
Assessment and Plan - Patient Problems (1) Ileus Current Visit: Yes Status: Acute Plan to address problem: Patient is stable. He has no abdominal surgical history. This is most likely reaction to his pneumonias. SBFT shows contrast passing all the way to the colon. Removed NGT this AM and ordered diet. His abdomen is completely benign. We will follow along in his care. Please call if there are any questions. time=10min Subjective Date of service: 12/27/17 Patient Reports: Positive: feels better, flatus, other (very hungry today). Negative: nausea, vomiting Objective Vital Signs - 12hr 12/26/17 12/26/17 12/27/17 22:00 22:58 01:53 Temperature 98.6 F Pulse Rate 97 H 88 Pulse Rate [ 88 From Monitor] Respiratory 22 22 Rate Blood Pressure 142/89 124/60 O2 Sat by Pulse 90 90 Oximetry 12/27/17 12/27/17 12/27/17 04:02 07:57 08:00 Temperature Pulse Rate 88 91 H Pulse Rate [ From Monitor] Respiratory Rate Blood Pressure 124/81 O2 Sat by Pulse 92 Oximetry 12/27/17 08:19 Temperature 96.0 F L Pulse Rate 93 H Pulse Rate [ From Monitor] Respiratory 18 Rate Blood Pressure 139/75 O2 Sat by Pulse 89 Oximetry - General physical appearance no distress, no pain, other (pleasant) - Respiratory normal expansion, normal respiratory effort - Abdomen soft, not tender, distended (normal protuberance?) - Integumentary no rash, no growths, no abnormal pigmentation - Labs 12/27/17 05:28 12/27/17 05:28 Diabetes panel 12/27/17 Range/Units 05:28 Sodium 141 (137-145) mmol/L Potassium 3.1 L (3.6-5.0) mmol/L Chloride 95.0 L (98-107) mmol/L Carbon Dioxide 22 (22-30) mmol/L BUN 64 H (9-20) mg/dL Creatinine 7.0 H (0.8-1.5) mg/dL Glucose 96 (75-100) mg/dL Calcium 8.7 (8.4-10.2) mg/dL Calcium panel 12/27/17 Range/Units 05:28 Calcium 8.7 (8.4-10.2) mg/dL Pituitary panel 12/27/17 Range/Units 05:28 Sodium 141 (137-145) mmol/L Potassium 3.1 L (3.6-5.0) mmol/L Chloride 95.0 L (98-107) mmol/L Carbon Dioxide 22 (22-30) mmol/L BUN 64 H (9-20) mg/dL Creatinine 7.0 H (0.8-1.5) mg/dL Glucose 96 (75-100) mg/dL Calcium 8.7 (8.4-10.2) mg/dL Adrenal panel 12/27/17 Range/Units 05:28 Sodium 141 (137-145) mmol/L Potassium 3.1 L (3.6-5.0) mmol/L Chloride 95.0 L (98-107) mmol/L Carbon Dioxide 22 (22-30) mmol/L BUN 64 H (9-20) mg/dL Creatinine 7.0 H (0.8-1.5) mg/dL Glucose 96 (75-100) mg/dL Calcium 8.7 (8.4-10.2) mg/dL - Imaging Abdominal x-ray: image reviewed (SBFT)
--- NOTE | 2017-12-27 11:29 | Gastroenterology Progress Note ---
<EDUARD RODRIGUEZ - Last Filed: 12/27/17 11:35> Assessment and Plan 1.iron deficiency anemia -H/H stable -no active signs of bleeding (on heparin drip) -will need eventual GI workup once able to tolerate PO intake for colon prep 2.abdominal distention -KUB shows ileus vs partial small bowel obstruction -SBFT shows contast passing all the way to the colon -surgery following with no surgical intervention recommended -NG tube now removed -clinically, patient denies abd pain or N/V. Reports passing flatus -okay to start on PO trial with soft diet -limit narcotics -encourage OOB -continue supportive care -will follow Subjective Date of service: 12/27/17 Principal diagnosis: Anemia Interval history: Patient sitting on the side of the bed this am w/o acute distress. NG tube now removed. Denies abd pain, N/V, or signs of bleeding. Reports passing flatus but no recent BM. Objective - Constitutional Vitals: Temp Pulse Resp BP Pulse Ox 96.0 F L 90 20 134/68 89 12/27/17 08:19 12/27/17 11:10 12/27/17 10:00 12/27/17 11:10 12/27/17 10:00 General appearance: no acute distress - Respiratory Respiratory: bilateral: CTA (anterior) - Cardiovascular Rhythm: regular Heart Sounds: Present: S1 & S2 - Gastrointestinal General gastrointestinal: Present: soft, distended, normal bowel sounds - Neurologic Neurological: alert and oriented x3 - Labs CBC & Chem 7: 12/27/17 05:28 12/27/17 05:28 Labs: Laboratory Results - last 24 hr 12/27/17 12/27/17 12/27/17 00:29 05:28 05:28 WBC 11.8 H RBC 3.27 L Hgb 8.7 L Hct 26.2 L MCV 80 L MCH 27 L MCHC 33 RDW 19.6 H Plt Count 291 Lymph % (Auto) 10.1 L [place] % (Auto) 7.7 H Eos % (Auto) 1.1 Baso % (Auto) 0.6 Lymph # 1.2 [place] # 0.9 H Eos # 0.1 Baso # 0.1 Seg Neutrophils % 80.5 H Seg Neutrophils # 9.5 H Heparin Anti-Xa Level Sodium 141 Potassium 3.1 L Chloride 95.0 L Carbon Dioxide 22 Anion Gap 27 BUN 64 H Creatinine 7.0 H Estimated GFR 8 BUN/Creatinine Ratio 9 Glucose 96 POC Glucose 93 Calcium 8.7 12/27/17 08:32 WBC RBC Hgb Hct MCV MCH MCHC RDW Plt Count Lymph % (Auto) [place] % (Auto) Eos % (Auto) Baso % (Auto) Lymph # [place] # Eos # Baso # Seg Neutrophils % Seg Neutrophils # Heparin Anti-Xa Level 0.37 Sodium Potassium Chloride Carbon Dioxide Anion Gap BUN Creatinine Estimated GFR BUN/Creatinine Ratio Glucose POC Glucose Calcium <LYSSA LEARY - Last Filed: 12/27/17 23:15> Assessment and Plan Pt seen and examined. Agree with note above. Abd exam improved and SBFT without significant findings. Trial of clears, and can possible prep tomorrow evening for egd/colon on Monday for ELISE work-up Objective - Constitutional Vitals: Temp Pulse Resp BP Pulse Ox 98.0 F 88 20 180/92 100 12/27/17 20:15 12/27/17 21:18 12/27/17 20:15 12/27/17 21:18 12/27/17 20:15 - Labs CBC & Chem 7: 12/27/17 05:28 12/27/17 05:28 Labs: Laboratory Results - last 24 hr 12/27/17 12/27/17 12/27/17 00:29 05:28 05:28 WBC 11.8 H RBC 3.27 L Hgb 8.7 L Hct 26.2 L MCV 80 L MCH 27 L MCHC 33 RDW 19.6 H Plt Count 291 Lymph % (Auto) 10.1 L Douglas % (Auto) 7.7 H Eos % (Auto) 1.1 Baso % (Auto) 0.6 Lymph # 1.2 Douglas # 0.9 H Eos # 0.1 Baso # 0.1 Seg Neutrophils % 80.5 H Seg Neutrophils # 9.5 H Heparin Anti-Xa Level Sodium 141 Potassium 3.1 L Chloride 95.0 L Carbon Dioxide 22 Anion Gap 27 BUN 64 H Creatinine 7.0 H Estimated GFR 8 BUN/Creatinine Ratio 9 Glucose 96 POC Glucose 93 Calcium 8.7 12/27/17 12/27/17 12/27/17 08:32 11:25 16:26 WBC RBC Hgb Hct MCV MCH MCHC RDW Plt Count Lymph % (Auto) Douglas % (Auto) Eos % (Auto) Baso % (Auto) Lymph # Douglas # Eos # Baso # Seg Neutrophils % Seg Neutrophils # Heparin Anti-Xa Level 0.37 Sodium Potassium Chloride Carbon Dioxide Anion Gap BUN Creatinine Estimated GFR BUN/Creatinine Ratio Glucose POC Glucose 182 H 126 H Calcium
--- NOTE | 2017-12-27 13:34 | Progress Note ---
Assessment and Plan 67 y/o male with acute respiratory failure secondary to pulmonary edema, likely from acute renal failure and found to be profoundly anemic on admission. 1. Pulm status stable. Will order RT to wean FiO2 to off for sats >88% Subjective Date of service: 12/27/17 Principal diagnosis: Anemia Interval history: No acute events. NG tube has been removed and patient started on regular diet. Up sitting on side of bed and eating food. States breathing is well and nasal cannula is not in nares. Remainder is negative. Objective Vital Signs - 12hr 12/27/17 12/27/17 12/27/17 01:53 04:02 07:57 Temperature 98.6 F Pulse Rate 88 88 Pulse Rate [ From Monitor] Respiratory 22 Rate Blood Pressure 124/60 124/81 O2 Sat by Pulse 90 92 Oximetry 12/27/17 12/27/17 12/27/17 08:00 08:19 10:00 Temperature 96.0 F L Pulse Rate 91 H 93 H Pulse Rate [ 89 From Monitor] Respiratory 18 20 Rate Blood Pressure 139/75 O2 Sat by Pulse 89 89 Oximetry 12/27/17 11:10 Temperature Pulse Rate 90 Pulse Rate [ From Monitor] Respiratory Rate Blood Pressure 134/68 O2 Sat by Pulse Oximetry Constitutional: no acute distress, alert ENT: other (NG tube in place) Neck: supple Effort: normal Ascultation: Bilateral: clear, diminished breath sounds, wheezes (faint, otherwise CTA), rales (right greater than left, mild), rhonchi (rare) Percussion: Bilateral: not dull Cardiovascular: regular rate and rhythm Gastrointestinal: normoactive bowel sounds, soft, non-tender, other (no rebound tenderness, bowel sounds present,still looks somewhat distended) Integumentary: normal Extremities: no edema, pink and warm, pulses normal Neurologic: normal mental status, non-focal exam, pupils equal and round CBC and BMP: 12/27/17 05:28 12/27/17 05:28 ABG, PT/INR, D-dimer: ABG POC ABG pH 7.446 (7.35-7.45) 12/21/17 03:44 POC ABG pCO2 27.6 (35-45) L 12/21/17 03:44 POC ABG pO2 90 (80-105) 12/21/17 03:44 POC ABG HCO3 19.0 12/21/17 03:44 POC ABG Total CO2 20 12/21/17 03:44 POC ABG O2 Sat 97 12/21/17 03:44 PT/INR, D-dimer PT 14.3 Sec. (12.2-14.9) 12/19/17 19:17 INR 1.05 (0.87-1.13) 12/19/17 19:17 D-Dimer 1108.83 ng/mlDDU (0-234) H 12/15/17 17:16 Abnormal lab findings: Abnormal Labs 12/15/17 12/15/17 12/15/17 17:16 17:16 17:16 WBC 16.7 H RBC 2.12 L Hgb 4.9 L* Hct 16.0 L* MCV 76 L MCH 23 L MCHC 30 L RDW 17.3 H Plt Count 445 H Lymph % (Auto) 11.3 L Brooke % (Auto) 7.4 H Brooke # 1.2 H Seg Neutrophils % 80.2 H Seg Neuts % (Manual) Lymphocytes % (Manual) Monocytes % (Manual) Seg Neutrophils # 13.4 H Seg Neutrophils # Man Lymphocytes # (Manual) Monocytes # (Manual) D-Dimer 1108.83 H Heparin Anti-Xa Level POC ABG pH POC ABG pCO2 POC ABG pO2 VBG pH Sodium Potassium 5.1 H Chloride Carbon Dioxide 18 L BUN 76 H Creatinine 7.1 H Glucose 148 H POC Glucose Calcium 8.2 L Phosphorus Iron Total Creatine Kinase 736 H CK-MB (CK-2) 7.7 H Troponin T 0.067 H NT-Pro-B Natriuret Pep Albumin Triglycerides 206 H HDL Cholesterol 29 L Urine WBC (Auto) Urine Creatinine Urine Total Protein Crossmatch 12/15/17 12/15/17 12/15/17 17:16 17:45 18:01 WBC RBC Hgb Hct MCV MCH MCHC RDW Plt Count Lymph % (Auto) Brooke % (Auto) Brooke # Seg Neutrophils % Seg Neuts % (Manual) Lymphocytes % (Manual) Monocytes % (Manual) Seg Neutrophils # Seg Neutrophils # Man Lymphocytes # (Manual) Monocytes # (Manual) D-Dimer Heparin Anti-Xa Level POC ABG pH POC ABG pCO2 POC ABG pO2 VBG pH 7.204 L Sodium Potassium Chloride Carbon Dioxide BUN Creatinine Glucose POC Glucose Calcium Phosphorus Iron Total Creatine Kinase CK-MB (CK-2) Troponin T NT-Pro-B Natriuret Pep 83549 H Albumin Triglycerides HDL Cholesterol Urine WBC (Auto) Urine Creatinine Urine Total Protein Crossmatch See Detail 12/15/17 12/15/17 12/16/17 18:32 23:26 00:24 WBC RBC Hgb Hct MCV MCH MCHC RDW Plt Count Lymph % (Auto) Brooke % (Auto) Brooke # Seg Neutrophils % Seg Neuts % (Manual) Lymphocytes % (Manual) Monocytes % (Manual) Seg Neutrophils # Seg Neutrophils # Man Lymphocytes # (Manual) Monocytes # (Manual) D-Dimer Heparin Anti-Xa Level POC ABG pH 7.324 L 7.142 L POC ABG pCO2 33.6 L 50.4 H POC ABG pO2 110 H 107 H VBG pH Sodium Potassium Chloride Carbon Dioxide BUN Creatinine Glucose POC Glucose Calcium Phosphorus Iron 37 L Total Creatine Kinase CK-MB (CK-2) Troponin T NT-Pro-B Natriuret Pep Albumin Triglycerides HDL Cholesterol Urine WBC (Auto) Urine Creatinine Urine Total Protein Crossmatch 12/16/17 12/16/17 12/16/17 03:41 03:43 03:43 WBC 16.3 H RBC 3.01 L Hgb 7.5 L Hct 24.3 L D MCV 81 L MCH 25 L MCHC 31 L RDW 17.7 H Plt Count Lymph % (Auto) 7.9 L Brooke % (Auto) 7.8 H Brooke # 1.3 H Seg Neutrophils % 83.7 H Seg Neuts % (Manual) Lymphocytes % (Manual) Monocytes % (Manual) Seg Neutrophils # 13.7 H Seg Neutrophils # Man Lymphocytes # (Manual) Monocytes # (Manual) D-Dimer Heparin Anti-Xa Level POC ABG pH 7.211 L POC ABG pCO2 45.3 H POC ABG pO2 123 H VBG pH Sodium Potassium 5.3 H Chloride Carbon Dioxide 16 L BUN 76 H Creatinine 7.5 H Glucose 121 H POC Glucose Calcium 7.9 L Phosphorus Iron Total Creatine Kinase CK-MB (CK-2) Troponin T NT-Pro-B Natriuret Pep Albumin 3.6 L Triglycerides HDL Cholesterol Urine WBC (Auto) Urine Creatinine Urine Total Protein Crossmatch 12/16/17 12/16/17 12/16/17 10:11 11:10 11:41 WBC 17.6 H RBC 3.16 L Hgb 7.9 L Hct 24.5 L MCV 78 L MCH 25 L MCHC RDW 17.7 H Plt Count Lymph % (Auto) 8.6 L Brooke % (Auto) Brooke # 1.3 H Seg Neutrophils % 83.7 H Seg Neuts % (Manual) Lymphocytes % (Manual) Monocytes % (Manual) Seg Neutrophils # 14.7 H Seg Neutrophils # Man Lymphocytes # (Manual) Monocytes # (Manual) D-Dimer Heparin Anti-Xa Level POC ABG pH 7.491 H POC ABG pCO2 POC ABG pO2 56 L VBG pH Sodium Potassium Chloride Carbon Dioxide BUN Creatinine Glucose POC Glucose 127 H Calcium Phosphorus Iron Total Creatine Kinase CK-MB (CK-2) Troponin T NT-Pro-B Natriuret Pep Albumin Triglycerides HDL Cholesterol Urine WBC (Auto) Urine Creatinine Urine Total Protein Crossmatch 12/16/17 12/16/17 12/16/17 12:05 12:05 12:15 WBC RBC Hgb 7.4 L Hct 22.8 L MCV MCH MCHC RDW Plt Count Lymph % (Auto) Brooke % (Auto) Brooke # Seg Neutrophils % Seg Neuts % (Manual) Lymphocytes % (Manual) Monocytes % (Manual) Seg Neutrophils # Seg Neutrophils # Man Lymphocytes # (Manual) Monocytes # (Manual) D-Dimer Heparin Anti-Xa Level POC ABG pH POC ABG pCO2 POC ABG pO2 VBG pH Sodium Potassium Chloride Carbon Dioxide BUN Creatinine Glucose POC Glucose Calcium Phosphorus Iron Total Creatine Kinase CK-MB (CK-2) Troponin T NT-Pro-B Natriuret Pep Albumin Triglycerides HDL Cholesterol Urine WBC (Auto) > 182.0 H Urine Creatinine 81.7 H Urine Total Protein 493 H Crossmatch 12/16/17 12/16/17 12/17/17 17:52 18:08 00:11 WBC RBC Hgb 6.6 L 6.9 L Hct 20.6 L 20.8 L MCV MCH MCHC RDW Plt Count Lymph % (Auto) Brooke % (Auto) Brooke # Seg Neutrophils % Seg Neuts % (Manual) Lymphocytes % (Manual) Monocytes % (Manual) Seg Neutrophils # Seg Neutrophils # Man Lymphocytes # (Manual) Monocytes # (Manual) D-Dimer Heparin Anti-Xa Level POC ABG pH POC ABG pCO2 POC ABG pO2 VBG pH Sodium Potassium Chloride Carbon Dioxide BUN Creatinine Glucose POC Glucose 127 H Calcium Phosphorus Iron Total Creatine Kinase CK-MB (CK-2) Troponin T NT-Pro-B Natriuret Pep Albumin Triglycerides HDL Cholesterol Urine WBC (Auto) Urine Creatinine Urine Total Protein Crossmatch 12/17/17 12/17/17 12/17/17 00:24 04:03 07:54 WBC 13.1 H RBC 3.06 L Hgb 8.1 L Hct 24.3 L MCV 79 L MCH 26 L MCHC RDW 18.6 H Plt Count Lymph % (Auto) 11.9 L Brooke % (Auto) 8.6 H Brooke # 1.1 H Seg Neutrophils % 77.9 H Seg Neuts % (Manual) Lymphocytes % (Manual) Monocytes % (Manual) Seg Neutrophils # 10.2 H Seg Neutrophils # Man Lymphocytes # (Manual) Monocytes # (Manual) D-Dimer Heparin Anti-Xa Level POC ABG pH 7.453 H POC ABG pCO2 33.6 L POC ABG pO2 VBG pH Sodium Potassium Chloride Carbon Dioxide BUN Creatinine Glucose POC Glucose 126 H Calcium Phosphorus Iron Total Creatine Kinase CK-MB (CK-2) Troponin T NT-Pro-B Natriuret Pep Albumin Triglycerides HDL Cholesterol Urine WBC (Auto) Urine Creatinine Urine Total Protein Crossmatch 12/17/17 12/17/17 12/17/17 07:54 09:22 11:55 WBC RBC Hgb Hct MCV MCH MCHC RDW Plt Count Lymph % (Auto) Brooke % (Auto) Brooke # Seg Neutrophils % Seg Neuts % (Manual) Lymphocytes % (Manual) Monocytes % (Manual) Seg Neutrophils # Seg Neutrophils # Man Lymphocytes # (Manual) Monocytes # (Manual) D-Dimer Heparin Anti-Xa Level POC ABG pH POC ABG pCO2 POC ABG pO2 VBG pH Sodium Potassium 3.4 L D Chloride Carbon Dioxide 21 L BUN 65 H Creatinine 6.4 H Glucose 133 H POC Glucose 112 H 119 H Calcium Phosphorus Iron Total Creatine Kinase CK-MB (CK-2) Troponin T NT-Pro-B Natriuret Pep Albumin Triglycerides HDL Cholesterol Urine WBC (Auto) Urine Creatinine Urine Total Protein Crossmatch 12/17/17 12/17/17 12/17/17 13:07 17:15 17:29 WBC RBC Hgb 9.3 L 9.8 L Hct 27.9 L 29.8 L MCV MCH MCHC RDW Plt Count Lymph % (Auto) Brooke % (Auto) Brooke # Seg Neutrophils % Seg Neuts % (Manual) Lymphocytes % (Manual) Monocytes % (Manual) Seg Neutrophils # Seg Neutrophils # Man Lymphocytes # (Manual) Monocytes # (Manual) D-Dimer Heparin Anti-Xa Level POC ABG pH POC ABG pCO2 POC ABG pO2 VBG pH Sodium Potassium Chloride Carbon Dioxide BUN Creatinine Glucose POC Glucose 158 H Calcium Phosphorus Iron Total Creatine Kinase CK-MB (CK-2) Troponin T NT-Pro-B Natriuret Pep Albumin Triglycerides HDL Cholesterol Urine WBC (Auto) Urine Creatinine Urine Total Protein Crossmatch 12/18/17 12/18/17 12/18/17 00:03 00:28 04:44 WBC RBC Hgb 9.9 L Hct 29.9 L MCV MCH MCHC RDW Plt Count Lymph % (Auto) Brooke % (Auto) Brooke # Seg Neutrophils % Seg Neuts % (Manual) Lymphocytes % (Manual) Monocytes % (Manual) Seg Neutrophils # Seg Neutrophils # Man Lymphocytes # (Manual) Monocytes # (Manual) D-Dimer Heparin Anti-Xa Level POC ABG pH 7.497 H POC ABG pCO2 27.0 L POC ABG pO2 136 H VBG pH Sodium Potassium Chloride Carbon Dioxide BUN Creatinine Glucose POC Glucose 109 H Calcium Phosphorus Iron Total Creatine Kinase CK-MB (CK-2) Troponin T NT-Pro-B Natriuret Pep Albumin Triglycerides HDL Cholesterol Urine WBC (Auto) Urine Creatinine Urine Total Protein Crossmatch 12/18/17 12/18/17 12/18/17 05:12 05:12 11:55 WBC 14.2 H RBC Hgb 9.8 L Hct 29.7 L MCV 81 L MCH 27 L MCHC RDW 18.8 H Plt Count Lymph % (Auto) 12.3 L Brooke % (Auto) 9.4 H Brooke # 1.3 H Seg Neutrophils % 75.5 H Seg Neuts % (Manual) Lymphocytes % (Manual) Monocytes % (Manual) Seg Neutrophils # 10.7 H Seg Neutrophils # Man Lymphocytes # (Manual) Monocytes # (Manual) D-Dimer Heparin Anti-Xa Level POC ABG pH POC ABG pCO2 POC ABG pO2 VBG pH Sodium Potassium Chloride Carbon Dioxide 19 L BUN 55 H Creatinine 6.0 H Glucose 112 H POC Glucose 126 H Calcium Phosphorus Iron Total Creatine Kinase CK-MB (CK-2) Troponin T NT-Pro-B Natriuret Pep Albumin Triglycerides HDL Cholesterol Urine WBC (Auto) Urine Creatinine Urine Total Protein Crossmatch 12/18/17 12/19/17 12/19/17 21:34 05:01 05:10 WBC 11.9 H RBC Hgb 9.5 L Hct 30.1 L MCV 82 L MCH 26 L MCHC RDW 19.0 H Plt Count Lymph % (Auto) Brooke % (Auto) Brooke # Seg Neutrophils % Seg Neuts % (Manual) Lymphocytes % (Manual) Monocytes % (Manual) Seg Neutrophils # Seg Neutrophils # Man Lymphocytes # (Manual) Monocytes # (Manual) D-Dimer Heparin Anti-Xa Level POC ABG pH POC ABG pCO2 29.8 L POC ABG pO2 116 H VBG pH Sodium Potassium Chloride Carbon Dioxide BUN Creatinine Glucose POC Glucose 120 H Calcium Phosphorus Iron Total Creatine Kinase CK-MB (CK-2) Troponin T NT-Pro-B Natriuret Pep Albumin Triglycerides HDL Cholesterol Urine WBC (Auto) Urine Creatinine Urine Total Protein Crossmatch 12/19/17 12/19/17 12/19/17 05:10 05:10 07:15 WBC RBC Hgb Hct MCV MCH MCHC RDW Plt Count Lymph % (Auto) Brooke % (Auto) Brooke # Seg Neutrophils % Seg Neuts % (Manual) Lymphocytes % (Manual) Monocytes % (Manual) Seg Neutrophils # Seg Neutrophils # Man Lymphocytes # (Manual) Monocytes # (Manual) D-Dimer Heparin Anti-Xa Level POC ABG pH POC ABG pCO2 POC ABG pO2 VBG pH Sodium Potassium Chloride 95.9 L Carbon Dioxide 18 L BUN 90 H Creatinine 9.2 H D Glucose 140 H POC Glucose 130 H Calcium Phosphorus 11.90 H Iron Total Creatine Kinase CK-MB (CK-2) Troponin T NT-Pro-B Natriuret Pep Albumin Triglycerides 440 H HDL Cholesterol Urine WBC (Auto) Urine Creatinine Urine Total Protein Crossmatch 12/19/17 12/19/17 12/19/17 11:52 15:36 19:17 WBC RBC Hgb 10.3 L Hct 31.1 L MCV MCH MCHC RDW Plt Count Lymph % (Auto) Brooke % (Auto) Brooke # Seg Neutrophils % Seg Neuts % (Manual) Lymphocytes % (Manual) Monocytes % (Manual) Seg Neutrophils # Seg Neutrophils # Man Lymphocytes # (Manual) Monocytes # (Manual) D-Dimer Heparin Anti-Xa Level POC ABG pH POC ABG pCO2 POC ABG pO2 VBG pH Sodium Potassium Chloride Carbon Dioxide BUN Creatinine Glucose POC Glucose 148 H 127 H Calcium Phosphorus Iron Total Creatine Kinase CK-MB (CK-2) Troponin T NT-Pro-B Natriuret Pep Albumin Triglycerides HDL Cholesterol Urine WBC (Auto) Urine Creatinine Urine Total Protein Crossmatch 12/19/17 12/19/17 12/20/17 19:17 23:01 02:07 WBC RBC Hgb Hct MCV MCH MCHC RDW Plt Count Lymph % (Auto) Brooke % (Auto) Brooke # Seg Neutrophils % Seg Neuts % (Manual) Lymphocytes % (Manual) Monocytes % (Manual) Seg Neutrophils # Seg Neutrophils # Man Lymphocytes # (Manual) Monocytes # (Manual) D-Dimer Heparin Anti-Xa Level < 0.10 L 0.77 H POC ABG pH POC ABG pCO2 POC ABG pO2 VBG pH Sodium Potassium Chloride Carbon Dioxide BUN Creatinine Glucose POC Glucose 151 H Calcium Phosphorus Iron Total Creatine Kinase CK-MB (CK-2) Troponin T NT-Pro-B Natriuret Pep Albumin Triglycerides HDL Cholesterol Urine WBC (Auto) Urine Creatinine Urine Total Protein Crossmatch 12/20/17 12/20/17 12/20/17 02:09 04:03 07:52 WBC RBC Hgb Hct MCV MCH MCHC RDW Plt Count Lymph % (Auto) Brooke % (Auto) Brooke # Seg Neutrophils % Seg Neuts % (Manual) Lymphocytes % (Manual) Monocytes % (Manual) Seg Neutrophils # Seg Neutrophils # Man Lymphocytes # (Manual) Monocytes # (Manual) D-Dimer Heparin Anti-Xa Level POC ABG pH 7.308 L POC ABG pCO2 31.1 L POC ABG pO2 133 H VBG pH Sodium 147 H Potassium Chloride 96.9 L Carbon Dioxide 14 L BUN 116 H Creatinine 11.6 H Glucose 109 H POC Glucose 131 H Calcium Phosphorus Iron Total Creatine Kinase CK-MB (CK-2) Troponin T NT-Pro-B Natriuret Pep Albumin Triglycerides HDL Cholesterol Urine WBC (Auto) Urine Creatinine Urine Total Protein Crossmatch 12/20/17 12/20/17 12/20/17 11:11 11:43 16:08 WBC RBC Hgb Hct MCV MCH MCHC RDW Plt Count Lymph % (Auto) Brooke % (Auto) Brooke # Seg Neutrophils % Seg Neuts % (Manual) Lymphocytes % (Manual) Monocytes % (Manual) Seg Neutrophils # Seg Neutrophils # Man Lymphocytes # (Manual) Monocytes # (Manual) D-Dimer Heparin Anti-Xa Level POC ABG pH 7.266 L POC ABG pCO2 32.6 L POC ABG pO2 VBG pH Sodium Potassium Chloride Carbon Dioxide BUN Creatinine Glucose POC Glucose 143 H 159 H Calcium Phosphorus Iron Total Creatine Kinase CK-MB (CK-2) Troponin T NT-Pro-B Natriuret Pep Albumin Triglycerides HDL Cholesterol Urine WBC (Auto) Urine Creatinine Urine Total Protein Crossmatch 12/21/17 12/21/17 12/21/17 03:44 04:45 04:45 WBC 13.7 H RBC Hgb 10.8 L Hct 33.8 L MCV 81 L MCH 26 L MCHC RDW 19.4 H Plt Count Lymph % (Auto) Brooke % (Auto) Brooke # Seg Neutrophils % Seg Neuts % (Manual) 84.0 H Lymphocytes % (Manual) 6.0 L Monocytes % (Manual) 9.0 H Seg Neutrophils # Seg Neutrophils # Man 11.5 H Lymphocytes # (Manual) 0.8 L Monocytes # (Manual) 1.2 H D-Dimer Heparin Anti-Xa Level POC ABG pH POC ABG pCO2 27.6 L POC ABG pO2 VBG pH Sodium Potassium Chloride 93.9 L Carbon Dioxide 19 L BUN 82 H Creatinine 8.2 H Glucose 113 H POC Glucose Calcium Phosphorus Iron Total Creatine Kinase CK-MB (CK-2) Troponin T NT-Pro-B Natriuret Pep Albumin Triglycerides HDL Cholesterol Urine WBC (Auto) Urine Creatinine Urine Total Protein Crossmatch 12/21/17 12/21/17 12/21/17 08:08 09:35 12:11 WBC RBC Hgb Hct MCV MCH MCHC RDW Plt Count Lymph % (Auto) Brooke % (Auto) Brooke # Seg Neutrophils % Seg Neuts % (Manual) Lymphocytes % (Manual) Monocytes % (Manual) Seg Neutrophils # Seg Neutrophils # Man Lymphocytes # (Manual) Monocytes # (Manual) D-Dimer Heparin Anti-Xa Level 0.80 H POC ABG pH POC ABG pCO2 POC ABG pO2 VBG pH Sodium Potassium Chloride Carbon Dioxide BUN Creatinine Glucose POC Glucose 123 H 139 H Calcium Phosphorus Iron Total Creatine Kinase CK-MB (CK-2) Troponin T NT-Pro-B Natriuret Pep Albumin Triglycerides HDL Cholesterol Urine WBC (Auto) Urine Creatinine Urine Total Protein Crossmatch 12/21/17 12/21/17 12/21/17 15:51 17:12 23:18 WBC RBC Hgb Hct MCV MCH MCHC RDW Plt Count Lymph % (Auto) Brooke % (Auto) Brooke # Seg Neutrophils % Seg Neuts % (Manual) Lymphocytes % (Manual) Monocytes % (Manual) Seg Neutrophils # Seg Neutrophils # Man Lymphocytes # (Manual) Monocytes # (Manual) D-Dimer Heparin Anti-Xa Level 1.17 H POC ABG pH POC ABG pCO2 POC ABG pO2 VBG pH Sodium Potassium Chloride Carbon Dioxide BUN Creatinine Glucose POC Glucose 169 H 115 H Calcium Phosphorus Iron Total Creatine Kinase CK-MB (CK-2) Troponin T NT-Pro-B Natriuret Pep Albumin Triglycerides HDL Cholesterol Urine WBC (Auto) Urine Creatinine Urine Total Protein Crossmatch 12/22/17 12/23/17 12/23/17 18:55 00:05 04:35 WBC 12.7 H RBC 3.64 L Hgb 9.8 L Hct 30.0 L MCV 83 L MCH 27 L MCHC RDW 18.9 H Plt Count Lymph % (Auto) 10.3 L Brooke % (Auto) 10.3 H Brooke # 1.3 H Seg Neutrophils % 77.5 H Seg Neuts % (Manual) Lymphocytes % (Manual) Monocytes % (Manual) Seg Neutrophils # 9.9 H Seg Neutrophils # Man Lymphocytes # (Manual) Monocytes # (Manual) D-Dimer Heparin Anti-Xa Level POC ABG pH POC ABG pCO2 POC ABG pO2 VBG pH Sodium Potassium Chloride Carbon Dioxide BUN Creatinine Glucose POC Glucose 120 H 108 H Calcium Phosphorus Iron Total Creatine Kinase CK-MB (CK-2) Troponin T NT-Pro-B Natriuret Pep Albumin Triglycerides HDL Cholesterol Urine WBC (Auto) Urine Creatinine Urine Total Protein Crossmatch 12/23/17 12/23/17 12/23/17 04:35 04:35 06:27 WBC RBC Hgb Hct MCV MCH MCHC RDW Plt Count Lymph % (Auto) Brooke % (Auto) Brooke # Seg Neutrophils % Seg Neuts % (Manual) Lymphocytes % (Manual) Monocytes % (Manual) Seg Neutrophils # Seg Neutrophils # Man Lymphocytes # (Manual) Monocytes # (Manual) D-Dimer Heparin Anti-Xa Level 0.24 L POC ABG pH POC ABG pCO2 POC ABG pO2 VBG pH Sodium Potassium Chloride 88.9 L Carbon Dioxide 16 L BUN 107 H Creatinine 9.8 H Glucose 140 H POC Glucose 143 H Calcium Phosphorus Iron Total Creatine Kinase CK-MB (CK-2) Troponin T NT-Pro-B Natriuret Pep Albumin Triglycerides HDL Cholesterol Urine WBC (Auto) Urine Creatinine Urine Total Protein Crossmatch 12/23/17 12/24/17 12/24/17 11:55 00:00 04:40 WBC 13.7 H RBC Hgb 9.8 L Hct 30.4 L MCV 81 L MCH 26 L MCHC RDW 19.1 H Plt Count Lymph % (Auto) 10.7 L Brooke % (Auto) 12.2 H Brooke # 1.7 H Seg Neutrophils % 75.0 H Seg Neuts % (Manual) Lymphocytes % (Manual) Monocytes % (Manual) Seg Neutrophils # 10.3 H Seg Neutrophils # Man Lymphocytes # (Manual) Monocytes # (Manual) D-Dimer Heparin Anti-Xa Level POC ABG pH POC ABG pCO2 POC ABG pO2 VBG pH Sodium Potassium Chloride Carbon Dioxide BUN Creatinine Glucose POC Glucose 161 H 143 H Calcium Phosphorus Iron Total Creatine Kinase CK-MB (CK-2) Troponin T NT-Pro-B Natriuret Pep Albumin Triglycerides HDL Cholesterol Urine WBC (Auto) Urine Creatinine Urine Total Protein Crossmatch 12/24/17 12/24/17 12/24/17 04:40 08:16 11:11 WBC RBC Hgb Hct MCV MCH MCHC RDW Plt Count Lymph % (Auto) Brooke % (Auto) Brooke # Seg Neutrophils % Seg Neuts % (Manual) Lymphocytes % (Manual) Monocytes % (Manual) Seg Neutrophils # Seg Neutrophils # Man Lymphocytes # (Manual) Monocytes # (Manual) D-Dimer Heparin Anti-Xa Level POC ABG pH POC ABG pCO2 POC ABG pO2 VBG pH Sodium Potassium 3.5 L D Chloride 96.8 L Carbon Dioxide 21 L BUN 52 H Creatinine 6.0 H Glucose 131 H POC Glucose 120 H 120 H Calcium Phosphorus Iron Total Creatine Kinase CK-MB (CK-2) Troponin T NT-Pro-B Natriuret Pep Albumin Triglycerides HDL Cholesterol Urine WBC (Auto) Urine Creatinine Urine Total Protein Crossmatch 12/24/17 12/24/17 12/25/17 13:33 16:07 00:45 WBC RBC Hgb Hct MCV MCH MCHC RDW Plt Count Lymph % (Auto) Brooke % (Auto) Brooke # Seg Neutrophils % Seg Neuts % (Manual) Lymphocytes % (Manual) Monocytes % (Manual) Seg Neutrophils # Seg Neutrophils # Man Lymphocytes # (Manual) Monocytes # (Manual) D-Dimer Heparin Anti-Xa Level POC ABG pH POC ABG pCO2 POC ABG pO2 VBG pH Sodium Potassium Chloride Carbon Dioxide BUN Creatinine Glucose POC Glucose 125 H 122 H 155 H Calcium Phosphorus Iron Total Creatine Kinase CK-MB (CK-2) Troponin T NT-Pro-B Natriuret Pep Albumin Triglycerides HDL Cholesterol Urine WBC (Auto) Urine Creatinine Urine Total Protein Crossmatch 12/25/17 12/25/17 12/25/17 04:29 04:29 05:19 WBC 12.2 H RBC Hgb 9.8 L Hct 31.2 L MCV 82 L MCH 26 L MCHC 31 L RDW 19.3 H Plt Count Lymph % (Auto) 10.5 L Brooke % (Auto) 12.1 H Brooke # 1.5 H Seg Neutrophils % 75.8 H Seg Neuts % (Manual) Lymphocytes % (Manual) Monocytes % (Manual) Seg Neutrophils # 9.3 H Seg Neutrophils # Man Lymphocytes # (Manual) Monocytes # (Manual) D-Dimer Heparin Anti-Xa Level POC ABG pH POC ABG pCO2 POC ABG pO2 VBG pH Sodium Potassium Chloride 96.1 L Carbon Dioxide 19 L BUN 75 H Creatinine 8.5 H Glucose 143 H POC Glucose 145 H Calcium Phosphorus Iron Total Creatine Kinase CK-MB (CK-2) Troponin T NT-Pro-B Natriuret Pep Albumin Triglycerides HDL Cholesterol Urine WBC (Auto) Urine Creatinine Urine Total Protein Crossmatch 12/25/17 12/25/17 12/26/17 12:02 22:36 00:08 WBC RBC Hgb Hct MCV MCH MCHC RDW Plt Count Lymph % (Auto) Brooke % (Auto) Brooke # Seg Neutrophils % Seg Neuts % (Manual) Lymphocytes % (Manual) Monocytes % (Manual) Seg Neutrophils # Seg Neutrophils # Man Lymphocytes # (Manual) Monocytes # (Manual) D-Dimer Heparin Anti-Xa Level 1.29 H POC ABG pH POC ABG pCO2 POC ABG pO2 VBG pH Sodium Potassium Chloride Carbon Dioxide BUN Creatinine Glucose POC Glucose 189 H 115 H Calcium Phosphorus Iron Total Creatine Kinase CK-MB (CK-2) Troponin T NT-Pro-B Natriuret Pep Albumin Triglycerides HDL Cholesterol Urine WBC (Auto) Urine Creatinine Urine Total Protein Crossmatch 12/26/17 12/26/17 12/27/17 03:29 03:29 05:28 WBC 12.2 H 11.8 H RBC 3.47 L 3.27 L Hgb 9.3 L 8.7 L Hct 28.6 L 26.2 L MCV 83 L 80 L MCH 27 L 27 L MCHC RDW 19.5 H 19.6 H Plt Count Lymph % (Auto) 11.8 L 10.1 L Brooke % (Auto) 10.3 H 7.7 H Brooke # 1.3 H 0.9 H Seg Neutrophils % 75.3 H 80.5 H Seg Neuts % (Manual) Lymphocytes % (Manual) Monocytes % (Manual) Seg Neutrophils # 9.2 H 9.5 H Seg Neutrophils # Man Lymphocytes # (Manual) Monocytes # (Manual) D-Dimer Heparin Anti-Xa Level POC ABG pH POC ABG pCO2 POC ABG pO2 VBG pH Sodium Potassium Chloride 92.7 L Carbon Dioxide 18 L BUN 90 H Creatinine 10.2 H Glucose 104 H POC Glucose Calcium Phosphorus Iron Total Creatine Kinase CK-MB (CK-2) Troponin T NT-Pro-B Natriuret Pep Albumin Triglycerides HDL Cholesterol Urine WBC (Auto) Urine Creatinine Urine Total Protein Crossmatch 12/27/17 12/27/17 05:28 11:25 WBC RBC Hgb Hct MCV MCH MCHC RDW Plt Count Lymph % (Auto) Brooke % (Auto) Brooke # Seg Neutrophils % Seg Neuts % (Manual) Lymphocytes % (Manual) Monocytes % (Manual) Seg Neutrophils # Seg Neutrophils # Man Lymphocytes # (Manual) Monocytes # (Manual) D-Dimer Heparin Anti-Xa Level POC ABG pH POC ABG pCO2 POC ABG pO2 VBG pH Sodium Potassium 3.1 L Chloride 95.0 L Carbon Dioxide BUN 64 H Creatinine 7.0 H Glucose POC Glucose 182 H Calcium Phosphorus Iron Total Creatine Kinase CK-MB (CK-2) Troponin T NT-Pro-B Natriuret Pep Albumin Triglycerides HDL Cholesterol Urine WBC (Auto) Urine Creatinine Urine Total Protein Crossmatch Allied health notes reviewed: nursing
--- NOTE | 2017-12-27 13:46 | Fluoroscopy Report ---
SMALL BOWEL SERIES: INDICATION: Ileus versus partial small bowel obstruction. COMPARISON: None similar. IMAGES/CINE CLIPS: 12 FINDINGS: Small bowel series performed. [place] Farmer view demonstrates overall nonobstructive bowel gas pattern, though few air containing small bowel loops in the left hemiabdomen medially demonstrate caliber ranging between 2.4-3.8 cm with slightly prominent mucosal pattern. Few left pelvic phleboliths. Demineralized bones with multilevel lumbar degenerative changes. An esophagogastric tube tip about the gastric pylorus or even the duodenal bulb also seen. EKG leads. Serial abdominal radiographs subsequently obtained after administration of oral contrast and demonstrate normal initial antegrade progression with some slowing down after reaching the mid small bowel as on 4 hour image. The 12 hour radiograph demonstrates colonic contrast with overall small bowel transit time estimated at approximately 10-11 hours. No focal suspicious abnormalities noted, to the extent assessed. CONCLUSION: No evidence of small bowel obstruction, though somewhat delayed small bowel transit time may represent mild ileus. Please correlate. Thank you for the opportunity to participate in this patient's care.
[2017-12-27] MEDS: HEPARIN/ 0.45% NACL-25,000 UNIT/500 ML 25,000 UNIT/500 ML BAG IV SCH (14:52)
[2017-12-27] MEDS ORDERED: K-DUR PO ONE (15:30)
[2017-12-28 03:22] LABS: Basophils # (Auto) 0.1 K/mm3 (0.0-0.1); Basophils % (Auto) 0.4 % (0.0-1.8); Eosinophils # (Auto) 0.1 K/mm3 (0.0-0.4); Eosinophils % (Auto) 0.6 % (0.0-4.3); Hematocrit 28.5 % (35.5-45.6); Hemoglobin 9.2 gm/dl (11.8-15.2); Lymphocytes # (Auto) 1.4 K/mm3 (1.2-5.4); Mean Corpuscular HGB Conc 32 % (32-34); Mean Corpuscular Hemoglobin 26 pg (28-32); Mean Corpuscular Volume 81 fl (84-94); Monocytes # (Auto) 1.2 K/mm3 (0.0-0.8); Monocytes % (Auto) 6.2 % (0.0-7.3); Platelet Count 310 K/mm3 (140-440); Red Blood Count 3.52 M/mm3 (3.65-5.03); Red Cell Distribution Width 19.7 % (13.2-15.2)
[2017-12-28] MEDS: LOPRESSOR IV SCH ×3 (03:31→20:53)
[2017-12-28 03:40] LABS: Albumin 3.3 g/dL (3.9-5); Calcium 8.2 mg/dL (8.4-10.2)
--- NOTE | 2017-12-28 06:43 | Progress Note ---
Assessment and Plan - Patient Problems (1) BALDO (acute kidney injury) Current Visit: Yes Status: Acute Plan to address problem: Likely in the setting of acure cardiorenal syndrome. No signs of renal recovery at this time and patient remains on dialysis, on TTS schedule He has had permcath placed and awaiting outpatient dialysis to be set up. Femoral vascath removed. Next HD session today. (2) Acute exacerbation of CHF (congestive heart failure) Current Visit: Yes Status: Acute Qualifiers: Heart failure type: combined systolic and diastolic Qualified Code(s): I50.43 - Acute on chronic combined systolic (congestive) and diastolic ( congestive) heart failure Plan to address problem: Volume status improved with dialysis. (3) Acidosis, metabolic Current Visit: Yes Status: Acute Plan to address problem: Improved with dialysis. Will continue to monitor. (4) Hyperkalemia Current Visit: Yes Status: Acute Plan to address problem: Improved with clearance provided with dialysis. He is NPO at present. He should be on a low K renal diet when not NPO. Will continue to monitor. Morning K noted to be 3.1. Will change his potassium bath to 3K on future HD sessions. (5) Respiratory failure Current Visit: Yes Status: Acute Qualifiers: Chronicity: acute Respiratory failure complication: hypoxia Qualified Code(s): J96.01 - Acute respiratory failure with hypoxia Plan to address problem: Tolerating well with adequate O2 sats on O2 via NC. Further management per respiratory team. (6) Severe anemia Current Visit: Yes Status: Chronic Plan to address problem: improved with transfusions. Will closely monitor. Per primary notes, possible plan for EGD/colonoscopy when stable and able to tolerate PO bowel prep. Will follow up. Subjective Date of service: 12/28/17 Principal diagnosis: Anemia Interval history: No acute issues overnight. SBFT did show contrast passing all the way through the colon. Plan to start on soft diet per GI notes. Patient is due for HD today. Objective - Vital Signs Vital signs: Vital Signs - 12hr 12/27/17 12/27/17 12/27/17 19:45 19:58 20:15 Temperature 98.0 F Pulse Rate 88 Pulse Rate [ 85 88 Anterior Bilateral Throughout] Pulse Rate [ From Monitor] Respiratory 20 Rate Respiratory 16 18 Rate [Anterior Bilateral Throughout] Blood Pressure 180/92 O2 Sat by Pulse 100 100 Oximetry 12/27/17 12/27/17 12/28/17 21:18 22:00 00:17 Temperature Pulse Rate 88 89 Pulse Rate [ Anterior Bilateral Throughout] Pulse Rate [ 88 From Monitor] Respiratory 20 Rate Respiratory Rate [Anterior Bilateral Throughout] Blood Pressure 180/92 O2 Sat by Pulse 100 Oximetry 12/28/17 12/28/17 02:01 03:31 Temperature 99.2 F Pulse Rate 99 H 99 H Pulse Rate [ Anterior Bilateral Throughout] Pulse Rate [ From Monitor] Respiratory 20 Rate Respiratory Rate [Anterior Bilateral Throughout] Blood Pressure 165/87 165/87 O2 Sat by Pulse 93 Oximetry - General Appearance General appearance: well-developed, well-nourished, appears stated age EENT: ATNC, PERRL Neck: no JVD, no thyromegaly Respiratory: Present: Clear to Ascultation Cardiology: regular, S1S2 Gastrointestinal: normal, normoactive bowel sounds Integumentary: no rash, warm and dry Neurologic: no focal deficit Musculoskeletal: other (-edema) Psychiatric: cooperative - Lab 12/28/17 02:42 12/28/17 02:42 Most recent lab results Calcium 8.2 mg/dL (8.4-10.2) L 12/28/17 02:42 Phosphorus 7.50 mg/dL (2.5-4.5) H 12/28/17 02:42 Urine Creatinine 81.7 mg/dL (0.1-20.0) H 12/16/17 12:05 Urine Sodium 62 mmol/L 12/16/17 12:05 Urine Total Protein 493 mg/dL (5-11.8) H 12/16/17 12:05 - Allied health notes Allied health notes reviewed: nursing
--- NOTE | 2017-12-28 07:39 | Progress Note ---
Assessment and Plan Assessment and plan: A/P Leukocytosis/Sepsis add oral Flagyl Repeat cbc in am. continue Antifungal Diarrhea, probably cause of leukocytosis for colonoscopy tomorrow GI on board. Acute Right LE DVT -cont on heparin drip - transition to Eliquis tomorrow. Sinus Tachy: multifactorial Add Coreg monitor HR. Acute kidney Injury/ATN - will need outpt HD clinic -on HD per renal -Renal team on board. HFrEF -2d ECHO EF 40-45% -Cardio following' - Strict I/Os - Fluid restriction s/p Severe Chronic blood loss anemia -s/p blood transfusion with 4 units of PRBC monitor H/H closely. GI team following HTN -Controlled on meds. Acute respiratory failure with hypoxia, resolved GI prophylaxis on Protonix. Further pt mgt will depend solely on the hospital course. Dispo: 6 min walk, NPO after MN, bleeding precautions, oral flagyl, More than 30 mins spent, am labs Disposition Plan: more than 30 mins spent History Interval history: Admitted with Acute Resp failure, BALDO/ATN on HD, Acute combined systolic HF, abdominal distention. Continues to have diarrheal stools and associated poor appetite. Bowel prep started today, for possible colonoscopy tomorrow. WBC trended up to 19k from 11k Hospitalist Physical - Constitutional Vitals: Temp Pulse Resp BP Pulse Ox 99.2 F 99 H 20 165/87 93 12/28/17 02:01 12/28/17 03:31 12/28/17 02:01 12/28/17 03:31 12/28/17 02:01 General appearance: Present: no acute distress, obese, other (ill appearing. able to complete sentences. ) - EENT Eyes: Present: PERRL, EOM intact, scleral icterus ENT: hearing intact, clear oral mucosa - Neck Neck: Present: supple, normal ROM - Respiratory Respiratory: negative: diminished, rales, rhonchi, wheezing - Cardiovascular Rhythm: regular (tachycardic) Heart Sounds: Present: S1 & S2 - Extremities Extremities: pulses intact, pulses symmetrical, normal temperature, normal color Peripheral Pulses: within normal limits - Abdominal General gastrointestinal: soft, non-tender, distended (protuberant), normal bowel sounds - Integumentary Integumentary: Present: clear, warm, dry - Psychiatric Psychiatric: appropriate mood/affect, intact judgment & insight, memory intact, cooperative - Neurologic Neurologic: CNII-XII intact, moves all extremities - Allied Health Allied health notes reviewed: nursing, social work, case management Results - Labs CBC & Chem 7: 12/28/17 02:42 12/28/17 02:42 Labs: Laboratory Last Values WBC 19.4 K/mm3 (4.5-11.0) H 12/28/17 02:42 RBC 3.52 M/mm3 (3.65-5.03) L 12/28/17 02:42 Hgb 9.2 gm/dl (11.8-15.2) L 12/28/17 02:42 Hct 28.5 % (35.5-45.6) L 12/28/17 02:42 MCV 81 fl (84-94) L 12/28/17 02:42 MCH 26 pg (28-32) L 12/28/17 02:42 MCHC 32 % (32-34) 12/28/17 02:42 RDW 19.7 % (13.2-15.2) H 12/28/17 02:42 Plt Count 310 K/mm3 (140-440) 12/28/17 02:42 Lymph % (Auto) 7.0 % (13.4-35.0) L 12/28/17 02:42 [place] % (Auto) 6.2 % (0.0-7.3) 12/28/17 02:42 Eos % (Auto) 0.6 % (0.0-4.3) 12/28/17 02:42 Baso % (Auto) 0.4 % (0.0-1.8) 12/28/17 02:42 Lymph # 1.4 K/mm3 (1.2-5.4) 12/28/17 02:42 [place] # 1.2 K/mm3 (0.0-0.8) H 12/28/17 02:42 Eos # 0.1 K/mm3 (0.0-0.4) 12/28/17 02:42 Baso # 0.1 K/mm3 (0.0-0.1) 12/28/17 02:42 Add Manual Diff Complete 12/21/17 04:45 Total Counted 100 12/21/17 04:45 Seg Neutrophils % 85.8 % (40.0-70.0) H 12/28/17 02:42 Seg Neuts % (Manual) 84.0 % (40.0-70.0) H 12/21/17 04:45 Band Neutrophils % 0 % 12/21/17 04:45 Lymphocytes % (Manual) 6.0 % (13.4-35.0) L 12/21/17 04:45 Reactive Lymphs % (Man) 0 % 12/21/17 04:45 Monocytes % (Manual) 9.0 % (0.0-7.3) H 12/21/17 04:45 Eosinophils % (Manual) 1.0 % (0.0-4.3) 12/21/17 04:45 Basophils % (Manual) 0 % (0.0-1.8) 12/21/17 04:45 Metamyelocytes % 0 % 12/21/17 04:45 Myelocytes % 0 % 12/21/17 04:45 Promyelocytes % 0 % 12/21/17 04:45 Blast Cells % 0 % 12/21/17 04:45 Nucleated RBC % Not Reportable 12/21/17 04:45 Seg Neutrophils # 16.6 K/mm3 (1.8-7.7) H 12/28/17 02:42 Seg Neutrophils # Man 11.5 K/mm3 (1.8-7.7) H 12/21/17 04:45 Band Neutrophils # 0.0 K/mm3 12/21/17 04:45 Lymphocytes # (Manual) 0.8 K/mm3 (1.2-5.4) L 12/21/17 04:45 Abs React Lymphs (Man) 0.0 K/mm3 12/21/17 04:45 Monocytes # (Manual) 1.2 K/mm3 (0.0-0.8) H 12/21/17 04:45 Eosinophils # (Manual) 0.1 K/mm3 (0.0-0.4) 12/21/17 04:45 Basophils # (Manual) 0.0 K/mm3 (0.0-0.1) 12/21/17 04:45 Metamyelocytes # 0.0 K/mm3 12/21/17 04:45 Myelocytes # 0.0 K/mm3 12/21/17 04:45 Promyelocytes # 0.0 K/mm3 12/21/17 04:45 Blast Cells # 0.0 K/mm3 12/21/17 04:45 WBC Morphology Not Reportable 12/21/17 04:45 Hypersegmented Neuts Not Reportable 12/21/17 04:45 Hyposegmented Neuts Not Reportable 12/21/17 04:45 Hypogranular Neuts Not Reportable 12/21/17 04:45 Smudge Cells Not Reportable 12/21/17 04:45 Toxic Granulation Not Reportable 12/21/17 04:45 Toxic Vacuolation Not Reportable 12/21/17 04:45 Dohle Bodies Not Reportable 12/21/17 04:45 Pelger-Huet Anomaly Not Reportable 12/21/17 04:45 Td Rods Not Reportable 12/21/17 04:45 Platelet Estimate Consistent w auto 12/21/17 04:45 Clumped Platelets Not Reportable 12/21/17 04:45 Plt Clumps, EDTA Not Reportable 12/21/17 04:45 Large Platelets Not Reportable 12/21/17 04:45 Giant Platelets Not Reportable 12/21/17 04:45 Platelet Satelliting Not Reportable 12/21/17 04:45 Plt Morphology Comment Not Reportable 12/21/17 04:45 RBC Morphology Not Reportable 12/21/17 04:45 Dimorphic RBCs Not Reportable 12/21/17 04:45 Polychromasia Not Reportable 12/21/17 04:45 Hypochromasia Not Reportable 12/21/17 04:45 Poikilocytosis Few 12/21/17 04:45 Anisocytosis 2+ 12/21/17 04:45 Microcytosis 1+ 12/21/17 04:45 Macrocytosis Not Reportable 12/21/17 04:45 Spherocytes Not Reportable 12/21/17 04:45 Pappenheimer Bodies Not Reportable 12/21/17 04:45 Sickle Cells Not Reportable 12/21/17 04:45 Target Cells Not Reportable 12/21/17 04:45 Tear Drop Cells Not Reportable 12/21/17 04:45 Ovalocytes Not Reportable 12/21/17 04:45 Helmet Cells Not Reportable 12/21/17 04:45 [place] Bodies Not Reportable 12/21/17 04:45 [place] Rings Not Reportable 12/21/17 04:45 [place]olph Cells Not Reportable 12/21/17 04:45 Bite Cells Not Reportable 12/21/17 04:45 Crenated Cell Not Reportable 12/21/17 04:45 Elliptocytes Not Reportable 12/21/17 04:45 Acanthocytes (Spur) Not Reportable 12/21/17 04:45 Rouleaux Not Reportable 12/21/17 04:45 Hemoglobin C Crystals Not Reportable 12/21/17 04:45 Schistocytes Not Reportable 12/21/17 04:45 Malaria parasites Not Reportable 12/21/17 04:45 [place] Bodies Not Reportable 12/21/17 04:45 Hem Pathologist Commnt No 12/21/17 04:45 PT 14.3 Sec. (12.2-14.9) 12/19/17 19:17 INR 1.05 (0.87-1.13) 12/19/17 19:17 APTT 27.9 Sec. (24.2-36.6) 12/19/17 19:17 D-Dimer 1108.83 ng/mlDDU (0-234) H 12/15/17 17:16 Heparin Anti-Xa Level 0.37 U.I./ml (0.3-0.7) 12/27/17 08:32 POC ABG pH 7.446 (7.35-7.45) 12/21/17 03:44 POC ABG pCO2 27.6 (35-45) L 12/21/17 03:44 POC ABG pO2 90 (80-105) 12/21/17 03:44 POC ABG HCO3 19.0 12/21/17 03:44 POC ABG Total CO2 20 12/21/17 03:44 POC ABG O2 Sat 97 12/21/17 03:44 POC ABG Base Excess -5 12/21/17 03:44 VBG pH 7.204 (7.320-7.420) L 12/15/17 18:01 FiO2 30 % 12/21/17 03:44 Sodium 139 mmol/L (137-145) 12/28/17 02:42 Potassium 3.5 mmol/L (3.6-5.0) L 12/28/17 02:42 Chloride 97.2 mmol/L (98-107) L 12/28/17 02:42 Carbon Dioxide 18 mmol/L (22-30) L 12/28/17 02:42 Anion Gap 27 mmol/L 12/28/17 02:42 BUN 79 mg/dL (9-20) H 12/28/17 02:42 Creatinine 8.6 mg/dL (0.8-1.5) H 12/28/17 02:42 Estimated GFR 6 ml/min 12/28/17 02:42 BUN/Creatinine Ratio 9 % 12/28/17 02:42 Glucose 124 mg/dL (75-100) H 12/28/17 02:42 POC Glucose 126 (70-105) H 12/27/17 16:26 Hemoglobin A1c < 4.2 % (4-6) 12/15/17 17:16 Lactic Acid 1.40 mmol/L (0.7-2.0) 12/15/17 17:16 Calcium 8.2 mg/dL (8.4-10.2) L 12/28/17 02:42 Phosphorus 7.50 mg/dL (2.5-4.5) H 12/28/17 02:42 Iron 37 ug/dL (49-181) L 12/16/17 00:24 TIBC 416 mcg/dL (250-450) 12/16/17 00:24 Ferritin 16.1 ng/mL (13.0-400.0) 12/16/17 00:24 Total Bilirubin 0.30 mg/dL (0.1-1.2) 12/28/17 02:42 AST 22 units/L (5-40) 12/28/17 02:42 ALT 17 units/L (7-56) 12/28/17 02:42 Alkaline Phosphatase 61 units/L (35-129) 12/28/17 02:42 Total Creatine Kinase 736 units/L (55-170) H 12/15/17 17:16 CK-MB (CK-2) 7.7 ng/mL (0.0-4.0) H 12/15/17 17:16 CK-MB (CK-2) Rel Index 1.0 (0-4) 12/15/17 17:16 Troponin T 0.067 ng/mL (0.00-0.029) H 12/15/17 17:16 NT-Pro-B Natriuret Pep 89269 pg/mL (0-900) H 12/15/17 17:16 Total Protein 6.7 g/dL (6.3-8.2) 12/28/17 02:42 Albumin 3.3 g/dL (3.9-5) L 12/28/17 02:42 Albumin/Globulin Ratio 1.0 % 12/28/17 02:42 Triglycerides 440 mg/dL (2-149) H 12/19/17 05:10 Cholesterol 163 mg/dL (50-199) 12/15/17 17:16 LDL Cholesterol Direct 102 mg/dL (50-130) 12/15/17 17:16 HDL Cholesterol 29 mg/dL (40-59) L 12/15/17 17:16 Cholesterol/HDL Ratio 5.62 % 12/15/17 17:16 Vitamin B12 221.6 pg/mL (211-911) 12/16/17 00:24 Folate 14.63 ng/mL (7.3-26.0) 12/16/17 00:24 Urine Color Yellow (Yellow) 12/16/17 12:05 Urine Turbidity Cloudy (Clear) 12/16/17 12:05 Urine pH 5.0 (5.0-7.0) 12/16/17 12:05 Ur Specific [place] 1.012 (1.003-1.030) 12/16/17 12:05 Urine Protein >500 mg/dL (Negative) 12/16/17 12:05 Urine Glucose (UA) 50 mg/dL (Negative) 12/16/17 12:05 Urine Ketones Neg mg/dL (Negative) 12/16/17 12:05 Urine Blood Mod (Negative) 12/16/17 12:05 Urine Nitrite Neg (Negative) 12/16/17 12:05 Urine Bilirubin Neg (Negative) 12/16/17 12:05 Urine Urobilinogen < 2.0 mg/dL (<2.0) 12/16/17 12:05 Ur Leukocyte Esterase Lg (Negative) 12/16/17 12:05 Urine WBC (Auto) > 182.0 /HPF (0.0-6.0) H 12/16/17 12:05 Urine RBC (Auto) 30.0 /HPF (0.0-6.0) 12/16/17 12:05 U Epithel Cells (Auto) 1.0 /HPF (0-13.0) 12/16/17 12:05 Urine Bacteria (Auto) 1+ /HPF (Negative) 12/16/17 12:05 Urine WBC Clumps 3+ /HPF 12/16/17 12:05 Urine Mucus 1+ /HPF 12/16/17 12:05 Urine Creatinine 81.7 mg/dL (0.1-20.0) H 12/16/17 12:05 Urine Sodium 62 mmol/L 12/16/17 12:05 Urine Total Protein 493 mg/dL (5-11.8) H 12/16/17 12:05 Urine Opiates Screen Presumptive negative 12/16/17 12:05 Urine Methadone Screen Presumptive negative 12/16/17 12:05 Ur Barbiturates Screen Presumptive negative 12/16/17 12:05 Ur Phencyclidine Scrn Presumptive negative 12/16/17 12:05 Ur Amphetamines Screen Presumptive negative 12/16/17 12:05 U Benzodiazepines Scrn Presumptive positive 12/16/17 12:05 Urine Cocaine Screen Presumptive negative 12/16/17 12:05 U Marijuana (THC) Screen Presumptive negative 12/16/17 12:05 Drugs of Abuse Note Disclamer 12/16/17 12:05 Hepatitis A IgM Ab Nonreactive (NonReactive) 12/16/17 04:47 Hep Bs Antigen Non-reactive (Negative) 12/16/17 04:47 Hep B Core IgM Ab Non-reactive (NonReactive) 12/16/17 04:47 Hepatitis C Antibody Non-reactive (NonReactive) 12/16/17 04:47 Blood Type A POSITIVE 12/15/17 17:45 Antibody Screen Negative 12/15/17 17:45 Crossmatch See Detail 12/15/17 17:45 - Imaging and Cardiology Chest x-ray: report reviewed, image reviewed
[2017-12-28] MEDS: DUONEB *Not for PRN Use IH SCH ×3 (08:08→20:29)
--- NOTE | 2017-12-28 09:14 | Progress Note ---
Assessment and Plan - Patient Problems (1) Ileus Current Visit: Yes Status: Acute Plan to address problem: Patient is stable. He has no abdominal surgical history. This is most likely reaction to his pneumonias. SBFT shows contrast passing all the way to the colon. Tolerated regular diet. He was concerned that every time he eats, he has to go to the bathroom. This is most likely the contrast coming through. Diet as tolerated. Will sign off. Please call if there are any questions. time=10min Subjective Date of service: 12/28/17 Patient Reports: Positive: tolerating a regular diet, bowel movement, other (no abdominal pain). Negative: nausea, vomiting Objective Vital Signs - 12hr 12/27/17 12/27/17 12/28/17 21:18 22:00 00:17 Temperature Pulse Rate 88 89 Pulse Rate [ Anterior Bilateral Throughout] Pulse Rate [ 88 From Monitor] Respiratory 20 Rate Respiratory Rate [Anterior Bilateral Throughout] Blood Pressure 180/92 O2 Sat by Pulse 100 Oximetry 12/28/17 12/28/17 12/28/17 02:01 03:31 07:40 Temperature 99.2 F 98.3 F Pulse Rate 99 H 99 H 98 H Pulse Rate [ Anterior Bilateral Throughout] Pulse Rate [ From Monitor] Respiratory 20 16 Rate Respiratory Rate [Anterior Bilateral Throughout] Blood Pressure 165/87 165/87 146/72 O2 Sat by Pulse 93 92 Oximetry 12/28/17 12/28/17 12/28/17 07:45 08:00 08:09 Temperature Pulse Rate 97 H Pulse Rate [ 103 H 92 H Anterior Bilateral Throughout] Pulse Rate [ From Monitor] Respiratory Rate Respiratory 18 103 H Rate [Anterior Bilateral Throughout] Blood Pressure O2 Sat by Pulse Oximetry 12/28/17 08:10 Temperature Pulse Rate Pulse Rate [ Anterior Bilateral Throughout] Pulse Rate [ From Monitor] Respiratory Rate Respiratory Rate [Anterior Bilateral Throughout] Blood Pressure O2 Sat by Pulse 92 Oximetry - General physical appearance no distress, no pain, other (looks much better) - Respiratory normal expansion, normal respiratory effort - Abdomen soft, not tender, not guarding, not rigid, other (I think he just has a protuberant abdomen.) - Integumentary no rash, no growths, no abnormal pigmentation - Labs 12/28/17 02:42 12/28/17 02:42 Diabetes panel 12/28/17 Range/Units 02:42 Sodium 139 (137-145) mmol/L Potassium 3.5 L (3.6-5.0) mmol/L Chloride 97.2 L (98-107) mmol/L Carbon Dioxide 18 L (22-30) mmol/L BUN 79 H (9-20) mg/dL Creatinine 8.6 H (0.8-1.5) mg/dL Glucose 124 H (75-100) mg/dL Calcium 8.2 L (8.4-10.2) mg/dL AST 22 (5-40) units/L ALT 17 (7-56) units/L Alkaline Phosphatase 61 (35-129) units/L Total Protein 6.7 (6.3-8.2) g/dL Albumin 3.3 L (3.9-5) g/dL Calcium panel 12/28/17 Range/Units 02:42 Calcium 8.2 L (8.4-10.2) mg/dL Phosphorus 7.50 H (2.5-4.5) mg/dL Albumin 3.3 L (3.9-5) g/dL Pituitary panel 12/28/17 Range/Units 02:42 Sodium 139 (137-145) mmol/L Potassium 3.5 L (3.6-5.0) mmol/L Chloride 97.2 L (98-107) mmol/L Carbon Dioxide 18 L (22-30) mmol/L BUN 79 H (9-20) mg/dL Creatinine 8.6 H (0.8-1.5) mg/dL Glucose 124 H (75-100) mg/dL Calcium 8.2 L (8.4-10.2) mg/dL Adrenal panel 12/28/17 Range/Units 02:42 Sodium 139 (137-145) mmol/L Potassium 3.5 L (3.6-5.0) mmol/L Chloride 97.2 L (98-107) mmol/L Carbon Dioxide 18 L (22-30) mmol/L BUN 79 H (9-20) mg/dL Creatinine 8.6 H (0.8-1.5) mg/dL Glucose 124 H (75-100) mg/dL Calcium 8.2 L (8.4-10.2) mg/dL Total Bilirubin 0.30 (0.1-1.2) mg/dL AST 22 (5-40) units/L ALT 17 (7-56) units/L Alkaline Phosphatase 61 (35-129) units/L Total Protein 6.7 (6.3-8.2) g/dL Albumin 3.3 L (3.9-5) g/dL
[2017-12-28] MEDS ORDERED: NACL 0.9% 100 ML IV PRN (09:20)
--- NOTE | 2017-12-28 10:00 | Progress Note ---
Assessment and Plan Acute respiratory failure now extubated Acute on chronic renal failure s/p urgent dialysis Anemia s/p transfusion of PRBCs Acute systolic heart failure EF 40-45% by echo Hypertension Acute right iliac DVT on IV heparin Ileus vs partial small bowel obstruction Conservative cardiac management. We will follow intermittently. Subjective Date of service: 12/28/17 Principal diagnosis: Anemia Interval history: Patient is receiving physical therapy. No cardiac reports overnight. Objective Vital Signs Temp Pulse Pulse Pulse Resp Resp BP 12/28/17 08:10 12/28/17 08:09 92 H 103 H 12/28/17 08:00 103 H 18 12/28/17 07:45 97 H 12/28/17 07:40 98.3 F 98 H 16 146/72 12/28/17 03:31 99 H 165/87 12/28/17 02:01 99.2 F 99 H 20 165/87 12/28/17 00:17 89 12/27/17 22:00 88 20 12/27/17 21:18 88 180/92 12/27/17 20:15 98.0 F 88 20 180/92 12/27/17 19:58 88 18 12/27/17 19:45 85 16 12/27/17 14:38 94 H 18 12/27/17 14:13 98.8 F 93 H 18 137/75 12/27/17 14:00 94 H 19 12/27/17 11:10 90 134/68 12/27/17 10:00 89 20 Pulse Ox 12/28/17 08:10 92 12/28/17 08:09 12/28/17 08:00 12/28/17 07:45 12/28/17 07:40 92 12/28/17 03:31 12/28/17 02:01 93 12/28/17 00:17 12/27/17 22:00 100 12/27/17 21:18 12/27/17 20:15 100 12/27/17 19:58 100 12/27/17 19:45 12/27/17 14:38 12/27/17 14:13 97 12/27/17 14:00 12/27/17 11:10 12/27/17 10:00 89 - Physical Examination General: No Apparent Distress HEENT: Positive: PERRL Neck: Positive: trachea midline Cardiac: Positive: Reg Rate and Rhythm Neuro: Positive: Grossly Intact Extremities: Absent: edema - Labs and Meds Cardiac Enzymes 12/28/17 Range/Units 02:42 AST 22 (5-40) units/L CBC 12/28/17 Range/Units 02:42 WBC 19.4 H (4.5-11.0) K/mm3 RBC 3.52 L (3.65-5.03) M/mm3 Hgb 9.2 L (11.8-15.2) gm/dl Hct 28.5 L (35.5-45.6) % Plt Count 310 (140-440) K/mm3 Lymph # 1.4 (1.2-5.4) K/mm3 [place] # 1.2 H (0.0-0.8) K/mm3 Eos # 0.1 (0.0-0.4) K/mm3 Baso # 0.1 (0.0-0.1) K/mm3 Comprehensive Metabolic Panel 12/28/17 Range/Units 02:42 Sodium 139 (137-145) mmol/L Potassium 3.5 L (3.6-5.0) mmol/L Chloride 97.2 L (98-107) mmol/L Carbon Dioxide 18 L (22-30) mmol/L BUN 79 H (9-20) mg/dL Creatinine 8.6 H (0.8-1.5) mg/dL Glucose 124 H (75-100) mg/dL Calcium 8.2 L (8.4-10.2) mg/dL AST 22 (5-40) units/L ALT 17 (7-56) units/L Alkaline Phosphatase 61 (35-129) units/L Total Protein 6.7 (6.3-8.2) g/dL Albumin 3.3 L (3.9-5) g/dL - Allied health notes Allied health notes reviewed: nursing
--- NOTE | 2017-12-28 13:22 | Gastroenterology Progress Note ---
Assessment and Plan 1.iron deficiency anemia -H/H stable -no active signs of bleeding -etiology unclear -will schedule for EGD/colonoscopy in am for further evaluation -clear liquids today then NPO after MN -hold heparin drip at 0300 -continue PPI and supportive care 2.abdominal distention -KUB shows ileus vs partial small bowel obstruction -SBFT shows contast passing all the way to the colon -surgery with no recommendations for surgical intervention -clinically, patient is now tolerating PO intake. Denies abd pain or N/V. Distention improving with BMs yesterday. -limit narcotics -encourage OOB -continue supportive care -will follow Subjective Date of service: 12/28/17 Principal diagnosis: Anemia Interval history: Patient w/o distress or acute events overnight. Reports abd distention is better with multiple BMs yesterday per nursing. Denies abd pain or N/V. Tolerating diet. Objective - Constitutional Vitals: Temp Pulse Resp BP Pulse Ox 98.3 F 109 H 18 144/82 92 12/28/17 10:30 12/28/17 12:45 12/28/17 10:30 12/28/17 12:45 12/28/17 10:00 General appearance: no acute distress - Respiratory Respiratory: bilateral: CTA - Cardiovascular Rhythm: other (tachycardia) - Gastrointestinal General gastrointestinal: Present: soft, non-tender, distended ((distention improving)), normal bowel sounds - Neurologic Neurological: alert and oriented x3 - Labs CBC & Chem 7: 12/28/17 02:42 12/28/17 02:42 Labs: Laboratory Results - last 24 hr 12/27/17 12/27/17 12/28/17 16:26 21:27 02:42 WBC 19.4 H RBC 3.52 L Hgb 9.2 L Hct 28.5 L MCV 81 L MCH 26 L MCHC 32 RDW 19.7 H Plt Count 310 Lymph % (Auto) 7.0 L Ellis % (Auto) 6.2 Eos % (Auto) 0.6 Baso % (Auto) 0.4 Lymph # 1.4 Ellis # 1.2 H Eos # 0.1 Baso # 0.1 Seg Neutrophils % 85.8 H Seg Neutrophils # 16.6 H Heparin Anti-Xa Level Sodium Potassium Chloride Carbon Dioxide Anion Gap BUN Creatinine Estimated GFR BUN/Creatinine Ratio Glucose POC Glucose 126 H 107 H Calcium Phosphorus Total Bilirubin AST ALT Alkaline Phosphatase Total Protein Albumin Albumin/Globulin Ratio 12/28/17 12/28/17 12/28/17 02:42 07:40 08:10 WBC RBC Hgb Hct MCV MCH MCHC RDW Plt Count Lymph % (Auto) Ellis % (Auto) Eos % (Auto) Baso % (Auto) Lymph # Ellis # Eos # Baso # Seg Neutrophils % Seg Neutrophils # Heparin Anti-Xa Level 0.11 L Sodium 139 Potassium 3.5 L Chloride 97.2 L Carbon Dioxide 18 L Anion Gap 27 BUN 79 H Creatinine 8.6 H Estimated GFR 6 BUN/Creatinine Ratio 9 Glucose 124 H POC Glucose 124 H Calcium 8.2 L Phosphorus 7.50 H Total Bilirubin 0.30 AST 22 ALT 17 Alkaline Phosphatase 61 Total Protein 6.7 Albumin 3.3 L Albumin/Globulin Ratio 1.0
[2017-12-28] MEDS ORDERED: NACL 0.9 (PRIMING MACHINE ONLY DIALYSIS) MC ONE (13:23)
--- NOTE | 2017-12-28 14:15 | Progress Note ---
Assessment and Plan 67 y/o male with acute respiratory failure secondary to pulmonary edema, likely from acute renal failure and found to be profoundly anemic on admission. 1. Pulm status stable. Off oxygen, will sign off. Suggest checking 6 minute walk test prior to discharge. Subjective Date of service: 12/28/17 Principal diagnosis: Anemia Interval history: Weaned to room air with good sats. Objective Vital Signs - 12hr 12/28/17 12/28/17 12/28/17 03:31 07:40 07:45 Temperature 98.3 F Pulse Rate 99 H 98 H 97 H Pulse Rate [ Anterior Bilateral Throughout] Pulse Rate [ From Monitor] Respiratory 16 Rate Respiratory Rate [Anterior Bilateral Throughout] Blood Pressure 165/87 146/72 O2 Sat by Pulse 92 Oximetry 12/28/17 12/28/17 12/28/17 08:00 08:09 08:10 Temperature Pulse Rate Pulse Rate [ 103 H 92 H Anterior Bilateral Throughout] Pulse Rate [ From Monitor] Respiratory Rate Respiratory 18 103 H Rate [Anterior Bilateral Throughout] Blood Pressure O2 Sat by Pulse 92 Oximetry 12/28/17 12/28/17 12/28/17 10:00 10:30 10:45 Temperature 98.3 F Pulse Rate 91 H 97 H Pulse Rate [ Anterior Bilateral Throughout] Pulse Rate [ 92 H From Monitor] Respiratory 20 18 Rate Respiratory Rate [Anterior Bilateral Throughout] Blood Pressure 158/93 138/90 O2 Sat by Pulse 92 Oximetry 12/28/17 12/28/17 12/28/17 11:00 11:15 11:30 Temperature Pulse Rate 105 H 114 H 111 H Pulse Rate [ Anterior Bilateral Throughout] Pulse Rate [ From Monitor] Respiratory Rate Respiratory Rate [Anterior Bilateral Throughout] Blood Pressure 140/87 123/87 137/93 O2 Sat by Pulse Oximetry 12/28/17 12/28/17 12/28/17 11:45 12:00 12:15 Temperature Pulse Rate 109 H 116 H 114 H Pulse Rate [ Anterior Bilateral Throughout] Pulse Rate [ From Monitor] Respiratory Rate Respiratory Rate [Anterior Bilateral Throughout] Blood Pressure 142/95 141/91 140/90 O2 Sat by Pulse Oximetry 12/28/17 12/28/17 12/28/17 12:30 12:45 13:00 Temperature Pulse Rate 108 H 109 H 82 Pulse Rate [ Anterior Bilateral Throughout] Pulse Rate [ From Monitor] Respiratory Rate Respiratory Rate [Anterior Bilateral Throughout] Blood Pressure 142/94 144/82 188/86 O2 Sat by Pulse Oximetry 12/28/17 12/28/17 13:15 13:30 Temperature Pulse Rate 80 78 Pulse Rate [ Anterior Bilateral Throughout] Pulse Rate [ From Monitor] Respiratory Rate Respiratory Rate [Anterior Bilateral Throughout] Blood Pressure 190/90 202/93 O2 Sat by Pulse Oximetry Constitutional: no acute distress, alert ENT: other (NG tube in place) Neck: supple Effort: normal Ascultation: Bilateral: clear, diminished breath sounds, wheezes (faint, otherwise CTA), rales (right greater than left, mild), rhonchi (rare) Percussion: Bilateral: not dull Cardiovascular: regular rate and rhythm Gastrointestinal: normoactive bowel sounds, soft, non-tender, other (no rebound tenderness, bowel sounds present,still looks somewhat distended) Integumentary: normal Extremities: no edema, pink and warm, pulses normal Neurologic: normal mental status, non-focal exam, pupils equal and round CBC and BMP: 12/28/17 02:42 12/28/17 02:42 ABG, PT/INR, D-dimer: ABG POC ABG pH 7.446 (7.35-7.45) 12/21/17 03:44 POC ABG pCO2 27.6 (35-45) L 12/21/17 03:44 POC ABG pO2 90 (80-105) 12/21/17 03:44 POC ABG HCO3 19.0 12/21/17 03:44 POC ABG Total CO2 20 12/21/17 03:44 POC ABG O2 Sat 97 12/21/17 03:44 PT/INR, D-dimer PT 14.3 Sec. (12.2-14.9) 12/19/17 19:17 INR 1.05 (0.87-1.13) 12/19/17 19:17 D-Dimer 1108.83 ng/mlDDU (0-234) H 12/15/17 17:16 Abnormal lab findings: Abnormal Labs 12/15/17 12/15/17 12/15/17 17:16 17:16 17:16 WBC 16.7 H RBC 2.12 L Hgb 4.9 L* Hct 16.0 L* MCV 76 L MCH 23 L MCHC 30 L RDW 17.3 H Plt Count 445 H Lymph % (Auto) 11.3 L Coles % (Auto) 7.4 H Coles # 1.2 H Seg Neutrophils % 80.2 H Seg Neuts % (Manual) Lymphocytes % (Manual) Monocytes % (Manual) Seg Neutrophils # 13.4 H Seg Neutrophils # Man Lymphocytes # (Manual) Monocytes # (Manual) D-Dimer 1108.83 H Heparin Anti-Xa Level POC ABG pH POC ABG pCO2 POC ABG pO2 VBG pH Sodium Potassium 5.1 H Chloride Carbon Dioxide 18 L BUN 76 H Creatinine 7.1 H Glucose 148 H POC Glucose Calcium 8.2 L Phosphorus Iron Total Creatine Kinase 736 H CK-MB (CK-2) 7.7 H Troponin T 0.067 H NT-Pro-B Natriuret Pep Albumin Triglycerides 206 H HDL Cholesterol 29 L Urine WBC (Auto) Urine Creatinine Urine Total Protein Crossmatch 12/15/17 12/15/17 12/15/17 17:16 17:45 18:01 WBC RBC Hgb Hct MCV MCH MCHC RDW Plt Count Lymph % (Auto) Coles % (Auto) Coles # Seg Neutrophils % Seg Neuts % (Manual) Lymphocytes % (Manual) Monocytes % (Manual) Seg Neutrophils # Seg Neutrophils # Man Lymphocytes # (Manual) Monocytes # (Manual) D-Dimer Heparin Anti-Xa Level POC ABG pH POC ABG pCO2 POC ABG pO2 VBG pH 7.204 L Sodium Potassium Chloride Carbon Dioxide BUN Creatinine Glucose POC Glucose Calcium Phosphorus Iron Total Creatine Kinase CK-MB (CK-2) Troponin T NT-Pro-B Natriuret Pep 75396 H Albumin Triglycerides HDL Cholesterol Urine WBC (Auto) Urine Creatinine Urine Total Protein Crossmatch See Detail 12/15/17 12/15/17 12/16/17 18:32 23:26 00:24 WBC RBC Hgb Hct MCV MCH MCHC RDW Plt Count Lymph % (Auto) Coles % (Auto) Coles # Seg Neutrophils % Seg Neuts % (Manual) Lymphocytes % (Manual) Monocytes % (Manual) Seg Neutrophils # Seg Neutrophils # Man Lymphocytes # (Manual) Monocytes # (Manual) D-Dimer Heparin Anti-Xa Level POC ABG pH 7.324 L 7.142 L POC ABG pCO2 33.6 L 50.4 H POC ABG pO2 110 H 107 H VBG pH Sodium Potassium Chloride Carbon Dioxide BUN Creatinine Glucose POC Glucose Calcium Phosphorus Iron 37 L Total Creatine Kinase CK-MB (CK-2) Troponin T NT-Pro-B Natriuret Pep Albumin Triglycerides HDL Cholesterol Urine WBC (Auto) Urine Creatinine Urine Total Protein Crossmatch 12/16/17 12/16/17 12/16/17 03:41 03:43 03:43 WBC 16.3 H RBC 3.01 L Hgb 7.5 L Hct 24.3 L D MCV 81 L MCH 25 L MCHC 31 L RDW 17.7 H Plt Count Lymph % (Auto) 7.9 L Coles % (Auto) 7.8 H Coles # 1.3 H Seg Neutrophils % 83.7 H Seg Neuts % (Manual) Lymphocytes % (Manual) Monocytes % (Manual) Seg Neutrophils # 13.7 H Seg Neutrophils # Man Lymphocytes # (Manual) Monocytes # (Manual) D-Dimer Heparin Anti-Xa Level POC ABG pH 7.211 L POC ABG pCO2 45.3 H POC ABG pO2 123 H VBG pH Sodium Potassium 5.3 H Chloride Carbon Dioxide 16 L BUN 76 H Creatinine 7.5 H Glucose 121 H POC Glucose Calcium 7.9 L Phosphorus Iron Total Creatine Kinase CK-MB (CK-2) Troponin T NT-Pro-B Natriuret Pep Albumin 3.6 L Triglycerides HDL Cholesterol Urine WBC (Auto) Urine Creatinine Urine Total Protein Crossmatch 12/16/17 12/16/17 12/16/17 10:11 11:10 11:41 WBC 17.6 H RBC 3.16 L Hgb 7.9 L Hct 24.5 L MCV 78 L MCH 25 L MCHC RDW 17.7 H Plt Count Lymph % (Auto) 8.6 L Coles % (Auto) Coles # 1.3 H Seg Neutrophils % 83.7 H Seg Neuts % (Manual) Lymphocytes % (Manual) Monocytes % (Manual) Seg Neutrophils # 14.7 H Seg Neutrophils # Man Lymphocytes # (Manual) Monocytes # (Manual) D-Dimer Heparin Anti-Xa Level POC ABG pH 7.491 H POC ABG pCO2 POC ABG pO2 56 L VBG pH Sodium Potassium Chloride Carbon Dioxide BUN Creatinine Glucose POC Glucose 127 H Calcium Phosphorus Iron Total Creatine Kinase CK-MB (CK-2) Troponin T NT-Pro-B Natriuret Pep Albumin Triglycerides HDL Cholesterol Urine WBC (Auto) Urine Creatinine Urine Total Protein Crossmatch 12/16/17 12/16/17 12/16/17 12:05 12:05 12:15 WBC RBC Hgb 7.4 L Hct 22.8 L MCV MCH MCHC RDW Plt Count Lymph % (Auto) Coles % (Auto) Coles # Seg Neutrophils % Seg Neuts % (Manual) Lymphocytes % (Manual) Monocytes % (Manual) Seg Neutrophils # Seg Neutrophils # Man Lymphocytes # (Manual) Monocytes # (Manual) D-Dimer Heparin Anti-Xa Level POC ABG pH POC ABG pCO2 POC ABG pO2 VBG pH Sodium Potassium Chloride Carbon Dioxide BUN Creatinine Glucose POC Glucose Calcium Phosphorus Iron Total Creatine Kinase CK-MB (CK-2) Troponin T NT-Pro-B Natriuret Pep Albumin Triglycerides HDL Cholesterol Urine WBC (Auto) > 182.0 H Urine Creatinine 81.7 H Urine Total Protein 493 H Crossmatch 12/16/17 12/16/17 12/17/17 17:52 18:08 00:11 WBC RBC Hgb 6.6 L 6.9 L Hct 20.6 L 20.8 L MCV MCH MCHC RDW Plt Count Lymph % (Auto) Coles % (Auto) Coles # Seg Neutrophils % Seg Neuts % (Manual) Lymphocytes % (Manual) Monocytes % (Manual) Seg Neutrophils # Seg Neutrophils # Man Lymphocytes # (Manual) Monocytes # (Manual) D-Dimer Heparin Anti-Xa Level POC ABG pH POC ABG pCO2 POC ABG pO2 VBG pH Sodium Potassium Chloride Carbon Dioxide BUN Creatinine Glucose POC Glucose 127 H Calcium Phosphorus Iron Total Creatine Kinase CK-MB (CK-2) Troponin T NT-Pro-B Natriuret Pep Albumin Triglycerides HDL Cholesterol Urine WBC (Auto) Urine Creatinine Urine Total Protein Crossmatch 12/17/17 12/17/17 12/17/17 00:24 04:03 07:54 WBC 13.1 H RBC 3.06 L Hgb 8.1 L Hct 24.3 L MCV 79 L MCH 26 L MCHC RDW 18.6 H Plt Count Lymph % (Auto) 11.9 L Coles % (Auto) 8.6 H Coles # 1.1 H Seg Neutrophils % 77.9 H Seg Neuts % (Manual) Lymphocytes % (Manual) Monocytes % (Manual) Seg Neutrophils # 10.2 H Seg Neutrophils # Man Lymphocytes # (Manual) Monocytes # (Manual) D-Dimer Heparin Anti-Xa Level POC ABG pH 7.453 H POC ABG pCO2 33.6 L POC ABG pO2 VBG pH Sodium Potassium Chloride Carbon Dioxide BUN Creatinine Glucose POC Glucose 126 H Calcium Phosphorus Iron Total Creatine Kinase CK-MB (CK-2) Troponin T NT-Pro-B Natriuret Pep Albumin Triglycerides HDL Cholesterol Urine WBC (Auto) Urine Creatinine Urine Total Protein Crossmatch 12/17/17 12/17/17 12/17/17 07:54 09:22 11:55 WBC RBC Hgb Hct MCV MCH MCHC RDW Plt Count Lymph % (Auto) Coles % (Auto) Coles # Seg Neutrophils % Seg Neuts % (Manual) Lymphocytes % (Manual) Monocytes % (Manual) Seg Neutrophils # Seg Neutrophils # Man Lymphocytes # (Manual) Monocytes # (Manual) D-Dimer Heparin Anti-Xa Level POC ABG pH POC ABG pCO2 POC ABG pO2 VBG pH Sodium Potassium 3.4 L D Chloride Carbon Dioxide 21 L BUN 65 H Creatinine 6.4 H Glucose 133 H POC Glucose 112 H 119 H Calcium Phosphorus Iron Total Creatine Kinase CK-MB (CK-2) Troponin T NT-Pro-B Natriuret Pep Albumin Triglycerides HDL Cholesterol Urine WBC (Auto) Urine Creatinine Urine Total Protein Crossmatch 12/17/17 12/17/17 12/17/17 13:07 17:15 17:29 WBC RBC Hgb 9.3 L 9.8 L Hct 27.9 L 29.8 L MCV MCH MCHC RDW Plt Count Lymph % (Auto) Coles % (Auto) Coles # Seg Neutrophils % Seg Neuts % (Manual) Lymphocytes % (Manual) Monocytes % (Manual) Seg Neutrophils # Seg Neutrophils # Man Lymphocytes # (Manual) Monocytes # (Manual) D-Dimer Heparin Anti-Xa Level POC ABG pH POC ABG pCO2 POC ABG pO2 VBG pH Sodium Potassium Chloride Carbon Dioxide BUN Creatinine Glucose POC Glucose 158 H Calcium Phosphorus Iron Total Creatine Kinase CK-MB (CK-2) Troponin T NT-Pro-B Natriuret Pep Albumin Triglycerides HDL Cholesterol Urine WBC (Auto) Urine Creatinine Urine Total Protein Crossmatch 12/18/17 12/18/17 12/18/17 00:03 00:28 04:44 WBC RBC Hgb 9.9 L Hct 29.9 L MCV MCH MCHC RDW Plt Count Lymph % (Auto) Coles % (Auto) Coles # Seg Neutrophils % Seg Neuts % (Manual) Lymphocytes % (Manual) Monocytes % (Manual) Seg Neutrophils # Seg Neutrophils # Man Lymphocytes # (Manual) Monocytes # (Manual) D-Dimer Heparin Anti-Xa Level POC ABG pH 7.497 H POC ABG pCO2 27.0 L POC ABG pO2 136 H VBG pH Sodium Potassium Chloride Carbon Dioxide BUN Creatinine Glucose POC Glucose 109 H Calcium Phosphorus Iron Total Creatine Kinase CK-MB (CK-2) Troponin T NT-Pro-B Natriuret Pep Albumin Triglycerides HDL Cholesterol Urine WBC (Auto) Urine Creatinine Urine Total Protein Crossmatch 12/18/17 12/18/17 12/18/17 05:12 05:12 11:55 WBC 14.2 H RBC Hgb 9.8 L Hct 29.7 L MCV 81 L MCH 27 L MCHC RDW 18.8 H Plt Count Lymph % (Auto) 12.3 L Coles % (Auto) 9.4 H Coles # 1.3 H Seg Neutrophils % 75.5 H Seg Neuts % (Manual) Lymphocytes % (Manual) Monocytes % (Manual) Seg Neutrophils # 10.7 H Seg Neutrophils # Man Lymphocytes # (Manual) Monocytes # (Manual) D-Dimer Heparin Anti-Xa Level POC ABG pH POC ABG pCO2 POC ABG pO2 VBG pH Sodium Potassium Chloride Carbon Dioxide 19 L BUN 55 H Creatinine 6.0 H Glucose 112 H POC Glucose 126 H Calcium Phosphorus Iron Total Creatine Kinase CK-MB (CK-2) Troponin T NT-Pro-B Natriuret Pep Albumin Triglycerides HDL Cholesterol Urine WBC (Auto) Urine Creatinine Urine Total Protein Crossmatch 12/18/17 12/19/17 12/19/17 21:34 05:01 05:10 WBC 11.9 H RBC Hgb 9.5 L Hct 30.1 L MCV 82 L MCH 26 L MCHC RDW 19.0 H Plt Count Lymph % (Auto) Coles % (Auto) Coles # Seg Neutrophils % Seg Neuts % (Manual) Lymphocytes % (Manual) Monocytes % (Manual) Seg Neutrophils # Seg Neutrophils # Man Lymphocytes # (Manual) Monocytes # (Manual) D-Dimer Heparin Anti-Xa Level POC ABG pH POC ABG pCO2 29.8 L POC ABG pO2 116 H VBG pH Sodium Potassium Chloride Carbon Dioxide BUN Creatinine Glucose POC Glucose 120 H Calcium Phosphorus Iron Total Creatine Kinase CK-MB (CK-2) Troponin T NT-Pro-B Natriuret Pep Albumin Triglycerides HDL Cholesterol Urine WBC (Auto) Urine Creatinine Urine Total Protein Crossmatch 12/19/17 12/19/17 12/19/17 05:10 05:10 07:15 WBC RBC Hgb Hct MCV MCH MCHC RDW Plt Count Lymph % (Auto) Coles % (Auto) Coles # Seg Neutrophils % Seg Neuts % (Manual) Lymphocytes % (Manual) Monocytes % (Manual) Seg Neutrophils # Seg Neutrophils # Man Lymphocytes # (Manual) Monocytes # (Manual) D-Dimer Heparin Anti-Xa Level POC ABG pH POC ABG pCO2 POC ABG pO2 VBG pH Sodium Potassium Chloride 95.9 L Carbon Dioxide 18 L BUN 90 H Creatinine 9.2 H D Glucose 140 H POC Glucose 130 H Calcium Phosphorus 11.90 H Iron Total Creatine Kinase CK-MB (CK-2) Troponin T NT-Pro-B Natriuret Pep Albumin Triglycerides 440 H HDL Cholesterol Urine WBC (Auto) Urine Creatinine Urine Total Protein Crossmatch 12/19/17 12/19/17 12/19/17 11:52 15:36 19:17 WBC RBC Hgb 10.3 L Hct 31.1 L MCV MCH MCHC RDW Plt Count Lymph % (Auto) Coles % (Auto) Coles # Seg Neutrophils % Seg Neuts % (Manual) Lymphocytes % (Manual) Monocytes % (Manual) Seg Neutrophils # Seg Neutrophils # Man Lymphocytes # (Manual) Monocytes # (Manual) D-Dimer Heparin Anti-Xa Level POC ABG pH POC ABG pCO2 POC ABG pO2 VBG pH Sodium Potassium Chloride Carbon Dioxide BUN Creatinine Glucose POC Glucose 148 H 127 H Calcium Phosphorus Iron Total Creatine Kinase CK-MB (CK-2) Troponin T NT-Pro-B Natriuret Pep Albumin Triglycerides HDL Cholesterol Urine WBC (Auto) Urine Creatinine Urine Total Protein Crossmatch 12/19/17 12/19/17 12/20/17 19:17 23:01 02:07 WBC RBC Hgb Hct MCV MCH MCHC RDW Plt Count Lymph % (Auto) Coles % (Auto) Coles # Seg Neutrophils % Seg Neuts % (Manual) Lymphocytes % (Manual) Monocytes % (Manual) Seg Neutrophils # Seg Neutrophils # Man Lymphocytes # (Manual) Monocytes # (Manual) D-Dimer Heparin Anti-Xa Level < 0.10 L 0.77 H POC ABG pH POC ABG pCO2 POC ABG pO2 VBG pH Sodium Potassium Chloride Carbon Dioxide BUN Creatinine Glucose POC Glucose 151 H Calcium Phosphorus Iron Total Creatine Kinase CK-MB (CK-2) Troponin T NT-Pro-B Natriuret Pep Albumin Triglycerides HDL Cholesterol Urine WBC (Auto) Urine Creatinine Urine Total Protein Crossmatch 12/20/17 12/20/17 12/20/17 02:09 04:03 07:52 WBC RBC Hgb Hct MCV MCH MCHC RDW Plt Count Lymph % (Auto) Coles % (Auto) Coles # Seg Neutrophils % Seg Neuts % (Manual) Lymphocytes % (Manual) Monocytes % (Manual) Seg Neutrophils # Seg Neutrophils # Man Lymphocytes # (Manual) Monocytes # (Manual) D-Dimer Heparin Anti-Xa Level POC ABG pH 7.308 L POC ABG pCO2 31.1 L POC ABG pO2 133 H VBG pH Sodium 147 H Potassium Chloride 96.9 L Carbon Dioxide 14 L BUN 116 H Creatinine 11.6 H Glucose 109 H POC Glucose 131 H Calcium Phosphorus Iron Total Creatine Kinase CK-MB (CK-2) Troponin T NT-Pro-B Natriuret Pep Albumin Triglycerides HDL Cholesterol Urine WBC (Auto) Urine Creatinine Urine Total Protein Crossmatch 12/20/17 12/20/17 12/20/17 11:11 11:43 16:08 WBC RBC Hgb Hct MCV MCH MCHC RDW Plt Count Lymph % (Auto) Coles % (Auto) Coles # Seg Neutrophils % Seg Neuts % (Manual) Lymphocytes % (Manual) Monocytes % (Manual) Seg Neutrophils # Seg Neutrophils # Man Lymphocytes # (Manual) Monocytes # (Manual) D-Dimer Heparin Anti-Xa Level POC ABG pH 7.266 L POC ABG pCO2 32.6 L POC ABG pO2 VBG pH Sodium Potassium Chloride Carbon Dioxide BUN Creatinine Glucose POC Glucose 143 H 159 H Calcium Phosphorus Iron Total Creatine Kinase CK-MB (CK-2) Troponin T NT-Pro-B Natriuret Pep Albumin Triglycerides HDL Cholesterol Urine WBC (Auto) Urine Creatinine Urine Total Protein Crossmatch 12/21/17 12/21/17 12/21/17 03:44 04:45 04:45 WBC 13.7 H RBC Hgb 10.8 L Hct 33.8 L MCV 81 L MCH 26 L MCHC RDW 19.4 H Plt Count Lymph % (Auto) Coles % (Auto) Coles # Seg Neutrophils % Seg Neuts % (Manual) 84.0 H Lymphocytes % (Manual) 6.0 L Monocytes % (Manual) 9.0 H Seg Neutrophils # Seg Neutrophils # Man 11.5 H Lymphocytes # (Manual) 0.8 L Monocytes # (Manual) 1.2 H D-Dimer Heparin Anti-Xa Level POC ABG pH POC ABG pCO2 27.6 L POC ABG pO2 VBG pH Sodium Potassium Chloride 93.9 L Carbon Dioxide 19 L BUN 82 H Creatinine 8.2 H Glucose 113 H POC Glucose Calcium Phosphorus Iron Total Creatine Kinase CK-MB (CK-2) Troponin T NT-Pro-B Natriuret Pep Albumin Triglycerides HDL Cholesterol Urine WBC (Auto) Urine Creatinine Urine Total Protein Crossmatch 12/21/17 12/21/17 12/21/17 08:08 09:35 12:11 WBC RBC Hgb Hct MCV MCH MCHC RDW Plt Count Lymph % (Auto) Coles % (Auto) Coles # Seg Neutrophils % Seg Neuts % (Manual) Lymphocytes % (Manual) Monocytes % (Manual) Seg Neutrophils # Seg Neutrophils # Man Lymphocytes # (Manual) Monocytes # (Manual) D-Dimer Heparin Anti-Xa Level 0.80 H POC ABG pH POC ABG pCO2 POC ABG pO2 VBG pH Sodium Potassium Chloride Carbon Dioxide BUN Creatinine Glucose POC Glucose 123 H 139 H Calcium Phosphorus Iron Total Creatine Kinase CK-MB (CK-2) Troponin T NT-Pro-B Natriuret Pep Albumin Triglycerides HDL Cholesterol Urine WBC (Auto) Urine Creatinine Urine Total Protein Crossmatch 12/21/17 12/21/17 12/21/17 15:51 17:12 23:18 WBC RBC Hgb Hct MCV MCH MCHC RDW Plt Count Lymph % (Auto) Coles % (Auto) Coles # Seg Neutrophils % Seg Neuts % (Manual) Lymphocytes % (Manual) Monocytes % (Manual) Seg Neutrophils # Seg Neutrophils # Man Lymphocytes # (Manual) Monocytes # (Manual) D-Dimer Heparin Anti-Xa Level 1.17 H POC ABG pH POC ABG pCO2 POC ABG pO2 VBG pH Sodium Potassium Chloride Carbon Dioxide BUN Creatinine Glucose POC Glucose 169 H 115 H Calcium Phosphorus Iron Total Creatine Kinase CK-MB (CK-2) Troponin T NT-Pro-B Natriuret Pep Albumin Triglycerides HDL Cholesterol Urine WBC (Auto) Urine Creatinine Urine Total Protein Crossmatch 12/22/17 12/23/17 12/23/17 18:55 00:05 04:35 WBC 12.7 H RBC 3.64 L Hgb 9.8 L Hct 30.0 L MCV 83 L MCH 27 L MCHC RDW 18.9 H Plt Count Lymph % (Auto) 10.3 L Coles % (Auto) 10.3 H Coles # 1.3 H Seg Neutrophils % 77.5 H Seg Neuts % (Manual) Lymphocytes % (Manual) Monocytes % (Manual) Seg Neutrophils # 9.9 H Seg Neutrophils # Man Lymphocytes # (Manual) Monocytes # (Manual) D-Dimer Heparin Anti-Xa Level POC ABG pH POC ABG pCO2 POC ABG pO2 VBG pH Sodium Potassium Chloride Carbon Dioxide BUN Creatinine Glucose POC Glucose 120 H 108 H Calcium Phosphorus Iron Total Creatine Kinase CK-MB (CK-2) Troponin T NT-Pro-B Natriuret Pep Albumin Triglycerides HDL Cholesterol Urine WBC (Auto) Urine Creatinine Urine Total Protein Crossmatch 12/23/17 12/23/17 12/23/17 04:35 04:35 06:27 WBC RBC Hgb Hct MCV MCH MCHC RDW Plt Count Lymph % (Auto) Coles % (Auto) Coles # Seg Neutrophils % Seg Neuts % (Manual) Lymphocytes % (Manual) Monocytes % (Manual) Seg Neutrophils # Seg Neutrophils # Man Lymphocytes # (Manual) Monocytes # (Manual) D-Dimer Heparin Anti-Xa Level 0.24 L POC ABG pH POC ABG pCO2 POC ABG pO2 VBG pH Sodium Potassium Chloride 88.9 L Carbon Dioxide 16 L BUN 107 H Creatinine 9.8 H Glucose 140 H POC Glucose 143 H Calcium Phosphorus Iron Total Creatine Kinase CK-MB (CK-2) Troponin T NT-Pro-B Natriuret Pep Albumin Triglycerides HDL Cholesterol Urine WBC (Auto) Urine Creatinine Urine Total Protein Crossmatch 12/23/17 12/24/17 12/24/17 11:55 00:00 04:40 WBC 13.7 H RBC Hgb 9.8 L Hct 30.4 L MCV 81 L MCH 26 L MCHC RDW 19.1 H Plt Count Lymph % (Auto) 10.7 L Coles % (Auto) 12.2 H Coles # 1.7 H Seg Neutrophils % 75.0 H Seg Neuts % (Manual) Lymphocytes % (Manual) Monocytes % (Manual) Seg Neutrophils # 10.3 H Seg Neutrophils # Man Lymphocytes # (Manual) Monocytes # (Manual) D-Dimer Heparin Anti-Xa Level POC ABG pH POC ABG pCO2 POC ABG pO2 VBG pH Sodium Potassium Chloride Carbon Dioxide BUN Creatinine Glucose POC Glucose 161 H 143 H Calcium Phosphorus Iron Total Creatine Kinase CK-MB (CK-2) Troponin T NT-Pro-B Natriuret Pep Albumin Triglycerides HDL Cholesterol Urine WBC (Auto) Urine Creatinine Urine Total Protein Crossmatch 12/24/17 12/24/17 12/24/17 04:40 08:16 11:11 WBC RBC Hgb Hct MCV MCH MCHC RDW Plt Count Lymph % (Auto) Coles % (Auto) Coles # Seg Neutrophils % Seg Neuts % (Manual) Lymphocytes % (Manual) Monocytes % (Manual) Seg Neutrophils # Seg Neutrophils # Man Lymphocytes # (Manual) Monocytes # (Manual) D-Dimer Heparin Anti-Xa Level POC ABG pH POC ABG pCO2 POC ABG pO2 VBG pH Sodium Potassium 3.5 L D Chloride 96.8 L Carbon Dioxide 21 L BUN 52 H Creatinine 6.0 H Glucose 131 H POC Glucose 120 H 120 H Calcium Phosphorus Iron Total Creatine Kinase CK-MB (CK-2) Troponin T NT-Pro-B Natriuret Pep Albumin Triglycerides HDL Cholesterol Urine WBC (Auto) Urine Creatinine Urine Total Protein Crossmatch 12/24/17 12/24/17 12/25/17 13:33 16:07 00:45 WBC RBC Hgb Hct MCV MCH MCHC RDW Plt Count Lymph % (Auto) Coles % (Auto) Coles # Seg Neutrophils % Seg Neuts % (Manual) Lymphocytes % (Manual) Monocytes % (Manual) Seg Neutrophils # Seg Neutrophils # Man Lymphocytes # (Manual) Monocytes # (Manual) D-Dimer Heparin Anti-Xa Level POC ABG pH POC ABG pCO2 POC ABG pO2 VBG pH Sodium Potassium Chloride Carbon Dioxide BUN Creatinine Glucose POC Glucose 125 H 122 H 155 H Calcium Phosphorus Iron Total Creatine Kinase CK-MB (CK-2) Troponin T NT-Pro-B Natriuret Pep Albumin Triglycerides HDL Cholesterol Urine WBC (Auto) Urine Creatinine Urine Total Protein Crossmatch 12/25/17 12/25/17 12/25/17 04:29 04:29 05:19 WBC 12.2 H RBC Hgb 9.8 L Hct 31.2 L MCV 82 L MCH 26 L MCHC 31 L RDW 19.3 H Plt Count Lymph % (Auto) 10.5 L Coles % (Auto) 12.1 H Coles # 1.5 H Seg Neutrophils % 75.8 H Seg Neuts % (Manual) Lymphocytes % (Manual) Monocytes % (Manual) Seg Neutrophils # 9.3 H Seg Neutrophils # Man Lymphocytes # (Manual) Monocytes # (Manual) D-Dimer Heparin Anti-Xa Level POC ABG pH POC ABG pCO2 POC ABG pO2 VBG pH Sodium Potassium Chloride 96.1 L Carbon Dioxide 19 L BUN 75 H Creatinine 8.5 H Glucose 143 H POC Glucose 145 H Calcium Phosphorus Iron Total Creatine Kinase CK-MB (CK-2) Troponin T NT-Pro-B Natriuret Pep Albumin Triglycerides HDL Cholesterol Urine WBC (Auto) Urine Creatinine Urine Total Protein Crossmatch 12/25/17 12/25/17 12/26/17 12:02 22:36 00:08 WBC RBC Hgb Hct MCV MCH MCHC RDW Plt Count Lymph % (Auto) Coles % (Auto) Coles # Seg Neutrophils % Seg Neuts % (Manual) Lymphocytes % (Manual) Monocytes % (Manual) Seg Neutrophils # Seg Neutrophils # Man Lymphocytes # (Manual) Monocytes # (Manual) D-Dimer Heparin Anti-Xa Level 1.29 H POC ABG pH POC ABG pCO2 POC ABG pO2 VBG pH Sodium Potassium Chloride Carbon Dioxide BUN Creatinine Glucose POC Glucose 189 H 115 H Calcium Phosphorus Iron Total Creatine Kinase CK-MB (CK-2) Troponin T NT-Pro-B Natriuret Pep Albumin Triglycerides HDL Cholesterol Urine WBC (Auto) Urine Creatinine Urine Total Protein Crossmatch 12/26/17 12/26/17 12/27/17 03:29 03:29 05:28 WBC 12.2 H 11.8 H RBC 3.47 L 3.27 L Hgb 9.3 L 8.7 L Hct 28.6 L 26.2 L MCV 83 L 80 L MCH 27 L 27 L MCHC RDW 19.5 H 19.6 H Plt Count Lymph % (Auto) 11.8 L 10.1 L Coles % (Auto) 10.3 H 7.7 H Coles # 1.3 H 0.9 H Seg Neutrophils % 75.3 H 80.5 H Seg Neuts % (Manual) Lymphocytes % (Manual) Monocytes % (Manual) Seg Neutrophils # 9.2 H 9.5 H Seg Neutrophils # Man Lymphocytes # (Manual) Monocytes # (Manual) D-Dimer Heparin Anti-Xa Level POC ABG pH POC ABG pCO2 POC ABG pO2 VBG pH Sodium Potassium Chloride 92.7 L Carbon Dioxide 18 L BUN 90 H Creatinine 10.2 H Glucose 104 H POC Glucose Calcium Phosphorus Iron Total Creatine Kinase CK-MB (CK-2) Troponin T NT-Pro-B Natriuret Pep Albumin Triglycerides HDL Cholesterol Urine WBC (Auto) Urine Creatinine Urine Total Protein Crossmatch 12/27/17 12/27/17 12/27/17 05:28 11:25 16:26 WBC RBC Hgb Hct MCV MCH MCHC RDW Plt Count Lymph % (Auto) Coles % (Auto) Coles # Seg Neutrophils % Seg Neuts % (Manual) Lymphocytes % (Manual) Monocytes % (Manual) Seg Neutrophils # Seg Neutrophils # Man Lymphocytes # (Manual) Monocytes # (Manual) D-Dimer Heparin Anti-Xa Level POC ABG pH POC ABG pCO2 POC ABG pO2 VBG pH Sodium Potassium 3.1 L Chloride 95.0 L Carbon Dioxide BUN 64 H Creatinine 7.0 H Glucose POC Glucose 182 H 126 H Calcium Phosphorus Iron Total Creatine Kinase CK-MB (CK-2) Troponin T NT-Pro-B Natriuret Pep Albumin Triglycerides HDL Cholesterol Urine WBC (Auto) Urine Creatinine Urine Total Protein Crossmatch 12/27/17 12/28/17 12/28/17 21:27 02:42 02:42 WBC 19.4 H RBC 3.52 L Hgb 9.2 L Hct 28.5 L MCV 81 L MCH 26 L MCHC RDW 19.7 H Plt Count Lymph % (Auto) 7.0 L Coles % (Auto) Coles # 1.2 H Seg Neutrophils % 85.8 H Seg Neuts % (Manual) Lymphocytes % (Manual) Monocytes % (Manual) Seg Neutrophils # 16.6 H Seg Neutrophils # Man Lymphocytes # (Manual) Monocytes # (Manual) D-Dimer Heparin Anti-Xa Level POC ABG pH POC ABG pCO2 POC ABG pO2 VBG pH Sodium Potassium 3.5 L Chloride 97.2 L Carbon Dioxide 18 L BUN 79 H Creatinine 8.6 H Glucose 124 H POC Glucose 107 H Calcium 8.2 L Phosphorus 7.50 H Iron Total Creatine Kinase CK-MB (CK-2) Troponin T NT-Pro-B Natriuret Pep Albumin 3.3 L Triglycerides HDL Cholesterol Urine WBC (Auto) Urine Creatinine Urine Total Protein Crossmatch 12/28/17 12/28/17 07:40 08:10 WBC RBC Hgb Hct MCV MCH MCHC RDW Plt Count Lymph % (Auto) Coles % (Auto) Coles # Seg Neutrophils % Seg Neuts % (Manual) Lymphocytes % (Manual) Monocytes % (Manual) Seg Neutrophils # Seg Neutrophils # Man Lymphocytes # (Manual) Monocytes # (Manual) D-Dimer Heparin Anti-Xa Level 0.11 L POC ABG pH POC ABG pCO2 POC ABG pO2 VBG pH Sodium Potassium Chloride Carbon Dioxide BUN Creatinine Glucose POC Glucose 124 H Calcium Phosphorus Iron Total Creatine Kinase CK-MB (CK-2) Troponin T NT-Pro-B Natriuret Pep Albumin Triglycerides HDL Cholesterol Urine WBC (Auto) Urine Creatinine Urine Total Protein Crossmatch Allied health notes reviewed: nursing
[2017-12-28] MEDS ORDERED: GOLYTELY PO ONE (16:00)
[2017-12-28] MEDS: COREG PO SCH ×3 (16:12→22:14)
[2017-12-28] MEDS: FLAGYL PO SCH ×3 (16:16→22:14)
[2017-12-28] MEDS: HEPARIN/ 0.45% NACL-25,000 UNIT/500 ML 25,000 UNIT/500 ML BAG IV SCH (21:38)
[2017-12-29 01:03] LABS: Hematocrit 27.3 % (35.5-45.6); Hemoglobin 8.9 gm/dl (11.8-15.2); Mean Corpuscular HGB Conc 33 % (32-34); Mean Corpuscular Hemoglobin 27 pg (28-32); Mean Corpuscular Volume 81 fl (84-94); Platelet Count 168 K/mm3 (140-440); Red Blood Count 3.38 M/mm3 (3.65-5.03); Red Cell Distribution Width 19.4 % (13.2-15.2)
[2017-12-29 01:20] LABS: Calcium 8.2 mg/dL (8.4-10.2)
[2017-12-29 03:43] LABS: Anisocytosis 1+; Band Neutrophils # (Manual) 0.4 K/mm3; Basophils % (Manual) 0 % (0.0-1.8); Eosinophils % (Manual) 0 % (0.0-4.3); Hypochromasia 1+; Platelet Estimate Consistent w Auto; Total Cells Counted 100
[2017-12-29] MEDS: LOPRESSOR IV SCH ×3 (03:46→22:30)
[2017-12-29 06:14] LABS: INR 1.15 (0.87-1.13)
[2017-12-29 06:17] LABS: Heparin anti-factor XA < 0.10 U.I./ml (0.3-0.7)
--- NOTE | 2017-12-29 06:54 | Progress Note ---
Assessment and Plan - Patient Problems (1) BALDO (acute kidney injury) Current Visit: Yes Status: Acute Plan to address problem: Likely in the setting of acure cardiorenal syndrome. No signs of renal recovery at this time and patient remains on dialysis, on TTS schedule He has had permcath placed and awaiting outpatient dialysis to be set up. Femoral vascath removed. Next HD session tommorow. (2) Acute exacerbation of CHF (congestive heart failure) Current Visit: Yes Status: Acute Qualifiers: Heart failure type: combined systolic and diastolic Qualified Code(s): I50.43 - Acute on chronic combined systolic (congestive) and diastolic ( congestive) heart failure Plan to address problem: Volume status improved with dialysis. (3) Acidosis, metabolic Current Visit: Yes Status: Acute Plan to address problem: Improved with dialysis. Will continue to monitor. (4) Hyperkalemia Current Visit: Yes Status: Acute Plan to address problem: Improved with clearance provided with dialysis. He is NPO at present. He should be on a low K renal diet when not NPO. Will continue to monitor. Morning K noted to be 3.1. Will change his potassium bath to 3K on future HD sessions. (5) Respiratory failure Current Visit: Yes Status: Acute Qualifiers: Chronicity: acute Respiratory failure complication: hypoxia Qualified Code(s): J96.01 - Acute respiratory failure with hypoxia Plan to address problem: Tolerating well with adequate O2 sats on O2 via NC. Further management per respiratory team. (6) Severe anemia Current Visit: Yes Status: Chronic Plan to address problem: Plan for EGD and colonoscopy today. Subjective Principal diagnosis: Anemia Interval history: No acute issues overnight. Tolerated HD. Labs noted. Plan for EGD and colonoscopy today per GI notes. Objective - Vital Signs Vital signs: Vital Signs - 12hr 12/28/17 12/28/17 12/28/17 19:57 19:58 20:00 Temperature 100.3 F H 100.3 F H Pulse Rate 129 H Pulse Rate [ Anterior Bilateral Throughout] Pulse Rate [ From Monitor] Respiratory 20 24 Rate Respiratory Rate [Anterior Bilateral Throughout] Blood Pressure 136/63 O2 Sat by Pulse Oximetry 12/28/17 12/28/17 12/28/17 20:30 20:31 20:46 Temperature Pulse Rate Pulse Rate [ 93 H 91 H Anterior Bilateral Throughout] Pulse Rate [ From Monitor] Respiratory Rate Respiratory 18 16 Rate [Anterior Bilateral Throughout] Blood Pressure O2 Sat by Pulse 96 Oximetry 12/28/17 12/28/17 12/28/17 20:53 20:54 22:00 Temperature Pulse Rate Pulse Rate [ Anterior Bilateral Throughout] Pulse Rate [ 82 From Monitor] Respiratory 20 Rate Respiratory Rate [Anterior Bilateral Throughout] Blood Pressure 136/63 136/63 O2 Sat by Pulse 92 Oximetry 12/29/17 12/29/17 02:35 03:46 Temperature 99.2 F Pulse Rate 87 87 Pulse Rate [ Anterior Bilateral Throughout] Pulse Rate [ From Monitor] Respiratory 20 Rate Respiratory Rate [Anterior Bilateral Throughout] Blood Pressure 115/71 115/71 O2 Sat by Pulse 98 Oximetry - General Appearance General appearance: well-developed, appears stated age EENT: ATNC, PERRL Neck: no JVD, no thyromegaly Respiratory: Present: Clear to Ascultation, Normal Exam Cardiology: regular, S1S2 Gastrointestinal: normal Integumentary: no rash, warm and dry Neurologic: no focal deficit Musculoskeletal: other (-edema) Psychiatric: cooperative - Lab 12/29/17 00:42 12/29/17 00:42 Most recent lab results Calcium 8.2 mg/dL (8.4-10.2) L 12/29/17 00:42 Phosphorus 7.50 mg/dL (2.5-4.5) H 12/28/17 02:42 Urine Creatinine 81.7 mg/dL (0.1-20.0) H 12/16/17 12:05 Urine Sodium 62 mmol/L 12/16/17 12:05 Urine Total Protein 493 mg/dL (5-11.8) H 12/16/17 12:05 - Allied health notes Allied health notes reviewed: nursing
[2017-12-29] MEDS: FLAGYL PO SCH (07:01)
--- NOTE | 2017-12-29 07:50 | Progress Note ---
Assessment and Plan Assessment and plan: A/P Worsening Leukocytosis/ Sepsis ID consult add Zosyn Obtain a CXR Panculture pt close monitoring further mgt per findings (Consulted and d/w the ID specialist agrees with the oral Flagyl, but reccs to increase to 500mg po tid, to d/c Zosyn. He reccs : if diarrhea persists, then obtain C diff PCR, add oral Vanc and notify the ID specialist. ID 's inputs and reccs appreciated. Mood Change vs Depressive mood 2/2 current medical condition Obtain psych consult for eval and reccs No SI/HI Acute Kidney injury/ATN HD per renal avoid nephrotoxic agents. Acute Combined systolic and diastolic HF Cardio on board continue Coreg Unable to give ACEI or ARBs due to renal fxn fluid restriction and I/Os. Acute Hypoxic resp failure, improved wean off O2 by NC as tolerated pulm on board Right DVT continue Heparin drip plan to switch to NOAC Bleeding precautions at all times Profound Anemia s/p PRBC monitor closely bleeding precautions at all times Further pt mgt per hospital corurse HTN. essen, chronic continue meds. More than 35 mins spent Total Time Spent with Patient (Minutes): More than 35 mins History Interval history: Pt seen and exam. Pt appeared sad and withdrawn, talking less than usual. Answered yes or no to my questions. RN also brought this change in the pt's mood to my attention. Pt remains on O2 by [place]. Barely drank his golytely for his GI bowel prep. wbc continues to worsen, up to 21k, from 19k yesterday, from 11k 2 days ago. Consulted and d/w the ID specialist agrees with the oral Flagyl, but reccs to increase to 500mg po tid, to d/c Zosyn. He reccs : if diarrhea persists, then obtain C diff PCR, add oral Vanc and notify the ID specialist. ID 's inputs and reccs appreciated. Hospitalist Physical - Constitutional Vitals: Temp Pulse Resp BP Pulse Ox 99.2 F 87 20 115/71 98 12/29/17 02:35 12/29/17 03:46 12/29/17 02:35 12/29/17 03:46 12/29/17 02:35 General appearance: Present: no acute distress, obese, other (ill appearing. spoke in short words Yes or No. ) - EENT Eyes: Present: PERRL, EOM intact, scleral icterus ENT: hearing intact, clear oral mucosa - Neck Neck: Present: supple, normal ROM - Respiratory Respiratory: bilateral: rhonchi, negative: rales, wheezing, other (Fair AE bilaterally. ) - Cardiovascular Rhythm: regular Heart Sounds: Present: S1 & S2 - Extremities Extremities: pulses intact, No edema, normal temperature, normal color - Abdominal General gastrointestinal: soft, non-tender, normal bowel sounds, other ( protuberant) - Integumentary Integumentary: Present: clear, warm, dry - Psychiatric Psychiatric: cooperative, depressed (appeared and acted depressed. ) - Neurologic Neurologic: CNII-XII intact, moves all extremities - Allied Health Allied health notes reviewed: nursing, PT, RT, social work, case management Results - Labs CBC & Chem 7: 12/29/17 00:42 12/29/17 00:42 Labs: Laboratory Last Values WBC 21.3 K/mm3 (4.5-11.0) H 12/29/17 00:42 RBC 3.38 M/mm3 (3.65-5.03) L 12/29/17 00:42 Hgb 8.9 gm/dl (11.8-15.2) L 12/29/17 00:42 Hct 27.3 % (35.5-45.6) L 12/29/17 00:42 MCV 81 fl (84-94) L 12/29/17 00:42 MCH 27 pg (28-32) L 12/29/17 00:42 MCHC 33 % (32-34) 12/29/17 00:42 RDW 19.4 % (13.2-15.2) H 12/29/17 00:42 Plt Count 168 K/mm3 (140-440) 12/29/17 00:42 Lymph % (Auto) 7.0 % (13.4-35.0) L 12/28/17 02:42 Price % (Auto) 6.2 % (0.0-7.3) 12/28/17 02:42 Eos % (Auto) 0.6 % (0.0-4.3) 12/28/17 02:42 Baso % (Auto) 0.4 % (0.0-1.8) 12/28/17 02:42 Lymph # 1.4 K/mm3 (1.2-5.4) 12/28/17 02:42 Price # 1.2 K/mm3 (0.0-0.8) H 12/28/17 02:42 Eos # 0.1 K/mm3 (0.0-0.4) 12/28/17 02:42 Baso # 0.1 K/mm3 (0.0-0.1) 12/28/17 02:42 Add Manual Diff Complete 12/29/17 00:42 Total Counted 100 12/29/17 00:42 Seg Neutrophils % 85.8 % (40.0-70.0) H 12/28/17 02:42 Seg Neuts % (Manual) 93.0 % (40.0-70.0) H 12/29/17 00:42 Band Neutrophils % 2.0 % 12/29/17 00:42 Lymphocytes % (Manual) 3.0 % (13.4-35.0) L 12/29/17 00:42 Reactive Lymphs % (Man) 0 % 12/29/17 00:42 Monocytes % (Manual) 2.0 % (0.0-7.3) 12/29/17 00:42 Eosinophils % (Manual) 0 % (0.0-4.3) 12/29/17 00:42 Basophils % (Manual) 0 % (0.0-1.8) 12/29/17 00:42 Metamyelocytes % 0 % 12/29/17 00:42 Myelocytes % 0 % 12/29/17 00:42 Promyelocytes % 0 % 12/29/17 00:42 Blast Cells % 0 % 12/29/17 00:42 Nucleated RBC % Not Reportable 12/29/17 00:42 Seg Neutrophils # 16.6 K/mm3 (1.8-7.7) H 12/28/17 02:42 Seg Neutrophils # Man 19.8 K/mm3 (1.8-7.7) H 12/29/17 00:42 Band Neutrophils # 0.4 K/mm3 12/29/17 00:42 Lymphocytes # (Manual) 0.6 K/mm3 (1.2-5.4) L 12/29/17 00:42 Abs React Lymphs (Man) 0.0 K/mm3 12/29/17 00:42 Monocytes # (Manual) 0.4 K/mm3 (0.0-0.8) 12/29/17 00:42 Eosinophils # (Manual) 0.0 K/mm3 (0.0-0.4) 12/29/17 00:42 Basophils # (Manual) 0.0 K/mm3 (0.0-0.1) 12/29/17 00:42 Metamyelocytes # 0.0 K/mm3 12/29/17 00:42 Myelocytes # 0.0 K/mm3 12/29/17 00:42 Promyelocytes # 0.0 K/mm3 12/29/17 00:42 Blast Cells # 0.0 K/mm3 12/29/17 00:42 WBC Morphology Not Reportable 12/29/17 00:42 Hypersegmented Neuts Not Reportable 12/29/17 00:42 Hyposegmented Neuts Not Reportable 12/29/17 00:42 Hypogranular Neuts Not Reportable 12/29/17 00:42 Smudge Cells Not Reportable 12/29/17 00:42 Toxic Granulation Not Reportable 12/29/17 00:42 Toxic Vacuolation Not Reportable 12/29/17 00:42 Dohle Bodies Not Reportable 12/29/17 00:42 Pelger-Huet Anomaly Not Reportable 12/29/17 00:42 Td Rods Not Reportable 12/29/17 00:42 Platelet Estimate Consistent w auto 12/29/17 00:42 Clumped Platelets Not Reportable 12/29/17 00:42 Plt Clumps, EDTA Not Reportable 12/29/17 00:42 Large Platelets Not Reportable 12/29/17 00:42 Giant Platelets Not Reportable 12/29/17 00:42 Platelet Satelliting Not Reportable 12/29/17 00:42 Plt Morphology Comment Not Reportable 12/29/17 00:42 RBC Morphology Not Reportable 12/29/17 00:42 Dimorphic RBCs Not Reportable 12/29/17 00:42 Polychromasia Not Reportable 12/29/17 00:42 Hypochromasia 1+ 12/29/17 00:42 Poikilocytosis Not Reportable 12/29/17 00:42 Anisocytosis 1+ 12/29/17 00:42 Microcytosis 1+ 12/29/17 00:42 Macrocytosis Not Reportable 12/29/17 00:42 Spherocytes Not Reportable 12/29/17 00:42 Pappenheimer Bodies Not Reportable 12/29/17 00:42 Sickle Cells Not Reportable 12/29/17 00:42 Target Cells Not Reportable 12/29/17 00:42 Tear Drop Cells Not Reportable 12/29/17 00:42 Ovalocytes Not Reportable 12/29/17 00:42 Helmet Cells Not Reportable 12/29/17 00:42 Araiza-Lago Bodies Not Reportable 12/29/17 00:42 Savannah Rings Not Reportable 12/29/17 00:42 Rudolph Cells Not Reportable 12/29/17 00:42 Bite Cells Not Reportable 12/29/17 00:42 Crenated Cell Not Reportable 12/29/17 00:42 Elliptocytes Not Reportable 12/29/17 00:42 Acanthocytes (Spur) Not Reportable 12/29/17 00:42 Rouleaux Not Reportable 12/29/17 00:42 Hemoglobin C Crystals Not Reportable 12/29/17 00:42 Schistocytes Not Reportable 12/29/17 00:42 Malaria parasites Not Reportable 12/29/17 00:42 [place] Bodies Not Reportable 12/29/17 00:42 Hem Pathologist Commnt No 12/29/17 00:42 PT 15.3 Sec. (12.2-14.9) H 12/29/17 05:48 INR 1.15 (0.87-1.13) H 12/29/17 05:48 APTT 27.9 Sec. (24.2-36.6) 12/19/17 19:17 D-Dimer 1108.83 ng/mlDDU (0-234) H 12/15/17 17:16 Heparin Anti-Xa Level < 0.10 U.I./ml (0.3-0.7) L 12/29/17 05:48 POC ABG pH 7.446 (7.35-7.45) 12/21/17 03:44 POC ABG pCO2 27.6 (35-45) L 12/21/17 03:44 POC ABG pO2 90 (80-105) 12/21/17 03:44 POC ABG HCO3 19.0 12/21/17 03:44 POC ABG Total CO2 20 12/21/17 03:44 POC ABG O2 Sat 97 12/21/17 03:44 POC ABG Base Excess -5 12/21/17 03:44 VBG pH 7.204 (7.320-7.420) L 12/15/17 18:01 FiO2 30 % 12/21/17 03:44 Sodium 138 mmol/L (137-145) 12/29/17 00:42 Potassium 3.1 mmol/L (3.6-5.0) L 12/29/17 00:42 Chloride 98.2 mmol/L (98-107) 12/29/17 00:42 Carbon Dioxide 23 mmol/L (22-30) 12/29/17 00:42 Anion Gap 20 mmol/L 12/29/17 00:42 BUN 42 mg/dL (9-20) H 12/29/17 00:42 Creatinine 6.0 mg/dL (0.8-1.5) H 12/29/17 00:42 Estimated GFR 9 ml/min 12/29/17 00:42 BUN/Creatinine Ratio 7 % 12/29/17 00:42 Glucose 141 mg/dL (75-100) H 12/29/17 00:42 POC Glucose 102 (70-105) 12/29/17 07:15 Hemoglobin A1c < 4.2 % (4-6) 12/15/17 17:16 Lactic Acid 1.40 mmol/L (0.7-2.0) 12/15/17 17:16 Calcium 8.2 mg/dL (8.4-10.2) L 12/29/17 00:42 Phosphorus 7.50 mg/dL (2.5-4.5) H 12/28/17 02:42 Iron 37 ug/dL (49-181) L 12/16/17 00:24 TIBC 416 mcg/dL (250-450) 12/16/17 00:24 Ferritin 16.1 ng/mL (13.0-400.0) 12/16/17 00:24 Total Bilirubin 0.30 mg/dL (0.1-1.2) 12/28/17 02:42 AST 22 units/L (5-40) 12/28/17 02:42 ALT 17 units/L (7-56) 12/28/17 02:42 Alkaline Phosphatase 61 units/L (35-129) 12/28/17 02:42 Total Creatine Kinase 736 units/L (55-170) H 12/15/17 17:16 CK-MB (CK-2) 7.7 ng/mL (0.0-4.0) H 12/15/17 17:16 CK-MB (CK-2) Rel Index 1.0 (0-4) 12/15/17 17:16 Troponin T 0.067 ng/mL (0.00-0.029) H 12/15/17 17:16 NT-Pro-B Natriuret Pep 93121 pg/mL (0-900) H 12/15/17 17:16 Total Protein 6.7 g/dL (6.3-8.2) 12/28/17 02:42 Albumin 3.3 g/dL (3.9-5) L 12/28/17 02:42 Albumin/Globulin Ratio 1.0 % 12/28/17 02:42 Triglycerides 440 mg/dL (2-149) H 12/19/17 05:10 Cholesterol 163 mg/dL (50-199) 12/15/17 17:16 LDL Cholesterol Direct 102 mg/dL (50-130) 12/15/17 17:16 HDL Cholesterol 29 mg/dL (40-59) L 12/15/17 17:16 Cholesterol/HDL Ratio 5.62 % 12/15/17 17:16 Vitamin B12 221.6 pg/mL (211-911) 12/16/17 00:24 Folate 14.63 ng/mL (7.3-26.0) 12/16/17 00:24 Urine Color Yellow (Yellow) 12/16/17 12:05 Urine Turbidity Cloudy (Clear) 12/16/17 12:05 Urine pH 5.0 (5.0-7.0) 12/16/17 12:05 Ur Specific Bath 1.012 (1.003-1.030) 12/16/17 12:05 Urine Protein >500 mg/dL (Negative) 12/16/17 12:05 Urine Glucose (UA) 50 mg/dL (Negative) 12/16/17 12:05 Urine Ketones Neg mg/dL (Negative) 12/16/17 12:05 Urine Blood Mod (Negative) 12/16/17 12:05 Urine Nitrite Neg (Negative) 12/16/17 12:05 Urine Bilirubin Neg (Negative) 12/16/17 12:05 Urine Urobilinogen < 2.0 mg/dL (<2.0) 12/16/17 12:05 Ur Leukocyte Esterase Lg (Negative) 12/16/17 12:05 Urine WBC (Auto) > 182.0 /HPF (0.0-6.0) H 12/16/17 12:05 Urine RBC (Auto) 30.0 /HPF (0.0-6.0) 12/16/17 12:05 U Epithel Cells (Auto) 1.0 /HPF (0-13.0) 12/16/17 12:05 Urine Bacteria (Auto) 1+ /HPF (Negative) 12/16/17 12:05 Urine WBC Clumps 3+ /HPF 12/16/17 12:05 Urine Mucus 1+ /HPF 12/16/17 12:05 Urine Creatinine 81.7 mg/dL (0.1-20.0) H 12/16/17 12:05 Urine Sodium 62 mmol/L 12/16/17 12:05 Urine Total Protein 493 mg/dL (5-11.8) H 12/16/17 12:05 Urine Opiates Screen Presumptive negative 12/16/17 12:05 Urine Methadone Screen Presumptive negative 12/16/17 12:05 Ur Barbiturates Screen Presumptive negative 12/16/17 12:05 Ur Phencyclidine Scrn Presumptive negative 12/16/17 12:05 Ur Amphetamines Screen Presumptive negative 12/16/17 12:05 U Benzodiazepines Scrn Presumptive positive 12/16/17 12:05 Urine Cocaine Screen Presumptive negative 12/16/17 12:05 U Marijuana (THC) Screen Presumptive negative 12/16/17 12:05 Drugs of Abuse Note Disclamer 12/16/17 12:05 Hepatitis A IgM Ab Nonreactive (NonReactive) 12/16/17 04:47 Hep Bs Antigen Non-reactive (Negative) 12/16/17 04:47 Hep B Core IgM Ab Non-reactive (NonReactive) 12/16/17 04:47 Hepatitis C Antibody Non-reactive (NonReactive) 12/16/17 04:47 Blood Type A POSITIVE 12/15/17 17:45 Antibody Screen Negative 12/15/17 17:45 Crossmatch See Detail 12/15/17 17:45 - Imaging and Cardiology Chest x-ray: report reviewed, image reviewed
[2017-12-29] MEDS: DUONEB *Not for PRN Use IH SCH ×2 (08:39→09:33)
--- NOTE | 2017-12-29 09:08 | XRay Report ---
AP CHEST: HISTORY: worsening leukocytosis Mild cardiomegaly and pulmonary venous congestion are stable since 12/22/17. Right IJ venous catheter has been inserted which terminates in the right atrium. The lungs are clear. No evidence for infiltrate, pleural effusion or pneumothorax. IMPRESSION: No acute process. Mild cardiomegaly and pulmonary venous congestion.
[2017-12-29] MEDS: COREG PO SCH (09:32)
--- NOTE | 2017-12-29 09:51 | Progress Note ---
Assessment and Plan Acute respiratory failure now extubated Acute on chronic renal failure s/p urgent dialysis Anemia s/p transfusion of PRBCs Acute systolic heart failure EF 40-45% by echo Hypertension Acute right iliac DVT on IV heparin Ileus vs partial small bowel obstruction Conservative cardiac management. Subjective Date of service: 12/29/17 Principal diagnosis: Anemia Interval history: Patient is resting in bed comfortably. No cardiac events reported overnight. Objective Vital Signs Temp Pulse Pulse Pulse Resp Resp BP 12/29/17 09:46 12/29/17 09:32 90 131/76 12/29/17 09:30 12/29/17 08:00 88 12/29/17 07:26 98.6 F 85 19 124/75 12/29/17 03:46 87 115/71 12/29/17 02:35 99.2 F 87 20 115/71 12/28/17 22:00 82 20 12/28/17 20:54 136/63 12/28/17 20:53 136/63 12/28/17 20:46 91 H 16 12/28/17 20:31 93 H 18 12/28/17 20:30 12/28/17 20:00 129 H 12/28/17 19:58 100.3 F H 24 12/28/17 19:57 100.3 F H 20 136/63 12/28/17 16:12 129 H 132/73 12/28/17 15:43 98 H 17 12/28/17 14:10 98.2 F 110 H 18 130/90 12/28/17 14:00 116 H 99 H 18 123/92 12/28/17 13:45 122 H 160/132 12/28/17 13:30 78 202/93 12/28/17 13:15 80 190/90 12/28/17 13:00 82 188/86 12/28/17 12:45 109 H 144/82 12/28/17 12:30 108 H 142/94 12/28/17 12:15 114 H 140/90 12/28/17 12:00 116 H 141/91 12/28/17 11:45 109 H 142/95 12/28/17 11:30 111 H 137/93 12/28/17 11:15 114 H 123/87 12/28/17 11:00 105 H 140/87 12/28/17 10:45 97 H 138/90 12/28/17 10:30 98.3 F 91 H 18 158/93 12/28/17 10:00 92 H 20 Pulse Ox 12/29/17 09:46 94 12/29/17 09:32 12/29/17 09:30 100 12/29/17 08:00 12/29/17 07:26 95 12/29/17 03:46 12/29/17 02:35 98 12/28/17 22:00 92 12/28/17 20:54 12/28/17 20:53 12/28/17 20:46 12/28/17 20:31 12/28/17 20:30 96 12/28/17 20:00 12/28/17 19:58 12/28/17 19:57 12/28/17 16:12 12/28/17 15:43 12/28/17 14:10 12/28/17 14:00 12/28/17 13:45 12/28/17 13:30 12/28/17 13:15 12/28/17 13:00 12/28/17 12:45 12/28/17 12:30 12/28/17 12:15 12/28/17 12:00 12/28/17 11:45 12/28/17 11:30 12/28/17 11:15 12/28/17 11:00 12/28/17 10:45 12/28/17 10:30 12/28/17 10:00 92 - Physical Examination General: No Apparent Distress HEENT: Positive: PERRL Cardiac: Positive: Reg Rate and Rhythm Neuro: Positive: Grossly Intact Abdomen: Positive: Distended Extremities: Absent: edema - Labs and Meds Coagulation 12/29/17 Range/Units 05:48 PT 15.3 H (12.2-14.9) Sec. INR 1.15 H (0.87-1.13) CBC 12/29/17 Range/Units 00:42 WBC 21.3 H (4.5-11.0) K/mm3 RBC 3.38 L (3.65-5.03) M/mm3 Hgb 8.9 L (11.8-15.2) gm/dl Hct 27.3 L (35.5-45.6) % Plt Count 168 (140-440) K/mm3 Comprehensive Metabolic Panel 12/29/17 Range/Units 00:42 Sodium 138 (137-145) mmol/L Potassium 3.1 L (3.6-5.0) mmol/L Chloride 98.2 (98-107) mmol/L Carbon Dioxide 23 (22-30) mmol/L BUN 42 H (9-20) mg/dL Creatinine 6.0 H (0.8-1.5) mg/dL Glucose 141 H (75-100) mg/dL Calcium 8.2 L (8.4-10.2) mg/dL - Allied health notes Allied health notes reviewed: nursing
[2017-12-29] MEDS ORDERED: ZOSYN/NS 2.25 GM/50ML 2.25 GM/50 ML BAG IV SCH ×2 (10:00→14:00)
[2017-12-29] MEDS ORDERED: HEPARIN 10,000 UNITS/10 ML ONE (11:02)
--- NOTE | 2017-12-29 11:17 | Consultation ---
History of Present Illness - Reason for Consult Consult date: 12/29/17 worsening leucocytosis, concern for sepsis Requesting physician: FARIDA VELIZ - History of Present Illness The patient is a 67-year-old male who was admitted to the hospital on 2017 with complaints of shortness of breath. Upon evaluation, he was found to have respiratory failure, acute on chronic renal failure, acidosis. His hospital stay required ICU stay, mechanical ventilation, hemodialysis. He initially had a femoral HD catheter which was recently converted to a right subclavian permacath. He also had received empiric IV Zosyn and vancomycin. Patient also received a GI consult due to concerns for anemia. He had a CT abdomen which did not reveal any obvious source of bleeding. He was planned for an EGD and colonoscopy and has recently started the GoLYTELY prep. He has been having some abdominal distention as well and was evaluated by general surgery. Due to worsening leukocytosis, infectious diseases was consulted today. The patient denies any shortness of breath, reports just a minimal cough. He denies any nausea or vomiting, denies any abdominal pain. He does report multiple loose and watery bowel movements for the last few days. He denies any urinary burning. He denies any fever, has been having low-grade temperatures with a MAXIMUM TEMPERATURE of 99.2F last night. Patient was originally born in [place] and moved to the [place] 40 years ago. 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 Denies any smoking, alcohol or recreational drug use. Review of Systems: General: no fevers,chills or rigors HEENT: no new visual disturbance Respiratory: mild cough, no sputum, hemoptysis or shortness of breath Cardiovascular: No chest pain, syncope Gastrointestinal: No nausea, vomiting. diarrhea / loose stools + Genitourinary: No dysuria or hematuria Musculoskeletal: No new or worsening neck pain or back pain Neurologic: No headaches, seizures Hematologic: No easy bruising or bleeding Endocrine: No night sweats or acute weight loss Skin: negative for rash, jaundice Psychiatric: No suicidal or homicidal ideation Past History Past Medical History: diabetes, hypertension, renal failure Past Surgical History: No surgical history Social history: no significant social history Family history: no significant family history Medications and Allergies Allergies Allergy/AdvReac Type Severity Reaction Status Date / Time No Known Allergies Allergy Verified 12/15/17 17:22 Home Medications Medication Instructions Recorded Confirmed Last Taken Type Labetalol [Normodyne] 300 mg PO TID 12/27/17 12/27/17 Unknown History Telmisartan [Micardis] 80 mg PO DAILY 12/27/17 12/27/17 Unknown History Valsartan 320 mg PO DAILY 12/27/17 12/27/17 Unknown History Active Meds: Active Medications Albuterol (Proventil) 2.5 mg IH Q4HRT PRN PRN Reason: Shortness Of Breath Last Admin: 12/16/17 01:10 Dose: 2.5 mg Albuterol/Ipratropium (Duoneb *Not For Prn Use*) 1 ampul IH TIDRT [facility] Last Admin: 12/29/17 09:33 Dose: 1 ampul Carvedilol (Coreg) 6.25 mg PO BID [facility] Last Admin: 12/29/17 09:32 Dose: 6.25 mg Haloperidol Lactate (Haldol) 5 mg IV Q6H PRN PRN Reason: Agitation Last Admin: 12/24/17 00:01 Dose: 5 mg Heparin Sodium (Porcine) (Heparin 10,000 Units/10 Ml) 3,100 unit IV ONCE ONE Stop: 12/29/17 12:01 Last Admin: 12/29/17 11:10 Dose: 3,100 unit Hydralazine HCl (Apresoline) 20 mg IV Q6HR PRN PRN Reason: Hypertension Last Admin: 12/20/17 13:00 Dose: 20 mg Heparin Sodium/Sodium Chloride (Heparin/ 0.45% Nacl-25,000 Unit/500 Ml) 25,000 unit in 500 mls @ 23 mls/hr IV TITR NIYA; Protocol Last Titration: 12/29/17 01:14 Dose: 1,267 units/hr, 25.34 mls/hr Sodium Chloride (Nacl 0.9%) 100 mls @ 999 mls/hr IV MICHAELA PRN PRN Reason: Hypotension Piperacillin Sod/Tazobactam Sod (Zosyn/Ns 2.25 Gm/50ml) 2.25 gm in 50 mls @ 100 mls/hr IV Q8HR [facility]; Protocol Metoprolol Tartrate (Lopressor) 5 mg IV Q8H [facility] Last Admin: 12/29/17 03:46 Dose: Not Given Metronidazole (Flagyl) 250 mg PO Q8HR [facility]; Protocol Last Admin: 12/29/17 07:01 Dose: Not Given Ondansetron HCl (Zofran) 4 mg IV Q8H PRN PRN Reason: Nausea And Vomiting Physical Examination - Physical Exam Narrative exam: Physical Exam: Constitutional: Alert, cooperative. No acute distress Head, Ears, Nose: Normocephalic, atraumatic. External ears, nose normal Eyes: Conjunctivae/corneas clear. No icterus. No ptosis. Neck: Supple, no meningeal signs Oral: edentulous mainly, no thrush Cardiovascular: S1, S2 normal. Respiratory: Good air entry, bilaterally with basal crackles GI: Soft, mildly distended, non-tender; bowel sounds normal. No peritoneal signs Musculoskeletal: No pedal edema, no cyanosis. Skin: No rash or abscess Hem/Lymphatic: No palpable cervical or supraclavicular nodes. No lymphangitis Psych: Mood ok. Affect normal Neurological: Awake, alert, oriented. No gross abnormality Lines: Right subclavian HD cath, c/d/i - Constitutional Vitals: Vital Signs Temp Pulse Resp BP Pulse Ox 98.6 F 90 20 131/76 94 12/29/17 07:26 12/29/17 09:43 12/29/17 09:43 12/29/17 09:32 12/29/17 09:46 Temperature -Last 24 Hours Temperature 98.6 F Temperature 99.2 F Temperature 100.3 F Temperature 100.3 F Temperature 98.2 F Results - Labs CBC & Chem 7: 12/29/17 00:42 12/29/17 00:42 Labs: Abnormal lab results 12/28/17 12/28/17 12/28/17 Range/Units 16:09 16:34 21:45 WBC (4.5-11.0) K/mm3 RBC (3.65-5.03) M/mm3 Hgb (11.8-15.2) gm/dl Hct (35.5-45.6) % MCV (84-94) fl MCH (28-32) pg RDW (13.2-15.2) % Seg Neuts % (Manual) (40.0-70.0) % Lymphocytes % (Manual) (13.4-35.0) % Seg Neutrophils # Man (1.8-7.7) K/mm3 Lymphocytes # (Manual) (1.2-5.4) K/mm3 PT (12.2-14.9) Sec. INR (0.87-1.13) Heparin Anti-Xa Level 0.26 L (0.3-0.7) U.I./ml Potassium (3.6-5.0) mmol/L BUN (9-20) mg/dL Creatinine (0.8-1.5) mg/dL Glucose (75-100) mg/dL POC Glucose 140 H 165 H (70-105) Calcium (8.4-10.2) mg/dL 12/28/17 12/29/17 12/29/17 Range/Units 23:18 00:42 00:42 WBC 21.3 H (4.5-11.0) K/mm3 RBC 3.38 L (3.65-5.03) M/mm3 Hgb 8.9 L (11.8-15.2) gm/dl Hct 27.3 L (35.5-45.6) % MCV 81 L (84-94) fl MCH 27 L (28-32) pg RDW 19.4 H (13.2-15.2) % Seg Neuts % (Manual) 93.0 H (40.0-70.0) % Lymphocytes % (Manual) 3.0 L (13.4-35.0) % Seg Neutrophils # Man 19.8 H (1.8-7.7) K/mm3 Lymphocytes # (Manual) 0.6 L (1.2-5.4) K/mm3 PT (12.2-14.9) Sec. INR (0.87-1.13) Heparin Anti-Xa Level < 0.10 L (0.3-0.7) U.I./ml Potassium 3.1 L (3.6-5.0) mmol/L BUN 42 H (9-20) mg/dL Creatinine 6.0 H (0.8-1.5) mg/dL Glucose 141 H (75-100) mg/dL POC Glucose (70-105) Calcium 8.2 L (8.4-10.2) mg/dL 12/29/17 Range/Units 05:48 WBC (4.5-11.0) K/mm3 RBC (3.65-5.03) M/mm3 Hgb (11.8-15.2) gm/dl Hct (35.5-45.6) % MCV (84-94) fl MCH (28-32) pg RDW (13.2-15.2) % Seg Neuts % (Manual) (40.0-70.0) % Lymphocytes % (Manual) (13.4-35.0) % Seg Neutrophils # Man (1.8-7.7) K/mm3 Lymphocytes # (Manual) (1.2-5.4) K/mm3 PT 15.3 H (12.2-14.9) Sec. INR 1.15 H (0.87-1.13) Heparin Anti-Xa Level < 0.10 L (0.3-0.7) U.I./ml Potassium (3.6-5.0) mmol/L BUN (9-20) mg/dL Creatinine (0.8-1.5) mg/dL Glucose (75-100) mg/dL POC Glucose (70-105) Calcium (8.4-10.2) mg/dL - Imaging and Cardiology Chest x-ray: report reviewed, image reviewed (Chest x-ray was reviewed and shows HD catheter in place, pulmonary vascular congestion with no evidence of obvious pneumonia or infiltrate) CT scan - abdomen: report reviewed, image reviewed Assessment and Plan 67-year-old male from [facility] admitted with acute respiratory failure, acute renal failure, acidosis requiring mechanical ventilation, ICU stay and hemodialysis now with: 1) Worsening leukocytosis with concern for sepsis: Respiratory status as well as symptomatology and radiology not concerning for a pneumonia. No concern for a urinary tract infection. Patient had blood cultures drawn, we will follow those. Exact etiology seems unclear at this point. It is however concerning that the patient has been having some abdominal distention and loose stools. The diarrhea has been thought to be multifactorial possibly from previous oral contrast use as well as recent GoLYTELY use. C. difficile definitely remains a concern. Hence, at this point would avoid systemic anti-microbials. Would place the patient on Flagyl 500 mg every 8 hours and discontinue the Zosyn. If patient continues to have diarrhea all throughout today even after stopping GoLYTELY, would recommend checking a C. difficile PCR tomorrow and if positive, would start the patient on oral vancomycin in addition to IV Flagyl. 2) Acute renal failure: Requiring hemodialysis. We'll use antibiotics. Nephrology following. 3) Acute anemia: No overt signs of bleeding. GI following. 4) Acute right lower extremity DVT: On anticoagulation with heparin. Recommendations: Discontinued Zosyn Increased Flagyl to 500 mg every 8 hours If patient continues to have diarrhea all throughout today even after stopping GoLYTELY, would recommend checking a C. difficile PCR tomorrow and if positive, would start the patient on oral vancomycin in addition to IV Flagyl If patient develops any hemodynamic instability, please call me STAT Follow up blood cultures Plan discussed with Dr. Veliz. MD [facility] C: [phone] O: [phone]
--- NOTE | 2017-12-29 11:51 | Gastroenterology Progress Note ---
<EDUARD RODRIGUEZ - Last Filed: 12/29/17 12:01> Assessment and Plan 1.iron deficiency anemia -H/H stable -no active signs of bleeding -etiology unclear -patient unable to tolerate colon prep overnight per nursing, now with worsening leukocytosis and ID consult pending -cancel EGD/colonoscopy for today and reschedule once medically stable -okay to resume diet and heparin drip for DVT -continue PPI and supportive care 2.abdominal distention -KUB shows ileus vs partial small bowel obstruction -SBFT shows contast passing all the way to the colon -surgery with no recommendations for surgical intervention -clinically, abdominal distention is slowly improving. Denies abd pain or N/V. Tolerating PO intake. -limit narcotics -encourage OOB -continue supportive care -will follow Subjective Date of service: 12/29/17 Principal diagnosis: Anemia Interval history: Patient w/o distress. Nursing reports patient unable to tolerate colon prep overnight. Now with worsening leukocytosis and ID consult pending. Denies abd pain, N/V, or sign of bleeding. Objective - Constitutional Vitals: Temp Pulse Resp BP Pulse Ox 98.6 F 90 20 131/76 99 12/29/17 07:26 12/29/17 09:43 12/29/17 10:00 12/29/17 09:32 12/29/17 10:00 General appearance: no acute distress, other (somnolent) - Respiratory Respiratory: bilateral: diminished - Cardiovascular Rhythm: regular Heart Sounds: Present: S1 & S2 - Gastrointestinal General gastrointestinal: Present: soft, non-tender, distended, normal bowel sounds - Labs CBC & Chem 7: 12/29/17 00:42 12/29/17 00:42 Labs: Laboratory Results - last 24 hr 12/28/17 12/28/17 12/28/17 16:09 16:34 21:45 WBC RBC Hgb Hct MCV MCH MCHC RDW Plt Count Add Manual Diff Total Counted Seg Neuts % (Manual) Band Neutrophils % Lymphocytes % (Manual) Reactive Lymphs % (Man) Monocytes % (Manual) Eosinophils % (Manual) Basophils % (Manual) Metamyelocytes % Myelocytes % Promyelocytes % Blast Cells % Nucleated RBC % Seg Neutrophils # Man Band Neutrophils # Lymphocytes # (Manual) Abs React Lymphs (Man) Monocytes # (Manual) Eosinophils # (Manual) Basophils # (Manual) Metamyelocytes # Myelocytes # Promyelocytes # Blast Cells # WBC Morphology Hypersegmented Neuts Hyposegmented Neuts Hypogranular Neuts Smudge Cells Toxic Granulation Toxic Vacuolation Dohle Bodies Pelger-Huet Anomaly Td Rods Platelet Estimate Clumped Platelets Plt Clumps, EDTA Large Platelets Giant Platelets Platelet Satelliting Plt Morphology Comment RBC Morphology Dimorphic RBCs Polychromasia Hypochromasia Poikilocytosis Anisocytosis Microcytosis Macrocytosis Spherocytes Pappenheimer Bodies Sickle Cells Target Cells Tear Drop Cells Ovalocytes Helmet Cells Araiza-Ogden Bodies Knifley Rings [place] Cells Bite Cells Crenated Cell Elliptocytes Acanthocytes (Spur) Rouleaux Hemoglobin C Crystals Schistocytes Malaria parasites [place] Bodies Hem Pathologist Commnt PT INR Heparin Anti-Xa Level 0.26 L Sodium Potassium Chloride Carbon Dioxide Anion Gap BUN Creatinine Estimated GFR BUN/Creatinine Ratio Glucose POC Glucose 140 H 165 H Calcium 12/28/17 12/29/17 12/29/17 23:18 00:42 00:42 WBC 21.3 H RBC 3.38 L Hgb 8.9 L Hct 27.3 L MCV 81 L MCH 27 L MCHC 33 RDW 19.4 H Plt Count 168 Add Manual Diff Complete Total Counted 100 Seg Neuts % (Manual) 93.0 H Band Neutrophils % 2.0 Lymphocytes % (Manual) 3.0 L Reactive Lymphs % (Man) 0 Monocytes % (Manual) 2.0 Eosinophils % (Manual) 0 Basophils % (Manual) 0 Metamyelocytes % 0 Myelocytes % 0 Promyelocytes % 0 Blast Cells % 0 Nucleated RBC % Not Reportable Seg Neutrophils # Man 19.8 H Band Neutrophils # 0.4 Lymphocytes # (Manual) 0.6 L Abs React Lymphs (Man) 0.0 Monocytes # (Manual) 0.4 Eosinophils # (Manual) 0.0 Basophils # (Manual) 0.0 Metamyelocytes # 0.0 Myelocytes # 0.0 Promyelocytes # 0.0 Blast Cells # 0.0 WBC Morphology Not Reportable Hypersegmented Neuts Not Reportable Hyposegmented Neuts Not Reportable Hypogranular Neuts Not Reportable Smudge Cells Not Reportable Toxic Granulation Not Reportable Toxic Vacuolation Not Reportable Dohle Bodies Not Reportable Pelger-Huet Anomaly Not Reportable Td Rods Not Reportable Platelet Estimate Consistent w auto Clumped Platelets Not Reportable Plt Clumps, EDTA Not Reportable Large Platelets Not Reportable Giant Platelets Not Reportable Platelet Satelliting Not Reportable Plt Morphology Comment Not Reportable RBC Morphology Not Reportable Dimorphic RBCs Not Reportable Polychromasia Not Reportable Hypochromasia 1+ Poikilocytosis Not Reportable Anisocytosis 1+ Microcytosis 1+ Macrocytosis Not Reportable Spherocytes Not Reportable Pappenheimer Bodies Not Reportable Sickle Cells Not Reportable Target Cells Not Reportable Tear Drop Cells Not Reportable Ovalocytes Not Reportable Helmet Cells Not Reportable Araiza-[place]gden Bodies Not Reportable Knifley Rings Not Reportable Rudolph Cells Not Reportable Bite Cells Not Reportable Crenated Cell Not Reportable Elliptocytes Not Reportable Acanthocytes (Spur) Not Reportable Rouleaux Not Reportable Hemoglobin C Crystals Not Reportable Schistocytes Not Reportable Malaria parasites Not Reportable [place] Bodies Not Reportable Hem Pathologist Commnt No PT INR Heparin Anti-Xa Level < 0.10 L Sodium 138 Potassium 3.1 L Chloride 98.2 Carbon Dioxide 23 Anion Gap 20 BUN 42 H Creatinine 6.0 H Estimated GFR 9 BUN/Creatinine Ratio 7 Glucose 141 H POC Glucose Calcium 8.2 L 12/29/17 12/29/17 05:48 07:15 WBC RBC Hgb Hct MCV MCH MCHC RDW Plt Count Add Manual Diff Total Counted Seg Neuts % (Manual) Band Neutrophils % Lymphocytes % (Manual) Reactive Lymphs % (Man) Monocytes % (Manual) Eosinophils % (Manual) Basophils % (Manual) Metamyelocytes % Myelocytes % Promyelocytes % Blast Cells % Nucleated RBC % Seg Neutrophils # Man Band Neutrophils # Lymphocytes # (Manual) Abs React Lymphs (Man) Monocytes # (Manual) Eosinophils # (Manual) Basophils # (Manual) Metamyelocytes # Myelocytes # Promyelocytes # Blast Cells # WBC Morphology Hypersegmented Neuts Hyposegmented Neuts Hypogranular Neuts Smudge Cells Toxic Granulation Toxic Vacuolation Dohle Bodies Pelger-Huet Anomaly Td Rods Platelet Estimate Clumped Platelets Plt Clumps, EDTA Large Platelets Giant Platelets Platelet Satelliting Plt Morphology Comment RBC Morphology Dimorphic RBCs Polychromasia Hypochromasia Poikilocytosis Anisocytosis Microcytosis Macrocytosis Spherocytes Pappenheimer Bodies Sickle Cells Target Cells Tear Drop Cells Ovalocytes Helmet Cells Araiza-Ogden Bodies Knifley Rings [place] Cells Bite Cells Crenated Cell Elliptocytes Acanthocytes (Spur) Rouleaux Hemoglobin C Crystals Schistocytes Malaria parasites [place] Bodies Hem Pathologist Commnt PT 15.3 H INR 1.15 H Heparin Anti-Xa Level < 0.10 L Sodium Potassium Chloride Carbon Dioxide Anion Gap BUN Creatinine Estimated GFR BUN/Creatinine Ratio Glucose POC Glucose 102 Calcium <LYSSA LEARY - Last Filed: 12/29/17 13:21> Assessment and Plan pt seen and examined. agree with note above. did not drink prep for procedures today. H/H stable. less interactive today compared to previous days. wbc increasing as well. will hold off on endoscopy for time being given recent changes. tolerating po and having bm's with improved abd exam. Objective - Constitutional Vitals: Temp Pulse Resp BP Pulse Ox 98.6 F 90 20 131/76 99 12/29/17 07:26 12/29/17 09:43 12/29/17 10:00 12/29/17 09:32 12/29/17 10:00 - Labs CBC & Chem 7: 12/29/17 00:42 12/29/17 00:42 Labs: Laboratory Results - last 24 hr 12/28/17 12/28/17 12/28/17 16:09 16:34 21:45 WBC RBC Hgb Hct MCV MCH MCHC RDW Plt Count Add Manual Diff Total Counted Seg Neuts % (Manual) Band Neutrophils % Lymphocytes % (Manual) Reactive Lymphs % (Man) Monocytes % (Manual) Eosinophils % (Manual) Basophils % (Manual) Metamyelocytes % Myelocytes % Promyelocytes % Blast Cells % Nucleated RBC % Seg Neutrophils # Man Band Neutrophils # Lymphocytes # (Manual) Abs React Lymphs (Man) Monocytes # (Manual) Eosinophils # (Manual) Basophils # (Manual) Metamyelocytes # Myelocytes # Promyelocytes # Blast Cells # WBC Morphology Hypersegmented Neuts Hyposegmented Neuts Hypogranular Neuts Smudge Cells Toxic Granulation Toxic Vacuolation Dohle Bodies Pelger-Huet Anomaly Td Rods Platelet Estimate Clumped Platelets Plt Clumps, EDTA Large Platelets Giant Platelets Platelet Satelliting Plt Morphology Comment RBC Morphology Dimorphic RBCs Polychromasia Hypochromasia Poikilocytosis Anisocytosis Microcytosis Macrocytosis Spherocytes Pappenheimer Bodies Sickle Cells Target Cells Tear Drop Cells Ovalocytes Helmet Cells Araiza-Ogden Bodies Knifley Rings Rudolph Cells Bite Cells Crenated Cell Elliptocytes Acanthocytes (Spur) Rouleaux Hemoglobin C Crystals Schistocytes Malaria parasites [place] Bodies Hem Pathologist Commnt PT INR Heparin Anti-Xa Level 0.26 L Sodium Potassium Chloride Carbon Dioxide Anion Gap BUN Creatinine Estimated GFR BUN/Creatinine Ratio Glucose POC Glucose 140 H 165 H Calcium 12/28/17 12/29/17 12/29/17 23:18 00:42 00:42 WBC 21.3 H RBC 3.38 L Hgb 8.9 L Hct 27.3 L MCV 81 L MCH 27 L MCHC 33 RDW 19.4 H Plt Count 168 Add Manual Diff Complete Total Counted 100 Seg Neuts % (Manual) 93.0 H Band Neutrophils % 2.0 Lymphocytes % (Manual) 3.0 L Reactive Lymphs % (Man) 0 Monocytes % (Manual) 2.0 Eosinophils % (Manual) 0 Basophils % (Manual) 0 Metamyelocytes % 0 Myelocytes % 0 Promyelocytes % 0 Blast Cells % 0 Nucleated RBC % Not Reportable Seg Neutrophils # Man 19.8 H Band Neutrophils # 0.4 Lymphocytes # (Manual) 0.6 L Abs React Lymphs (Man) 0.0 Monocytes # (Manual) 0.4 Eosinophils # (Manual) 0.0 Basophils # (Manual) 0.0 Metamyelocytes # 0.0 Myelocytes # 0.0 Promyelocytes # 0.0 Blast Cells # 0.0 WBC Morphology Not Reportable Hypersegmented Neuts Not Reportable Hyposegmented Neuts Not Reportable Hypogranular Neuts Not Reportable Smudge Cells Not Reportable Toxic Granulation Not Reportable Toxic Vacuolation Not Reportable Dohle Bodies Not Reportable Pelger-Huet Anomaly Not Reportable Td Rods Not Reportable Platelet Estimate Consistent w auto Clumped Platelets Not Reportable Plt Clumps, EDTA Not Reportable Large Platelets Not Reportable Giant Platelets Not Reportable Platelet Satelliting Not Reportable Plt Morphology Comment Not Reportable RBC Morphology Not Reportable Dimorphic RBCs Not Reportable Polychromasia Not Reportable Hypochromasia 1+ Poikilocytosis Not Reportable Anisocytosis 1+ Microcytosis 1+ Macrocytosis Not Reportable Spherocytes Not Reportable Pappenheimer Bodies Not Reportable Sickle Cells Not Reportable Target Cells Not Reportable Tear Drop Cells Not Reportable Ovalocytes Not Reportable Helmet Cells Not Reportable Araiza-Ogden Bodies Not Reportable Knifley Rings Not Reportable Rudolph Cells Not Reportable Bite Cells Not Reportable Crenated Cell Not Reportable Elliptocytes Not Reportable Acanthocytes (Spur) Not Reportable Rouleaux Not Reportable Hemoglobin C Crystals Not Reportable Schistocytes Not Reportable Malaria parasites Not Reportable [place] Bodies Not Reportable Hem Pathologist Commnt No PT INR Heparin Anti-Xa Level < 0.10 L Sodium 138 Potassium 3.1 L Chloride 98.2 Carbon Dioxide 23 Anion Gap 20 BUN 42 H Creatinine 6.0 H Estimated GFR 9 BUN/Creatinine Ratio 7 Glucose 141 H POC Glucose Calcium 8.2 L 12/29/17 12/29/17 12/29/17 05:48 07:15 11:51 WBC RBC Hgb Hct MCV MCH MCHC RDW Plt Count Add Manual Diff Total Counted Seg Neuts % (Manual) Band Neutrophils % Lymphocytes % (Manual) Reactive Lymphs % (Man) Monocytes % (Manual) Eosinophils % (Manual) Basophils % (Manual) Metamyelocytes % Myelocytes % Promyelocytes % Blast Cells % Nucleated RBC % Seg Neutrophils # Man Band Neutrophils # Lymphocytes # (Manual) Abs React Lymphs (Man) Monocytes # (Manual) Eosinophils # (Manual) Basophils # (Manual) Metamyelocytes # Myelocytes # Promyelocytes # Blast Cells # WBC Morphology Hypersegmented Neuts Hyposegmented Neuts Hypogranular Neuts Smudge Cells Toxic Granulation Toxic Vacuolation Dohle Bodies Pelger-Huet Anomaly Td Rods Platelet Estimate Clumped Platelets Plt Clumps, EDTA Large Platelets Giant Platelets Platelet Satelliting Plt Morphology Comment RBC Morphology Dimorphic RBCs Polychromasia Hypochromasia Poikilocytosis Anisocytosis Microcytosis Macrocytosis Spherocytes Pappenheimer Bodies Sickle Cells Target Cells Tear Drop Cells Ovalocytes Helmet Cells Araiza-[place]gden Bodies Knifley Rings Rudolph Cells Bite Cells Crenated Cell Elliptocytes Acanthocytes (Spur) Rouleaux Hemoglobin C Crystals Schistocytes Malaria parasites [place] Bodies Hem Pathologist Commnt PT 15.3 H INR 1.15 H Heparin Anti-Xa Level < 0.10 L Sodium Potassium Chloride Carbon Dioxide Anion Gap BUN Creatinine Estimated GFR BUN/Creatinine Ratio Glucose POC Glucose 102 105 Calcium
[2017-12-29] MEDS ORDERED: HEPARIN 10,000 UNITS/10 ML IV ONE (12:00)
[2017-12-29] MEDS: FLAGYL 500 MG/100 ML 500 MG/100 ML BAG IV SCH (13:36)
[2017-12-30] MEDS: COREG PO SCH ×3 (00:34→22:00)
[2017-12-30] MEDS: FLAGYL 500 MG/100 ML 500 MG/100 ML BAG IV SCH ×4 (00:36→21:58)
[2017-12-30] MEDS: APRESOLINE IV PRN (00:40)
[2017-12-30 02:09] LABS: Basophils # (Auto) 0.1 K/mm3 (0.0-0.1); Basophils % (Auto) 0.5 % (0.0-1.8); Eosinophils # (Auto) 0.3 K/mm3 (0.0-0.4); Eosinophils % (Auto) 1.4 % (0.0-4.3); Hematocrit 29.3 % (35.5-45.6); Hemoglobin 9.4 gm/dl (11.8-15.2); Lymphocytes # (Auto) 1.5 K/mm3 (1.2-5.4); Lymphocytes % (Auto) 7.6 % (13.4-35.0); Mean Corpuscular HGB Conc 32 % (32-34); Mean Corpuscular Hemoglobin 26 pg (28-32); Mean Corpuscular Volume 82 fl (84-94); Monocytes # (Auto) 1.4 K/mm3 (0.0-0.8); Monocytes % (Auto) 7.2 % (0.0-7.3); Platelet Count 164 K/mm3 (140-440); Red Blood Count 3.57 M/mm3 (3.65-5.03); Red Cell Distribution Width 19.5 % (13.2-15.2)
[2017-12-30 02:29] LABS: Albumin 3.4 g/dL (3.9-5); Calcium 8.4 mg/dL (8.4-10.2)
[2017-12-30] MEDS: HEPARIN/ 0.45% NACL-25,000 UNIT/500 ML 25,000 UNIT/500 ML BAG IV SCH ×2 (02:32→23:40)
--- NOTE | 2017-12-30 08:20 | Progress Note ---
Assessment and Plan Assessment and plan: --Hypokalemia; replace per protocol monitor levels Sepsis likely from PNA, resolved -treated with IV abx, -blood cultures negative so far Bilateral pneumonia -treated with abx -blood and sputum culture neg Ileus -No surgical intervention per surgery team -We'll monitor clinically Acute Right LE DVT -cont on heparin drip - monitor h and h Acute respiratory failure with hypoxia -likely due to pulmonary edema from renal failure - required intubation with MV - Off steroids - ABG improved - pulmonology following - s/p extubation on 12/21/17 - cont nebs and supplemental O2 BALDO 2/2 acute on chronic cardio renal syndrome, ischemic ATN in the setting of severe anemia and sepsis -H/O CKD suspected -on HD since admission -Neprology following - s/p perm cath placed Severe anemia, probably sec to CKD/ESRD -s/p blood transfusion with 4 units of PRBC -s/p CT abdomen and pelvis to assess for acute bleed, but no active source per GI -stable H&H post transfusion -Small bowel follow through completed, report pending Acute exacerbation of CHF (congestive heart failure), suspected -2d ECHO report showed EF 40-45% -cont volume removal by increased Ultrafiltration Elevated troponin probably secondary to demand ischemia -On medical management -Cardiology following HTN -Controlled on meds. GI prophylaxis on Protonix Disposition: For discharge when medically stable History Interval history: Patient seen and examined medical records reviewed No new events reported by the nursing staff Patient has no new complaints, vital signs noted Alert and awake responding to simple questions appropriately Hospitalist Physical - Constitutional Vitals: Temp Pulse Resp BP Pulse Ox 98.2 F 109 H 20 144/72 98 12/30/17 01:49 12/30/17 01:49 12/30/17 01:49 12/30/17 01:49 12/30/17 01:49 General appearance: Present: no acute distress, well-nourished, other ( minimally communicative) - EENT Eyes: Present: PERRL, EOM intact - Neck Neck: Present: supple, normal ROM - Respiratory Respiratory effort: normal Respiratory: bilateral: diminished, negative: rales, rhonchi, wheezing - Cardiovascular Rhythm: regular Heart Sounds: Present: S1 & S2 - Extremities Extremities: no ischemia, No edema - Abdominal General gastrointestinal: soft, non-tender, non-distended, normal bowel sounds - Integumentary Integumentary: Present: clear, warm - Psychiatric Psychiatric: appropriate mood/affect, cooperative - Neurologic Neurologic: moves all extremities Results - Labs CBC & Chem 7: 12/30/17 01:27 12/30/17 01:27 Labs: Laboratory Last Values WBC 19.2 K/mm3 (4.5-11.0) H 12/30/17 01:27 RBC 3.57 M/mm3 (3.65-5.03) L 12/30/17 01:27 Hgb 9.4 gm/dl (11.8-15.2) L 12/30/17 01:27 Hct 29.3 % (35.5-45.6) L 12/30/17 01:27 MCV 82 fl (84-94) L 12/30/17 01:27 MCH 26 pg (28-32) L 12/30/17 01: MCHC 32 % (32-34) 12/30/17 01:27 RDW 19.5 % (13.2-15.2) H 12/30/17 01:27 Plt Count 164 K/mm3 (140-440) 12/30/17 01:27 Lymph % (Auto) 7.6 % (13.4-35.0) L 12/30/17 01:27 [place] % (Auto) 7.2 % (0.0-7.3) 12/30/17 01:27 Eos % (Auto) 1.4 % (0.0-4.3) 12/30/17 01:27 Baso % (Auto) 0.5 % (0.0-1.8) 12/30/17 01:27 Lymph # 1.5 K/mm3 (1.2-5.4) 12/30/17 01:27 [place] # 1.4 K/mm3 (0.0-0.8) H 12/30/17 01:27 Eos # 0.3 K/mm3 (0.0-0.4) 12/30/17 01:27 Baso # 0.1 K/mm3 (0.0-0.1) 12/30/17 01:27 Add Manual Diff Complete 12/29/17 00:42 Total Counted 100 12/29/17 00:42 Seg Neutrophils % 83.3 % (40.0-70.0) H 12/30/17 01:27 Seg Neuts % (Manual) 93.0 % (40.0-70.0) H 12/29/17 00:42 Band Neutrophils % 2.0 % 12/29/17 00:42 Lymphocytes % (Manual) 3.0 % (13.4-35.0) L 12/29/17 00:42 Reactive Lymphs % (Man) 0 % 12/29/17 00:42 Monocytes % (Manual) 2.0 % (0.0-7.3) 12/29/17 00:42 Eosinophils % (Manual) 0 % (0.0-4.3) 12/29/17 00:42 Basophils % (Manual) 0 % (0.0-1.8) 12/29/17 00:42 Metamyelocytes % 0 % 12/29/17 00:42 Myelocytes % 0 % 12/29/17 00:42 Promyelocytes % 0 % 12/29/17 00:42 Blast Cells % 0 % 12/29/17 00:42 Nucleated RBC % Not Reportable 12/29/17 00:42 Seg Neutrophils # 16.0 K/mm3 (1.8-7.7) H 12/30/17 01:27 Seg Neutrophils # Man 19.8 K/mm3 (1.8-7.7) H 12/29/17 00:42 Band Neutrophils # 0.4 K/mm3 12/29/17 00:42 Lymphocytes # (Manual) 0.6 K/mm3 (1.2-5.4) L 12/29/17 00:42 Abs React Lymphs (Man) 0.0 K/mm3 12/29/17 00:42 Monocytes # (Manual) 0.4 K/mm3 (0.0-0.8) 12/29/17 00:42 Eosinophils # (Manual) 0.0 K/mm3 (0.0-0.4) 12/29/17 00:42 Basophils # (Manual) 0.0 K/mm3 (0.0-0.1) 12/29/17 00:42 Metamyelocytes # 0.0 K/mm3 12/29/17 00:42 Myelocytes # 0.0 K/mm3 12/29/17 00:42 Promyelocytes # 0.0 K/mm3 12/29/17 00:42 Blast Cells # 0.0 K/mm3 12/29/17 00:42 WBC Morphology Not Reportable 12/29/17 00:42 Hypersegmented Neuts Not Reportable 12/29/17 00:42 Hyposegmented Neuts Not Reportable 12/29/17 00:42 Hypogranular Neuts Not Reportable 12/29/17 00:42 Smudge Cells Not Reportable 12/29/17 00:42 Toxic Granulation Not Reportable 12/29/17 00:42 Toxic Vacuolation Not Reportable 12/29/17 00:42 Dohle Bodies Not Reportable 12/29/17 00:42 Pelger-Huet Anomaly Not Reportable 12/29/17 00:42 Td Rods Not Reportable 12/29/17 00:42 Platelet Estimate Consistent w auto 12/29/17 00:42 Clumped Platelets Not Reportable 12/29/17 00:42 Plt Clumps, EDTA Not Reportable 12/29/17 00:42 Large Platelets Not Reportable 12/29/17 00:42 Giant Platelets Not Reportable 12/29/17 00:42 Platelet Satelliting Not Reportable 12/29/17 00:42 Plt Morphology Comment Not Reportable 12/29/17 00:42 RBC Morphology Not Reportable 12/29/17 00:42 Dimorphic RBCs Not Reportable 12/29/17 00:42 Polychromasia Not Reportable 12/29/17 00:42 Hypochromasia 1+ 12/29/17 00:42 Poikilocytosis Not Reportable 12/29/17 00:42 Anisocytosis 1+ 12/29/17 00:42 Microcytosis 1+ 12/29/17 00:42 Macrocytosis Not Reportable 12/29/17 00:42 Spherocytes Not Reportable 12/29/17 00:42 Pappenheimer Bodies Not Reportable 12/29/17 00:42 Sickle Cells Not Reportable 12/29/17 00:42 Target Cells Not Reportable 12/29/17 00:42 Tear Drop Cells Not Reportable 12/29/17 00:42 Ovalocytes Not Reportable 12/29/17 00:42 Helmet Cells Not Reportable 12/29/17 00:42 Aariza-Secretary Bodies Not Reportable 12/29/17 00:42 [place] Rings Not Reportable 12/29/17 00:42 [place] Cells Not Reportable 12/29/17 00:42 Bite Cells Not Reportable 12/29/17 00:42 Crenated Cell Not Reportable 12/29/17 00:42 Elliptocytes Not Reportable 12/29/17 00:42 Acanthocytes (Spur) Not Reportable 12/29/17 00:42 Rouleaux Not Reportable 12/29/17 00:42 Hemoglobin C Crystals Not Reportable 12/29/17 00:42 Schistocytes Not Reportable 12/29/17 00:42 Malaria parasites Not Reportable 12/29/17 00:42 [place] Bodies Not Reportable 12/29/17 00:42 Hem Pathologist Commnt No 12/29/17 00:42 PT 15.3 Sec. (12.2-14.9) H 12/29/17 05:48 INR 1.15 (0.87-1.13) H 12/29/17 05:48 APTT 27.9 Sec. (24.2-36.6) 12/19/17 19:17 D-Dimer 1108.83 ng/mlDDU (0-234) H 12/15/17 17:16 Heparin Anti-Xa Level 0.60 U.I./ml (0.3-0.7) 12/29/17 16:43 POC ABG pH 7.446 (7.35-7.45) 12/21/17 03:44 POC ABG pCO2 27.6 (35-45) L 12/21/17 03:44 POC ABG pO2 90 (80-105) 12/21/17 03:44 POC ABG HCO3 19.0 12/21/17 03:44 POC ABG Total CO2 20 12/21/17 03:44 POC ABG O2 Sat 97 12/21/17 03:44 POC ABG Base Excess -5 12/21/17 03:44 VBG pH 7.204 (7.320-7.420) L 12/15/17 18:01 FiO2 30 % 12/21/17 03:44 Sodium 138 mmol/L (137-145) 12/30/17 01:27 Potassium 3.0 mmol/L (3.6-5.0) L 12/30/17 01:27 Chloride 95.0 mmol/L (98-107) L 12/30/17 01:27 Carbon Dioxide 20 mmol/L (22-30) L 12/30/17 01:27 Anion Gap 26 mmol/L 12/30/17 01:27 BUN 59 mg/dL (9-20) H 12/30/17 01:27 Creatinine 8.0 mg/dL (0.8-1.5) H 12/30/17 01:27 Estimated GFR 7 ml/min 12/30/17 01:27 BUN/Creatinine Ratio 7 % 12/30/17 01:27 Glucose 95 mg/dL (75-100) 12/30/17 01:27 POC Glucose 96 (70-105) 12/30/17 07:39 Hemoglobin A1c < 4.2 % (4-6) 12/15/17 17:16 Lactic Acid 1.40 mmol/L (0.7-2.0) 12/15/17 17:16 Calcium 8.4 mg/dL (8.4-10.2) 12/30/17 01:27 Phosphorus 7.50 mg/dL (2.5-4.5) H 12/28/17 02:42 Iron 37 ug/dL (49-181) L 12/16/17 00:24 TIBC 416 mcg/dL (250-450) 12/16/17 00:24 Ferritin 16.1 ng/mL (13.0-400.0) 12/16/17 00:24 Total Bilirubin 0.20 mg/dL (0.1-1.2) 12/30/17 01:27 AST 20 units/L (5-40) 12/30/17 01:27 ALT 15 units/L (7-56) 12/30/17 01:27 Alkaline Phosphatase 77 units/L (35-129) 12/30/17 01:27 Total Creatine Kinase 736 units/L (55-170) H 12/15/17 17:16 CK-MB (CK-2) 7.7 ng/mL (0.0-4.0) H 12/15/17 17:16 CK-MB (CK-2) Rel Index 1.0 (0-4) 12/15/17 17:16 Troponin T 0.067 ng/mL (0.00-0.029) H 12/15/17 17:16 NT-Pro-B Natriuret Pep 73797 pg/mL (0-900) H 12/15/17 17:16 Total Protein 7.0 g/dL (6.3-8.2) 12/30/17 01:27 Albumin 3.4 g/dL (3.9-5) L 12/30/17 01:27 Albumin/Globulin Ratio 0.9 % 12/30/17 01:27 Triglycerides 440 mg/dL (2-149) H 12/19/17 05:10 Cholesterol 163 mg/dL (50-199) 12/15/17 17:16 LDL Cholesterol Direct 102 mg/dL (50-130) 12/15/17 17:16 HDL Cholesterol 29 mg/dL (40-59) L 12/15/17 17:16 Cholesterol/HDL Ratio 5.62 % 12/15/17 17:16 Vitamin B12 221.6 pg/mL (211-911) 12/16/17 00:24 Folate 14.63 ng/mL (7.3-26.0) 12/16/17 00:24 Urine Color Yellow (Yellow) 12/16/17 12:05 Urine Turbidity Cloudy (Clear) 12/16/17 12:05 Urine pH 5.0 (5.0-7.0) 12/16/17 12:05 Ur Specific [place] 1.012 (1.003-1.030) 12/16/17 12:05 Urine Protein >500 mg/dL (Negative) 12/16/17 12:05 Urine Glucose (UA) 50 mg/dL (Negative) 12/16/17 12:05 Urine Ketones Neg mg/dL (Negative) 12/16/17 12:05 Urine Blood Mod (Negative) 12/16/17 12:05 Urine Nitrite Neg (Negative) 12/16/17 12:05 Urine Bilirubin Neg (Negative) 12/16/17 12:05 Urine Urobilinogen < 2.0 mg/dL (<2.0) 12/16/17 12:05 Ur Leukocyte Esterase Lg (Negative) 12/16/17 12:05 Urine WBC (Auto) > 182.0 /HPF (0.0-6.0) H 12/16/17 12:05 Urine RBC (Auto) 30.0 /HPF (0.0-6.0) 12/16/17 12:05 U Epithel Cells (Auto) 1.0 /HPF (0-13.0) 12/16/17 12:05 Urine Bacteria (Auto) 1+ /HPF (Negative) 12/16/17 12:05 Urine WBC Clumps 3+ /HPF 12/16/17 12:05 Urine Mucus 1+ /HPF 12/16/17 12:05 Urine Creatinine 81.7 mg/dL (0.1-20.0) H 12/16/17 12:05 Urine Sodium 62 mmol/L 12/16/17 12:05 Urine Total Protein 493 mg/dL (5-11.8) H 12/16/17 12:05 Urine Opiates Screen Presumptive negative 12/16/17 12:05 Urine Methadone Screen Presumptive negative 12/16/17 12:05 Ur Barbiturates Screen Presumptive negative 12/16/17 12:05 Ur Phencyclidine Scrn Presumptive negative 12/16/17 12:05 Ur Amphetamines Screen Presumptive negative 12/16/17 12:05 U Benzodiazepines Scrn Presumptive positive 12/16/17 12:05 Urine Cocaine Screen Presumptive negative 12/16/17 12:05 U Marijuana (THC) Screen Presumptive negative 12/16/17 12:05 Drugs of Abuse Note Disclamer 12/16/17 12:05 Hepatitis A IgM Ab Nonreactive (NonReactive) 12/16/17 04:47 Hep Bs Antigen Non-reactive (Negative) 12/16/17 04:47 Hep B Core IgM Ab Non-reactive (NonReactive) 12/16/17 04:47 Hepatitis C Antibody Non-reactive (NonReactive) 12/16/17 04:47 Blood Type A POSITIVE 12/15/17 17:45 Antibody Screen Negative 12/15/17 17:45 Crossmatch See Detail 12/15/17 17:45
[2017-12-30] MEDS: K-DUR PO SCH ×3 (09:19→15:04)
[2017-12-30] MEDS: DUONEB *Not for PRN Use IH SCH ×7 (09:25→20:39)
--- NOTE | 2017-12-30 10:20 | Progress Note ---
Assessment and Plan - Patient Problems (1) Acute kidney injury superimposed on chronic kidney disease Current Visit: Yes Status: Acute Plan to address problem: Patient presumably has chronic kidney disease given the echogenic kidneys and nephrotic range proteinuria. Question chronic Glomerulonephritis. Acute kidney injury probably acute tubular necrosis versus acute on chronic cardiorenal syndrome. Patient tolerating dialysis with improvement in volume status. S/p permacath placement. Arrangements for outpatient dialysis ongoing. Hemodialysis on a Monday, and Monday schedule. (2) Acute heart failure Current Visit: Yes Status: Acute Plan to address problem: Volume status improved with dialysis. Ejection fraction 40-45% on 2-D echo (3) Hypertensive chronic kidney disease with stage 5 chronic kidney disease or end stage renal disease Current Visit: Yes Status: Acute Plan to address problem: Follow-up blood pressure on current medications (4) Acidosis, metabolic Current Visit: Yes Status: Acute Plan to address problem: Improving with dialysis (5) Severe anemia Current Visit: Yes Status: Chronic Plan to address problem: Hemoglobin improved with packed Red blood cell transfusions. Follow-up hemoglobin (6) Acute respiratory failure with hypoxia Current Visit: Yes Status: Acute Plan to address problem: Status post extubation. Continue monitoring by pulmonary Subjective Date of service: 12/30/17 Principal diagnosis: Anemia Interval history: Patient seen lying in bed. He has no complaints. Denies pain. Admits to nausea but no vomiting. Denies shortness of breath. Receiving a breathing treatment. Objective - Exam Narrative Exam: Elderly male lying in bed on oxygen via Ventimask HEENT: NCAT, pink oral mucous membranes Neck: Supple, no venous distention CVS: S1S2 RRR with no murmur, rub or gallop Chest: Clear to auscultation Abdomen: Protuberant, soft, nontender, no organomegaly, bowel sounds are present Extremities: No edema Skin warm and dry, no rash Neuro: Awake, looks dull, moving extremities - Vital Signs Vital signs: Vital Signs - 12hr 12/29/17 12/30/17 12/30/17 22:30 00:34 00:40 Temperature Pulse Rate 94 H 94 H 94 H Respiratory Rate Blood Pressure 136/74 136/75 136/75 O2 Sat by Pulse Oximetry 12/30/17 12/30/17 12/30/17 01:49 08:00 08:29 Temperature 98.2 F 98.8 F Pulse Rate 109 H 96 H 96 H Respiratory 20 20 Rate Blood Pressure 144/72 140/77 O2 Sat by Pulse 98 99 Oximetry - Lab 12/30/17 01:27 12/30/17 01:27 Most recent lab results Calcium 8.4 mg/dL (8.4-10.2) 12/30/17 01:27 Phosphorus 7.50 mg/dL (2.5-4.5) H 12/28/17 02:42 Urine Creatinine 81.7 mg/dL (0.1-20.0) H 12/16/17 12:05 Urine Sodium 62 mmol/L 12/16/17 12:05 Urine Total Protein 493 mg/dL (5-11.8) H 12/16/17 12:05
--- NOTE | 2017-12-30 11:09 | Progress Note ---
Assessment and Plan 1. Renal failure on hemodialysis 2. Nonischemic cardiomyopathy LVEF 40-45% 3. Essential hypertension 4. Anemia Plan. Cardiac-barcenas stable continue present management. Subjective Date of service: 12/30/17 Principal diagnosis: Anemia Interval history: No cardiac symptoms Objective Vital Signs Temp Pulse Resp BP Pulse Ox 12/30/17 10:00 22 94 12/30/17 08:29 98.8 F 96 H 20 140/77 99 12/30/17 08:00 96 H 12/30/17 01:49 98.2 F 109 H 20 144/72 98 12/30/17 00:40 94 H 136/75 12/30/17 00:34 94 H 136/75 12/29/17 22:30 94 H 136/74 12/29/17 20:30 97.9 F 18 136/75 12/29/17 13:36 94 H 104/53 12/29/17 13:27 98.2 F 69 20 104/53 94 - Physical Examination General: No Apparent Distress HEENT: Positive: PERRL Neck: Positive: trachea midline Cardiac: Positive: Regular Rate, S1/S2, PMI, Laterally Displaced. Negative: S3 , S4 Lungs: Positive: clear to auscultation, No Wheeze, Rales, Rhonchi Neuro: Positive: Grossly Intact Abdomen: Positive: Distended Extremities: Absent: edema - Labs and Meds Cardiac Enzymes 12/30/17 Range/Units 01:27 AST 20 (5-40) units/L CBC 12/30/17 Range/Units 01:27 WBC 19.2 H (4.5-11.0) K/mm3 RBC 3.57 L (3.65-5.03) M/mm3 Hgb 9.4 L (11.8-15.2) gm/dl Hct 29.3 L (35.5-45.6) % Plt Count 164 (140-440) K/mm3 Lymph # 1.5 (1.2-5.4) K/mm3 [place] # 1.4 H (0.0-0.8) K/mm3 Eos # 0.3 (0.0-0.4) K/mm3 Baso # 0.1 (0.0-0.1) K/mm3 Comprehensive Metabolic Panel 12/30/17 Range/Units 01:27 Sodium 138 (137-145) mmol/L Potassium 3.0 L (3.6-5.0) mmol/L Chloride 95.0 L (98-107) mmol/L Carbon Dioxide 20 L (22-30) mmol/L BUN 59 H (9-20) mg/dL Creatinine 8.0 H (0.8-1.5) mg/dL Glucose 95 (75-100) mg/dL Calcium 8.4 (8.4-10.2) mg/dL AST 20 (5-40) units/L ALT 15 (7-56) units/L Alkaline Phosphatase 77 (35-129) units/L Total Protein 7.0 (6.3-8.2) g/dL Albumin 3.4 L (3.9-5) g/dL - Imaging and Cardiology EKG: report reviewed, image reviewed - Allied health notes Allied health notes reviewed: nursing
[2017-12-30] MEDS ORDERED: TYLENOL PO ONE (12:45)
[2017-12-30] MEDS: LOPRESSOR IV SCH ×3 (14:42→20:05)
--- NOTE | 2017-12-30 20:56 | Consultation ---
History of Present Illness - Reason for Consult Consult date: 12/30/17 Reason for consult: Initial Psychiatric Evaluation - Chief Complaint Chief complaint: " I'm good" - History of Present Psychiatric Illness Patient is a 67 year-old [facility] emergency room with complaints of shortness of breath and cough that started 2 weeks ago. Psychiatry was consulted due to suspected depression. Patient has no PPHx. He states, " I'm here because I was sick." During the assessment patient is easily irritable. He verbalizes " who wouldn't be a little down if they were not sick." He denies SI/HI's, A/VH's, and delusions. Current Psychiatric Medications: Patient denies. Past Psychiatric History: Patient denies psychiatric diagnosis; no inpatient psychiatric hospitalizations; no outpatient psychiatrist; no previous suicide attempt. Past Psychiatric Medication Trials: Patient denies. History of Trauma/Abuse: Patient denies. Drug/Alcohol Abuse: Patient denies drug/alcohol abuse. Social History: School in [place]; x 5 years; in [place]; Retired; 2 children ( 1 son, 1 daughter); Lives alone. Family History: Patient denies family history of psychiatric illness and substance abuse. Medications and Allergies Allergies Allergy/AdvReac Type Severity Reaction Status Date / Time No Known Allergies Allergy Verified 12/15/17 17:22 Home Medications Medication Instructions Recorded Confirmed Last Taken Type Labetalol [Normodyne] 300 mg PO TID 12/27/17 12/27/17 Unknown History Telmisartan [Micardis] 80 mg PO DAILY 12/27/17 12/27/17 Unknown History Valsartan 320 mg PO DAILY 12/27/17 12/27/17 Unknown History Active Meds: Active Medications Albuterol (Proventil) 2.5 mg IH Q4HRT PRN PRN Reason: Shortness Of Breath Last Admin: 12/16/17 01:10 Dose: 2.5 mg Albuterol/Ipratropium (Duoneb *Not For Prn Use*) 1 ampul IH TIDRT ON LICENSE OF [facility] Last Admin: 12/30/17 20:39 Dose: 1 ampul Carvedilol (Coreg) 6.25 mg PO BID ON LICENSE OF [facility] Last Admin: 12/30/17 09:19 Dose: 6.25 mg Haloperidol Lactate (Haldol) 5 mg IV Q6H PRN PRN Reason: Agitation Last Admin: 12/24/17 00:01 Dose: 5 mg Hydralazine HCl (Apresoline) 20 mg IV Q6HR PRN PRN Reason: Hypertension Last Admin: 12/30/17 00:40 Dose: 20 mg Heparin Sodium/Sodium Chloride (Heparin/ 0.45% Nacl-25,000 Unit/500 Ml) 25,000 unit in 500 mls @ 23 mls/hr IV TITR NIYA; Protocol Last Admin: 12/30/17 02:32 Dose: 1,267 units/hr, 25.34 mls/hr Sodium Chloride (Nacl 0.9%) 100 mls @ 999 mls/hr IV MICHAELA PRN PRN Reason: Hypotension Metronidazole (Flagyl 500 Mg/100 Ml) 500 mg in 100 mls @ 100 mls/hr IV Q8HR NIYA ; Protocol Last Admin: 12/30/17 14:41 Dose: 100 mls/hr Metoprolol Tartrate (Lopressor) 5 mg IV Q8H NIYA Last Admin: 12/30/17 19:09 Dose: Not Given Ondansetron HCl (Zofran) 4 mg IV Q8H PRN PRN Reason: Nausea And Vomiting Mental Status Exam - Vital signs Last Vital Signs Temp 98.4 F 12/30/17 14:36 Pulse 93 H 12/30/17 20:20 Resp 20 12/30/17 20:20 BP 124/73 12/30/17 14:36 Pulse Ox 99 12/30/17 20:36 - Exam Narrative exam: Mental Status Exam General Appearance: Causally Dressed-hospital gown, poorly groomed Eye Contact: Intermittent Orientation: Alert and oriented x 3 (person, place, and time) Attitude/Behavior:Evasive, guarded Sensorium: Distracted Psychomotor & Musculoskeletal Activity: Laying in bed Mood: " good"; irritable Affect: Incongruent Speech/Language: Normal rate and tone Thought Processes: Circumstantial Thought Content: Impoverished. Patient denies delusions Perception: Patient denies A/V/T hallucinations Concentration/Attention: Impaired Suicidal Ideations/Plan: Patient denies. Homicidal Ideations/Plan: Patient denies. Judgment: Variable Insight: Variable Results Result Diagrams: 12/30/17 01:27 12/30/17 01:27 Abnormal lab results 12/30/17 12/30/17 12/30/17 Range/Units 01:27 01:27 12:50 WBC 19.2 H (4.5-11.0) K/mm3 RBC 3.57 L (3.65-5.03) M/mm3 Hgb 9.4 L (11.8-15.2) gm/dl Hct 29.3 L (35.5-45.6) % MCV 82 L (84-94) fl MCH 26 L (28-32) pg RDW 19.5 H (13.2-15.2) % Lymph % (Auto) 7.6 L (13.4-35.0) % [place] # 1.4 H (0.0-0.8) K/mm3 Seg Neutrophils % 83.3 H (40.0-70.0) % Seg Neutrophils # 16.0 H (1.8-7.7) K/mm3 Potassium 3.0 L (3.6-5.0) mmol/L Chloride 95.0 L (98-107) mmol/L Carbon Dioxide 20 L (22-30) mmol/L BUN 59 H (9-20) mg/dL Creatinine 8.0 H (0.8-1.5) mg/dL POC Glucose (70-105) Albumin 3.4 L (3.9-5) g/dL Acetaminophen < 5.0 L (10.0-30.0) ug/mL 12/30/17 Range/Units 16:56 WBC (4.5-11.0) K/mm3 RBC (3.65-5.03) M/mm3 Hgb (11.8-15.2) gm/dl Hct (35.5-45.6) % MCV (84-94) fl MCH (28-32) pg RDW (13.2-15.2) % Lymph % (Auto) (13.4-35.0) % [place] # (0.0-0.8) K/mm3 Seg Neutrophils % (40.0-70.0) % Seg Neutrophils # (1.8-7.7) K/mm3 Potassium (3.6-5.0) mmol/L Chloride (98-107) mmol/L Carbon Dioxide (22-30) mmol/L BUN (9-20) mg/dL Creatinine (0.8-1.5) mg/dL POC Glucose 114 H (70-105) Albumin (3.9-5) g/dL Acetaminophen (10.0-30.0) ug/mL All other labs normal. Assessment and Plan Assessment and plan: Impression: Mood Disorder Unspecified. No PPHx. Today the patient is cooperative but very irritable during the assessment. He presents evasive and guarded. Patient denies SI/HI's, A/VH's, and delusions. DDx: Schizophrenia Recommendations/Plan: 1. Will reassess in 24 hours. 2. Will attempt to gain collateral to determine proper disposition 3. Discussed the benefits/risks of an antidepressant. Patient refuses. Will attempt to discuss again on 12/31/17.
[2017-12-31] MEDS: LOPRESSOR IV SCH ×3 (04:29→20:49)
[2017-12-31] MEDS: FLAGYL 500 MG/100 ML 500 MG/100 ML BAG IV SCH ×3 (05:59→22:19)
[2017-12-31] MEDS: DUONEB *Not for PRN Use IH SCH ×3 (08:03→21:29)
[2017-12-31] MEDS: COREG PO SCH ×2 (09:48→22:20)
--- NOTE | 2017-12-31 10:36 | Progress Note ---
Assessment and Plan 1. Renal failure on hemodialysis 2. Nonischemic cardiomyopathy LVEF 40-45% 3. Essential hypertension 4. Anemia Plan. Cardiac-barcenas stable continue present management. Subjective Date of service: 12/31/17 Principal diagnosis: Anemia Interval history: No cardiac symptoms Objective Vital Signs Temp Pulse Pulse Pulse Resp Resp BP 12/31/17 07:44 98.4 F 79 18 137/85 12/31/17 04:29 84 144/85 12/31/17 03:07 98.3 F 84 20 144/85 12/30/17 22:00 94 H 82 20 136/77 12/30/17 20:36 12/30/17 20:20 93 H 20 12/30/17 20:10 94 H 20 12/30/17 20:05 93 H 137/78 12/30/17 20:00 94 H 12/30/17 19:52 97.6 F 97 H 20 136/77 12/30/17 16:00 90 20 12/30/17 15:45 88 18 12/30/17 14:36 98.4 F 104 H 20 124/73 12/30/17 14:00 98.0 F 106 H 18 137/81 12/30/17 13:50 111 H 139/83 12/30/17 13:40 111 H 122/61 12/30/17 13:25 118 H 143/84 12/30/17 13:10 105 H 147/76 12/30/17 13:02 12/30/17 12:55 107 H 114/80 12/30/17 12:40 102 H 130/76 12/30/17 12:25 100 H 129/77 12/30/17 12:10 109 H 113/68 12/30/17 11:55 102 H 132/78 12/30/17 11:40 97 H 117/82 12/30/17 11:25 100 H 113/66 12/30/17 11:10 98 H 118/65 12/30/17 10:55 98.2 F 89 18 146/70 Pulse Ox 12/31/17 07:44 98 12/31/17 04:29 12/31/17 03:07 97 12/30/17 22:00 98 12/30/17 20:36 99 12/30/17 20:20 12/30/17 20:10 12/30/17 20:05 12/30/17 20:00 12/30/17 19:52 99 12/30/17 16:00 12/30/17 15:45 12/30/17 14:36 94 12/30/17 14:00 12/30/17 13:50 12/30/17 13:40 12/30/17 13:25 12/30/17 13:10 12/30/17 13:02 99 12/30/17 12:55 12/30/17 12:40 12/30/17 12:25 12/30/17 12:10 12/30/17 11:55 12/30/17 11:40 12/30/17 11:25 12/30/17 11:10 12/30/17 10:55 - Physical Examination General: No Apparent Distress HEENT: Positive: PERRL Neck: Positive: trachea midline Cardiac: Positive: Regular Rate, S1/S2, PMI, Laterally Displaced. Negative: S3 , S4 Lungs: Positive: clear to auscultation, No Wheeze, Rales, Rhonchi Neuro: Positive: Grossly Intact Abdomen: Positive: Active Bowel Sounds, Distended Extremities: Absent: edema - Imaging and Cardiology EKG: report reviewed, image reviewed - Allied health notes Allied health notes reviewed: nursing
--- NOTE | 2017-12-31 12:16 | Progress Note ---
Assessment and Plan 67-year-old male from [place] admitted with acute respiratory failure, acute renal failure, acidosis requiring mechanical ventilation, ICU stay and hemodialysis now with: 1) Leukocytosis: Respiratory status remains stable, not concerning for a pneumonia. Blood cultures negative. Diarrhea also seems to have resolved / improved now that he is off Golytely. Off all antimicrobials except Flagyl. Monitor WBC, monitor for diarrhea, given risk of C.difficile. 2) Acute renal failure: Requiring hemodialysis. Renally dose antibiotics. Nephrology following. 3) Acute anemia: No overt signs of bleeding. GI following. 4) Acute right lower extremity DVT: On anticoagulation with heparin. Recommendations: Continue IV Flagyl 500 mg every 8 hours Follow WBC trend Avoid other systemic antibiotics unless patient develops any fever or hemodynamic instability Please call with questions. Lincoln Linton MD [facility] C: [phone] O: [phone] Subjective Date of service: 12/31/17 Principal diagnosis: Leucocytosis Interval history: Denies any fever or chills. no abdominal pain. No cough or shortness of breath. Denies any diarrhea, discussed with RN, only one pasty bowel movement. Objective - Exam Narrative Exam: Physical Exam: Constitutional: Alert, cooperative. No acute distress Head, Ears, Nose: Normocephalic, atraumatic. External ears, nose normal Eyes: Conjunctivae/corneas clear. No icterus. No ptosis. Neck: Supple, no meningeal signs Oral: edentulous mainly, no thrush. Cardiovascular: S1, S2 normal. Respiratory: Good air entry, bilaterally with basal crackles GI: Soft, mildly distended, non-tender; bowel sounds normal. No peritoneal signs Musculoskeletal: No pedal edema, no cyanosis. Hem/Lymphatic: No palpable cervical or supraclavicular nodes. No lymphangitis Neurological: Awake, alert, oriented. No gross abnormality. Lines: Right subclavian HD cath, c/d/i - Constitutional Vitals: Vital Signs Temp Pulse Resp BP Pulse Ox 98.4 F 82 18 137/85 98 12/31/17 07:44 12/31/17 08:06 12/31/17 08:06 12/31/17 07:44 12/31/17 08:00 Temperature -Last 24 Hours Temperature 98.4 F Temperature 98.3 F Temperature 97.6 F Temperature 98.4 F Temperature 98.0 F - Labs CBC & Chem 7: 12/30/17 01:27 12/30/17 01:27 Labs: Abnormal lab results 12/30/17 12/30/17 12/30/17 Range/Units 12:50 16:56 21:46 POC Glucose 114 H 114 H (70-105) Acetaminophen < 5.0 L (10.0-30.0) ug/mL
--- NOTE | 2017-12-31 13:17 | Progress Note ---
Assessment and Plan Assessment and plan: --Hypokalemia; replace per protocol monitor levels --Sepsis; possible bilateral pneumonia, received full treatment ,resolved --Ileus; surgery evaluated, resolved --Acute respiratory failure with hypoxia requiring intubation; extubated on Continue nasal cannula oxygen, titrate O2 sats to more than 90% --Acute on chronic kidney disease; On hemodialysis, nephrology following, outpatient HD scheduling of case management --Acute lower extremity DVT; on heparin drip We'll transition to oral anticoagulants when patient is more stable --Metabolic acidosis; improving with hemodialysis Closely monitor --Persistent leukocytosis; ID following, empiric Flagyl for possible C. difficile Closely monitor --Severe anemia; received 4 units of PRBC, hemoglobin 9.4, as the monitor CT abdomen and pelvis, negative, GI evaluated the patient, possible colonoscopy and EGD tomorrow --Acute on chronic systolic congestive heart failure; ejection fraction 40-45% Continue current management --Nonspecific Elevated troponin ; acute on chronic kidney disease Cardiology evaluated , medical management --Hypertension ; well controlled , continue current antihypertensives and when necessary medications --DVT prophylaxis; patient already has DVT, on heparin drip --DC planning; outpatient HD scheduling, possible discharge when medically stable Plan of care reviewed with the patient and his nurse History Interval history: Patient seen and examined medical records reviewed Patient feels better no new complaints Alert and awake responding appropriately Vital signs reviewed Hospitalist Physical - Constitutional Vitals: Temp Pulse Resp BP Pulse Ox 98.4 F 82 18 137/85 98 12/31/17 07:44 12/31/17 08:06 12/31/17 08:06 12/31/17 07:44 12/31/17 08:00 General appearance: Present: no acute distress, well-nourished - EENT Eyes: Present: PERRL, EOM intact - Neck Neck: Present: supple, normal ROM - Respiratory Respiratory effort: normal Respiratory: bilateral: diminished, negative: rales, rhonchi, wheezing - Cardiovascular Rhythm: regular Heart Sounds: Present: S1 & S2 - Extremities Extremities: no ischemia, No edema - Abdominal General gastrointestinal: soft, non-tender, non-distended, normal bowel sounds - Integumentary Integumentary: Present: clear, warm - Psychiatric Psychiatric: appropriate mood/affect, cooperative - Neurologic Neurologic: CNII-XII intact, moves all extremities Results - Labs CBC & Chem 7: 12/30/17 01:27 12/30/17 01:27 Labs: Laboratory Last Values WBC 19.2 K/mm3 (4.5-11.0) H 12/30/17 01:27 RBC 3.57 M/mm3 (3.65-5.03) L 12/30/17 01:27 Hgb 9.4 gm/dl (11.8-15.2) L 12/30/17 01:27 Hct 29.3 % (35.5-45.6) L 12/30/17 01:27 MCV 82 fl (84-94) L 12/30/17 01:27 MCH 26 pg (28-32) L 12/30/17 01: MCHC 32 % (32-34) 12/30/17 01:27 RDW 19.5 % (13.2-15.2) H 12/30/17 01:27 Plt Count 164 K/mm3 (140-440) 12/30/17 01:27 Lymph % (Auto) 7.6 % (13.4-35.0) L 12/30/17 01:27 [place] % (Auto) 7.2 % (0.0-7.3) 12/30/17 01:27 Eos % (Auto) 1.4 % (0.0-4.3) 12/30/17 01:27 Baso % (Auto) 0.5 % (0.0-1.8) 12/30/17 01:27 Lymph # 1.5 K/mm3 (1.2-5.4) 12/30/17 01:27 [place] # 1.4 K/mm3 (0.0-0.8) H 12/30/17 01:27 Eos # 0.3 K/mm3 (0.0-0.4) 12/30/17 01:27 Baso # 0.1 K/mm3 (0.0-0.1) 12/30/17 01:27 Add Manual Diff Complete 12/29/17 00:42 Total Counted 100 12/29/17 00:42 Seg Neutrophils % 83.3 % (40.0-70.0) H 12/30/17 01:27 Seg Neuts % (Manual) 93.0 % (40.0-70.0) H 12/29/17 00:42 Band Neutrophils % 2.0 % 12/29/17 00:42 Lymphocytes % (Manual) 3.0 % (13.4-35.0) L 12/29/17 00:42 Reactive Lymphs % (Man) 0 % 12/29/17 00:42 Monocytes % (Manual) 2.0 % (0.0-7.3) 12/29/17 00:42 Eosinophils % (Manual) 0 % (0.0-4.3) 12/29/17 00:42 Basophils % (Manual) 0 % (0.0-1.8) 12/29/17 00:42 Metamyelocytes % 0 % 12/29/17 00:42 Myelocytes % 0 % 12/29/17 00:42 Promyelocytes % 0 % 12/29/17 00:42 Blast Cells % 0 % 12/29/17 00:42 Nucleated RBC % Not Reportable 12/29/17 00:42 Seg Neutrophils # 16.0 K/mm3 (1.8-7.7) H 12/30/17 01:27 Seg Neutrophils # Man 19.8 K/mm3 (1.8-7.7) H 12/29/17 00:42 Band Neutrophils # 0.4 K/mm3 12/29/17 00:42 Lymphocytes # (Manual) 0.6 K/mm3 (1.2-5.4) L 12/29/17 00:42 Abs React Lymphs (Man) 0.0 K/mm3 12/29/17 00:42 Monocytes # (Manual) 0.4 K/mm3 (0.0-0.8) 12/29/17 00:42 Eosinophils # (Manual) 0.0 K/mm3 (0.0-0.4) 12/29/17 00:42 Basophils # (Manual) 0.0 K/mm3 (0.0-0.1) 12/29/17 00:42 Metamyelocytes # 0.0 K/mm3 12/29/17 00:42 Myelocytes # 0.0 K/mm3 12/29/17 00:42 Promyelocytes # 0.0 K/mm3 12/29/17 00:42 Blast Cells # 0.0 K/mm3 12/29/17 00:42 WBC Morphology Not Reportable 12/29/17 00:42 Hypersegmented Neuts Not Reportable 12/29/17 00:42 Hyposegmented Neuts Not Reportable 12/29/17 00:42 Hypogranular Neuts Not Reportable 12/29/17 00:42 Smudge Cells Not Reportable 12/29/17 00:42 Toxic Granulation Not Reportable 12/29/17 00:42 Toxic Vacuolation Not Reportable 12/29/17 00:42 Dohle Bodies Not Reportable 12/29/17 00:42 Pelger-Huet Anomaly Not Reportable 12/29/17 00:42 Td Rods Not Reportable 12/29/17 00:42 Platelet Estimate Consistent w auto 12/29/17 00:42 Clumped Platelets Not Reportable 12/29/17 00:42 Plt Clumps, EDTA Not Reportable 12/29/17 00:42 Large Platelets Not Reportable 12/29/17 00:42 Giant Platelets Not Reportable 12/29/17 00:42 Platelet Satelliting Not Reportable 12/29/17 00:42 Plt Morphology Comment Not Reportable 12/29/17 00:42 RBC Morphology Not Reportable 12/29/17 00:42 Dimorphic RBCs Not Reportable 12/29/17 00:42 Polychromasia Not Reportable 12/29/17 00:42 Hypochromasia 1+ 12/29/17 00:42 Poikilocytosis Not Reportable 12/29/17 00:42 Anisocytosis 1+ 12/29/17 00:42 Microcytosis 1+ 12/29/17 00:42 Macrocytosis Not Reportable 12/29/17 00:42 Spherocytes Not Reportable 12/29/17 00:42 Pappenheimer Bodies Not Reportable 12/29/17 00:42 Sickle Cells Not Reportable 12/29/17 00:42 Target Cells Not Reportable 12/29/17 00:42 Tear Drop Cells Not Reportable 12/29/17 00:42 Ovalocytes Not Reportable 12/29/17 00:42 Helmet Cells Not Reportable 12/29/17 00:42 [place] Bodies Not Reportable 12/29/17 00:42 [place] Rings Not Reportable 12/29/17 00:42 [place] Cells Not Reportable 12/29/17 00:42 Bite Cells Not Reportable 12/29/17 00:42 Crenated Cell Not Reportable 12/29/17 00:42 Elliptocytes Not Reportable 12/29/17 00:42 Acanthocytes (Spur) Not Reportable 12/29/17 00:42 Rouleaux Not Reportable 12/29/17 00:42 Hemoglobin C Crystals Not Reportable 12/29/17 00:42 Schistocytes Not Reportable 12/29/17 00:42 Malaria parasites Not Reportable 12/29/17 00:42 [place] Bodies Not Reportable 12/29/17 00:42 Hem Pathologist Commnt No 12/29/17 00:42 PT 15.3 Sec. (12.2-14.9) H 12/29/17 05:48 INR 1.15 (0.87-1.13) H 12/29/17 05:48 APTT 27.9 Sec. (24.2-36.6) 12/19/17 19:17 D-Dimer 1108.83 ng/mlDDU (0-234) H 12/15/17 17:16 Heparin Anti-Xa Level 0.50 U.I./ml (0.3-0.7) 12/30/17 17:54 POC ABG pH 7.446 (7.35-7.45) 12/21/17 03:44 POC ABG pCO2 27.6 (35-45) L 12/21/17 03:44 POC ABG pO2 90 (80-105) 12/21/17 03:44 POC ABG HCO3 19.0 12/21/17 03:44 POC ABG Total CO2 20 12/21/17 03:44 POC ABG O2 Sat 97 12/21/17 03:44 POC ABG Base Excess -5 12/21/17 03:44 VBG pH 7.204 (7.320-7.420) L 12/15/17 18:01 FiO2 30 % 12/21/17 03:44 Sodium 138 mmol/L (137-145) 12/30/17 01:27 Potassium 3.0 mmol/L (3.6-5.0) L 12/30/17 01:27 Chloride 95.0 mmol/L (98-107) L 12/30/17 01:27 Carbon Dioxide 20 mmol/L (22-30) L 12/30/17 01:27 Anion Gap 26 mmol/L 12/30/17 01:27 BUN 59 mg/dL (9-20) H 12/30/17 01:27 Creatinine 8.0 mg/dL (0.8-1.5) H 12/30/17 01:27 Estimated GFR 7 ml/min 12/30/17 01:27 BUN/Creatinine Ratio 7 % 12/30/17 01:27 Glucose 95 mg/dL (75-100) 12/30/17 01:27 POC Glucose 95 (70-105) 12/31/17 11:52 Hemoglobin A1c < 4.2 % (4-6) 12/15/17 17:16 Lactic Acid 1.40 mmol/L (0.7-2.0) 12/15/17 17:16 Calcium 8.4 mg/dL (8.4-10.2) 12/30/17 01:27 Phosphorus 7.50 mg/dL (2.5-4.5) H 12/28/17 02:42 Iron 37 ug/dL (49-181) L 12/16/17 00:24 TIBC 416 mcg/dL (250-450) 12/16/17 00:24 Ferritin 16.1 ng/mL (13.0-400.0) 12/16/17 00:24 Total Bilirubin 0.20 mg/dL (0.1-1.2) 12/30/17 01:27 AST 20 units/L (5-40) 12/30/17 01:27 ALT 15 units/L (7-56) 12/30/17 01:27 Alkaline Phosphatase 77 units/L (35-129) 12/30/17 01:27 Total Creatine Kinase 736 units/L (55-170) H 12/15/17 17:16 CK-MB (CK-2) 7.7 ng/mL (0.0-4.0) H 12/15/17 17:16 CK-MB (CK-2) Rel Index 1.0 (0-4) 12/15/17 17:16 Troponin T 0.067 ng/mL (0.00-0.029) H 12/15/17 17:16 NT-Pro-B Natriuret Pep 85784 pg/mL (0-900) H 12/15/17 17:16 Total Protein 7.0 g/dL (6.3-8.2) 12/30/17 01:27 Albumin 3.4 g/dL (3.9-5) L 12/30/17 01:27 Albumin/Globulin Ratio 0.9 % 12/30/17 01:27 Triglycerides 440 mg/dL (2-149) H 12/19/17 05:10 Cholesterol 163 mg/dL (50-199) 12/15/17 17:16 LDL Cholesterol Direct 102 mg/dL (50-130) 12/15/17 17:16 HDL Cholesterol 29 mg/dL (40-59) L 12/15/17 17:16 Cholesterol/HDL Ratio 5.62 % 12/15/17 17:16 Vitamin B12 221.6 pg/mL (211-911) 12/16/17 00:24 Folate 14.63 ng/mL (7.3-26.0) 12/16/17 00:24 Urine Color Yellow (Yellow) 12/16/17 12:05 Urine Turbidity Cloudy (Clear) 12/16/17 12:05 Urine pH 5.0 (5.0-7.0) 12/16/17 12:05 Ur Specific [place] 1.012 (1.003-1.030) 12/16/17 12:05 Urine Protein >500 mg/dL (Negative) 12/16/17 12:05 Urine Glucose (UA) 50 mg/dL (Negative) 12/16/17 12:05 Urine Ketones Neg mg/dL (Negative) 12/16/17 12:05 Urine Blood Mod (Negative) 12/16/17 12:05 Urine Nitrite Neg (Negative) 12/16/17 12:05 Urine Bilirubin Neg (Negative) 12/16/17 12:05 Urine Urobilinogen < 2.0 mg/dL (<2.0) 12/16/17 12:05 Ur Leukocyte Esterase Lg (Negative) 12/16/17 12:05 Urine WBC (Auto) > 182.0 /HPF (0.0-6.0) H 12/16/17 12:05 Urine RBC (Auto) 30.0 /HPF (0.0-6.0) 12/16/17 12:05 U Epithel Cells (Auto) 1.0 /HPF (0-13.0) 12/16/17 12:05 Urine Bacteria (Auto) 1+ /HPF (Negative) 12/16/17 12:05 Urine WBC Clumps 3+ /HPF 12/16/17 12:05 Urine Mucus 1+ /HPF 12/16/17 12:05 Urine Creatinine 81.7 mg/dL (0.1-20.0) H 12/16/17 12:05 Urine Sodium 62 mmol/L 12/16/17 12:05 Urine Total Protein 493 mg/dL (5-11.8) H 12/16/17 12:05 Urine Opiates Screen Presumptive negative 12/16/17 12:05 Urine Methadone Screen Presumptive negative 12/16/17 12:05 Acetaminophen < 5.0 ug/mL (10.0-30.0) L 12/30/17 12:50 Ur Barbiturates Screen Presumptive negative 12/16/17 12:05 Ur Phencyclidine Scrn Presumptive negative 12/16/17 12:05 Ur Amphetamines Screen Presumptive negative 12/16/17 12:05 U Benzodiazepines Scrn Presumptive positive 12/16/17 12:05 Urine Cocaine Screen Presumptive negative 12/16/17 12:05 U Marijuana (THC) Screen Presumptive negative 12/16/17 12:05 Drugs of Abuse Note Disclamer 12/16/17 12:05 Hepatitis A IgM Ab Nonreactive (NonReactive) 12/16/17 04:47 Hep Bs Antigen Non-reactive (Negative) 12/16/17 04:47 Hep B Core IgM Ab Non-reactive (NonReactive) 12/16/17 04:47 Hepatitis C Antibody Non-reactive (NonReactive) 12/16/17 04:47 Blood Type A POSITIVE 12/15/17 17:45 Antibody Screen Negative 12/15/17 17:45 Crossmatch See Detail 12/15/17 17:45
--- NOTE | 2017-12-31 15:23 | Progress Note ---
Assessment and Plan - Patient Problems (1) Acute kidney injury superimposed on chronic kidney disease Current Visit: Yes Status: Acute Plan to address problem: Patient presumably has chronic kidney disease given the echogenic kidneys and nephrotic range proteinuria. Question chronic Glomerulonephritis. Acute kidney injury probably acute tubular necrosis versus acute on chronic cardiorenal syndrome. Patient tolerating dialysis with improvement in volume status. S/p permacath placement. Arrangements for outpatient dialysis ongoing. Hemodialysis on a Monday, and Monday schedule. (2) Acute heart failure Current Visit: Yes Status: Acute Plan to address problem: Volume status improved with dialysis. Ejection fraction 40-45% on 2-D echo (3) Hypertensive chronic kidney disease with stage 5 chronic kidney disease or end stage renal disease Current Visit: Yes Status: Acute Plan to address problem: Follow-up blood pressure on current medications (4) Acidosis, metabolic Current Visit: Yes Status: Acute Plan to address problem: Improving with dialysis (5) Severe anemia Current Visit: Yes Status: Chronic Plan to address problem: Hemoglobin improved with packed Red blood cell transfusions. Follow-up hemoglobin (6) Acute respiratory failure with hypoxia Current Visit: Yes Status: Acute Plan to address problem: Status post extubation. Continue monitoring by pulmonary Subjective Date of service: 12/31/17 Principal diagnosis: Leucocytosis Interval history: Patient seen lying in bed. He has no new complaints. Denies pain. Admits to nausea but no vomiting. Denies shortness of breath. Objective - Exam Narrative Exam: Elderly male lying in bed on oxygen via Ventimask HEENT: NCAT, pink oral mucous membranes Neck: Supple, no venous distention CVS: S1S2 RRR with no murmur, rub or gallop Chest: Clear to auscultation Abdomen: Protuberant, soft, nontender, no organomegaly, bowel sounds are present Extremities: No edema Skin warm and dry, no rash Neuro: Awake, looks dull, moving extremities - Vital Signs Vital signs: Vital Signs - 12hr 12/31/17 12/31/17 12/31/17 04:29 07:44 08:00 Temperature 98.4 F Pulse Rate 84 79 Pulse Rate [ 80 Anterior Bilateral Throughout] Respiratory 18 Rate Respiratory 18 Rate [Anterior Bilateral Throughout] Blood Pressure 144/85 137/85 O2 Sat by Pulse 98 98 Oximetry 12/31/17 12/31/17 12/31/17 08:06 13:14 14:00 Temperature 97.5 F L Pulse Rate 72 Pulse Rate [ 82 70 Anterior Bilateral Throughout] Respiratory 20 Rate Respiratory 18 18 Rate [Anterior Bilateral Throughout] Blood Pressure 130/69 O2 Sat by Pulse 98 Oximetry 12/31/17 14:09 Temperature Pulse Rate Pulse Rate [ 70 Anterior Bilateral Throughout] Respiratory Rate Respiratory 16 Rate [Anterior Bilateral Throughout] Blood Pressure O2 Sat by Pulse Oximetry - Lab 12/30/17 01:27 12/30/17 01:27 Most recent lab results Calcium 8.4 mg/dL (8.4-10.2) 12/30/17 01:27 Phosphorus 7.50 mg/dL (2.5-4.5) H 12/28/17 02:42 Urine Creatinine 81.7 mg/dL (0.1-20.0) H 12/16/17 12:05 Urine Sodium 62 mmol/L 12/16/17 12:05 Urine Total Protein 493 mg/dL (5-11.8) H 12/16/17 12:05
--- NOTE | 2017-12-31 18:25 | Progress Note ---
Assessment and Plan 1. Iron deficiency anemia - etiology unclear. Will proceed with EGD/Colon. 2. Leukocytosis - per ID. Subjective Date of service: 12/31/17 Principal diagnosis: Leucocytosis Interval history: Pt denies GI complaints. No CP or SOB. Objective - Constitutional Vitals: Vital Signs - 12hr 12/31/17 12/31/17 12/31/17 07:44 08:00 08:06 Temperature 98.4 F Pulse Rate 79 Pulse Rate [ 80 82 Anterior Bilateral Throughout] Respiratory 18 Rate Respiratory 18 18 Rate [Anterior Bilateral Throughout] Blood Pressure 137/85 O2 Sat by Pulse 98 98 Oximetry 12/31/17 12/31/17 12/31/17 13:14 14:00 14:09 Temperature 97.5 F L Pulse Rate 72 Pulse Rate [ 70 70 Anterior Bilateral Throughout] Respiratory 20 Rate Respiratory 18 16 Rate [Anterior Bilateral Throughout] Blood Pressure 130/69 O2 Sat by Pulse 98 Oximetry General appearance: Present: no acute distress - EENT Eyes: PERRL, EOM intact ENT: hearing intact - Respiratory Respiratory effort: normal - Gastrointestinal General gastrointestinal: Present: soft, non-tender - Labs CBC & Chem 7: 12/30/17 01:27 12/30/17 01:27 Labs: Abnormal lab results 12/30/17 12/31/17 Range/Units 21:46 Unknown Heparin Anti-Xa Level 0.15 L (0.3-0.7) U.I./ml POC Glucose 114 H (70-105)
[2017-12-31] MEDS ORDERED: GOLYTELY PO ONE (20:00)
[2017-12-31] MEDS: HEPARIN/ 0.45% NACL-25,000 UNIT/500 ML 25,000 UNIT/500 ML BAG IV SCH (23:08)
--- NOTE | 2017-12-31 23:53 | Progress Note ---
Subjective - Reason for Consult Consult date: 12/31/17 Reason for consult: Psychiatric Follow-up Evaluation - Chief Complaint Chief complaint: " I'm good" Mental Status Exam - Vital signs Last Vital Signs Temp 97.8 F 12/31/17 19:08 Pulse 70 12/31/17 22:20 Resp 20 12/31/17 21:10 BP 145/70 12/31/17 22:20 Pulse Ox 99 12/31/17 21:27
[2018-01-01] MEDS: LOPRESSOR IV SCH (04:25)
[2018-01-01 04:37] LABS: Calcium 8.4 mg/dL (8.4-10.2)
[2018-01-01 04:42] LABS: Basophils # (Auto) 0.1 K/mm3 (0.0-0.1); Basophils % (Auto) 0.4 % (0.0-1.8); Eosinophils # (Auto) 0.3 K/mm3 (0.0-0.4); Eosinophils % (Auto) 1.8 % (0.0-4.3); Hematocrit 26.4 % (35.5-45.6); Hemoglobin 8.4 gm/dl (11.8-15.2); Lymphocytes # (Auto) 1.9 K/mm3 (1.2-5.4); Lymphocytes % (Auto) 12.6 % (13.4-35.0); Mean Corpuscular HGB Conc 32 % (32-34); Mean Corpuscular Hemoglobin 26 pg (28-32); Mean Corpuscular Volume 82 fl (84-94); Monocytes # (Auto) 1.2 K/mm3 (0.0-0.8); Monocytes % (Auto) 8.2 % (0.0-7.3); Red Blood Count 3.23 M/mm3 (3.65-5.03); Red Cell Distribution Width 19.8 % (13.2-15.2)
[2018-01-01 04:45] LABS: Platelet Count 91 K/mm3 (140-440)
[2018-01-01] MEDS: FLAGYL 500 MG/100 ML 500 MG/100 ML BAG IV SCH ×3 (06:01→23:00)
--- NOTE | 2018-01-01 08:00 | Progress Note ---
Assessment and Plan Assessment and Plan 67-year-old male from [place] admitted with acute respiratory failure, acute renal failure, acidosis requiring mechanical ventilation, ICU stay and hemodialysis now with: 1) Leukocytosis: Improving 19.2 -->14.8, Afebrile. Blood cultures remain negative. Continue to monitor stools. Currently on Flagyl, D4. 2) Acute renal failure: Requiring hemodialysis. Renally dose antibiotics. Nephrology following. 3) Acute anemia: No overt signs of bleeding. GI following. 4) Acute right lower extremity DVT: On anticoagulation with heparin. Recommendations: Continue IV Flagyl 500 mg every 8 hours, D4 Continue to monitor fever. [facility] M: [id number] O:[phone] Subjective Date of service: 01/01/18 Principal diagnosis: Leucocytosis Interval history: Patient was laying in bed. Patient denied pain, denied having tarry stools. Current Antimicrobials: Flagyl, D4 Objective - Exam Narrative Exam: Constitutional: Alert, cooperative. No acute distress Head, Ears, Nose: Normocephalic, atraumatic. External ears, nose normal Eyes: Conjunctivae/corneas clear. No icterus. No ptosis. Neck: Supple, no meningeal signs Oral: edentulous mainly, no thrush. Cardiovascular: S1, S2 normal. Respiratory: Good air entry, bilaterally GI: Soft, mildly distended, non-tender; bowel sounds normal. No peritoneal signs Musculoskeletal: No pedal edema, no cyanosis. Hem/Lymphatic: No palpable cervical or supraclavicular nodes. No lymphangitis Neurological: Awake, alert, oriented. No gross abnormality. Lines: Right subclavian HD cath, c/d/i - Constitutional Vitals: Vital Signs Temp Pulse Resp BP Pulse Ox 97.8 F 75 18 156/76 99 01/01/18 02:21 01/01/18 04:25 01/01/18 02:21 01/01/18 04:25 01/01/18 02:21 Temperature -Last 24 Hours Temperature 97.8 F Temperature 97.8 F Temperature 97.5 F - Labs CBC & Chem 7: 01/01/18 03:26 01/01/18 03:26 Labs: Abnormal lab results 12/31/17 12/31/17 01/01/18 Range/Units 20:04 Unknown 03:26 WBC 14.8 H (4.5-11.0) K/mm3 RBC 3.23 L (3.65-5.03) M/mm3 Hgb 8.4 L (11.8-15.2) gm/dl Hct 26.4 L (35.5-45.6) % MCV 82 L (84-94) fl MCH 26 L (28-32) pg RDW 19.8 H (13.2-15.2) % Plt Count 91 L (140-440) K/mm3 Lymph % (Auto) 12.6 L (13.4-35.0) % [place] % (Auto) 8.2 H (0.0-7.3) % [place] # 1.2 H (0.0-0.8) K/mm3 Seg Neutrophils % 77.0 H (40.0-70.0) % Seg Neutrophils # 11.4 H (1.8-7.7) K/mm3 Heparin Anti-Xa Level 0.15 L (0.3-0.7) U.I./ml Potassium (3.6-5.0) mmol/L Chloride (98-107) mmol/L Carbon Dioxide (22-30) mmol/L BUN (9-20) mg/dL Creatinine (0.8-1.5) mg/dL POC Glucose 156 H (70-105) 01/01/18 Range/Units 03:26 WBC (4.5-11.0) K/mm3 RBC (3.65-5.03) M/mm3 Hgb (11.8-15.2) gm/dl Hct (35.5-45.6) % MCV (84-94) fl MCH (28-32) pg RDW (13.2-15.2) % Plt Count (140-440) K/mm3 Lymph % (Auto) (13.4-35.0) % [place] % (Auto) (0.0-7.3) % [place] # (0.0-0.8) K/mm3 Seg Neutrophils % (40.0-70.0) % Seg Neutrophils # (1.8-7.7) K/mm3 Heparin Anti-Xa Level (0.3-0.7) U.I./ml Potassium 3.2 L (3.6-5.0) mmol/L Chloride 97.0 L (98-107) mmol/L Carbon Dioxide 19 L (22-30) mmol/L BUN 58 H (9-20) mg/dL Creatinine 7.8 H (0.8-1.5) mg/dL POC Glucose (70-105)
[2018-01-01] MEDS: DUONEB *Not for PRN Use IH SCH ×2 (08:04→13:35)
[2018-01-01] MEDS: COREG PO SCH ×2 (08:59→23:00)
[2018-01-01] MEDS ORDERED: K-DUR PO NR (09:23)
--- NOTE | 2018-01-01 10:03 | Progress Note ---
Assessment and Plan - Patient Problems (1) Acute renal failure (ARF) Current Visit: Yes Status: Acute Plan to address problem: Patient presumably has chronic kidney disease given the echogenic kidneys and nephrotic range proteinuria. Question chronic Glomerulonephritis. Acute kidney injury probably acute tubular necrosis versus acute on chronic cardiorenal syndrome. S/p permacath placement. Arrangements for outpatient dialysis ongoing. cont HD on a Monday, and Monday schedule. (2) Acute heart failure Current Visit: Yes Status: Acute Plan to address problem: Volume status improved with dialysis. Ejection fraction 40-45% on 2-D echo (3) Acute respiratory failure with hypoxia Current Visit: Yes Status: Acute Plan to address problem: Continue monitoring by pulmonary (4) Anemia Current Visit: Yes Status: Acute Plan to address problem: Hemoglobin improved with packed Red blood cell transfusions. start EPO with HD. Follow-up hemoglobin (5) Hypertensive chronic kidney disease with stage 5 chronic kidney disease or end stage renal disease Current Visit: Yes Status: Acute Plan to address problem: Follow-up blood pressure on current medications Subjective Date of service: 01/01/18 Principal diagnosis: Leucocytosis Interval history: Pt is awake, alert, in NAD Objective - Vital Signs Vital signs: Vital Signs - 12hr 12/31/17 01/01/18 01/01/18 22:20 02:21 04:25 Temperature 97.8 F Pulse Rate 70 75 75 Pulse Rate [ Anterior Bilateral Throughout] Pulse Rate [ Right Radial] Respiratory 18 Rate Respiratory Rate [Anterior Bilateral Throughout] Blood Pressure 145/70 156/76 156/76 O2 Sat by Pulse 99 Oximetry 01/01/18 01/01/18 01/01/18 07:38 08:00 08:04 Temperature 98.3 F Pulse Rate 71 74 Pulse Rate [ Anterior Bilateral Throughout] Pulse Rate [ Right Radial] Respiratory 18 Rate Respiratory Rate [Anterior Bilateral Throughout] Blood Pressure 149/83 O2 Sat by Pulse 99 99 Oximetry 01/01/18 01/01/18 01/01/18 08:06 08:20 09:43 Temperature Pulse Rate Pulse Rate [ 67 70 Anterior Bilateral Throughout] Pulse Rate [ 72 Right Radial] Respiratory 20 Rate Respiratory 18 18 Rate [Anterior Bilateral Throughout] Blood Pressure O2 Sat by Pulse 99 Oximetry - General Appearance General appearance: well-developed, well-nourished, appears stated age EENT: ATNC, PERRL, mucous membranes moist Neck: no JVD Respiratory: Present: Clear to Ascultation Cardiology: regular, S1S2 Gastrointestinal: normoactive bowel sounds Integumentary: no rash, other (no edema ) Neurologic: no focal deficit, alert and oriented x3, strength 5/5, CN 3-12 intact Psychiatric: mood/affect appropriate, cooperative - Lab 01/01/18 03:26 01/01/18 03:26 Most recent lab results Calcium 8.4 mg/dL (8.4-10.2) 01/01/18 03:26 Phosphorus 7.50 mg/dL (2.5-4.5) H 12/28/17 02:42 Urine Creatinine 81.7 mg/dL (0.1-20.0) H 12/16/17 12:05 Urine Sodium 62 mmol/L 12/16/17 12:05 Urine Total Protein 493 mg/dL (5-11.8) H 12/16/17 12:05
--- NOTE | 2018-01-01 10:09 | Progress Note ---
Assessment and Plan Acute respiratory failure now extubated Acute on chronic renal failure s/p urgent dialysis Anemia s/p transfusion of PRBCs Acute systolic heart failure EF 40-45% by echo Hypertension Acute right iliac DVT on IV heparin Ileus vs partial small bowel obstruction Conservative cardiac management. Subjective Date of service: 01/01/18 Principal diagnosis: Leucocytosis Interval history: Patient is resting in bed comfortably. For planned GI endoscopy. Objective Vital Signs Temp Pulse Pulse Pulse Resp Resp BP 01/01/18 09:43 72 20 01/01/18 08:20 70 18 01/01/18 08:06 67 18 01/01/18 08:04 01/01/18 08:00 74 01/01/18 07:38 98.3 F 71 18 149/83 01/01/18 04:25 75 156/76 01/01/18 02:21 97.8 F 75 18 156/76 12/31/17 22:20 70 145/70 12/31/17 22:00 76 20 12/31/17 21:27 12/31/17 21:10 82 20 12/31/17 21:00 80 20 12/31/17 20:49 75 151/70 12/31/17 20:00 75 12/31/17 19:08 97.8 F 75 18 151/70 12/31/17 14:09 70 16 12/31/17 14:00 70 18 12/31/17 13:14 97.5 F L 72 20 130/69 Pulse Ox 01/01/18 09:43 99 01/01/18 08:20 01/01/18 08:06 01/01/18 08:04 99 01/01/18 08:00 01/01/18 07:38 99 01/01/18 04:25 01/01/18 02:21 99 12/31/17 22:20 12/31/17 22:00 98 12/31/17 21:27 99 12/31/17 21:10 12/31/17 21:00 12/31/17 20:49 12/31/17 20:00 12/31/17 19:08 98 12/31/17 14:09 12/31/17 14:00 12/31/17 13:14 98 - Physical Examination General: No Apparent Distress HEENT: Positive: PERRL Neck: Positive: trachea midline Cardiac: Positive: Reg Rate and Rhythm Neuro: Positive: Grossly Intact Extremities: Absent: edema - Labs and Meds CBC 01/01/18 Range/Units 03:26 WBC 14.8 H (4.5-11.0) K/mm3 RBC 3.23 L (3.65-5.03) M/mm3 Hgb 8.4 L (11.8-15.2) gm/dl Hct 26.4 L (35.5-45.6) % Plt Count 91 L (140-440) K/mm3 Lymph # 1.9 (1.2-5.4) K/mm3 [place] # 1.2 H (0.0-0.8) K/mm3 Eos # 0.3 (0.0-0.4) K/mm3 Baso # 0.1 (0.0-0.1) K/mm3 Comprehensive Metabolic Panel 01/01/18 Range/Units 03:26 Sodium 139 (137-145) mmol/L Potassium 3.2 L (3.6-5.0) mmol/L Chloride 97.0 L (98-107) mmol/L Carbon Dioxide 19 L (22-30) mmol/L BUN 58 H (9-20) mg/dL Creatinine 7.8 H (0.8-1.5) mg/dL Glucose 94 (75-100) mg/dL Calcium 8.4 (8.4-10.2) mg/dL - Imaging and Cardiology EKG: image reviewed - Allied health notes Allied health notes reviewed: nursing
--- NOTE | 2018-01-01 10:51 | Progress Note ---
Subjective - Reason for Consult Consult date: 01/01/18 Reason for consult: Psychiatry Follow-up - Chief Complaint Chief complaint: "I am okay" 67 year-old male presents to ER complaints of shortness of breath and cough that started 2 weeks ago. Psychiatry was consulted due to suspected depression. Today the patient is calm and cooperative during the assessment. He stated that he was "overwhelmed" with being "sick". He denies a previous mental health dx when asked. He stated that he feels better now and denies being depressed ( hopeless/helpless). He stated that his medical issues will get better. He denies SI/HI's and AVH's. Mental Status Exam - Vital signs Last Vital Signs Temp 98.3 F 01/01/18 07:38 Pulse 72 01/01/18 09:43 Resp 20 01/01/18 09:43 BP 149/83 01/01/18 07:38 Pulse Ox 99 01/01/18 09:43 - Exam Narrative exam: MSE: Appearance: calm, cooperative Behavior: regular eye contact Speech: regular rate and tone Mood: "okay" Affect: congruent to mood Thought Process: linear Thought Content: denies SI/HI's and AVH's Motor Activity: ambulatory Cognition: A/O x 3 Insight: appropriate Judgment: appropriate Assessment and Plan Impression: Adjustment DO. Today the patient is calm and cooperative during the assessment. DDx: R/O Mood DO Recommendation/Plan: The patient stated that he is doing better. We discussed therapy sessions outpatient, but he declined. Psy sign off.
[2018-01-01] MEDS ORDERED: K-DUR PO ONE (13:00)
--- NOTE | 2018-01-01 15:13 | Gastroenterology Progress Note ---
Assessment and Plan GI: pt wasn't prep for colonoscopy and heparin not stopped this am - will reschedule egd/colon for am - continue current other med Subjective Date of service: 01/01/18 Principal diagnosis: Leucocytosis Interval history: - no GI issues overnight Objective - Constitutional Vitals: Temp Pulse Resp BP Pulse Ox 97.3 F L 78 18 143/72 97 01/01/18 14:08 01/01/18 14:08 01/01/18 14:08 01/01/18 14:08 01/01/18 14:08 General appearance: no acute distress - EENT Eyes: PERRL - Respiratory Respiratory: bilateral: CTA - Cardiovascular Rhythm: regular Heart Sounds: Present: S1 & S2 - Labs CBC & Chem 7: 01/01/18 03:26 01/01/18 03:26 Labs: Laboratory Results - last 24 hr 12/31/17 12/31/17 12/31/17 16:24 20:04 23:04 WBC RBC Hgb Hct MCV MCH MCHC RDW Plt Count Lymph % (Auto) Moody % (Auto) Eos % (Auto) Baso % (Auto) Lymph # Moody # Eos # Baso # Seg Neutrophils % Seg Neutrophils # Heparin Anti-Xa Level 0.33 Sodium Potassium Chloride Carbon Dioxide Anion Gap BUN Creatinine Estimated GFR BUN/Creatinine Ratio Glucose POC Glucose 93 156 H Calcium 12/31/17 01/01/18 01/01/18 Unknown 03:26 03:26 WBC 14.8 H RBC 3.23 L Hgb 8.4 L Hct 26.4 L MCV 82 L MCH 26 L MCHC 32 RDW 19.8 H Plt Count 91 L Lymph % (Auto) 12.6 L Moody % (Auto) 8.2 H Eos % (Auto) 1.8 Baso % (Auto) 0.4 Lymph # 1.9 Moody # 1.2 H Eos # 0.3 Baso # 0.1 Seg Neutrophils % 77.0 H Seg Neutrophils # 11.4 H Heparin Anti-Xa Level 0.15 L Sodium 139 Potassium 3.2 L Chloride 97.0 L Carbon Dioxide 19 L Anion Gap 26 BUN 58 H Creatinine 7.8 H Estimated GFR 7 BUN/Creatinine Ratio 7 Glucose 94 POC Glucose Calcium 8.4 01/01/18 01/01/18 07:41 11:14 WBC RBC Hgb Hct MCV MCH MCHC RDW Plt Count Lymph % (Auto) Moody % (Auto) Eos % (Auto) Baso % (Auto) Lymph # Moody # Eos # Baso # Seg Neutrophils % Seg Neutrophils # Heparin Anti-Xa Level Sodium Potassium Chloride Carbon Dioxide Anion Gap BUN Creatinine Estimated GFR BUN/Creatinine Ratio Glucose POC Glucose 94 90 Calcium
--- NOTE | 2018-01-01 16:57 | Progress Note ---
Assessment and Plan Assessment and plan: --Severe anemia; received 4 units of PRBC, hemoglobin 8.4, CT abdomen and pelvis, negative, GI evaluated the patient, possible colonoscopy and EGD tomorrow. Will hold heparin prior to procedure --Acute on chronic kidney disease; HD per schedule outpatient HD scheduling per case management --Acute lower extremity DVT; on heparin drip We'll transition to oral anticoagulants after GI evaluation is completed --Metabolic acidosis; improving with hemodialysis --Hypokalemia; replace per protocol monitor levels, HD per schedule --Persistent leukocytosis; ID following, empiric Flagyl for possible C. difficile Contact isolation --Sepsis; possible bilateral pneumonia, received full treatment ,resolved --Ileus; surgery evaluated, resolved --Acute respiratory failure with hypoxia:intubation; extubated on 12/21/2017 Continue nasal cannula oxygen, evaluation for home O2 at discharge --Acute on chronic systolic congestive heart failure; ejection fraction 40-45% Continue current anti-failure medications, hemodialysis --Nonspecific Elevated troponin ; acute on chronic kidney disease, cardio evaluated medical management --Hypertension ; well controlled , on current antihypertensives,PRN meds --DVT prophylaxis; on heparin drip for DVT --DC planning; outpatient HD scheduling, possible discharge when medically stable Plan of care reviewed with the patient and his nurse Consults and recommendations noted and appreciated Disposition; follow EGD and colonoscopy, transition to oral anti-coagulants for DVT Outpatient HD scheduling per case management History Interval history: Patient seen and examined medical records reviewed No new events reported by the nursing staff Re scheduled EGD and colonoscopy for tomorrow Hold heparin 4-6 hours prior to procedure Patient has no new complaints Vitals reviewed Hospitalist Physical - Constitutional Vitals: Temp Pulse Resp BP Pulse Ox 97.3 F L 78 18 143/72 97 01/01/18 14:08 01/01/18 14:08 01/01/18 14:08 01/01/18 14:08 01/01/18 14:08 General appearance: Present: no acute distress, well-nourished - EENT Eyes: Present: PERRL, EOM intact - Neck Neck: Present: supple, normal ROM - Respiratory Respiratory effort: normal Respiratory: bilateral: diminished, rales, negative: rhonchi, wheezing - Cardiovascular Rhythm: regular Heart Sounds: Present: S1 & S2 - Extremities Extremities: no ischemia, No edema - Abdominal General gastrointestinal: soft, non-tender, non-distended, normal bowel sounds - Integumentary Integumentary: Present: clear, warm - Psychiatric Psychiatric: appropriate mood/affect, cooperative - Neurologic Neurologic: CNII-XII intact, moves all extremities Results - Labs CBC & Chem 7: 01/01/18 03:26 01/01/18 03:26 Labs: Laboratory Last Values WBC 14.8 K/mm3 (4.5-11.0) H 01/01/18 03:26 RBC 3.23 M/mm3 (3.65-5.03) L 01/01/18 03:26 Hgb 8.4 gm/dl (11.8-15.2) L 01/01/18 03:26 Hct 26.4 % (35.5-45.6) L 01/01/18 03:26 MCV 82 fl (84-94) L 01/01/18 03:26 MCH 26 pg (28-32) L 01/01/18 03:26 MCHC 32 % (32-34) 01/01/18 03:26 RDW 19.8 % (13.2-15.2) H 01/01/18 03:26 Plt Count 91 K/mm3 (140-440) L 01/01/18 03:26 Lymph % (Auto) 12.6 % (13.4-35.0) L 01/01/18 03:26 Pratt % (Auto) 8.2 % (0.0-7.3) H 01/01/18 03:26 Eos % (Auto) 1.8 % (0.0-4.3) 01/01/18 03:26 Baso % (Auto) 0.4 % (0.0-1.8) 01/01/18 03:26 Lymph # 1.9 K/mm3 (1.2-5.4) 01/01/18 03:26 Pratt # 1.2 K/mm3 (0.0-0.8) H 01/01/18 03:26 Eos # 0.3 K/mm3 (0.0-0.4) 01/01/18 03:26 Baso # 0.1 K/mm3 (0.0-0.1) 01/01/18 03:26 Add Manual Diff Complete 12/29/17 00:42 Total Counted 100 12/29/17 00:42 Seg Neutrophils % 77.0 % (40.0-70.0) H 01/01/18 03:26 Seg Neuts % (Manual) 93.0 % (40.0-70.0) H 12/29/17 00:42 Band Neutrophils % 2.0 % 12/29/17 00:42 Lymphocytes % (Manual) 3.0 % (13.4-35.0) L 12/29/17 00:42 Reactive Lymphs % (Man) 0 % 12/29/17 00:42 Monocytes % (Manual) 2.0 % (0.0-7.3) 12/29/17 00:42 Eosinophils % (Manual) 0 % (0.0-4.3) 12/29/17 00:42 Basophils % (Manual) 0 % (0.0-1.8) 12/29/17 00:42 Metamyelocytes % 0 % 12/29/17 00:42 Myelocytes % 0 % 12/29/17 00:42 Promyelocytes % 0 % 12/29/17 00:42 Blast Cells % 0 % 12/29/17 00:42 Nucleated RBC % Not Reportable 12/29/17 00:42 Seg Neutrophils # 11.4 K/mm3 (1.8-7.7) H 01/01/18 03:26 Seg Neutrophils # Man 19.8 K/mm3 (1.8-7.7) H 12/29/17 00:42 Band Neutrophils # 0.4 K/mm3 12/29/17 00:42 Lymphocytes # (Manual) 0.6 K/mm3 (1.2-5.4) L 12/29/17 00:42 Abs React Lymphs (Man) 0.0 K/mm3 12/29/17 00:42 Monocytes # (Manual) 0.4 K/mm3 (0.0-0.8) 12/29/17 00:42 Eosinophils # (Manual) 0.0 K/mm3 (0.0-0.4) 12/29/17 00:42 Basophils # (Manual) 0.0 K/mm3 (0.0-0.1) 12/29/17 00:42 Metamyelocytes # 0.0 K/mm3 12/29/17 00:42 Myelocytes # 0.0 K/mm3 12/29/17 00:42 Promyelocytes # 0.0 K/mm3 12/29/17 00:42 Blast Cells # 0.0 K/mm3 12/29/17 00:42 WBC Morphology Not Reportable 12/29/17 00:42 Hypersegmented Neuts Not Reportable 12/29/17 00:42 Hyposegmented Neuts Not Reportable 12/29/17 00:42 Hypogranular Neuts Not Reportable 12/29/17 00:42 Smudge Cells Not Reportable 12/29/17 00:42 Toxic Granulation Not Reportable 12/29/17 00:42 Toxic Vacuolation Not Reportable 12/29/17 00:42 Dohle Bodies Not Reportable 12/29/17 00:42 Pelger-Huet Anomaly Not Reportable 12/29/17 00:42 Td Rods Not Reportable 12/29/17 00:42 Platelet Estimate Consistent w auto 12/29/17 00:42 Clumped Platelets Not Reportable 12/29/17 00:42 Plt Clumps, EDTA Not Reportable 12/29/17 00:42 Large Platelets Not Reportable 12/29/17 00:42 Giant Platelets Not Reportable 12/29/17 00:42 Platelet Satelliting Not Reportable 12/29/17 00:42 Plt Morphology Comment Not Reportable 12/29/17 00:42 RBC Morphology Not Reportable 12/29/17 00:42 Dimorphic RBCs Not Reportable 12/29/17 00:42 Polychromasia Not Reportable 12/29/17 00:42 Hypochromasia 1+ 12/29/17 00:42 Poikilocytosis Not Reportable 12/29/17 00:42 Anisocytosis 1+ 12/29/17 00:42 Microcytosis 1+ 12/29/17 00:42 Macrocytosis Not Reportable 12/29/17 00:42 Spherocytes Not Reportable 12/29/17 00:42 Pappenheimer Bodies Not Reportable 12/29/17 00:42 Sickle Cells Not Reportable 12/29/17 00:42 Target Cells Not Reportable 12/29/17 00:42 Tear Drop Cells Not Reportable 12/29/17 00:42 Ovalocytes Not Reportable 12/29/17 00:42 Helmet Cells Not Reportable 12/29/17 00:42 [place] Bodies Not Reportable 12/29/17 00:42 [place] Rings Not Reportable 12/29/17 00:42 [place] Cells Not Reportable 12/29/17 00:42 Bite Cells Not Reportable 12/29/17 00:42 Crenated Cell Not Reportable 12/29/17 00:42 Elliptocytes Not Reportable 12/29/17 00:42 Acanthocytes (Spur) Not Reportable 12/29/17 00:42 Rouleaux Not Reportable 12/29/17 00:42 Hemoglobin C Crystals Not Reportable 12/29/17 00:42 Schistocytes Not Reportable 12/29/17 00:42 Malaria parasites Not Reportable 12/29/17 00:42 [place] Bodies Not Reportable 12/29/17 00:42 Hem Pathologist Commnt No 12/29/17 00:42 PT 15.3 Sec. (12.2-14.9) H 12/29/17 05:48 INR 1.15 (0.87-1.13) H 12/29/17 05:48 APTT 27.9 Sec. (24.2-36.6) 12/19/17 19:17 D-Dimer 1108.83 ng/mlDDU (0-234) H 12/15/17 17:16 Heparin Anti-Xa Level 0.15 U.I./ml (0.3-0.7) L 12/31/17 Unknown POC ABG pH 7.446 (7.35-7.45) 12/21/17 03:44 POC ABG pCO2 27.6 (35-45) L 12/21/17 03:44 POC ABG pO2 90 (80-105) 12/21/17 03:44 POC ABG HCO3 19.0 12/21/17 03:44 POC ABG Total CO2 20 12/21/17 03:44 POC ABG O2 Sat 97 12/21/17 03:44 POC ABG Base Excess -5 12/21/17 03:44 VBG pH 7.204 (7.320-7.420) L 12/15/17 18:01 FiO2 30 % 12/21/17 03:44 Sodium 139 mmol/L (137-145) 01/01/18 03:26 Potassium 3.2 mmol/L (3.6-5.0) L 01/01/18 03:26 Chloride 97.0 mmol/L (98-107) L 01/01/18 03:26 Carbon Dioxide 19 mmol/L (22-30) L 01/01/18 03:26 Anion Gap 26 mmol/L 01/01/18 03:26 BUN 58 mg/dL (9-20) H 01/01/18 03:26 Creatinine 7.8 mg/dL (0.8-1.5) H 01/01/18 03:26 Estimated GFR 7 ml/min 01/01/18 03:26 BUN/Creatinine Ratio 7 % 01/01/18 03:26 Glucose 94 mg/dL (75-100) 01/01/18 03:26 POC Glucose 82 (70-105) 01/01/18 16:26 Hemoglobin A1c < 4.2 % (4-6) 12/15/17 17:16 Lactic Acid 1.40 mmol/L (0.7-2.0) 12/15/17 17:16 Calcium 8.4 mg/dL (8.4-10.2) 01/01/18 03:26 Phosphorus 7.50 mg/dL (2.5-4.5) H 12/28/17 02:42 Iron 37 ug/dL (49-181) L 12/16/17 00:24 TIBC 416 mcg/dL (250-450) 12/16/17 00:24 Ferritin 16.1 ng/mL (13.0-400.0) 12/16/17 00:24 Total Bilirubin 0.20 mg/dL (0.1-1.2) 12/30/17 01:27 AST 20 units/L (5-40) 12/30/17 01:27 ALT 15 units/L (7-56) 12/30/17 01:27 Alkaline Phosphatase 77 units/L (35-129) 12/30/17 01:27 Total Creatine Kinase 736 units/L (55-170) H 12/15/17 17:16 CK-MB (CK-2) 7.7 ng/mL (0.0-4.0) H 12/15/17 17:16 CK-MB (CK-2) Rel Index 1.0 (0-4) 12/15/17 17:16 Troponin T 0.067 ng/mL (0.00-0.029) H 12/15/17 17:16 NT-Pro-B Natriuret Pep 28368 pg/mL (0-900) H 12/15/17 17:16 Total Protein 7.0 g/dL (6.3-8.2) 12/30/17 01:27 Albumin 3.4 g/dL (3.9-5) L 12/30/17 01:27 Albumin/Globulin Ratio 0.9 % 12/30/17 01:27 Triglycerides 440 mg/dL (2-149) H 12/19/17 05:10 Cholesterol 163 mg/dL (50-199) 12/15/17 17:16 LDL Cholesterol Direct 102 mg/dL (50-130) 12/15/17 17:16 HDL Cholesterol 29 mg/dL (40-59) L 12/15/17 17:16 Cholesterol/HDL Ratio 5.62 % 12/15/17 17:16 Vitamin B12 221.6 pg/mL (211-911) 12/16/17 00:24 Folate 14.63 ng/mL (7.3-26.0) 12/16/17 00:24 Urine Color Yellow (Yellow) 12/16/17 12:05 Urine Turbidity Cloudy (Clear) 12/16/17 12:05 Urine pH 5.0 (5.0-7.0) 12/16/17 12:05 Ur Specific Agency 1.012 (1.003-1.030) 12/16/17 12:05 Urine Protein >500 mg/dL (Negative) 12/16/17 12:05 Urine Glucose (UA) 50 mg/dL (Negative) 12/16/17 12:05 Urine Ketones Neg mg/dL (Negative) 12/16/17 12:05 Urine Blood Mod (Negative) 12/16/17 12:05 Urine Nitrite Neg (Negative) 12/16/17 12:05 Urine Bilirubin Neg (Negative) 12/16/17 12:05 Urine Urobilinogen < 2.0 mg/dL (<2.0) 12/16/17 12:05 Ur Leukocyte Esterase Lg (Negative) 12/16/17 12:05 Urine WBC (Auto) > 182.0 /HPF (0.0-6.0) H 12/16/17 12:05 Urine RBC (Auto) 30.0 /HPF (0.0-6.0) 12/16/17 12:05 U Epithel Cells (Auto) 1.0 /HPF (0-13.0) 12/16/17 12:05 Urine Bacteria (Auto) 1+ /HPF (Negative) 12/16/17 12:05 Urine WBC Clumps 3+ /HPF 12/16/17 12:05 Urine Mucus 1+ /HPF 12/16/17 12:05 Urine Creatinine 81.7 mg/dL (0.1-20.0) H 12/16/17 12:05 Urine Sodium 62 mmol/L 12/16/17 12:05 Urine Total Protein 493 mg/dL (5-11.8) H 12/16/17 12:05 Urine Opiates Screen Presumptive negative 12/16/17 12:05 Urine Methadone Screen Presumptive negative 12/16/17 12:05 Acetaminophen < 5.0 ug/mL (10.0-30.0) L 12/30/17 12:50 Ur Barbiturates Screen Presumptive negative 12/16/17 12:05 Ur Phencyclidine Scrn Presumptive negative 12/16/17 12:05 Ur Amphetamines Screen Presumptive negative 12/16/17 12:05 U Benzodiazepines Scrn Presumptive positive 12/16/17 12:05 Urine Cocaine Screen Presumptive negative 12/16/17 12:05 U Marijuana (THC) Screen Presumptive negative 12/16/17 12:05 Drugs of Abuse Note Disclamer 12/16/17 12:05 Hepatitis A IgM Ab Nonreactive (NonReactive) 12/16/17 04:47 Hep Bs Antigen Non-reactive (Negative) 12/16/17 04:47 Hep B Core IgM Ab Non-reactive (NonReactive) 12/16/17 04:47 Hepatitis C Antibody Non-reactive (NonReactive) 12/16/17 04:47 Blood Type A POSITIVE 12/15/17 17:45 Antibody Screen Negative 12/15/17 17:45 Crossmatch See Detail 12/15/17 17:45
[2018-01-01] MEDS ORDERED: GOLYTELY PO ONE (18:00)
[2018-01-01] MEDS: PROVENTIL IH PRN (19:36)
[2018-01-02] MEDS: FLAGYL 500 MG/100 ML 500 MG/100 ML BAG IV SCH ×3 (05:31→22:47)
[2018-01-02] MEDS: APRESOLINE IV PRN (07:47)
--- NOTE | 2018-01-02 07:54 | Progress Note ---
Assessment and Plan 67-year-old male from [place] admitted with acute respiratory failure, acute renal failure, acidosis requiring mechanical ventilation, ICU stay and hemodialysis now with: 1) Leukocytosis:. Blood cultures remain negative. Currently on Flagyl, D5. 2) Acute renal failure: Requiring hemodialysis. Renally dose antibiotics. Nephrology following. 3) Acute anemia: No overt signs of bleeding. GI following. 4) Acute right lower extremity DVT: On anticoagulation with heparin. 5) Abdominal distention. KUB shows ileus vs partial small bowel obstruction. Colonoscopy scheduled for toda, Patient continues to refuse. GI following. - Recommendations: Continue IV Flagyl 500 mg every 8 hours, D5 of 7, Flagyl end date 01-04-18, can converted to PO if patient is discharged. ID will be signing off [facility] M: [phone] O:[phone] Subjective Date of service: 01/02/18 Principal diagnosis: Leucocytosis Interval history: Patient was in HD. Patient stated that he was doing ok. He denied diarrhea and pain. Current Antimicrobials: Flagyl, D5 Objective - Exam Narrative Exam: Constitutional: Alert, cooperative. No acute distress Head, Ears, Nose: Normocephalic, atraumatic. External ears, nose normal Eyes: Conjunctivae/corneas clear. No icterus. No ptosis. Neck: Supple, no meningeal signs Oral: edentulous mainly, no thrush. Cardiovascular: S1, S2 normal. Respiratory: Good air entry, bilaterally GI: Soft, mildly distended, non-tender; bowel sounds normal. No peritoneal signs Musculoskeletal: No pedal edema, no cyanosis. Hem/Lymphatic: No palpable cervical or supraclavicular nodes. No lymphangitis Neurological: Awake, alert, oriented. No gross abnormality. Lines: Right subclavian HD cath, c/d/i - Constitutional Vitals: Vital Signs Temp Pulse Resp BP Pulse Ox 98.7 F 72 18 163/90 97 01/02/18 07:35 01/02/18 07:47 01/02/18 07:35 01/02/18 07:47 01/02/18 07:35 Temperature -Last 24 Hours Temperature 98.7 F Temperature 98.4 F Temperature 98.6 F Temperature 97.3 F - Labs CBC & Chem 7: 01/02/18 09:23 10/02/18 09:23 Labs: Abnormal lab results 01/01/18 01/02/18 Range/Units 22:53 07:36 Heparin Anti-Xa Level 0.10 L (0.3-0.7) U.I./ml POC Glucose 112 H (70-105)
[2018-01-02] MEDS: COREG PO SCH ×2 (09:12→22:48)
--- NOTE | 2018-01-02 09:13 | Progress Note ---
Assessment and Plan Acute respiratory failure now extubated Acute on chronic renal failure s/p urgent dialysis Anemia s/p transfusion of PRBCs Acute systolic heart failure EF 40-45% by echo Hypertension Acute right iliac DVT on IV heparin Ileus vs partial small bowel obstruction Conservative cardiac management. Subjective Date of service: 01/02/18 Principal diagnosis: Leucocytosis Interval history: Patient is undergoing dialysis. No cardiac complaints. Objective Vital Signs Temp Pulse Pulse Pulse Resp Resp BP 01/02/18 08:32 93 H 01/02/18 07:58 98 H 01/02/18 07:47 72 163/90 01/02/18 07:35 98.7 F 72 18 163/90 01/02/18 02:25 98.4 F 75 18 143/79 01/01/18 22:00 18 01/01/18 20:13 98.6 F 77 18 151/83 01/01/18 20:00 77 01/01/18 19:38 01/01/18 19:36 74 18 01/01/18 14:08 97.3 F L 78 18 143/72 01/01/18 13:52 72 18 01/01/18 13:35 70 18 01/01/18 09:43 72 20 BP Pulse Ox 01/02/18 08:32 129/71 01/02/18 07:58 01/02/18 07:47 01/02/18 07:35 97 01/02/18 02:25 98 01/01/18 22:00 98 01/01/18 20:13 99 01/01/18 20:00 01/01/18 19:38 97 01/01/18 19:36 01/01/18 14:08 97 01/01/18 13:52 01/01/18 13:35 01/01/18 09:43 99 - Physical Examination General: No Apparent Distress HEENT: Positive: PERRL Cardiac: Positive: Reg Rate and Rhythm Neuro: Positive: Grossly Intact Extremities: Absent: edema - Allied health notes Allied health notes reviewed: nursing
[2018-01-02 09:34] LABS: Basophils # (Auto) 0.1 K/mm3 (0.0-0.1); Eosinophils # (Auto) 0.2 K/mm3 (0.0-0.4); Eosinophils % (Auto) 2.3 % (0.0-4.3); Hemoglobin 8.7 gm/dl (11.8-15.2); Lymphocytes % (Auto) 10.3 % (13.4-35.0); Mean Corpuscular HGB Conc 32 % (32-34); Mean Corpuscular Hemoglobin 26 pg (28-32); Mean Corpuscular Volume 81 fl (84-94); Monocytes # (Auto) 0.5 K/mm3 (0.0-0.8); Monocytes % (Auto) 5.4 % (0.0-7.3); Platelet Count 59 K/mm3 (140-440); Red Blood Count 3.34 M/mm3 (3.65-5.03)
[2018-01-02 09:56] LABS: Calcium 8.3 mg/dL (8.4-10.2)
--- NOTE | 2018-01-02 10:23 | Progress Note ---
Assessment and Plan - Patient Problems (1) Acute renal failure (ARF) Current Visit: Yes Status: Acute Plan to address problem: Patient presumably has chronic kidney disease given the echogenic kidneys and nephrotic range proteinuria. Acute kidney injury probably acute tubular necrosis versus acute on chronic cardiorenal syndrome. S/p permacath placement. Arrangements for outpatient dialysis ongoing. cont HD on a Monday, and Monday schedule. (2) Acute heart failure Current Visit: Yes Status: Acute Plan to address problem: Volume status improved with dialysis. Ejection fraction 40-45% on 2-D echo (3) Acute respiratory failure with hypoxia Current Visit: Yes Status: Acute Plan to address problem: Continue monitoring by pulmonary (4) Anemia Current Visit: Yes Status: Acute Plan to address problem: Hemoglobin improved with packed Red blood cell transfusions. start EPO with HD. Follow-up hemoglobin (5) Hypertensive chronic kidney disease with stage 5 chronic kidney disease or end stage renal disease Current Visit: Yes Status: Acute Plan to address problem: Follow-up blood pressure on current medications Subjective Date of service: 01/02/18 Principal diagnosis: Leucocytosis Interval history: Pt seen and examined during HD, tolerating procedure well, no acute complaints. Objective - Vital Signs Vital signs: Vital Signs - 12hr 01/02/18 01/02/18 01/02/18 02:25 07:35 07:47 Temperature 98.4 F 98.7 F Pulse Rate 75 72 72 Pulse Rate [ Right Radial] Respiratory 18 18 Rate Blood Pressure 143/79 163/90 163/90 Blood Pressure [Right] O2 Sat by Pulse 98 97 Oximetry 01/02/18 01/02/18 01/02/18 07:58 08:32 09:23 Temperature Pulse Rate 98 H 93 H Pulse Rate [ 92 H Right Radial] Respiratory 18 Rate Blood Pressure Blood Pressure 129/71 [Right] O2 Sat by Pulse 97 Oximetry - General Appearance General appearance: well-developed, well-nourished, appears stated age EENT: ATNC, PERRL, mucous membranes moist Neck: no JVD Respiratory: Present: Clear to Ascultation Cardiology: regular, S1S2 Gastrointestinal: normoactive bowel sounds Integumentary: no rash, other (no edema ) Neurologic: no focal deficit, alert and oriented x3, strength 5/5, CN 3-12 intact Psychiatric: mood/affect appropriate, cooperative - Lab 01/02/18 09:23 10/02/18 09:23 Most recent lab results Calcium 8.3 mg/dL (8.4-10.2) L 01/02/18 09:23 Phosphorus 7.50 mg/dL (2.5-4.5) H 12/28/17 02:42 Urine Creatinine 81.7 mg/dL (0.1-20.0) H 12/16/17 12:05 Urine Sodium 62 mmol/L 12/16/17 12:05 Urine Total Protein 493 mg/dL (5-11.8) H 12/16/17 12:05
[2018-01-02] MEDS ORDERED: PROCRIT SUB-Q SCH (11:00)
--- NOTE | 2018-01-02 11:43 | Event Note ---
Date: 01/02/18 Spoke with nursing this am. Patient continues to refuse to take all of colon prep. H/H w/o signs of bleeding. Will schedule for EGD/flex sig today.
--- NOTE | 2018-01-02 14:42 | Anesthesia Consultation ---
Anesthesia Consult and Med Hx Date of service: 01/02/18 - Airway Anesthetic Teeth Evaluation: Poor, Edentulous (upper) Mental/Hyoid Distance: Adequate Mallampati Class: Class III Intubation Access Assessment: Possibly Difficult - Pulmonary Exam CTA: Yes - Cardiac Exam Cardiac Exam: RRR - Pre-Operative Health Status ASA Pre-Surgery Classification: ASA3 Proposed Anesthetic Plan: MAC - Pre-Anesthesia Comment Pre-Anesthesia Comments: EF 40-45% - Pulmonary SOB: Yes (resolved) Hx Pneumonia: Yes - Endocrine Hx Renal Disease: Yes (Acute renal failure this admission, Dialysis via permacath) Hx End Stage Renal Disease: Yes (stage V) - Hematic Hx Anemia: Yes (blood transfusion)
--- NOTE | 2018-01-02 14:42 | Anesthesia Day of Surgery ---
Anesthesia Day of Surgery - Day of Surgery Patient Examined: Yes Patient H&P Reviewed: Yes Patient is NPO: Yes
[2018-01-02] MEDS ORDERED: NACL 0.9% 1000 ML 1,000 ML IV SCH (15:00)
[2018-01-02] MEDS ORDERED: DIPRIVAN 10 MG/ML IV ONE (15:27)
[2018-01-02] MEDS ORDERED: WATER FOR IRRIG STERILE IR ONE (15:35)
--- NOTE | 2018-01-02 15:47 | Post Operative Note ---
Pre-op diagnosis: gi bleed Post-op diagnosis: same Findings: EGD: hiatal hernia - Grade II esophagitis distal esophagus - moderate scattered gastritis w/ ulceration body/antrum stomach (bx's) - few small (4-6 mm) ulcers w/o active bleeding stigmata 2nd portion duodenum ( bx's) Procedure: EGD Anesthesia: MAC Surgeon: LAXMI CHANCE Estimated blood loss: none Pathology: list Specimen disposition: to lab Condition: stable Disposition: floor
--- NOTE | 2018-01-02 16:13 | Operative Report ---
PROCEDURE: EGD with cold biopsies. INDICATION: 1. Anemia. 2. Gastrointestinal bleed. 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 COMPLICATIONS: None. DESCRIPTION OF PROCEDURE: The patient brought to procedure suite. The patient had the procedure discussed with him at length. All risks, complications, and benefits discussed, after which the patient signed for the procedure to be performed. The patient was placed in left lateral decubitus position. Mouth block placed in the patient's oral cavity. After adequate sedation medication as above, endoscope placed in the mouth and brought to the level of the second portion of duodenum. Retroflexion view performed. The patient's vital signs remained stable throughout the procedure. FINDINGS: There was noted to be grade 2 esophagitis in the distal esophagus, 40-42 cm from the gums. Biopsies were taken and sent to pathology. A 2 cm hiatal hernia at GE junction. The esophagus otherwise appeared to be normal. There was moderate scattered gastric body and antrum gastritis with small erosions. Biopsies were taken of the antrum and sent to pathology. The remaining stomach otherwise appeared to be normal. There were few approximately 6-7 small 4-6 mm shallow linear small ulcers noted in the second portion of duodenum. No significant bleeding stigmata was noted. Biopsies were taken of the second portion and sent for pathology. The remaining duodenum otherwise appeared to be normal. Retroflexion view performed in the stomach showed no other pathology other than noted above. The patient tolerated the procedure well. No complications during the procedure. IMPRESSION: 1. Esophagitis, biopsy performed. 2. Hiatal hernia. 3. Ulcerations and small ulcers in the gastric body and antrum and biopsies performed. 4. Otherwise, normal stomach. 5. Small ulcers in the second portion of duodenum, biopsies performed. 6. Otherwise, normal duodenum. RECOMMENDATIONS: 1. Follow up biopsy results. 2. If stool for H. pylori positive, we will treat. 3. PPI daily. 4. Given the fact the patient defers colonoscopy and H and H stable, okay to discharge from a GI standpoint. JOB# [id number] CAB/NTS
--- NOTE | 2018-01-02 16:34 | Progress Note ---
Assessment and Plan Severe anemia, probably sec to CKD/ESRD -s/p blood transfusion with 4 units of PRBC -s/p CT abdomen and pelvis to assess for acute bleed, but no active source per GI -stable H&H post transfusion - s/p EGD today, colonoscopy outpt: no active bleeding with gastritis BALDO 2/2 acute on chronic cardio renal syndrome, ischemic ATN in the setting of severe anemia and sepsis -H/O CKD suspected -on HD since admission -Neprology following - s/p perm cath placed Paralytic ilius vs Partial SBO, resolved - seen on abdominal xry on 12/21/17 - having regular BM - Consulted surgery, cont to monitor clinically Right LE DVT -on heparin drip, will change to eliquis - monitor h and h Acute respiratory failure with hypoxia -likely due to pulmonary edema from renal failure - required intubation with MV - Off steroids - ABG improved - pulmonology following - s/p extubation 12/21/17 - cont nebs and supplemental O2 Sepsis likely from PNA, resolved -treated with IV abx, -blood cultures negative so far Bilateral pneumonia -treated with abx -blood and sputum culture neg Hyperkalemia, now hypokalemia -will monitor level and replete as needed Elevated d-dimer -VQ scan pending, on heparin drip now Acute exacerbation of CHF (congestive heart failure), suspected -2d ECHO report showed EF 40-45% -cont volume removal by increased Ultrafiltration Elevated troponin probably secondary to demand ischemia -Cardiology following HTN -Coreg and PRN hydralazine started -monitor and adjust med as needed DVT prophylaxis on Heparin and GI prophylaxis on Protonix Disposition: Patient remains in critical condition, continue current management Brief history: This is a 67 yo M with unknown past medical history, who was brought in to ER by EMS for progressive shortness of breath, associated with productive cough. As per EMS reports, Pt was placed on 100% nonrebreather and brought to the ER. CXR showed evidence of cardiomegaly and pulmonary edema, and since pt developed worsening respiratory failure with hypercapnia/hypoxia pt required intubation. Labs showed elevated WBC > 17, severe anemia with Hb as low as 4.9, elevated BUN/Cr at 76/7.1 mg/dl along with hyperkalemia and metabolic acidosis. He was transfused and vascath placed for HD per renal. Hospitalist Physical exam: GENERAL: elderly male, NAD HEENT: Normocephalic. Atraumatic. No conjunctival congestion or icterus. Patient has moist mucous membranes. NECK: Supple. Trachea midline. CHEST/LUNGS: Clear to auscultated bilaterally, HEART/CARDIOVASCULAR: Regular in rate and rhythm. S1 and S2 positive. ABDOMEN: Abdomen nondistended, nontender. Patient has normal bowel sounds. SKIN: There is no rash. Warm and dry. NEURO: no focal deficit MUSCULOSKELETAL: No joint effusion or tenderness. EXTRIMITY: No edema, no cyanosis or clubbing. PSYCH: cooperative Subjective Date of service: 01/02/18 Principal diagnosis: Leucocytosis Interval history: Patient seen and examined. Medical records and medication list reviewed. s/p EGd today Objective - Constitutional Vitals: Vital Signs - 12hr 01/02/18 01/02/18 01/02/18 07:35 07:47 07:58 Temperature 98.7 F Pulse Rate 72 72 98 H Pulse Rate [ Right Radial] Respiratory 18 Rate Blood Pressure 163/90 163/90 Blood Pressure [Right] O2 Sat by Pulse 97 Oximetry 01/02/18 01/02/18 01/02/18 08:32 08:50 09:00 Temperature 98.1 F Pulse Rate 93 H 94 H 95 H Pulse Rate [ Right Radial] Respiratory 16 Rate Blood Pressure 176/89 149/78 Blood Pressure 129/71 [Right] O2 Sat by Pulse Oximetry 01/02/18 01/02/18 01/02/18 09:15 09:23 09:30 Temperature Pulse Rate 90 94 H Pulse Rate [ 92 H Right Radial] Respiratory 18 Rate Blood Pressure 144/84 170/89 Blood Pressure [Right] O2 Sat by Pulse 97 Oximetry 01/02/18 01/02/18 01/02/18 09:45 10:00 10:15 Temperature Pulse Rate 100 H 104 H 100 H Pulse Rate [ Right Radial] Respiratory Rate Blood Pressure 122/70 128/70 84/57 Blood Pressure [Right] O2 Sat by Pulse Oximetry 01/02/18 01/02/18 01/02/18 10:30 10:45 11:00 Temperature Pulse Rate 99 H 101 H 104 H Pulse Rate [ Right Radial] Respiratory Rate Blood Pressure 114/53 143/78 139/80 Blood Pressure [Right] O2 Sat by Pulse Oximetry 01/02/18 01/02/18 01/02/18 11:15 11:30 11:40 Temperature Pulse Rate 100 H 104 H 111 H Pulse Rate [ Right Radial] Respiratory Rate Blood Pressure 138/63 145/76 131/74 Blood Pressure [Right] O2 Sat by Pulse Oximetry 01/02/18 01/02/18 01/02/18 12:00 12:15 12:30 Temperature Pulse Rate 104 H 111 H 104 H Pulse Rate [ Right Radial] Respiratory Rate Blood Pressure 127/72 135/70 145/80 Blood Pressure [Right] O2 Sat by Pulse Oximetry 01/02/18 01/02/18 01/02/18 12:45 13:30 14:20 Temperature 98.1 F 97.8 F 98.5 F Pulse Rate 115 H 106 H 107 H Pulse Rate [ Right Radial] Respiratory 20 18 15 Rate Blood Pressure 155/80 129/83 125/74 Blood Pressure [Right] O2 Sat by Pulse 93 94 Oximetry 01/02/18 15:46 Temperature 97.4 F L Pulse Rate 86 Pulse Rate [ Right Radial] Respiratory 14 Rate Blood Pressure 97/53 Blood Pressure [Right] O2 Sat by Pulse 100 Oximetry - Labs CBC & Chem 7: 01/02/18 09:23 01/02/18 09:23 Labs: Abnormal lab results 01/01/18 01/02/18 01/02/18 Range/Units 22:53 07:36 09:23 RBC (3.65-5.03) M/mm3 Hgb (11.8-15.2) gm/dl Hct (35.5-45.6) % MCV (84-94) fl MCH (28-32) pg RDW (13.2-15.2) % Plt Count (140-440) K/mm3 Lymph % (Auto) (13.4-35.0) % Lymph # (1.2-5.4) K/mm3 Seg Neutrophils % (40.0-70.0) % Seg Neutrophils # (1.8-7.7) K/mm3 Heparin Anti-Xa Level 0.10 L < 0.10 L (0.3-0.7) U.I./ml Potassium (3.6-5.0) mmol/L BUN (9-20) mg/dL Creatinine (0.8-1.5) mg/dL Glucose (75-100) mg/dL POC Glucose 112 H (70-105) Calcium (8.4-10.2) mg/dL 01/02/18 01/02/18 Range/Units 09:23 09:23 RBC 3.34 L (3.65-5.03) M/mm3 Hgb 8.7 L (11.8-15.2) gm/dl Hct 27.0 L (35.5-45.6) % MCV 81 L (84-94) fl MCH 26 L (28-32) pg RDW 20.0 H (13.2-15.2) % Plt Count 59 L (140-440) K/mm3 Lymph % (Auto) 10.3 L (13.4-35.0) % Lymph # 1.0 L (1.2-5.4) K/mm3 Seg Neutrophils % 81.0 H (40.0-70.0) % Seg Neutrophils # 8.1 H (1.8-7.7) K/mm3 Heparin Anti-Xa Level (0.3-0.7) U.I./ml Potassium 3.0 L (3.6-5.0) mmol/L BUN 44 H (9-20) mg/dL Creatinine 5.7 H (0.8-1.5) mg/dL Glucose 141 H (75-100) mg/dL POC Glucose (70-105) Calcium 8.3 L (8.4-10.2) mg/dL
[2018-01-02] MEDS: ELIQUIS PO SCH (22:48)
[2018-01-03] MEDS: FLAGYL 500 MG/100 ML 500 MG/100 ML BAG IV SCH (05:59)
--- NOTE | 2018-01-03 08:42 | Discharge Summary ---
Providers - Providers Date of Admission: 12/15/17 18:47 Date of discharge: 01/03/18 Attending physician: PAOLA JAY 12/15/17 21:10 Consult to Physician [CONS] Routine Comment: Consulting Provider: DOROTHEA TOBAR Physician Instructions: Reason For Exam: BALDO 12/15/17 21:14 Consult to Physician [CONS] Routine Comment: Consulting Provider: AURORA CHERRY Physician Instructions: Reason For Exam: CHF 12/16/17 17:32 Consult to Dietitian/Nutrition [CONS] Routine Physician Instructions: Assess nutrtn needs, initiate, modify, manage TF Reason For Exam: Reason for Consult: Write/Manage Tube Feeding Reason for Consult: Write/Manage Tube Feeding 12/18/17 09:35 Consult to Case Management [CONS] Routine Services Needed at Discharge: Other Occupational Therapy Notified:: yes Phone number called:: talk Was contact made?: Yes If yes, spoke with:: Edda Time called:: 09:38 Comment:: arrange outpatient dialysis at [facility] dialysis 12/19/17 15:47 Physical Therapy Evaluation and Treat [CONS] Routine Comment: Reason For Exam: Debility 12/19/17 15:48 Occupational Therapy Evaluate and Treat [CONS] Routine Comment: Reason For Exam: Debility 12/24/17 13:11 Speech Therapy Evaluation and Treat [CONS] Routine Reason For Exam: dysphagia 12/25/17 12:06 Consult to Physician [CONS] Routine Comment: DR. ZAY WALDRON/DONALD Consulting Provider: ARMINDA MANTILLA Physician Instructions: Reason For Exam: SBO 12/29/17 07:47 Consult to Physician [CONS] Routine Comment: spoke to cruzito Consulting Provider: SANJAY WALKER Physician Instructions: sepsis Reason For Exam: sepsis, worsening wbc 12/29/17 12:43 psychiatry consult [Consult to Mental Health] [CONS] Routine Reason For Exam: suspected Depression Place consult to:: the psych pre sales technical consultant Notified:: YES Phone number called:: [phone] Was contact made?: Yes If yes, spoke with:: GIOVANY Anderson called:: 13:56 Comment:: DONLAD Primary care physician: THERMODYNAMICS TEACHER Hospitalization Condition: Critical Hospital course: Brief history: This is a 67 yo M with unknown past medical history, who was brought in to ER by EMS for progressive shortness of breath, associated with productive cough. As per EMS reports, Pt was placed on 100% nonrebreather and brought to the ER. CXR showed evidence of cardiomegaly and pulmonary edema, and since pt developed worsening respiratory failure with hypercapnia/hypoxia pt required intubation. Labs showed elevated WBC > 17, severe anemia with Hb as low as 4.9, elevated BUN/Cr at 76/7.1 mg/dl along with hyperkalemia and metabolic acidosis. He was transfused and vascath placed for HD per renal. Discharge diagnosis and management; Severe anemia, probably sec to CKD/ESRD -s/p blood transfusion with 4 units of PRBC -s/p CT abdomen and pelvis to assess for acute bleed, but no active source per GI -stable H&H post transfusion - s/p EGD today, colonoscopy outpt: no active bleeding with gastritis BALDO 2/2 acute on chronic cardio renal syndrome, ischemic ATN in the setting of severe anemia and sepsis -H/O CKD suspected -on HD since admission -Neprology following - s/p perm cath placed Paralytic ilius vs Partial SBO, resolved - seen on abdominal xry on 12/21/17 - having regular BM - Consulted surgery, cont to monitor clinically Right LE DVT -on heparin drip, will change to eliquis - monitor h and h Acute respiratory failure with hypoxia -likely due to pulmonary edema from renal failure - required intubation with MV - Off steroids - ABG improved - pulmonology following - s/p extubation 12/21/17 - cont nebs and supplemental O2 Sepsis likely from PNA, resolved -treated with IV abx, -blood cultures negative so far Bilateral pneumonia -treated with abx -blood and sputum culture neg Hyperkalemia, now hypokalemia -will monitor level and replete as needed Elevated d-dimer -VQ scan pending, on heparin drip now Acute exacerbation of CHF (congestive heart failure), suspected -2d ECHO report showed EF 40-45% -cont volume removal by increased Ultrafiltration Elevated troponin probably secondary to demand ischemia -Cardiology following HTN -Coreg and PRN hydralazine started -monitor and adjust med as needed DVT prophylaxis on Heparin and GI prophylaxis on Protonix Disposition: home with Hospitalist Physical exam: GENERAL: elderly male, NAD HEENT: Normocephalic. Atraumatic. No conjunctival congestion or icterus. Patient has moist mucous membranes. NECK: Supple. Trachea midline. CHEST/LUNGS: Clear to auscultated bilaterally, HEART/CARDIOVASCULAR: Regular in rate and rhythm. S1 and S2 positive. ABDOMEN: Abdomen nondistended, nontender. Patient has normal bowel sounds. SKIN: There is no rash. Warm and dry. NEURO: no focal deficit MUSCULOSKELETAL: No joint effusion or tenderness. EXTRIMITY: No edema, no cyanosis or clubbing. PSYCH: cooperative Disposition: [id number] HOME UNDER HOME [facility] Time spent for discharge: 34 minutes Core Measure Documentation - Palliative Care Palliative Care/ Comfort Measures: Not Applicable - Core Measures Any of the following diagnoses?: none Exam - Constitutional Vitals: Temp Pulse Resp BP Pulse Ox 99.2 F 84 18 133/77 93 01/03/18 07:30 01/03/18 07:47 01/03/18 07:30 01/03/18 07:30 01/03/18 07:30 Plan Activity: advance as tolerated Weight Bearing Status: Weight Bear as Tolerated Diet: renal Follow up with: PRIMARY CAREMD [Primary Care Provider] - 7 Days Prescriptions: Apixaban [Eliquis] 10 mg PO Q12HR #12 tablet Apixaban [Eliquis] 5 mg PO BID #60 tab.ds.pk Carvedilol [Coreg] 6.25 mg PO BID #60 tablet
--- NOTE | 2018-01-03 08:54 | Progress Note ---
Assessment and Plan Acute respiratory failure now extubated Acute on chronic renal failure s/p urgent dialysis Anemia s/p transfusion of PRBCs Acute systolic heart failure EF 40-45% by echo Hypertension Acute right iliac DVT oneliquis for oral anticoagulation Ileus vs partial small bowel obstruction Conservative cardiac management. Subjective Date of service: 01/03/18 Principal diagnosis: Leucocytosis Interval history: No cardiac events overnight reported. For planned discharge home today. Objective Vital Signs Temp Pulse Pulse Resp BP Pulse Ox 01/03/18 07:47 84 01/03/18 07:30 99.2 F 89 18 133/77 93 01/03/18 02:56 98.8 F 84 18 126/71 94 01/03/18 00:07 95 01/02/18 22:48 104 H 132/74 01/02/18 22:00 90 20 98 01/02/18 21:09 100.0 F H 104 H 18 132/74 93 01/02/18 20:00 97 H 01/02/18 16:16 97 H 20 139/79 95 01/02/18 16:01 92 H 20 122/69 95 01/02/18 15:46 97.4 F L 86 14 97/53 100 01/02/18 14:20 98.5 F 107 H 15 125/74 94 01/02/18 13:30 97.8 F 106 H 18 129/83 93 01/02/18 12:45 98.1 F 115 H 20 155/80 01/02/18 12:30 104 H 145/80 01/02/18 12:15 111 H 135/70 01/02/18 12:00 104 H 127/72 01/02/18 11:40 111 H 131/74 01/02/18 11:30 104 H 145/76 01/02/18 11:15 100 H 138/63 01/02/18 11:00 104 H 139/80 01/02/18 10:45 101 H 143/78 01/02/18 10:30 99 H 114/53 01/02/18 10:15 100 H 84/57 01/02/18 10:00 104 H 128/70 01/02/18 09:45 100 H 122/70 01/02/18 09:30 94 H 170/89 01/02/18 09:23 92 H 18 97 10/02/18 09:15 90 144/84 01/02/18 09:00 95 H 149/78 - Physical Examination General: No Apparent Distress HEENT: Positive: PERRL Cardiac: Positive: Reg Rate and Rhythm Neuro: Positive: Grossly Intact Extremities: Absent: edema - Labs and Meds CBC 01/02/18 Range/Units 09:23 WBC 10.1 (4.5-11.0) K/mm3 RBC 3.34 L (3.65-5.03) M/mm3 Hgb 8.7 L (11.8-15.2) gm/dl Hct 27.0 L (35.5-45.6) % Plt Count 59 L (140-440) K/mm3 Lymph # 1.0 L (1.2-5.4) K/mm3 Gem # 0.5 (0.0-0.8) K/mm3 Eos # 0.2 (0.0-0.4) K/mm3 Baso # 0.1 (0.0-0.1) K/mm3 Comprehensive Metabolic Panel 01/02/18 Range/Units 09:23 Sodium 140 (137-145) mmol/L Potassium 3.0 L (3.6-5.0) mmol/L Chloride 99.8 (98-107) mmol/L Carbon Dioxide 22 (22-30) mmol/L BUN 44 H (9-20) mg/dL Creatinine 5.7 H (0.8-1.5) mg/dL Glucose 141 H (75-100) mg/dL Calcium 8.3 L (8.4-10.2) mg/dL - Allied health notes Allied health notes reviewed: nursing
[2018-01-03 09:11] LABS: Hematocrit 29.2 % (35.5-45.6); Hemoglobin 9.4 gm/dl (11.8-15.2); Mean Corpuscular HGB Conc 32 % (32-34); Mean Corpuscular Hemoglobin 27 pg (28-32); Mean Corpuscular Volume 82 fl (84-94); Platelet Count 100 K/mm3 (140-440); Red Blood Count 3.56 M/mm3 (3.65-5.03); Red Cell Distribution Width 19.6 % (13.2-15.2)
[2018-01-03] MEDS: ELIQUIS PO SCH (09:22)
[2018-01-03] MEDS: COREG PO SCH (09:24)
[2018-01-03 09:26] VITALS: BP 120/62
[2018-01-03] MEDS ORDERED: K-DUR PO ONE (11:07)
--- NOTE | 2018-01-03 11:16 | Progress Note ---
Assessment and Plan - Patient Problems (1) Acute renal failure (ARF) Current Visit: Yes Status: Acute Plan to address problem: Patient presumably has chronic kidney disease given the echogenic kidneys and nephrotic range proteinuria. Acute kidney injury probably acute tubular necrosis versus acute on chronic cardiorenal syndrome. cont HD on a Monday, and Monday schedule. stable for discharge once outpatient HD arranged. (2) Acute heart failure Current Visit: Yes Status: Acute Plan to address problem: Volume status improved with dialysis. Ejection fraction 40-45% on 2-D echo (3) Acute respiratory failure with hypoxia Current Visit: Yes Status: Acute Plan to address problem: Continue monitoring by pulmonary (4) Anemia Current Visit: Yes Status: Acute Plan to address problem: Hemoglobin improved with packed Red blood cell transfusions. start EPO with HD. Follow-up hemoglobin (5) Hypertensive chronic kidney disease with stage 5 chronic kidney disease or end stage renal disease Current Visit: Yes Status: Acute Plan to address problem: Follow-up blood pressure on current medications Subjective Date of service: 01/03/18 Principal diagnosis: Leucocytosis Interval history: Pt awake, alert, in NAD Objective - Vital Signs Vital signs: Vital Signs - 12hr 01/03/18 01/03/18 01/03/18 00:07 02:56 07:30 Temperature 98.8 F 99.2 F Pulse Rate 84 89 Pulse Rate [ Right Radial] Respiratory 18 18 Rate Blood Pressure 126/71 133/77 O2 Sat by Pulse 95 94 93 Oximetry 01/03/18 01/03/18 01/03/18 07:47 09:24 10:00 Temperature Pulse Rate 84 91 H Pulse Rate [ 92 H Right Radial] Respiratory 18 Rate Blood Pressure 120/62 O2 Sat by Pulse 93 Oximetry - General Appearance General appearance: well-developed, well-nourished, appears stated age EENT: ATNC, PERRL, mucous membranes moist Neck: no JVD Respiratory: Present: Clear to Ascultation Cardiology: regular, S1S2 Gastrointestinal: normoactive bowel sounds Integumentary: no rash, other (no edema ) Neurologic: no focal deficit, alert and oriented x3, strength 5/5, CN 3-12 intact Psychiatric: mood/affect appropriate, cooperative - Lab 01/03/18 08:50 01/02/18 09:23 Most recent lab results Calcium 8.3 mg/dL (8.4-10.2) L 10/02/18 09:23 Phosphorus 7.50 mg/dL (2.5-4.5) H 12/28/17 02:42 Urine Creatinine 81.7 mg/dL (0.1-20.0) H 12/16/17 12:05 Urine Sodium 62 mmol/L 12/16/17 12:05 Urine Total Protein 493 mg/dL (5-11.8) H 12/16/17 12:05
== END 2018-01-03 11:45 | disposition home health service (06) | DRG 870 ==
LOC: ED 16:32 → CC1 18:47 → 2B-ACE 12-25 15:58
PROVIDERS: ADMIT Internal Medicine; ATTEND Internal Medicine
PROC: 5A1955Z Respiratory Ventilation, Greater than 96 Consecutive Hours (ICD-10-PCS; principal; 2017-12-15)
PROC: 0BH17EZ Insertion of Endotracheal Airway into Trachea, Via Natural or Artificial Opening (ICD-10-PCS; 2017-12-15)
PROC: 5A09357 Assistance with Respiratory Ventilation, Less than 24 Consecutive Hours, Continuous Positive Airway Pressure (ICD-10-PCS; 2017-12-15)
PROC: 30233N1 Transfusion of Nonautologous Red Blood Cells into Peripheral Vein, Percutaneous Approach (ICD-10-PCS; 2017-12-15)
PROC: 4A033R1 Measurement of Arterial Saturation, Peripheral, Percutaneous Approach (ICD-10-PCS; 2017-12-15)
PROC: 06HY33Z Insertion of Infusion Device into Lower Vein, Percutaneous Approach (ICD-10-PCS; 2017-12-16)
PROC: B54BZZA Ultrasonography of Right Lower Extremity Veins, Guidance (ICD-10-PCS; 2017-12-16)
PROC: 5A1D70Z Performance of Urinary Filtration, Intermittent, Less than 6 Hours Per Day (ICD-10-PCS; 2017-12-16)
PROC: 5A1D70Z Performance of Urinary Filtration, Intermittent, Less than 6 Hours Per Day (ICD-10-PCS; 2017-12-17)
PROC: 5A1D70Z Performance of Urinary Filtration, Intermittent, Less than 6 Hours Per Day (ICD-10-PCS; 2017-12-20)
PROC: 5A1D70Z Performance of Urinary Filtration, Intermittent, Less than 6 Hours Per Day (ICD-10-PCS; 2017-12-21)
PROC: 0JH63XZ Insertion of Tunneled Vascular Access Device into Chest Subcutaneous Tissue and Fascia, Percutaneous Approach (ICD-10-PCS; 2017-12-22)
PROC: 02HV33Z Insertion of Infusion Device into Superior Vena Cava, Percutaneous Approach (ICD-10-PCS; 2017-12-22)
PROC: B548ZZA Ultrasonography of Superior Vena Cava, Guidance (ICD-10-PCS; 2017-12-22)
PROC: B5181ZA Fluoroscopy of Superior Vena Cava using Low Osmolar Contrast, Guidance (ICD-10-PCS; 2017-12-22)
PROC: 5A1D70Z Performance of Urinary Filtration, Intermittent, Less than 6 Hours Per Day (ICD-10-PCS; 2017-12-23)
PROC: 5A1D70Z Performance of Urinary Filtration, Intermittent, Less than 6 Hours Per Day (ICD-10-PCS; 2017-12-26)
PROC: 5A1D70Z Performance of Urinary Filtration, Intermittent, Less than 6 Hours Per Day (ICD-10-PCS; 2017-12-28)
PROC: 5A1D70Z Performance of Urinary Filtration, Intermittent, Less than 6 Hours Per Day (ICD-10-PCS; 2017-12-30)
PROC: 0DB98ZX Excision of Duodenum, Via Natural or Artificial Opening Endoscopic, Diagnostic (ICD-10-PCS; 2018-01-02)
PROC: 0DB78ZX Excision of Stomach, Pylorus, Via Natural or Artificial Opening Endoscopic, Diagnostic (ICD-10-PCS; 2018-01-02)
PROC: 0DB38ZX Excision of Lower Esophagus, Via Natural or Artificial Opening Endoscopic, Diagnostic (ICD-10-PCS; 2018-01-02)
PROC: 0DB48ZX Excision of Esophagogastric Junction, Via Natural or Artificial Opening Endoscopic, Diagnostic (ICD-10-PCS; 2018-01-02)
PROC: 5A1D70Z Performance of Urinary Filtration, Intermittent, Less than 6 Hours Per Day (ICD-10-PCS; 2018-01-02)
DX: A41.9 Sepsis, unspecified organism (principal); N17.0 Acute kidney failure with tubular necrosis; J96.01 Acute respiratory failure with hypoxia; I50.43 Acute on chronic combined systolic (congestive) and diastolic (congestive) heart failure; J18.9 Pneumonia, unspecified organism; N18.6 End stage renal disease; J96.02 Acute respiratory failure with hypercapnia; K25.4 Chronic or unspecified gastric ulcer with hemorrhage; K26.4 Chronic or unspecified duodenal ulcer with hemorrhage; K56.690 Other partial intestinal obstruction; I82.411 Acute embolism and thrombosis of right femoral vein; I13.2 Hypertensive heart and chronic kidney disease with heart failure and with stage 5 chronic kidney disease, or end stage renal disease; I82.421 Acute embolism and thrombosis of right iliac vein; K44.9 Diaphragmatic hernia without obstruction or gangrene; K20.8 Other esophagitis; E87.5 Hyperkalemia; D63.1 Anemia in chronic kidney disease; E11.22 Type 2 diabetes mellitus with diabetic chronic kidney disease; R14.0 Abdominal distension (gaseous)
CPT/HCPCS: 36415; 36430; 36558; 36600; 71045; 74018; 74176; 74250; 76770; 77001; 80048; 80053; 80061; 80074; 80307; 80320; 81001; 82140; 82550; 82553; 82570; 82607; 82728; 82747; 82803; 82805; 82962; 83036; 83550; 83880; 84100; 84156; 84300; 84478; 84484; 85007; 85014; 85018; 85025; 85027; 85049; 85379; 85520; 85610; 85730; 86850; 86900; 86901; 86920; 87040; 87070; 87086; 87205; 88305; 88312; 88342; 93005; 93010; 93306; 93970; 94002; 94003; 94640; 94760; C1750; C9113; G0480; G8987-GO; G8988-GO; G8989-GO; J0360; J0696; J0885; J1630; J1644; J1815; J1940; J2060; J2250; J2270; J2405; J2543; J2704; J2765; J2930; J3010; J3370; J7030; J7040; J7042; J7050; P9016

== ENCOUNTER 2018-09-10 10:01 | Inpatient (IN) | payer MEDICARE ==
--- NOTE | 2018-09-10 10:54 | Emergency Department Report ---
HPI - General Chief Complaint: Nausea/Vomiting/Diarrhea Time Seen by Provider: 09/10/18 10:36 - HPI HPI: 67-year-old male presents to the emergency department via EMS with the complaint of altered mental status, nausea and vomiting. The patient was on his way from [facility] to get dialysis when he started vomiting and had some change in mentation. The patient is currently nonverbal and therefore a poor historian. The patient has a past medical history that includes bipolar disorder, schizophrenia, chronic dysphagia, end-stage renal disease on hemodialysis, GERD, hypertension, congestive heart failure, cardiomyopathy, and there is a listing of previous sepsis and encephalopathy. Per EMS, the patient is usually mostly nonverbal but will usually answer questions if asked, but he is not doing that currently. He has a right-sided dialysis chest catheter and a G-tube. ED Past Medical Hx - Past Medical History Previous Medical History?: Yes Hx Hypertension: Yes (EF 40-45%, Systolic CHF) Hx Congestive Heart Failure: Yes (echo 12/15/17 40-45%) Hx Diabetes: Yes Hx Renal Disease: Yes (Acute renal failure this admission, Dialysis via permacath) Hx Asthma: No Hx COPD: No - Surgical History Past Surgical History?: Yes Additional Surgical History: dialysis port right chest (m/w/f) - Social History Smoking Status: Never Smoker Substance Use Type: None - Medications Home Medications: Home Medications Medication Instructions Recorded Confirmed Last Taken Type Acetaminophen [Acetaminophen TAB] 650 mg PO Q4H PRN #30 tablet 02/16/18 09/10/18 Unknown Rx Escitalopram Oxalate [Lexapro] 5 mg PO QDAY 09/10/18 09/10/18 Unknown History Famotidine [Pepcid] 20 mg PO BID 09/10/18 09/10/18 Unknown History Lactobacillus Acidophilus 1 each PO DAILY 09/10/18 09/10/18 Unknown History [Acidophilus Lactobacilli] Metoprolol [Lopressor] 25 mg PO BID 09/10/18 09/10/18 Unknown History Ondansetron [Zofran Odt] 4 mg PO Q8HR 09/10/18 09/10/18 Unknown History Promethazine [Phenergan] 25 mg PO Q6HR PRN 09/10/18 09/10/18 Unknown History QUEtiapine [SEROquel] 25 mg PO BID 09/10/18 09/10/18 Unknown History hydrOXYzine PAMOATE [Vistaril] 25 mg PO Q8H 09/10/18 09/10/18 Unknown History ED Review of Systems ROS: Stated complaint: VOMITING Other details as noted in HPI Comment: Unobtainable due to pts medical conditions Physical Exam - Physical Exam Vital Signs: Vital Signs 09/10/18 10:24 Temperature 98 F Pulse Rate 98 H Respiratory 21 Rate Blood Pressure 151/85 Blood Pressure 151/85 [Left] O2 Sat by Pulse 98 Oximetry Physical Exam: GENERAL: The patient is well-developed well-nourished. HENT: Normocephalic. Atraumatic. Patient has moist mucous membranes. EYES: Extraocular motions are intact. Pupils equal reactive to light bilaterally. NECK: Supple. Trachea is midline. CHEST/LUNGS: Mild coarse breath sounds. No tachypnea or accessory muscle use.. There is no respiratory distress noted. Right-sided dialysis catheter in place. HEART/CARDIOVASCULAR: Regular. There is no tachycardia. There is no murmur. ABDOMEN: Abdomen is soft, nontender. Patient has normal bowel sounds. There is no abdominal distention. There is a PEG tube in place. SKIN: Skin is warm and dry. NEURO: The patient is awake but confused/altered. Patient is nonverbal. He is not following any commands and does not appear to be redirected. No visible facial asymmetry. Patient appears to be moving all his extremities. MUSCULOSKELETAL: There is no obvious deformity. There is no evidence of acute injury. ED Course Vital Signs 09/10/18 10:24 Temperature 98 F Pulse Rate 98 H Respiratory 21 Rate Blood Pressure 151/85 Blood Pressure 151/85 [Left] O2 Sat by Pulse 98 Oximetry - Consultations Consultation #1: 09/10/18 15:57 I spoke with the high voltage electrician on-call, Dr. Becerra, who will arrange for dialysis to be done today. ED Medical Decision Making - Lab Data Result diagrams: 09/10/18 10:44 09/10/18 12:53 - EKG Data -: EKG Interpreted by Me EKG shows normal: sinus rhythm, axis, intervals, QRS complexes, ST-T waves Rate: normal - EKG Data When compared to previous EKG there are: previous EKG unavailable Interpretation: normal EKG - Radiology Data Radiology results: report reviewed, image reviewed interpreted by me: Chest x-ray does not show any acute process. There are no pleural effusions, obvious pneumonia and there is no pneumothorax. CT HEAD WITHOUT CONTRAST: HISTORY: Altered mental status. TECHNIQUE: Sequential 2.5mm CT images. COMPARISON: 01/31/18. FINDINGS: Cerebral Parenchyma: Mild diffuse volume loss and mild chronic white matter changes are stable. Chronic cortical infarct in the left posterior watershed region measures approximately 2.7 x 2.2 cm in axial plane. Chronic lacunar infarcts are identified in both basal ganglia. No evidence for mass, mass effect or new areas of acute ischemia. Cerebellum: Within normal limits. Brainstem: Within normal limits. Ventricles: Normal. Sella: Normal. Extra-axial spaces: Normal. Basal Cisterns: Normal. Intracranial Hemorrhage: None. Midline Shift: None. Calvarium: Normal. Sinuses: Normal. Mastoid Air Cells: Normal. Visualized Orbits: Normal. IMPRESSION: Volume loss. Chronic white matter changes. Chronic focal infarcts as outlined above. No significant change since 01/31/18. Transcribed By: TTR Dictated By: MARS CORTÉS JR, MD Electronically Authenticated By: MARS CORTÉS JR, MD Signed Date/Time: 09/10/18 1323 - Medical Decision Making This patient presents to the emergency department after he started having some vomiting and altered mental status in route to dialysis. Chest x-ray does not show any significant volume overload or any other acute process. Labs show a mild leukocytosis, renal insufficiency with some uremia. CT of the head did not show any bleed, shift, mass, ischemia or any other acute process. Nephrology was contacted and the patient will be sent for dialysis today. The patient was accepted for admission by the hospitalist, Dr. Best. - Differential Diagnosis CVA, TIA, Encephalopathy, Uremia Critical Care Time: No Critical care attestation.: If time is entered above; I have spent that time in minutes in the direct care of this critically ill patient, excluding procedure time. ED Disposition Clinical Impression: ESRD needing dialysis, Acute encephalopathy Altered mental status Qualifiers: Altered mental status type: unspecified Qualified Code(s): R41.82 - Altered mental status, unspecified Hypertension Qualifiers: Hypertension type: essential hypertension Qualified Code(s): I10 - Essential (primary) hypertension Disposition: OP ADMIT IP TO THIS HOSP Is pt being admited?: Yes Condition: Serious Time of Disposition: 11:00
[2018-09-10 11:07] LABS: Basophils # (Auto) 0.1 K/mm3 (0.0-0.1); Basophils % (Auto) 0.5 % (0.0-1.8); Eosinophils # (Auto) 0.2 K/mm3 (0.0-0.4); Eosinophils % (Auto) 1.1 % (0.0-4.3); Hematocrit 32.8 % (35.5-45.6); Hemoglobin 10.6 gm/dl (11.8-15.2); Lymphocytes # (Auto) 1.5 K/mm3 (1.2-5.4); Lymphocytes % (Auto) 10.3 % (13.4-35.0); Mean Corpuscular HGB Conc 32 % (32-34); Mean Corpuscular Volume 87 fl (84-94); Monocytes # (Auto) 0.5 K/mm3 (0.0-0.8); Monocytes % (Auto) 3.6 % (0.0-7.3); Platelet Count 442 K/mm3 (140-440); Red Blood Count 3.78 M/mm3 (3.65-5.03)
--- NOTE | 2018-09-10 11:25 | XRay Report ---
AP CHEST: HISTORY: Altered mental status Borderline to mild cardiomegaly is stable since 01/29/18. The lungs are clear. Right IJ venous catheter remains in same position. The bony structures are intact. IMPRESSION: Borderline to mild cardiomegaly. Lungs clear.
[2018-09-10 11:39] LABS: Albumin 3.1 g/dL (3.9-5); Calcium 9.2 mg/dL (8.4-10.2)
[2018-09-10] MEDS ORDERED: ZOFRAN IV ONE (11:41)
[2018-09-10 12:09] LABS: Bilirubin,Urine NEG (Negative); Blood,Urine NEG (Negative); Color,Urine Straw (Yellow); Urobilinogen,Urine < 2.0 mg/dL (<2.0)
[2018-09-10 12:17] LABS: RBC,Urine < 1.0 /HPF (0.0-6.0); WBC,Urine < 1.0 /HPF (0.0-6.0)
[2018-09-10 13:03] LABS: Chol/HDL Ratio 3.89 %
--- NOTE | 2018-09-10 13:28 | Cat Scan Report ---
CT HEAD WITHOUT CONTRAST: HISTORY: Altered mental status. TECHNIQUE: Sequential 2.5mm CT images. COMPARISON: 01/31/18. FINDINGS: Cerebral Parenchyma: Mild diffuse volume loss and mild chronic white matter changes are stable. Chronic cortical infarct in the left posterior watershed region measures approximately 2.7 x 2.2 cm in axial plane. Chronic lacunar infarcts are identified in both basal ganglia. No evidence for mass, mass effect or new areas of acute ischemia. Cerebellum: Within normal limits. Brainstem: Within normal limits. Ventricles: Normal. Sella: Normal. Extra-axial spaces: Normal. Basal Cisterns: Normal. Intracranial Hemorrhage: None. Midline Shift: None. Calvarium: Normal. Sinuses: Normal. Mastoid Air Cells: Normal. Visualized Orbits: Normal. IMPRESSION: Volume loss. Chronic white matter changes. Chronic focal infarcts as outlined above. No significant change since 01/31/18.
[2018-09-10 13:35] LABS: Albumin 2.8 g/dL (3.9-5); Calcium 9.1 mg/dL (8.4-10.2)
[2018-09-10] MEDS ORDERED: NACL 0.9% 100 ML IV PRN (14:50)
[2018-09-10] MEDS ORDERED: HEPARIN IV ONE (14:52)
[2018-09-10] MEDS ORDERED: PROCRIT ONE (19:44)
[2018-09-10] MEDS ORDERED: PHENERGAN PO PRN (21:48)
[2018-09-10] MEDS ORDERED: SODIUM CHLORIDE FLUSH SYRINGE 10 ML IV PRN (21:49)
[2018-09-10] MEDS ORDERED: REGLAN IV PRN (21:49)
[2018-09-10] MEDS ORDERED: DILAUDID IV PRN (21:49)
[2018-09-10] MEDS ORDERED: TYLENOL PO PRN (21:49)
[2018-09-10] MEDS ORDERED: PEPCID PO SCH ×2 (22:00)
[2018-09-10] MEDS: TYLENOL PO PRN (22:53)
[2018-09-10] MEDS: LOPRESSOR PO SCH (22:54)
[2018-09-10] MEDS: SODIUM CHLORIDE FLUSH SYRINGE 10 ML IV SCH (22:55)
[2018-09-10] MEDS: ZOFRAN IV PRN (23:03)
[2018-09-10] MEDS: VISTARIL PO SCH (23:03)
[2018-09-10] MEDS: ZOFRAN ODT PO SCH (23:04)
--- NOTE | 2018-09-11 05:41 | Event Note ---
Date: 09/10/18 Acute Encephalopathy Acute Gastritis ESRD needing HD HTN See H/p in reports
[2018-09-11 05:55] LABS: Basophils # (Auto) 0.1 K/mm3 (0.0-0.1); Basophils % (Auto) 0.3 % (0.0-1.8); Eosinophils # (Auto) 0.1 K/mm3 (0.0-0.4); Eosinophils % (Auto) 0.3 % (0.0-4.3); Hematocrit 30.8 % (35.5-45.6); Lymphocytes # (Auto) 1.7 K/mm3 (1.2-5.4); Lymphocytes % (Auto) 9.1 % (13.4-35.0); Mean Corpuscular HGB Conc 32 % (32-34); Mean Corpuscular Volume 86 fl (84-94); Monocytes # (Auto) 0.9 K/mm3 (0.0-0.8); Monocytes % (Auto) 4.7 % (0.0-7.3); Platelet Count 432 K/mm3 (140-440); Red Blood Count 3.57 M/mm3 (3.65-5.03)
--- NOTE | 2018-09-11 06:06 | History and Physical Report ---
CHIEF COMPLAINT: Nausea and vomiting for a couple of hours. HISTORY OF PRESENT ILLNESS: A 67-year-old male who presents to the Emergency Room for altered sensorium, nausea and vomiting x 2. The patient was being transported to dialysis center from [facility] when he started vomiting with change in mentation. The patient is nonverbal and lethargic. The patient normally answers questions and asks. The patient has a history of altered sensorium off and on in the past and was admitted for acute encephalopathy in the past. No precipitating factors. No fever or chills. PAST MEDICAL HISTORY: Significant for hypertension, congestive heart failure with ejection fraction of 40-45%, diabetes, end-stage renal disease, on dialysis. PAST SURGICAL HISTORY: Right side vascath in the infraclavicular region. SOCIAL HISTORY: Does not smoke, [facility] resident. FAMILY HISTORY: Hypertension. CURRENT MEDICATIONS: Famotidine 20 mg b.i.d. and Lopressor 25 mg b.i.d. and Seroquel 25 mg b.i.d. REVIEW OF SYSTEMS: Significant for vomiting x 2 and altered sensorium. Otherwise, review of systems negative. PHYSICAL EXAMINATION: GENERAL: Elderly male, cooperative during examination, lethargic. VITAL SIGNS: Blood pressure is 151/85, temperature 98, pulse is 98, sats are 98%. HEENT: Unremarkable. NECK: Supple, no lymphadenopathy, no thyromegaly. LUNGS: Clear to auscultation and percussion. Good air entry. CARDIOVASCULAR: S1, S2 heard. No gallop, no murmur, no rub. Apical impulse in left fifth intercostal space, midclavicular line. ABDOMEN: Soft and benign. No hepatosplenomegaly. No guarding, no rigidity. Hernial orifices are normal. EXTREMITIES: Good pedal pulses. No pedal edema. CENTRAL NERVOUS SYSTEM: Lethargic, unable to answer questions, but moves all 4 extremities. SKIN: Normal. LABORATORY DATA: Significant for white count of 14,100, H and H of 10.6 and 32.8, platelet count is 442,000. Sodium is 137, potassium is 5.1, slightly high, BUN and creatinine are 69 and 3.7, glucose is 136. Hemoglobin A1c is 5.5, AST is 78, ALT is 58. Troponin is 0.215. Albumin is 3.1. HDL is 28, lipase is 72. Urine is negative for any infection. Head CT was normal. No acute findings. Chronic changes present. Volume loss and chronic white matter changes. Chronic focal infarcts. Chest x-ray shows borderline to mild cardiomegaly, lungs are clear. EKG shows normal EKG, normal intervals, normal QRS complexes. ASSESSMENT AND PLAN: 1. Acute encephalopathy, probably secondary to uremia. The patient to go for hemodialysis. Nephrology consult requested. 2. Acute gastritis. IV Protonix and IV Zofran for now. 3. End-stage renal disease, needing dialysis. Nephrology consulted. 4. Hypertension. Continue metoprolol. 5. Bipolar disorder. Continue Seroquel. 6. Gastroesophageal reflux disorder. Continue protonix 6. Deep venous thrombosis prophylaxis, heparin 5000 q.12 hours. 7. Hyperkalemia, very mild, 5.1, should correct with the hemodialysis. JOB# [id number] ELIAS/FELICITAS LOVE
[2018-09-11 06:25] LABS: Calcium 9.3 mg/dL (8.4-10.2)
[2018-09-11] MEDS: VISTARIL PO SCH ×3 (06:31→22:00)
[2018-09-11] MEDS: ZOFRAN ODT PO SCH ×3 (06:32→22:00)
[2018-09-11] MEDS: TYLENOL PO PRN ×2 (06:35→22:00)
--- NOTE | 2018-09-11 08:11 | Progress Note ---
Assessment and Plan Assessment and plan: Patient is a 67-year-old male admitted with altered mental status, nausea and vomiting x 2. The patient was on his way from [facility] to get dialysis when he started vomiting and had some change in mentation. The patient is currently nonverbal and lethargic and a a poor historian. The patient has a past medical history that includes bipolar disorder, schizophrenia, chronic dysphagia, end-stage renal disease on hemodialysis, GERD, hypertension, congestive heart failure, cardiomyopathy, and there is a listing of previous sepsis and encephalopathy. Per EMS, the patient is usually mostly nonverbal but will usually answer questions if asked, but he is not doing that currently. He has a right-sided dialysis chest catheter and a G-tube. CT HEAD- CHRONIC INFARCTS Acute METABOLIC Encephalopathy secondary to UREMIA Acute Gastritis ESRD needing HD HTN BIPOLAR DISORDER GERD Hyperkalemia Leukocytosis NSTEMI TYPE 2 SECONDARY TO ESRD PLAN: supportive care Nephrology consult ?Viral etiology, continue to monitor Outpatient cardiac eval Abdomen KUB prior to restarting tube feeds. KUB showed fecal impaction. Was started on Fleet enema. Aspiration precautions Continue antiemetics DVT/GI prophy History Interval history: Patient seen and examined, lathergic appearing. No new complaints. Discussed with nursing staff, two other episode of vomiting. Hospitalist Physical - Physical exam Narrative exam: VITAL SIGNS: Reviewed. GENERAL: The patient appeared well nourished and normally developed, otherwise lethargic. Vital signs as documented. HEAD: No signs of head trauma. EYES: Pupils are equal. Extraocular motions intact. EARS: Hearing grossly intact. MOUTH: Oropharynx is normal. NECK: No adenopathy, no JVD. CHEST: Chest with clear breath sounds bilaterally. No wheezes, rales, or rhonchi. CARDIAC: Regular rate and rhythm. S1 and S2, without murmurs, gallops, or rubs. VASCULAR: No Edema. Peripheral pulses normal and equal in all extremities. ABDOMEN: Soft, non tender and non distended. No rebound or guarding, and no masses palpated. Bowel Sounds normal. MUSCULOSKELETAL: Generalized contractured. Extremities without clubbing, cyanosis or edema. NEUROLOGIC EXAM: Lethargic although awake. Orientation cannot be assessed. No focal sensory or strength deficits. . PSYCHIATRIC: Mood normal. SKIN: No rash or lesions. - Constitutional Vitals: Temp Pulse Resp BP Pulse Ox 97.9 F 61 20 95/55 100 09/11/18 02:33 09/11/18 02:33 09/11/18 06:35 09/11/18 02:33 09/11/18 04:00 Results - Labs CBC & Chem 7: 09/12/18 04:59 09/12/18 04:59 Labs: Laboratory Last Values WBC 18.9 K/mm3 (4.5-11.0) H 09/11/18 05:17 RBC 3.57 M/mm3 (3.65-5.03) L 09/11/18 05:17 Hgb 10.0 gm/dl (11.8-15.2) L 09/11/18 05:17 Hct 30.8 % (35.5-45.6) L 09/11/18 05:17 MCV 86 fl (84-94) 09/11/18 05:17 MCH 28 pg (28-32) 09/11/18 05:17 MCHC 32 % (32-34) 09/11/18 05:17 RDW 18.0 % (13.2-15.2) H 09/11/18 05:17 Plt Count 432 K/mm3 (140-440) 09/11/18 05:17 Lymph % (Auto) 9.1 % (13.4-35.0) L 09/11/18 05:17 [place] % (Auto) 4.7 % (0.0-7.3) 09/11/18 05:17 Eos % (Auto) 0.3 % (0.0-4.3) 09/11/18 05:17 Baso % (Auto) 0.3 % (0.0-1.8) 09/11/18 05:17 Lymph # 1.7 K/mm3 (1.2-5.4) 09/11/18 05:17 [place] # 0.9 K/mm3 (0.0-0.8) H 09/11/18 05:17 Eos # 0.1 K/mm3 (0.0-0.4) 09/11/18 05:17 Baso # 0.1 K/mm3 (0.0-0.1) 09/11/18 05:17 Seg Neutrophils % 85.6 % (40.0-70.0) H 09/11/18 05:17 Seg Neutrophils # 16.2 K/mm3 (1.8-7.7) H 09/11/18 05:17 Sodium 138 mmol/L (137-145) 09/11/18 05:17 Potassium 3.9 mmol/L (3.6-5.0) 09/11/18 05:17 Chloride 95.3 mmol/L (98-107) L 09/11/18 05:17 Carbon Dioxide 26 mmol/L (22-30) 09/11/18 05:17 21 mmol/L 09/11/18 05:17 BUN 40 mg/dL (9-20) H 09/11/18 05:17 2.8 mg/dL (0.8-1.5) H 09/11/18 05:17 Estimated GFR 23 ml/min 09/11/18 05:17 14 % 09/11/18 05:17 Glucose 111 mg/dL (75-100) H 09/11/18 05:17 5.5 % (4-6) 09/10/18 10:44 Lactic Acid 1.90 mmol/L (0.7-2.0) 09/10/18 11:22 Calcium 9.3 mg/dL (8.4-10.2) 09/11/18 05:17 0.40 mg/dL (0.1-1.2) 09/11/18 05:17 AST 33 units/L (5-40) 09/11/18 05:17 ALT 41 units/L (7-56) 09/11/18 05:17 75 units/L (35-129) 09/11/18 05:17 30.0 umol/L (25-60) 09/10/18 10:44 0.215 ng/mL (0.00-0.029) H* 09/10/18 10:44 7.7 g/dL (6.3-8.2) 09/11/18 05:17 3.0 g/dL (3.9-5) L 09/11/18 05:17 0.6 % 09/11/18 05:17 Triglycerides 126 mg/dL (2-149) 09/10/18 10:44 Cholesterol 109 mg/dL (50-199) 09/10/18 10:44 59 mg/dL (50-130) 09/10/18 10:44 28 mg/dL (40-59) L 09/10/18 10:44 3.89 % 09/10/18 10:44 72 units/L (13-60) H 09/10/18 10:44 TSH 1.530 mlU/mL (0.270-4.200) 09/10/18 10:44 Straw (Yellow) 09/10/18 11:45 Clear (Clear) 09/10/18 11:45 7.0 (5.0-7.0) 09/10/18 11:45 Ur Specific [place] 1.006 (1.003-1.030) 09/10/18 11:45 100 mg/dl mg/dL (Negative) 09/10/18 11:45 50 mg/dL (Negative) 09/10/18 11:45 Neg mg/dL (Negative) 09/10/18 11:45 Neg (Negative) 09/10/18 11:45 Neg (Negative) 09/10/18 11:45 Neg (Negative) 09/10/18 11:45 < 2.0 mg/dL (<2.0) 09/10/18 11:45 Ur Leukocyte Esterase Neg (Negative) 09/10/18 11:45 < 1.0 /HPF (0.0-6.0) 09/10/18 11:45 < 1.0 /HPF (0.0-6.0) 09/10/18 11:45 U Epithel Cells (Auto) < 1.0 /HPF (0-13.0) 09/10/18 11:45 Active Medications - Current Medications Current Medications: Generic Name Dose Route Start Last Admin Trade Name Freq PRN Reason Stop Dose Admin Acetaminophen 650 mg 09/10/18 21:48 09/11/18 06:35 Tylenol PO 650 mg Q4H PRN Administration Pain MILD(1-3)/Fever >100.5/SALDAÑA Epoetin Kartik 10,000 unit 09/10/18 14:51 Procrit IV MICHAELA PRN hemodialysis Escitalopram Oxalate 5 mg 09/11/18 10:00 Lexapro PO QDAY NIYA Heparin Sodium (Porcine) 5,000 unit 09/11/18 10:00 Heparin SUB-Q Q12HR NIYA Hydromorphone HCl 0.25 mg 09/10/18 21:49 Dilaudid IV Q3H PRN Pain, Moderate (4-6) Hydroxyzine Pamoate 25 mg 09/10/18 22:00 09/11/18 06:31 Vistaril PO 25 mg Q8H NIYA Administration Sodium Chloride 100 mls @ 999 mls/hr 09/10/18 14:50 Nacl 0.9% IV MICHAELA PRN Hypotension Metoclopramide HCl 5 mg 09/10/18 22:27 Reglan IV Q6H PRN Nausea And Vomiting Metoprolol Tartrate 25 mg 09/10/18 22:00 09/10/18 22:54 Lopressor PO 25 mg BID NIYA Administration Ondansetron HCl 4 mg 09/10/18 22:00 09/11/18 06:32 Zofran Odt PO 4 mg Q8HR NIYA Administration Ondansetron HCl 4 mg 09/10/18 21:49 09/10/18 23:03 Zofran IV 4 mg Q8H PRN Administration Nausea And Vomiting Pantoprazole Sodium 40 mg 09/11/18 08:00 Protonix IV QDAY NIYA Promethazine HCl 25 mg 09/10/18 21:48 Phenergan PO Q6HR PRN Nausea Quetiapine Fumarate 25 mg 09/10/18 22:00 09/10/18 22:54 Seroquel PO 25 mg BID NIYA Administration Sodium Chloride 10 ml 09/10/18 22:00 09/10/18 22:55 Sodium Chloride Flush Syringe 10 Ml IV 10 ml BID NIYA Administration Sodium Chloride 10 ml 09/10/18 21:49 Sodium Chloride Flush Syringe 10 Ml IV PRN PRN LINE FLUSH
[2018-09-11] MEDS: REGLAN IV PRN ×2 (09:32→22:00)
[2018-09-11] MEDS: PROTONIX IV SCH (09:32)
[2018-09-11] MEDS: HEPARIN SUB-Q SCH ×2 (09:32→22:10)
[2018-09-11] MEDS: LEXAPRO PO SCH (09:33)
[2018-09-11] MEDS: LOPRESSOR PO SCH ×2 (09:33→22:00)
[2018-09-11] MEDS: SODIUM CHLORIDE FLUSH SYRINGE 10 ML IV SCH ×2 (09:34→22:00)
[2018-09-11] MEDS ORDERED: ESCITALOPRAM OXALATE 5 MG PO SCH (10:00)
--- NOTE | 2018-09-11 11:14 | XRay Report ---
AP ABDOMEN: HISTORY: Nausea and vomiting. There is moderate stool throughout the colon and rectum. The abdominal gas pattern is unremarkable. No masses or organomegaly is identified and there is no gross evidence of free air or fluid. No significant soft tissue calcifications are noted. PEG tube is in position. IMPRESSION: Fecal retention. No acute abdominal process.
[2018-09-11] MEDS ORDERED: FLEET PR ONE ×2 (15:00→18:00)
[2018-09-11] MEDS ORDERED: PANCREAZE DR 10,500 UNIT FEEDTUBE PRN ×2 (15:16→16:33)
[2018-09-11] MEDS ORDERED: SODIUM BICARBONATE FEEDTUBE PRN ×2 (15:16→16:33)
[2018-09-11] MEDS ORDERED: SIMPLE SYRUP FEEDTUBE PRN ×4 (15:16→16:33)
[2018-09-11] MEDS: ZOFRAN IV PRN (15:33)
--- NOTE | 2018-09-11 18:51 | Consultation ---
History of Present Illness - Reason for Consult Consult date: 09/11/18 end stage renal disease Requesting physician: HENRIK JAIMES - History of Present Illness 67-year-old male who is well known to our group with a history of chronic systolic heart failure ejection fraction 40-45%, ESRD on hemodialysis since December 2017 when he presented with acute on chronic kidney injury with acute pulmonary edema. Patient has not had any significant requiring a recovery trevin ins on dialysis 5 permacath. He is currently residing at a [facility] as he remains severely deconditioned. He was brought from the hospital soon on account of nausea or vomiting and altered mental status. Patient unable to give a history and history is obtained from my review of the records. Past History Past Medical History: DVT, ESRD, GERD, heart failure, hypertension, other (bipolar disorder, schizophrenia, chronic dysphagia) Past Surgical History: Other (permacath placement) Social history: denies: smoking, alcohol abuse, prescription drug abuse, IV drug use Family history: no significant family history (unable to obtain) Medications and Allergies Allergies Allergy/AdvReac Type Severity Reaction Status Date / Time No Known Allergies Allergy Verified 12/15/17 17:22 Home Medications Medication Instructions Recorded Confirmed Last Taken Type Acetaminophen [Acetaminophen TAB] 650 mg PO Q4H PRN #30 tablet 02/16/18 09/10/18 Unknown Rx Escitalopram Oxalate [Lexapro] 5 mg PO QDAY 09/10/18 09/10/18 Unknown History Famotidine [Pepcid] 20 mg PO BID 09/10/18 09/10/18 Unknown History Lactobacillus Acidophilus 1 each PO DAILY 09/10/18 09/10/18 Unknown History [Acidophilus Lactobacilli] Metoprolol [Lopressor] 25 mg PO BID 09/10/18 09/10/18 Unknown History Ondansetron [Zofran Odt] 4 mg PO Q8HR 09/10/18 09/10/18 Unknown History Promethazine [Phenergan] 25 mg PO Q6HR PRN 09/10/18 09/10/18 Unknown History QUEtiapine [SEROquel] 25 mg PO BID 09/10/18 09/10/18 Unknown History hydrOXYzine PAMOATE [Vistaril] 25 mg PO Q8H 09/10/18 09/10/18 Unknown History Active Meds: Active Medications Acetaminophen (Tylenol) 650 mg PO Q4H PRN PRN Reason: Pain MILD(1-3)/Fever >100.5/SALDAÑA Last Admin: 09/11/18 06:35 Dose: 650 mg Documented by: Lipase/Protease/Amylase (Char Miller 10,500 Unit) 1 each FEEDTUBE PRN PRN PRN Reason: For Clogged Feeding Tube Epoetin Akrtik (Procrit) 10,000 unit IV MICHAELA PRN PRN Reason: hemodialysis Escitalopram Oxalate (Lexapro) 5 mg PO QDAY [facility] Last Admin: 09/11/18 09:33 Dose: 5 mg Documented by: Heparin Sodium (Porcine) (Heparin) 5,000 unit SUB-Q Q12HR [facility] Last Admin: 09/11/18 09:32 Dose: 5,000 unit Documented by: Hydromorphone HCl (Dilaudid) 0.25 mg IV Q3H PRN PRN Reason: Pain, Moderate (4-6) Hydroxyzine Pamoate (Vistaril) 25 mg PO Q8H [facility] Last Admin: 09/11/18 15:32 Dose: 25 mg Documented by: Sodium Chloride (Nacl 0.9%) 100 mls @ 999 mls/hr IV MICHAELA PRN PRN Reason: Hypotension Metoclopramide HCl (Reglan) 5 mg IV Q6H PRN PRN Reason: Nausea And Vomiting Last Admin: 09/11/18 09:32 Dose: 5 mg Documented by: Metoprolol Tartrate (Lopressor) 25 mg PO BID [facility] Last Admin: 09/11/18 09:33 Dose: 25 mg Documented by: Ondansetron HCl (Zofran Odt) 4 mg PO Q8HR [facility] Last Admin: 09/11/18 15:34 Dose: Not Given Documented by: Ondansetron HCl (Zofran) 4 mg IV Q8H PRN PRN Reason: Nausea And Vomiting Last Admin: 09/11/18 15:33 Dose: 4 mg Documented by: Pantoprazole Sodium (Protonix) 40 mg IV QDAY [facility] Last Admin: 09/11/18 09:32 Dose: 40 mg Documented by: Polyethylene Glycol (Miralax 3350) 17 gm FEEDTUBE QDAY [facility] Promethazine HCl (Phenergan) 25 mg PO Q6HR PRN PRN Reason: Nausea Quetiapine Fumarate (Seroquel) 25 mg PO BID [facility] Last Admin: 09/11/18 09:32 Dose: 25 mg Documented by: Simple Syrup (Simple Syrup) 15 ml FEEDTUBE PRN PRN PRN Reason: Hypoglycemia Simple Syrup (Simple Syrup) 30 ml FEEDTUBE PRN PRN PRN Reason: Hypoglycemia Sodium Bicarbonate (Sodium Bicarbonate) 325 mg FEEDTUBE PRN PRN PRN Reason: For Clogged Feeding Tube Sodium Chloride (Sodium Chloride Flush Syringe 10 Ml) 10 ml IV BID [facility] Last Admin: 09/11/18 09:34 Dose: 10 ml Documented by: Sodium Chloride (Sodium Chloride Flush Syringe 10 Ml) 10 ml IV PRN PRN PRN Reason: LINE FLUSH Review of Systems ROS unobtainable: due to mental status Exam - Vital Signs Vital signs: Vital Signs Pulse Resp Pulse Ox 88 14 97 09/10/18 10:22 09/10/18 10:22 09/10/18 10:22 - Physical Exam Narrative exam: Chronically ill-looking Elderly male lying in bed in no acute distress HEENT: NCAT, pink oral mucous membrane Neck: Supple, no venous distention CVS: S1S2 RRR with no murmur, rub or gallop Chest: Clear to auscultation Abdomen: Scaphoid, soft, nontender, no organomegaly, bowel sounds are present Extremities: No edema, muscle wasting Skin warm and dry with no rash Genitourinary deferred Neuro: Barely opens eyes to sternal rub, nonverbal Results - Lab Results 09/12/18 04:59 09/12/18 04:59 Most recent lab results Calcium 9.3 mg/dL (8.4-10.2) 09/11/18 05:17 Assessment and Plan - Patient Problems (1) Acute encephalopathy Current Visit: Yes Status: Acute Plan to address problem: Altered mental status etiology uncertain. Possibly related to sepsis. (2) Leukocytosis Current Visit: Yes Status: Acute Plan to address problem: Concerned about sepsis. With permacath I am definitely concerned about line related sepsis. We'll obtain blood cultures. Start empiric antibiotics. Follow-up cultures (3) ESRD needing dialysis Current Visit: Yes Status: Chronic Plan to address problem: Resume hemodialysis 3 times a week (4) Anemia in chronic kidney disease Current Visit: No Status: Acute Plan to address problem: Give Erythropoetin on dialysis (5) Hypertensive chronic kidney disease with stage 5 chronic kidney disease or end stage renal disease Current Visit: No Status: Acute Plan to address problem: Follow-up blood pressure on dialysis
[2018-09-11] MEDS ORDERED: VANCOMYCIN/NS 1 GM/250 ML 1 GM/250 ML BAG IV ONE (21:00)
[2018-09-11] MEDS: MAXIPIME/NS 1 GM/100 ML 1 GM/100 ML BAG IV SCH (22:10)
[2018-09-12 06:04] LABS: Hematocrit 30.5 % (35.5-45.6); Hemoglobin 9.9 gm/dl (11.8-15.2); Mean Corpuscular HGB Conc 32 % (32-34); Mean Corpuscular Volume 86 fl (84-94); Platelet Count 431 K/mm3 (140-440); Red Blood Count 3.54 M/mm3 (3.65-5.03); Red Cell Distribution Width 17.7 % (13.2-15.2)
[2018-09-12 06:23] LABS: Calcium 8.9 mg/dL (8.4-10.2)
[2018-09-12] MEDS: TYLENOL PO PRN (06:41)
[2018-09-12] MEDS: ZOFRAN ODT PO SCH ×3 (06:41→22:54)
[2018-09-12] MEDS: VISTARIL PO SCH ×3 (06:41→22:00)
[2018-09-12] MEDS: HEPARIN SUB-Q SCH ×2 (09:00→22:54)
[2018-09-12] MEDS: MAXIPIME/NS 1 GM/100 ML 1 GM/100 ML BAG IV SCH (09:00)
[2018-09-12] MEDS: PROTONIX IV SCH (09:00)
[2018-09-12] MEDS: LEXAPRO PO SCH (09:00)
[2018-09-12] MEDS: MIRALAX 3350 FEEDTUBE SCH (09:01)
[2018-09-12] MEDS: SODIUM CHLORIDE FLUSH SYRINGE 10 ML IV SCH ×2 (09:02→22:00)
--- NOTE | 2018-09-12 09:13 | Consultation ---
History of Present Illness Consult date: 09/12/18 Consult reason: elevated troponin History of present illness: This is a 67 year old male who resides in a correction and is non-verbal. He has ESRD on dialysis, a history of DVT, hypertension, anemia, mild cardiomyopathy, EF 40-45% by echocardiogram 8 months ago. He was brought to the emergency department with nausea vomiting and altered mental status. Head CT scan documents no acute process. Chest x-ray shows no interstitial edema. A cardiac consultation has been requested for mild rise of troponin, likely due to renal disease. His presenting EKG is benign, normal sinus rhythm. Medications and Allergies Allergies Allergy/AdvReac Type Severity Reaction Status Date / Time No Known Allergies Allergy Verified 12/15/17 17:22 Home Medications Medication Instructions Recorded Confirmed Last Taken Type Acetaminophen [Acetaminophen TAB] 650 mg PO Q4H PRN #30 tablet 02/16/18 09/10/18 Unknown Rx Escitalopram Oxalate [Lexapro] 5 mg PO QDAY 09/10/18 09/10/18 Unknown History Famotidine [Pepcid] 20 mg PO BID 09/10/18 09/10/18 Unknown History Lactobacillus Acidophilus 1 each PO DAILY 09/10/18 09/10/18 Unknown History [Acidophilus Lactobacilli] Metoprolol [Lopressor] 25 mg PO BID 09/10/18 09/10/18 Unknown History Ondansetron [Zofran Odt] 4 mg PO Q8HR 09/10/18 09/10/18 Unknown History Promethazine [Phenergan] 25 mg PO Q6HR PRN 09/10/18 09/10/18 Unknown History QUEtiapine [SEROquel] 25 mg PO BID 09/10/18 09/10/18 Unknown History hydrOXYzine PAMOATE [Vistaril] 25 mg PO Q8H 09/10/18 09/10/18 Unknown History Active Meds: Active Medications Acetaminophen (Tylenol) 650 mg PO Q4H PRN PRN Reason: Pain MILD(1-3)/Fever >100.5/SALDAÑA Last Admin: 09/12/18 06:41 Dose: 650 mg Documented by: Lipase/Protease/Amylase (Char Miller 10,500 Unit) 1 each FEEDTUBE PRN PRN PRN Reason: For Clogged Feeding Tube Epoetin Kartik (Procrit) 10,000 unit IV MICHAELA PRN PRN Reason: hemodialysis Escitalopram Oxalate (Lexapro) 5 mg PO QDAY [facility] Last Admin: 09/11/18 09:33 Dose: 5 mg Documented by: Heparin Sodium (Porcine) (Heparin) 5,000 unit SUB-Q Q12HR [facility] Last Admin: 09/11/18 22:10 Dose: 5,000 unit Documented by: Hydromorphone HCl (Dilaudid) 0.25 mg IV Q3H PRN PRN Reason: Pain, Moderate (4-6) Hydroxyzine Pamoate (Vistaril) 25 mg PO Q8H [facility] Last Admin: 09/12/18 06:41 Dose: 25 mg Documented by: Sodium Chloride (Nacl 0.9%) 100 mls @ 999 mls/hr IV MICHAELA PRN PRN Reason: Hypotension Cefepime HCl (Maxipime/Ns 1 Gm/100 Ml) 1 gm in 100 mls @ 200 mls/hr IV Q24HR [facility]; Protocol Last Admin: 09/11/18 22:10 Dose: 200 mls/hr Documented by: Metoclopramide HCl (Reglan) 5 mg IV Q6H PRN PRN Reason: Nausea And Vomiting Last Admin: 09/11/18 22:00 Dose: 5 mg Documented by: Metoprolol Tartrate (Lopressor) 25 mg PO BID [facility] Last Admin: 09/11/18 22:00 Dose: 25 mg Documented by: Ondansetron HCl (Zofran Odt) 4 mg PO Q8HR [facility] Last Admin: 09/12/18 06:41 Dose: 4 mg Documented by: Ondansetron HCl (Zofran) 4 mg IV Q8H PRN PRN Reason: Nausea And Vomiting Last Admin: 09/11/18 15:33 Dose: 4 mg Documented by: Pantoprazole Sodium (Protonix) 40 mg IV QDAY [facility] Last Admin: 09/11/18 09:32 Dose: 40 mg Documented by: Polyethylene Glycol (Miralax 3350) 17 gm FEEDTUBE QDAY [facility] Promethazine HCl (Phenergan) 25 mg PO Q6HR PRN PRN Reason: Nausea Quetiapine Fumarate (Seroquel) 25 mg PO BID [facility] Last Admin: 09/11/18 22:00 Dose: 25 mg Documented by: Simple Syrup (Simple Syrup) 15 ml FEEDTUBE PRN PRN PRN Reason: Hypoglycemia Simple Syrup (Simple Syrup) 30 ml FEEDTUBE PRN PRN PRN Reason: Hypoglycemia Sodium Bicarbonate (Sodium Bicarbonate) 325 mg FEEDTUBE PRN PRN PRN Reason: For Clogged Feeding Tube Sodium Chloride (Sodium Chloride Flush Syringe 10 Ml) 10 ml IV BID NIYA Last Admin: 09/11/18 22:00 Dose: 10 ml Documented by: Sodium Chloride (Sodium Chloride Flush Syringe 10 Ml) 10 ml IV PRN PRN PRN Reason: LINE FLUSH Physical Examination Vital Signs Pulse Resp Pulse Ox 88 14 97 09/10/18 10:22 09/10/18 10:22 09/10/18 10:22 General appearance: no acute distress HEENT: Positive: PERRL Cardiac: Positive: Reg Rate and Rhythm Lungs: Positive: Decreased Breath Sounds Extremities: Absent: edema Results 09/12/18 04:59 09/12/18 04:59 CBC 09/12/18 Range/Units 04:59 WBC 17.6 H (4.5-11.0) K/mm3 RBC 3.54 L (3.65-5.03) M/mm3 Hgb 9.9 L (11.8-15.2) gm/dl Hct 30.5 L (35.5-45.6) % Plt Count 431 (140-440) K/mm3 Comprehensive Metabolic Panel 09/12/18 Range/Units 04:59 Sodium 139 (137-145) mmol/L Potassium 3.9 (3.6-5.0) mmol/L Chloride 95.6 L (98-107) mmol/L Carbon Dioxide 23 (22-30) mmol/L BUN 68 H (9-20) mg/dL Creatinine 4.5 H D (0.8-1.5) mg/dL Glucose 108 H (75-100) mg/dL Calcium 8.9 (8.4-10.2) mg/dL Assessment and Plan Nausea Vomiting Altered mental status Hypertension ESRD on dialysis Anemia Cardiomyopathy, EF 40-45% Mild elevated troponin, nonspecific Conservative cardiac management.
[2018-09-12] MEDS: LOPRESSOR PO SCH ×2 (10:11→22:53)
[2018-09-12] MEDS: PROCRIT IV PRN (13:10)
--- NOTE | 2018-09-12 15:08 | Progress Note ---
Assessment and Plan Assessment and plan: Patient is a 67-year-old male admitted with altered mental status, nausea and vomiting x 2. The patient was on his way from [facility] to get dialysis when he started vomiting and had some change in mentation. The patient is currently nonverbal and lethargic and a a poor historian. The patient has a past medical history that includes bipolar disorder, schizophrenia, chronic dysphagia, end-stage renal disease on hemodialysis, GERD, hypertension, congestive heart failure, cardiomyopathy, and there is a listing of previous sepsis and encephalopathy. Per EMS, the patient is usually mostly nonverbal but will usually answer questions if asked, but he is not doing that currently. He has a right-sided dialysis chest catheter and a G-tube. CT HEAD- CHRONIC INFARCTS Acute METABOLIC Encephalopathy secondary to UREMIA Acute Gastritis Constipation-resolved with administration ESRD needing HD HTN BIPOLAR DISORDER GERD Hyperkalemia Leukocytosis NSTEMI TYPE 2 SECONDARY TO ESRD PLAN: supportive care Nephrology consult ?Viral etiology, continue to monitor Outpatient cardiac eval Start on MiraLAX Antibiotics by evaporator operator. Monitor blood cultures. Repeat chest x-ray to show no aspiration. Continue antiemetics if WBC begins to improve trending down patient may be able to discharge in am DVT/GI prophy History Interval history: Patient seen and examined, No new complaints. no clubbing or vomiting reported. Patient had a large bowel movement yesterday Hospitalist Physical - Physical exam Narrative exam: VITAL SIGNS: Reviewed. GENERAL: The patient appeared well nourished and normally developed, still lethargic but much improved today.. Vital signs as documented. HEAD: No signs of head trauma. EYES: Pupils are equal. Extraocular motions intact. EARS: Hearing grossly intact. MOUTH: Oropharynx is normal. NECK: No adenopathy, no JVD. CHEST: Chest with clear breath sounds bilaterally. No wheezes, rales, or rhonchi. CARDIAC: Regular rate and rhythm. S1 and S2, without murmurs, gallops, or rubs. VASCULAR: No Edema. Peripheral pulses normal and equal in all extremities. ABDOMEN: Soft, non tender and non distended. PEG tube site no erythema. No rebound or guarding, and no masses palpated. Bowel Sounds normal. MUSCULOSKELETAL: Generalized contractured. Extremities without clubbing, cyanosis or edema. NEUROLOGIC EXAM: Lethargic although awake. Orientation cannot be assessed. No focal sensory or strength deficits. . PSYCHIATRIC: Mood normal. SKIN: No rash or lesions. - Constitutional Vitals: Temp Pulse Resp BP Pulse Ox 100.1 F H 104 H 16 127/69 98 09/12/18 14:50 09/12/18 14:50 09/12/18 14:50 09/12/18 14:50 09/12/18 14:50 General appearance: Present: no acute distress Results - Labs CBC & Chem 7: 09/12/18 04:59 09/12/18 04:59 Labs: Laboratory Last Values WBC 17.6 K/mm3 (4.5-11.0) H 09/12/18 04:59 RBC 3.54 M/mm3 (3.65-5.03) L 09/12/18 04:59 Hgb 9.9 gm/dl (11.8-15.2) L 09/12/18 04:59 Hct 30.5 % (35.5-45.6) L 09/12/18 04:59 MCV 86 fl (84-94) 09/12/18 04:59 MCH 28 pg (28-32) 09/12/18 04:59 MCHC 32 % (32-34) 09/12/18 04:59 RDW 17.7 % (13.2-15.2) H 09/12/18 04:59 Plt Count 431 K/mm3 (140-440) 09/12/18 04:59 Lymph % (Auto) 9.1 % (13.4-35.0) L 09/11/18 05:17 [place] % (Auto) 4.7 % (0.0-7.3) 09/11/18 05:17 Eos % (Auto) 0.3 % (0.0-4.3) 09/11/18 05:17 Baso % (Auto) 0.3 % (0.0-1.8) 09/11/18 05:17 Lymph # 1.7 K/mm3 (1.2-5.4) 09/11/18 05:17 [place] # 0.9 K/mm3 (0.0-0.8) H 09/11/18 05:17 Eos # 0.1 K/mm3 (0.0-0.4) 09/11/18 05:17 Baso # 0.1 K/mm3 (0.0-0.1) 09/11/18 05:17 Seg Neutrophils % 85.6 % (40.0-70.0) H 09/11/18 05:17 Seg Neutrophils # 16.2 K/mm3 (1.8-7.7) H 09/11/18 05:17 Sodium 139 mmol/L (137-145) 09/12/18 04:59 Potassium 3.9 mmol/L (3.6-5.0) 09/12/18 04:59 Chloride 95.6 mmol/L (98-107) L 09/12/18 04:59 Carbon Dioxide 23 mmol/L (22-30) 09/12/18 04:59 24 mmol/L 09/12/18 04:59 BUN 68 mg/dL (9-20) H 09/12/18 04:59 4.5 mg/dL (0.8-1.5) H D 09/12/18 04:59 Estimated GFR 13 ml/min 09/12/18 04:59 15 % 09/12/18 04:59 Glucose 108 mg/dL (75-100) H 09/12/18 04:59 5.5 % (4-6) 09/10/18 10:44 Lactic Acid 1.90 mmol/L (0.7-2.0) 09/10/18 11:22 Calcium 8.9 mg/dL (8.4-10.2) 09/12/18 04:59 0.40 mg/dL (0.1-1.2) 09/11/18 05:17 AST 33 units/L (5-40) 09/11/18 05:17 ALT 41 units/L (7-56) 09/11/18 05:17 75 units/L (35-129) 09/11/18 05:17 30.0 umol/L (25-60) 09/10/18 10:44 0.232 ng/mL (0.00-0.029) H* 09/11/18 17:26 7.7 g/dL (6.3-8.2) 09/11/18 05:17 3.0 g/dL (3.9-5) L 09/11/18 05:17 0.6 % 09/11/18 05:17 Triglycerides 126 mg/dL (2-149) 09/10/18 10:44 Cholesterol 109 mg/dL (50-199) 09/10/18 10:44 59 mg/dL (50-130) 09/10/18 10:44 28 mg/dL (40-59) L 09/10/18 10:44 3.89 % 09/10/18 10:44 72 units/L (13-60) H 09/10/18 10:44 TSH 1.530 mlU/mL (0.270-4.200) 09/10/18 10:44 Straw (Yellow) 09/10/18 11:45 Clear (Clear) 09/10/18 11:45 7.0 (5.0-7.0) 09/10/18 11:45 Ur Specific [place] 1.006 (1.003-1.030) 09/10/18 11:45 100 mg/dl mg/dL (Negative) 09/10/18 11:45 50 mg/dL (Negative) 09/10/18 11:45 Neg mg/dL (Negative) 09/10/18 11:45 Neg (Negative) 09/10/18 11:45 Neg (Negative) 09/10/18 11:45 Neg (Negative) 09/10/18 11:45 < 2.0 mg/dL (<2.0) 09/10/18 11:45 Ur Leukocyte Esterase Neg (Negative) 09/10/18 11:45 < 1.0 /HPF (0.0-6.0) 09/10/18 11:45 < 1.0 /HPF (0.0-6.0) 09/10/18 11:45 U Epithel Cells (Auto) < 1.0 /HPF (0-13.0) 09/10/18 11:45 Active Medications - Current Medications Current Medications: Generic Name Dose Route Start Last Admin Trade Name Freq PRN Reason Stop Dose Admin Acetaminophen 650 mg 09/10/18 21:48 09/12/18 06:41 Tylenol PO 650 mg Q4H PRN Administration Pain MILD(1-3)/Fever >100.5/SALDAÑA Lipase/Protease/Amylase 1 each 09/11/18 15:[address] 10,500 Unit FEEDTUBE PRN PRN For Clogged Feeding Tube Epoetin Kartik 10,000 unit 09/10/18 14:51 Procrit IV MICHAELA PRN hemodialysis Escitalopram Oxalate 5 mg 09/11/18 10:00 09/12/18 09:00 Lexapro PO 5 mg QDAY NIYA Administration Heparin Sodium (Porcine) 5,000 unit 09/11/18 10:00 09/12/18 09:00 Heparin SUB-Q 5,000 unit Q12HR NIYA Administration Hydromorphone HCl 0.25 mg 09/10/18 21:49 Dilaudid IV Q3H PRN Pain, Moderate (4-6) Hydroxyzine Pamoate 25 mg 09/10/18 22:00 09/12/18 14:56 Vistaril PO 25 mg Q8H NIYA Administration Sodium Chloride 100 mls @ 999 mls/hr 09/10/18 14:50 Nacl 0.9% IV MICHAELA PRN Hypotension Cefepime HCl 1 gm in 100 mls @ 200 mls/hr 09/11/18 19:00 09/12/18 09:00 Maxipime/Ns 1 Gm/100 Ml IV 200 mls/hr Q24HR NIYA Administration Protocol Metoclopramide HCl 5 mg 09/10/18 22:27 09/11/18 22:00 Reglan IV 5 mg Q6H PRN Administration Nausea And Vomiting Metoprolol Tartrate 25 mg 09/10/18 22:00 09/12/18 10:11 Lopressor PO Not Given BID NIYA Ondansetron HCl 4 mg 09/10/18 22:00 09/12/18 14:56 Zofran Odt PO 4 mg Q8HR NIYA Administration Ondansetron HCl 4 mg 09/10/18 21:49 09/11/18 15:33 Zofran IV 4 mg Q8H PRN Administration Nausea And Vomiting Pantoprazole Sodium 40 mg 09/11/18 08:00 09/12/18 09:00 Protonix IV 40 mg QDAY NIYA Administration Polyethylene Glycol 17 gm 09/12/18 10:00 09/12/18 09:01 Miralax 3350 FEEDTUBE 17 gm QDAY NIYA Administration Promethazine HCl 25 mg 09/10/18 21:48 Phenergan PO Q6HR PRN Nausea Quetiapine Fumarate 25 mg 09/10/18 22:00 09/12/18 09:00 Seroquel PO 25 mg BID NIYA Administration Simple Syrup 15 ml 09/11/18 15:16 Simple Syrup FEEDTUBE PRN PRN Hypoglycemia Simple Syrup 30 ml 09/11/18 15:16 Simple Syrup FEEDTUBE PRN PRN Hypoglycemia Sodium Bicarbonate 325 mg 09/11/18 15:16 Sodium Bicarbonate FEEDTUBE PRN PRN For Clogged Feeding Tube Sodium Chloride 10 ml 09/10/18 22:00 09/12/18 09:02 Sodium Chloride Flush Syringe 10 Ml IV 10 ml BID NIYA Administration Sodium Chloride 10 ml 09/10/18 21:49 Sodium Chloride Flush Syringe 10 Ml IV PRN PRN LINE FLUSH Nutrition/Malnutrition Assess - Dietary Evaluation Nutrition/Malnutrition Findings: Nutrition Notes Start: 09/11/18 16:22 Freq: Status: Active Protocol: Document 09/11/18 16:22 PRUDENCIO (Rec: 09/11/18 16:33 PRUDENCIO [id number] [email or web address]) Nutrition Notes Need for Assessment generated from: MD Order,devil dog,MST Initial or Follow up Assessment Current Diagnosis CKD (stage V CKD),Diabetes, Hypertension,Heart Failure Other Pertinent Diagnosis Acute encephalopathy, acute gastritis Current Diet No diet ordered Labs/Tests BUN 40 Cr 2.8 Pertinent Medications Zofran, Protonix Height 5 ft Weight 52.889 kg [place] Body Weight (kg) 48.18 BMI 22.7 Subjective/Other Information RD consulted for TF. Pt also screened for malnutrition risk , chewing difficulty and hx of receiving NTR support. Pt from [facility]; has PEG and receives Nepro at [facility]. Burn Absent Trauma Absent #1 Nutrition Diagnosis Inadequate oral intake Etiology chewing/swallowing difficulty, encephalopathy As Evidenced by Signs and Symptoms pt NPO and requires EN support to meet nutrient needs Is patient on ventilator? No Is Patient Ambulatory and/or Out of Bed No REE-([facility]-confined to bed) 1375.656 Kcal/Kg value to use for calculation 29 Approximate Energy Requirements Using 1534 kcal/Kg Calculation Used for Recommendations Kcal/kg Additional Notes Pro needs 1.2-1.4g/k-74g/ day Fluid needs 1-1.5L/day Nutrition Intervention Nutrition Support: Nepro at 35ml/hr with 150ml water flush q4h. Kcal 1,512 Protein (gm) 68 Carbohydrates (gm) 135 Fat (gm) 81 Fluid (mL) 611 Fiber (gm) 11 Goal #1 TF tolerance Goal #2 TF at goal to meet at least 75 % energy and pro needs Anticipated Discharge Needs: Continue Nepro at 35ml/hr with scheduled water flushes Follow-Up By: 09/13/18 Additional Comments F/U: new TF
--- NOTE | 2018-09-12 15:36 | XRay Report ---
Comparison of the current study with the prior examination of 09/10/18 shows no appreciable interval change.
--- NOTE | 2018-09-12 17:11 | Progress Note ---
Assessment and Plan - Patient Problems (1) Acute encephalopathy Current Visit: Yes Status: Acute Plan to address problem: Altered mental status etiology uncertain. Possibly related to sepsis. Cultures are pending. Mental status improved (2) Leukocytosis Current Visit: Yes Status: Acute Plan to address problem: Concerned about sepsis. With permacath I am definitely concerned about line related sepsis. Follow blood cultures. Continue empiric antibiotics. (3) ESRD needing dialysis Current Visit: Yes Status: Chronic Plan to address problem: Resume hemodialysis 3 times a week (4) Anemia in chronic kidney disease Current Visit: No Status: Acute Plan to address problem: Give Erythropoetin on dialysis (5) Hypertensive chronic kidney disease with stage 5 chronic kidney disease or end stage renal disease Current Visit: No Status: Acute Plan to address problem: Follow-up blood pressure on dialysis Subjective Date of service: 09/12/18 Principal diagnosis: end-stage renal disease with altered mental status Interval history: Patient seen lying in bed. He awakens today. He says a few words and they are appropriate. Objective - Exam Narrative Exam: Chronically ill-looking Elderly male lying in bed in no acute distress HEENT: NCAT, pink oral mucous membrane Neck: Supple, no venous distention CVS: S1S2 RRR with no murmur, rub or gallop Chest: Clear to auscultation Abdomen: Scaphoid, soft, nontender, no organomegaly, bowel sounds are present Extremities: No edema, muscle wasting Skin warm and dry with no rash Genitourinary deferred Neuro: Opens eyes to speech, says a few words which are appropriate - Vital Signs Vital signs: Vital Signs - 12hr 09/12/18 09/12/18 09/12/18 06:00 06:40 06:41 Temperature Pulse Rate Respiratory 20 20 Rate Respiratory 20 Rate [ Generalized] Blood Pressure Blood Pressure [Left] O2 Sat by Pulse 100 Oximetry 09/12/18 09/12/18 09/12/18 07:41 07:56 10:00 Temperature 98.2 F 96.7 F L Pulse Rate 76 71 Respiratory 20 16 16 Rate Respiratory Rate [ Generalized] Blood Pressure 121/66 Blood Pressure 100/55 [Left] O2 Sat by Pulse 100 Oximetry 09/12/18 09/12/18 09/12/18 10:15 10:30 10:38 Temperature Pulse Rate 81 107 H 96 H Respiratory Rate Respiratory Rate [ Generalized] Blood Pressure 99/66 74/42 73/39 Blood Pressure [Left] O2 Sat by Pulse Oximetry 09/12/18 09/12/18 09/12/18 10:41 10:45 11:00 Temperature Pulse Rate 94 H 92 H 96 H Respiratory Rate Respiratory Rate [ Generalized] Blood Pressure 83/59 94/60 104/65 Blood Pressure [Left] O2 Sat by Pulse Oximetry 09/12/18 09/12/18 09/12/18 11:15 11:22 11:30 Temperature Pulse Rate 96 H 104 H Respiratory Rate Respiratory Rate [ Generalized] Blood Pressure 114/69 103/66 Blood Pressure [Left] O2 Sat by Pulse 100 Oximetry 09/12/18 09/12/18 09/12/18 11:45 12:00 12:23 Temperature Pulse Rate 100 H 102 H 89 Respiratory Rate Respiratory Rate [ Generalized] Blood Pressure 108/69 112/69 139/89 Blood Pressure [Left] O2 Sat by Pulse Oximetry 09/12/18 09/12/18 09/12/18 12:30 12:45 13:00 Temperature Pulse Rate 90 96 H 102 H Respiratory Rate Respiratory Rate [ Generalized] Blood Pressure 140/75 131/70 130/79 Blood Pressure [Left] O2 Sat by Pulse Oximetry 09/12/18 09/12/18 09/12/18 13:15 13:30 13:40 Temperature 97.0 F L Pulse Rate 100 H 115 H 111 H Respiratory 16 Rate Respiratory Rate [ Generalized] Blood Pressure 120/72 115/71 144/83 Blood Pressure [Left] O2 Sat by Pulse Oximetry 09/12/18 14:50 Temperature 100.1 F H Pulse Rate 104 H Respiratory 16 Rate Respiratory Rate [ Generalized] Blood Pressure Blood Pressure 127/69 [Left] O2 Sat by Pulse 98 Oximetry - Lab 09/12/18 04:59 09/12/18 04:59 Most recent lab results Calcium 8.9 mg/dL (8.4-10.2) 09/12/18 04:59 Medications & Allergies - Medications Allergies/Adverse Reactions: Allergies No Known Allergies Allergy (Verified 12/15/17 17:22) Home Medications: Home Medications Medication Instructions Recorded Confirmed Last Taken Type Acetaminophen [Acetaminophen TAB] 650 mg PO Q4H PRN #30 tablet 02/16/18 09/10/18 Unknown Rx Escitalopram Oxalate [Lexapro] 5 mg PO QDAY 09/10/18 09/10/18 Unknown History Famotidine [Pepcid] 20 mg PO BID 09/10/18 09/10/18 Unknown History Lactobacillus Acidophilus 1 each PO DAILY 09/10/18 09/10/18 Unknown History [Acidophilus Lactobacilli] Metoprolol [Lopressor] 25 mg PO BID 09/10/18 09/10/18 Unknown History Ondansetron [Zofran Odt] 4 mg PO Q8HR 09/10/18 09/10/18 Unknown History Promethazine [Phenergan] 25 mg PO Q6HR PRN 09/10/18 09/10/18 Unknown History QUEtiapine [SEROquel] 25 mg PO BID 09/10/18 09/10/18 Unknown History hydrOXYzine PAMOATE [Vistaril] 25 mg PO Q8H 09/10/18 09/10/18 Unknown History Active Medications: Generic Name Dose Route Start Last Admin Trade Name Freq PRN Reason Stop Dose Admin Acetaminophen 650 mg 09/10/18 21:48 09/12/18 06:41 Tylenol PO 650 mg Q4H PRN Administration Pain MILD(1-3)/Fever >100.5/[place] Lipase/Protease/Amylase 1 each 09/11/18 15:[address] 10,500 Unit FEEDTUBE PRN PRN For Clogged Feeding Tube Epoetin Kartik 10,000 unit 09/10/18 14:51 09/12/18 13:10 Procrit IV 10,000 unit MICHAELA PRN Administration hemodialysis Escitalopram Oxalate 5 mg 09/11/18 10:00 09/12/18 09:00 Lexapro PO 5 mg QDAY NIYA Administration Heparin Sodium (Porcine) 5,000 unit 09/11/18 10:00 09/12/18 09:00 Heparin SUB-Q 5,000 unit Q12HR NIYA Administration Hydromorphone HCl 0.25 mg 09/10/18 21:49 Dilaudid IV Q3H PRN Pain, Moderate (4-6) Hydroxyzine Pamoate 25 mg 09/10/18 22:00 09/12/18 14:56 Vistaril PO 25 mg Q8H NIYA Administration Sodium Chloride 100 mls @ 999 mls/hr 09/10/18 14:50 Nacl 0.9% IV MICHAELA PRN Hypotension Cefepime HCl 1 gm in 100 mls @ 200 mls/hr 09/11/18 19:00 09/12/18 09:00 Maxipime/Ns 1 Gm/100 Ml IV 200 mls/hr Q24HR NIYA Administration Protocol Metoclopramide HCl 5 mg 09/10/18 22:27 09/11/18 22:00 Reglan IV 5 mg Q6H PRN Administration Nausea And Vomiting Metoprolol Tartrate 25 mg 09/10/18 22:00 09/12/18 10:11 Lopressor PO Not Given BID NIYA Ondansetron HCl 4 mg 09/10/18 22:00 09/12/18 14:56 Zofran Odt PO 4 mg Q8HR NIYA Administration Ondansetron HCl 4 mg 09/10/18 21:49 09/11/18 15:33 Zofran IV 4 mg Q8H PRN Administration Nausea And Vomiting Pantoprazole Sodium 40 mg 09/11/18 08:00 09/12/18 09:00 Protonix IV 40 mg QDAY NIYA Administration Polyethylene Glycol 17 gm 09/12/18 10:00 09/12/18 09:01 Miralax 3350 FEEDTUBE 17 gm QDAY NIYA Administration Promethazine HCl 25 mg 09/10/18 21:48 Phenergan PO Q6HR PRN Nausea Quetiapine Fumarate 25 mg 09/10/18 22:00 09/12/18 09:00 Seroquel PO 25 mg BID NIYA Administration Simple Syrup 15 ml 09/11/18 15:16 Simple Syrup FEEDTUBE PRN PRN Hypoglycemia Simple Syrup 30 ml 09/11/18 15:16 Simple Syrup FEEDTUBE PRN PRN Hypoglycemia Sodium Bicarbonate 325 mg 09/11/18 15:16 Sodium Bicarbonate FEEDTUBE PRN PRN For Clogged Feeding Tube Sodium Chloride 10 ml 09/10/18 22:00 09/12/18 09:02 Sodium Chloride Flush Syringe 10 Ml IV 10 ml BID NIYA Administration Sodium Chloride 10 ml 09/10/18 21:49 Sodium Chloride Flush Syringe 10 Ml IV PRN PRN LINE FLUSH
[2018-09-13] MEDS: ZOFRAN ODT PO SCH ×3 (06:00→23:44)
[2018-09-13 06:55] LABS: Hematocrit 29.7 % (35.5-45.6); Hemoglobin 9.5 gm/dl (11.8-15.2); Mean Corpuscular HGB Conc 32 % (32-34); Mean Corpuscular Volume 88 fl (84-94); Platelet Count 407 K/mm3 (140-440); Red Blood Count 3.37 M/mm3 (3.65-5.03)
[2018-09-13 07:17] LABS: Calcium 8.6 mg/dL (8.4-10.2)
[2018-09-13] MEDS ORDERED: VANCOMYCIN/NS 1 GM/250 ML 1 GM/250 ML BAG IV ONE (09:00)
[2018-09-13] MEDS: HEPARIN SUB-Q SCH ×2 (09:13→23:36)
[2018-09-13] MEDS: MIRALAX 3350 FEEDTUBE SCH (09:14)
[2018-09-13] MEDS: PROTONIX IV SCH (09:14)
[2018-09-13] MEDS: LOPRESSOR PO SCH ×2 (09:14→23:39)
[2018-09-13] MEDS: LEXAPRO PO SCH (09:14)
[2018-09-13] MEDS: SODIUM CHLORIDE FLUSH SYRINGE 10 ML IV SCH ×2 (09:15→23:44)
[2018-09-13] MEDS: MAXIPIME/NS 1 GM/100 ML 1 GM/100 ML BAG IV SCH (10:12)
[2018-09-13] MEDS: VISTARIL PO SCH ×3 (15:20→23:42)
--- NOTE | 2018-09-13 15:51 | Progress Note ---
Assessment and Plan - Patient Problems (1) Acute encephalopathy Current Visit: Yes Status: Acute Plan to address problem: Altered mental status etiology uncertain. Suspect toxic encephalopathic related to sepsis. Cultures are pending. Mental status has improved (2) Leukocytosis Current Visit: Yes Status: Acute Plan to address problem: Concerned about sepsis. With permacath I am definitely concerned about line related sepsis. Follow blood cultures. Continue empiric antibiotics. (3) ESRD needing dialysis Current Visit: Yes Status: Chronic Plan to address problem: Resume hemodialysis 3 times a week (4) Anemia in chronic kidney disease Current Visit: No Status: Acute Plan to address problem: Give Erythropoetin on dialysis (5) Hypertensive chronic kidney disease with stage 5 chronic kidney disease or end stage renal disease Current Visit: No Status: Acute Plan to address problem: Follow-up blood pressure on dialysis Subjective Date of service: 09/13/18 Principal diagnosis: end-stage renal disease with altered mental status Interval history: Patient seen lying in bed. Patient is much more verbal today. He has no complaints. Denies any pain, nausea or vomiting Objective - Exam Narrative Exam: Chronically ill-looking Elderly male lying in bed in no acute distress HEENT: NCAT, pink oral mucous membrane Neck: Supple, no venous distention CVS: S1S2 RRR with no murmur, rub or gallop Chest: Clear to auscultation Abdomen: Scaphoid, soft, nontender, no organomegaly, bowel sounds are present Extremities: No edema, muscle wasting Skin warm and dry with no rash Genitourinary deferred Neuro: Opens eyes to speech, says a few words which are appropriate - Vital Signs Vital signs: Vital Signs - 12hr 09/13/18 09/13/18 08:06 08:47 Temperature 99.0 F Pulse Rate 84 Respiratory 22 Rate Blood Pressure 105/61 O2 Sat by Pulse 98 100 Oximetry - Lab 09/13/18 05:26 09/13/18 05:26 Most recent lab results Calcium 8.6 mg/dL (8.4-10.2) 09/13/18 05:26 Medications & Allergies - Medications Allergies/Adverse Reactions: Allergies No Known Allergies Allergy (Verified 12/15/17 17:22) Home Medications: Home Medications Medication Instructions Recorded Confirmed Last Taken Type Acetaminophen [Acetaminophen TAB] 650 mg PO Q4H PRN #30 tablet 02/16/18 09/10/18 Unknown Rx Escitalopram Oxalate [Lexapro] 5 mg PO QDAY 09/10/18 09/10/18 Unknown History Famotidine [Pepcid] 20 mg PO BID 09/10/18 09/10/18 Unknown History Lactobacillus Acidophilus 1 each PO DAILY 09/10/18 09/10/18 Unknown History [Acidophilus Lactobacilli] Metoprolol [Lopressor] 25 mg PO BID 09/10/18 09/10/18 Unknown History Ondansetron [Zofran Odt] 4 mg PO Q8HR 09/10/18 09/10/18 Unknown History Promethazine [Phenergan] 25 mg PO Q6HR PRN 09/10/18 09/10/18 Unknown History QUEtiapine [SEROquel] 25 mg PO BID 09/10/18 09/10/18 Unknown History hydrOXYzine PAMOATE [Vistaril] 25 mg PO Q8H 09/10/18 09/10/18 Unknown History Active Medications: Generic Name Dose Route Start Last Admin Trade Name Onielq PRN Reason Stop Dose Admin Acetaminophen 650 mg 09/10/18 21:48 09/12/18 06:41 Tylenol PO 650 mg Q4H PRN Administration Pain MILD(1-3)/Fever >100.5/[place] Lipase/Protease/Amylase 1 each 09/11/18 15:[address] 10,500 Unit FEEDTUBE PRN PRN For Clogged Feeding Tube Epoetin Kartik 10,000 unit 09/10/18 14:51 09/12/18 13:10 Procrit IV 10,000 unit MICHAELA PRN Administration hemodialysis Escitalopram Oxalate 5 mg 09/11/18 10:00 09/13/18 09:14 Lexapro PO 5 mg QDAY NIYA Administration Heparin Sodium (Porcine) 5,000 unit 09/11/18 10:00 09/13/18 09:13 Heparin SUB-Q 5,000 unit Q12HR NIYA Administration Hydromorphone HCl 0.25 mg 09/10/18 21:49 Dilaudid IV Q3H PRN Pain, Moderate (4-6) Hydroxyzine Pamoate 25 mg 09/10/18 22:00 09/12/18 14:56 Vistaril PO 25 mg Q8H NIYA Administration Sodium Chloride 100 mls @ 999 mls/hr 09/10/18 14:50 Nacl 0.9% IV MIHCAELA PRN Hypotension Cefepime HCl 1 gm in 100 mls @ 200 mls/hr 09/11/18 19:00 09/13/18 10:12 Maxipime/Ns 1 Gm/100 Ml IV 200 mls/hr Q24HR NIYA Administration Protocol Metoclopramide HCl 5 mg 09/10/18 22:27 09/11/18 22:00 Reglan IV 5 mg Q6H PRN Administration Nausea And Vomiting Metoprolol Tartrate 25 mg 09/10/18 22:00 09/13/18 09:14 Lopressor PO 25 mg BID NIYA Administration Ondansetron HCl 4 mg 09/10/18 22:00 09/12/18 22:54 Zofran Odt PO 4 mg Q8HR NIYA Administration Ondansetron HCl 4 mg 09/10/18 21:49 09/11/18 15:33 Zofran IV 4 mg Q8H PRN Administration Nausea And Vomiting Pantoprazole Sodium 40 mg 09/11/18 08:00 09/13/18 09:14 Protonix IV 40 mg QDAY NIYA Administration Polyethylene Glycol 17 gm 09/12/18 10:00 09/13/18 09:14 Miralax 3350 FEEDTUBE 17 gm QDAY NIYA Administration Promethazine HCl 25 mg 09/10/18 21:48 Phenergan PO Q6HR PRN Nausea Quetiapine Fumarate 25 mg 09/10/18 22:00 09/13/18 09:14 Seroquel PO 25 mg BID NIYA Administration Simple Syrup 15 ml 09/11/18 15:16 Simple Syrup FEEDTUBE PRN PRN Hypoglycemia Simple Syrup 30 ml 09/11/18 15:16 Simple Syrup FEEDTUBE PRN PRN Hypoglycemia Sodium Bicarbonate 325 mg 09/11/18 15:16 Sodium Bicarbonate FEEDTUBE PRN PRN For Clogged Feeding Tube Sodium Chloride 10 ml 09/10/18 22:00 09/13/18 09:15 Sodium Chloride Flush Syringe 10 Ml IV 10 ml BID NIYA Administration Sodium Chloride 10 ml 09/10/18 21:49 Sodium Chloride Flush Syringe 10 Ml IV PRN PRN LINE FLUSH
--- NOTE | 2018-09-13 23:08 | Progress Note ---
Assessment and Plan Assessment and plan: Patient is a 67-year-old male admitted with altered mental status, nausea and vomiting x 2. The patient was on his way from [facility] to get dialysis when he started vomiting and had some change in mentation. The patient is currently nonverbal and lethargic and a a poor historian. The patient has a past medical history that includes bipolar disorder, schizophrenia, chronic dysphagia, end-stage renal disease on hemodialysis, GERD, hypertension, congestive heart failure, cardiomyopathy, and there is a listing of previous sepsis and encephalopathy. Per EMS, the patient is usually mostly nonverbal but will usually answer questions if asked, but he is not doing that currently. He has a right-sided dialysis chest catheter and a G-tube. CT HEAD- CHRONIC INFARCTS Acute METABOLIC Encephalopathy secondary to UREMIA Acute Gastritis Constipation-resolved with administration ESRD needing HD HTN BIPOLAR DISORDER GERD Hyperkalemia Leukocytosis >sepsis but no clear source NSTEMI TYPE 2 SECONDARY TO ESRD PLAN: supportive care Concern about line sepsis, Low grade temp,. Obtain Echo TO ENSURE NO PATHOLOGY Nephrology consult INPUT NOTED ?Viral etiology, continue to monitor Outpatient cardiac eval CONTINUE on MiraLAX Antibiotics by clinical haematologist. Monitor blood cultures. Repeat chest x-ray to show no aspiration. Continue antiemetics if WBC begins to improve trending down patient may be able to discharge in am DVT/GI prophy History Interval history: Patient seen and examined, No new complaints. Answers basic question, Hospitalist Physical - Physical exam Narrative exam: VITAL SIGNS: Reviewed. GENERAL: The patient appeared, still lethargic but much improved today.. Vital signs as documented. HEAD: No signs of head trauma. EYES: Pupils are equal. Extraocular motions intact. EARS: Hearing grossly intact. MOUTH: Oropharynx is normal. NECK: No adenopathy, no JVD. CHEST: Chest with clear breath sounds bilaterally. No wheezes, rales, or rh onchi. CARDIAC: Regular rate and rhythm. S1 and S2, without murmurs, gallops, or rubs. VASCULAR: No Edema. Peripheral pulses normal and equal in all extremities. ABDOMEN: Soft, non tender and non distended. PEG tube site no erythema. No rebound or guarding, and no masses palpated. Bowel Sounds normal. MUSCULOSKELETAL: Generalized contractured. Extremities without clubbing, cyanosis or edema. NEUROLOGIC EXAM: Lethargic although awake. Orientation cannot be assessed. No focal sensory or strength deficits. . PSYCHIATRIC: Mood normal. SKIN: No rash or lesions. - Constitutional Vitals: Temp Pulse Resp BP Pulse Ox 98.3 F 84 20 143/71 99 09/13/18 20:17 09/13/18 20:17 09/13/18 20:17 09/13/18 20:16 09/13/18 20:17 General appearance: Present: no acute distress Results - Labs CBC & Chem 7: 09/14/18 05:12 09/14/18 05:12 Labs: Laboratory Last Values WBC 14.3 K/mm3 (4.5-11.0) H 09/13/18 05:26 RBC 3.37 M/mm3 (3.65-5.03) L 09/13/18 05:26 Hgb 9.5 gm/dl (11.8-15.2) L 09/13/18 05:26 Hct 29.7 % (35.5-45.6) L 09/13/18 05:26 MCV 88 fl (84-94) 09/13/18 05:26 MCH 28 pg (28-32) 09/13/18 05:26 MCHC 32 % (32-34) 09/13/18 05:26 RDW 18.0 % (13.2-15.2) H 09/13/18 05:26 Plt Count 407 K/mm3 (140-440) 09/13/18 05:26 Lymph % (Auto) 9.1 % (13.4-35.0) L 09/11/18 05:17 [place] % (Auto) 4.7 % (0.0-7.3) 09/11/18 05:17 Eos % (Auto) 0.3 % (0.0-4.3) 09/11/18 05:17 Baso % (Auto) 0.3 % (0.0-1.8) 09/11/18 05:17 Lymph # 1.7 K/mm3 (1.2-5.4) 09/11/18 05:17 [place] # 0.9 K/mm3 (0.0-0.8) H 09/11/18 05:17 Eos # 0.1 K/mm3 (0.0-0.4) 09/11/18 05:17 Baso # 0.1 K/mm3 (0.0-0.1) 09/11/18 05:17 Seg Neutrophils % 85.6 % (40.0-70.0) H 09/11/18 05:17 Seg Neutrophils # 16.2 K/mm3 (1.8-7.7) H 09/11/18 05:17 Sodium 137 mmol/L (137-145) 09/13/18 05:26 Potassium 3.5 mmol/L (3.6-5.0) L 09/13/18 05:26 Chloride 95.5 mmol/L (98-107) L 09/13/18 05:26 Carbon Dioxide 25 mmol/L (22-30) 09/13/18 05:26 20 mmol/L 09/13/18 05:26 BUN 38 mg/dL (9-20) H 09/13/18 05:26 3.2 mg/dL (0.8-1.5) H 09/13/18 05:26 Estimated GFR 19 ml/min 09/13/18 05:26 12 % 09/13/18 05:26 Glucose 127 mg/dL (75-100) H 09/13/18 05:26 POC Glucose 107 (70-105) H 09/13/18 17:21 5.5 % (4-6) 09/10/18 10:44 Lactic Acid 1.90 mmol/L (0.7-2.0) 09/10/18 11:22 Calcium 8.6 mg/dL (8.4-10.2) 09/13/18 05:26 0.40 mg/dL (0.1-1.2) 09/11/18 05:17 AST 33 units/L (5-40) 09/11/18 05:17 ALT 41 units/L (7-56) 09/11/18 05:17 75 units/L (35-129) 09/11/18 05:17 30.0 umol/L (25-60) 09/10/18 10:44 0.232 ng/mL (0.00-0.029) H* 09/11/18 17:26 7.7 g/dL (6.3-8.2) 09/11/18 05:17 3.0 g/dL (3.9-5) L 09/11/18 05:17 0.6 % 09/11/18 05:17 Triglycerides 126 mg/dL (2-149) 09/10/18 10:44 Cholesterol 109 mg/dL (50-199) 09/10/18 10:44 59 mg/dL (50-130) 09/10/18 10:44 28 mg/dL (40-59) L 09/10/18 10:44 3.89 % 09/10/18 10:44 72 units/L (13-60) H 09/10/18 10:44 TSH 1.530 mlU/mL (0.270-4.200) 09/10/18 10:44 Straw (Yellow) 09/10/18 11:45 Clear (Clear) 09/10/18 11:45 7.0 (5.0-7.0) 09/10/18 11:45 Ur Specific [place] 1.006 (1.003-1.030) 09/10/18 11:45 100 mg/dl mg/dL (Negative) 09/10/18 11:45 50 mg/dL (Negative) 09/10/18 11:45 Neg mg/dL (Negative) 09/10/18 11:45 Neg (Negative) 09/10/18 11:45 Neg (Negative) 09/10/18 11:45 Neg (Negative) 09/10/18 11:45 < 2.0 mg/dL (<2.0) 09/10/18 11:45 Ur Leukocyte Esterase Neg (Negative) 09/10/18 11:45 < 1.0 /HPF (0.0-6.0) 09/10/18 11:45 < 1.0 /HPF (0.0-6.0) 09/10/18 11:45 U Epithel Cells (Auto) < 1.0 /HPF (0-13.0) 09/10/18 11:45 Active Medications - Current Medications Current Medications: Generic Name Dose Route Start Last Admin Trade Name Freq PRN Reason Stop Dose Admin Acetaminophen 650 mg 09/10/18 21:48 09/12/18 06:41 Tylenol PO 650 mg Q4H PRN Administration Pain MILD(1-3)/Fever >100.5/[place] Lipase/Protease/Amylase 1 each 09/11/18 15:[address] 10,500 Unit FEEDTUBE PRN PRN For Clogged Feeding Tube Epoetin Kartik 10,000 unit 09/10/18 14:51 09/12/18 13:10 Procrit IV 10,000 unit MICHAELA PRN Administration hemodialysis Escitalopram Oxalate 5 mg 09/11/18 10:00 09/13/18 09:14 Lexapro PO 5 mg QDAY NIYA Administration Heparin Sodium (Porcine) 5,000 unit 09/11/18 10:00 09/13/18 09:13 Heparin SUB-Q 5,000 unit Q12HR NIYA Administration Hydromorphone HCl 0.25 mg 09/10/18 21:49 Dilaudid IV Q3H PRN Pain, Moderate (4-6) Hydroxyzine Pamoate 25 mg 09/10/18 22:00 09/13/18 15:20 Vistaril PO 25 mg Q8H NIYA Administration Sodium Chloride 100 mls @ 999 mls/hr 09/10/18 14:50 Nacl 0.9% IV MICHAELA PRN Hypotension Cefepime HCl 1 gm in 100 mls @ 200 mls/hr 09/11/18 19:00 09/13/18 10:42 Maxipime/Ns 1 Gm/100 Ml IV Infused Q24HR NIYA Infusion Protocol Metoclopramide HCl 5 mg 09/10/18 22:27 09/11/18 22:00 Reglan IV 5 mg Q6H PRN Administration Nausea And Vomiting Metoprolol Tartrate 25 mg 09/10/18 22:00 09/13/18 09:14 Lopressor PO 25 mg BID NIYA Administration Ondansetron HCl 4 mg 09/10/18 22:00 09/13/18 15:20 Zofran Odt PO 4 mg Q8HR NIYA Administration Ondansetron HCl 4 mg 09/10/18 21:49 09/11/18 15:33 Zofran IV 4 mg Q8H PRN Administration Nausea And Vomiting Pantoprazole Sodium 40 mg 09/11/18 08:00 09/13/18 09:14 Protonix IV 40 mg QDAY NIYA Administration Polyethylene Glycol 17 gm 09/12/18 10:00 09/13/18 09:14 Miralax 3350 FEEDTUBE 17 gm QDAY NIYA Administration Promethazine HCl 25 mg 09/10/18 21:48 Phenergan PO Q6HR PRN Nausea Quetiapine Fumarate 25 mg 09/10/18 22:00 09/13/18 09:14 Seroquel PO 25 mg BID NIYA Administration Simple Syrup 15 ml 09/11/18 15:16 Simple Syrup FEEDTUBE PRN PRN Hypoglycemia Simple Syrup 30 ml 09/11/18 15:16 Simple Syrup FEEDTUBE PRN PRN Hypoglycemia Sodium Bicarbonate 325 mg 09/11/18 15:16 Sodium Bicarbonate FEEDTUBE PRN PRN For Clogged Feeding Tube Sodium Chloride 10 ml 09/10/18 22:00 09/13/18 09:15 Sodium Chloride Flush Syringe 10 Ml IV 10 ml BID NIYA Administration Sodium Chloride 10 ml 09/10/18 21:49 Sodium Chloride Flush Syringe 10 Ml IV PRN PRN LINE FLUSH Nutrition/Malnutrition Assess - Dietary Evaluation Nutrition/Malnutrition Findings: Nutrition Notes Start: 09/11/18 16:22 Freq: Status: Active Protocol: Document 09/13/18 17:50 RM (Rec: 09/13/18 17:53 RM [id number]) Nutrition Notes Initial or Follow up Reassessment Current Diagnosis CKD (stage V CKD),Diabetes, Hypertension,Heart Failure Other Pertinent Diagnosis ESRD on HD,Acute encephalopathy, acute gastritis Current Diet Nepro at 35 ml/hr Labs/Tests Reviewed Pertinent Medications Reviewed Height 5 ft Weight 52.889 kg [place] Body Weight (kg) 48.18 BMI 22.7 Subjective/Other Information Observed Nepro infusing at goal rate. Percent of energy/protein needs met: 99%/100% Burn Absent Trauma Absent #1 Nutrition Diagnosis Inadequate oral intake Diagnosis Progress(for reassessment Continues documentation) Is patient on ventilator? No Is Patient Ambulatory and/or Out of Bed No REE-([place]-confined to bed) 1375.656 Kcal/Kg value to use for calculation 29 Approximate Energy Requirements Using 1534 kcal/Kg Calculation Used for Recommendations Kcal/kg Additional Notes Pro needs 1.2-1.4g/k-74g/ day Fluid needs 1-1.5L/day Nutrition Intervention Nutrition Support: Nepro at 35ml/hr with 150ml water flush q4h. Kcal 1,512 Protein (gm) 68 Carbohydrates (gm) 135 Fat (gm) 81 Fluid (mL) 611 Fiber (gm) 11 Goal #1 TF tolerance Goal #2 TF at goal to continue to meet at least 75% energy and pro needs Anticipated Discharge Needs: Continue Nepro at 35ml/hr with scheduled water flushes Follow-Up By: 09/19/18 Additional Comments Follow for TF tolerance
[2018-09-14 05:27] LABS: Hematocrit 29.9 % (35.5-45.6); Hemoglobin 9.7 gm/dl (11.8-15.2); Mean Corpuscular HGB Conc 33 % (32-34); Mean Corpuscular Volume 86 fl (84-94); Platelet Count 391 K/mm3 (140-440); Red Blood Count 3.47 M/mm3 (3.65-5.03); Red Cell Distribution Width 17.8 % (13.2-15.2)
[2018-09-14 05:51] LABS: Calcium 8.5 mg/dL (8.4-10.2)
--- NOTE | 2018-09-14 07:54 | Progress Note ---
Assessment and Plan Assessment and plan: Patient is a 67-year-old male admitted with altered mental status, nausea and vomiting x 2. The patient was on his way from [facility] to get dialysis when he started vomiting and had some change in mentation. The patient is currently nonverbal and lethargic and a a poor historian. The patient has a past medical history that includes bipolar disorder, schizophrenia, chronic dysphagia, end-stage renal disease on hemodialysis, GERD, hypertension, congestive heart failure, cardiomyopathy, and there is a listing of previous sepsis and encephalopathy. Per EMS, the patient is usually mostly nonverbal but will usually answer questions if asked, but he is not doing that currently. He has a right-sided dialysis chest catheter and a G-tube. CT HEAD- CHRONIC INFARCTS Acute METABOLIC Encephalopathy secondary to UREMIA Acute Gastritis Constipation-resolved with administration ESRD needing HD HTN BIPOLAR DISORDER GERD Hyperkalemia Leukocytosis >sepsis but no clear source NSTEMI TYPE 2 SECONDARY TO ESRD PLAN: supportive care Concern about line sepsis, AWAIT ECHO, OBTAIN ID CONSULT Low grade temp,. Obtain Echo TO ENSURE NO PATHOLOGY Nephrology consult INPUT NOTED ?Viral etiology, continue to monitor Outpatient cardiac eval CONTINUE on MiraLAX Antibiotics by service coordinator elderly facility. Monitor blood cultures. Repeat chest x-ray to show no aspiration. Continue antiemetics if WBC begins to improve trending down patient may be able to discharge in am DVT/GI prophy History Interval history: Patient seen and examined, No new complaints. Answers basic question, Hospitalist Physical - Physical exam Narrative exam: VITAL SIGNS: Reviewed. GENERAL: The patient appeared, still lethargic but much improved today.. Vital signs as documented. HEAD: No signs of head trauma. EYES: Pupils are equal. Extraocular motions intact. EARS: Hearing grossly intact. MOUTH: Oropharynx is normal. NECK: No adenopathy, no JVD. CHEST: Chest with clear breath sounds bilaterally. No wheezes, rales, or rhonchi. CARDIAC: Regular rate and rhythm. S1 and S2, without murmurs, gallops, or rubs. VASCULAR: No Edema. Peripheral pulses normal and equal in all extremities. ABDOMEN: Soft, non tender and non distended. PEG tube site no erythema. No rebound or guarding, and no masses palpated. Bowel Sounds normal. MUSCULOSKELETAL: Generalized contractured. Extremities without clubbing, cyanosis or edema. NEUROLOGIC EXAM: Lethargic although awake. Orientation cannot be assessed. No focal sensory or strength deficits. . PSYCHIATRIC: Mood normal. SKIN: No rash or lesions. - Constitutional Vitals: Temp Pulse Resp BP Pulse Ox 98.3 F 84 20 143/71 100 09/13/18 20:17 09/13/18 23:39 09/13/18 20:17 09/13/18 23:39 09/14/18 03:33 General appearance: Present: no acute distress Results - Labs CBC & Chem 7: 09/14/18 05:12 09/14/18 05:12 Labs: Laboratory Last Values WBC 12.1 K/mm3 (4.5-11.0) H 09/14/18 05:12 RBC 3.47 M/mm3 (3.65-5.03) L 09/14/18 05:12 Hgb 9.7 gm/dl (11.8-15.2) L 09/14/18 05:12 Hct 29.9 % (35.5-45.6) L 09/14/18 05:12 MCV 86 fl (84-94) 09/14/18 05:12 MCH 28 pg (28-32) 09/14/18 05:12 MCHC 33 % (32-34) 09/14/18 05:12 RDW 17.8 % (13.2-15.2) H 09/14/18 05:12 Plt Count 391 K/mm3 (140-440) 09/14/18 05:12 Lymph % (Auto) 9.1 % (13.4-35.0) L 09/11/18 05:17 [place] % (Auto) 4.7 % (0.0-7.3) 09/11/18 05:17 Eos % (Auto) 0.3 % (0.0-4.3) 09/11/18 05:17 Baso % (Auto) 0.3 % (0.0-1.8) 09/11/18 05:17 Lymph # 1.7 K/mm3 (1.2-5.4) 09/11/18 05:17 [place] # 0.9 K/mm3 (0.0-0.8) H 09/11/18 05:17 Eos # 0.1 K/mm3 (0.0-0.4) 09/11/18 05:17 Baso # 0.1 K/mm3 (0.0-0.1) 09/11/18 05:17 Seg Neutrophils % 85.6 % (40.0-70.0) H 09/11/18 05:17 Seg Neutrophils # 16.2 K/mm3 (1.8-7.7) H 09/11/18 05:17 Sodium 135 mmol/L (137-145) L 09/14/18 05:12 Potassium 4.0 mmol/L (3.6-5.0) 09/14/18 05:12 Chloride 93.5 mmol/L (98-107) L 09/14/18 05:12 Carbon Dioxide 25 mmol/L (22-30) 09/14/18 05:12 21 mmol/L 09/14/18 05:12 BUN 55 mg/dL (9-20) H 09/14/18 05:12 4.3 mg/dL (0.8-1.5) H 09/14/18 05:12 Estimated GFR 14 ml/min 09/14/18 05:12 13 % 09/14/18 05:12 Glucose 126 mg/dL (75-100) H 09/14/18 05:12 POC Glucose 134 (70-105) H 09/14/18 06:35 5.5 % (4-6) 09/10/18 10:44 Lactic Acid 1.90 mmol/L (0.7-2.0) 09/10/18 11:22 Calcium 8.5 mg/dL (8.4-10.2) 09/14/18 05:12 0.40 mg/dL (0.1-1.2) 09/11/18 05:17 AST 33 units/L (5-40) 09/11/18 05:17 ALT 41 units/L (7-56) 09/11/18 05:17 75 units/L (35-129) 09/11/18 05:17 30.0 umol/L (25-60) 09/10/18 10:44 0.232 ng/mL (0.00-0.029) H* 09/11/18 17:26 7.7 g/dL (6.3-8.2) 09/11/18 05:17 3.0 g/dL (3.9-5) L 09/11/18 05:17 0.6 % 09/11/18 05:17 Triglycerides 126 mg/dL (2-149) 09/10/18 10:44 Cholesterol 109 mg/dL (50-199) 09/10/18 10:44 59 mg/dL (50-130) 09/10/18 10:44 28 mg/dL (40-59) L 09/10/18 10:44 3.89 % 09/10/18 10:44 72 units/L (13-60) H 09/10/18 10:44 TSH 1.530 mlU/mL (0.270-4.200) 09/10/18 10:44 Straw (Yellow) 09/10/18 11:45 Clear (Clear) 09/10/18 11:45 7.0 (5.0-7.0) 09/10/18 11:45 Ur Specific [place] 1.006 (1.003-1.030) 09/10/18 11:45 100 mg/dl mg/dL (Negative) 09/10/18 11:45 50 mg/dL (Negative) 09/10/18 11:45 Neg mg/dL (Negative) 09/10/18 11:45 Neg (Negative) 09/10/18 11:45 Neg (Negative) 09/10/18 11:45 Neg (Negative) 09/10/18 11:45 < 2.0 mg/dL (<2.0) 09/10/18 11:45 Ur Leukocyte Esterase Neg (Negative) 09/10/18 11:45 < 1.0 /HPF (0.0-6.0) 09/10/18 11:45 < 1.0 /HPF (0.0-6.0) 09/10/18 11:45 U Epithel Cells (Auto) < 1.0 /HPF (0-13.0) 09/10/18 11:45 Random Vancomycin 22.7 ug/mL (0-40.0) 09/14/18 05:12 Active Medications - Current Medications Current Medications: Generic Name Dose Route Start Last Admin Trade Name Freq PRN Reason Stop Dose Admin Acetaminophen 650 mg 09/10/18 21:48 09/12/18 06:41 Tylenol PO 650 mg Q4H PRN Administration Pain MILD(1-3)/Fever >100.5/SALDAÑA Lipase/Protease/Amylase 1 each 09/11/18 15:16 Pancreaze 10,500 Unit FEEDTUBE PRN PRN For Clogged Feeding Tube Epoetin Kartik 10,000 unit 09/10/18 14:51 09/12/18 13:10 Procrit IV 10,000 unit MICHAELA PRN Administration hemodialysis Escitalopram Oxalate 5 mg 09/11/18 10:00 09/13/18 09:14 Lexapro PO 5 mg QDAY NIYA Administration Heparin Sodium (Porcine) 5,000 unit 09/11/18 10:00 09/13/18 23:36 Heparin SUB-Q 5,000 unit Q12HR NIYA Administration Hydromorphone HCl 0.25 mg 09/10/18 21:49 Dilaudid IV Q3H PRN Pain, Moderate (4-6) Hydroxyzine Pamoate 25 mg 09/10/18 22:00 09/13/18 23:42 Vistaril PO 25 mg Q8H NIYA Administration Sodium Chloride 100 mls @ 999 mls/hr 09/10/18 14:50 Nacl 0.9% IV MICHAELA PRN Hypotension Cefepime HCl 1 gm in 100 mls @ 200 mls/hr 09/11/18 19:00 09/13/18 10:42 Maxipime/Ns 1 Gm/100 Ml IV Infused Q24HR NIYA Infusion Protocol Metoclopramide HCl 5 mg 09/10/18 22:27 09/11/18 22:00 Reglan IV 5 mg Q6H PRN Administration Nausea And Vomiting Metoprolol Tartrate 25 mg 09/10/18 22:00 09/13/18 23:39 Lopressor PO 25 mg BID NIYA Administration Ondansetron HCl 4 mg 09/10/18 22:00 09/13/18 23:44 Zofran Odt PO 4 mg Q8HR NIYA Administration Ondansetron HCl 4 mg 09/10/18 21:49 09/11/18 15:33 Zofran IV 4 mg Q8H PRN Administration Nausea And Vomiting Pantoprazole Sodium 40 mg 09/11/18 08:00 09/13/18 09:14 Protonix IV 40 mg QDAY NIYA Administration Polyethylene Glycol 17 gm 09/12/18 10:00 09/13/18 09:14 Miralax 3350 FEEDTUBE 17 gm QDAY NIYA Administration Promethazine HCl 25 mg 09/10/18 21:48 Phenergan PO Q6HR PRN Nausea Quetiapine Fumarate 25 mg 09/10/18 22:00 09/13/18 23:39 Seroquel PO 25 mg BID NIYA Administration Simple Syrup 15 ml 09/11/18 15:16 Simple Syrup FEEDTUBE PRN PRN Hypoglycemia Simple Syrup 30 ml 09/11/18 15:16 Simple Syrup FEEDTUBE PRN PRN Hypoglycemia Sodium Bicarbonate 325 mg 09/11/18 15:16 Sodium Bicarbonate FEEDTUBE PRN PRN For Clogged Feeding Tube Sodium Chloride 10 ml 09/10/18 22:00 09/13/18 23:44 Sodium Chloride Flush Syringe 10 Ml IV 10 ml BID NIYA Administration Sodium Chloride 10 ml 09/10/18 21:49 Sodium Chloride Flush Syringe 10 Ml IV PRN PRN LINE FLUSH Nutrition/Malnutrition Assess - Dietary Evaluation Nutrition/Malnutrition Findings: Nutrition Notes Start: 09/11/18 16:22 Freq: Status: Active Protocol: Document 09/13/18 17:50 RM (Rec: 09/13/18 17:53 RM [id number]) Nutrition Notes Initial or Follow up Reassessment Current Diagnosis CKD (stage V CKD),Diabetes, Hypertension,Heart Failure Other Pertinent Diagnosis ESRD on HD,Acute encephalopathy, acute gastritis Current Diet Nepro at 35 ml/hr Labs/Tests Reviewed Pertinent Medications Reviewed Height 5 ft Weight 52.889 kg [place] Body Weight (kg) 48.18 BMI 22.7 Subjective/Other Information Observed Nepro infusing at goal rate. Percent of energy/protein needs met: 99%/100% Burn Absent Trauma Absent #1 Nutrition Diagnosis Inadequate oral intake Diagnosis Progress(for reassessment Continues documentation) Is patient on ventilator? No Is Patient Ambulatory and/or Out of Bed No REE-([facility]-confined to bed) 1375.656 Kcal/Kg value to use for calculation 29 Approximate Energy Requirements Using 1534 kcal/Kg Calculation Used for Recommendations Kcal/kg Additional Notes Pro needs 1.2-1.4g/k-74g/ day Fluid needs 1-1.5L/day Nutrition Intervention Nutrition Support: Nepro at 35ml/hr with 150ml water flush q4h. Kcal 1,512 Protein (gm) 68 Carbohydrates (gm) 135 Fat (gm) 81 Fluid (mL) 611 Fiber (gm) 11 Goal #1 TF tolerance Goal #2 TF at goal to continue to meet at least 75% energy and pro needs Anticipated Discharge Needs: Continue Nepro at 35ml/hr with scheduled water flushes Follow-Up By: 09/19/18 Additional Comments Follow for TF tolerance
--- NOTE | 2018-09-14 08:39 | Progress Note ---
Assessment and Plan - Patient Problems (1) Acute encephalopathy Current Visit: Yes Status: Acute Plan to address problem: Altered mental status etiology uncertain. Suspect toxic encephalopathic related to sepsis. Cultures are negative so far. Mental status has improved back to normal (2) Leukocytosis Current Visit: Yes Status: Acute Plan to address problem: Concerned about sepsis. With permacath I was definitely concerned about line related sepsis. Blood cultures negative so far. Continue empiric antibiotics. (3) ESRD needing dialysis Current Visit: Yes Status: Chronic Plan to address problem: Continue hemodialysis 3 times a week (4) Anemia in chronic kidney disease Current Visit: No Status: Acute Plan to address problem: Give Erythropoetin on dialysis (5) Hypertensive chronic kidney disease with stage 5 chronic kidney disease or end stage renal disease Current Visit: No Status: Acute Plan to address problem: Follow-up blood pressure on dialysis Subjective Date of service: 09/14/18 Principal diagnosis: end-stage renal disease with altered mental status Interval history: Patient seen lying in bed. He has no complaints. Denies any pain, nausea or vo miting Objective - Exam Narrative Exam: Chronically ill-looking Elderly male lying in bed in no acute distress HEENT: NCAT, pink oral mucous membrane Neck: Supple, no venous distention CVS: S1S2 RRR with no murmur, rub or gallop Chest: Clear to auscultation Abdomen: Scaphoid, soft, nontender, no organomegaly, bowel sounds are present Extremities: No edema, muscle wasting Skin warm and dry with no rash Genitourinary deferred Neuro: Opens eyes to speech, says a few words which are appropriate - Vital Signs Vital signs: Vital Signs - 12hr 09/13/18 09/14/18 09/14/18 23:39 03:33 07:50 Temperature 97.8 F Pulse Rate 84 78 Respiratory 18 Rate Blood Pressure 143/71 118/53 O2 Sat by Pulse 100 98 Oximetry - Lab 09/14/18 05:12 09/14/18 05:12 Most recent lab results Calcium 8.5 mg/dL (8.4-10.2) 09/14/18 05:12 Medications & Allergies - Medications Allergies/Adverse Reactions: Allergies No Known Allergies Allergy (Verified 12/15/17 17:22) Home Medications: Home Medications Medication Instructions Recorded Confirmed Last Taken Type Acetaminophen [Acetaminophen TAB] 650 mg PO Q4H PRN #30 tablet 02/16/18 09/10/18 Unknown Rx Escitalopram Oxalate [Lexapro] 5 mg PO QDAY 09/10/18 09/10/18 Unknown History Famotidine [Pepcid] 20 mg PO BID 09/10/18 09/10/18 Unknown History Lactobacillus Acidophilus 1 each PO DAILY 09/10/18 09/10/18 Unknown History [Acidophilus Lactobacilli] Metoprolol [Lopressor] 25 mg PO BID 09/10/18 09/10/18 Unknown History Ondansetron [Zofran Odt] 4 mg PO Q8HR 09/10/18 09/10/18 Unknown History Promethazine [Phenergan] 25 mg PO Q6HR PRN 09/10/18 09/10/18 Unknown History QUEtiapine [SEROquel] 25 mg PO BID 09/10/18 09/10/18 Unknown History hydrOXYzine PAMOATE [Vistaril] 25 mg PO Q8H 09/10/18 09/10/18 Unknown History Active Medications: Generic Name Dose Route Start Last Admin Trade Name Freq PRN Reason Stop Dose Admin Acetaminophen 650 mg 09/10/18 21:48 09/12/18 06:41 Tylenol PO 650 mg Q4H PRN Administration Pain MILD(1-3)/Fever >100.5/[place] Lipase/Protease/Amylase 1 each 09/11/18 15:[address] 10,500 Unit FEEDTUBE PRN PRN For Clogged Feeding Tube Epoetin Kartik 10,000 unit 09/10/18 14:51 09/12/18 13:10 Procrit IV 10,000 unit MICHAELA PRN Administration hemodialysis Escitalopram Oxalate 5 mg 09/11/18 10:00 09/13/18 09:14 Lexapro PO 5 mg QDAY NIYA Administration Heparin Sodium (Porcine) 5,000 unit 09/11/18 10:00 09/13/18 23:36 Heparin SUB-Q 5,000 unit Q12HR NIYA Administration Hydromorphone HCl 0.25 mg 09/10/18 21:49 Dilaudid IV Q3H PRN Pain, Moderate (4-6) Hydroxyzine Pamoate 25 mg 09/10/18 22:00 09/13/18 23:42 Vistaril PO 25 mg Q8H NIYA Administration Sodium Chloride 100 mls @ 999 mls/hr 09/10/18 14:50 Nacl 0.9% IV MICHAELA PRN Hypotension Cefepime HCl 1 gm in 100 mls @ 200 mls/hr 09/11/18 19:00 09/13/18 10:42 Maxipime/Ns 1 Gm/100 Ml IV Infused Q24HR NIYA Infusion Protocol Lansoprazole 30 mg 09/14/18 10:00 Prevacid Solutab FEEDTUBE QDAY NIYA Metoclopramide HCl 5 mg 09/10/18 22:27 09/11/18 22:00 Reglan IV 5 mg Q6H PRN Administration Nausea And Vomiting Metoprolol Tartrate 25 mg 09/10/18 22:00 09/13/18 23:39 Lopressor PO 25 mg BID NIYA Administration Ondansetron HCl 4 mg 09/10/18 22:00 09/13/18 23:44 Zofran Odt PO 4 mg Q8HR NIYA Administration Ondansetron HCl 4 mg 09/10/18 21:49 09/11/18 15:33 Zofran IV 4 mg Q8H PRN Administration Nausea And Vomiting Polyethylene Glycol 17 gm 09/12/18 10:00 09/13/18 09:14 Miralax 3350 FEEDTUBE 17 gm QDAY NIYA Administration Promethazine HCl 25 mg 09/10/18 21:48 Phenergan PO Q6HR PRN Nausea Quetiapine Fumarate 25 mg 09/10/18 22:00 09/13/18 23:39 Seroquel PO 25 mg BID NIYA Administration Simple Syrup 15 ml 09/11/18 15:16 Simple Syrup FEEDTUBE PRN PRN Hypoglycemia Simple Syrup 30 ml 09/11/18 15:16 Simple Syrup FEEDTUBE PRN PRN Hypoglycemia Sodium Bicarbonate 325 mg 09/11/18 15:16 Sodium Bicarbonate FEEDTUBE PRN PRN For Clogged Feeding Tube Sodium Chloride 10 ml 09/10/18 22:00 09/13/18 23:44 Sodium Chloride Flush Syringe 10 Ml IV 10 ml BID NIYA Administration Sodium Chloride 10 ml 09/10/18 21:49 Sodium Chloride Flush Syringe 10 Ml IV PRN PRN LINE FLUSH
--- NOTE | 2018-09-14 10:42 | Consultation ---
History of Present Illness - Reason for Consult Consult date: 09/14/18 Leukocytoisis from unknown source Requesting physician: HENRIK JAIMES - History of Present Illness This patient is a 67-year-old male with a past medical history of bipolar disorder, schizophrenia, chronic dysphagia, end-stage renal disease on HD, GERD, hypertension, CHF and cardiomyopathy. He is known to ID from pervious admission on 12/15/2017 for worsening leukocytosis, abdominal distention and loose stools and C-diff. He was discharged on PO vancomycin for 14 days. He was brought to the ED on 09/10/18 for AMS, nausea and vomiting X2. He was on his way from [facility] to get HD when he started vomiting and had a change in mentation. On admission WBC14.1, Creatinine 3.2, Temperature 97.6, HR 94 , BP 151/85. U/A w/o pyuria, LE negative. Head CT shows volume loss, chronic white matter changes and chronic focal infarcts. Chest xray shows no consolidation. Abdomen and pelvis xray show fecal retention. No acute abdominal process. Blood cultures show no growth thus far. Review of Systems: General: no fever chills, nightsweats, unintentional weight change Cutaneous: no rash, pruritus Head: no headaches or injury Eyes: no changes in vision, eye pain, double vision Ears: no ear pain, ear discharge, ringing or hearing loss Nose: no nose bleeding, stuffiness Mouth & throat: no bleeding gums, no horseness, no dental problems, or swollen glands Neck: no pain, node enlargement/lumps, tyroid enlargement or tenderness Respiratory: no cough, wheezing, sputum, hemoptysis, pleuritic chest pain Cardiovascular: no chest pain, leg edema, cyanosis, [place], orthopnea Musculoskeletal: no decreased joint motion, bone or joint pain, joint swelling, muscle aches Gastrointestinal: nausea, no vomiting + constipation Neurogical: no seizures, no headaches, no weakness, no paresthesias, Psychiatric: stable mood; no excessive anxiety, sadness or moodiness Past History Past Medical History: DVT, ESRD, GERD, heart failure, hypertension, other (bipolar disorder, schizophrenia, chronic dysphagia) Past Surgical History: Other (permacath placement) Social history: denies: smoking, alcohol abuse, prescription drug abuse, IV drug use Family history: no significant family history (unable to obtain) Medications and Allergies Allergies Allergy/AdvReac Type Severity Reaction Status Date / Time No Known Allergies Allergy Verified 12/15/17 17:22 Home Medications Medication Instructions Recorded Confirmed Last Taken Type Acetaminophen [Acetaminophen TAB] 650 mg PO Q4H PRN #30 tablet 02/16/18 09/10/18 Unknown Rx Escitalopram Oxalate [Lexapro] 5 mg PO QDAY 09/10/18 09/10/18 Unknown History Famotidine [Pepcid] 20 mg PO BID 09/10/18 09/10/18 Unknown History Lactobacillus Acidophilus 1 each PO DAILY 09/10/18 09/10/18 Unknown History [Acidophilus Lactobacilli] Metoprolol [Lopressor] 25 mg PO BID 09/10/18 09/10/18 Unknown History Ondansetron [Zofran Odt] 4 mg PO Q8HR 09/10/18 09/10/18 Unknown History Promethazine [Phenergan] 25 mg PO Q6HR PRN 09/10/18 09/10/18 Unknown History QUEtiapine [SEROquel] 25 mg PO BID 09/10/18 09/10/18 Unknown History hydrOXYzine PAMOATE [Vistaril] 25 mg PO Q8H 09/10/18 09/10/18 Unknown History Active Meds: Active Medications Acetaminophen (Tylenol) 650 mg PO Q4H PRN PRN Reason: Pain MILD(1-3)/Fever >100.5/SALDAÑA Last Admin: 09/12/18 06:41 Dose: 650 mg Documented by: Lipase/Protease/Amylase (Pancreashlie Miller 10,500 Unit) 1 each FEEDTUBE PRN PRN PRN Reason: For Clogged Feeding Tube Epoetin Kartik (Procrit) 10,000 unit IV MICHAELA PRN PRN Reason: hemodialysis Last Admin: 09/12/18 13:10 Dose: 10,000 unit Documented by: Escitalopram Oxalate (Lexapro) 5 mg PO QDAY [facility] Last Admin: 09/13/18 09:14 Dose: 5 mg Documented by: Heparin Sodium (Porcine) (Heparin) 5,000 unit SUB-Q Q12HR [facility] Last Admin: 09/13/18 23:36 Dose: 5,000 unit Documented by: Hydromorphone HCl (Dilaudid) 0.25 mg IV Q3H PRN PRN Reason: Pain, Moderate (4-6) Hydroxyzine Pamoate (Vistaril) 25 mg PO Q8H [facility] Last Admin: 09/13/18 23:42 Dose: 25 mg Documented by: Sodium Chloride (Nacl 0.9%) 100 mls @ 999 mls/hr IV MICHAELA PRN PRN Reason: Hypotension Cefepime HCl (Maxipime/Ns 1 Gm/100 Ml) 1 gm in 100 mls @ 200 mls/hr IV Q24HR [facility]; Protocol Last Infusion: 09/13/18 10:42 Dose: Infused Documented by: Lansoprazole (Prevacid Solutab) 30 mg FEEDTUBE QDAY [facility] Metoclopramide HCl (Reglan) 5 mg IV Q6H PRN PRN Reason: Nausea And Vomiting Last Admin: 09/11/18 22:00 Dose: 5 mg Documented by: Metoprolol Tartrate (Lopressor) 25 mg PO BID [facility] Last Admin: 09/13/18 23:39 Dose: 25 mg Documented by: Ondansetron HCl (Zofran Odt) 4 mg PO Q8HR [facility] Last Admin: 09/13/18 23:44 Dose: 4 mg Documented by: Ondansetron HCl (Zofran) 4 mg IV Q8H PRN PRN Reason: Nausea And Vomiting Last Admin: 09/11/18 15:33 Dose: 4 mg Documented by: Polyethylene Glycol (Miralax 3350) 17 gm FEEDTUBE QDAY [facility] Last Admin: 09/13/18 09:14 Dose: 17 gm Documented by: Promethazine HCl (Phenergan) 25 mg PO Q6HR PRN PRN Reason: Nausea Quetiapine Fumarate (Seroquel) 25 mg PO BID [facility] Last Admin: 09/13/18 23:39 Dose: 25 mg Documented by: Simple Syrup (Simple Syrup) 15 ml FEEDTUBE PRN PRN PRN Reason: Hypoglycemia Simple Syrup (Simple Syrup) 30 ml FEEDTUBE PRN PRN PRN Reason: Hypoglycemia Sodium Bicarbonate (Sodium Bicarbonate) 325 mg FEEDTUBE PRN PRN PRN Reason: For Clogged Feeding Tube Sodium Chloride (Sodium Chloride Flush Syringe 10 Ml) 10 ml IV BID [facility] Last Admin: 09/13/18 23:44 Dose: 10 ml Documented by: Sodium Chloride (Sodium Chloride Flush Syringe 10 Ml) 10 ml IV PRN PRN PRN Reason: LINE FLUSH Physical Examination - Physical Exam Narrative exam: Constitutional: Alert, cooperative. No acute distress Head, Ears, Nose: Normocephalic, atraumatic. External ears, nose normal Eyes: Conjunctivae/corneas clear. No icterus. No ptosis. Neck: Supple, no meningeal signs Oral: dentition fair, no thrush Cardiovascular: S1, S2 normal. Respiratory: Good air entry, clear to auscultation bilaterally GI: Soft, non-tender; bowel sounds normal. No peritoneal signs, +G-tube Musculoskeletal: No pedal edema, no cyanosis.. Left arm fistula +thrill Skin: Scarred raised bilateral arm rash Hem/Lymphatic: No palpable cervical or supraclavicular nodes. No lymphangitis Psych: Mood ok. Affect normal Neurological: Awake, alert, follows simple command. Right chest permacath - Constitutional Vitals: Vital Signs Temp Pulse Resp BP Pulse Ox 97.6 F 75 18 97/67 96 09/14/18 09:25 09/14/18 10:30 09/14/18 09:25 09/14/18 10:30 09/14/18 09:25 Temperature -Last 24 Hours Temperature 97.6 F Temperature 97.8 F Temperature 98.3 F Temperature 98.2 F Results - Labs CBC & Chem 7: 09/14/18 05:12 09/14/18 05:12 Labs: Abnormal lab results 09/13/18 09/13/18 09/14/18 Range/Units 11:48 17:21 00:17 WBC (4.5-11.0) K/mm3 RBC (3.65-5.03) M/mm3 Hgb (11.8-15.2) gm/dl Hct (35.5-45.6) % RDW (13.2-15.2) % Sodium (137-145) mmol/L Chloride (98-107) mmol/L BUN (9-20) mg/dL Creatinine (0.8-1.5) mg/dL Glucose (75-100) mg/dL POC Glucose 139 H 107 H 122 H (70-105) 09/14/18 09/14/18 09/14/18 Range/Units 05:12 05:12 06:35 WBC 12.1 H (4.5-11.0) K/mm3 RBC 3.47 L (3.65-5.03) M/mm3 Hgb 9.7 L (11.8-15.2) gm/dl Hct 29.9 L (35.5-45.6) % RDW 17.8 H (13.2-15.2) % Sodium 135 L (137-145) mmol/L Chloride 93.5 L (98-107) mmol/L BUN 55 H (9-20) mg/dL Creatinine 4.3 H (0.8-1.5) mg/dL Glucose 126 H (75-100) mg/dL POC Glucose 134 H (70-105) - Imaging and Cardiology Chest x-ray: report reviewed (no consolidation) Abdominal x-ray: report reviewed ( fecal retention. No acute abdominal process) Assessment and Plan Cultures: 09/12/18 Blood; no growth to date A/P: 67-year-old male with a past medical history of bipolar disorder, schizophrena, chronic dysphagia, end-stage renal disease on HD, GERD, hypertension, CHF and cardiomyopathy. He is known to ID from previous admission on 12/15/2017 for worsening leukocytosis, abdominal distension and loose stools and C-diff. He was discharged on PO vancomycin for 14 days. He was brought to the ED on 09/10/18 for AMS, nausea and vomiting X2. He was on his way from [facility] to get HD when he started vomiting and had a change in mentation.. Admitted with: 1. Persistent Leukocytosis . on admission and continuing., etiology unknown., ? stercoral colitis vs allergic reaction of unknown cause. Blood cultures show no growth to date. U/A neg. CXR no consolidation.. Low grade fever noted for 48 hours, now resolved.. . Currently being treated with Cefepime. 2. Annular target lesions: scarred raised bilateral arm rash. Target lesions vs allergic reaction.. 3. Stercoral colitis : Abdomen and pelvis xray show fecal retention. No acute abdominal process. 4. Acute metabolic encephalopathy: secondary to uremia, better 5. Bipolar disorder 6. ESRD on HD: Plan: Discontinue cefepime -follow-up blood cultures -Monitor WBC -monitor off antibiotics Dr. Rosenberg will be environmental engineering assistant this weekend [phone], please call for questions. [facility] M: [phone] O:[phone]
[2018-09-14] MEDS: PROCRIT IV PRN (11:47)
[2018-09-14] MEDS: PREVACID SOLUTAB FEEDTUBE SCH (13:21)
[2018-09-14] MEDS: HEPARIN SUB-Q SCH ×2 (13:21→22:21)
[2018-09-14] MEDS: MIRALAX 3350 FEEDTUBE SCH (13:22)
[2018-09-14] MEDS: MAXIPIME/NS 1 GM/100 ML 1 GM/100 ML BAG IV SCH (13:22)
[2018-09-14] MEDS: LEXAPRO PO SCH (13:22)
[2018-09-14] MEDS: VISTARIL PO SCH (13:23)
[2018-09-14] MEDS: LOPRESSOR PO SCH ×2 (13:23→22:12)
[2018-09-14] MEDS: SODIUM CHLORIDE FLUSH SYRINGE 10 ML IV SCH (13:24)
[2018-09-14] MEDS: ZOFRAN ODT PO SCH ×2 (13:26→22:11)
[2018-09-15 06:13] LABS: Hematocrit 31.2 % (35.5-45.6); Hemoglobin 10.3 gm/dl (11.8-15.2); Mean Corpuscular HGB Conc 33 % (32-34); Mean Corpuscular Volume 87 fl (84-94); Platelet Count 369 K/mm3 (140-440); Red Blood Count 3.58 M/mm3 (3.65-5.03); Red Cell Distribution Width 17.9 % (13.2-15.2)
[2018-09-15 06:32] LABS: Calcium 8.9 mg/dL (8.4-10.2)
--- NOTE | 2018-09-15 06:38 | Progress Note ---
Assessment and Plan - Patient Problems (1) Acute encephalopathy Current Visit: Yes Status: Acute Plan to address problem: Altered mental status etiology uncertain. Suspect toxic encephalopathic related to sepsis. Cultures are negative so far. Mental status has improved back to normal (2) Leukocytosis Current Visit: Yes Status: Acute Plan to address problem: Concerned about sepsis. With permacath I was definitely concerned about line related sepsis. Blood cultures negative so far. Continue empiric antibiotics. (3) ESRD needing dialysis Current Visit: Yes Status: Chronic Plan to address problem: Continue hemodialysis 3 times a week (4) Anemia in chronic kidney disease Current Visit: No Status: Acute Plan to address problem: Give Erythropoetin on dialysis (5) Hypertension Current Visit: Yes Status: Acute Qualifiers: Hypertension type: essential hypertension Qualified Code(s): I10 - Essential (primary) hypertension Plan to address problem: Follow-up blood pressure on dialysis Subjective Date of service: 09/15/18 Principal diagnosis: end-stage renal disease with altered mental status Interval history: Pt awake, alert, in no acute distress. Objective - Vital Signs Vital signs: Vital Signs - 12hr 09/14/18 09/14/18 09/14/18 20:02 21:38 22:12 Temperature 98.3 F Pulse Rate 89 89 Respiratory 18 Rate Blood Pressure 135/76 135/76 O2 Sat by Pulse 100 98 Oximetry 09/15/18 03:15 Temperature 98.4 F Pulse Rate 73 Respiratory 18 Rate Blood Pressure 123/69 O2 Sat by Pulse 99 Oximetry - General Appearance General appearance: well-developed, appears stated age, chronically ill EENT: ATNC, PERRL, mucous membranes moist Neck: no JVD Respiratory: Present: Clear to Ascultation Cardiology: regular, S1S2 Gastrointestinal: normoactive bowel sounds Integumentary: no rash, other (no edema ) Neurologic: no focal deficit, alert and oriented x3, strength 5/5, CN 3-12 intact Psychiatric: mood/affect appropriate, cooperative - Lab 09/15/18 05:26 09/15/18 05:26 Most recent lab results Calcium 8.9 mg/dL (8.4-10.2) 09/15/18 05:26 Medications & Allergies - Medications Allergies/Adverse Reactions: Allergies No Known Allergies Allergy (Verified 12/15/17 17:22) Home Medications: Home Medications Medication Instructions Recorded Confirmed Last Taken Type Acetaminophen [Acetaminophen TAB] 650 mg PO Q4H PRN #30 tablet 02/16/18 09/10/18 Unknown Rx Escitalopram Oxalate [Lexapro] 5 mg PO QDAY 09/10/18 09/10/18 Unknown History Famotidine [Pepcid] 20 mg PO BID 09/10/18 09/10/18 Unknown History Lactobacillus Acidophilus 1 each PO DAILY 09/10/18 09/10/18 Unknown History [Acidophilus Lactobacilli] Metoprolol [Lopressor] 25 mg PO BID 09/10/18 09/10/18 Unknown History Ondansetron [Zofran Odt] 4 mg PO Q8HR 09/10/18 09/10/18 Unknown History Promethazine [Phenergan] 25 mg PO Q6HR PRN 09/10/18 09/10/18 Unknown History QUEtiapine [SEROquel] 25 mg PO BID 09/10/18 09/10/18 Unknown History hydrOXYzine PAMOATE [Vistaril] 25 mg PO Q8H 09/10/18 09/10/18 Unknown History Active Medications: Generic Name Dose Route Start Last Admin Trade Name Freq PRN Reason Stop Dose Admin Acetaminophen 650 mg 09/10/18 21:48 09/12/18 06:41 Tylenol PO 650 mg Q4H PRN Administration Pain MILD(1-3)/Fever >100.5/SALDAÑA Lipase/Protease/Amylase 1 each 09/11/18 15:16 Pancreazamanda Miller 10,500 Unit FEEDTUBE PRN PRN For Clogged Feeding Tube Epoetin Kartik 10,000 unit 09/10/18 14:51 09/14/18 11:47 Procrit IV 10,000 unit MICHAELA PRN Administration hemodialysis Escitalopram Oxalate 5 mg 09/11/18 10:00 09/14/18 13:22 Lexapro PO 5 mg QDAY NIYA Administration Heparin Sodium (Porcine) 5,000 unit 09/11/18 10:00 09/14/18 22:21 Heparin SUB-Q 5,000 unit Q12HR NIYA Administration Hydromorphone HCl 0.25 mg 09/10/18 21:49 Dilaudid IV Q3H PRN Pain, Moderate (4-6) Hydroxyzine Pamoate 25 mg 09/10/18 22:00 09/14/18 13:23 Vistaril PO 25 mg Q8H NIYA Administration Sodium Chloride 100 mls @ 999 mls/hr 09/10/18 14:50 Nacl 0.9% IV MICHAELA PRN Hypotension Lansoprazole 30 mg 09/14/18 10:00 09/14/18 13:21 Prevacid Solutab FEEDTUBE 30 mg QDAY NIYA Administration Metoclopramide HCl 5 mg 09/10/18 22:27 09/11/18 22:00 Reglan IV 5 mg Q6H PRN Administration Nausea And Vomiting Metoprolol Tartrate 25 mg 09/10/18 22:00 09/14/18 22:12 Lopressor PO 25 mg BID NIYA Administration Ondansetron HCl 4 mg 09/10/18 22:00 09/14/18 22:11 Zofran Odt PO 4 mg Q8HR NIYA Administration Ondansetron HCl 4 mg 09/10/18 21:49 09/11/18 15:33 Zofran IV 4 mg Q8H PRN Administration Nausea And Vomiting Polyethylene Glycol 17 gm 09/12/18 10:00 09/14/18 13:22 Miralax 3350 FEEDTUBE 17 gm QDAY NIYA Administration Promethazine HCl 25 mg 09/10/18 21:48 Phenergan PO Q6HR PRN Nausea Quetiapine Fumarate 25 mg 09/10/18 22:00 09/14/18 22:11 Seroquel PO 25 mg BID NIYA Administration Simple Syrup 15 ml 09/11/18 15:16 Simple Syrup FEEDTUBE PRN PRN Hypoglycemia Simple Syrup 30 ml 09/11/18 15:16 Simple Syrup FEEDTUBE PRN PRN Hypoglycemia Sodium Bicarbonate 325 mg 09/11/18 15:16 Sodium Bicarbonate FEEDTUBE PRN PRN For Clogged Feeding Tube Sodium Chloride 10 ml 09/10/18 22:00 09/14/18 13:24 Sodium Chloride Flush Syringe 10 Ml IV 10 ml BID NIYA Administration Sodium Chloride 10 ml 09/10/18 21:49 Sodium Chloride Flush Syringe 10 Ml IV PRN PRN LINE FLUSH
--- NOTE | 2018-09-15 07:51 | Discharge Summary ---
Providers - Providers Date of Admission: 09/10/18 13:30 Attending physician: HENRIK JAIMES MD 09/10/18 13:08 Consult to Physician [CONS] Routine Comment: LYNDA Consulting Provider: ABHINAV HOOD Physician Instructions: CONSULT WAS CALLED TO /SUSAN Reason For Exam: dialysis 09/11/18 08:22 Physical Therapy Evaluation and Treat [CONS] Routine Comment: Reason For Exam: EVAL /RX 09/11/18 08:23 Occupational Therapy Evaluate and Treat [CONS] Routine Comment: Reason For Exam: OT EVAL /RX 09/11/18 08:24 Speech Therapy Evaluation and Treat [CONS] Routine Reason For Exam: ST EVAL /RX 09/11/18 12:19 Consult to Dietitian/Nutrition [CONS] Routine Physician Instructions: 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 Reason for Consult: Write/Manage Tube Feeding 09/11/18 15:17 Consult to Dietitian/Nutrition [CONS] Routine Physician Instructions: Assess nutrtn needs, initiate, modify, manage TF Reason For Exam: Reason for Consult: Write/Manage Tube Feeding Reason for Consult: Write/Manage Tube Feeding 09/14/18 07:52 Consult to Physician [CONS] Routine Comment: Consulting Provider: SANJAY WALKER Physician Instructions: Reason For Exam: LEUKOCYTOSIS, UNKNOWN SOURCE Hospitalization Reason for admission: CONSTIPATION Condition: Stable Hospital course: Patient is a 67-year-old male admitted with altered mental status, nausea and vomiting x 2. The patient was on his way from [facility] to get dialysis when he started vomiting and had some change in mentation. The patient is currently nonverbal and lethargic and a a poor historian. The patient has a past medical history that includes bipolar disorder, schizophrenia, chronic dysphagia, end-stage renal disease on hemodialysis, GERD, hypertension, congestive heart failure, cardiomyopathy, and there is a listing of previous sepsis and encephalopathy. Per EMS, the patient is usually mostly nonverbal but will usually answer questions if asked, but he is not doing that currently. He has a right-sided dialysis chest catheter and a G-tube. Patients mental status improved with improvement of metablic syndromes, dialysis and BM. Patient was noted to have elevated Leukocytosis and intermittent low grade fever, cultures were negative, Patient was emperically treated on abx and due to consideration of Line sepsis, ID was consulted with recommendations as noted below. It is anticipated that with the maturity of the AV graft, the permacath will be discontinued soon. Patient known to our service due to previous admission for C diff colitis. Admitted with transient fever and leukocytosis. Initial w/u negative. Severe constipation and impaction s/p disimpaction. Fever resolved, leukocytosis slightly better. Noted on exam recent left arm AVF creation/scar not infected. Also noted bilateral scattered round target type lesions which patient reports is itching ? cutaneous tinea v/s allergic reaction. I do not see any evidence of ongoing bacterial infection, hence will stop cefepime, monitor off antibiotics (history of C diff), antifugal cream to arm lesions CT HEAD- CHRONIC INFARCTS Acute METABOLIC Encephalopathy secondary to UREMIA SIRS without organ dysfunction Acute Gastritis Severe Constipation-resolved ESRD needing HD HTN BIPOLAR DISORDER Hx of C.diff GERD Hyperkalemia Leukocytosis No evidence of sepsis NSTEMI TYPE 2 SECONDARY TO ESRD Disposition: DC/TX-03 SNF [facility] CERT Time spent for discharge: 35 MINS Core Measure Documentation - Palliative Care Palliative Care/ Comfort Measures: Not Applicable - Core Measures Any of the following diagnoses?: none Exam - Physical Exam Narrative exam: VITAL SIGNS: Reviewed. GENERAL: The patient appeared, much improved today. Vital signs as documented. HEAD: No signs of head trauma. EYES: Pupils are equal. Extraocular motions intact. EARS: Hearing grossly intact. MOUTH: Oropharynx is normal. NECK: No adenopathy, no JVD. CHEST: Chest with clear breath sounds bilaterally. No wheezes, rales, or rhonchi. CARDIAC: Regular rate and rhythm. S1 and S2, without murmurs, gallops, or rubs. VASCULAR: No Edema. Peripheral pulses normal and equal in all extremities. ABDOMEN: Soft, non tender and non distended. PEG tube site no erythema. No rebound or guarding, and no masses palpated. Bowel Sounds normal. MUSCULOSKELETAL: Generalized contractured. Extremities without clubbing, cyanosis or edema. NEUROLOGIC EXAM: AWAKE AND ORIENTED TO PERSON, SPEAKS SIMPLE WORDS. No focal sensory or strength deficits. . PSYCHIATRIC: Mood normal. SKIN: No rash or lesions. - Constitutional Vitals: Temp Pulse Resp BP Pulse Ox 98.4 F 73 18 123/69 99 09/15/18 03:15 09/15/18 03:15 09/15/18 03:15 09/15/18 03:15 09/15/18 03:15 Plan Activity: advance as tolerated, fall precautions Diet: renal, per dietitian instruction Special Instructions: record daily weights, record daily BP diary Follow up with: MOISES OCONNOR [Other] - 3-5 Days ABHINAV HOOD MD [Staff Physician] - 7 Days Prescriptions: Polyethylene Glycol 3350 [Miralax 3350] 17 gm FEEDTUBE QDAY #30 powd.pack
[2018-09-15 08:08] VITALS: BP 120/73
[2018-09-15] MEDS: PREVACID SOLUTAB FEEDTUBE SCH (10:18)
[2018-09-15] MEDS: LEXAPRO PO SCH (10:18)
[2018-09-15] MEDS: MIRALAX 3350 FEEDTUBE SCH (10:19)
[2018-09-15] MEDS: LOPRESSOR PO SCH (10:21)
[2018-09-15] MEDS: SODIUM CHLORIDE FLUSH SYRINGE 10 ML IV SCH (10:21)
[2018-09-15] MEDS: HEPARIN SUB-Q SCH (10:21)
== END 2018-09-15 12:16 | DRG 280 ==
LOC: ED 10:01 → 2B-ACE 13:30
PROVIDERS: ADMIT Internal Medicine; ATTEND Internal Medicine
PROC: 5A1D70Z Performance of Urinary Filtration, Intermittent, Less than 6 Hours Per Day (ICD-10-PCS; principal; 2018-09-14)
DX: I21.A1 Myocardial infarction type 2 (principal); G93.41 Metabolic encephalopathy; N18.6 End stage renal disease; R65.10 Systemic inflammatory response syndrome (SIRS) of non-infectious origin without acute organ dysfunction; I13.2 Hypertensive heart and chronic kidney disease with heart failure and with stage 5 chronic kidney disease, or end stage renal disease; I50.22 Chronic systolic (congestive) heart failure; I42.9 Cardiomyopathy, unspecified; K29.00 Acute gastritis without bleeding; K21.9 Gastro-esophageal reflux disease without esophagitis; E87.5 Hyperkalemia; K59.00 Constipation, unspecified; F31.9 Bipolar disorder, unspecified; D63.1 Anemia in chronic kidney disease; Z99.2 Dependence on renal dialysis; Z82.49 Family history of ischemic heart disease and other diseases of the circulatory system; Z93.1 Gastrostomy status
CPT/HCPCS: 36415; 70450; 71045; 74018; 80048; 80053; 80061; 80202; 81001; 82140; 82962; 83036; 83690; 84443; 84484; 85025; 85027; 87040; 93005; 93010; 94760; 96374; G0378; C9113; J0692; J0885; J1644; J2405; J2765; J3370; Q0162; Q0177

== ENCOUNTER 2018-10-09 00:04 | Emergency (ER) | payer MEDICARE ==
--- NOTE | 2018-10-09 03:01 | XRay Report ---
SUPINE ABDOMEN INDICATION: G-tube placement. COMPARISON: 09/11/2018. FINDINGS: Previously seen gastrostomy catheter is not visualized on this exam. No tubes are seen. IMPRESSION: 1. No gastrostomy catheter is visualized. Signer Name: Duke Redd MD Signed: 10/09/2018 2:57 AM Workstation Name: [id number]
--- NOTE | 2018-10-09 03:34 | XRay Report ---
ABDOMEN 2 VIEWS INDICATION: PEG tube placement. COMPARISON: Earlier the same day. FINDINGS: Contrast is seen within the gastrostomy catheter, gastric lumen, and proximal duodenum confirming sat isfactory position. No extravasated contrast is seen. IMPRESSION: 1. Percutaneous gastrostomy is in satisfactory position. Signer Name: Duke Redd MD Signed: 10/09/2018 3:30 AM Workstation Name: [employer]
--- NOTE | 2018-10-09 03:37 | Emergency Department Report ---
ED General Adult HPI - General Chief complaint: Tube Replacement Stated complaint: G TUBE REPLACEMENT Time Seen by Provider: 10/09/18 02:20 Source: patient, EMS Mode of arrival: Stretcher Limitations: No Limitations - History of Present Illness Initial comments: Patient sent from [facility] for malfunctioning PEG tube. PEG tube did not come out, it is currently in place. Triage note states stopped functioning 10/07/18. Patient states stopped working earlier today. -: unknown Location: abdomen Improves with: none Worsens with: none Associated Symptoms: denies other symptoms - Related Data Home Medications Medication Instructions Recorded Confirmed Last Taken Escitalopram Oxalate [Lexapro] 5 mg PO QDAY 09/10/18 09/10/18 Unknown Famotidine [Pepcid] 20 mg PO BID 09/10/18 09/10/18 Unknown Lactobacillus Acidophilus 1 each PO DAILY 09/10/18 09/10/18 Unknown [Acidophilus Lactobacilli] Metoprolol [Lopressor TAB] 25 mg PO BID 09/10/18 09/10/18 Unknown Ondansetron [Zofran ODT TAB] 4 mg PO Q8HR 09/10/18 09/10/18 Unknown Promethazine [Phenergan] 25 mg PO Q6HR PRN 09/10/18 09/10/18 Unknown QUEtiapine [SEROquel] 25 mg PO BID 09/10/18 09/10/18 Unknown hydrOXYzine PAMOATE [Vistaril] 25 mg PO Q8H 09/10/18 09/10/18 Unknown Previous Rx's Medication Instructions Recorded Last Taken Type Acetaminophen [Acetaminophen TAB] 650 mg PO Q4H PRN #30 tablet 02/16/18 Unknown Rx Polyethylene Glycol 3350 [Miralax 17 gm FEEDTUBE QDAY #30 powd.pack 09/15/18 Unknown Rx 3350] Allergies Allergy/AdvReac Type Severity Reaction Status Date / Time No Known Allergies Allergy Verified 12/15/17 17:22 ED Review of Systems ROS: Stated complaint: G TUBE REPLACEMENT Other details as noted in HPI Comment: All other systems reviewed and negative Gastrointestinal: denies: abdominal pain, vomiting ED Past Medical Hx - Past Medical History Previous Medical History?: Yes Hx Hypertension: Yes Hx Congestive Heart Failure: Yes Hx Diabetes: Yes Hx Renal Disease: Yes (Acute renal failure this admission, Dialysis via permacath) Hx Asthma: No Hx COPD: No - Surgical History Past Surgical History?: Yes Additional Surgical History: dialysis port right chest (m/w/f) - Social History Smoking Status: Never Smoker Substance Use Type: None - Medications Home Medications: Home Medications Medication Instructions Recorded Confirmed Last Taken Type Acetaminophen [Acetaminophen TAB] 650 mg PO Q4H PRN #30 tablet 02/16/18 09/10/18 Unknown Rx Escitalopram Oxalate [Lexapro] 5 mg PO QDAY 09/10/18 09/10/18 Unknown History Famotidine [Pepcid] 20 mg PO BID 09/10/18 09/10/18 Unknown History Lactobacillus Acidophilus 1 each PO DAILY 09/10/18 09/10/18 Unknown History [Acidophilus Lactobacilli] Metoprolol [Lopressor TAB] 25 mg PO BID 09/10/18 09/10/18 Unknown History Ondansetron [Zofran ODT TAB] 4 mg PO Q8HR 09/10/18 09/10/18 Unknown History Promethazine [Phenergan] 25 mg PO Q6HR PRN 09/10/18 09/10/18 Unknown History QUEtiapine [SEROquel] 25 mg PO BID 09/10/18 09/10/18 Unknown History hydrOXYzine PAMOATE [Vistaril] 25 mg PO Q8H 09/10/18 09/10/18 Unknown History Polyethylene Glycol 3350 [Miralax 17 gm FEEDTUBE QDAY #30 powd.pack 09/15/18 Unknown Rx 3350] ED Physical Exam - General Limitations: No Limitations General appearance: alert, in no apparent distress - Head Head exam: Present: atraumatic, normocephalic - ENT ENT exam: Present: mucous membranes moist - Neck Neck exam: Present: normal inspection - Respiratory Respiratory exam: Present: normal lung sounds bilaterally. Absent: respiratory distress - Cardiovascular Cardiovascular Exam: Present: regular rate, normal rhythm - GI/Abdominal GI/Abdominal exam: Present: soft, other (PEG tube in place). Absent: distended, tenderness - Extremities Exam Extremities exam: Present: normal inspection - Neurological Exam Neurological exam: Present: alert - Psychiatric Psychiatric exam: Present: normal affect, normal mood - Skin Skin exam: Present: warm, dry, intact, normal color ED Course Vital Signs 10/09/18 10/09/18 10/09/18 02:14 02:16 02:30 Blood Pressure 141/79 142/76 O2 Sat by Pulse 96 97 Oximetry 10/09/18 02:45 Blood Pressure 137/79 O2 Sat by Pulse 90 Oximetry ED Medical Decision Making - Radiology Data Radiology results: report reviewed, image reviewed - Medical Decision Making - PEG tube flushed by RN, states it is functioning - abdominal XR w/ gastrografin shows that PEG is in place - will d/c back to long-term - Differential Diagnosis PEG tube dislodged, PEG tube malfunction Critical care attestation.: If time is entered above; I have spent that time in minutes in the direct care of this critically ill patient, excluding procedure time. ED Disposition Clinical Impression: Encounter for PEG (percutaneous endoscopic gastrostomy) Disposition: - TO HOME OR SELFCARE Is pt being admited?: No Condition: Stable Instructions: How to Use and Care for Your PEG Tube (ED) Referrals: NADEEM BLAKE MD [Primary Care Provider] - 3-5 Days Time of Disposition: 03:38
[2018-10-09 05:30] VITALS: BP 126/92
== END 2018-10-09 05:30 | disposition home or self-care (01) ==
LOC: ED 00:04
DX: Z93.1 Gastrostomy status (principal); I13.0 Hypertensive heart and chronic kidney disease with heart failure and stage 1 through stage 4 chronic kidney disease, or unspecified chronic kidney disease; E11.22 Type 2 diabetes mellitus with diabetic chronic kidney disease; I50.9 Heart failure, unspecified; N18.9 Chronic kidney disease, unspecified; Z99.2 Dependence on renal dialysis
CPT/HCPCS: 74018; 99283; Q9967

== ENCOUNTER 2018-10-21 13:04 | Inpatient (IN) | payer MEDICARE ==
[2018-10-21 14:26] LABS: Basophils # (Auto) 0.1 K/mm3 (0.0-0.1); Eosinophils # (Auto) 0.8 K/mm3 (0.0-0.4); Eosinophils % (Auto) 12.5 % (0.0-4.3); Hemoglobin 11.5 gm/dl (11.8-15.2); Lymphocytes # (Auto) 1.9 K/mm3 (1.2-5.4); Mean Corpuscular HGB Conc 33 % (32-34); Mean Corpuscular Hemoglobin 30 pg (28-32); Mean Corpuscular Volume 92 fl (84-94); Monocytes # (Auto) 0.5 K/mm3 (0.0-0.8); Monocytes % (Auto) 6.8 % (0.0-7.3); Platelet Count 237 K/mm3 (140-440); Red Cell Distribution Width 18.1 % (13.2-15.2)
[2018-10-21] MEDS ORDERED: XYLOCAINE TOPICAL 2% 5ML ONE (14:36)
[2018-10-21 14:37] LABS: Calcium 9.9 mg/dL (8.4-10.2)
--- NOTE | 2018-10-21 15:13 | XRay Report ---
AP abdomen INDICATION: Confirm gastrostomy tube placement FINDINGS: Injection of the indwelling gastrostomy tube shows the tube in good position in the body of the stomach. There is filling of the stomach with contrast as well as the duodenum. No contrast extr avasation is seen. The bowel gas pattern is normal. Signer Name: David Ocampo MD Signed: 10/21/2018 3:09 PM Workstation Name: [id number]
--- NOTE | 2018-10-21 16:30 | Emergency Department Report ---
ED General Adult HPI - General Chief complaint: Tube Replacement Stated complaint: PEG TUBE OUT Time Seen by Provider: 10/21/18 13:46 Source: EMS Mode of arrival: Stretcher Limitations: No Limitations - History of Present Illness Initial comments: 67-year-old man presents with a ruptured Membreno in his gastrostomy site. He can answer questions directly. He has no complaints. He appears to be aware of the purpose of G-tube. He cannot provide any supplemental information however. Apparently, the patient was here on December 10 for G-tube replacement /malfunction. - Related Data Home Medications Medication Instructions Recorded Confirmed Last Taken Escitalopram Oxalate [Lexapro] 5 mg PO QDAY 09/10/18 09/10/18 Unknown Famotidine [Pepcid] 20 mg PO BID 09/10/18 09/10/18 Unknown Lactobacillus Acidophilus 1 each PO DAILY 09/10/18 09/10/18 Unknown [Acidophilus Lactobacilli] Metoprolol [Lopressor TAB] 25 mg PO BID 09/10/18 09/10/18 Unknown Ondansetron [Zofran ODT TAB] 4 mg PO Q8HR 09/10/18 09/10/18 Unknown Promethazine [Phenergan] 25 mg PO Q6HR PRN 09/10/18 09/10/18 Unknown QUEtiapine [SEROquel] 25 mg PO BID 09/10/18 09/10/18 Unknown hydrOXYzine PAMOATE [Vistaril] 25 mg PO Q8H 09/10/18 09/10/18 Unknown Previous Rx's Medication Instructions Recorded Last Taken Type Acetaminophen [Acetaminophen TAB] 650 mg PO Q4H PRN #30 tablet 02/16/18 Unknown Rx Polyethylene Glycol 3350 [Miralax 17 gm FEEDTUBE QDAY #30 powd.pack 09/15/18 Unknown Rx 3350] Allergies Allergy/AdvReac Type Severity Reaction Status Date / Time No Known Allergies Allergy Verified 10/21/18 13:29 ED Review of Systems ROS: Stated complaint: PEG TUBE OUT Other details as noted in HPI Comment: Unobtainable due to pts medical conditions ED Past Medical Hx - Past Medical History Hx Hypertension: Yes Hx Congestive Heart Failure: Yes Hx Diabetes: Yes Hx Renal Disease: Yes (Acute renal failure this admission, Dialysis via permacath) Hx Asthma: No Hx COPD: No - Surgical History Additional Surgical History: dialysis port right chest (m/w/f) - Social History Smoking Status: Never Smoker Substance Use Type: None - Medications Home Medications: Home Medications Medication Instructions Recorded Confirmed Last Taken Type Acetaminophen [Acetaminophen TAB] 650 mg PO Q4H PRN #30 tablet 02/16/18 09/10/18 Unknown Rx Escitalopram Oxalate [Lexapro] 5 mg PO QDAY 09/10/18 09/10/18 Unknown History Famotidine [Pepcid] 20 mg PO BID 09/10/18 09/10/18 Unknown History Lactobacillus Acidophilus 1 each PO DAILY 09/10/18 09/10/18 Unknown History [Acidophilus Lactobacilli] Metoprolol [Lopressor TAB] 25 mg PO BID 09/10/18 09/10/18 Unknown History Ondansetron [Zofran ODT TAB] 4 mg PO Q8HR 09/10/18 09/10/18 Unknown History Promethazine [Phenergan] 25 mg PO Q6HR PRN 09/10/18 09/10/18 Unknown History QUEtiapine [SEROquel] 25 mg PO BID 09/10/18 09/10/18 Unknown History hydrOXYzine PAMOATE [Vistaril] 25 mg PO Q8H 09/10/18 09/10/18 Unknown History Polyethylene Glycol 3350 [Miralax 17 gm FEEDTUBE QDAY #30 powd.pack 09/15/18 Unknown Rx 3350] ED Physical Exam - General Limitations: No Limitations General appearance: alert, in no apparent distress - Head Head exam: Present: atraumatic, normocephalic - Eye Eye exam: Present: normal appearance - ENT ENT exam: Present: mucous membranes moist - Neck Neck exam: Present: normal inspection - Respiratory Respiratory exam: Present: normal lung sounds bilaterally. Absent: respiratory distress - Cardiovascular Cardiovascular Exam: Present: regular rate, normal rhythm. Absent: systolic murmur, diastolic murmur, rubs, gallop - GI/Abdominal GI/Abdominal exam: Present: soft, normal bowel sounds, other (ruptured Membreno in G2 ostomy). Absent: distended, tenderness, guarding, rebound - Rectal Rectal exam: Present: deferred - Extremities Exam Extremities exam: Present: normal inspection - Back Exam Back exam: Present: normal inspection - Neurological Exam Neurological exam: Present: alert - Psychiatric Psychiatric exam: Present: normal mood, flat affect - Skin Skin exam: Present: warm, dry, intact, normal color. Absent: rash ED Course Vital Signs 10/21/18 13:42 Temperature 97.7 F Pulse Rate 80 Respiratory 12 Rate Blood Pressure 155/85 O2 Sat by Pulse 99 Oximetry - Reevaluation(s) Reevaluation #1: The Membreno catheter was successfully removed without difficulty. A #16 gastrostomy tube was placed without difficulty using viscous lidocaine. Procedu re was well tolerated. A G-tube study was performed. 10/21/18 16:29 Reevaluation #2: Patient has become very pre-renal with a slightly rising creatinine. He will be referred to the hospitalist service for IV rehydration and further evaluation and admission. 10/21/18 16:33 ED Medical Decision Making - Lab Data Result diagrams: 10/21/18 13:58 10/21/18 13:58 Laboratory Results - last 24 hr 10/21/18 10/21/18 13:58 13:58 WBC 6.6 RBC 3.80 Hgb 11.5 L Hct 35.0 L MCV 92 MCH 30 MCHC 33 RDW 18.1 H Plt Count 237 Lymph % (Auto) 28.0 [place] % (Auto) 6.8 Eos % (Auto) 12.5 H Baso % (Auto) 1.0 Lymph # 1.9 [place] # 0.5 Eos # 0.8 H Baso # 0.1 Seg Neutrophils % 51.7 Seg Neutrophils # 3.4 Sodium 133 L Potassium 3.6 Chloride 93.3 L Carbon Dioxide 25 Anion Gap 18 BUN 62 H Creatinine 3.4 H Estimated GFR 18 BUN/Creatinine Ratio 18 Glucose 108 H Calcium 9.9 Critical care attestation.: If time is entered above; I have spent that time in minutes in the direct care of this critically ill patient, excluding procedure time. ED Disposition Clinical Impression: Prerenal azotemia, Volume depletion, Malfunction of gastrostomy tube Disposition: OP ADMIT IP TO THIS HOSP Is pt being admited?: Yes Does the pt Need Aspirin: Yes Condition: Stable Referrals: MOISES OOCNNOR MD [Primary Care Provider] - 3-5 Days Time of Disposition: 16:34
[2018-10-21] MEDS ORDERED: NACL 0.9% 1000 ML 1,000 ML IV ONE (16:31)
[2018-10-21] MEDS ORDERED: BABY ASPIRIN FEEDTUBE ONE (16:36)
--- NOTE | 2018-10-21 17:13 | XRay Report ---
CHEST 1 VIEW INDICATION / CLINICAL INFORMATION: hypertension. COMPARISON: 09/12/2018 FINDINGS: SUPPORT DEVICES: Permacath remains on the right unchanged. HEART / MEDIASTINUM: Slightly enlarged but stable. LUNGS / PLEURA: No significant pulmonary or pleural abnormality. No pneumothorax. No effusions. ADDITIONAL FINDINGS: Thoracic aorta is tortuous and ectatic as well as calcified. IMPRESSION: 1. No acute findings. Signer Name: David Ocampo MD Signed: 10/21/2018 5:09 PM Workstation Name: [id number]
[2018-10-21] MEDS ORDERED: SODIUM CHLORIDE FLUSH SYRINGE 10 ML IV PRN (17:26)
[2018-10-21] MEDS ORDERED: TYLENOL PO PRN (17:26)
[2018-10-21] MEDS ORDERED: DILAUDID IV PRN (17:26)
[2018-10-21] MEDS ORDERED: ZOFRAN IV PRN (17:26)
[2018-10-21] MEDS ORDERED: PANCREAZE DR 10,500 UNIT FEEDTUBE PRN (17:37)
[2018-10-21] MEDS ORDERED: SIMPLE SYRUP FEEDTUBE PRN ×2 (17:37)
[2018-10-21] MEDS ORDERED: SODIUM BICARBONATE FEEDTUBE PRN (17:37)
--- NOTE | 2018-10-21 17:53 | History and Physical Report ---
History of Present Illness Date of examination: 10/21/18 History of present illness: 67-year-old man presents with a ruptured Membreno in his gastrostomy site. He can answer questions directly. He has no complaints. He appears to be aware of the purpose of G-tube. He cannot provide any supplemental information however. Apparently, the patient was here on December 10 for G-tube replacement/malfunction. Past Medical History Hypertension: Yes Congestive Heart Failure: Yes Diabetes: Yes Renal Disease: Yes (Acute renal failure this admission, Dialysis via permacath) - Surgical History Additional Surgical History: dialysis port right chest (m/w/f) - Social History Smoking Status: Never Smoker Substance Use Type: None - Medications Home Medications: Home Medications Medication Instructions Recorded Confirmed Last Taken Type Acetaminophen [Acetaminophen TAB] 650 mg PO Q4H PRN #30 tablet 02/16/18 09/10/18 Unknown Rx Escitalopram Oxalate [Lexapro] 5 mg PO QDAY 09/10/18 09/10/18 Unknown History Famotidine [Pepcid] 20 mg PO BID 09/10/18 09/10/18 Unknown History Lactobacillus Acidophilus 1 each PO DAILY 09/10/18 09/10/18 Unknown History [Acidophilus Lactobacilli] Metoprolol [Lopressor TAB] 25 mg PO BID 09/10/18 09/10/18 Unknown History Ondansetron [Zofran ODT TAB] 4 mg PO Q8HR 09/10/18 09/10/18 Unknown History Promethazine [Phenergan] 25 mg PO Q6HR PRN 09/10/18 09/10/18 Unknown History QUEtiapine [SEROquel] 25 mg PO BID 09/10/18 09/10/18 Unknown History hydrOXYzine PAMOATE [Vistaril] 25 mg PO Q8H 09/10/18 09/10/18 Unknown History Polyethylene Glycol 3350 [Miralax 17 gm FEEDTUBE QDAY #30 powd.pack 09/15/18 U nknown Rx 3350] Review of Systems ROS: Stated complaint: PEG TUBE OUT Other details as noted in HPI Comment: Unobtainable due to pts medical conditions Medications and Allergies Allergies Allergy/AdvReac Type Severity Reaction Status Date / Time No Known Allergies Allergy Verified 10/21/18 13:29 Home Medications Medication Instructions Recorded Confirmed Last Taken Type Acetaminophen [Acetaminophen TAB] 650 mg PO Q4H PRN #30 tablet 02/16/18 09/10/18 Unknown Rx Escitalopram Oxalate [Lexapro] 5 mg PO QDAY 09/10/18 09/10/18 Unknown History Famotidine [Pepcid] 20 mg PO BID 09/10/18 09/10/18 Unknown History Lactobacillus Acidophilus 1 each PO DAILY 09/10/18 09/10/18 Unknown History [Acidophilus Lactobacilli] Metoprolol [Lopressor TAB] 25 mg PO BID 09/10/18 09/10/18 Unknown History Ondansetron [Zofran ODT TAB] 4 mg PO Q8HR 09/10/18 09/10/18 Unknown History Promethazine [Phenergan] 25 mg PO Q6HR PRN 09/10/18 09/10/18 Unknown History QUEtiapine [SEROquel] 25 mg PO BID 09/10/18 09/10/18 Unknown History hydrOXYzine PAMOATE [Vistaril] 25 mg PO Q8H 09/10/18 09/10/18 Unknown History Polyethylene Glycol 3350 [Miralax 17 gm FEEDTUBE QDAY #30 powd.pack 09/15/18 Unknown Rx 3350] Active Meds: Active Medications Acetaminophen (Tylenol) 650 mg PO Q4H PRN PRN Reason: Pain MILD(1-3)/Fever >100.5/SAL[place] Lipase/Protease/Amylase (Pancreaze Dr 10,500 Unit) 1 each FEEDTUBE PRN PRN PRN Reason: For Clogged Feeding Tube Heparin Sodium (Porcine) (Heparin) 5,000 unit SUB-Q Q12HR NIYA Hydromorphone HCl (Dilaudid) 0.25 mg IV Q3H PRN PRN Reason: Pain, Moderate (4-6) Sodium Chloride (Nacl 0.9% 1000 Ml) 1,000 mls @ 125 mls/hr IV ONCE ONE Stop: 10/22/18 00:30 Last Admin: 10/21/18 17:11 Dose: 125 mls/hr Documented by: Sodium Chloride (Nacl 0.45% 1000 Ml) 1,000 mls @ 100 mls/hr IV DIRECT NIYA Ondansetron HCl (Zofran) 4 mg IV Q8H PRN PRN Reason: Nausea And Vomiting Simple Syrup (Simple Syrup) 15 ml FEEDTUBE PRN PRN PRN Reason: Hypoglycemia Simple Syrup (Simple Syrup) 30 ml FEEDTUBE PRN PRN PRN Reason: Hypoglycemia Sodium Bicarbonate (Sodium Bicarbonate) 325 mg FEEDTUBE PRN PRN PRN Reason: For Clogged Feeding Tube Sodium Chloride (Sodium Chloride Flush Syringe 10 Ml) 10 ml IV BID NIYA Sodium Chloride (Sodium Chloride Flush Syringe 10 Ml) 10 ml IV PRN PRN PRN Reason: LINE FLUSH Exam - Constitutional Vitals: Temp Pulse Resp BP Pulse Ox 97.7 F 80 12 155/85 99 10/21/18 13:42 10/21/18 13:42 10/21/18 13:42 10/21/18 13:42 10/21/18 13:42 Results - Labs CBC & Chem 7: 10/21/18 13:58 10/21/18 13:58 Labs: Laboratory Last Values WBC 6.6 K/mm3 (4.5-11.0) 10/21/18 13:58 RBC 3.80 M/mm3 (3.65-5.03) 10/21/18 13:58 Hgb 11.5 gm/dl (11.8-15.2) L 10/21/18 13:58 Hct 35.0 % (35.5-45.6) L 10/21/18 13:58 MCV 92 fl (84-94) 10/21/18 13:58 MCH 30 pg (28-32) 10/21/18 13:58 MCHC 33 % (32-34) 10/21/18 13:58 RDW 18.1 % (13.2-15.2) H 10/21/18 13:58 Plt Count 237 K/mm3 (140-440) 10/21/18 13:58 Lymph % (Auto) 28.0 % (13.4-35.0) 10/21/18 13:58 [place] % (Auto) 6.8 % (0.0-7.3) 10/21/18 13:58 Eos % (Auto) 12.5 % (0.0-4.3) H 10/21/18 13:58 Baso % (Auto) 1.0 % (0.0-1.8) 10/21/18 13:58 Lymph # 1.9 K/mm3 (1.2-5.4) 10/21/18 13:58 Dunn # 0.5 K/mm3 (0.0-0.8) 10/21/18 13:58 Eos # 0.8 K/mm3 (0.0-0.4) H 10/21/18 13:58 Baso # 0.1 K/mm3 (0.0-0.1) 10/21/18 13:58 Seg Neutrophils % 51.7 % (40.0-70.0) 10/21/18 13:58 Seg Neutrophils # 3.4 K/mm3 (1.8-7.7) 10/21/18 13:58 Sodium 133 mmol/L (137-145) L 10/21/18 13:58 Potassium 3.6 mmol/L (3.6-5.0) 10/21/18 13:58 Chloride 93.3 mmol/L (98-107) L 10/21/18 13:58 Carbon Dioxide 25 mmol/L (22-30) 10/21/18 13:58 18 mmol/L 10/21/18 13:58 BUN 62 mg/dL (9-20) H 10/21/18 13:58 3.4 mg/dL (0.8-1.5) H 10/21/18 13:58 Estimated GFR 18 ml/min 10/21/18 13:58 18 % 10/21/18 13:58 Glucose 108 mg/dL (75-100) H 10/21/18 13:58 Calcium 9.9 mg/dL (8.4-10.2) 10/21/18 13:58
[2018-10-21] MEDS ORDERED: NACL 0.45% 1000 ML 1,000 ML IV SCH (18:00)
[2018-10-21] MEDS ORDERED: NACL 0.9% 1000 ML 1,000 ML ONE (18:33)
[2018-10-21] MEDS ORDERED: BABY ASPIRIN ONE (18:34)
[2018-10-21 18:48] LABS: Prealbumin 0.321 g/L (0.200-0.400)
[2018-10-21 21:55] VITALS: BP 166/83
[2018-10-21] MEDS ORDERED: HEPARIN SUB-Q SCH (22:00)
[2018-10-21] MEDS ORDERED: SODIUM CHLORIDE FLUSH SYRINGE 10 ML IV SCH (22:00)
--- NOTE | 2018-10-25 14:39 | Event Note ---
Date: 10/21/18 Patient discharged from ED after Peg tubeexchange Patient was not admitted no medical neccesity jfor admission No BALDO
== END 2018-10-21 21:57 | DRG 394 ==
LOC: ED 13:04 → 2B-ACE 17:26
PROVIDERS: ADMIT Internal Medicine; ATTEND Internal Medicine
PROC: 0D20XUZ Change Feeding Device in Upper Intestinal Tract, External Approach (ICD-10-PCS; principal; 2018-10-21)
DX: K94.23 Gastrostomy malfunction (principal); E87.1 Hypo-osmolality and hyponatremia; I11.0 Hypertensive heart disease with heart failure; I50.9 Heart failure, unspecified; E11.9 Type 2 diabetes mellitus without complications; R79.89 Other specified abnormal findings of blood chemistry; E86.9 Volume depletion, unspecified; Y83.8 Other surgical procedures as the cause of abnormal reaction of the patient, or of later complication, without mention of misadventure at the time of the procedure; Y82.8 Other medical devices associated with adverse incidents; Z79.899 Other long term (current) drug therapy
CPT/HCPCS: 36415; 71045; 74018; 80048; 83036; 83735; 84100; 84134; 85025; G0378; J7030; Q9967